=== PATIENT | male | born 1960 ===

== ENCOUNTER 2018-12-22 10:18 | Inpatient (IN) | payer MEDICARE ==
[2018-12-22] VITALS (14 sets, daily range): BP systolic 92–123; BP diastolic 42–58
[~2018-12-22] VITALS: Ht 182.9 cm; Wt 97.5 kg
[~2018-12-22 10:18] MED LIST: ACET500T33 PO; ATOR40TA59 PO; BISA10SU55 RC; BISACODYL 10 MG SUPP.RECT. ONE; BISACODYL 10 MG SUPP.RECT. PR PRN; BUPIVAC MPF-EPI 0.5%-1:200000 30 ML VIAL. ONE; CARV12.511 PO; CHOL10003 PO; DEXAMETHASONE SOD PHOS 20 MG/5 ML VIAL. ONE; FAMOTIDINE 20 MG/2 ML VIAL ONE; HEPARIN 1,000 UNIT in IV NORMAL SALINE 1,000 ML for SURG PERIOP IRR ONE; HYDROmorphone 2 MG/ML VIAL IV PRN; IBUPROFEN 200 MG TABLET. PO SCH; INSU100V SQ; IOHEXOL 300 MG/ML 100ML VIAL. ONE; IPRA3AMP29 NEB; IV RINGERS,LACTATED 1000ML 1,000 ML IV SCH; LIDOCAINE 2% PF 5 ML VIAL. ONE; MIDAZOLAM HCL/PF 2 MG/2 ML VIAL. ONE; MORPHINE SULFATE 2 MG/ML VIAL. IV PRN; ONDA4VIA7 IJ; ONDANSETRON PF 4 MG/2 ML VIAL. IV PRN; ONDANSETRON PF 4 MG/2 ML VIAL. ONE; PIOG15TA42 PO; PROCHLORPERAZINE 10 MG/2 ML VIAL. IV PRN; PROPOFOL 20 ML IV ONE; ROCURONIUM 50 MG/5 ML VIAL. ONE; SENN-37 PO; SIME80TA14 PO; SURGICEL HEMOSTAT 4X8 EACH. ONE; [UNRECOGNIZED DRUG - CODE] IV; fentaNYL PF VIAL 100 MCG/2 ML VIAL IV PRN; fentaNYL PF VIAL 100 MCG/2 ML VIAL ONE
--- NOTE | 2018-12-22 11:35 | PDOC1 ---
History and Physical Date of Admission Date of Admission DATE: 12/22/18 TIME: 11:21 Identification/Chief Complaint Chief Complaint Inability to eat Source Source: Chart review, Patient History of Present Illness History of Present Illness 58 yo M admitted to [facility] on 11/09 with abd pain and weakness going on for 3 weeks prior to this. He was diagnosed with severe necrotizing pancreatitis. This is noted to be EtOH induced. He was treated there with conservative management with gradual improvement. He was treated with TPN. He was transferred to [facility] on 11/17 with continued management. He has been unable to eat during this time. Multiple images have demonstrated a large pancreatic pseudocyst which has been persistent and stable with obstruction of the stomach. Patient has been unable to eat secondary to this. GI has evaluated and he has been followed. Given this finding, pt is best served by pancreatic pseudocystgastrostomy with concurrent cholecystectomy (occult microlithiasis). He is seen in preop and currently without new c/o. His abdominal pain has essentially resolved. Past Medical History Cardiovascular: AFIB, CAD, Hyperlipidemia Endocrine: Diabetes Past Surgical History Past Surgical History: CABG Family History Family History: No Significant Social History Smoke: No ALCOHOL: heavy Current Medications Current Medications Current Medications Heparin Sodium (Porcine) 1000 unit/Sodium Chloride 1,001 ml @ 1,001 mls/hr 1X ONCE IRR ; Start 12/22/18 at 06:00; Stop 12/22/18 at 06:59; Status DC Ondansetron HCl (Zofran) 4 mg PRN Q6HRS PRN IV NAUSEA/VOMITING; Start 12/22/18 at 07:00; Stop 12/23/18 at 06:59 Fentanyl Citrate (Fentanyl 2ml Vial) 25 mcg PRN Q5MIN PRN IV MILD PAIN; Start 12/22/18 at 07:00; Stop 12/23/18 at 06:59 Fentanyl Citrate (Fentanyl 2ml Vial) 50 mcg PRN Q5MIN PRN IV MODERATE TO SEVERE PAIN; Start 12/22/18 at 07:00; Stop 12/23/18 at 06:59 Morphine Sulfate (Morphine Sulfate) 1 mg PRN Q10MIN PRN IV SEVERE PAIN; Start 12/22/18 at 07:00; Stop 12/23/18 at 06:59 Ringer's Solution 1,000 ml @ 30 mls/hr Q24H IV Last administered on 12/22/18at 10:55; Start 12/22/18 at 07:00; Stop 12/22/18 at 18:59 Hydromorphone HCl (Dilaudid) 0.5 mg PRN Q10MIN PRN IV SEV PAIN, Second choice; Start 12/22/18 at 07:00; Stop 12/23/18 at 06:59 Prochlorperazine Edisylate (Compazine) 5 mg PACU PRN PRN IV NAUSEA, MRX1; Start 12/22/18 at 07:00; Stop 12/23/18 at 06:59 Ibuprofen (Motrin) 200 mg 1X PREOP PO ; Start 12/22/18 at 08:00 Cefazolin Sodium/ Dextrose 50 ml @ 100 mls/hr 1X PREOP PRN IV PRIOR TO PROCEDURE; Start 12/22/18 at 06:00; Stop 12/22/18 at 18:00 Bisacodyl (Dulcolax Supp) 10 mg 1X PRN PRN [place] CONSTIPATION; Start 12/22/18 at 08:00; Stop 12/22/18 at 18:00 Bupivacaine HCl/ Epinephrine Bitart (Sensorcain-Mpf Epi 0.5%-1:635395) 30 ml STK -MED ONCE .ROUTE ; Start 12/22/18 at 07:03; Stop 12/22/18 at 08:05; Status DC Iohexol (Omnipaque 300 Mg/ml) 100 ml STK-MED ONCE .ROUTE ; Start 12/22/18 at 07: 03; Stop 12/22/18 at 08:05; Status DC Cellulose (Surgicel Hemostat 4x8) 1 each STK-MED ONCE .ROUTE ; Start 12/22/18 at 07:03; Stop 12/22/18 at 08:05; Status DC Bisacodyl (Dulcolax Supp) 10 mg STK-MED ONCE .ROUTE ; Start 12/22/18 at 07:03; Stop 12/22/18 at 08:05; Status DC Propofol 20 ml @ As Directed STK-MED ONCE IV ; Start 12/22/18 at 09:59; Stop at 10:00; Status DC Lidocaine HCl (Lidocaine Pf 2% Vial) 5 ml STK-MED ONCE .ROUTE ; Start 12/22/18 at 09:59; Stop 12/22/18 at 10:00; Status DC Dexamethasone Sodium Phosphate (Decadron) 20 mg STK-MED ONCE .ROUTE ; Start at 09:59; Stop 12/22/18 at 10:00; Status DC Ondansetron HCl (Zofran) 4 mg STK-MED ONCE .ROUTE ; Start 12/22/18 at 09:59; Stop 12/22/18 at 10:00; Status DC Famotidine (Pepcid Vial) 20 mg STK-MED ONCE .ROUTE ; Start 12/22/18 at 09:59; Stop 12/22/18 at 10:00; Status DC Rocuronium [place] (Zemuron) 50 mg STK-MED ONCE .ROUTE ; Start 12/22/18 at 10:00 ; Stop 12/22/18 at 10:01; Status DC Midazolam HCl (Versed) 2 mg STK-MED ONCE .ROUTE ; Start 12/22/18 at 10:00; Stop 12/22/18 at 10:01; Status DC Fentanyl Citrate (Fentanyl 2ml Vial) 100 mcg STK-MED ONCE .ROUTE ; Start at 10:01; Stop 12/22/18 at 10:02; Status DC Active Scripts Active Reported Trophamine (Amino Acids 10 %) 500 Ml Iv.soln 500 Ml IV DAILY 2000 Duoneb 0.5-3(2.5) Mg/3 Ml (Albuterol/Ipratropium) 3 Ml Ampul.neb 3 Ml NEB BID Dulcolax (Bisacodyl) 10 Mg Supp.rect 10 Mg RC PRN DAILY PRN Duoneb 0.5-3(2.5) Mg/3 Ml (Albuterol/Ipratropium) 3 Ml Ampul.neb 3 Ml NEB PRN Q4HRS PRN Atorvastatin Calcium 40 Mg Tablet 1 Tab PO QHS Simethicone 80 Mg Tab.chew 80 Mg PO PRN TID PRN Humalog (Insulin Lispro) 100 Unit/1 Ml Vial 0 SQ Q6HRS Ondansetron Hcl 4 Mg/2 Ml Vial (Ondansetron Hcl/Pf) 4 Mg/2 Ml Vial 4 Mg IJ PRN Q6HRS PRN Actos (Pioglitazone Hcl) 15 Mg Tablet 1 Tab PO DAILY Tylenol Extra Strength (Acetaminophen) 500 Mg Tablet 1,000 Mg PO PRN Q6HRS PRN Senokot-S Tablet (Sennosides/Docusate Sodium) 1 Each Tablet 1 Tab PO BID Vitamin D3 (Cholecalciferol (Vitamin D3)) 1,000 Unit Tablet 1 Tab PO DAILY Carvedilol (Carvedilol) 12.5 Mg Tablet 12.5 Mg PO BIDWMEALS Allergies Allergies: Coded Allergies: No Known Drug Allergies (Unverified , 12/22/18) ROS PSYCHOLOGICAL ROS: YES: Concentration difficultie Gastrointestinal: Yes Nausea, Yes Other (poor po intake) Physical Exam General: Alert, Oriented X3, Cooperative, No acute distress HEENT: Atraumatic Lungs: Normal air movement Abdomen: Soft, No tenderness, No masses Rectal Exam: not examined Extremities: No clubbing, No cyanosis Skin: No rashes, No breakdown Neuro: Normal speech, Sensation intact Psych/Mental Status: Mental status NL, Mood NL Vitals Vitals Vital Signs Date Time Temp Pulse Resp B/P (MAP) Pulse Ox O2 Delivery O2 Flow Rate FiO2 12/22/18 10:52 98.1 67 18 104/57 92 Nasal Cannula 3 98.1 Labs Labs Laboratory Tests Test 12/22/18 10:42 Glucose (Fingerstick) 120 mg/dL (70-99) Laboratory Tests Test 12/22/18 10:42 Glucose (Fingerstick) 120 mg/dL (70-99) Images Images CT 12/14/2018-large pancreatic pseudocyst, stable, small free fluid, proximal small bowel distention, stable atelectasis and effusions VTE Prophylaxis Ordered VTE Prophylaxis Devices: Yes VTE Pharmacological Prophylaxi: Contraindicated Assessment/Plan Assessment/Plan Large pancreatic pseudocyst, not resolved with conservative measures and impinging on stomach, preventing PO intake. TO OR for laparoscopic versus open cystgastrostomy and cholecystectomy with cholangiogram. R/R/B/A d/w pt, as previous discussed on multiple occasions. Multiple discussions with other attending physicians. Risks, including, but not limited to: bleeding, infection, damage to surrounding structures, risk of anesthesia, risk of open. He appears to understand, his questions are answered and he elects to proceed. GOMEZ BRADLEY MD Dec 22, 2018 11:35
[2018-12-22] MEDS ORDERED: ePHEDrine PF IN SALINE 50 MG/10 ML SYRINGE. IV ONE ×2 (11:42→14:29)
[2018-12-22] MEDS ORDERED: ceFAZolin 2GM PREMIX 2 GM/50 ML BAG IV ONE (12:00)
[2018-12-22] MEDS ORDERED: GLYCOPYRROLATE 1 MG/5 ML VIAL. ONE (12:28)
[2018-12-22] MEDS ORDERED: NEOSTIGMINE METHYLSULFATE 5 MG/5 ML SYRINGE. ONE (12:29)
[2018-12-22] MEDS ORDERED: SEVOFLURANE > 120 MINUTES. IH ONE (12:35)
[2018-12-22] MEDS ORDERED: PHENYLEPHRINE in 0.9% NACL PF 1 MG/10 ML SYRINGE. IV ONE (12:39)
[2018-12-22] MEDS ORDERED: ALBUMIN HUMAN 5% 500 ML IV ONE ×2 (12:48→13:57)
[2018-12-22] MEDS ORDERED: PHENYLEPHRINE 10 MG/ML VIAL. ONE (12:49)
[2018-12-22] MEDS ORDERED: ROCURONIUM 50 MG/5 ML VIAL. ONE ×2 (13:04→13:52)
[2018-12-22] MEDS ORDERED: 0.9 % SODIUM CHLORIDE 10 ML DISP.SYRIN. IV PRN (14:45)
[2018-12-22] MEDS ORDERED: MORPHINE SULFATE/PF 30 ML IV PRN (14:45)
[2018-12-22] MEDS ORDERED: NALOXONE 0.4 MG/ML VIAL. IV PRN (14:45)
[2018-12-22] MEDS ORDERED: ONDANSETRON PF 4 MG/2 ML VIAL. IV PRN (14:45)
--- NOTE | 2018-12-22 14:54 | RAD ---
Portable abdomen, 12/22/2018: HISTORY: Postop evaluation A single AP view centered at the level of the left midabdomen was obtained. The right flank region and lower pelvis was not included on this exam. This image reveals a gastrostomy tube in place. An additional tube overlying the right upper quadrant is probably a surgical drain. The abdominal gas pattern is unremarkable. There is no evidence of a retained surgical instrument, needle or radiopaque sponge on this limited exam. Electronically signed by: Michoacano Bruce MD (12/22/2018 2:51 PM) [facility]
--- NOTE | 2018-12-22 15:00 | PDOC4 ---
OPERATIVE NOTE Date: Date: Dec 22, 2018 Pre-Op Diagnosis: Severe pancreatitis with resultant pancreatic pseudocyst Post-Op Diagnosis: same, severe cholecystitis Procedure Performed: Laparoscopic converted to open pancreatic pseudocystgastrostomy, open cholecystectomy, G-tube placement Surgeon: Delfino Bradley Asst: Dr. Rainer Patricia Anesthesia Type: GETA Blood Loss: 1000 Specimans Obtained: gallbladder, pseudocyst wall, debridement material, and fluid, cultures and cytology Findings: Severe cholecystitis with obliteration of surgical plans, large pancreatic pseudocyst with stomach impingement Complications: none Operative Note: After obtaining informed consent (also d/w pt's supportive brother), patient was taken to OR, induced under GETA and prepped in the usual fashion. 5 mm port placed umbilical and LLQ, all under laparoscopic guidance. This demonstrated large cyst with minimal availability to do pneumoperitoneum. Given this, an open procedure is elected. An upper abdominal incision made with cautery. Minimal subcutaneous fat but large amount of intraabdominal visceral fat. Stomach identified and anterior gastrotomy opened. Posterior defect excised with cautery and ligasure. This excised stomach/cyst wall was excised and sent to pathology. 2 liters of fluid was evacuated with collapse of cyst. Necrotic tissue was excised using digital dissection. Cyst was mature without opening into any other cavity. Cyst cavity was well adherent to stomach. 20 Gastrostomy was placed through anterior defect with 3 0 vicryl pursestring and attachment to anterior abdominal wall with multiple 3 0 vicryl. Attention was then turned to gallbladder. This was extremely inflamed with obliteration of surgical planes. Gallbladder was necrotic with purulent contents, which were spilled, secondary to fragility. Gallbladder taken off fossa in a dome down fashion using cautery. An obvious cystic duct was not identified. Further dissection was not indicated, given potential for injury of common bile duct or other structures, given obliteration of planes. An obvious cystic duct could not be evaluated intraluminal. As such, a contour stapler was taken at the base. Even here, there was some necrotic tissue. This was oversewn using 3 0 vicryl. Gallbladder sent to pathology for evaluation. Most of blood loss occurred with this gallbladder dissection. Hemostasis was obtained with removal of gallbladder, cautery and surgicel. Copious irrigation. No evidence of bleeding or other pathology. 19 MISTY drain was placed in fossa and secured with 3 0 nylon. G-tube secured with 3 0 nylon. Fascia closed with 0 looped PDS. Skin repaired with 3 0 vicryl and 4 0 monocryl. Dressing placed. Patient tolerated the procedure but was noted to be low on volume throughout. Given extensive infected nature of the procedure, he will be transferred to ICU in a vented condition. All counts correct. Wound class is 4, dirty. GOMEZ BRADLEY MD Dec 22, 2018 15:00
[2018-12-22 15:33] LABS: BASE EXCESS ABG 2 mmol/L (-3-3); HCO3 ABG 26 mmol/L (21-28); PCO2 ABG 38 mmHg (35-46); PO2 ABG 84 mmHg (75-108)
--- NOTE | 2018-12-22 15:33 | PDOC ---
Date and Time In operating room patient developed low blood pressures unresponsive to usual doses of pressors. We were unable to give fluid rapidly through existing PIC line. He was started on dopamine and I placed a R IJ 3 lumen, CVP was 7. Given 1000 ml Albumin as well as 1L LR rapidly with stabilization of BP but continued to require dopamine. CVP continued to decline to 4. Arterial line was also placed. Thought is that he may be getting septic from gallbladder. With that in mind he was left intubated. EBL was less than 1000. Will continue dopamine. Dr Cook aware. Current Medications Current Medications Heparin Sodium (Porcine) 1000 unit/Sodium Chloride 1,001 ml @ 1,001 mls/hr 1X ONCE IRR Last administered on 12/22/18at 12:56; Start 12/22/18 at 06:00; Stop at 06:59; Status DC Ondansetron HCl (Zofran) 4 mg PRN Q6HRS PRN IV NAUSEA/VOMITING; Start 12/22/18 at 07:00; Stop 12/23/18 at 06:59 Fentanyl Citrate (Fentanyl 2ml Vial) 25 mcg PRN Q5MIN PRN IV MILD PAIN; Start 12/22/18 at 07:00; Stop 12/23/18 at 06:59 Fentanyl Citrate (Fentanyl 2ml Vial) 50 mcg PRN Q5MIN PRN IV MODERATE TO SEVERE PAIN; Start 12/22/18 at 07:00; Stop 12/23/18 at 06:59 Morphine Sulfate (Morphine Sulfate) 1 mg PRN Q10MIN PRN IV SEVERE PAIN; Start 12/22/18 at 07:00; Stop 12/23/18 at 06:59 Ringer's Solution 1,000 ml @ 30 mls/hr Q24H IV Last administered on 12/22/18at 10:55; Start 12/22/18 at 07:00; Stop 12/22/18 at 18:59 Hydromorphone HCl (Dilaudid) 0.5 mg PRN Q10MIN PRN IV SEV PAIN, Second choice; Start 12/22/18 at 07:00; Stop 12/23/18 at 06:59 Prochlorperazine Edisylate (Compazine) 5 mg PACU PRN PRN IV NAUSEA, MRX1; Start 12/22/18 at 07:00; Stop 12/23/18 at 06:59 Ibuprofen (Motrin) 200 mg 1X PREOP PO ; Start 12/22/18 at 08:00 Cefazolin Sodium/ Dextrose 50 ml @ 100 mls/hr 1X PREOP PRN IV PRIOR TO PROCEDURE Last administered on 12/22/18at 11:28; Start 12/22/18 at 06:00; Stop at 18:00 Bisacodyl (Dulcolax Supp) 10 mg 1X PRN PRN [place] CONSTIPATION; Start 12/22/18 at 08:00; Stop 12/22/18 at 18:00 Bupivacaine HCl/ Epinephrine Bitart (Sensorcain-Mpf Epi 0.5%-1:889862) 30 ml STK -MED ONCE .ROUTE Last administered on 12/22/18at 12:23; Start 12/22/18 at 07:03 ; Stop 12/22/18 at 08:05; Status DC Iohexol (Omnipaque 300 Mg/ml) 100 ml STK-MED ONCE .ROUTE Last administered on at 12:24; Start 12/22/18 at 07:03; Stop 12/22/18 at 08:05; Status DC Cellulose (Surgicel Hemostat 4x8) 1 each STK-MED ONCE .ROUTE Last administered on 12/22/18at 13:58; Start 12/22/18 at 07:03; Stop 12/22/18 at 08:05; Status DC Bisacodyl (Dulcolax Supp) 10 mg STK-MED ONCE .ROUTE ; Start 12/22/18 at 07:03; Stop 12/22/18 at 08:05; Status DC Propofol 20 ml @ As Directed STK-MED ONCE IV ; Start 12/22/18 at 09:59; Stop at 10:00; Status DC Lidocaine HCl (Lidocaine Pf 2% Vial) 5 ml STK-MED ONCE .ROUTE ; Start 12/22/18 at 09:59; Stop 12/22/18 at 10:00; Status DC Dexamethasone Sodium Phosphate (Decadron) 20 mg STK-MED ONCE .ROUTE ; Start at 09:59; Stop 12/22/18 at 10:00; Status DC Ondansetron HCl (Zofran) 4 mg STK-MED ONCE .ROUTE ; Start 12/22/18 at 09:59; Stop 12/22/18 at 10:00; Status DC Famotidine (Pepcid Vial) 20 mg STK-MED ONCE .ROUTE ; Start 12/22/18 at 09:59; Stop 12/22/18 at 10:00; Status DC Rocuronium [place] (Zemuron) 50 mg STK-MED ONCE .ROUTE ; Start 12/22/18 at 10:00 ; Stop 12/22/18 at 10:01; Status DC Midazolam HCl (Versed) 2 mg STK-MED ONCE .ROUTE ; Start 12/22/18 at 10:00; Stop 12/22/18 at 10:01; Status DC Fentanyl Citrate (Fentanyl 2ml Vial) 100 mcg STK-MED ONCE .ROUTE ; Start at 10:01; Stop 12/22/18 at 10:02; Status DC Ephedrine Sulfate (ePHEDrine PF IN SALINE SYRINGE) 50 mg STK-MED ONCE IV ; Start 12/22/18 at 11:42; Stop 12/22/18 at 11:43; Status DC Glycopyrrolate (Robinul) 1 mg STK-MED ONCE .ROUTE ; Start 12/22/18 at 12:28; Stop 12/22/18 at 12:29; Status DC Neostigmine Methylsulfate (Neostigmine Methylsulfate) 5 mg STK-MED ONCE .ROUTE ; Start 12/22/18 at 12:29; Stop 12/22/18 at 12:30; Status DC Sevoflurane (Ultane) 90 ml STK-MED ONCE IH ; Start 12/22/18 at 12:35; Stop 12/22 at 12:36; Status DC Phenylephrine HCl (PHENYLEPHRINE in 0.9% NACL PF) 1 mg STK-MED ONCE IV ; Start 12/22/18 at 12:39; Stop 12/22/18 at 12:40; Status DC Albumin Human 500 ml @ As Directed STK-MED ONCE IV ; Start 12/22/18 at 12:48; Stop 12/22/18 at 12:49; Status DC Phenylephrine HCl ([place]-Synephrine Inj) 10 mg STK-MED ONCE .ROUTE ; Start at 12:49; Stop 12/22/18 at 12:50; Status DC Rocuronium [place] (Zemuron) 50 mg STK-MED ONCE .ROUTE ; Start 12/22/18 at 13:04 ; Stop 12/22/18 at 13:05; Status DC Dopamine HCl/ Dextrose 250 ml @ As Directed STK-MED ONCE IV ; Start 12/22/18 at 13:15; Stop 12/22/18 at 13:16; Status DC Ephedrine Sulfate ([place]kovaz) 50 mg STK-MED ONCE .ROUTE ; Start 12/22/18 at 13:52; Stop 12/22/18 at 13:53; Status DC Rocuronium [place] (Zemuron) 50 mg STK-MED ONCE .ROUTE ; Start 12/22/18 at 13:52 ; Stop 12/22/18 at 13:53; Status DC Albumin Human 500 ml @ As Directed STK-MED ONCE IV ; Start 12/22/18 at 13:57; Stop 12/22/18 at 13:58; Status DC Ephedrine Sulfate (ePHEDrine PF IN SALINE SYRINGE) 50 mg STK-MED ONCE IV ; Start 12/22/18 at 14:29; Stop 12/22/18 at 14:30; Status DC Metronidazole 100 ml @ 100 mls/hr Q12HR IV ; Start 12/22/18 at 21:00; Status UNV Cefazolin Sodium/ Dextrose 50 ml @ 100 mls/hr Q8H IV ; Start 12/22/18 at 15:00 ; Status UNV Enoxaparin Sodium (Lovenox 40mg Syringe) 40 mg Q24H SQ ; Start 12/23/18 at 09:00 Sodium Chloride (Normal Saline Flush) 3 ml QSHIFT PRN IV AFTER MEDS AND BLOOD DRAWS; Start 12/22/18 at 14:45 Ringer's Solution 1,000 ml @ 100 mls/hr Q10H IV ; Start 12/22/18 at 16:00 Naloxone HCl (Narcan) 0.4 mg PRN Q2MIN PRN IV SEE INSTRUCTIONS; Start 12/22/18 at 14:45 Sodium Chloride 1,000 ml @ 25 mls/hr Q24H IV ; Start 12/22/18 at 16:00 Morphine Sulfate 30 ml @ 0 mls/hr CONT PRN PRN IV PER PROTOCOL; Start 12/22/18 at 14:45 Ondansetron HCl (Zofran) 4 mg PRN Q6HRS PRN IV NAUESA, 1ST CHOICE; Start at 14:45 Chlorhexidine Gluconate (Peridex) 15 ml BID MM ; Start 12/22/18 at 21:00; Status UNV Active Scripts Active Reported Trophamine (Amino Acids 10 %) 500 Ml Iv.soln 500 Ml IV DAILY 2000 Duoneb 0.5-3(2.5) Mg/3 Ml (Albuterol/Ipratropium) 3 Ml Ampul.neb 3 Ml NEB BID Dulcolax (Bisacodyl) 10 Mg Supp.rect 10 Mg RC PRN DAILY PRN Duoneb 0.5-3(2.5) Mg/3 Ml (Albuterol/Ipratropium) 3 Ml Ampul.neb 3 Ml NEB PRN Q4HRS PRN Atorvastatin Calcium 40 Mg Tablet 1 Tab PO QHS Simethicone 80 Mg Tab.chew 80 Mg PO PRN TID PRN Humalog (Insulin Lispro) 100 Unit/1 Ml Vial 0 SQ Q6HRS Ondansetron Hcl 4 Mg/2 Ml Vial (Ondansetron Hcl/Pf) 4 Mg/2 Ml Vial 4 Mg IJ PRN Q6HRS PRN Actos (Pioglitazone Hcl) 15 Mg Tablet 1 Tab PO DAILY Tylenol Extra Strength (Acetaminophen) 500 Mg Tablet 1,000 Mg PO PRN Q6HRS PRN Senokot-S Tablet (Sennosides/Docusate Sodium) 1 Each Tablet 1 Tab PO BID Vitamin D3 (Cholecalciferol (Vitamin D3)) 1,000 Unit Tablet 1 Tab PO DAILY Carvedilol (Carvedilol) 12.5 Mg Tablet 12.5 Mg PO BIDWMEALS Pertinent Labs/Test Laboratory Tests Test 12/22/18 10:42 Glucose (Fingerstick) 120 mg/dL (70-99) Laboratory Tests Test 12/22/18 10:42 Glucose (Fingerstick) 120 mg/dL (70-99) LAST VITALS Vital Signs Date Time Temp Pulse Resp B/P (MAP) Pulse Ox O2 Delivery O2 Flow Rate FiO2 12/22/18 10:52 98.1 67 18 104/57 92 Nasal Cannula 3 98.1 SHAN RANGEL MD Dec 22, 2018 15:33
[2018-12-22 15:37] LABS: FIO2 ABG 60
[2018-12-22] MEDS: IV RINGERS,LACTATED 1000ML 1,000 ML IV SCH (16:00)
[2018-12-22] MEDS: IV NORMAL SALINE 1000ML BAG 1,000 ML IV SCH (16:00)
[2018-12-22] MEDS: MIDAZOLAM 100mg/100ml NS BAG 100 ML IV PRN (16:09)
--- NOTE | 2018-12-22 16:18 | RAD ---
Portable chest, 12/22/2018: HISTORY: Check ET tube placement No previous chest radiographs are available at this time for comparison purposes. There has been a previous median sternotomy. The ET tube tip lies 5-6 cm above the juan. A right jugular central venous catheter extends into the superior vena cava. A right PICC extends into the inferior aspect of the superior vena cava. The heart is at the upper limits of normal in size. The left hemidiaphragm is obscured suggesting pleural fluid and/or infiltrate in the left base. There is minimal streaky right infrahilar atelectasis/infiltrate. There is no evidence of pneumothorax. IMPRESSION: 1. Satisfactory tube positions as described above. 2. Moderate left basilar opacity suggesting pleural fluid and underlying atelectasis/infiltrate. 3. Mild right infrahilar atelectasis/infiltrate. Electronically signed by: Michoacano Bruce MD (12/22/2018 4:15 PM) [facility]
--- NOTE | 2018-12-22 19:29 | NUR ---
Nursing Note 1500- Pt arrived to ICU room 114 at this time accompanied by PACU team. Pt intubated. Ventilator set up by RT. Dopamine infusing through right IJ at 15mcg/kg/min. VSS. Orders in place to admit pt to ICU post op instead of 4N. Pts family at bedside. Will continue monitor.
[2018-12-22 20:47] LABS: BASO % 1 % (0-3); EOS # 0.1 x10^3/uL (0.0-0.7); EOS % 1 % (0-3); HEMATOCRIT 22.1 % (39.0-53.0); LYMPH # 0.6 x10^3/uL (1.0-4.8); LYMPH % 10 % (24-48); MEAN CORPUSCULAR HEMOGLOBIN 25 pg (25-35); MEAN CORPUSCULAR HGB CONC 31 g/dL (31-37); MEAN CORPUSCULAR VOLUME 80 fL (79-100); MONO # 0.5 x10^3/uL (0.0-1.1); MONO % 9 % (0-9); NEUT # 4.7 x10^3uL (1.8-7.7); NEUT % 80 % (31-73); PLATELET COUNT 203 x10^3/uL (140-400); RED BLOOD COUNT 2.79 x10^6/uL (4.30-5.70); RED CELL DISTRIBUTION WIDTH 19.4 % (11.5-14.5); WHITE BLOOD COUNT 5.9 x10^3/uL (4.0-11.0)
[2018-12-22] MEDS: CHLORHEXIDINE 0.12% 15 ML MOUTHWASH. MM SCH (21:00)
[2018-12-23] VITALS (26 sets, daily range): BP systolic 98–135; BP diastolic 44–87
[2018-12-23] MEDS: MIDAZOLAM 100mg/100ml NS BAG 100 ML IV PRN ×2 (03:37→23:11)
[2018-12-23] MEDS: IV RINGERS,LACTATED 1000ML 1,000 ML IV SCH ×2 (03:38→15:07)
[2018-12-23 06:33] LABS: ALBUMIN 1.5 g/dL (3.4-5.0); ALBUMIN/GLOBULIN RATIO 0.5 (1.0-1.7); CALCIUM 7.6 mg/dL (8.5-10.1); CREATININE 0.6 mg/dL (0.7-1.3); GFR 138.4; MAGNESIUM 1.3 mg/dL (1.8-2.4); POTASSIUM 3.8 mmol/L (3.5-5.1); TOTAL BILIRUBIN 2.3 mg/dL (0.2-1.0); TOTAL PROTEIN 4.3 g/dL (6.4-8.2)
[2018-12-23 06:43] LABS: BASO # 0.1 x10^3/uL (0.0-0.2); BASO % 1 % (0-3); EOS # 0.1 x10^3/uL (0.0-0.7); EOS % 1 % (0-3); HEMATOCRIT 24.1 % (39.0-53.0); HEMOGLOBIN 7.5 g/dL (13.0-17.5); LYMPH # 0.8 x10^3/uL (1.0-4.8); LYMPH % 12 % (24-48); MEAN CORPUSCULAR HEMOGLOBIN 25 pg (25-35); MEAN CORPUSCULAR HGB CONC 31 g/dL (31-37); MEAN CORPUSCULAR VOLUME 79 fL (79-100); MONO # 0.7 x10^3/uL (0.0-1.1); MONO % 11 % (0-9); NEUT % 75 % (31-73); PLATELET COUNT 217 x10^3/uL (140-400); RED BLOOD COUNT 3.04 x10^6/uL (4.30-5.70); RED CELL DISTRIBUTION WIDTH 18.8 % (11.5-14.5); WHITE BLOOD COUNT 6.6 x10^3/uL (4.0-11.0)
--- NOTE | 2018-12-23 07:43 | EKG ---
[facility] [address] [place] [address] Test Date: 2018-12-23 Test Time: 02:07:36 Pat Name: JUSTIN OLSEN Department: Room: 114 1 Gender: M [employer]ter: : 1960 Requested By: REHANA CASE Order Number: [id number] Reading MD: Ra Chapman MD Measurements Intervals [place] Rate: 80 P: ME: QRS: 28 QRSD: 82 T: 22 QT: 456 QTc: 530 Interpretive Statements PROBABLE SR NON-SPECIFIC ST/T CHANGES PROLONGED QT Electronically Signed On 12-27-2018 21:51:26 CDT by Ra Chapman MD
--- NOTE | 2018-12-23 08:39 | RAD ---
Portable chest, 12/23/2018: HISTORY: Respiratory failure Comparison is made to yesterday's study. The ET tube tip lies well above the juan. The right jugular central venous catheter and right PICC are unchanged in positions. The heart is at the upper limits of normal in size. The moderate left basilar opacity appears to have worsened slightly. The appearance suggests pleural fluid with underlying atelectasis/infiltrate. There is mild unchanged atelectasis/infiltrate in the right base. There is no evidence of pneumothorax. IMPRESSION: 1. Stable tube positions. 2. Slight worsening of the left basilar opacity compatible with a moderate sized pleural effusion and underlying atelectasis/infiltrate. Electronically signed by: Michoacano Bruce MD (12/23/2018 8:36 AM) [facility]
--- NOTE | 2018-12-23 08:44 | PDOC ---
SURGICAL PROGRESS NOTE Subjective Pt intubated and sedated, on dopamine, but less then yesterday, noted to have increasing UOP and clear Vital Signs Vital Signs Date Time Temp Pulse Resp B/P (MAP) Pulse Ox O2 Delivery O2 Flow Rate FiO2 12/23/18 08:32 96 Ventilator 12/23/18 08:00 86 101/47 (65) 12/23/18 08:00 99.3 20 99.3 12/22/18 10:52 3 I&O Intake and Output 12/23/18 06:59 Intake Total 3071.93 ml Output Total 2225 ml Balance 846.93 ml Intake Oral 0 ml IV Total 3071.93 ml Output Urine Total 885 ml Drainage Total 1340 ml PATIENT HAS A MAGAÑA: Yes (accurate I and Os) General: No acute distress Abdomen: Soft, No tenderness, Other (G-tube with bilious output, MISTY with serosang drainage) Labs Laboratory Tests Test 12/22/18 10:42 12/22/18 15:30 12/22/18 20:05 12/23/18 06:00 Glucose (Fingerstick) 120 mg/dL (70-99) Arterial Blood pH 7.45 (7.35-7.45) Arterial Blood pCO2 at Patient Temp 38 mmHg (35-46) Arterial Blood pO2 at Patient Temp 84 mmHg (75-108) Arterial Blood HCO3 26 mmol/L (21-28) Arterial Blood Base Excess 2 mmol/L (-3-3) FiO2 60 White Blood Count 5.9 x10^3/uL (4.0-11.0) 6.6 x10^3/uL (4.0-11.0) Red Blood Count 2.79 x10^6/uL (4.30-5.70) 3.04 x10^6/uL (4.30-5.70) Hemoglobin 7.0 g/dL (13.0-17.5) 7.5 g/dL (13.0-17.5) Hematocrit 22.1 % (39.0-53.0) 24.1 % (39.0-53.0) Mean Corpuscular Volume 80 fL (79-100) 79 fL (79-100) Mean Corpuscular Hemoglobin 25 pg (25-35) 25 pg (25-35) Mean Corpuscular Hemoglobin Concent 31 g/dL (31-37) 31 g/dL (31-37) Red Cell Distribution Width 19.4 % (11.5-14.5) 18.8 % (11.5-14.5) Platelet Count 203 x10^3/uL (140-400) 217 x10^3/uL (140-400) Neutrophils (%) (Auto) 80 % (31-73) 75 % (31-73) Lymphocytes (%) (Auto) 10 % (24-48) 12 % (24-48) Monocytes (%) (Auto) 9 % (0-9) 11 % (0-9) Eosinophils (%) (Auto) 1 % (0-3) 1 % (0-3) Basophils (%) (Auto) 1 % (0-3) 1 % (0-3) Neutrophils # (Auto) 4.7 x10^3uL (1.8-7.7) 5.0 x10^3uL (1.8-7.7) Lymphocytes # (Auto) 0.6 x10^3/uL (1.0-4.8) 0.8 x10^3/uL (1.0-4.8) Monocytes # (Auto) 0.5 x10^3/uL (0.0-1.1) 0.7 x10^3/uL (0.0-1.1) Eosinophils # (Auto) 0.1 x10^3/uL (0.0-0.7) 0.1 x10^3/uL (0.0-0.7) Basophils # (Auto) 0.0 x10^3/uL (0.0-0.2) 0.1 x10^3/uL (0.0-0.2) Sodium Level 142 mmol/L (136-145) Potassium Level 3.8 mmol/L (3.5-5.1) Chloride Level 106 mmol/L (98-107) Carbon Dioxide Level 28 mmol/L (21-32) Anion Gap 8 (6-14) Blood Urea Nitrogen 16 mg/dL (8-26) Creatinine 0.6 mg/dL (0.7-1.3) Estimated GFR (Cockcroft-Gault) 138.4 BUN/Creatinine Ratio 27 (6-20) Glucose Level 195 mg/dL (70-99) Calcium Level 7.6 mg/dL (8.5-10.1) Magnesium Level 1.3 mg/dL (1.8-2.4) Total Bilirubin 2.3 mg/dL (0.2-1.0) Aspartate Amino Transf (AST/SGOT) 41 U/L (15-37) Alanine Aminotransferase (ALT/SGPT) 44 U/L (16-63) Alkaline Phosphatase 256 U/L (46-116) Total Protein 4.3 g/dL (6.4-8.2) Albumin 1.5 g/dL (3.4-5.0) Albumin/Globulin Ratio 0.5 (1.0-1.7) Laboratory Tests Test 12/22/18 10:42 12/22/18 15:30 12/22/18 20:05 12/23/18 06:00 Glucose (Fingerstick) 120 mg/dL (70-99) Arterial Blood pH 7.45 (7.35-7.45) Arterial Blood pCO2 at Patient Temp 38 mmHg (35-46) Arterial Blood pO2 at Patient Temp 84 mmHg (75-108) Arterial Blood HCO3 26 mmol/L (21-28) Arterial Blood Base Excess 2 mmol/L (-3-3) FiO2 60 White Blood Count 5.9 x10^3/uL (4.0-11.0) 6.6 x10^3/uL (4.0-11.0) Red Blood Count 2.79 x10^6/uL (4.30-5.70) 3.04 x10^6/uL (4.30-5.70) Hemoglobin 7.0 g/dL (13.0-17.5) 7.5 g/dL (13.0-17.5) Hematocrit 22.1 % (39.0-53.0) 24.1 % (39.0-53.0) Mean Corpuscular Volume 80 fL (79-100) 79 fL (79-100) Mean Corpuscular Hemoglobin 25 pg (25-35) 25 pg (25-35) Mean Corpuscular Hemoglobin Concent 31 g/dL (31-37) 31 g/dL (31-37) Red Cell Distribution Width 19.4 % (11.5-14.5) 18.8 % (11.5-14.5) Platelet Count 203 x10^3/uL (140-400) 217 x10^3/uL (140-400) Neutrophils (%) (Auto) 80 % (31-73) 75 % (31-73) Lymphocytes (%) (Auto) 10 % (24-48) 12 % (24-48) Monocytes (%) (Auto) 9 % (0-9) 11 % (0-9) Eosinophils (%) (Auto) 1 % (0-3) 1 % (0-3) Basophils (%) (Auto) 1 % (0-3) 1 % (0-3) Neutrophils # (Auto) 4.7 x10^3uL (1.8-7.7) 5.0 x10^3uL (1.8-7.7) Lymphocytes # (Auto) 0.6 x10^3/uL (1.0-4.8) 0.8 x10^3/uL (1.0-4.8) Monocytes # (Auto) 0.5 x10^3/uL (0.0-1.1) 0.7 x10^3/uL (0.0-1.1) Eosinophils # (Auto) 0.1 x10^3/uL (0.0-0.7) 0.1 x10^3/uL (0.0-0.7) Basophils # (Auto) 0.0 x10^3/uL (0.0-0.2) 0.1 x10^3/uL (0.0-0.2) Sodium Level 142 mmol/L (136-145) Potassium Level 3.8 mmol/L (3.5-5.1) Chloride Level 106 mmol/L (98-107) Carbon Dioxide Level 28 mmol/L (21-32) Anion Gap 8 (6-14) Blood Urea Nitrogen 16 mg/dL (8-26) Creatinine 0.6 mg/dL (0.7-1.3) Estimated GFR (Cockcroft-Gault) 138.4 BUN/Creatinine Ratio 27 (6-20) Glucose Level 195 mg/dL (70-99) Calcium Level 7.6 mg/dL (8.5-10.1) Magnesium Level 1.3 mg/dL (1.8-2.4) Total Bilirubin 2.3 mg/dL (0.2-1.0) Aspartate Amino Transf (AST/SGOT) 41 U/L (15-37) Alanine Aminotransferase (ALT/SGPT) 44 U/L (16-63) Alkaline Phosphatase 256 U/L (46-116) Total Protein 4.3 g/dL (6.4-8.2) Albumin 1.5 g/dL (3.4-5.0) Albumin/Globulin Ratio 0.5 (1.0-1.7) Problem List s/p xlap cont critical care and vent per pulm appears to be more stable today. GOMEZ BRADLEY MD Dec 23, 2018 08:44
[2018-12-23] MEDS ORDERED: MAGNESIUM SULFATE 4GM 100 ML IV ONE (09:00)
[2018-12-23] MEDS ORDERED: FUROSEMIDE 20 MG/2 ML VIAL. IVP ONE (09:15)
[2018-12-23] MEDS ORDERED: ALBUMIN HUMAN 25% 100 ML IV ONE (09:15)
[2018-12-23] MEDS: ENOXAPARIN 40 MG/0.4 ML SYRINGE. SQ SCH (09:28)
[2018-12-23] MEDS: CHLORHEXIDINE 0.12% 15 ML MOUTHWASH. MM SCH ×2 (09:28→22:14)
[2018-12-23 09:29] LABS: BASE EXCESS ABG 2 mmol/L (-3-3); HCO3 ABG 25 mmol/L (21-28); PCO2 ABG 31 mmHg (35-46); PO2 ABG 79 mmHg (75-108); SAT O2 ABG 95 % (92-99)
[2018-12-23 09:41] LABS: FIO2 ABG 50
[2018-12-23] MEDS: MAGNESIUM SULFATE 2GM 50 ML IV SCH ×2 (09:47→12:09)
--- NOTE | 2018-12-23 10:01 | PDOC ---
Provider Note Provider Note Consult dictated number [phone]. Condition treatment options prognosis extensively discussed with the patient's brother Weston at bedside. REHANA CASE MD Dec 23, 2018 10:01
--- NOTE | 2018-12-23 10:08 | PDOC ---
PULMONARY PROGRESS NOTES Subjective PT SEDATED ON PRESSORS AC MODE Vitals Vital Signs Date Time Temp Pulse Resp B/P (MAP) Pulse Ox O2 Delivery O2 Flow Rate FiO2 12/23/18 09:00 85 20 108/50 (69) 96 Ventilator 12/23/18 08:00 99.3 99.3 12/22/18 10:52 3 ROS: No Nausea Lungs: Crackles Cardiovascular: S1, S2 Abdomen: Soft, Other (G TUBE) Extremities: Other (EDEMA) Skin: Warm Labs Laboratory Tests Test 12/22/18 10:42 12/22/18 15:30 12/22/18 20:05 12/23/18 06:00 Glucose (Fingerstick) 120 mg/dL (70-99) Arterial Blood pH 7.45 (7.35-7.45) Arterial Blood pCO2 at Patient Temp 38 mmHg (35-46) Arterial Blood pO2 at Patient Temp 84 mmHg (75-108) Arterial Blood HCO3 26 mmol/L (21-28) Arterial Blood Base Excess 2 mmol/L (-3-3) FiO2 60 White Blood Count 5.9 x10^3/uL (4.0-11.0) 6.6 x10^3/uL (4.0-11.0) Red Blood Count 2.79 x10^6/uL (4.30-5.70) 3.04 x10^6/uL (4.30-5.70) Hemoglobin 7.0 g/dL (13.0-17.5) 7.5 g/dL (13.0-17.5) Hematocrit 22.1 % (39.0-53.0) 24.1 % (39.0-53.0) Mean Corpuscular Volume 80 fL (79-100) 79 fL (79-100) Mean Corpuscular Hemoglobin 25 pg (25-35) 25 pg (25-35) Mean Corpuscular Hemoglobin Concent 31 g/dL (31-37) 31 g/dL (31-37) Red Cell Distribution Width 19.4 % (11.5-14.5) 18.8 % (11.5-14.5) Platelet Count 203 x10^3/uL (140-400) 217 x10^3/uL (140-400) Neutrophils (%) (Auto) 80 % (31-73) 75 % (31-73) Lymphocytes (%) (Auto) 10 % (24-48) 12 % (24-48) Monocytes (%) (Auto) 9 % (0-9) 11 % (0-9) Eosinophils (%) (Auto) 1 % (0-3) 1 % (0-3) Basophils (%) (Auto) 1 % (0-3) 1 % (0-3) Neutrophils # (Auto) 4.7 x10^3uL (1.8-7.7) 5.0 x10^3uL (1.8-7.7) Lymphocytes # (Auto) 0.6 x10^3/uL (1.0-4.8) 0.8 x10^3/uL (1.0-4.8) Monocytes # (Auto) 0.5 x10^3/uL (0.0-1.1) 0.7 x10^3/uL (0.0-1.1) Eosinophils # (Auto) 0.1 x10^3/uL (0.0-0.7) 0.1 x10^3/uL (0.0-0.7) Basophils # (Auto) 0.0 x10^3/uL (0.0-0.2) 0.1 x10^3/uL (0.0-0.2) Sodium Level 142 mmol/L (136-145) Potassium Level 3.8 mmol/L (3.5-5.1) Chloride Level 106 mmol/L (98-107) Carbon Dioxide Level 28 mmol/L (21-32) Anion Gap 8 (6-14) Blood Urea Nitrogen 16 mg/dL (8-26) Creatinine 0.6 mg/dL (0.7-1.3) Estimated GFR (Cockcroft-Gault) 138.4 BUN/Creatinine Ratio 27 (6-20) Glucose Level 195 mg/dL (70-99) Calcium Level 7.6 mg/dL (8.5-10.1) Phosphorus Level 3.8 mg/dL (2.6-4.7) Magnesium Level 1.3 mg/dL (1.8-2.4) Total Bilirubin 2.3 mg/dL (0.2-1.0) Aspartate Amino Transf (AST/SGOT) 41 U/L (15-37) Alanine Aminotransferase (ALT/SGPT) 44 U/L (16-63) Alkaline Phosphatase 256 U/L (46-116) Total Protein 4.3 g/dL (6.4-8.2) Albumin 1.5 g/dL (3.4-5.0) Albumin/Globulin Ratio 0.5 (1.0-1.7) Test 12/23/18 08:35 O2 Saturation 95 % (92-99) Arterial Blood pH 7.52 (7.35-7.45) Arterial Blood pCO2 at Patient Temp 31 mmHg (35-46) Arterial Blood pO2 at Patient Temp 79 mmHg (75-108) Arterial Blood HCO3 25 mmol/L (21-28) Arterial Blood Base Excess 2 mmol/L (-3-3) FiO2 50 Laboratory Tests Test 12/22/18 10:42 12/22/18 15:30 12/22/18 20:05 12/23/18 06:00 Glucose (Fingerstick) 120 mg/dL (70-99) Arterial Blood pH 7.45 (7.35-7.45) Arterial Blood pCO2 at Patient Temp 38 mmHg (35-46) Arterial Blood pO2 at Patient Temp 84 mmHg (75-108) Arterial Blood HCO3 26 mmol/L (21-28) Arterial Blood Base Excess 2 mmol/L (-3-3) FiO2 60 White Blood Count 5.9 x10^3/uL (4.0-11.0) 6.6 x10^3/uL (4.0-11.0) Red Blood Count 2.79 x10^6/uL (4.30-5.70) 3.04 x10^6/uL (4.30-5.70) Hemoglobin 7.0 g/dL (13.0-17.5) 7.5 g/dL (13.0-17.5) Hematocrit 22.1 % (39.0-53.0) 24.1 % (39.0-53.0) Mean Corpuscular Volume 80 fL (79-100) 79 fL (79-100) Mean Corpuscular Hemoglobin 25 pg (25-35) 25 pg (25-35) Mean Corpuscular Hemoglobin Concent 31 g/dL (31-37) 31 g/dL (31-37) Red Cell Distribution Width 19.4 % (11.5-14.5) 18.8 % (11.5-14.5) Platelet Count 203 x10^3/uL (140-400) 217 x10^3/uL (140-400) Neutrophils (%) (Auto) 80 % (31-73) 75 % (31-73) Lymphocytes (%) (Auto) 10 % (24-48) 12 % (24-48) Monocytes (%) (Auto) 9 % (0-9) 11 % (0-9) Eosinophils (%) (Auto) 1 % (0-3) 1 % (0-3) Basophils (%) (Auto) 1 % (0-3) 1 % (0-3) Neutrophils # (Auto) 4.7 x10^3uL (1.8-7.7) 5.0 x10^3uL (1.8-7.7) Lymphocytes # (Auto) 0.6 x10^3/uL (1.0-4.8) 0.8 x10^3/uL (1.0-4.8) Monocytes # (Auto) 0.5 x10^3/uL (0.0-1.1) 0.7 x10^3/uL (0.0-1.1) Eosinophils # (Auto) 0.1 x10^3/uL (0.0-0.7) 0.1 x10^3/uL (0.0-0.7) Basophils # (Auto) 0.0 x10^3/uL (0.0-0.2) 0.1 x10^3/uL (0.0-0.2) Sodium Level 142 mmol/L (136-145) Potassium Level 3.8 mmol/L (3.5-5.1) Chloride Level 106 mmol/L (98-107) Carbon Dioxide Level 28 mmol/L (21-32) Anion Gap 8 (6-14) Blood Urea Nitrogen 16 mg/dL (8-26) Creatinine 0.6 mg/dL (0.7-1.3) Estimated GFR (Cockcroft-Gault) 138.4 BUN/Creatinine Ratio 27 (6-20) Glucose Level 195 mg/dL (70-99) Calcium Level 7.6 mg/dL (8.5-10.1) Phosphorus Level 3.8 mg/dL (2.6-4.7) Magnesium Level 1.3 mg/dL (1.8-2.4) Total Bilirubin 2.3 mg/dL (0.2-1.0) Aspartate Amino Transf (AST/SGOT) 41 U/L (15-37) Alanine Aminotransferase (ALT/SGPT) 44 U/L (16-63) Alkaline Phosphatase 256 U/L (46-116) Total Protein 4.3 g/dL (6.4-8.2) Albumin 1.5 g/dL (3.4-5.0) Albumin/Globulin Ratio 0.5 (1.0-1.7) Test 12/23/18 08:35 O2 Saturation 95 % (92-99) Arterial Blood pH 7.52 (7.35-7.45) Arterial Blood pCO2 at Patient Temp 31 mmHg (35-46) Arterial Blood pO2 at Patient Temp 79 mmHg (75-108) Arterial Blood HCO3 25 mmol/L (21-28) Arterial Blood Base Excess 2 mmol/L (-3-3) FiO2 50 Medications Active Scripts Medications Dose Route/Sig Max Daily Dose Days Date Category Trophamine (Amino Acids 10 %) 500 Ml Iv.soln 500 Ml IV DAILY 199912/21/18 Reported Duoneb 0.5-3(2.5) Mg/3 Ml (Albuterol/Ipratropium) 3 Ml Ampul.neb 3 Ml NEB BID 12/21/18 Reported Dulcolax (Bisacodyl) 10 Mg Supp.rect 10 Mg RC PRN DAILY PRN 12/21/18 Reported Duoneb 0.5-3(2.5) Mg/3 Ml (Albuterol/Ipratropium) 3 Ml Ampul.neb 3 Ml NEB PRN Q4HRS PRN 12/21/18 Reported Atorvastatin Calcium 40 Mg Tablet 1 Tab PO QHS 12/21/18 Reported Simethicone 80 Mg Tab.chew 80 Mg PO PRN TID PRN 12/21/18 Reported Humalog (Insulin Lispro) 100 Unit/1 Ml Vial 0 SQ Q6HRS 12/21/18 Reported Ondansetron Hcl 4 Mg/2 Ml Vial (Ondansetron Hcl/Pf) 4 Mg/2 Ml Vial 4 Mg IJ PRN Q6HRS PRN 12/21/18 Reported Actos (Pioglitazone Hcl) 15 Mg Tablet 1 Tab PO DAILY 12/21/18 Reported Tylenol Extra Strength (Acetaminophen) 500 Mg Tablet 1,000 Mg PO PRN Q6HRS PRN 12/21/18 Reported Senokot-S Tablet (Sennosides/Docusate Sodium) 1 Each Tablet 1 Tab PO BID 12/21/18 Reported Vitamin D3 (Cholecalciferol (Vitamin D3)) 1,000 Unit Tablet 1 Tab PO DAILY 12/21/18 Reported Carvedilol (Carvedilol) 12.5 Mg Tablet 12.5 Mg PO BIDWMEALS 12/21/18 Reported Impression . EXPECTED RESP FAILURE S/P SURGERY SEPSIS ACUTE BLOOD LOSS ANEMIA ETOH MALNUTRITION Plan . AC MODE TRANFUSE IV ANTIBX START TPN WILL NEED SEVERAL MORE DAYS ON VENT D/W NALINI BATES MD Dec 23, 2018 10:08
--- NOTE | 2018-12-23 10:18 | NUR ---
Dr. Niels Inman notified of consult.
--- NOTE | 2018-12-23 10:28 | PDOC2 ---
CARDIAC CONSULT DATE OF CONSULT Date of Consult DATE: 12/23/18 TIME: 10:14 REASON FOR CONSULT Reason for Consult: Cardiac history REFERRING PHYSICIAN Referring Physician: Dr. Cha SOURCE Source: Chart review HISTORY OF PRESENT ILLNESS HISTORY OF PRESENT ILLNESS This is a 58 yo male, with a history of CAD s/p CABG, hypertension, hyperlipidemia, AFIB, and DM, who presented from [facility] secondary to severe necrotizing pancreatitis. Was diagnosed at [facility] last month. Treated with conservative management and transferred to [facility] for ongoing care. Has been unable to eat. Imagining notable for ongoing large pancreatic pseudocyst with obstruction of the stomach. Patient brought to [facility] for pancreatic pseudocystgastrostomy with cholecystectomy. Patient hypotensive during surgery. Treated with pressors and IVFs. Remains intubated. HPI obtained from chart review as family are not present. PAST MEDICAL HISTORY Cardiovascular: AFIB, CAD, HTN, Hyperlipidemia Pulmonary: No pertinent hx GI: Other (pancreatitis ) Hepatobiliary: Cholelithiasis, Other (pancreatitis ) Psych: No pertinent hx Rheumatologic: No pertinent hx Infectious disease: No pertinent hx ENT: No pertinent hx Renal/: No pertinent hx Endocrine: Diabetes Dermatology: No pertinent hx PAST SURGICAL HISTORY Past Surgical History: CABG FAMILY HISTORY Family History: Family History Unknown SOCIAL HISTORY ALCOHOL: none (recent, h/o heavy ETOH years ago) Drugs: None Lives: [facility] CURRENT MEDICATIONS CURRENT MEDICATIONS Current Medications Medications (Trade) Dose Ordered Sig/Nicola Route PRN Reason Start Time Stop Time Status Last Admin Dose Admin Metronidazole 100 ml @ 100 mls/hr Q12HR IV 12/22/18 21:00 12/23/18 09:32 Cefazolin Sodium/ Dextrose 50 ml @ 100 mls/hr Q8H IV 12/22/18 20:00 12/23/18 03:36 Enoxaparin Sodium (Lovenox 40mg Syringe) 40 mg Q24H SQ 12/23/18 09:00 12/23/18 09:28 Ringer's Solution 1,000 ml @ 100 mls/hr Q10H IV 12/22/18 16:00 12/23/18 03:38 Sodium Chloride 1,000 ml @ 25 mls/hr Q24H IV 12/22/18 16:00 12/22/18 16:00 Morphine Sulfate 30 ml @ 0 mls/hr CONT PRN PRN IV PER PROTOCOL 12/22/18 14:45 12/22/18 18:22 DC 12/22/18 17:50 Chlorhexidine Gluconate (Peridex) 15 ml BID MM 12/22/18 21:00 12/23/18 09:28 Midazolam HCl 100 ml @ 0 mls/hr CONT PRN IV SEE PROTOCOL 12/22/18 15:30 12/23/18 03:37 Dopamine HCl/ Dextrose 250 ml @ 8.686 mls/ hr CONT PRN IV SEE I/O RECORD 12/22/18 17:45 12/23/18 03:37 Magnesium Sulfate 50 ml @ 25 mls/hr Q2H IV 12/23/18 09:15 12/23/18 13:14 12/23/18 09:47 Albumin Human 100 ml @ 100 mls/hr 1X ONCE IV 12/23/18 09:15 12/23/18 10:14 DC 12/23/18 09:48 ALLERGIES ALLERGIES: Coded Allergies: No Known Drug Allergies (Unverified , 12/22/18) ROS Review of System 14 point ROS conducted with pertinent positives noted above in HPI. PHYSICAL EXAM General: Other (sedated) HEENT: Atraumatic, Mucous membr. moist/pink Lungs: Clear to auscultation, Other (intubated) Heart: Regular rate, Normal S1, Normal S2, Other (distant heart tones) Extremities: Other (anasarca) Skin: No significant lesion Neuro: Other (unable to assess) Psych/Mental Status: Other (sedated) MUSCULOSKELETAL: No deformity VITALS VITALS Vital Signs Date Time Temp Pulse Resp B/P (MAP) Pulse Ox O2 Delivery O2 Flow Rate FiO2 12/23/18 10:06 95 Ventilator 12/23/18 09:00 85 20 108/50 (69) 12/23/18 08:00 99.3 99.3 12/22/18 10:52 3 LABS Lab: Laboratory Tests Test 12/22/18 10:42 12/22/18 15:30 12/22/18 20:05 12/23/18 06:00 Glucose (Fingerstick) 120 mg/dL (70-99) Arterial Blood pH 7.45 (7.35-7.45) Arterial Blood pCO2 at Patient Temp 38 mmHg (35-46) Arterial Blood pO2 at Patient Temp 84 mmHg (75-108) Arterial Blood HCO3 26 mmol/L (21-28) Arterial Blood Base Excess 2 mmol/L (-3-3) FiO2 60 White Blood Count 5.9 x10^3/uL (4.0-11.0) 6.6 x10^3/uL (4.0-11.0) Red Blood Count 2.79 x10^6/uL (4.30-5.70) 3.04 x10^6/uL (4.30-5.70) Hemoglobin 7.0 g/dL (13.0-17.5) 7.5 g/dL (13.0-17.5) Hematocrit 22.1 % (39.0-53.0) 24.1 % (39.0-53.0) Mean Corpuscular Volume 80 fL (79-100) 79 fL (79-100) Mean Corpuscular Hemoglobin 25 pg (25-35) 25 pg (25-35) Mean Corpuscular Hemoglobin Concent 31 g/dL (31-37) 31 g/dL (31-37) Red Cell Distribution Width 19.4 % (11.5-14.5) 18.8 % (11.5-14.5) Platelet Count 203 x10^3/uL (140-400) 217 x10^3/uL (140-400) Neutrophils (%) (Auto) 80 % (31-73) 75 % (31-73) Lymphocytes (%) (Auto) 10 % (24-48) 12 % (24-48) Monocytes (%) (Auto) 9 % (0-9) 11 % (0-9) Eosinophils (%) (Auto) 1 % (0-3) 1 % (0-3) Basophils (%) (Auto) 1 % (0-3) 1 % (0-3) Neutrophils # (Auto) 4.7 x10^3uL (1.8-7.7) 5.0 x10^3uL (1.8-7.7) Lymphocytes # (Auto) 0.6 x10^3/uL (1.0-4.8) 0.8 x10^3/uL (1.0-4.8) Monocytes # (Auto) 0.5 x10^3/uL (0.0-1.1) 0.7 x10^3/uL (0.0-1.1) Eosinophils # (Auto) 0.1 x10^3/uL (0.0-0.7) 0.1 x10^3/uL (0.0-0.7) Basophils # (Auto) 0.0 x10^3/uL (0.0-0.2) 0.1 x10^3/uL (0.0-0.2) Sodium Level 142 mmol/L (136-145) Potassium Level 3.8 mmol/L (3.5-5.1) Chloride Level 106 mmol/L (98-107) Carbon Dioxide Level 28 mmol/L (21-32) Anion Gap 8 (6-14) Blood Urea Nitrogen 16 mg/dL (8-26) Creatinine 0.6 mg/dL (0.7-1.3) Estimated GFR (Cockcroft-Gault) 138.4 BUN/Creatinine Ratio 27 (6-20) Glucose Level 195 mg/dL (70-99) Calcium Level 7.6 mg/dL (8.5-10.1) Phosphorus Level 3.8 mg/dL (2.6-4.7) Magnesium Level 1.3 mg/dL (1.8-2.4) Total Bilirubin 2.3 mg/dL (0.2-1.0) Aspartate Amino Transf (AST/SGOT) 41 U/L (15-37) Alanine Aminotransferase (ALT/SGPT) 44 U/L (16-63) Alkaline Phosphatase 256 U/L (46-116) Total Protein 4.3 g/dL (6.4-8.2) Albumin 1.5 g/dL (3.4-5.0) Albumin/Globulin Ratio 0.5 (1.0-1.7) Test 12/23/18 08:35 O2 Saturation 95 % (92-99) Arterial Blood pH 7.52 (7.35-7.45) Arterial Blood pCO2 at Patient Temp 31 mmHg (35-46) Arterial Blood pO2 at Patient Temp 79 mmHg (75-108) Arterial Blood HCO3 25 mmol/L (21-28) Arterial Blood Base Excess 2 mmol/L (-3-3) FiO2 50 ASSESSMENT/PLAN ASSESSMENT/PLAN 1. Pancreatic pseudocyst with obstruction of the stomach; s/p pancreatic pseudocystgastrostomy with cholecystectomy and G-tube placement 2. Acute respiratory failure s/p intubation 3. CAD s/p previous CABG and PCI/stent 4. Hypertension with present hypotension. Requiring pressor support 5. Anemia, post-op. s/p 1 unit PRBCs 6. Hypomagnesemia; replacement ongoing 7. Hyperlipidemia 8. AFIB; maintaining SR 9. Diabetes, II 10. Anasarca; albumin, Lasix Recommendations Echo to assess LV systolic function ASA when okay with surgical team Obtain prior cardiac records. Monitor lytes, replace as warranted Pressor support as warranted Supportive care ANN BRIGGS APRN Dec 23, 2018 10:28
--- NOTE | 2018-12-23 10:33 | NUR ---
SS following for discharge planning. SS received notification that pt was from [facility]. SS received phone contact from [facility], ; fax [phone], verifying that pt was from there facility and was able to return when medically stable for transfer. Pt's RN notified.
[2018-12-23 10:43] LABS: HDLC 11 mg/dL (40-60); TRIGLYCERIDES 46 mg/dL (0-150); VLDLC 9 mg/dL (0-40)
[2018-12-23 11:05] LABS: CHOLESTEROL < 50 mg/dL (0-200); LDLC 30 mg/dL (0-100)
--- NOTE | 2018-12-23 11:05 | CONS ---
DATE OF CONSULTATION: ADMITTING PHYSICIAN: Dr. Cook. HISTORY OF PRESENT ILLNESS: This 58-year-old male who was initially admitted to [facility] on 11/09/2018 because of severe acute pancreatitis that was necrotic. It continued to get worse and because of that, the patient was transferred to [facility] where I continue to see him and manage his care. Consultation was obtained with Dr. Cook and Dr. Giraldo for GI evaluation and management. During the stay in the hospital, the patient had CT scans almost on a weekly basis and initially they showed that the pancreatitis continued to get worse and had 1 pseudocyst that was getting larger and then several small pseudocysts. Pseudocyst was very large, and the patient could not eat and had nausea and required TPN throughout the stay at [facility]. It was felt that the patient will need surgery for the pseudocyst in the gallbladder, but he needed his pancreas to stabilize, and the last CT scan did not show any increase in the size of the pseudocyst and inflammation in the pancreas was stable, and pancreatic enzymes were also trending down, and the warren of the pseudocysts matures after 6 weeks from the initial episode. Dr. Cook felt it appropriate to go ahead and proceed with surgery. The patient was admitted for surgery yesterday, but during the surgery, it was noted that the gallbladder was quite necrotic, and the patient had about 1 liter of blood loss and 2 liters of fluid that was removed from the large pseudocyst. The patient underwent open pancreatic pseudocyst gastrostomy and open cholecystectomy and a G-tube placement. Subsequently, the patient was admitted to ICU. He remains on the ventilator, and he became hypotensive and is on about 6 mcg of dopamine to maintain his systolic blood pressure. He is also retaining a lot of fluid. At present time, the patient is sedated, and I am unable to do systems review. Consultation has been obtained for medical management. During the stay at [facility], the patient remained on TPN and required fingersticks every 6 hours and had about 65-70 units of regular insulin in the TPN. SYSTEMS REVIEW: Unable to do as the patient is sedated on mechanical ventilation. PAST MEDICAL HISTORY: As noted earlier, the patient has had acute pancreatitis that is necrotic with a large pseudocyst and multiple small pseudocysts. He has a history of coronary artery disease, atrial fibrillation, hyperlipidemia, diabetes mellitus and hypertension. He has had diabetes mellitus since 2005. During the stay at [facility], the patient also had electrolyte imbalance, fluid retention, acute metabolic encephalopathy, fall with trauma to the face and head and a nasal fracture. 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 Acute metabolic encephalopathy, severe protein-calorie malnutrition, physical deconditioning and fluid retention. PAST SURGICAL HISTORY: The patient had CABG x 5. SOCIAL HISTORY: The patient drinks alcohol on the weekends mostly, but none for 3 weeks prior to his admission at [facility]. The patient is a former smoker. No history available for drug abuse. FAMILY HISTORY: No history of diabetes or hypertension in the family. MEDICATIONS: Reviewed. ALLERGIES: None known any. PHYSICAL EXAMINATION: VITAL SIGNS: Temperature maximum was 99.7, pulse 86 per minute, respirations 20 per minute on mechanical ventilation. Blood pressure 116/47 mmHg, on dopamine drip. He is also on Versed drip: GENERAL: The patient is sedated on mechanical ventilation. Tracheostomy tube in place, eyes closed. HEENT: Partial exam. No other changes. LUNGS: Decreased breath sounds at bases. CARDIOVASCULAR: S1, S2 regular. ABDOMEN: The patient is status post surgery with dressing in place. Bowel sounds hyperactive. EXTREMITIES: 3-4+ edema. The patient also has anasarca. CENTRAL NERVOUS SYSTEM: Sedated. LABORATORY DATA: WBC count today is 6.6, hemoglobin is 7.5, polys 75, lymphocytes 12. Sodium 142, potassium 3.8, BUN 16, creatinine 0.6, glucose 195. Magnesium is 1.3, calcium 7.6, total bilirubin 2.3, AST 41, ALT 44, alkaline phosphatase 256, total protein 4.3, albumin 1.5. Chest x-ray shows slight worsening of the left basilar opacity with some moderate size pleural effusion and underlying atelectasis, infiltrate. IMPRESSION: 1. Acute respiratory failure. 2. Acute hypotension, on dopamine. The patient's urine output is stable, but the patient has a significant fluid retention due to third spacing. 3. Acute pancreatitis with pseudocyst. 4. Systolic congestive heart failure. 5. Coronary artery disease, history of coronary artery bypass graft x 5. 6. Acute metabolic encephalopathy. 7. History of fall with nasal fracture. 8. History of atrial fibrillation. 9. Hyperlipidemia. 10. Severe protein-calorie malnutrition. 11. Anemia. 12. Obesity hypoventilation syndrome, with likely obstructive sleep apnea, has been on BiPAP at night. PLAN: The patient is retaining significant amount of fluids, so I will give him 1 amp of 25% albumin along with 1 unit of packed red cells as well as Lasix. Continue IV dopamine to maintain systolic blood pressure. Monitor urine output. I ordered 1 unit of packed red cells because of significant blood loss yesterday along with significant hypotension with his coronary artery disease, congestive heart failure and third spacing due to hypotension even though his hemoglobin is 7.5. We will consult Dr. Moralez for cardiology evaluation and management, Dr. Cornejo for infectious disease evaluation and management and Dr. Romero has been consulted for pulmonary evaluation and management. Continue management of the mechanical ventilation. Continue to hold some of the previous medications. We will start TPN this evening and continue to monitor blood sugars every 6 hours and regular insulin to TPN and also start him on IV Protonix. Prognosis of this patient is very poor. For details, please refer to the orders. I will also consult Dr. Giraldo for GI evaluation and management. Dr. Cook thank you very much for letting me participate in the care of this patient. REHANA CASE MD DR: ANNA/rosales JOB#: [id number] / [id number]
--- NOTE | 2018-12-23 11:16 | PDOC2 ---
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 Recent hospitalization @ [facility], then transfer to [facility] (where was NPO on TPN), and now s/p pancreatic pseudocystgastrostomy, cholecystectomy, and G-tube placement by Dr. Cook on 12/22/18. Currently intubated and sedated in ICU w/ some hypotension. Long h/o heartburn/acid reflux. No h/o dysphagia, GI bleeding, or irregular bowel habits. Previously reported several previous EGDs w/o significant findings and colonoscopy ~5 years ago (?at the [place]) which was unremarkable. Diverticulosis noted on CT scans at [facility]. No liver or PUD history. H/o HLD ( normal triglycerides at [facility]). PMH: PMH: A Fib, CAD s/ stent, HLD, DM, pancreatitis, GERD, diverticulosis, CABG FH: Family History: No pertinent hx (no pancreatitis) Social History: Smoke: No ALCOHOL: heavy (long ago in the , but no heavy use for many years) ROS: Unable to obtain. Vitals: Vitals: Vital Signs Date Time Temp Pulse Resp B/P (MAP) Pulse Ox O2 Delivery O2 Flow Rate FiO2 12/23/18 10:06 95 Ventilator 12/23/18 09:00 85 20 108/50 (69) 12/23/18 08:00 99.3 99.3 12/22/18 10:52 3 Labs: Labs: Laboratory Tests Test 12/22/18 15:30 12/22/18 20:05 12/23/18 06:00 12/23/18 08:35 O2 Saturation % (92-99) 95 % (92-99) Arterial Blood pH 7.45 (7.35-7.45) 7.52 (7.35-7.45) Arterial Blood pCO2 at Patient Temp 38 mmHg (35-46) 31 mmHg (35-46) Arterial Blood pO2 at Patient Temp 84 mmHg (75-108) 79 mmHg (75-108) Arterial Blood HCO3 26 mmol/L (21-28) 25 mmol/L (21-28) Arterial Blood Base Excess 2 mmol/L (-3-3) 2 mmol/L (-3-3) FiO2 60 50 White Blood Count 5.9 x10^3/uL (4.0-11.0) 6.6 x10^3/uL (4.0-11.0) Red Blood Count 2.79 x10^6/uL (4.30-5.70) 3.04 x10^6/uL (4.30-5.70) Hemoglobin 7.0 g/dL (13.0-17.5) 7.5 g/dL (13.0-17.5) Hematocrit 22.1 % (39.0-53.0) 24.1 % (39.0-53.0) Mean Corpuscular Volume 80 fL (79-100) 79 fL (79-100) Mean Corpuscular Hemoglobin 25 pg (25-35) 25 pg (25-35) Mean Corpuscular Hemoglobin Concent 31 g/dL (31-37) 31 g/dL (31-37) Red Cell Distribution Width 19.4 % (11.5-14.5) 18.8 % (11.5-14.5) Platelet Count 203 x10^3/uL (140-400) 217 x10^3/uL (140-400) Neutrophils (%) (Auto) 80 % (31-73) 75 % (31-73) Lymphocytes (%) (Auto) 10 % (24-48) 12 % (24-48) Monocytes (%) (Auto) 9 % (0-9) 11 % (0-9) Eosinophils (%) (Auto) 1 % (0-3) 1 % (0-3) Basophils (%) (Auto) 1 % (0-3) 1 % (0-3) Neutrophils # (Auto) 4.7 x10^3uL (1.8-7.7) 5.0 x10^3uL (1.8-7.7) Lymphocytes # (Auto) 0.6 x10^3/uL (1.0-4.8) 0.8 x10^3/uL (1.0-4.8) Monocytes # (Auto) 0.5 x10^3/uL (0.0-1.1) 0.7 x10^3/uL (0.0-1.1) Eosinophils # (Auto) 0.1 x10^3/uL (0.0-0.7) 0.1 x10^3/uL (0.0-0.7) Basophils # (Auto) 0.0 x10^3/uL (0.0-0.2) 0.1 x10^3/uL (0.0-0.2) Sodium Level 142 mmol/L (136-145) Potassium Level 3.8 mmol/L (3.5-5.1) Chloride Level 106 mmol/L (98-107) Carbon Dioxide Level 28 mmol/L (21-32) Anion Gap 8 (6-14) Blood Urea Nitrogen 16 mg/dL (8-26) Creatinine 0.6 mg/dL (0.7-1.3) Estimated GFR (Cockcroft-Gault) 138.4 BUN/Creatinine Ratio 27 (6-20) Glucose Level 195 mg/dL (70-99) Calcium Level 7.6 mg/dL (8.5-10.1) Phosphorus Level 3.8 mg/dL (2.6-4.7) Magnesium Level 1.3 mg/dL (1.8-2.4) Total Bilirubin 2.3 mg/dL (0.2-1.0) Aspartate Amino Transf (AST/SGOT) 41 U/L (15-37) Alanine Aminotransferase (ALT/SGPT) 44 U/L (16-63) Alkaline Phosphatase 256 U/L (46-116) Total Protein 4.3 g/dL (6.4-8.2) Albumin 1.5 g/dL (3.4-5.0) Albumin/Globulin Ratio 0.5 (1.0-1.7) Allergies: Coded Allergies: No Known Drug Allergies (Unverified , 12/22/18) Medications: Current Medications Medications (Trade) Dose Ordered Sig/Nicola Route PRN Reason Start Time Stop Time Status Last Admin Dose Admin Metronidazole 100 ml @ 100 mls/hr Q12HR IV 12/22/18 21:00 12/23/18 09:32 Cefazolin Sodium/ Dextrose 50 ml @ 100 mls/hr Q8H IV 12/22/18 20:00 12/23/18 03:36 Enoxaparin Sodium (Lovenox 40mg Syringe) 40 mg Q24H SQ 12/23/18 09:00 12/23/18 09:28 Ringer's Solution 1,000 ml @ 100 mls/hr Q10H IV 12/22/18 16:00 12/23/18 03:38 Sodium Chloride 1,000 ml @ 25 mls/hr Q24H IV 12/22/18 16:00 12/22/18 16:00 Morphine Sulfate 30 ml @ 0 mls/hr CONT PRN PRN IV PER PROTOCOL 12/22/18 14:45 12/22/18 18:22 DC 12/22/18 17:50 Chlorhexidine Gluconate (Peridex) 15 ml BID MM 12/22/18 21:00 12/23/18 09:28 Midazolam HCl 100 ml @ 0 mls/hr CONT PRN IV SEE PROTOCOL 12/22/18 15:30 12/23/18 03:37 Dopamine HCl/ Dextrose 250 ml @ 8.686 mls/ hr CONT PRN IV SEE I/O RECORD 12/22/18 17:45 12/23/18 03:37 Magnesium Sulfate 50 ml @ 25 mls/hr Q2H IV 12/23/18 09:15 12/23/18 13:14 12/23/18 09:47 Albumin Human 100 ml @ 100 mls/hr 1X ONCE IV 12/23/18 09:15 12/23/18 10:14 DC 12/23/18 09:48 Imaging: Imaging: CXR 12/23 IMPRESSION: 1. Stable tube positions. 2. Slight worsening of the left basilar opacity compatible with a moderate sized pleural effusion and underlying atelectasis/infiltrate. PE: GEN: intubated HEENT: Atraumatic LUNGS: vent HEART: RRR ABD: quiet, MISTY drain and G-tube EXTREMITY: No edema SKIN: tattoos NEURO/PSYCH: sedated A/P: A/P: S/p pancreatic pseudocystgastrostomy, cholecystectomy, and G-tube placement H/o necrotizing pancreatitis - ?related to saxagliptin w/ h/o heavy alcohol use years ago Resp failure, hypotension, anemia, abnormal LFTs GERD - on PPI, reportedly unrevealing EGDs in the past CRC screen - UTD Diverticulosis - on past imaging -- Continue support, will review w/ Dr. Giraldo. KALEE ULLOA Dec 23, 2018 11:16
[2018-12-23] MEDS: INSULIN LISPRO 300 UNITS/3 ML INSULN.PEN. SQ SCH ×3 (12:00→23:56)
[2018-12-23] MEDS: PANTOPRAZOLE IV PUSH 40 MG VIAL. IVP SCH (12:09)
[2018-12-23] MEDS: TPN PER PHARMACY MC PRN (12:55)
--- NOTE | 2018-12-23 16:00 | CARD ---
MR#: [id number] Date of Study: 12/23/2018 Ordering Physician: ANN BRIGGS, Referring Physician: GOMEZ BRADLEY, Tech: Roslyn Mcconnell APPROVED REPORT EXAM: Two-dimensional and M-mode echocardiogram with Doppler and color Doppler. Other Information Quality : AverageHR: 84bpm INDICATION Pre-Op 2D DIMENSIONS RVDd3.6 (2.9-3.5cm)Left Atrium(2D)4.1 (1.6-4.0cm) IVSd1.3 (0.7-1.1cm)Aortic Root(2D)3.8 (2.0-3.7cm) LVDd5.8 (3.9-5.9cm)LVOT Diameter2.6 (1.8-2.4cm) PWd1.2 (0.7-1.1cm)LVDs3.9 (2.5-4.0cm) FS (%) 32.5 %SV101.9 ml LVEF(%)60.1 (>50%) Aortic Valve AoV Peak Robinson.184.5cm/sAoV VTI29.8cm AO Peak GR.13.6mmHgLVOT VTI 24.38cm AO Mean GR.7mmHg Mitral Valve MV E Oeitygct698.1cm/sMV DECEL FIAN469cd MV A Jcdwcpqm82.3cm/sE/A Ratio1.8 TDI Lateral E' P. V8.56cm/sMedial E' P. V6.95cm/s E/Lateral E'13.2E/Medial E'16.3 Tricuspid Valve TR P. Jemyeffv287pf/sRAP MSOVDZVJ59jeOc TR Peak Gr.64byTsPJCG78lzPi Pulmonary Vein S1 Jbyesuni67.1cm/sS2 Czluqikq44.83cm/s D2 Rsbpuzmy87.8cm/sPVa jkqvdcla50irkg LEFT VENTRICLE The left ventricle is normal size. There is mild to moderate concentric left ventricular hypertrophy. The left ventricular systolic function is normal. The Ejection Fraction is 60%. There is normal LV s egmental wall motion. Transmitral Doppler flow pattern is Grade II-pseudonormal filling dynamics. RIGHT VENTRICLE The right ventricle is normal size. There is normal right ventricular wall thickness. The right ventr icular systolic function is normal. ATRIA The left atrium size is normal. The right atrium is borderline dilated. The interatrial septum is int act with no evidence for an atrial septal defect or patent foramen ovale as noted on 2-D or Doppler i maging. AORTIC VALVE The aortic valve is normal in structure and function. Doppler and Color Flow revealed no significant aortic regurgitation. There is no significant aortic valvular stenosis. MITRAL VALVE The mitral valve is thickened but opens well. There is no evidence of mitral valve prolapse. There is no mitral valve stenosis. Doppler and Color Flow revealed no mitral valve regurgitation noted. TRICUSPID VALVE The tricuspid valve is normal in structure and function. Doppler and Color Flow revealed trace tricus pid regurgitation with an estimated PAP of 42 Doppler and Color Flow revealed mild pulmonary hyperten nga. mmHg. There is no tricuspid valve prolapse or vegetation. There is no tricuspid valve stenosis. PULMONIC VALVE The pulmonic valve is not well visualized. Doppler and Color Flow revealed no pulmonic valvular regur gitation. GREAT VESSELS The aortic root is normal in size. The IVC is dilated and collapses <50% with inspiration. PERICARDIAL EFFUSION There is no evidence of significant pericardial effusion. Critical Notification Critical Value: No <Conclusion> The left ventricular systolic function is normal. The Ejection Fraction is 60%. There is normal LV segmental wall motion. Trace tricuspid regurgitation with an estimated PAP of 42 There is no evidence of significant pericardial effusion. Signed by : Keven Roberts, Electronically Approved : 12/23/2018 16:00:12
[2018-12-23] MEDS: MORPHINE SULFATE/PF 30 ML IV PRN (16:50)
[2018-12-23] MEDS: IV NORMAL SALINE 1000ML BAG 1,000 ML IV SCH (16:51)
--- NOTE | 2018-12-23 17:09 | PATHOLOGY ---
[facility] Accession Number: [id number] . 01 Material submitted: . PART A: CYST WALL PART B: PSEUDO CYST DEBRIS PART C: GALLBLADDER . 02 Diagnosis: A. Segment of stomach and attached fibroadipose tissue, designated "cyst wall": - Pseudocyst wall densely adherent to gastric serosa, and showing focal fat necrosis. - Congestion and slight chronic inflammation of gastric mucosa. . B. Pseudocyst contents: - Fat necrosis with focal hemorrhage and calcification. . C. Gallbladder and focal attached liver tissue, open cholecystectomy: - Acute hemorrhagic/necrotizing and chronic cholecystitis. LBQ/12/23/2018 . 02 Comment: There is no evidence of malignancy. (JPM/db; 12/23/2018) . 02 Electronically signed: . Blaise Garcia MD, Pathologist NPI- [id number] . 01 Gross description: . A. The specimen is received in formalin, labeled "Prater, Eddi, cyst wall, pancreatic", is a roughly dome-shaped, rubbery tissue measuring 3.0 x 1.8 x 1.0 cm. The mucosal surface is stauffer-pink and smooth. The resection margin is irregular and inked black. The specimen is serially sectioned to reveal a 1.5 x 1.0 x 0.7 cm carlos-white, firm, well demarcated nodule. The specimen is entirely submitted as follows: . A1-A2. Nodule A3. Remaining tissue . B. The specimen is received in formalin, labeled "Prater, Eddi, pseudocyst debris", are multiple chalky white to dark brown-black necrotic fragments measuring 6.0 x 5.2 x 1.2 cm in aggregate. Wrapping Machine Tender tissue is submitted in B1-B2. . C. The specimen is received in formalin, labeled "Prater, Eddi, gallbladder", is an enlarged, disrupted gallbladder measuring 8.5 x 6.0 cm with an average 0.54 cm wall. The serosa is diffusely hemorrhagic. There is a linear staple line measuring 8.0 cm in length. The gallbladder is open adjacent to this yellow-green membrane within the lumen. The mucosal lining is trabeculated and hemorrhagic/necrotic. The cystic duct is not identified. No calculi are present within the lumen container. Wrapping Machine Tender tissue is submitted in C1-C3 (C1 = possible mucosa) ([facility]; 12/22/2018) SHS/SHS . 02 Pathologist provided ICD-10: K29.50, K81.1, K31.89, M79.89 . 02 CPT . 858591, [id number], 612353 Specimen Comment: A courtesy copy of this report has been sent to Specimen Comment: [phone]. Specimen Comment: Report sent to Performed at: 01 [facility] [address], [place] [id number] MD Deandre Austin MD Phone: [phone] Performed at: 02 [facility] [address] [place], [place] [id number] MD Blaise Garcia MD Phone: [phone]
[2018-12-23] MEDS: PIPERACILLIN/TAZOBACTAM 3.375 GM in IV NORMAL SALINE 50ML 50 ML IV SCH ×2 (17:38→23:55)
[2018-12-23] MEDS ORDERED: DEXTROSE 70% IV SCH ×11 (22:00)
[2018-12-23] MEDS ORDERED: AMINO ACID IV SCH ×11 (22:00)
[2018-12-23] MEDS ORDERED: TOTAL PARENTERAL NUTRITION IV SCH ×11 (22:00)
[2018-12-23] MEDS ORDERED: [UNRECOGNIZED DRUG - OTHER] IV SCH ×11 (22:00)
[2018-12-24] VITALS (27 sets, daily range): BP systolic 105–181; BP diastolic 41–64
--- NOTE | 2018-12-24 01:44 | CONS ---
DATE OF CONSULTATION: 12/23/2018 REFERRING PHYSICIAN: María Cha M.D. REASON FOR CONSULTATION: Antibiotic management for cholecystitis. HISTORY OF PRESENT ILLNESS: A 58-year-old male who is currently in ICU at [facility] after being discharged from [facility] on 11/09/2018 with abdominal pain and weakness, going on for 3 weeks prior to admission. The patient is intubated, unable to give history. History obtained from the chart and from staff. He was diagnosed with severe necrotizing pancreatitis, ETOH induced at [facility]. He was managed conservatively with gradual improvement. He was transferred to [facility] as he remained on TPN and for continued management. The patient was unable to eat. Repeat imaging shows large pancreatic pseudocyst, which was persistent and stable with obstruction of the stomach. GI was also following. General Surgery was following. Given the above finding, the patient underwent laparoscopic converted to open pancreatic pseudocyst gastrostomy, open cholecystectomy and G-tube placement on 12/22/2018 with findings of severe cholecystitis with obliteration of surgical plans, large pancreatic pseudocyst with stomach impingement, gallbladder pseudocyst wall debridement material and fluid and cultures and cytology was done. The patient was started on cefazolin postoperatively. I am not sure what he was preoperatively for antibiotics and records from [facility] are pending at this time. The patient was intubated postoperatively and is transferred to ICU on 12/22/2018. Infectious Disease has been consulted for antibiotic management. Today, the patient is on pressor support, dopamine 4 mcg. He remains afebrile. WBC 6.6 and hemoglobin is 7.5. He is receiving packed RBC transfusion at this time. The patient has a right central line placed and also has a right upper extremity PICC line in place. PAST MEDICAL HISTORY: Atrial fibrillation, coronary artery disease, hyperlipidemia, diabetes and status post CABG. SOCIAL HISTORY: History of heavy alcohol dependence. No smoking. FAMILY HISTORY: As per HPI. CURRENT MEDICATIONS: Cefazolin. OTHER MEDICATIONS: Reviewed in medication list. ALLERGIES: No known drug allergies. PHYSICAL EXAMINATION: VITAL SIGNS: T-max 99.7, current temperature 99.2, pulse 84, respiration rate 18, blood pressure 108/46 and oxygen saturation 95% on 50% FiO2. GENERAL: Intubated, sedated and does arouse to painful stimuli, lying comfortably. HEENT: ETT and OGT in place. Anicteric. NECK: Supple. LUNGS: Decreased breath sounds at the bases. Few crackles. HEART: S1 and S2. No gallops or murmurs. ABDOMEN: Obese. Bowel sounds present. G-drain in place. MISTY drain in place. Dressing present intact and dry. somewhat on deep palpation. EXTREMITIES: A 2+ pedal edema. DERMATOLOGICAL: Multiple tattoos. Warm and dry. No generalized rash. CENTRAL NERVOUS SYSTEM: Sedated and intubated. PSYCHIATRIC: Sedated and intubated. LINES: Right upper extremity PICC line looks okay. LABORATORY DATA: WBC 6.6, hemoglobin 7.5, hematocrit 24.1, platelets 217 and neutrophils 75%. Sodium 142, potassium 3.8, chloride 106, bicarbonate 28, BUN 16, creatinine 0.6 and glucose 195. Mag 1.3, total bilirubin 2.3, AST 41, ALT 44, alkaline phosphatase 256, total protein 4.3 and albumin 1.5. MICROBIOLOGY DATA: None available. DIAGNOSTICS. Chest x-ray shows slight worsening of left basilar opacity compatible with pleural effusion and underlying atelectasis/infiltrates, stable tube position. KUB on 12/22/2018 shows gastrostomy tube in place and an additional tube overlying the right upper quadrant is probably a surgical drain. The abdominal gas pattern is unremarkable. There is no evidence of retained surgical instruments, needle or radiopaque sponge on limited exam. IMPRESSION: 1. Severe cholecystitis, status post cholecystectomy, 12/22/2018. 2. Large pancreatic pseudocyst, status post open pancreatic pseudocyst gastrostomy, open cholecystectomy and gastrostomy tube placement on 12/22/2018. 3. Anemia, likely postop blood loss. 4. Acute respiratory failure postop intubated. 5. History of heavy alcohol dependence. 6. Systolic congestive heart failure. 7. Coronary artery disease, status post coronary artery bypass graft. 8. Acute metabolic encephalopathy. 9. History of fall with nasal fracture. 10. History of atrial fibrillation. 11. Severe protein-calorie malnutrition. 12. Obesity hypoventilation syndrome, likely obstructive sleep apnea, has bilevel positive airway pressure at night. RECOMMENDATIONS: 1. Discontinue cefazolin. 2. Start the patient on empiric Zosyn. 3. Follow up labs and cultures. 4. Continue supportive care. 5. Discussed with RN. Thank you for allowing me to participate in this patient's care. If you have any questions, do not hesitate to contact me. ABIGAIL COY MD DR: CHARLETTE/rosales JOB#: [id number] / [id number]
[2018-12-24] MEDS: IV RINGERS,LACTATED 1000ML 1,000 ML IV SCH ×3 (01:52→21:21)
--- NOTE | 2018-12-24 04:18 | CONS ---
DATE OF CONSULTATION: 12/23/2018 ATTENDING PHYSICIAN: Dr. Cook. REASON FOR CONSULTATION: The patient seen in pulmonary consultation at the request of Dr. Cook for vent management. HISTORY OF PRESENT ILLNESS: The patient was seen yesterday. I was unable to view his history and physical on the EMR. He was seen in the intensive care unit. He had undergone surgical intervention. He is a 58-year-old that presented to [facility] on 11/[facility]2018 with abdominal pain, weakness ongoing for 3 weeks. He was diagnosed with severe necrotizing pancreatitis. It was noted to be alcohol induced. He was initially treated with conservative management. He had slight improvement. He was treated with TPN. He was then transferred to [facility] on 11/17/2018 with continued management. He continued to have multiple bouts of pancreatitis. He had an imaging study revealing a large pancreatic pseudocyst which was persistent and stable. It was also obstructing the outflow tract of the stomach. The patient underwent surgical intervention yesterday on the . He underwent a laparoscopic which was converted to an open pancreatic pseudocyst gastrostomy, open cholecystectomy and G-tube placement. He had expected respiratory failure. I was asked to see him in consultation. At the time of my evaluation, the patient was hemodynamically stable. He was receiving IV fluids. He had received some albumin. He also received some ephedrine. He was sedated. PAST MEDICAL HISTORY: Otherwise remarkable for alcoholism and history of necrotizing pancreatitis as described above, chronic AFib, coronary artery disease, hyperlipidemia, type 2 diabetes. PAST SURGICAL HISTORY: Status post coronary artery bypass grafting. FAMILY HISTORY: Unknown. SOCIAL HISTORY: Heavy use of alcohol. It is unknown if he continues to smoke or has smoked in the past. REVIEW OF SYSTEMS: Unobtainable secondary to the patient's condition. PHYSICAL EXAMINATION: GENERAL: Once again, he was in the Intensive Care Unit on assist control ventilation. VITAL SIGNS: Noted. HEENT: Eyes, the sclerae were nonicteric. NECK: Jugular venous distention could not be assessed secondary to body habitus. CHEST: Full expansion. LUNGS: Anteriorly were clear. CARDIOVASCULAR: Regular rate and rhythm with S1, S2, no S3. ABDOMEN: Soft. Drain in place. PEG in place. Dressing in place. EXTREMITIES: No clubbing, cyanosis. Minimal edema. NEUROLOGIC: The patient was sedated. LABORATORY DATA: Arterial blood gas revealed a pH of 7.45, PaCO2 of 38, paO2 of 84. White count was noted to be normal. Hemoglobin was 7.0. Electrolytes were pending. Chest x-ray was reviewed. ET tube was in proper position. There was left basilar opacity with a small effusion. There was right infrahilar atelectasis, infiltrate. IMPRESSION: 1. Expected hypoxemic respiratory failure, status post open pancreatic pseudocyst gastrostomy, open cholecystectomy, G-tube placement. 2. History of necrotizing pancreatitis. 3. Abnormal x-ray. 4. Possible sepsis. 5. Coronary artery disease, status post coronary artery bypass grafting. 6. History of alcoholism. 7. Protein malnutrition, present upon admission. 8. Acute blood loss anemia, expected. PLAN: 1. We will continue support with assist control ventilation. 2. Transfuse per Dr. Cook. 3. Continue IV fluids, pressors for mean arterial pressure above 60. 4. DVT and GI prophylaxis. 5. Nutritional support per Dr. Cook. 6. Continue Flagyl. 7. Pain management. I do appreciate the privilege in sharing this patient's care. Total cumulative critical care time of 50 minutes. NALINI GASCA MD DR: VANE/rosales JOB#: [id number] / [id number]
[2018-12-24] MEDS: PIPERACILLIN/TAZOBACTAM 3.375 GM in IV NORMAL SALINE 50ML 50 ML IV SCH ×3 (06:28→17:58)
[2018-12-24] MEDS: INSULIN LISPRO 300 UNITS/3 ML INSULN.PEN. SQ SCH ×3 (06:31→17:36)
[2018-12-24 06:47] LABS: BASO % 1 % (0-3); EOS # 0.1 x10^3/uL (0.0-0.7); EOS % 3 % (0-3); HEMATOCRIT 21.9 % (39.0-53.0); LYMPH # 0.6 x10^3/uL (1.0-4.8); LYMPH % 13 % (24-48); MEAN CORPUSCULAR HEMOGLOBIN 26 pg (25-35); MEAN CORPUSCULAR HGB CONC 32 g/dL (31-37); MEAN CORPUSCULAR VOLUME 80 fL (79-100); MONO # 0.6 x10^3/uL (0.0-1.1); MONO % 14 % (0-9); NEUT # 3.1 x10^3uL (1.8-7.7); NEUT % 70 % (31-73); PLATELET COUNT 178 x10^3/uL (140-400); RED BLOOD COUNT 2.74 x10^6/uL (4.30-5.70); RED CELL DISTRIBUTION WIDTH 18.9 % (11.5-14.5); WHITE BLOOD COUNT 4.5 x10^3/uL (4.0-11.0)
[2018-12-24 07:16] LABS: ALBUMIN 1.4 g/dL (3.4-5.0); ALBUMIN/GLOBULIN RATIO 0.5 (1.0-1.7); CALCIUM 7.2 mg/dL (8.5-10.1); CREATININE 0.5 mg/dL (0.7-1.3); GFR 170.8; MAGNESIUM 1.6 mg/dL (1.8-2.4); PHOSPHORUS 2.4 mg/dL (2.6-4.7); TOTAL BILIRUBIN 1.5 mg/dL (0.2-1.0); TOTAL PROTEIN 4.1 g/dL (6.4-8.2)
[2018-12-24] MEDS: PANTOPRAZOLE IV PUSH 40 MG VIAL. IVP SCH (07:47)
--- NOTE | 2018-12-24 07:58 | PDOC ---
Infectious Disease Note Subjective: Subjective pt is intubated Febrile last pm Currently afebrile on dopamine awaiting PRBC ROS: ROS D/W RN Vital Signs: Vital Signs Vital Signs Date Time Temp Pulse Resp B/P (MAP) Pulse Ox O2 Delivery O2 Flow Rate FiO2 12/24/18 06:00 81 18 150/52 (84) 96 Ventilator 12/24/18 04:00 100.1 100.1 Physical Exam: PHYSICAL EXAM GENERAL: Intubated, sedated lying comfortably. HEENT: ETT and OGT in place. Anicteric. NECK: Supple. LUNGS: Decreased breath sounds at the bases. Few crackles. HEART: S1 and S2. No gallops or murmurs. ABDOMEN: Obese. Bowel sounds present. G-drain in place. MISTY drain in place. Dressing present intact and dry. rollins in place ,scrotal swelling EXTREMITIES: Gen edema. DERMATOLOGICAL: Multiple tattoos. Warm and dry. No generalized rash. CENTRAL NERVOUS SYSTEM: Sedated and intubated. PSYCHIATRIC: Sedated and intubated. LINES: Right upper extremity PICC line ( POA) looks okay.Rt IJ ( 12/22) looks clean Medications: Inpatient Meds: Current Medications Medications (Trade) Dose Ordered Sig/Nicola Start Time Stop Time Status Last Admin Dose Admin Albumin Human 100 ml @ 100 mls/hr 1X ONCE 12/23/18 09:15 12/23/18 10:14 DC 12/23/18 09:48 100 MLS/HR Bisacodyl (Dulcolax Supp) 10 mg STK-MED ONCE 12/22/18 07:03 12/22/18 08:05 DC Bupivacaine HCl/ Epinephrine Bitart (Sensorcain-Mpf Epi 0.5%-[id number]) 30 ml STK-MED ONCE 12/22/18 07:03 12/22/18 08:05 DC 12/22/18 12:23 5 ML Cefazolin Sodium/ Dextrose (Ancef 2gm Premix) 2 gm STK-MED ONCE 12/22/18 12:00 12/23/18 12:38 DC Cellulose (Surgicel Hemostat 4x8) 1 each STK-MED ONCE 12/22/18 07:03 12/22/18 08:05 DC 12/22/18 13:58 1 EACH Chlorhexidine Gluconate (Peridex) 15 ml BID 12/22/18 21:00 12/23/18 22:14 15 ML Dexamethasone Sodium Phosphate (Decadron) 20 mg STK-MED ONCE 12/22/18 09:59 12/22/18 10:00 DC Dopamine HCl/ Dextrose 250 ml @ 8.686 mls/ hr CONT PRN 12/22/18 17:45 12/24/18 01:52 26.057 MLS/HR Enoxaparin Sodium (Lovenox 40mg Syringe) 40 mg Q24H 12/23/18 09:00 12/23/18 09:28 40 MG Ephedrine Sulfate (Akovaz) 50 mg STK-MED ONCE 12/22/18 13:52 12/22/18 13:53 DC Ephedrine Sulfate (ePHEDrine PF IN SALINE SYRINGE) 50 mg STK-MED ONCE 12/22/18 14:29 12/22/18 14:30 DC Famotidine (Pepcid Vial) 20 mg STK-MED ONCE 12/22/18 09:59 12/22/18 10:00 DC Fentanyl Citrate (Fentanyl 2ml Vial) 100 mcg STK-MED ONCE 12/22/18 10:01 12/22/18 10:02 DC Furosemide (Lasix) 20 mg 1X ONCE 12/23/18 09:15 12/23/18 09:19 DC 12/23/18 12:03 20 MG Glycopyrrolate (Robinul) 1 mg STK-MED ONCE 12/22/18 12:28 12/22/18 12:29 DC Heparin Sodium (Porcine) 1000 unit/Sodium Chloride 1,001 ml @ 1,001 mls/hr 1X ONCE 12/22/18 06:00 12/22/18 06:59 DC 12/22/18 12:56 Hydromorphone HCl (Dilaudid) 0.5 mg PRN Q10MIN PRN 12/22/18 07:00 12/22/18 19:00 DC Ibuprofen (Motrin) 200 mg 1X PREOP 12/22/18 08:00 12/23/18 12:33 DC Info (Tpn Per Pharmacy) 1 each PRN DAILY PRN 12/23/18 09:15 12/23/18 12:55 1 EACH Insulin Human Lispro (HumaLOG) 0-8 UNITS Q6HRS 12/23/18 12:00 12/24/18 06:31 4 UNITS Iohexol (Omnipaque 300 Mg/ml) 100 ml STK-MED ONCE 12/22/18 07:03 12/22/18 08:05 DC 12/22/18 12:24 100 ML Lidocaine HCl (Lidocaine Pf 2% Vial) 5 ml STK-MED ONCE 12/22/18 09:59 12/22/18 10:00 DC Magnesium Sulfate 50 ml @ 25 mls/hr Q2H 12/23/18 09:15 12/23/18 13:14 DC 12/23/18 12:09 25 MLS/HR Magnesium Sulfate/ Dextrose 100 ml @ 25 mls/hr 1X ONCE 12/23/18 09:00 12/23/18 12:59 UNV Metronidazole 100 ml @ 100 mls/hr Q12HR 12/22/18 21:00 12/23/18 22:15 100 MLS/HR Midazolam HCl 100 ml @ 0 mls/hr CONT PRN 12/22/18 15:30 12/23/18 23:11 5 MLS/HR Midazolam HCl (Versed) 2 mg STK-MED ONCE 12/22/18 10:00 12/22/18 10:01 DC Morphine Sulfate 30 ml @ 0 mls/hr CONT PRN PRN 12/22/18 18:30 12/23/18 16:50 1 MLS/HR Morphine Sulfate (Morphine Sulfate) 1 mg PRN Q10MIN PRN 12/22/18 07:00 12/22/18 19:00 DC Naloxone HCl (Narcan) 0.4 mg PRN Q2MIN PRN 12/22/18 14:45 Neostigmine Methylsulfate (Neostigmine Methylsulfate) 5 mg STK-MED ONCE 12/22/18 12:29 12/22/18 12:30 DC Ondansetron HCl (Zofran) 4 mg PRN Q6HRS PRN 12/22/18 14:45 Pantoprazole Sodium (PROTONIX VIAL for IV PUSH) 40 mg DAILYAC 12/23/18 10:30 12/24/18 07:47 40 MG Phenylephrine HCl (Jeromy-Synephrine Inj) 10 mg STK-MED ONCE 12/22/18 12:49 12/22/18 12:50 DC Phenylephrine HCl (PHENYLEPHRINE in 0.9% NACL PF) 1 mg STK-MED ONCE 12/22/18 12:39 12/22/18 12:40 DC Piperacillin Sod/ Tazobactam Sod 3.375 gm/Sodium Chloride 50 ml @ 100 mls/hr Q6HRS 12/23/18 18:00 12/24/18 06:28 100 MLS/HR Prochlorperazine Edisylate (Compazine) 5 mg PACU PRN PRN 12/22/18 07:00 12/22/18 19:00 DC Propofol 20 ml @ As Directed STK-MED ONCE 12/22/18 09:59 12/22/18 10:00 DC Ringer's Solution 1,000 ml @ 100 mls/hr Q10H 12/22/18 16:00 12/24/18 01:52 100 MLS/HR Rocuronium [place] (Zemuron) 50 mg STK-MED ONCE 12/22/18 13:52 12/22/18 13:53 DC Sevoflurane (Ultane) 90 ml STK-MED ONCE 12/22/18 12:35 12/22/18 12:36 DC Sodium Chloride (Normal Saline Flush) 3 ml QSHIFT PRN 12/22/18 14:45 Sodium Chloride 110 meq/Sodium Acetate 12 meq/ Potassium Chloride 36 meq/ Magnesium Sulfate 12 meq/Calcium Gluconate 9.3 meq/ Multivitamins 10 ml/Chromium/ Copper/Manganese/ Seleni/Zn 1 ml/ Insulin Human Regular 70 unit/ Total Parenteral Nutrition/Amino Acids/Dextrose/ Fat Emulsion Intravenous 2,400 ml @ 100 mls/hr TPN CONT 12/23/18 22:00 12/24/18 21:59 12/23/18 22:15 100 MLS/HR Labs: Lab Laboratory Tests Test 12/23/18 08:35 12/23/18 12:05 12/23/18 16:25 12/23/18 17:45 O2 Saturation 95 % (92-99) Arterial Blood pH 7.52 (7.35-7.45) Arterial Blood pCO2 at Patient Temp 31 mmHg (35-46) Arterial Blood pO2 at Patient Temp 79 mmHg (75-108) Arterial Blood HCO3 25 mmol/L (21-28) Arterial Blood Base Excess 2 mmol/L (-3-3) FiO2 50 Glucose (Fingerstick) 180 mg/dL (70-99) 193 mg/dL (70-99) PF-Ltf-H-Type Natriuretic Peptide 90 pg/mL (0-124) Test 12/23/18 23:53 12/24/18 06:26 12/24/18 06:30 Glucose (Fingerstick) 233 mg/dL (70-99) 277 mg/dL (70-99) White Blood Count 4.5 x10^3/uL (4.0-11.0) Red Blood Count 2.74 x10^6/uL (4.30-5.70) Hemoglobin 7.0 g/dL (13.0-17.5) Hematocrit 21.9 % (39.0-53.0) Mean Corpuscular Volume 80 fL (79-100) Mean Corpuscular Hemoglobin 26 pg (25-35) Mean Corpuscular Hemoglobin Concent 32 g/dL (31-37) Red Cell Distribution Width 18.9 % (11.5-14.5) Platelet Count 178 x10^3/uL (140-400) Neutrophils (%) (Auto) 70 % (31-73) Lymphocytes (%) (Auto) 13 % (24-48) Monocytes (%) (Auto) 14 % (0-9) Eosinophils (%) (Auto) 3 % (0-3) Basophils (%) (Auto) 1 % (0-3) Neutrophils # (Auto) 3.1 x10^3uL (1.8-7.7) Lymphocytes # (Auto) 0.6 x10^3/uL (1.0-4.8) Monocytes # (Auto) 0.6 x10^3/uL (0.0-1.1) Eosinophils # (Auto) 0.1 x10^3/uL (0.0-0.7) Basophils # (Auto) 0.0 x10^3/uL (0.0-0.2) Sodium Level 140 mmol/L (136-145) Potassium Level 3.0 mmol/L (3.5-5.1) Chloride Level 106 mmol/L (98-107) Carbon Dioxide Level 29 mmol/L (21-32) Anion Gap 5 (6-14) Blood Urea Nitrogen 15 mg/dL (8-26) Creatinine 0.5 mg/dL (0.7-1.3) Estimated GFR (Cockcroft-Gault) 170.8 BUN/Creatinine Ratio 30 (6-20) Glucose Level 289 mg/dL (70-99) Calcium Level 7.2 mg/dL (8.5-10.1) Phosphorus Level 2.4 mg/dL (2.6-4.7) Magnesium Level 1.6 mg/dL (1.8-2.4) Total Bilirubin 1.5 mg/dL (0.2-1.0) Aspartate Amino Transf (AST/SGOT) 18 U/L (15-37) Alanine Aminotransferase (ALT/SGPT) 21 U/L (16-63) Alkaline Phosphatase 171 U/L (46-116) Total Protein 4.1 g/dL (6.4-8.2) Albumin 1.4 g/dL (3.4-5.0) Albumin/Globulin Ratio 0.5 (1.0-1.7) Objective: Assessment: 1. Severe cholecystitis, status post cholecystectomy, 12/22/2018. 2. Large pancreatic pseudocyst, status post open pancreatic pseudocyst gastrostomy, open cholecystectomy and gastrostomy tube placement on 12/22/2018. 3. Anemia, likely postop blood loss. 4. Acute respiratory failure postop intubated. 5. History of heavy alcohol dependence. 6. Systolic congestive heart failure. 7. Coronary artery disease, status post coronary artery bypass graft. 8. Acute metabolic encephalopathy. 9. History of fall with nasal fracture. 10. History of atrial fibrillation. 11. Severe protein-calorie malnutrition. 12. Obesity hypoventilation syndrome, likely obstructive sleep apnea, has bilevel positive airway pressure at night. Plan: Plan of Care cont Zosyn. cont Zyvox Follow up labs and cultures. Continue supportive care. Discussed with RN. ABIGAIL COY MD Dec 24, 2018 07:58
[2018-12-24] MEDS: ENOXAPARIN 40 MG/0.4 ML SYRINGE. SQ SCH (08:25)
[2018-12-24] MEDS: CHLORHEXIDINE 0.12% 15 ML MOUTHWASH. MM SCH ×2 (08:26→21:21)
--- NOTE | 2018-12-24 09:06 | PDOC ---
SURGICAL PROGRESS NOTE Subjective vent, sedated dopamine infusion significant drainage from MISTY Vital Signs Vital Signs Date Time Temp Pulse Resp B/P (MAP) Pulse Ox O2 Delivery O2 Flow Rate FiO2 12/24/18 08:40 97 Ventilator 12/24/18 08:00 79 124/49 (74) 12/24/18 08:00 18 12/24/18 07:00 98.7 98.7 I&O Intake and Output 12/24/18 07:00 Intake Total 4343.7 ml Output Total 5500 ml Balance -1156.3 ml IV Total 3908.7 ml Blood Product 335 ml Blood Product IV Normal Saline Flush 100 ml Output Urine Total 2400 ml Gastric Drainage Total 300 ml Drainage Total 2800 ml General: Other (sedated ) Abdomen: Soft, Other (drain serosang, gtube in place bilious) Labs Laboratory Tests Test 12/22/18 10:42 12/22/18 15:30 12/22/18 20:05 12/23/18 06:00 Glucose (Fingerstick) 120 mg/dL (70-99) O2 Saturation % (92-99) Arterial Blood pH 7.45 (7.35-7.45) Arterial Blood pCO2 at Patient Temp 38 mmHg (35-46) Arterial Blood pO2 at Patient Temp 84 mmHg (75-108) Arterial Blood HCO3 26 mmol/L (21-28) Arterial Blood Base Excess 2 mmol/L (-3-3) FiO2 60 White Blood Count 5.9 x10^3/uL (4.0-11.0) 6.6 x10^3/uL (4.0-11.0) Red Blood Count 2.79 x10^6/uL (4.30-5.70) 3.04 x10^6/uL (4.30-5.70) Hemoglobin 7.0 g/dL (13.0-17.5) 7.5 g/dL (13.0-17.5) Hematocrit 22.1 % (39.0-53.0) 24.1 % (39.0-53.0) Mean Corpuscular Volume 80 fL (79-100) 79 fL (79-100) Mean Corpuscular Hemoglobin 25 pg (25-35) 25 pg (25-35) Mean Corpuscular Hemoglobin Concent 31 g/dL (31-37) 31 g/dL (31-37) Red Cell Distribution Width 19.4 % (11.5-14.5) 18.8 % (11.5-14.5) Platelet Count 203 x10^3/uL (140-400) 217 x10^3/uL (140-400) Neutrophils (%) (Auto) 80 % (31-73) 75 % (31-73) Lymphocytes (%) (Auto) 10 % (24-48) 12 % (24-48) Monocytes (%) (Auto) 9 % (0-9) 11 % (0-9) Eosinophils (%) (Auto) 1 % (0-3) 1 % (0-3) Basophils (%) (Auto) 1 % (0-3) 1 % (0-3) Neutrophils # (Auto) 4.7 x10^3uL (1.8-7.7) 5.0 x10^3uL (1.8-7.7) Lymphocytes # (Auto) 0.6 x10^3/uL (1.0-4.8) 0.8 x10^3/uL (1.0-4.8) Monocytes # (Auto) 0.5 x10^3/uL (0.0-1.1) 0.7 x10^3/uL (0.0-1.1) Eosinophils # (Auto) 0.1 x10^3/uL (0.0-0.7) 0.1 x10^3/uL (0.0-0.7) Basophils # (Auto) 0.0 x10^3/uL (0.0-0.2) 0.1 x10^3/uL (0.0-0.2) Nasal Screen MRSA (PCR) Negative (Negative) Sodium Level 142 mmol/L (136-145) Potassium Level 3.8 mmol/L (3.5-5.1) Chloride Level 106 mmol/L (98-107) Carbon Dioxide Level 28 mmol/L (21-32) Anion Gap 8 (6-14) Blood Urea Nitrogen 16 mg/dL (8-26) Creatinine 0.6 mg/dL (0.7-1.3) Estimated GFR (Cockcroft-Gault) 138.4 BUN/Creatinine Ratio 27 (6-20) Glucose Level 195 mg/dL (70-99) Calcium Level 7.6 mg/dL (8.5-10.1) Phosphorus Level 3.8 mg/dL (2.6-4.7) Magnesium Level 1.3 mg/dL (1.8-2.4) Total Bilirubin 2.3 mg/dL (0.2-1.0) Aspartate Amino Transf (AST/SGOT) 41 U/L (15-37) Alanine Aminotransferase (ALT/SGPT) 44 U/L (16-63) Alkaline Phosphatase 256 U/L (46-116) Total Protein 4.3 g/dL (6.4-8.2) Albumin 1.5 g/dL (3.4-5.0) Albumin/Globulin Ratio 0.5 (1.0-1.7) Triglycerides Level 46 mg/dL (0-150) Cholesterol Level < 50 mg/dL (0-200) LDL Cholesterol, Calculated 30 mg/dL (0-100) VLDL Cholesterol, Calculated 9 mg/dL (0-40) Non-HDL Cholesterol Calculated 39 mg/dL (0-129) HDL Cholesterol 11 mg/dL (40-60) Cholesterol/HDL Ratio Test 12/23/18 08:35 12/23/18 12:05 12/23/18 16:25 12/23/18 17:45 O2 Saturation 95 % (92-99) Arterial Blood pH 7.52 (7.35-7.45) Arterial Blood pCO2 at Patient Temp 31 mmHg (35-46) Arterial Blood pO2 at Patient Temp 79 mmHg (75-108) Arterial Blood HCO3 25 mmol/L (21-28) Arterial Blood Base Excess 2 mmol/L (-3-3) FiO2 50 Glucose (Fingerstick) 180 mg/dL (70-99) 193 mg/dL (70-99) RU-Tii-T-Type Natriuretic Peptide 90 pg/mL (0-124) Test 12/23/18 23:53 12/24/18 06:26 12/24/18 06:30 Glucose (Fingerstick) 233 mg/dL (70-99) 277 mg/dL (70-99) White Blood Count 4.5 x10^3/uL (4.0-11.0) Red Blood Count 2.74 x10^6/uL (4.30-5.70) Hemoglobin 7.0 g/dL (13.0-17.5) Hematocrit 21.9 % (39.0-53.0) Mean Corpuscular Volume 80 fL (79-100) Mean Corpuscular Hemoglobin 26 pg (25-35) Mean Corpuscular Hemoglobin Concent 32 g/dL (31-37) Red Cell Distribution Width 18.9 % (11.5-14.5) Platelet Count 178 x10^3/uL (140-400) Neutrophils (%) (Auto) 70 % (31-73) Lymphocytes (%) (Auto) 13 % (24-48) Monocytes (%) (Auto) 14 % (0-9) Eosinophils (%) (Auto) 3 % (0-3) Basophils (%) (Auto) 1 % (0-3) Neutrophils # (Auto) 3.1 x10^3uL (1.8-7.7) Lymphocytes # (Auto) 0.6 x10^3/uL (1.0-4.8) Monocytes # (Auto) 0.6 x10^3/uL (0.0-1.1) Eosinophils # (Auto) 0.1 x10^3/uL (0.0-0.7) Basophils # (Auto) 0.0 x10^3/uL (0.0-0.2) Sodium Level 140 mmol/L (136-145) Potassium Level 3.0 mmol/L (3.5-5.1) Chloride Level 106 mmol/L (98-107) Carbon Dioxide Level 29 mmol/L (21-32) Anion Gap 5 (6-14) Blood Urea Nitrogen 15 mg/dL (8-26) Creatinine 0.5 mg/dL (0.7-1.3) Estimated GFR (Cockcroft-Gault) 170.8 BUN/Creatinine Ratio 30 (6-20) Glucose Level 289 mg/dL (70-99) Calcium Level 7.2 mg/dL (8.5-10.1) Phosphorus Level 2.4 mg/dL (2.6-4.7) Magnesium Level 1.6 mg/dL (1.8-2.4) Total Bilirubin 1.5 mg/dL (0.2-1.0) Aspartate Amino Transf (AST/SGOT) 18 U/L (15-37) Alanine Aminotransferase (ALT/SGPT) 21 U/L (16-63) Alkaline Phosphatase 171 U/L (46-116) Total Protein 4.1 g/dL (6.4-8.2) Albumin 1.4 g/dL (3.4-5.0) Albumin/Globulin Ratio 0.5 (1.0-1.7) Laboratory Tests Test 12/23/18 12:05 12/23/18 16:25 12/23/18 17:45 12/23/18 23:53 Glucose (Fingerstick) 180 mg/dL (70-99) 193 mg/dL (70-99) 233 mg/dL (70-99) EH-Hcy-Z-Type Natriuretic Peptide 90 pg/mL (0-124) Test 12/24/18 06:26 12/24/18 06:30 Glucose (Fingerstick) 277 mg/dL (70-99) White Blood Count 4.5 x10^3/uL (4.0-11.0) Red Blood Count 2.74 x10^6/uL (4.30-5.70) Hemoglobin 7.0 g/dL (13.0-17.5) Hematocrit 21.9 % (39.0-53.0) Mean Corpuscular Volume 80 fL (79-100) Mean Corpuscular Hemoglobin 26 pg (25-35) Mean Corpuscular Hemoglobin Concent 32 g/dL (31-37) Red Cell Distribution Width 18.9 % (11.5-14.5) Platelet Count 178 x10^3/uL (140-400) Neutrophils (%) (Auto) 70 % (31-73) Lymphocytes (%) (Auto) 13 % (24-48) Monocytes (%) (Auto) 14 % (0-9) Eosinophils (%) (Auto) 3 % (0-3) Basophils (%) (Auto) 1 % (0-3) Neutrophils # (Auto) 3.1 x10^3uL (1.8-7.7) Lymphocytes # (Auto) 0.6 x10^3/uL (1.0-4.8) Monocytes # (Auto) 0.6 x10^3/uL (0.0-1.1) Eosinophils # (Auto) 0.1 x10^3/uL (0.0-0.7) Basophils # (Auto) 0.0 x10^3/uL (0.0-0.2) Sodium Level 140 mmol/L (136-145) Potassium Level 3.0 mmol/L (3.5-5.1) Chloride Level 106 mmol/L (98-107) Carbon Dioxide Level 29 mmol/L (21-32) Anion Gap 5 (6-14) Blood Urea Nitrogen 15 mg/dL (8-26) Creatinine 0.5 mg/dL (0.7-1.3) Estimated GFR (Cockcroft-Gault) 170.8 BUN/Creatinine Ratio 30 (6-20) Glucose Level 289 mg/dL (70-99) Calcium Level 7.2 mg/dL (8.5-10.1) Phosphorus Level 2.4 mg/dL (2.6-4.7) Magnesium Level 1.6 mg/dL (1.8-2.4) Total Bilirubin 1.5 mg/dL (0.2-1.0) Aspartate Amino Transf (AST/SGOT) 18 U/L (15-37) Alanine Aminotransferase (ALT/SGPT) 21 U/L (16-63) Alkaline Phosphatase 171 U/L (46-116) Total Protein 4.1 g/dL (6.4-8.2) Albumin 1.4 g/dL (3.4-5.0) Albumin/Globulin Ratio 0.5 (1.0-1.7) Assessment/Plan s/p xlap supportive measures MAIKOL MORRELL APRN Dec 24, 2018 09:06
[2018-12-24 09:10] LABS: BASE EXCESS ABG 1 mmol/L (-3-3); HCO3 ABG 25 mmol/L (21-28); PCO2 ABG 39 mmHg (35-46); PO2 ABG 88 mmHg (75-108); SAT O2 ABG 94 % (92-99)
[2018-12-24] MEDS: POTASSIUM PHOSPHATE DIBASIC 10 MMOL in IV DEXTROSE 5% 100ML 100 ML IV SCH ×2 (10:09→13:02)
[2018-12-24] MEDS ORDERED: MAGNESIUM SULFATE 2GM 50 ML IV ONE (10:30)
--- NOTE | 2018-12-24 11:03 | PDOC ---
PULMONARY PROGRESS NOTES Subjective PT SEDATED ON PRESSORS AC MODE Vitals Vital Signs Date Time Temp Pulse Resp B/P (MAP) Pulse Ox O2 Delivery O2 Flow Rate FiO2 12/24/18 10:40 94 Ventilator 12/24/18 10:00 78 18 105/41 (62) 12/24/18 07:00 98.7 98.7 ROS: No Nausea Lungs: Crackles Cardiovascular: S1, S2 Abdomen: Soft, Other (G TUBE) Extremities: Other (EDEMA) Skin: Warm Labs Laboratory Tests Test 12/22/18 15:30 12/22/18 20:05 12/23/18 06:00 12/23/18 08:35 O2 Saturation % (92-99) 95 % (92-99) Arterial Blood pH 7.45 (7.35-7.45) 7.52 (7.35-7.45) Arterial Blood pCO2 at Patient Temp 38 mmHg (35-46) 31 mmHg (35-46) Arterial Blood pO2 at Patient Temp 84 mmHg (75-108) 79 mmHg (75-108) Arterial Blood HCO3 26 mmol/L (21-28) 25 mmol/L (21-28) Arterial Blood Base Excess 2 mmol/L (-3-3) 2 mmol/L (-3-3) FiO2 60 50 White Blood Count 5.9 x10^3/uL (4.0-11.0) 6.6 x10^3/uL (4.0-11.0) Red Blood Count 2.79 x10^6/uL (4.30-5.70) 3.04 x10^6/uL (4.30-5.70) Hemoglobin 7.0 g/dL (13.0-17.5) 7.5 g/dL (13.0-17.5) Hematocrit 22.1 % (39.0-53.0) 24.1 % (39.0-53.0) Mean Corpuscular Volume 80 fL (79-100) 79 fL (79-100) Mean Corpuscular Hemoglobin 25 pg (25-35) 25 pg (25-35) Mean Corpuscular Hemoglobin Concent 31 g/dL (31-37) 31 g/dL (31-37) Red Cell Distribution Width 19.4 % (11.5-14.5) 18.8 % (11.5-14.5) Platelet Count 203 x10^3/uL (140-400) 217 x10^3/uL (140-400) Neutrophils (%) (Auto) 80 % (31-73) 75 % (31-73) Lymphocytes (%) (Auto) 10 % (24-48) 12 % (24-48) Monocytes (%) (Auto) 9 % (0-9) 11 % (0-9) Eosinophils (%) (Auto) 1 % (0-3) 1 % (0-3) Basophils (%) (Auto) 1 % (0-3) 1 % (0-3) Neutrophils # (Auto) 4.7 x10^3uL (1.8-7.7) 5.0 x10^3uL (1.8-7.7) Lymphocytes # (Auto) 0.6 x10^3/uL (1.0-4.8) 0.8 x10^3/uL (1.0-4.8) Monocytes # (Auto) 0.5 x10^3/uL (0.0-1.1) 0.7 x10^3/uL (0.0-1.1) Eosinophils # (Auto) 0.1 x10^3/uL (0.0-0.7) 0.1 x10^3/uL (0.0-0.7) Basophils # (Auto) 0.0 x10^3/uL (0.0-0.2) 0.1 x10^3/uL (0.0-0.2) Nasal Screen MRSA (PCR) Negative (Negative) Sodium Level 142 mmol/L (136-145) Potassium Level 3.8 mmol/L (3.5-5.1) Chloride Level 106 mmol/L (98-107) Carbon Dioxide Level 28 mmol/L (21-32) Anion Gap 8 (6-14) Blood Urea Nitrogen 16 mg/dL (8-26) Creatinine 0.6 mg/dL (0.7-1.3) Estimated GFR (Cockcroft-Gault) 138.4 BUN/Creatinine Ratio 27 (6-20) Glucose Level 195 mg/dL (70-99) Calcium Level 7.6 mg/dL (8.5-10.1) Phosphorus Level 3.8 mg/dL (2.6-4.7) Magnesium Level 1.3 mg/dL (1.8-2.4) Total Bilirubin 2.3 mg/dL (0.2-1.0) Aspartate Amino Transf (AST/SGOT) 41 U/L (15-37) Alanine Aminotransferase (ALT/SGPT) 44 U/L (16-63) Alkaline Phosphatase 256 U/L (46-116) Total Protein 4.3 g/dL (6.4-8.2) Albumin 1.5 g/dL (3.4-5.0) Albumin/Globulin Ratio 0.5 (1.0-1.7) Triglycerides Level 46 mg/dL (0-150) Cholesterol Level < 50 mg/dL (0-200) LDL Cholesterol, Calculated 30 mg/dL (0-100) VLDL Cholesterol, Calculated 9 mg/dL (0-40) Non-HDL Cholesterol Calculated 39 mg/dL (0-129) HDL Cholesterol 11 mg/dL (40-60) Cholesterol/HDL Ratio Test 12/23/18 12:05 12/23/18 16:25 12/23/18 17:45 12/23/18 23:53 Glucose (Fingerstick) 180 mg/dL (70-99) 193 mg/dL (70-99) 233 mg/dL (70-99) PJ-Ecf-P-Type Natriuretic Peptide 90 pg/mL (0-124) Test 12/24/18 06:26 12/24/18 06:30 Glucose (Fingerstick) 277 mg/dL (70-99) White Blood Count 4.5 x10^3/uL (4.0-11.0) Red Blood Count 2.74 x10^6/uL (4.30-5.70) Hemoglobin 7.0 g/dL (13.0-17.5) Hematocrit 21.9 % (39.0-53.0) Mean Corpuscular Volume 80 fL (79-100) Mean Corpuscular Hemoglobin 26 pg (25-35) Mean Corpuscular Hemoglobin Concent 32 g/dL (31-37) Red Cell Distribution Width 18.9 % (11.5-14.5) Platelet Count 178 x10^3/uL (140-400) Neutrophils (%) (Auto) 70 % (31-73) Lymphocytes (%) (Auto) 13 % (24-48) Monocytes (%) (Auto) 14 % (0-9) Eosinophils (%) (Auto) 3 % (0-3) Basophils (%) (Auto) 1 % (0-3) Neutrophils # (Auto) 3.1 x10^3uL (1.8-7.7) Lymphocytes # (Auto) 0.6 x10^3/uL (1.0-4.8) Monocytes # (Auto) 0.6 x10^3/uL (0.0-1.1) Eosinophils # (Auto) 0.1 x10^3/uL (0.0-0.7) Basophils # (Auto) 0.0 x10^3/uL (0.0-0.2) Sodium Level 140 mmol/L (136-145) Potassium Level 3.0 mmol/L (3.5-5.1) Chloride Level 106 mmol/L (98-107) Carbon Dioxide Level 29 mmol/L (21-32) Anion Gap 5 (6-14) Blood Urea Nitrogen 15 mg/dL (8-26) Creatinine 0.5 mg/dL (0.7-1.3) Estimated GFR (Cockcroft-Gault) 170.8 BUN/Creatinine Ratio 30 (6-20) Glucose Level 289 mg/dL (70-99) Calcium Level 7.2 mg/dL (8.5-10.1) Phosphorus Level 2.4 mg/dL (2.6-4.7) Magnesium Level 1.6 mg/dL (1.8-2.4) Total Bilirubin 1.5 mg/dL (0.2-1.0) Aspartate Amino Transf (AST/SGOT) 18 U/L (15-37) Alanine Aminotransferase (ALT/SGPT) 21 U/L (16-63) Alkaline Phosphatase 171 U/L (46-116) Total Protein 4.1 g/dL (6.4-8.2) Albumin 1.4 g/dL (3.4-5.0) Albumin/Globulin Ratio 0.5 (1.0-1.7) Laboratory Tests Test 12/23/18 12:05 12/23/18 16:25 12/23/18 17:45 12/23/18 23:53 Glucose (Fingerstick) 180 mg/dL (70-99) 193 mg/dL (70-99) 233 mg/dL (70-99) AH-Oel-P-Type Natriuretic Peptide 90 pg/mL (0-124) Test 12/24/18 06:26 12/24/18 06:30 Glucose (Fingerstick) 277 mg/dL (70-99) White Blood Count 4.5 x10^3/uL (4.0-11.0) Red Blood Count 2.74 x10^6/uL (4.30-5.70) Hemoglobin 7.0 g/dL (13.0-17.5) Hematocrit 21.9 % (39.0-53.0) Mean Corpuscular Volume 80 fL (79-100) Mean Corpuscular Hemoglobin 26 pg (25-35) Mean Corpuscular Hemoglobin Concent 32 g/dL (31-37) Red Cell Distribution Width 18.9 % (11.5-14.5) Platelet Count 178 x10^3/uL (140-400) Neutrophils (%) (Auto) 70 % (31-73) Lymphocytes (%) (Auto) 13 % (24-48) Monocytes (%) (Auto) 14 % (0-9) Eosinophils (%) (Auto) 3 % (0-3) Basophils (%) (Auto) 1 % (0-3) Neutrophils # (Auto) 3.1 x10^3uL (1.8-7.7) Lymphocytes # (Auto) 0.6 x10^3/uL (1.0-4.8) Monocytes # (Auto) 0.6 x10^3/uL (0.0-1.1) Eosinophils # (Auto) 0.1 x10^3/uL (0.0-0.7) Basophils # (Auto) 0.0 x10^3/uL (0.0-0.2) Sodium Level 140 mmol/L (136-145) Potassium Level 3.0 mmol/L (3.5-5.1) Chloride Level 106 mmol/L (98-107) Carbon Dioxide Level 29 mmol/L (21-32) Anion Gap 5 (6-14) Blood Urea Nitrogen 15 mg/dL (8-26) Creatinine 0.5 mg/dL (0.7-1.3) Estimated GFR (Cockcroft-Gault) 170.8 BUN/Creatinine Ratio 30 (6-20) Glucose Level 289 mg/dL (70-99) Calcium Level 7.2 mg/dL (8.5-10.1) Phosphorus Level 2.4 mg/dL (2.6-4.7) Magnesium Level 1.6 mg/dL (1.8-2.4) Total Bilirubin 1.5 mg/dL (0.2-1.0) Aspartate Amino Transf (AST/SGOT) 18 U/L (15-37) Alanine Aminotransferase (ALT/SGPT) 21 U/L (16-63) Alkaline Phosphatase 171 U/L (46-116) Total Protein 4.1 g/dL (6.4-8.2) Albumin 1.4 g/dL (3.4-5.0) Albumin/Globulin Ratio 0.5 (1.0-1.7) Medications Active Scripts Medications Dose Route/Sig Max Daily Dose Days Date Category Trophamine (Amino Acids 10 %) 500 Ml Iv.soln 500 Ml IV DAILY 199912/21/18 Reported Duoneb 0.5-3(2.5) Mg/3 Ml (Albuterol/Ipratropium) 3 Ml Ampul.neb 3 Ml NEB BID 12/21/18 Reported Dulcolax (Bisacodyl) 10 Mg Supp.rect 10 Mg RC PRN DAILY PRN 12/21/18 Reported Duoneb 0.5-3(2.5) Mg/3 Ml (Albuterol/Ipratropium) 3 Ml Ampul.neb 3 Ml NEB PRN Q4HRS PRN 12/21/18 Reported Atorvastatin Calcium 40 Mg Tablet 1 Tab PO QHS 12/21/18 Reported Simethicone 80 Mg Tab.chew 80 Mg PO PRN TID PRN 12/21/18 Reported Humalog (Insulin Lispro) 100 Unit/1 Ml Vial 0 SQ Q6HRS 12/21/18 Reported Ondansetron Hcl 4 Mg/2 Ml Vial (Ondansetron Hcl/Pf) 4 Mg/2 Ml Vial 4 Mg IJ PRN Q6HRS PRN 12/21/18 Reported Actos (Pioglitazone Hcl) 15 Mg Tablet 1 Tab PO DAILY 12/21/18 Reported Tylenol Extra Strength (Acetaminophen) 500 Mg Tablet 1,000 Mg PO PRN Q6HRS PRN 12/21/18 Reported Senokot-S Tablet (Sennosides/Docusate Sodium) 1 Each Tablet 1 Tab PO BID 12/21/18 Reported Vitamin D3 (Cholecalciferol (Vitamin D3)) 1,000 Unit Tablet 1 Tab PO DAILY 12/21/18 Reported Carvedilol (Carvedilol) 12.5 Mg Tablet 12.5 Mg PO BIDWMEALS 12/21/18 Reported Impression . IMPRESSION: 1. Expected hypoxemic respiratory failure, status post open pancreatic pseudocyst gastrostomy, open cholecystectomy, G-tube placement. 2. History of necrotizing pancreatitis. 3. Abnormal x-ray. 4. Possible sepsis. 5. Coronary artery disease, status post coronary artery bypass grafting. 6. History of alcoholism. 7. Protein malnutrition, present upon admission. 8. Acute blood loss anemia, expected. Plan . STILL CRITICALLY ILL WILL CONTINUE SUPPORT D/W RT DECREASE MINUTE VENTILATION LABS AND CXR REVIEWED 1. We will continue support with assist control ventilation. 2. Transfuse per Dr. Cook. 3. Continue IV fluids, pressors for mean arterial pressure above 60. 4. DVT and GI prophylaxis. 5. Nutritional support per Dr. Cook. 6. Continue Flagyl. 7. Pain management. NALINI GASCA MD Dec 24, 2018 11:03
[2018-12-24] MEDS ORDERED: ALBUMIN HUMAN 25% 100 ML IV ONE (11:15)
[2018-12-24] MEDS ORDERED: FUROSEMIDE 20 MG/2 ML VIAL. IVP ONE (11:15)
--- NOTE | 2018-12-24 11:24 | PDOC ---
IM PROGRESS NOTES- Subjective Subjective Patient is sedated and unable to do systems review. Objective Vitals Vital Signs Date Time Temp Pulse Resp B/P (MAP) Pulse Ox O2 Delivery O2 Flow Rate FiO2 12/24/18 10:40 94 Ventilator 12/24/18 10:00 78 18 105/41 (62) 12/24/18 07:00 98.7 98.7 Input & Output Intake and Output 12/24/18 07:00 Intake Total 4343.7 ml Output Total 5500 ml Balance -1156.3 ml IV Total 3908.7 ml Blood Product 335 ml Blood Product IV Normal Saline Flush 100 ml Output Urine Total 2400 ml Gastric Drainage Total 300 ml Drainage Total 2800 ml Physical Exam Physical Exam GENERAL: The patient is sedated on mechanical ventilation. Tracheostomy tube in place, eyes closed. HEENT: Partial exam. No other changes. LUNGS: Decreased breath sounds at bases. CARDIOVASCULAR: S1, S2 regular. ABDOMEN: The patient is status post surgery with dressing in place. Bowel sounds hyperactive. EXTREMITIES: 3-4+ edema. The patient also has anasarca. CENTRAL NERVOUS SYSTEM: Sedated. Labs Laboratory Tests Test 12/22/18 15:30 12/22/18 20:05 12/23/18 06:00 12/23/18 08:35 O2 Saturation % (92-99) 95 % (92-99) Arterial Blood pH 7.45 (7.35-7.45) 7.52 (7.35-7.45) Arterial Blood pCO2 at Patient Temp 38 mmHg (35-46) 31 mmHg (35-46) Arterial Blood pO2 at Patient Temp 84 mmHg (75-108) 79 mmHg (75-108) Arterial Blood HCO3 26 mmol/L (21-28) 25 mmol/L (21-28) Arterial Blood Base Excess 2 mmol/L (-3-3) 2 mmol/L (-3-3) FiO2 60 50 White Blood Count 5.9 x10^3/uL (4.0-11.0) 6.6 x10^3/uL (4.0-11.0) Red Blood Count 2.79 x10^6/uL (4.30-5.70) 3.04 x10^6/uL (4.30-5.70) Hemoglobin 7.0 g/dL (13.0-17.5) 7.5 g/dL (13.0-17.5) Hematocrit 22.1 % (39.0-53.0) 24.1 % (39.0-53.0) Mean Corpuscular Volume 80 fL (79-100) 79 fL (79-100) Mean Corpuscular Hemoglobin 25 pg (25-35) 25 pg (25-35) Mean Corpuscular Hemoglobin Concent 31 g/dL (31-37) 31 g/dL (31-37) Red Cell Distribution Width 19.4 % (11.5-14.5) 18.8 % (11.5-14.5) Platelet Count 203 x10^3/uL (140-400) 217 x10^3/uL (140-400) Neutrophils (%) (Auto) 80 % (31-73) 75 % (31-73) Lymphocytes (%) (Auto) 10 % (24-48) 12 % (24-48) Monocytes (%) (Auto) 9 % (0-9) 11 % (0-9) Eosinophils (%) (Auto) 1 % (0-3) 1 % (0-3) Basophils (%) (Auto) 1 % (0-3) 1 % (0-3) Neutrophils # (Auto) 4.7 x10^3uL (1.8-7.7) 5.0 x10^3uL (1.8-7.7) Lymphocytes # (Auto) 0.6 x10^3/uL (1.0-4.8) 0.8 x10^3/uL (1.0-4.8) Monocytes # (Auto) 0.5 x10^3/uL (0.0-1.1) 0.7 x10^3/uL (0.0-1.1) Eosinophils # (Auto) 0.1 x10^3/uL (0.0-0.7) 0.1 x10^3/uL (0.0-0.7) Basophils # (Auto) 0.0 x10^3/uL (0.0-0.2) 0.1 x10^3/uL (0.0-0.2) Nasal Screen MRSA (PCR) Negative (Negative) Sodium Level 142 mmol/L (136-145) Potassium Level 3.8 mmol/L (3.5-5.1) Chloride Level 106 mmol/L (98-107) Carbon Dioxide Level 28 mmol/L (21-32) Anion Gap 8 (6-14) Blood Urea Nitrogen 16 mg/dL (8-26) Creatinine 0.6 mg/dL (0.7-1.3) Estimated GFR (Cockcroft-Gault) 138.4 BUN/Creatinine Ratio 27 (6-20) Glucose Level 195 mg/dL (70-99) Calcium Level 7.6 mg/dL (8.5-10.1) Phosphorus Level 3.8 mg/dL (2.6-4.7) Magnesium Level 1.3 mg/dL (1.8-2.4) Total Bilirubin 2.3 mg/dL (0.2-1.0) Aspartate Amino Transf (AST/SGOT) 41 U/L (15-37) Alanine Aminotransferase (ALT/SGPT) 44 U/L (16-63) Alkaline Phosphatase 256 U/L (46-116) Total Protein 4.3 g/dL (6.4-8.2) Albumin 1.5 g/dL (3.4-5.0) Albumin/Globulin Ratio 0.5 (1.0-1.7) Triglycerides Level 46 mg/dL (0-150) Cholesterol Level < 50 mg/dL (0-200) LDL Cholesterol, Calculated 30 mg/dL (0-100) VLDL Cholesterol, Calculated 9 mg/dL (0-40) Non-HDL Cholesterol Calculated 39 mg/dL (0-129) HDL Cholesterol 11 mg/dL (40-60) Cholesterol/HDL Ratio Test 12/23/18 12:05 12/23/18 16:25 12/23/18 17:45 12/23/18 23:53 Glucose (Fingerstick) 180 mg/dL (70-99) 193 mg/dL (70-99) 233 mg/dL (70-99) DI-Dxt-O-Type Natriuretic Peptide 90 pg/mL (0-124) Test 12/24/18 06:26 12/24/18 06:30 Glucose (Fingerstick) 277 mg/dL (70-99) White Blood Count 4.5 x10^3/uL (4.0-11.0) Red Blood Count 2.74 x10^6/uL (4.30-5.70) Hemoglobin 7.0 g/dL (13.0-17.5) Hematocrit 21.9 % (39.0-53.0) Mean Corpuscular Volume 80 fL (79-100) Mean Corpuscular Hemoglobin 26 pg (25-35) Mean Corpuscular Hemoglobin Concent 32 g/dL (31-37) Red Cell Distribution Width 18.9 % (11.5-14.5) Platelet Count 178 x10^3/uL (140-400) Neutrophils (%) (Auto) 70 % (31-73) Lymphocytes (%) (Auto) 13 % (24-48) Monocytes (%) (Auto) 14 % (0-9) Eosinophils (%) (Auto) 3 % (0-3) Basophils (%) (Auto) 1 % (0-3) Neutrophils # (Auto) 3.1 x10^3uL (1.8-7.7) Lymphocytes # (Auto) 0.6 x10^3/uL (1.0-4.8) Monocytes # (Auto) 0.6 x10^3/uL (0.0-1.1) Eosinophils # (Auto) 0.1 x10^3/uL (0.0-0.7) Basophils # (Auto) 0.0 x10^3/uL (0.0-0.2) Sodium Level 140 mmol/L (136-145) Potassium Level 3.0 mmol/L (3.5-5.1) Chloride Level 106 mmol/L (98-107) Carbon Dioxide Level 29 mmol/L (21-32) Anion Gap 5 (6-14) Blood Urea Nitrogen 15 mg/dL (8-26) Creatinine 0.5 mg/dL (0.7-1.3) Estimated GFR (Cockcroft-Gault) 170.8 BUN/Creatinine Ratio 30 (6-20) Glucose Level 289 mg/dL (70-99) Calcium Level 7.2 mg/dL (8.5-10.1) Phosphorus Level 2.4 mg/dL (2.6-4.7) Magnesium Level 1.6 mg/dL (1.8-2.4) Total Bilirubin 1.5 mg/dL (0.2-1.0) Aspartate Amino Transf (AST/SGOT) 18 U/L (15-37) Alanine Aminotransferase (ALT/SGPT) 21 U/L (16-63) Alkaline Phosphatase 171 U/L (46-116) Total Protein 4.1 g/dL (6.4-8.2) Albumin 1.4 g/dL (3.4-5.0) Albumin/Globulin Ratio 0.5 (1.0-1.7) Laboratory Tests Test 12/23/18 12:05 12/23/18 16:25 12/23/18 17:45 12/23/18 23:53 Glucose (Fingerstick) 180 mg/dL (70-99) 193 mg/dL (70-99) 233 mg/dL (70-99) TN-Mxb-F-Type Natriuretic Peptide 90 pg/mL (0-124) Test 12/24/18 06:26 12/24/18 06:30 Glucose (Fingerstick) 277 mg/dL (70-99) White Blood Count 4.5 x10^3/uL (4.0-11.0) Red Blood Count 2.74 x10^6/uL (4.30-5.70) Hemoglobin 7.0 g/dL (13.0-17.5) Hematocrit 21.9 % (39.0-53.0) Mean Corpuscular Volume 80 fL (79-100) Mean Corpuscular Hemoglobin 26 pg (25-35) Mean Corpuscular Hemoglobin Concent 32 g/dL (31-37) Red Cell Distribution Width 18.9 % (11.5-14.5) Platelet Count 178 x10^3/uL (140-400) Neutrophils (%) (Auto) 70 % (31-73) Lymphocytes (%) (Auto) 13 % (24-48) Monocytes (%) (Auto) 14 % (0-9) Eosinophils (%) (Auto) 3 % (0-3) Basophils (%) (Auto) 1 % (0-3) Neutrophils # (Auto) 3.1 x10^3uL (1.8-7.7) Lymphocytes # (Auto) 0.6 x10^3/uL (1.0-4.8) Monocytes # (Auto) 0.6 x10^3/uL (0.0-1.1) Eosinophils # (Auto) 0.1 x10^3/uL (0.0-0.7) Basophils # (Auto) 0.0 x10^3/uL (0.0-0.2) Sodium Level 140 mmol/L (136-145) Potassium Level 3.0 mmol/L (3.5-5.1) Chloride Level 106 mmol/L (98-107) Carbon Dioxide Level 29 mmol/L (21-32) Anion Gap 5 (6-14) Blood Urea Nitrogen 15 mg/dL (8-26) Creatinine 0.5 mg/dL (0.7-1.3) Estimated GFR (Cockcroft-Gault) 170.8 BUN/Creatinine Ratio 30 (6-20) Glucose Level 289 mg/dL (70-99) Calcium Level 7.2 mg/dL (8.5-10.1) Phosphorus Level 2.4 mg/dL (2.6-4.7) Magnesium Level 1.6 mg/dL (1.8-2.4) Total Bilirubin 1.5 mg/dL (0.2-1.0) Aspartate Amino Transf (AST/SGOT) 18 U/L (15-37) Alanine Aminotransferase (ALT/SGPT) 21 U/L (16-63) Alkaline Phosphatase 171 U/L (46-116) Total Protein 4.1 g/dL (6.4-8.2) Albumin 1.4 g/dL (3.4-5.0) Albumin/Globulin Ratio 0.5 (1.0-1.7) Meds Current Medications Albumin Human 100 ml @ 100 mls/hr 1X ONCE IV ; Start 12/24/18 at 11:15; Stop 12/24/18 at 12:14; Status UNV Furosemide (Lasix) 20 mg 1X ONCE IVP ; Start 12/24/18 at 11:15; Stop 12/24/18 at 11:16 Insulin Human Lispro (HumaLOG) 0-8 UNITS Q6HRS SQ Last administered on at 06:31; Start 12/23/18 at 12:00 Linezolid/Dextrose 300 ml @ 300 mls/hr Q12HR IV Last administered on at 08:17; Start 12/24/18 at 09:00 Magnesium Sulfate 50 ml @ 25 mls/hr 1X ONCE IV Last administered on 12/24/18at 10:34; Start 12/24/18 at 10:30; Stop 12/24/18 at 12:29 Piperacillin Sod/ Tazobactam Sod 3.375 gm/Sodium Chloride 50 ml @ 100 mls/hr Q6HRS IV Last administered on 12/24/18at 06:28; Start 12/23/18 at 18:00 Potassium Phosphate 10 mmol/ Dextrose 103.3333 ml @ 51.667 m... Q2H IV Last administered on 12/24/18at 10:09; Start 12/24/18 at 10:30; Stop 12/24/18 at 14:29 Sodium Chloride 110 meq/Sodium Acetate 12 meq/ Potassium Chloride 36 meq/ Magnesium Sulfate 12 meq/Calcium Gluconate 9.3 meq/ Multivitamins 10 ml/Chromium / Copper/Manganese/ Seleni/Zn 1 ml/ Insulin Human Regular 70 unit/ Total Parenteral Nutrition/Amino Acids/Dextrose/ Fat Emulsion Intravenous 2,400 ml @ 100 mls/hr TPN CONT IV Last administered on 12/23/18at 22:15; Start 12/23/18 at 22:00; Stop 12/24/18 at 21:59 Assessment Assessment 1. Acute respiratory failure. 2. Acute hypotension, on dopamine. The patient's urine output is stable, but the patient has a significant fluid retention due to third spacing. 3. Acute pancreatitis with pseudocyst. 4. Systolic congestive heart failure. 5. Coronary artery disease, history of coronary artery bypass graft x 5. 6. Acute metabolic encephalopathy. 7. History of fall with nasal fracture. 8. History of atrial fibrillation. 9. Hyperlipidemia. 10. Severe protein-calorie malnutrition. 11. Anemia. 12. Obesity hypoventilation syndrome, with likely obstructive sleep apnea, has been on BiPAP at night. PLAN: The patient is retaining significant amount of fluids, so I will give him 1 amp of 25% albumin along with 1 unit of packed red cells as well as Lasix. Continue IV dopamine to maintain systolic blood pressure. Monitor urine output. I ordered 1 unit of packed red cells because of significant blood loss yesterday along with significant hypotension with his coronary artery disease, congestive heart failure and third spacing due to hypotension even though his hemoglobin is 7.5. We will consult Dr. Moralez for cardiology evaluation and management, Dr. Cornejo for infectious disease evaluation and management and Dr. Romero has been consulted for pulmonary evaluation and management. Continue management of the mechanical ventilation. Continue to hold some of the previous medications. We will start TPN this evening and continue to monitor blood sugars every 6 hours and regular insulin to TPN and also start him on IV Protonix. Prognosis of this patient is very poor. For details, please refer to the orders. I will also consult Dr. Giraldo for GI evaluation and management. Fluid retention- hemoglobin is 7 so we'll transfuse 1 unit, give 1 amp of the IV albumin as well as 20 mg of IV Lasix. Consult Dr. Ken for management of fluid retention. He has severe anasarca. Albumin is only 1.4. Severe protein calorie malnutrition- continue TPN Diabetes mellitus type 2- not controlled. Continue regular insulin in TPN as well as sliding scale insulin. Hypokalemia- replace Hypomagnesemia- replace Discussed with Dr. Cook and patient's brother Weston. Hypotension- patient is on dopamine 2 mics per minute. Coronary artery disease- echocardiogram shows ejection fraction of 60%. Acute cholecystitis continue IV Zosyn and Zyvox Plan Plan For more details regarding further plans, please refer to the orders. REHANA CASE MD Dec 24, 2018 11:24
[2018-12-24 11:44] LABS: FIO2 ABG 40
--- NOTE | 2018-12-24 11:51 | PDOC ---
CARDIO Progress Notes Date and Time Date of Service 12/24/18 Time of Evaluation 1110 Subjective Subjective: Other (sedated) Vitals Vitals Vital Signs Date Time Temp Pulse Resp B/P (MAP) Pulse Ox O2 Delivery O2 Flow Rate FiO2 12/24/18 11:42 Mechanical Ventilator 12/24/18 11:00 78 18 118/44 (68) 96 12/24/18 07:00 98.7 98.7 Weight Weight [ ] Input and Output Intake and Output Intake and Output 12/24/18 07:00 Intake Total 4343.7 ml Output Total 5500 ml Balance -1156.3 ml IV Total 3908.7 ml Blood Product 335 ml Blood Product IV Normal Saline Flush 100 ml Output Urine Total 2400 ml Gastric Drainage Total 300 ml Drainage Total 2800 ml Laboratory Labs Laboratory Tests Test 12/23/18 12:05 12/23/18 16:25 12/23/18 17:45 12/23/18 23:53 Glucose (Fingerstick) 180 mg/dL (70-99) 193 mg/dL (70-99) 233 mg/dL (70-99) GS-Tta-W-Type Natriuretic Peptide 90 pg/mL (0-124) Test 12/24/18 06:26 12/24/18 06:30 12/24/18 08:00 Glucose (Fingerstick) 277 mg/dL (70-99) White Blood Count 4.5 x10^3/uL (4.0-11.0) Red Blood Count 2.74 x10^6/uL (4.30-5.70) Hemoglobin 7.0 g/dL (13.0-17.5) Hematocrit 21.9 % (39.0-53.0) Mean Corpuscular Volume 80 fL (79-100) Mean Corpuscular Hemoglobin 26 pg (25-35) Mean Corpuscular Hemoglobin Concent 32 g/dL (31-37) Red Cell Distribution Width 18.9 % (11.5-14.5) Platelet Count 178 x10^3/uL (140-400) Neutrophils (%) (Auto) 70 % (31-73) Lymphocytes (%) (Auto) 13 % (24-48) Monocytes (%) (Auto) 14 % (0-9) Eosinophils (%) (Auto) 3 % (0-3) Basophils (%) (Auto) 1 % (0-3) Neutrophils # (Auto) 3.1 x10^3uL (1.8-7.7) Lymphocytes # (Auto) 0.6 x10^3/uL (1.0-4.8) Monocytes # (Auto) 0.6 x10^3/uL (0.0-1.1) Eosinophils # (Auto) 0.1 x10^3/uL (0.0-0.7) Basophils # (Auto) 0.0 x10^3/uL (0.0-0.2) Sodium Level 140 mmol/L (136-145) Potassium Level 3.0 mmol/L (3.5-5.1) Chloride Level 106 mmol/L (98-107) Carbon Dioxide Level 29 mmol/L (21-32) Anion Gap 5 (6-14) Blood Urea Nitrogen 15 mg/dL (8-26) Creatinine 0.5 mg/dL (0.7-1.3) Estimated GFR (Cockcroft-Gault) 170.8 BUN/Creatinine Ratio 30 (6-20) Glucose Level 289 mg/dL (70-99) Calcium Level 7.2 mg/dL (8.5-10.1) Phosphorus Level 2.4 mg/dL (2.6-4.7) Magnesium Level 1.6 mg/dL (1.8-2.4) Total Bilirubin 1.5 mg/dL (0.2-1.0) Aspartate Amino Transf (AST/SGOT) 18 U/L (15-37) Alanine Aminotransferase (ALT/SGPT) 21 U/L (16-63) Alkaline Phosphatase 171 U/L (46-116) Total Protein 4.1 g/dL (6.4-8.2) Albumin 1.4 g/dL (3.4-5.0) Albumin/Globulin Ratio 0.5 (1.0-1.7) O2 Saturation 94 % (92-99) Arterial Blood pH 7.43 (7.35-7.45) Arterial Blood pCO2 at Patient Temp 39 mmHg (35-46) Arterial Blood pO2 at Patient Temp 88 mmHg (75-108) Arterial Blood HCO3 25 mmol/L (21-28) Arterial Blood Base Excess 1 mmol/L (-3-3) FiO2 40 Microbiology Micro Microbiology 12/22/18 Anaerobic/Aerobic Culture, Resulted Pending 3/26/19 Anaerobic Culture Result 1 (MELONY), Resulted Pending 12/22/18 Aerobic Culture, Resulted Pending 12/22/18 Aerobic Culture Result 1 (MELONY), Resulted Pending 12/22/18 Gram Stain - Final, Resulted 12/22/18 Gram Stain Result 1 (MELONY) - Final, Resulted 12/22/18 Gram Stain Result 2 (MELONY) - Final, Resulted Physical Exam HEENT: Neck Supple W Full Motion Chest: Symmetric LUNGS: Other (intubated) Heart: S1S2, RRR, other (distant heart tones) Abdomen: Other (soft) Neurology: other (sedated) Assessment Assessment 1. Pancreatic pseudocyst with obstruction of the stomach; s/p pancreatic pseudocystgastrostomy with cholecystectomy and G-tube placement 2. Acute respiratory failure s/p intubation 3. CAD s/p previous CABG and PCI/stent. Echo revealed preserved LV systolic functio 4. Hypertension with present hypotension. Remain on low-dose Dopamine 5. Anemia, hgb remains. low. s/p total 3 unit PRBCs 6. Hypokalemia, hypomagnesemia; replacement ongoing 7. Hyperlipidemia 8. AFIB; maintaining SR 9. Diabetes, II 10. Anasarca; albumin, Lasix Recommendations Titrate off pressor support as able. Monitor lytes, replace as warranted Supportive care On ASA with ongoing hgb drop ANN BRIGGS APRN Dec 24, 2018 11:51
[2018-12-24] MEDS: POTASSIUM CHL 20MEQ PREMIX 50 ML IV SCH ×2 (13:09→14:10)
--- NOTE | 2018-12-24 13:25 | PDOC ---
G I PROGRESS NOTE Subjective Sedated, on ventilator. Objective No reports of any catastrophic occurrences. Reviewed labs, imaging at [facility] via online. No gallstones on CT. No ultrasound done. Normal PIPIDA/GBEF (?). LFT's normal there, not suggestive of biliary pancreatitis. 2 CT's with pancreatic phlegmon. Physical Exam Lungs clear. RRR w/o murmur. Abdomen distended, silent. G-tube. MISTY with serosanguinous drainage. Review of Relevant I have reviewed the following items johanny (where applicable) has been applied. Labs Laboratory Tests Test 12/22/18 15:30 12/22/18 20:05 12/23/18 06:00 12/23/18 08:35 O2 Saturation % (92-99) 95 % (92-99) Arterial Blood pH 7.45 (7.35-7.45) 7.52 (7.35-7.45) Arterial Blood pCO2 at Patient Temp 38 mmHg (35-46) 31 mmHg (35-46) Arterial Blood pO2 at Patient Temp 84 mmHg (75-108) 79 mmHg (75-108) Arterial Blood HCO3 26 mmol/L (21-28) 25 mmol/L (21-28) Arterial Blood Base Excess 2 mmol/L (-3-3) 2 mmol/L (-3-3) FiO2 60 50 White Blood Count 5.9 x10^3/uL (4.0-11.0) 6.6 x10^3/uL (4.0-11.0) Red Blood Count 2.79 x10^6/uL (4.30-5.70) 3.04 x10^6/uL (4.30-5.70) Hemoglobin 7.0 g/dL (13.0-17.5) 7.5 g/dL (13.0-17.5) Hematocrit 22.1 % (39.0-53.0) 24.1 % (39.0-53.0) Mean Corpuscular Volume 80 fL (79-100) 79 fL (79-100) Mean Corpuscular Hemoglobin 25 pg (25-35) 25 pg (25-35) Mean Corpuscular Hemoglobin Concent 31 g/dL (31-37) 31 g/dL (31-37) Red Cell Distribution Width 19.4 % (11.5-14.5) 18.8 % (11.5-14.5) Platelet Count 203 x10^3/uL (140-400) 217 x10^3/uL (140-400) Neutrophils (%) (Auto) 80 % (31-73) 75 % (31-73) Lymphocytes (%) (Auto) 10 % (24-48) 12 % (24-48) Monocytes (%) (Auto) 9 % (0-9) 11 % (0-9) Eosinophils (%) (Auto) 1 % (0-3) 1 % (0-3) Basophils (%) (Auto) 1 % (0-3) 1 % (0-3) Neutrophils # (Auto) 4.7 x10^3uL (1.8-7.7) 5.0 x10^3uL (1.8-7.7) Lymphocytes # (Auto) 0.6 x10^3/uL (1.0-4.8) 0.8 x10^3/uL (1.0-4.8) Monocytes # (Auto) 0.5 x10^3/uL (0.0-1.1) 0.7 x10^3/uL (0.0-1.1) Eosinophils # (Auto) 0.1 x10^3/uL (0.0-0.7) 0.1 x10^3/uL (0.0-0.7) Basophils # (Auto) 0.0 x10^3/uL (0.0-0.2) 0.1 x10^3/uL (0.0-0.2) Nasal Screen MRSA (PCR) Negative (Negative) Sodium Level 142 mmol/L (136-145) Potassium Level 3.8 mmol/L (3.5-5.1) Chloride Level 106 mmol/L (98-107) Carbon Dioxide Level 28 mmol/L (21-32) Anion Gap 8 (6-14) Blood Urea Nitrogen 16 mg/dL (8-26) Creatinine 0.6 mg/dL (0.7-1.3) Estimated GFR (Cockcroft-Gault) 138.4 BUN/Creatinine Ratio 27 (6-20) Glucose Level 195 mg/dL (70-99) Calcium Level 7.6 mg/dL (8.5-10.1) Phosphorus Level 3.8 mg/dL (2.6-4.7) Magnesium Level 1.3 mg/dL (1.8-2.4) Total Bilirubin 2.3 mg/dL (0.2-1.0) Aspartate Amino Transf (AST/SGOT) 41 U/L (15-37) Alanine Aminotransferase (ALT/SGPT) 44 U/L (16-63) Alkaline Phosphatase 256 U/L (46-116) Total Protein 4.3 g/dL (6.4-8.2) Albumin 1.5 g/dL (3.4-5.0) Albumin/Globulin Ratio 0.5 (1.0-1.7) Triglycerides Level 46 mg/dL (0-150) Cholesterol Level < 50 mg/dL (0-200) LDL Cholesterol, Calculated 30 mg/dL (0-100) VLDL Cholesterol, Calculated 9 mg/dL (0-40) Non-HDL Cholesterol Calculated 39 mg/dL (0-129) HDL Cholesterol 11 mg/dL (40-60) Cholesterol/HDL Ratio Test 12/23/18 12:05 12/23/18 16:25 12/23/18 17:45 12/23/18 23:53 Glucose (Fingerstick) 180 mg/dL (70-99) 193 mg/dL (70-99) 233 mg/dL (70-99) QR-Kgt-I-Type Natriuretic Peptide 90 pg/mL (0-124) Test 12/24/18 06:26 12/24/18 06:30 12/24/18 08:00 12/24/18 12:01 Glucose (Fingerstick) 277 mg/dL (70-99) 296 mg/dL (70-99) White Blood Count 4.5 x10^3/uL (4.0-11.0) Red Blood Count 2.74 x10^6/uL (4.30-5.70) Hemoglobin 7.0 g/dL (13.0-17.5) Hematocrit 21.9 % (39.0-53.0) Mean Corpuscular Volume 80 fL (79-100) Mean Corpuscular Hemoglobin 26 pg (25-35) Mean Corpuscular Hemoglobin Concent 32 g/dL (31-37) Red Cell Distribution Width 18.9 % (11.5-14.5) Platelet Count 178 x10^3/uL (140-400) Neutrophils (%) (Auto) 70 % (31-73) Lymphocytes (%) (Auto) 13 % (24-48) Monocytes (%) (Auto) 14 % (0-9) Eosinophils (%) (Auto) 3 % (0-3) Basophils (%) (Auto) 1 % (0-3) Neutrophils # (Auto) 3.1 x10^3uL (1.8-7.7) Lymphocytes # (Auto) 0.6 x10^3/uL (1.0-4.8) Monocytes # (Auto) 0.6 x10^3/uL (0.0-1.1) Eosinophils # (Auto) 0.1 x10^3/uL (0.0-0.7) Basophils # (Auto) 0.0 x10^3/uL (0.0-0.2) Sodium Level 140 mmol/L (136-145) Potassium Level 3.0 mmol/L (3.5-5.1) Chloride Level 106 mmol/L (98-107) Carbon Dioxide Level 29 mmol/L (21-32) Anion Gap 5 (6-14) Blood Urea Nitrogen 15 mg/dL (8-26) Creatinine 0.5 mg/dL (0.7-1.3) Estimated GFR (Cockcroft-Gault) 170.8 BUN/Creatinine Ratio 30 (6-20) Glucose Level 289 mg/dL (70-99) Calcium Level 7.2 mg/dL (8.5-10.1) Phosphorus Level 2.4 mg/dL (2.6-4.7) Magnesium Level 1.6 mg/dL (1.8-2.4) Total Bilirubin 1.5 mg/dL (0.2-1.0) Aspartate Amino Transf (AST/SGOT) 18 U/L (15-37) Alanine Aminotransferase (ALT/SGPT) 21 U/L (16-63) Alkaline Phosphatase 171 U/L (46-116) Total Protein 4.1 g/dL (6.4-8.2) Albumin 1.4 g/dL (3.4-5.0) Albumin/Globulin Ratio 0.5 (1.0-1.7) O2 Saturation 94 % (92-99) Arterial Blood pH 7.43 (7.35-7.45) Arterial Blood pCO2 at Patient Temp 39 mmHg (35-46) Arterial Blood pO2 at Patient Temp 88 mmHg (75-108) Arterial Blood HCO3 25 mmol/L (21-28) Arterial Blood Base Excess 1 mmol/L (-3-3) FiO2 40 Laboratory Tests Test 12/23/18 16:25 12/23/18 17:45 12/23/18 23:53 12/24/18 06:26 FH-Gxe-O-Type Natriuretic Peptide 90 pg/mL (0-124) Glucose (Fingerstick) 193 mg/dL (70-99) 233 mg/dL (70-99) 277 mg/dL (70-99) Test 12/24/18 06:30 12/24/18 08:00 12/24/18 12:01 White Blood Count 4.5 x10^3/uL (4.0-11.0) Red Blood Count 2.74 x10^6/uL (4.30-5.70) Hemoglobin 7.0 g/dL (13.0-17.5) Hematocrit 21.9 % (39.0-53.0) Mean Corpuscular Volume 80 fL (79-100) Mean Corpuscular Hemoglobin 26 pg (25-35) Mean Corpuscular Hemoglobin Concent 32 g/dL (31-37) Red Cell Distribution Width 18.9 % (11.5-14.5) Platelet Count 178 x10^3/uL (140-400) Neutrophils (%) (Auto) 70 % (31-73) Lymphocytes (%) (Auto) 13 % (24-48) Monocytes (%) (Auto) 14 % (0-9) Eosinophils (%) (Auto) 3 % (0-3) Basophils (%) (Auto) 1 % (0-3) Neutrophils # (Auto) 3.1 x10^3uL (1.8-7.7) Lymphocytes # (Auto) 0.6 x10^3/uL (1.0-4.8) Monocytes # (Auto) 0.6 x10^3/uL (0.0-1.1) Eosinophils # (Auto) 0.1 x10^3/uL (0.0-0.7) Basophils # (Auto) 0.0 x10^3/uL (0.0-0.2) Sodium Level 140 mmol/L (136-145) Potassium Level 3.0 mmol/L (3.5-5.1) Chloride Level 106 mmol/L (98-107) Carbon Dioxide Level 29 mmol/L (21-32) Anion Gap 5 (6-14) Blood Urea Nitrogen 15 mg/dL (8-26) Creatinine 0.5 mg/dL (0.7-1.3) Estimated GFR (Cockcroft-Gault) 170.8 BUN/Creatinine Ratio 30 (6-20) Glucose Level 289 mg/dL (70-99) Calcium Level 7.2 mg/dL (8.5-10.1) Phosphorus Level 2.4 mg/dL (2.6-4.7) Magnesium Level 1.6 mg/dL (1.8-2.4) Total Bilirubin 1.5 mg/dL (0.2-1.0) Aspartate Amino Transf (AST/SGOT) 18 U/L (15-37) Alanine Aminotransferase (ALT/SGPT) 21 U/L (16-63) Alkaline Phosphatase 171 U/L (46-116) Total Protein 4.1 g/dL (6.4-8.2) Albumin 1.4 g/dL (3.4-5.0) Albumin/Globulin Ratio 0.5 (1.0-1.7) O2 Saturation 94 % (92-99) Arterial Blood pH 7.43 (7.35-7.45) Arterial Blood pCO2 at Patient Temp 39 mmHg (35-46) Arterial Blood pO2 at Patient Temp 88 mmHg (75-108) Arterial Blood HCO3 25 mmol/L (21-28) Arterial Blood Base Excess 1 mmol/L (-3-3) FiO2 40 Glucose (Fingerstick) 296 mg/dL (70-99) Microbiology 12/22/18 Anaerobic/Aerobic Culture, Resulted Pending 12/22/18 Anaerobic Culture Result 1 (MELONY), Resulted Pending 12/22/18 Aerobic Culture, Resulted Pending 12/22/18 Aerobic Culture Result 1 (MELONY), Resulted Pending 12/22/18 Gram Stain - Final, Resulted 12/22/18 Gram Stain Result 1 (MELONY) - Final, Resulted 12/22/18 Gram Stain Result 2 (MELONY) - Final, Resulted LFT's down some. Vitals/I & O Vital Sign - Last 24 Hours 12/23/18 12/23/18 12/23/18 12/23/18 13:43 14:00 14:00 15:00 Temp 99.4 99.4 99.4 99.4 Pulse 84 84 85 Resp 18 18 18 B/P (MAP) 115/47 (69) 115/87 103/46 (65) Pulse Ox 91 92 93 O2 Delivery Ventilator Ventilator Ventilator 12/23/18 12/23/18 12/23/18 12/23/18 16:00 16:00 16:00 16:23 Temp 100.8 100.8 Pulse 84 83 Resp 18 B/P (MAP) 116/48 (70) 116/48 (70) Pulse Ox 94 91 O2 Delivery Ventilator Mechanical Ventilator Ventilator 12/23/18 12/23/18 12/23/18 12/23/18 16:50 17:00 17:20 18:00 Pulse 89 91 Resp 18 18 18 18 B/P (MAP) 130/50 (76) 123/45 (71) Pulse Ox 92 93 94 92 O2 Delivery Ventilator Ventilator Ventilator Ventilator 12/23/18 12/23/18 12/23/18 12/23/18 18:22 19:00 20:00 20:00 Temp 99.1 99.1 Pulse 90 86 86 Resp 18 18 B/P (MAP) 112/44 (66) 100/44 (62) 100/44 (62) Pulse Ox 91 92 92 O2 Delivery Ventilator Ventilator Ventilator 12/23/18 12/23/18 12/23/18 12/23/18 20:00 20:01 21:00 22:00 Pulse 90 86 Resp 18 18 B/P (MAP) 116/46 (69) 118/47 (70) Pulse Ox 93 93 93 O2 Delivery Mechanical Ventilator Ventilator Ventilator Ventilator 12/23/18 12/23/18 12/23/18 12/24/18 23:00 23:08 23:59 00:00 Temp 101.4 101.4 Pulse 88 85 Resp 18 18 B/P (MAP) 114/44 (67) 119/45 (69) Pulse Ox 92 92 93 O2 Delivery Ventilator Ventilator Mechanical Ventilator Ventilator 12/24/18 12/24/18 12/24/18 12/24/18 00:00 01:00 01:29 02:00 Pulse 88 88 88 Resp 18 18 B/P (MAP) 114/44 (67) 116/42 (66) 120/44 (69) Pulse Ox 93 93 94 O2 Delivery Ventilator Ventilator Ventilator 12/24/18 12/24/18 12/24/18 12/24/18 03:00 03:21 04:00 04:00 Temp 100.1 100.1 Pulse 85 85 Resp 18 18 B/P (MAP) 127/46 (73) 135/44 (74) Pulse Ox 94 94 94 O2 Delivery Ventilator Ventilator Mechanical Ventilator Ventilator 12/24/18 12/24/18 12/24/18 12/24/18 04:00 05:00 06:00 06:00 Pulse 88 85 81 Resp 18 18 B/P (MAP) 135/49 (77) 124/44 (70) 150/52 (84) Pulse Ox 94 95 96 O2 Delivery Ventilator Ventilator Ventilator 12/24/18 12/24/18 12/24/18 12/24/18 07:00 08:00 08:00 08:00 Temp 98.7 98.7 Pulse 80 79 79 Resp 18 18 B/P (MAP) 138/48 (78) 124/49 (74) 124/49 (74) Pulse Ox 95 96 O2 Delivery Ventilator Ventilator Mechanical Ventilator 12/24/18 12/24/18 12/24/18 12/24/18 08:40 09:00 10:00 10:40 Pulse 91 78 Resp 18 18 B/P (MAP) 181/64 (103) 105/41 (62) Pulse Ox 97 96 92 94 O2 Delivery Ventilator Ventilator Ventilator Ventilator 12/24/18 12/24/18 12/24/18 12/24/18 11:00 11:42 11:51 12:28 Temp 98.7 98.7 Pulse 78 77 Resp 18 17 B/P (MAP) 118/44 (68) 126/46 Pulse Ox 96 97 O2 Delivery Ventilator Mechanical Ventilator Ventilator 12/24/18 12/24/18 12:45 13:17 Temp 99.0 99.0 Pulse 76 76 Resp 18 18 B/P (MAP) 122/43 152/54 Intake and Output 12/23/18 12/23/18 12/24/18 15:00 23:00 07:00 Intake Total 735 ml 1546 ml 2112.7 ml Output Total 1815 ml 1815 ml 1870 ml Balance -1080 ml -269 ml 242.7 ml Problem List H/o necrotizing pancreatitis with pseudocyst(s), s/p cystogastrostomy, cholecystectomy. Remains critical, but stable. Drop in hemoglobin noted; to get transfused. Assessment Continue support, post-op care. JUSTIN RIVERA MD Dec 24, 2018 13:25
[2018-12-24] MEDS: TPN PER PHARMACY MC PRN (13:55)
--- NOTE | 2018-12-24 13:56 | NUR ---
Pharmacy TPN Dosing Note S: JUSTIN OLSEN is a 58 year old M Currently receiving Central Continuous TPN started B:Pertinent PMH: PANCREATITIS Height: 6 feet, 0 inches Weight: 115.218954 kg Current diet: NPO LABS: Sodium: 142 Potassium: 3.0 Chloride: 106 Calcium: 7.2 Corrected Calcium: 9.28 Magnesium: 1.6 CO2: 29 SCr: 0.5 Glucose: 296 Albumin: 1.4 AST: 18 ALT: 21 TPN FORMULA: TPN TYPE: Central Continuous AMINO ACIDS: 100 gm DEXTROSE: 375 gm LIPIDS: 30 gm SODIUM CHLORIDE: 110 mEq SODIUM ACETATE: 12 mEq SODIUM PHOSPHATE: mmol POTASSIUM CHLORIDE: 50 mEq POTASSIUM ACETATE: mEq POTASSIUM PHOSPHATE: 20 mmol MAGNESIUM: 20 mEq CALCIUM: 9.3 mEq INSULIN: 80 units MULTIPLE VITAMIN: 10 ml TRACE ELEMENTS: 1 ml(s) TPN PLAN: -Pt was on care home TPN over at [facility] -Pt noted to have 3rd spacing, but lungs are clear and has good urine outpt, will not alter volume -Potassium and phos both low this am; given boluses of both Kphos and KCl, will increase KCL and add KPhos to TPN tonight -Mag still low 1.6, another 2gm bolus this morning, and increase for tonight -labs in the am R: Continue TPN as written above. Will monitor electrolytes, glucose, and tolerance to TPN. ANN STEINBERG [facility], 12/24/18 [id number]
--- NOTE | 2018-12-24 14:08 | PATHOLOGY ---
Note [facility] Accession Number: [id number] TESTS RESULT FLAG UNITS REF RANGE LAB Clinician Provided Cytology Information No. of containers..01 Other (Miscellaneous) Source: PSUEDO CYST FLUID DIAGNOSIS: 02 PSUEDOCYST FLUID NEGATIVE FOR MALIGNANT CELLS. SCANT CELLULARITY. AMORPHOUS CYST DEBRIS, FEW INFLAMMATORY CELLS AND HISTIOCYTES, HEMOSIDERIN AND BILE CONSISTENT WITH PSEUDOCYST CONTENTS. Signed out by: 02 Blaise Garcia MD, Pathologist NPI- [id number] Performed by: Morales Peck, Heater Planer Operator ([facility]) Gross description: 01 5ML, BROWN, CLOUDY /LCS FLAG LEGEND: L-Low Normal,H-High Normal,LL-Alert Low,HH-Alert High <-Panic Low,>-Panic High,A-Abnormal,AA-Critical Abnormal Performed at: [address] [place] [address] Deandre Austin MD, 02 [facility] [address] [place] [address] Blaise Garcia MD, Specimen Comment: A courtesy copy of this report has been sent to Specimen Comment: [phone]. Specimen Comment: Report sent to Specimen Comment: A duplicate report has been generated due to demographic updates. Performed at: [address] [place] [address] [address], [place], [place] [id number] MD Deandre Austin MD Phone: [phone]
[2018-12-24] MEDS: MIDAZOLAM 100mg/100ml NS BAG 100 ML IV PRN (17:19)
[2018-12-24] MEDS: MORPHINE SULFATE/PF 30 ML IV PRN (17:59)
[2018-12-24] MEDS: IV NORMAL SALINE 1000ML BAG 1,000 ML IV SCH (21:00)
[2018-12-24] MEDS ORDERED: TOTAL PARENTERAL NUTRITION IV SCH ×12 (22:00)
[2018-12-24] MEDS ORDERED: AMINO ACID IV SCH ×12 (22:00)
[2018-12-24] MEDS ORDERED: [UNRECOGNIZED DRUG - OTHER] IV SCH ×12 (22:00)
[2018-12-24] MEDS ORDERED: DEXTROSE 70% IV SCH ×12 (22:00)
[2018-12-25] VITALS (27 sets, daily range): BP systolic 108–152; BP diastolic 45–64
[2018-12-25] MEDS: IV RINGERS,LACTATED 1000ML 1,000 ML IV SCH ×3 (00:38→07:08)
[2018-12-25] MEDS: PIPERACILLIN/TAZOBACTAM 3.375 GM in IV NORMAL SALINE 50ML 50 ML IV SCH ×2 (00:39→06:13)
[2018-12-25] MEDS: INSULIN LISPRO 300 UNITS/3 ML INSULN.PEN. SQ SCH ×4 (01:12→17:44)
[2018-12-25 06:31] LABS: BASO % 0 % (0-3); EOS # 0.1 x10^3/uL (0.0-0.7); EOS % 4 % (0-3); HEMATOCRIT 21.2 % (39.0-53.0); LYMPH # 0.4 x10^3/uL (1.0-4.8); LYMPH % 15 % (24-48); MEAN CORPUSCULAR HEMOGLOBIN 27 pg (25-35); MEAN CORPUSCULAR HGB CONC 33 g/dL (31-37); MEAN CORPUSCULAR VOLUME 81 fL (79-100); MONO # 0.4 x10^3/uL (0.0-1.1); MONO % 15 % (0-9); NEUT # 1.9 x10^3uL (1.8-7.7); NEUT % 66 % (31-73); PLATELET COUNT 135 x10^3/uL (140-400); RED CELL DISTRIBUTION WIDTH 18.8 % (11.5-14.5); WHITE BLOOD COUNT 2.9 x10^3/uL (4.0-11.0)
[2018-12-25 06:46] LABS: ALBUMIN 1.3 g/dL (3.4-5.0); ALBUMIN/GLOBULIN RATIO 0.5 (1.0-1.7); CALCIUM 7.2 mg/dL (8.5-10.1); CREATININE 0.4 mg/dL (0.7-1.3); GFR 220.9; MAGNESIUM 1.7 mg/dL (1.8-2.4); PHOSPHORUS 3.1 mg/dL (2.6-4.7); POTASSIUM 3.4 mmol/L (3.5-5.1); TOTAL BILIRUBIN 0.7 mg/dL (0.2-1.0); TOTAL PROTEIN 3.8 g/dL (6.4-8.2)
[2018-12-25 06:47] LABS: HEMOGLOBIN 6.9 g/dL (13.0-17.5)
[2018-12-25 08:05] LABS: BASE EXCESS ABG 2 mmol/L (-3-3); HCO3 ABG 27 mmol/L (21-28); PCO2 ABG 42 mmHg (35-46); PO2 ABG 85 mmHg (75-108); SAT O2 ABG 95 % (92-99)
[2018-12-25] MEDS: PANTOPRAZOLE IV PUSH 40 MG VIAL. IVP SCH (08:25)
--- NOTE | 2018-12-25 08:39 | NUR ---
SS following up with discharge planning. SS phoned and faxed clinical updates to [facility], ; fax [phone].
[2018-12-25 08:41] LABS: FIO2 ABG 40
[2018-12-25] MEDS: CHLORHEXIDINE 0.12% 15 ML MOUTHWASH. MM SCH ×2 (08:41→21:12)
[2018-12-25] MEDS: ENOXAPARIN 40 MG/0.4 ML SYRINGE. SQ SCH (09:00)
--- NOTE | 2018-12-25 09:02 | PDOC ---
Infectious Disease Note Subjective: Subjective remains intubated Currently afebrile off dopamine awaiting PRBC J drain output improving ROS: ROS unable to obtain Vital Signs: Vital Signs Vital Signs Date Time Temp Pulse Resp B/P (MAP) Pulse Ox O2 Delivery O2 Flow Rate FiO2 12/25/18 07:53 98 Ventilator 12/25/18 07:00 97.7 68 19 125/47 (73) 97.7 Physical Exam: PHYSICAL EXAM GENERAL: Intubated, sedated lying comfortably. HEENT: ETT and OGT in place. Anicteric. NECK: Supple. LUNGS: Decreased breath sounds at the bases. Few crackles. HEART: S1 and S2. No gallops or murmurs. ABDOMEN: Obese. Bowel sounds present. G-drain in place. MISTY drain in place. Dressing present intact and dry. rollins in place ,scrotal swelling EXTREMITIES: Gen edema. DERMATOLOGICAL: Multiple tattoos. Warm and dry. No generalized rash. CENTRAL NERVOUS SYSTEM: Sedated and intubated. PSYCHIATRIC: Sedated and intubated. LINES: Right upper extremity PICC line ( POA) looks okay.Rt IJ ( 12/22) looks clean Medications: Inpatient Meds: Current Medications Medications (Trade) Dose Ordered Sig/Nicola Start Time Stop Time Status Last Admin Dose Admin Albumin Human 100 ml @ 100 mls/hr 1X ONCE 12/24/18 11:15 12/24/18 12:14 DC 12/24/18 12:41 100 MLS/HR Bisacodyl (Dulcolax Supp) 10 mg STK-MED ONCE 12/22/18 07:03 12/22/18 08:05 DC Bupivacaine HCl/ Epinephrine Bitart (Sensorcain-Mpf Epi 0.5%-1:404250) 30 ml STK-MED ONCE 12/22/18 07:03 12/22/18 08:05 DC 12/22/18 12:23 5 ML Cefazolin Sodium/ Dextrose (Ancef 2gm Premix) 2 gm STK-MED ONCE 12/22/18 12:00 12/23/18 12:38 DC Cellulose (Surgicel Hemostat 4x8) 1 each STK-MED ONCE 12/22/18 07:03 12/22/18 08:05 DC 12/22/18 13:58 1 EACH Chlorhexidine Gluconate (Peridex) 15 ml BID 12/22/18 21:00 12/25/18 08:41 15 ML Dexamethasone Sodium Phosphate (Decadron) 20 mg STK-MED ONCE 12/22/18 09:59 12/22/18 10:00 DC Dopamine HCl/ Dextrose 250 ml @ 8.686 mls/ hr CONT PRN 12/22/18 17:45 12/24/18 21:56 21.714 MLS/HR Enoxaparin Sodium (Lovenox 40mg Syringe) 40 mg Q24H 12/23/18 09:00 12/24/18 08:25 40 MG Ephedrine Sulfate (Akovaz) 50 mg STK-MED ONCE 12/22/18 13:52 12/22/18 13:53 DC Ephedrine Sulfate (ePHEDrine PF IN SALINE SYRINGE) 50 mg STK-MED ONCE 12/22/18 14:29 12/22/18 14:30 DC Famotidine (Pepcid Vial) 20 mg STK-MED ONCE 12/22/18 09:59 12/22/18 10:00 DC Fentanyl Citrate (Fentanyl 2ml Vial) 100 mcg STK-MED ONCE 12/22/18 10:01 12/22/18 10:02 DC Furosemide (Lasix) 20 mg 1X ONCE 12/24/18 11:15 12/24/18 11:19 DC 12/24/18 13:03 20 MG Glycopyrrolate (Robinul) 1 mg STK-MED ONCE 12/22/18 12:28 12/22/18 12:29 DC Heparin Sodium (Porcine) 1000 unit/Sodium Chloride 1,001 ml @ 1,001 mls/hr 1X ONCE 12/22/18 06:00 12/22/18 06:59 DC 12/22/18 12:56 Hydromorphone HCl (Dilaudid) 0.5 mg PRN Q10MIN PRN 12/22/18 07:00 12/22/18 19:00 DC Ibuprofen (Motrin) 200 mg 1X PREOP 12/22/18 08:00 12/23/18 12:33 DC Info (Tpn Per Pharmacy) 1 each PRN DAILY PRN 12/23/18 09:15 12/24/18 13:55 1 EACH Insulin Human Lispro (HumaLOG) 0-8 UNITS Q6HRS 12/23/18 12:00 12/25/18 06:19 3 UNITS Iohexol (Omnipaque 300 Mg/ml) 100 ml STK-MED ONCE 12/22/18 07:03 12/22/18 08:05 DC 12/22/18 12:24 100 ML Lidocaine HCl (Lidocaine Pf 2% Vial) 5 ml STK-MED ONCE 12/22/18 09:59 12/22/18 10:00 DC Linezolid/Dextrose 300 ml @ 300 mls/hr Q12HR 12/24/18 09:00 12/25/18 08:41 300 MLS/HR Magnesium Sulfate 50 ml @ 25 mls/hr 1X ONCE 12/24/18 10:30 12/24/18 12:29 DC 12/24/18 10:34 25 MLS/HR Magnesium Sulfate/ Dextrose 100 ml @ 25 mls/hr 1X ONCE 12/23/18 09:00 12/23/18 12:59 UNV Metronidazole 100 ml @ 100 mls/hr Q12HR 12/22/18 21:00 12/25/18 08:41 100 MLS/HR Midazolam HCl 100 ml @ 0 mls/hr CONT PRN 12/22/18 15:30 12/24/18 17:19 5 MLS/HR Midazolam HCl (Versed) 2 mg STK-MED ONCE 12/22/18 10:00 12/22/18 10:01 DC Morphine Sulfate 30 ml @ 0 mls/hr CONT PRN PRN 12/22/18 18:30 12/24/18 17:59 1 MLS/HR Morphine Sulfate (Morphine Sulfate) 1 mg PRN Q10MIN PRN 12/22/18 07:00 12/22/18 19:00 DC Naloxone HCl (Narcan) 0.4 mg PRN Q2MIN PRN 12/22/18 14:45 Neostigmine Methylsulfate (Neostigmine Methylsulfate) 5 mg STK-MED ONCE 12/22/18 12:29 12/22/18 12:30 DC Ondansetron HCl (Zofran) 4 mg PRN Q6HRS PRN 12/22/18 14:45 Pantoprazole Sodium (PROTONIX VIAL for IV PUSH) 40 mg DAILYAC 12/23/18 10:30 12/25/18 08:25 40 MG Phenylephrine HCl (Jeromy-Synephrine Inj) 10 mg STK-MED ONCE 12/22/18 12:49 12/22/18 12:50 DC Phenylephrine HCl (PHENYLEPHRINE in 0.9% NACL PF) 1 mg STK-MED ONCE 12/22/18 12:39 12/22/18 12:40 DC Piperacillin Sod/ Tazobactam Sod 3.375 gm/Sodium Chloride 50 ml @ 100 mls/hr Q6HRS 12/23/18 18:00 12/25/18 06:13 100 MLS/HR Potassium Chloride/Water 50 ml @ 50 mls/hr Q1H 12/24/18 13:30 12/24/18 15:29 DC 12/24/18 14:10 50 MLS/HR Potassium Phosphate 10 mmol/ Dextrose 103.3333 ml @ 51.667 m... Q2H 12/24/18 10:30 12/24/18 14:29 DC 12/24/18 13:02 51.667 MLS/HR Prochlorperazine Edisylate (Compazine) 5 mg PACU PRN PRN 12/22/18 07:00 12/22/18 19:00 DC Propofol 20 ml @ As Directed STK-MED ONCE 12/22/18 09:59 12/22/18 10:00 DC Ringer's Solution 1,000 ml @ 100 mls/hr Q10H 12/22/18 16:00 12/25/18 07:08 100 MLS/HR Rocuronium [place] (Zemuron) 50 mg STK-MED ONCE 12/22/18 13:52 12/22/18 13:53 DC Sevoflurane (Ultane) 90 ml STK-MED ONCE 12/22/18 12:35 12/22/18 12:36 DC Sodium Chloride (Normal Saline Flush) 3 ml QSHIFT PRN 12/22/18 14:45 Sodium Chloride 110 meq/Sodium Acetate 12 meq/ Potassium Chloride 36 meq/ Magnesium Sulfate 12 meq/Calcium Gluconate 9.3 meq/ Multivitamins 10 ml/Chromium/ Copper/Manganese/ Seleni/Zn 1 ml/ Insulin Human Regular 70 unit/ Total Parenteral Nutrition/Amino Acids/Dextrose/ Fat Emulsion Intravenous 2,400 ml @ 100 mls/hr TPN CONT 12/23/18 22:00 12/24/18 21:59 DC 12/23/18 22:15 100 MLS/HR Sodium Chloride 110 meq/Sodium Acetate 12 meq/ Potassium Chloride 50 meq/ Potassium Phosphate 20 mmol/ Magnesium Sulfate 20 meq/Calcium Gluconate 9.3 meq/ Multivitamins 10 ml/Chromium/ Copper/Manganese/ Seleni/Zn 1 ml/ Insulin Human Regular 80 unit/ Total Parenteral Nutrition/Amino Acids/Dextro... 2,400 ml @ 100 mls/hr TPN CONT 12/24/18 22:00 12/25/18 21:59 12/24/18 23:24 100 MLS/HR Labs: Lab Laboratory Tests Test 12/24/18 12:01 12/24/18 17:34 12/25/18 01:01 12/25/18 06:00 Glucose (Fingerstick) 296 mg/dL (70-99) 245 mg/dL (70-99) 260 mg/dL (70-99) White Blood Count 2.9 x10^3/uL (4.0-11.0) Red Blood Count 2.60 x10^6/uL (4.30-5.70) Hemoglobin 6.9 g/dL (13.0-17.5) Hematocrit 21.2 % (39.0-53.0) Mean Corpuscular Volume 81 fL (79-100) Mean Corpuscular Hemoglobin 27 pg (25-35) Mean Corpuscular Hemoglobin Concent 33 g/dL (31-37) Red Cell Distribution Width 18.8 % (11.5-14.5) Platelet Count 135 x10^3/uL (140-400) Neutrophils (%) (Auto) 66 % (31-73) Lymphocytes (%) (Auto) 15 % (24-48) Monocytes (%) (Auto) 15 % (0-9) Eosinophils (%) (Auto) 4 % (0-3) Basophils (%) (Auto) 0 % (0-3) Neutrophils # (Auto) 1.9 x10^3uL (1.8-7.7) Lymphocytes # (Auto) 0.4 x10^3/uL (1.0-4.8) Monocytes # (Auto) 0.4 x10^3/uL (0.0-1.1) Eosinophils # (Auto) 0.1 x10^3/uL (0.0-0.7) Basophils # (Auto) 0.0 x10^3/uL (0.0-0.2) Sodium Level 138 mmol/L (136-145) Potassium Level 3.4 mmol/L (3.5-5.1) Chloride Level 105 mmol/L (98-107) Carbon Dioxide Level 29 mmol/L (21-32) Anion Gap 4 (6-14) Blood Urea Nitrogen 13 mg/dL (8-26) Creatinine 0.4 mg/dL (0.7-1.3) Estimated GFR (Cockcroft-Gault) 220.9 BUN/Creatinine Ratio 33 (6-20) Glucose Level 249 mg/dL (70-99) Calcium Level 7.2 mg/dL (8.5-10.1) Phosphorus Level 3.1 mg/dL (2.6-4.7) Magnesium Level 1.7 mg/dL (1.8-2.4) Total Bilirubin 0.7 mg/dL (0.2-1.0) Aspartate Amino Transf (AST/SGOT) 11 U/L (15-37) Alanine Aminotransferase (ALT/SGPT) 16 U/L (16-63) Alkaline Phosphatase 130 U/L (46-116) Total Protein 3.8 g/dL (6.4-8.2) Albumin 1.3 g/dL (3.4-5.0) Albumin/Globulin Ratio 0.5 (1.0-1.7) Test 12/25/18 06:10 12/25/18 08:00 Glucose (Fingerstick) 221 mg/dL (70-99) O2 Saturation 95 % (92-99) Arterial Blood pH 7.42 (7.35-7.45) Arterial Blood pCO2 at Patient Temp 42 mmHg (35-46) Arterial Blood pO2 at Patient Temp 85 mmHg (75-108) Arterial Blood HCO3 27 mmol/L (21-28) Arterial Blood Base Excess 2 mmol/L (-3-3) FiO2 40 Objective: Assessment: 1. Severe cholecystitis, status post cholecystectomy, 12/22/2018. 2. Large pancreatic pseudocyst, status post open pancreatic pseudocyst gastrostomy, open cholecystectomy and gastrostomy tube placement on 12/22/2018. 3. Anemia, likely postop blood loss.S/P PRBC transfusion 4. Acute respiratory failure postop intubated. 5. History of heavy alcohol dependence. 6. Systolic congestive heart failure. 7. Coronary artery disease, status post coronary artery bypass graft. 8. Acute metabolic encephalopathy. 9. History of fall with nasal fracture. 10. History of atrial fibrillation. 11. Severe protein-calorie malnutrition. 12. Obesity hypoventilation syndrome, likely obstructive sleep apnea, has bilevel positive airway pressure at night. 13. Leucopenia , Mild thrombocytopenia ? cult neg, ? drug induced, though zyvox was started on 12/24 Plan: Plan of Care DC Jessica,Zyvox start merrem Follow up labs and cultures. Continue supportive care. Discussed with RN. ABIGAIL COY MD Dec 25, 2018 09:02
[2018-12-25] MEDS: MIDAZOLAM 100mg/100ml NS BAG 100 ML IV PRN (09:27)
[2018-12-25] MEDS ORDERED: MAGNESIUM SULFATE 2GM 50 ML IV ONE (09:30)
--- NOTE | 2018-12-25 09:30 | PDOC ---
PULMONARY PROGRESS NOTES Subjective PT SEDATED ON PRESSORS AC MODE Vitals Vital Signs Date Time Temp Pulse Resp B/P (MAP) Pulse Ox O2 Delivery O2 Flow Rate FiO2 12/25/18 09:00 67 17 146/57 (86) 98 Ventilator 12/25/18 07:00 97.7 97.7 ROS: No Nausea Lungs: Crackles Cardiovascular: S1, S2 Abdomen: Soft, Other (G TUBE) Extremities: Other (EDEMA) Skin: Warm Labs Laboratory Tests Test 12/23/18 12:05 12/23/18 16:25 12/23/18 17:45 12/23/18 23:53 Glucose (Fingerstick) 180 mg/dL (70-99) 193 mg/dL (70-99) 233 mg/dL (70-99) [id number] Natriuretic Peptide 90 pg/mL (0-124) Test 12/24/18 06:26 12/24/18 06:30 12/24/18 08:00 12/24/18 12:01 Glucose (Fingerstick) 277 mg/dL (70-99) 296 mg/dL (70-99) White Blood Count 4.5 x10^3/uL (4.0-11.0) Red Blood Count 2.74 x10^6/uL (4.30-5.70) Hemoglobin 7.0 g/dL (13.0-17.5) Hematocrit 21.9 % (39.0-53.0) Mean Corpuscular Volume 80 fL (79-100) Mean Corpuscular Hemoglobin 26 pg (25-35) Mean Corpuscular Hemoglobin Concent 32 g/dL (31-37) Red Cell Distribution Width 18.9 % (11.5-14.5) Platelet Count 178 x10^3/uL (140-400) Neutrophils (%) (Auto) 70 % (31-73) Lymphocytes (%) (Auto) 13 % (24-48) Monocytes (%) (Auto) 14 % (0-9) Eosinophils (%) (Auto) 3 % (0-3) Basophils (%) (Auto) 1 % (0-3) Neutrophils # (Auto) 3.1 x10^3uL (1.8-7.7) Lymphocytes # (Auto) 0.6 x10^3/uL (1.0-4.8) Monocytes # (Auto) 0.6 x10^3/uL (0.0-1.1) Eosinophils # (Auto) 0.1 x10^3/uL (0.0-0.7) Basophils # (Auto) 0.0 x10^3/uL (0.0-0.2) Sodium Level 140 mmol/L (136-145) Potassium Level 3.0 mmol/L (3.5-5.1) Chloride Level 106 mmol/L (98-107) Carbon Dioxide Level 29 mmol/L (21-32) Anion Gap 5 (6-14) Blood Urea Nitrogen 15 mg/dL (8-26) Creatinine 0.5 mg/dL (0.7-1.3) Estimated GFR (Cockcroft-Gault) 170.8 BUN/Creatinine Ratio 30 (6-20) Glucose Level 289 mg/dL (70-99) Calcium Level 7.2 mg/dL (8.5-10.1) Phosphorus Level 2.4 mg/dL (2.6-4.7) Magnesium Level 1.6 mg/dL (1.8-2.4) Total Bilirubin 1.5 mg/dL (0.2-1.0) Aspartate Amino Transf (AST/SGOT) 18 U/L (15-37) Alanine Aminotransferase (ALT/SGPT) 21 U/L (16-63) Alkaline Phosphatase 171 U/L (46-116) Total Protein 4.1 g/dL (6.4-8.2) Albumin 1.4 g/dL (3.4-5.0) Albumin/Globulin Ratio 0.5 (1.0-1.7) O2 Saturation 94 % (92-99) Arterial Blood pH 7.43 (7.35-7.45) Arterial Blood pCO2 at Patient Temp 39 mmHg (35-46) Arterial Blood pO2 at Patient Temp 88 mmHg (75-108) Arterial Blood HCO3 25 mmol/L (21-28) Arterial Blood Base Excess 1 mmol/L (-3-3) FiO2 40 Test 12/24/18 17:34 12/25/18 01:01 12/25/18 06:00 12/25/18 06:10 Glucose (Fingerstick) 245 mg/dL (70-99) 260 mg/dL (70-99) 221 mg/dL (70-99) White Blood Count 2.9 x10^3/uL (4.0-11.0) Red Blood Count 2.60 x10^6/uL (4.30-5.70) Hemoglobin 6.9 g/dL (13.0-17.5) Hematocrit 21.2 % (39.0-53.0) Mean Corpuscular Volume 81 fL (79-100) Mean Corpuscular Hemoglobin 27 pg (25-35) Mean Corpuscular Hemoglobin Concent 33 g/dL (31-37) Red Cell Distribution Width 18.8 % (11.5-14.5) Platelet Count 135 x10^3/uL (140-400) Neutrophils (%) (Auto) 66 % (31-73) Lymphocytes (%) (Auto) 15 % (24-48) Monocytes (%) (Auto) 15 % (0-9) Eosinophils (%) (Auto) 4 % (0-3) Basophils (%) (Auto) 0 % (0-3) Neutrophils # (Auto) 1.9 x10^3uL (1.8-7.7) Lymphocytes # (Auto) 0.4 x10^3/uL (1.0-4.8) Monocytes # (Auto) 0.4 x10^3/uL (0.0-1.1) Eosinophils # (Auto) 0.1 x10^3/uL (0.0-0.7) Basophils # (Auto) 0.0 x10^3/uL (0.0-0.2) Sodium Level 138 mmol/L (136-145) Potassium Level 3.4 mmol/L (3.5-5.1) Chloride Level 105 mmol/L (98-107) Carbon Dioxide Level 29 mmol/L (21-32) Anion Gap 4 (6-14) Blood Urea Nitrogen 13 mg/dL (8-26) Creatinine 0.4 mg/dL (0.7-1.3) Estimated GFR (Cockcroft-Gault) 220.9 BUN/Creatinine Ratio 33 (6-20) Glucose Level 249 mg/dL (70-99) Calcium Level 7.2 mg/dL (8.5-10.1) Phosphorus Level 3.1 mg/dL (2.6-4.7) Magnesium Level 1.7 mg/dL (1.8-2.4) Total Bilirubin 0.7 mg/dL (0.2-1.0) Aspartate Amino Transf (AST/SGOT) 11 U/L (15-37) Alanine Aminotransferase (ALT/SGPT) 16 U/L (16-63) Alkaline Phosphatase 130 U/L (46-116) Total Protein 3.8 g/dL (6.4-8.2) Albumin 1.3 g/dL (3.4-5.0) Albumin/Globulin Ratio 0.5 (1.0-1.7) Test 12/25/18 08:00 O2 Saturation 95 % (92-99) Arterial Blood pH 7.42 (7.35-7.45) Arterial Blood pCO2 at Patient Temp 42 mmHg (35-46) Arterial Blood pO2 at Patient Temp 85 mmHg (75-108) Arterial Blood HCO3 27 mmol/L (21-28) Arterial Blood Base Excess 2 mmol/L (-3-3) FiO2 40 Laboratory Tests Test 12/24/18 12:01 12/24/18 17:34 12/25/18 01:01 12/25/18 06:00 Glucose (Fingerstick) 296 mg/dL (70-99) 245 mg/dL (70-99) 260 mg/dL (70-99) White Blood Count 2.9 x10^3/uL (4.0-11.0) Red Blood Count 2.60 x10^6/uL (4.30-5.70) Hemoglobin 6.9 g/dL (13.0-17.5) Hematocrit 21.2 % (39.0-53.0) Mean Corpuscular Volume 81 fL (79-100) Mean Corpuscular Hemoglobin 27 pg (25-35) Mean Corpuscular Hemoglobin Concent 33 g/dL (31-37) Red Cell Distribution Width 18.8 % (11.5-14.5) Platelet Count 135 x10^3/uL (140-400) Neutrophils (%) (Auto) 66 % (31-73) Lymphocytes (%) (Auto) 15 % (24-48) Monocytes (%) (Auto) 15 % (0-9) Eosinophils (%) (Auto) 4 % (0-3) Basophils (%) (Auto) 0 % (0-3) Neutrophils # (Auto) 1.9 x10^3uL (1.8-7.7) Lymphocytes # (Auto) 0.4 x10^3/uL (1.0-4.8) Monocytes # (Auto) 0.4 x10^3/uL (0.0-1.1) Eosinophils # (Auto) 0.1 x10^3/uL (0.0-0.7) Basophils # (Auto) 0.0 x10^3/uL (0.0-0.2) Sodium Level 138 mmol/L (136-145) Potassium Level 3.4 mmol/L (3.5-5.1) Chloride Level 105 mmol/L (98-107) Carbon Dioxide Level 29 mmol/L (21-32) Anion Gap 4 (6-14) Blood Urea Nitrogen 13 mg/dL (8-26) Creatinine 0.4 mg/dL (0.7-1.3) Estimated GFR (Cockcroft-Gault) 220.9 BUN/Creatinine Ratio 33 (6-20) Glucose Level 249 mg/dL (70-99) Calcium Level 7.2 mg/dL (8.5-10.1) Phosphorus Level 3.1 mg/dL (2.6-4.7) Magnesium Level 1.7 mg/dL (1.8-2.4) Total Bilirubin 0.7 mg/dL (0.2-1.0) Aspartate Amino Transf (AST/SGOT) 11 U/L (15-37) Alanine Aminotransferase (ALT/SGPT) 16 U/L (16-63) Alkaline Phosphatase 130 U/L (46-116) Total Protein 3.8 g/dL (6.4-8.2) Albumin 1.3 g/dL (3.4-5.0) Albumin/Globulin Ratio 0.5 (1.0-1.7) Test 12/25/18 06:10 12/25/18 08:00 Glucose (Fingerstick) 221 mg/dL (70-99) O2 Saturation 95 % (92-99) Arterial Blood pH 7.42 (7.35-7.45) Arterial Blood pCO2 at Patient Temp 42 mmHg (35-46) Arterial Blood pO2 at Patient Temp 85 mmHg (75-108) Arterial Blood HCO3 27 mmol/L (21-28) Arterial Blood Base Excess 2 mmol/L (-3-3) FiO2 40 Medications Active Scripts Medications Dose Route/Sig Max Daily Dose Days Date Category Trophamine (Amino Acids 10 %) 500 Ml Iv.soln 500 Ml IV DAILY 199912/21/18 Reported Duoneb 0.5-3(2.5) Mg/3 Ml (Albuterol/Ipratropium) 3 Ml Ampul.neb 3 Ml NEB BID 12/21/18 Reported Dulcolax (Bisacodyl) 10 Mg Supp.rect 10 Mg RC PRN DAILY PRN 12/21/18 Reported Duoneb 0.5-3(2.5) Mg/3 Ml (Albuterol/Ipratropium) 3 Ml Ampul.neb 3 Ml NEB PRN Q4HRS PRN 12/21/18 Reported Atorvastatin Calcium 40 Mg Tablet 1 Tab PO QHS 12/21/18 Reported Simethicone 80 Mg Tab.chew 80 Mg PO PRN TID PRN 12/21/18 Reported Humalog (Insulin Lispro) 100 Unit/1 Ml Vial 0 SQ Q6HRS 12/21/18 Reported Ondansetron Hcl 4 Mg/2 Ml Vial (Ondansetron Hcl/Pf) 4 Mg/2 Ml Vial 4 Mg IJ PRN Q6HRS PRN 12/21/18 Reported Actos (Pioglitazone Hcl) 15 Mg Tablet 1 Tab PO DAILY 12/21/18 Reported Tylenol Extra Strength (Acetaminophen) 500 Mg Tablet 1,000 Mg PO PRN Q6HRS PRN 12/21/18 Reported Senokot-S Tablet (Sennosides/Docusate Sodium) 1 Each Tablet 1 Tab PO BID 12/21/18 Reported Vitamin D3 (Cholecalciferol (Vitamin D3)) 1,000 Unit Tablet 1 Tab PO DAILY 12/21/18 Reported Carvedilol (Carvedilol) 12.5 Mg Tablet 12.5 Mg PO BIDWMEALS 12/21/18 Reported Impression . IMPRESSION: 1. Expected hypoxemic respiratory failure, status post open pancreatic pseudocyst gastrostomy, open cholecystectomy, G-tube placement. 2. History of necrotizing pancreatitis. 3. Abnormal x-ray. 4. Possible sepsis. 5. Coronary artery disease, status post coronary artery bypass grafting. 6. History of alcoholism. 7. Protein malnutrition, present upon admission. 8. Acute blood loss anemia, expected. Plan . TRANSFUSE OFF PRESSORS D/W RN STILL CRITICALLY ILL WILL CONTINUE SUPPORT D/W RT DECREASE MINUTE VENTILATION LABS AND CXR REVIEWED TPN FOR NUTRITION DVT PROPH FOLLOW CONSULTANTS INPUT NALINI GASCA MD Dec 25, 2018 09:30
--- NOTE | 2018-12-25 09:36 | PDOC ---
Objective: Objective: No GI concerns per RN. Vital Signs: Vital Signs Date Time Temp Pulse Resp B/P (MAP) Pulse Ox O2 Delivery O2 Flow Rate FiO2 12/25/18 09:00 67 17 146/57 (86) 98 Ventilator 12/25/18 07:00 97.7 97.7 Labs: Laboratory Tests Test 12/24/18 12:01 12/24/18 17:34 12/25/18 01:01 12/25/18 06:00 Glucose (Fingerstick) 296 mg/dL 245 mg/dL 260 mg/dL White Blood Count 2.9 x10^3/uL Red Blood Count 2.60 x10^6/uL Hemoglobin 6.9 g/dL Hematocrit 21.2 % Mean Corpuscular Volume 81 fL Mean Corpuscular Hemoglobin 27 pg Mean Corpuscular Hemoglobin Concent 33 g/dL Red Cell Distribution Width 18.8 % Platelet Count 135 x10^3/uL Neutrophils (%) (Auto) 66 % Lymphocytes (%) (Auto) 15 % Monocytes (%) (Auto) 15 % Eosinophils (%) (Auto) 4 % Basophils (%) (Auto) 0 % Neutrophils # (Auto) 1.9 x10^3uL Lymphocytes # (Auto) 0.4 x10^3/uL Monocytes # (Auto) 0.4 x10^3/uL Eosinophils # (Auto) 0.1 x10^3/uL Basophils # (Auto) 0.0 x10^3/uL Sodium Level 138 mmol/L Potassium Level 3.4 mmol/L Chloride Level 105 mmol/L Carbon Dioxide Level 29 mmol/L Anion Gap 4 Blood Urea Nitrogen 13 mg/dL Creatinine 0.4 mg/dL Estimated GFR (Cockcroft-Gault) 220.9 BUN/Creatinine Ratio 33 Glucose Level 249 mg/dL Calcium Level 7.2 mg/dL Phosphorus Level 3.1 mg/dL Magnesium Level 1.7 mg/dL Total Bilirubin 0.7 mg/dL Aspartate Amino Transf (AST/SGOT) 11 U/L Alanine Aminotransferase (ALT/SGPT) 16 U/L Alkaline Phosphatase 130 U/L Total Protein 3.8 g/dL Albumin 1.3 g/dL Albumin/Globulin Ratio 0.5 Test 12/25/18 06:10 12/25/18 08:00 Glucose (Fingerstick) 221 mg/dL O2 Saturation 95 % Arterial Blood pH 7.42 Arterial Blood pCO2 at Patient Temp 42 mmHg Arterial Blood pO2 at Patient Temp 85 mmHg Arterial Blood HCO3 27 mmol/L Arterial Blood Base Excess 2 mmol/L FiO2 40 ANAEROBIC-AEROBIC CULTURE PENDING ANAEROBIC RES 1 PENDING AEROBIC CULT PENDING AEROBIC RES 1 PENDING GRAM STAIN Final Final report GRAM STAIN RES 1 Final Comment No white blood cells seen. GRAM STAIN RES 2 Final No organisms seen PE: GEN: intubated LUNGS: vent HEART: RRR ABD: quiet, MISTY, G tube NEURO/PSYCH: sedated A/P: S/p pancreatic pseudocystgastrostomy and cholecystectomy w/ G-tube placement Resp failure - on TPN Anemia - Hgb 6.9, has transfused 3 units total, on PPI Abnormal LFTs - improved -- ?transfuse again Continue support. KALEE ULLOA Dec 25, 2018 09:36
--- NOTE | 2018-12-25 09:45 | PDOC ---
SURGICAL PROGRESS NOTE Subjective vent, intubated Vital Signs Vital Signs Date Time Temp Pulse Resp B/P (MAP) Pulse Ox O2 Delivery O2 Flow Rate FiO2 12/25/18 09:00 67 17 146/57 (86) 98 Ventilator 12/25/18 07:00 97.7 97.7 I&O Intake and Output 12/25/18 06:59 Intake Total 4965 ml Output Total 5905 ml Balance -940 ml IV Total 4105 ml Blood Product 360 ml Blood Product IV Normal Saline Flush 500 ml Output Urine Total 2995 ml Gastric Drainage Total 800 ml Drainage Total 2110 ml PATIENT HAS A MAGAÑA: Yes General: Other (sedated ) Abdomen: Soft, Other (drain serosang, g tube to DD ) Labs Laboratory Tests Test 12/23/18 12:05 12/23/18 16:25 12/23/18 17:45 12/23/18 23:53 Glucose (Fingerstick) 180 mg/dL (70-99) 193 mg/dL (70-99) 233 mg/dL (70-99) [id number]-Type Natriuretic Peptide 90 pg/mL (0-124) Test 12/24/18 06:26 12/24/18 06:30 12/24/18 08:00 12/24/18 12:01 Glucose (Fingerstick) 277 mg/dL (70-99) 296 mg/dL (70-99) White Blood Count 4.5 x10^3/uL (4.0-11.0) Red Blood Count 2.74 x10^6/uL (4.30-5.70) Hemoglobin 7.0 g/dL (13.0-17.5) Hematocrit 21.9 % (39.0-53.0) Mean Corpuscular Volume 80 fL (79-100) Mean Corpuscular Hemoglobin 26 pg (25-35) Mean Corpuscular Hemoglobin Concent 32 g/dL (31-37) Red Cell Distribution Width 18.9 % (11.5-14.5) Platelet Count 178 x10^3/uL (140-400) Neutrophils (%) (Auto) 70 % (31-73) Lymphocytes (%) (Auto) 13 % (24-48) Monocytes (%) (Auto) 14 % (0-9) Eosinophils (%) (Auto) 3 % (0-3) Basophils (%) (Auto) 1 % (0-3) Neutrophils # (Auto) 3.1 x10^3uL (1.8-7.7) Lymphocytes # (Auto) 0.6 x10^3/uL (1.0-4.8) Monocytes # (Auto) 0.6 x10^3/uL (0.0-1.1) Eosinophils # (Auto) 0.1 x10^3/uL (0.0-0.7) Basophils # (Auto) 0.0 x10^3/uL (0.0-0.2) Sodium Level 140 mmol/L (136-145) Potassium Level 3.0 mmol/L (3.5-5.1) Chloride Level 106 mmol/L (98-107) Carbon Dioxide Level 29 mmol/L (21-32) Anion Gap 5 (6-14) Blood Urea Nitrogen 15 mg/dL (8-26) Creatinine 0.5 mg/dL (0.7-1.3) Estimated GFR (Cockcroft-Gault) 170.8 BUN/Creatinine Ratio 30 (6-20) Glucose Level 289 mg/dL (70-99) Calcium Level 7.2 mg/dL (8.5-10.1) Phosphorus Level 2.4 mg/dL (2.6-4.7) Magnesium Level 1.6 mg/dL (1.8-2.4) Total Bilirubin 1.5 mg/dL (0.2-1.0) Aspartate Amino Transf (AST/SGOT) 18 U/L (15-37) Alanine Aminotransferase (ALT/SGPT) 21 U/L (16-63) Alkaline Phosphatase 171 U/L (46-116) Total Protein 4.1 g/dL (6.4-8.2) Albumin 1.4 g/dL (3.4-5.0) Albumin/Globulin Ratio 0.5 (1.0-1.7) O2 Saturation 94 % (92-99) Arterial Blood pH 7.43 (7.35-7.45) Arterial Blood pCO2 at Patient Temp 39 mmHg (35-46) Arterial Blood pO2 at Patient Temp 88 mmHg (75-108) Arterial Blood HCO3 25 mmol/L (21-28) Arterial Blood Base Excess 1 mmol/L (-3-3) FiO2 40 Test 12/24/18 17:34 12/25/18 01:01 12/25/18 06:00 12/25/18 06:10 Glucose (Fingerstick) 245 mg/dL (70-99) 260 mg/dL (70-99) 221 mg/dL (70-99) White Blood Count 2.9 x10^3/uL (4.0-11.0) Red Blood Count 2.60 x10^6/uL (4.30-5.70) Hemoglobin 6.9 g/dL (13.0-17.5) Hematocrit 21.2 % (39.0-53.0) Mean Corpuscular Volume 81 fL (79-100) Mean Corpuscular Hemoglobin 27 pg (25-35) Mean Corpuscular Hemoglobin Concent 33 g/dL (31-37) Red Cell Distribution Width 18.8 % (11.5-14.5) Platelet Count 135 x10^3/uL (140-400) Neutrophils (%) (Auto) 66 % (31-73) Lymphocytes (%) (Auto) 15 % (24-48) Monocytes (%) (Auto) 15 % (0-9) Eosinophils (%) (Auto) 4 % (0-3) Basophils (%) (Auto) 0 % (0-3) Neutrophils # (Auto) 1.9 x10^3uL (1.8-7.7) Lymphocytes # (Auto) 0.4 x10^3/uL (1.0-4.8) Monocytes # (Auto) 0.4 x10^3/uL (0.0-1.1) Eosinophils # (Auto) 0.1 x10^3/uL (0.0-0.7) Basophils # (Auto) 0.0 x10^3/uL (0.0-0.2) Sodium Level 138 mmol/L (136-145) Potassium Level 3.4 mmol/L (3.5-5.1) Chloride Level 105 mmol/L (98-107) Carbon Dioxide Level 29 mmol/L (21-32) Anion Gap 4 (6-14) Blood Urea Nitrogen 13 mg/dL (8-26) Creatinine 0.4 mg/dL (0.7-1.3) Estimated GFR (Cockcroft-Gault) 220.9 BUN/Creatinine Ratio 33 (6-20) Glucose Level 249 mg/dL (70-99) Calcium Level 7.2 mg/dL (8.5-10.1) Phosphorus Level 3.1 mg/dL (2.6-4.7) Magnesium Level 1.7 mg/dL (1.8-2.4) Total Bilirubin 0.7 mg/dL (0.2-1.0) Aspartate Amino Transf (AST/SGOT) 11 U/L (15-37) Alanine Aminotransferase (ALT/SGPT) 16 U/L (16-63) Alkaline Phosphatase 130 U/L (46-116) Total Protein 3.8 g/dL (6.4-8.2) Albumin 1.3 g/dL (3.4-5.0) Albumin/Globulin Ratio 0.5 (1.0-1.7) Test 12/25/18 08:00 O2 Saturation 95 % (92-99) Arterial Blood pH 7.42 (7.35-7.45) Arterial Blood pCO2 at Patient Temp 42 mmHg (35-46) Arterial Blood pO2 at Patient Temp 85 mmHg (75-108) Arterial Blood HCO3 27 mmol/L (21-28) Arterial Blood Base Excess 2 mmol/L (-3-3) FiO2 40 Laboratory Tests Test 12/24/18 12:01 12/24/18 17:34 12/25/18 01:01 12/25/18 06:00 Glucose (Fingerstick) 296 mg/dL (70-99) 245 mg/dL (70-99) 260 mg/dL (70-99) White Blood Count 2.9 x10^3/uL (4.0-11.0) Red Blood Count 2.60 x10^6/uL (4.30-5.70) Hemoglobin 6.9 g/dL (13.0-17.5) Hematocrit 21.2 % (39.0-53.0) Mean Corpuscular Volume 81 fL (79-100) Mean Corpuscular Hemoglobin 27 pg (25-35) Mean Corpuscular Hemoglobin Concent 33 g/dL (31-37) Red Cell Distribution Width 18.8 % (11.5-14.5) Platelet Count 135 x10^3/uL (140-400) Neutrophils (%) (Auto) 66 % (31-73) Lymphocytes (%) (Auto) 15 % (24-48) Monocytes (%) (Auto) 15 % (0-9) Eosinophils (%) (Auto) 4 % (0-3) Basophils (%) (Auto) 0 % (0-3) Neutrophils # (Auto) 1.9 x10^3uL (1.8-7.7) Lymphocytes # (Auto) 0.4 x10^3/uL (1.0-4.8) Monocytes # (Auto) 0.4 x10^3/uL (0.0-1.1) Eosinophils # (Auto) 0.1 x10^3/uL (0.0-0.7) Basophils # (Auto) 0.0 x10^3/uL (0.0-0.2) Sodium Level 138 mmol/L (136-145) Potassium Level 3.4 mmol/L (3.5-5.1) Chloride Level 105 mmol/L (98-107) Carbon Dioxide Level 29 mmol/L (21-32) Anion Gap 4 (6-14) Blood Urea Nitrogen 13 mg/dL (8-26) Creatinine 0.4 mg/dL (0.7-1.3) Estimated GFR (Cockcroft-Gault) 220.9 BUN/Creatinine Ratio 33 (6-20) Glucose Level 249 mg/dL (70-99) Calcium Level 7.2 mg/dL (8.5-10.1) Phosphorus Level 3.1 mg/dL (2.6-4.7) Magnesium Level 1.7 mg/dL (1.8-2.4) Total Bilirubin 0.7 mg/dL (0.2-1.0) Aspartate Amino Transf (AST/SGOT) 11 U/L (15-37) Alanine Aminotransferase (ALT/SGPT) 16 U/L (16-63) Alkaline Phosphatase 130 U/L (46-116) Total Protein 3.8 g/dL (6.4-8.2) Albumin 1.3 g/dL (3.4-5.0) Albumin/Globulin Ratio 0.5 (1.0-1.7) Test 12/25/18 06:10 12/25/18 08:00 Glucose (Fingerstick) 221 mg/dL (70-99) O2 Saturation 95 % (92-99) Arterial Blood pH 7.42 (7.35-7.45) Arterial Blood pCO2 at Patient Temp 42 mmHg (35-46) Arterial Blood pO2 at Patient Temp 85 mmHg (75-108) Arterial Blood HCO3 27 mmol/L (21-28) Arterial Blood Base Excess 2 mmol/L (-3-3) FiO2 40 Problem List supportive measures MAIKOL MORRELL APRN Dec 25, 2018 09:45
--- NOTE | 2018-12-25 10:12 | PDOC ---
IM PROGRESS NOTES- Subjective Subjective Patient is sedated and unable to do systems review. Objective Vitals Vital Signs Date Time Temp Pulse Resp B/P (MAP) Pulse Ox O2 Delivery O2 Flow Rate FiO2 12/25/18 09:00 67 17 146/57 (86) 98 Ventilator 12/25/18 07:00 97.7 97.7 Input & Output Intake and Output 12/25/18 07:00 Intake Total 4965 ml Output Total 5580 ml Balance -615 ml IV Total 4105 ml Blood Product 360 ml Blood Product IV Normal Saline Flush 500 ml Output Urine Total 2970 ml Gastric Drainage Total 800 ml Drainage Total 1810 ml Physical Exam Physical Exam GENERAL: The patient is sedated on mechanical ventilation. Tracheostomy tube in place, eyes closed. HEENT: Partial exam. No other changes. LUNGS: Decreased breath sounds at bases. CARDIOVASCULAR: S1, S2 regular. ABDOMEN: The patient is status post surgery with dressing in place. Bowel sounds hyperactive. EXTREMITIES: 3-4+ edema. The patient also has anasarca. CENTRAL NERVOUS SYSTEM: Sedated. Labs Laboratory Tests Test 12/23/18 12:05 12/23/18 16:25 12/23/18 17:45 12/23/18 23:53 Glucose (Fingerstick) 180 mg/dL (70-99) 193 mg/dL (70-99) 233 mg/dL (70-99) ER-Uxw-O-Type Natriuretic Peptide 90 pg/mL (0-124) Test 12/24/18 06:26 12/24/18 06:30 12/24/18 08:00 12/24/18 12:01 Glucose (Fingerstick) 277 mg/dL (70-99) 296 mg/dL (70-99) White Blood Count 4.5 x10^3/uL (4.0-11.0) Red Blood Count 2.74 x10^6/uL (4.30-5.70) Hemoglobin 7.0 g/dL (13.0-17.5) Hematocrit 21.9 % (39.0-53.0) Mean Corpuscular Volume 80 fL (79-100) Mean Corpuscular Hemoglobin 26 pg (25-35) Mean Corpuscular Hemoglobin Concent 32 g/dL (31-37) Red Cell Distribution Width 18.9 % (11.5-14.5) Platelet Count 178 x10^3/uL (140-400) Neutrophils (%) (Auto) 70 % (31-73) Lymphocytes (%) (Auto) 13 % (24-48) Monocytes (%) (Auto) 14 % (0-9) Eosinophils (%) (Auto) 3 % (0-3) Basophils (%) (Auto) 1 % (0-3) Neutrophils # (Auto) 3.1 x10^3uL (1.8-7.7) Lymphocytes # (Auto) 0.6 x10^3/uL (1.0-4.8) Monocytes # (Auto) 0.6 x10^3/uL (0.0-1.1) Eosinophils # (Auto) 0.1 x10^3/uL (0.0-0.7) Basophils # (Auto) 0.0 x10^3/uL (0.0-0.2) Sodium Level 140 mmol/L (136-145) Potassium Level 3.0 mmol/L (3.5-5.1) Chloride Level 106 mmol/L (98-107) Carbon Dioxide Level 29 mmol/L (21-32) Anion Gap 5 (6-14) Blood Urea Nitrogen 15 mg/dL (8-26) Creatinine 0.5 mg/dL (0.7-1.3) Estimated GFR (Cockcroft-Gault) 170.8 BUN/Creatinine Ratio 30 (6-20) Glucose Level 289 mg/dL (70-99) Calcium Level 7.2 mg/dL (8.5-10.1) Phosphorus Level 2.4 mg/dL (2.6-4.7) Magnesium Level 1.6 mg/dL (1.8-2.4) Total Bilirubin 1.5 mg/dL (0.2-1.0) Aspartate Amino Transf (AST/SGOT) 18 U/L (15-37) Alanine Aminotransferase (ALT/SGPT) 21 U/L (16-63) Alkaline Phosphatase 171 U/L (46-116) Total Protein 4.1 g/dL (6.4-8.2) Albumin 1.4 g/dL (3.4-5.0) Albumin/Globulin Ratio 0.5 (1.0-1.7) O2 Saturation 94 % (92-99) Arterial Blood pH 7.43 (7.35-7.45) Arterial Blood pCO2 at Patient Temp 39 mmHg (35-46) Arterial Blood pO2 at Patient Temp 88 mmHg (75-108) Arterial Blood HCO3 25 mmol/L (21-28) Arterial Blood Base Excess 1 mmol/L (-3-3) FiO2 40 Test 12/24/18 17:34 12/25/18 01:01 12/25/18 06:00 12/25/18 06:10 Glucose (Fingerstick) 245 mg/dL (70-99) 260 mg/dL (70-99) 221 mg/dL (70-99) White Blood Count 2.9 x10^3/uL (4.0-11.0) Red Blood Count 2.60 x10^6/uL (4.30-5.70) Hemoglobin 6.9 g/dL (13.0-17.5) Hematocrit 21.2 % (39.0-53.0) Mean Corpuscular Volume 81 fL (79-100) Mean Corpuscular Hemoglobin 27 pg (25-35) Mean Corpuscular Hemoglobin Concent 33 g/dL (31-37) Red Cell Distribution Width 18.8 % (11.5-14.5) Platelet Count 135 x10^3/uL (140-400) Neutrophils (%) (Auto) 66 % (31-73) Lymphocytes (%) (Auto) 15 % (24-48) Monocytes (%) (Auto) 15 % (0-9) Eosinophils (%) (Auto) 4 % (0-3) Basophils (%) (Auto) 0 % (0-3) Neutrophils # (Auto) 1.9 x10^3uL (1.8-7.7) Lymphocytes # (Auto) 0.4 x10^3/uL (1.0-4.8) Monocytes # (Auto) 0.4 x10^3/uL (0.0-1.1) Eosinophils # (Auto) 0.1 x10^3/uL (0.0-0.7) Basophils # (Auto) 0.0 x10^3/uL (0.0-0.2) Sodium Level 138 mmol/L (136-145) Potassium Level 3.4 mmol/L (3.5-5.1) Chloride Level 105 mmol/L (98-107) Carbon Dioxide Level 29 mmol/L (21-32) Anion Gap 4 (6-14) Blood Urea Nitrogen 13 mg/dL (8-26) Creatinine 0.4 mg/dL (0.7-1.3) Estimated GFR (Cockcroft-Gault) 220.9 BUN/Creatinine Ratio 33 (6-20) Glucose Level 249 mg/dL (70-99) Calcium Level 7.2 mg/dL (8.5-10.1) Phosphorus Level 3.1 mg/dL (2.6-4.7) Magnesium Level 1.7 mg/dL (1.8-2.4) Total Bilirubin 0.7 mg/dL (0.2-1.0) Aspartate Amino Transf (AST/SGOT) 11 U/L (15-37) Alanine Aminotransferase (ALT/SGPT) 16 U/L (16-63) Alkaline Phosphatase 130 U/L (46-116) Total Protein 3.8 g/dL (6.4-8.2) Albumin 1.3 g/dL (3.4-5.0) Albumin/Globulin Ratio 0.5 (1.0-1.7) Test 12/25/18 08:00 O2 Saturation 95 % (92-99) Arterial Blood pH 7.42 (7.35-7.45) Arterial Blood pCO2 at Patient Temp 42 mmHg (35-46) Arterial Blood pO2 at Patient Temp 85 mmHg (75-108) Arterial Blood HCO3 27 mmol/L (21-28) Arterial Blood Base Excess 2 mmol/L (-3-3) FiO2 40 Laboratory Tests Test 12/24/18 12:01 12/24/18 17:34 12/25/18 01:01 12/25/18 06:00 Glucose (Fingerstick) 296 mg/dL (70-99) 245 mg/dL (70-99) 260 mg/dL (70-99) White Blood Count 2.9 x10^3/uL (4.0-11.0) Red Blood Count 2.60 x10^6/uL (4.30-5.70) Hemoglobin 6.9 g/dL (13.0-17.5) Hematocrit 21.2 % (39.0-53.0) Mean Corpuscular Volume 81 fL (79-100) Mean Corpuscular Hemoglobin 27 pg (25-35) Mean Corpuscular Hemoglobin Concent 33 g/dL (31-37) Red Cell Distribution Width 18.8 % (11.5-14.5) Platelet Count 135 x10^3/uL (140-400) Neutrophils (%) (Auto) 66 % (31-73) Lymphocytes (%) (Auto) 15 % (24-48) Monocytes (%) (Auto) 15 % (0-9) Eosinophils (%) (Auto) 4 % (0-3) Basophils (%) (Auto) 0 % (0-3) Neutrophils # (Auto) 1.9 x10^3uL (1.8-7.7) Lymphocytes # (Auto) 0.4 x10^3/uL (1.0-4.8) Monocytes # (Auto) 0.4 x10^3/uL (0.0-1.1) Eosinophils # (Auto) 0.1 x10^3/uL (0.0-0.7) Basophils # (Auto) 0.0 x10^3/uL (0.0-0.2) Sodium Level 138 mmol/L (136-145) Potassium Level 3.4 mmol/L (3.5-5.1) Chloride Level 105 mmol/L (98-107) Carbon Dioxide Level 29 mmol/L (21-32) Anion Gap 4 (6-14) Blood Urea Nitrogen 13 mg/dL (8-26) Creatinine 0.4 mg/dL (0.7-1.3) Estimated GFR (Cockcroft-Gault) 220.9 BUN/Creatinine Ratio 33 (6-20) Glucose Level 249 mg/dL (70-99) Calcium Level 7.2 mg/dL (8.5-10.1) Phosphorus Level 3.1 mg/dL (2.6-4.7) Magnesium Level 1.7 mg/dL (1.8-2.4) Total Bilirubin 0.7 mg/dL (0.2-1.0) Aspartate Amino Transf (AST/SGOT) 11 U/L (15-37) Alanine Aminotransferase (ALT/SGPT) 16 U/L (16-63) Alkaline Phosphatase 130 U/L (46-116) Total Protein 3.8 g/dL (6.4-8.2) Albumin 1.3 g/dL (3.4-5.0) Albumin/Globulin Ratio 0.5 (1.0-1.7) Test 12/25/18 06:10 12/25/18 08:00 Glucose (Fingerstick) 221 mg/dL (70-99) O2 Saturation 95 % (92-99) Arterial Blood pH 7.42 (7.35-7.45) Arterial Blood pCO2 at Patient Temp 42 mmHg (35-46) Arterial Blood pO2 at Patient Temp 85 mmHg (75-108) Arterial Blood HCO3 27 mmol/L (21-28) Arterial Blood Base Excess 2 mmol/L (-3-3) FiO2 40 Meds Current Medications Albumin Human 100 ml @ 100 mls/hr 1X ONCE IV Last administered on 12/24/18at 12:41; Start 12/24/18 at 11:15; Stop 12/24/18 at 12:14; Status DC Furosemide (Lasix) 20 mg 1X ONCE IVP Last administered on 12/24/18at 13:03; Start 12/24/18 at 11:15; Stop 12/24/18 at 11:19; Status DC Magnesium Sulfate 50 ml @ 25 mls/hr 1X ONCE IV Last administered on 12/24/18at 10:34; Start 12/24/18 at 10:30; Stop 12/24/18 at 12:29; Status DC Magnesium Sulfate 50 ml @ 25 mls/hr 1X ONCE IV Last administered on 12/25/18at 10:06; Start 12/25/18 at 09:30; Stop 12/25/18 at 11:29 Meropenem 500 mg/ Sodium Chloride 50 ml @ 100 mls/hr Q6HRS IV ; Start 12/25/18 at 12:00 Potassium Chloride/Water 50 ml @ 50 mls/hr Q1H IV Last administered on at 14:10; Start 12/24/18 at 13:30; Stop 12/24/18 at 15:29; Status DC Potassium Chloride/Water 50 ml @ 50 mls/hr Q1H IV ; Start 12/25/18 at 10:00; Stop 12/25/18 at 11:59 Potassium Phosphate 10 mmol/ Dextrose 103.3333 ml @ 51.667 m... Q2H IV Last administered on 12/24/18at 13:02; Start 12/24/18 at 10:30; Stop 12/24/18 at 14:29 ; Status DC Sodium Chloride 110 meq/Sodium Acetate 12 meq/ Potassium Chloride 50 meq/ Potassium Phosphate 20 mmol/ Magnesium Sulfate 20 meq/Calcium Gluconate 9.3 meq / Multivitamins 10 ml/Chromium/ Copper/Manganese/ Seleni/Zn 1 ml/ Insulin Human Regular 80 unit/ Total Parenteral Nutrition/Amino Acids/Dextro... 2,400 ml @ 100 mls/hr TPN CONT IV Last administered on 12/24/18at 23:24; Start 12/24/18 at 22:00; Stop 12/25/18 at 21:59 Assessment Assessment 1. Acute respiratory failure. 2. Acute hypotension, on dopamine. The patient's urine output is stable, but the patient has a significant fluid retention due to third spacing. 3. Acute pancreatitis with pseudocyst. 4. Systolic congestive heart failure. 5. Coronary artery disease, history of coronary artery bypass graft x 5. 6. Acute metabolic encephalopathy. 7. History of fall with nasal fracture. 8. History of atrial fibrillation. 9. Hyperlipidemia. 10. Severe protein-calorie malnutrition. 11. Anemia. 12. Obesity hypoventilation syndrome, with likely obstructive sleep apnea, has been on BiPAP at night. PLAN: The patient is retaining significant amount of fluids, so I will give him 1 amp of 25% albumin along with 1 unit of packed red cells as well as Lasix. Continue IV dopamine to maintain systolic blood pressure. Monitor urine output. I ordered 1 unit of packed red cells because of significant blood loss yesterday along with significant hypotension with his coronary artery disease, congestive heart failure and third spacing due to hypotension even though his hemoglobin is 7.5. We will consult Dr. Moralez for cardiology evaluation and management, Dr. Cornejo for infectious disease evaluation and management and Dr. Romero has been consulted for pulmonary evaluation and management. Continue management of the mechanical ventilation. Continue to hold some of the previous medications. We will start TPN this evening and continue to monitor blood sugars every 6 hours and regular insulin to TPN and also start him on IV Protonix. Prognosis of this patient is very poor. For details, please refer to the orders. I will also consult Dr. Giraldo for GI evaluation and management. Fluid retention- hemoglobin is 6.9 so we'll transfuse 1 unit, give 1 amp of the IV albumin as well as 20 mg of IV Lasix. Consult Dr. Ken for management of fluid retention. He has severe anasarca. Albumin is only 1.4. Severe protein calorie malnutrition- continue TPN Diabetes mellitus type 2- not controlled. Continue regular insulin in TPN as well as sliding scale insulin. Hypokalemia- replace Hypomagnesemia- replaced. Discussed with patient's brother Weston. Hypotension- resolved off dopamine . Coronary artery disease- echocardiogram shows ejection fraction of 60%. Acute cholecystitis off. IV Zosyn. On Merrem and Zyvox Plan Plan For more details regarding further plans, please refer to the orders. REHANA CASE MD Dec 25, 2018 10:12
[2018-12-25] MEDS ORDERED: ALBUMIN HUMAN 25% 100 ML IV ONE (10:15)
[2018-12-25] MEDS ORDERED: FUROSEMIDE 40 MG/4 ML VIAL. IVP ONE ×2 (10:15→16:15)
[2018-12-25] MEDS: POTASSIUM CHL 20MEQ PREMIX 50 ML IV SCH ×2 (10:44→11:58)
[2018-12-25] MEDS: TPN PER PHARMACY MC PRN ×3 (10:56→14:48)
--- NOTE | 2018-12-25 11:33 | PDOC2 ---
CONSULT Date of Consult Date of Consult DATE: 12/25/18 TIME: 11:26 Identification/Chief Complaint Chief Complaint INTUBATED History of Present Illness Reason for Visit: THIS IS A 58 YR OLD WITH HX OF PANCREATIC CYST AND ETOH ABUSE. CAME IN WITH ABD PAIN AT [facility] AND TREATED CONSERVATIVELY AND THEN WENT TO [facility] AND DID NOT DO WELL AND HAD SURGICAL INTERVENTION DONE WITH CYST DRAIN, CHOLY AND G TUBE PLACEMENT. NOW ON THE VENT WITH RESP FAILURE. NO BELLE WITH GOOD UO BUT HAS MULTIPLE ELECTROLYTE IMBALANCE. ON TPN Past Medical History Cardiovascular: AFIB, CAD, HTN, Hyperlipidemia Pulmonary: No pertinent hx GI: Other (pancreatitis ) Hepatobiliary: Cholelithiasis, Other (pancreatitis ) Psych: No pertinent hx Rheumatologic: No pertinent hx Infectious disease: No pertinent hx ENT: No pertinent hx Renal/: No pertinent hx Endocrine: Diabetes Dermatology: No pertinent hx Past Surgical History Past Surgical History: CABG Family History Family History: Family History Unknown Social History No ALCOHOL: none (recent, h/o heavy ETOH years ago) Drugs: None Lives: Jail ([facility] ) Current Medications Current Medications Current Medications Heparin Sodium (Porcine) 1000 unit/Sodium Chloride 1,001 ml @ 1,001 mls/hr 1X ONCE IRR Last administered on 12/22/18at 12:56; Start 12/22/18 at 06:00; Stop at 06:59; Status DC Ondansetron HCl (Zofran) 4 mg PRN Q6HRS PRN IV NAUSEA/VOMITING; Start 12/22/18 at 07:00; Stop 12/22/18 at 19:00; Status DC Fentanyl Citrate (Fentanyl 2ml Vial) 25 mcg PRN Q5MIN PRN IV MILD PAIN; Start 12/22/18 at 07:00; Stop 12/22/18 at 19:00; Status DC Fentanyl Citrate (Fentanyl 2ml Vial) 50 mcg PRN Q5MIN PRN IV MODERATE TO SEVERE PAIN; Start 12/22/18 at 07:00; Stop 12/22/18 at 19:00; Status DC Morphine Sulfate (Morphine Sulfate) 1 mg PRN Q10MIN PRN IV SEVERE PAIN; Start 12/22/18 at 07:00; Stop 12/22/18 at 19:00; Status DC Ringer's Solution 1,000 ml @ 30 mls/hr Q24H IV Last administered on 12/22/18at 10:55; Start 12/22/18 at 07:00; Stop 12/22/18 at 18:59; Status DC Hydromorphone HCl (Dilaudid) 0.5 mg PRN Q10MIN PRN IV SEV PAIN, Second choice; Start 12/22/18 at 07:00; Stop 12/22/18 at 19:00; Status DC Prochlorperazine Edisylate (Compazine) 5 mg PACU PRN PRN IV NAUSEA, MRX1; Start 12/22/18 at 07:00; Stop 12/22/18 at 19:00; Status DC Ibuprofen (Motrin) 200 mg 1X PREOP PO ; Start 12/22/18 at 08:00; Stop 12/23/18 at 12:33; Status DC Cefazolin Sodium/ Dextrose 50 ml @ 100 mls/hr 1X PREOP PRN IV PRIOR TO PROCEDURE Last administered on 12/22/18at 11:28; Start 12/22/18 at 06:00; Stop at 18:00; Status DC Bisacodyl (Dulcolax Supp) 10 mg 1X PRN PRN [facility] CONSTIPATION; Start 12/22/18 at 08:00; Stop 12/22/18 at 18:00; Status DC Bupivacaine HCl/ Epinephrine Bitart (Sensorcain-Mpf Epi 0.5%-[id number]) 30 ml STK -MED ONCE .ROUTE Last administered on 12/22/18at 12:23; Start 12/22/18 at 07:03 ; Stop 12/22/18 at 08:05; Status DC Iohexol (Omnipaque 300 Mg/ml) 100 ml STK-MED ONCE .ROUTE Last administered on at 12:24; Start 12/22/18 at 07:03; Stop 12/22/18 at 08:05; Status DC Cellulose (Surgicel Hemostat 4x8) 1 each STK-MED ONCE .ROUTE Last administered on 12/22/18at 13:58; Start 12/22/18 at 07:03; Stop 12/22/18 at 08:05; Status DC Bisacodyl (Dulcolax Supp) 10 mg STK-MED ONCE .ROUTE ; Start 12/22/18 at 07:03; Stop 12/22/18 at 08:05; Status DC Propofol 20 ml @ As Directed STK-MED ONCE IV ; Start 12/22/18 at 09:59; Stop at 10:00; Status DC Lidocaine HCl (Lidocaine Pf 2% Vial) 5 ml STK-MED ONCE .ROUTE ; Start 12/22/18 at 09:59; Stop 12/22/18 at 10:00; Status DC Dexamethasone Sodium Phosphate (Decadron) 20 mg STK-MED ONCE .ROUTE ; Start at 09:59; Stop 12/22/18 at 10:00; Status DC Ondansetron HCl (Zofran) 4 mg STK-MED ONCE .ROUTE ; Start 12/22/18 at 09:59; Stop 12/22/18 at 10:00; Status DC Famotidine (Pepcid Vial) 20 mg STK-MED ONCE .ROUTE ; Start 12/22/18 at 09:59; Stop 12/22/18 at 10:00; Status DC Rocuronium Captiva (Zemuron) 50 mg STK-MED ONCE .ROUTE ; Start 12/22/18 at 10:00 ; Stop 12/22/18 at 10:01; Status DC Midazolam HCl (Versed) 2 mg STK-MED ONCE .ROUTE ; Start 12/22/18 at 10:00; Stop 12/22/18 at 10:01; Status DC Fentanyl Citrate (Fentanyl 2ml Vial) 100 mcg STK-MED ONCE .ROUTE ; Start at 10:01; Stop 12/22/18 at 10:02; Status DC Ephedrine Sulfate (ePHEDrine PF IN SALINE SYRINGE) 50 mg STK-MED ONCE IV ; Start 12/22/18 at 11:42; Stop 12/22/18 at 11:43; Status DC Glycopyrrolate (Robinul) 1 mg STK-MED ONCE .ROUTE ; Start 12/22/18 at 12:28; Stop 12/22/18 at 12:29; Status DC Neostigmine Methylsulfate (Neostigmine Methylsulfate) 5 mg STK-MED ONCE .ROUTE ; Start 12/22/18 at 12:29; Stop 12/22/18 at 12:30; Status DC Sevoflurane (Ultane) 90 ml STK-MED ONCE IH ; Start 12/22/18 at 12:35; Stop 12/22 at 12:36; Status DC Phenylephrine HCl (PHENYLEPHRINE in 0.9% NACL PF) 1 mg STK-MED ONCE IV ; Start 12/22/18 at 12:39; Stop 12/22/18 at 12:40; Status DC Albumin Human 500 ml @ As Directed STK-MED ONCE IV ; Start 12/22/18 at 12:48; Stop 12/22/18 at 12:49; Status DC Phenylephrine HCl (Jeromy-Synephrine Inj) 10 mg STK-MED ONCE .ROUTE ; Start at 12:49; Stop 12/22/18 at 12:50; Status DC Rocuronium Captiva (Zemuron) 50 mg STK-MED ONCE .ROUTE ; Start 12/22/18 at 13:04 ; Stop 12/22/18 at 13:05; Status DC Dopamine HCl/ Dextrose 250 ml @ As Directed STK-MED ONCE IV ; Start 12/22/18 at 13:15; Stop 12/22/18 at 13:16; Status DC Ephedrine Sulfate (Akovaz) 50 mg STK-MED ONCE .ROUTE ; Start 12/22/18 at 13:52; Stop 12/22/18 at 13:53; Status DC Rocuronium Captiva (Zemuron) 50 mg STK-MED ONCE .ROUTE ; Start 12/22/18 at 13:52 ; Stop 12/22/18 at 13:53; Status DC Albumin Human 500 ml @ As Directed STK-MED ONCE IV ; Start 12/22/18 at 13:57; Stop 12/22/18 at 13:58; Status DC Ephedrine Sulfate (ePHEDrine PF IN SALINE SYRINGE) 50 mg STK-MED ONCE IV ; Start 12/22/18 at 14:29; Stop 12/22/18 at 14:30; Status DC Metronidazole 100 ml @ 100 mls/hr Q12HR IV Last administered on 12/25/18at 08: 41; Start 12/22/18 at 21:00 Cefazolin Sodium/ Dextrose 50 ml @ 100 mls/hr Q8H IV Last administered on 12/23at 12:10; Start 12/22/18 at 20:00; Stop 12/23/18 at 13:48; Status DC Enoxaparin Sodium (Lovenox 40mg Syringe) 40 mg Q24H SQ Last administered on 08:25; Start 12/23/18 at 09:00 Sodium Chloride (Normal Saline Flush) 3 ml QSHIFT PRN IV AFTER MEDS AND BLOOD DRAWS; Start 12/22/18 at 14:45 Ringer's Solution 1,000 ml @ 100 mls/hr Q10H IV Last administered on 07:08; Start 12/22/18 at 16:00 Naloxone HCl (Narcan) 0.4 mg PRN Q2MIN PRN IV SEE INSTRUCTIONS; Start 12/22/18 at 14:45 Sodium Chloride 1,000 ml @ 25 mls/hr Q24H IV Last administered on 12/23/18at 16 :51; Start 12/22/18 at 16:00 Morphine Sulfate 30 ml @ 0 mls/hr CONT PRN PRN IV PER PROTOCOL Last administered on 12/22/18at 17:50; Start 12/22/18 at 14:45; Stop 12/22/18 at 18:22 ; Status DC Ondansetron HCl (Zofran) 4 mg PRN Q6HRS PRN IV NAUESA, 1ST CHOICE; Start at 14:45 Chlorhexidine Gluconate (Peridex) 15 ml BID MM Last administered on 12/25/18 08:41; Start 12/22/18 at 21:00 Midazolam HCl 100 ml @ 0 mls/hr CONT PRN IV SEE PROTOCOL Last administered on 09:27; Start 12/22/18 at 15:30 Dopamine HCl/ Dextrose 250 ml @ 8.686 mls/ hr CONT PRN IV SEE I/O RECORD Last administered on 12/24/18at 21:56; Start 12/22/18 at 17:45 Morphine Sulfate 30 ml @ 0 mls/hr CONT PRN PRN IV PER PROTOCOL Last administered on 12/24/18 17:59; Start 12/22/18 at 18:30 Magnesium Sulfate/ Dextrose 100 ml @ 25 mls/hr 1X ONCE IV ; Start 12/23/18 at 09:00; Stop 12/23/18 at 12:59; Status UNV Insulin Human Lispro (HumaLOG) 0-8 UNITS Q6HRS SQ Last administered on 06:19; Start 12/23/18 at 12:00 Magnesium Sulfate 50 ml @ 25 mls/hr Q2H IV Last administered on 12/23/18 12:09 ; Start 12/23/18 at 09:15; Stop 12/23/18 at 13:14; Status DC Info (Tpn Per Pharmacy) 1 each PRN DAILY PRN MC SEE COMMENTS Last administered on 12/25/18at 10:56; Start 12/23/18 at 09:15 Furosemide (Lasix) 20 mg 1X ONCE IVP Last administered on 12/23/18at 12:03; Start 12/23/18 at 09:15; Stop 12/23/18 at 09:19; Status DC Albumin Human 100 ml @ 100 mls/hr 1X ONCE IV Last administered on 12/23/18at 09:48; Start 12/23/18 at 09:15; Stop 12/23/18 at 10:14; Status DC Pantoprazole Sodium (PROTONIX VIAL for IV PUSH) 40 mg DAILYAC IVP Last administered on 12/25/18at 08:25; Start 12/23/18 at 10:30 Cefazolin Sodium/ Dextrose (Ancef 2gm Premix) 2 gm STK-MED ONCE IV ; Start 12/22 at 12:00; Stop 12/23/18 at 12:38; Status DC Sodium Chloride 110 meq/Sodium Acetate 12 meq/ Potassium Chloride 36 meq/ Magnesium Sulfate 12 meq/Calcium Gluconate 9.3 meq/ Multivitamins 10 ml/Chromium / Copper/Manganese/ Seleni/Zn 1 ml/ Insulin Human Regular 70 unit/ Total Parenteral Nutrition/Amino Acids/Dextrose/ Fat Emulsion Intravenous 2,400 ml @ 100 mls/hr TPN CONT IV Last administered on 12/23/18at 22:15; Start 12/23/18 at 22:00; Stop 12/24/18 at 21:59; Status DC Piperacillin Sod/ Tazobactam Sod 3.375 gm/Sodium Chloride 50 ml @ 100 mls/hr Q6HRS IV Last administered on 12/25/18at 06:13; Start 12/23/18 at 18:00; Stop at 09:18; Status DC Linezolid/Dextrose 300 ml @ 300 mls/hr Q12HR IV Last administered on at 08:41; Start 12/24/18 at 09:00; Stop 12/25/18 at 09:18; Status DC Magnesium Sulfate 50 ml @ 25 mls/hr 1X ONCE IV Last administered on 12/24/18at 10:34; Start 12/24/18 at 10:30; Stop 12/24/18 at 12:29; Status DC Potassium Phosphate 10 mmol/ Dextrose 103.3333 ml @ 51.667 m... Q2H IV Last administered on 12/24/18at 13:02; Start 12/24/18 at 10:30; Stop 12/24/18 at 14:29 ; Status DC Furosemide (Lasix) 20 mg 1X ONCE IVP Last administered on 12/24/18at 13:03; Start 12/24/18 at 11:15; Stop 12/24/18 at 11:19; Status DC Albumin Human 100 ml @ 100 mls/hr 1X ONCE IV Last administered on 12/24/18at 12:41; Start 12/24/18 at 11:15; Stop 12/24/18 at 12:14; Status DC Potassium Chloride/Water 50 ml @ 50 mls/hr Q1H IV Last administered on at 14:10; Start 12/24/18 at 13:30; Stop 12/24/18 at 15:29; Status DC Sodium Chloride 110 meq/Sodium Acetate 12 meq/ Potassium Chloride 50 meq/ Potassium Phosphate 20 mmol/ Magnesium Sulfate 20 meq/Calcium Gluconate 9.3 meq / Multivitamins 10 ml/Chromium/ Copper/Manganese/ Seleni/Zn 1 ml/ Insulin Human Regular 80 unit/ Total Parenteral Nutrition/Amino Acids/Dextro... 2,400 ml @ 100 mls/hr TPN CONT IV Last administered on 12/24/18at 23:24; Start 12/24/18 at 22:00; Stop 12/25/18 at 21:59 Meropenem 500 mg/ Sodium Chloride 50 ml @ 100 mls/hr Q6HRS IV ; Start 12/25/18 at 12:00 Potassium Chloride/Water 50 ml @ 50 mls/hr Q1H IV Last administered on at 10:44; Start 12/25/18 at 10:00; Stop 12/25/18 at 11:59 Magnesium Sulfate 50 ml @ 25 mls/hr 1X ONCE IV Last administered on 12/25/18at 10:06; Start 12/25/18 at 09:30; Stop 12/25/18 at 11:29 Albumin Human 100 ml @ 100 mls/hr 1X ONCE IV Last administered on 12/25/18at 11:12; Start 12/25/18 at 10:15; Stop 12/25/18 at 11:14; Status DC Furosemide (Lasix) 40 mg 1X ONCE IVP ; Start 12/25/18 at 10:15; Stop 12/25/18 at 10:17; Status DC Active Scripts Active Reported Trophamine (Amino Acids 10 %) 500 Ml Iv.soln 500 Ml IV DAILY 2000 Duoneb 0.5-3(2.5) Mg/3 Ml (Albuterol/Ipratropium) 3 Ml Ampul.neb 3 Ml NEB BID Dulcolax (Bisacodyl) 10 Mg Supp.rect 10 Mg RC PRN DAILY PRN Duoneb 0.5-3(2.5) Mg/3 Ml (Albuterol/Ipratropium) 3 Ml Ampul.neb 3 Ml NEB PRN Q4HRS PRN Atorvastatin Calcium 40 Mg Tablet 1 Tab PO QHS Simethicone 80 Mg Tab.chew 80 Mg PO PRN TID PRN Humalog (Insulin Lispro) 100 Unit/1 Ml Vial 0 SQ Q6HRS Ondansetron Hcl 4 Mg/2 Ml Vial (Ondansetron Hcl/Pf) 4 Mg/2 Ml Vial 4 Mg IJ PRN Q6HRS PRN Actos (Pioglitazone Hcl) 15 Mg Tablet 1 Tab PO DAILY Tylenol Extra Strength (Acetaminophen) 500 Mg Tablet 1,000 Mg PO PRN Q6HRS PRN Senokot-S Tablet (Sennosides/Docusate Sodium) 1 Each Tablet 1 Tab PO BID Vitamin D3 (Cholecalciferol (Vitamin D3)) 1,000 Unit Tablet 1 Tab PO DAILY Carvedilol (Carvedilol) 12.5 Mg Tablet 12.5 Mg PO BIDWMEALS Allergies Allergies: Coded Allergies: No Known Drug Allergies (Unverified , 12/22/18) ROS Review of System UNABLE TO OBTAIN Physical Exam General: Other (INTUBATED) HEENT: Atraumatic, EOMI, Other (ET TUBE) Lungs: Other (DECREASED AT BASES) Heart: Regular rate, Normal S1, Normal S2 Abdomen: Other (HYPOACTIVE) Extremities: No clubbing, No cyanosis Skin: No breakdown Neuro: Other (SEDATED) Psych/Mental Status: Other (SEDATED) MUSCULOSKELETAL: No deformity, Other (+ EDEMA) Vitals VITALS Vital Signs Date Time Temp Pulse Resp B/P (MAP) Pulse Ox O2 Delivery O2 Flow Rate FiO2 12/25/18 09:00 67 17 146/57 (86) 98 Ventilator 12/25/18 07:00 97.7 97.7 Labs Labs Laboratory Tests Test 12/23/18 12:05 12/23/18 16:25 12/23/18 17:45 12/23/18 23:53 Glucose (Fingerstick) 180 mg/dL (70-99) 193 mg/dL (70-99) 233 mg/dL (70-99) HN-Qbt-[id number]-Type Natriuretic Peptide 90 pg/mL (0-124) Test 12/24/18 06:26 12/24/18 06:30 12/24/18 08:00 12/24/18 12:01 Glucose (Fingerstick) 277 mg/dL (70-99) 296 mg/dL (70-99) White Blood Count 4.5 x10^3/uL (4.0-11.0) Red Blood Count 2.74 x10^6/uL (4.30-5.70) Hemoglobin 7.0 g/dL (13.0-17.5) Hematocrit 21.9 % (39.0-53.0) Mean Corpuscular Volume 80 fL (79-100) Mean Corpuscular Hemoglobin 26 pg (25-35) Mean Corpuscular Hemoglobin Concent 32 g/dL (31-37) Red Cell Distribution Width 18.9 % (11.5-14.5) Platelet Count 178 x10^3/uL (140-400) Neutrophils (%) (Auto) 70 % (31-73) Lymphocytes (%) (Auto) 13 % (24-48) Monocytes (%) (Auto) 14 % (0-9) Eosinophils (%) (Auto) 3 % (0-3) Basophils (%) (Auto) 1 % (0-3) Neutrophils # (Auto) 3.1 x10^3uL (1.8-7.7) Lymphocytes # (Auto) 0.6 x10^3/uL (1.0-4.8) Monocytes # (Auto) 0.6 x10^3/uL (0.0-1.1) Eosinophils # (Auto) 0.1 x10^3/uL (0.0-0.7) Basophils # (Auto) 0.0 x10^3/uL (0.0-0.2) Sodium Level 140 mmol/L (136-145) Potassium Level 3.0 mmol/L (3.5-5.1) Chloride Level 106 mmol/L (98-107) Carbon Dioxide Level 29 mmol/L (21-32) Anion Gap 5 (6-14) Blood Urea Nitrogen 15 mg/dL (8-26) Creatinine 0.5 mg/dL (0.7-1.3) Estimated GFR (Cockcroft-Gault) 170.8 BUN/Creatinine Ratio 30 (6-20) Glucose Level 289 mg/dL (70-99) Calcium Level 7.2 mg/dL (8.5-10.1) Phosphorus Level 2.4 mg/dL (2.6-4.7) Magnesium Level 1.6 mg/dL (1.8-2.4) Total Bilirubin 1.5 mg/dL (0.2-1.0) Aspartate Amino Transf (AST/SGOT) 18 U/L (15-37) Alanine Aminotransferase (ALT/SGPT) 21 U/L (16-63) Alkaline Phosphatase 171 U/L (46-116) Total Protein 4.1 g/dL (6.4-8.2) Albumin 1.4 g/dL (3.4-5.0) Albumin/Globulin Ratio 0.5 (1.0-1.7) O2 Saturation 94 % (92-99) Arterial Blood pH 7.43 (7.35-7.45) Arterial Blood pCO2 at Patient Temp 39 mmHg (35-46) Arterial Blood pO2 at Patient Temp 88 mmHg (75-108) Arterial Blood HCO3 25 mmol/L (21-28) Arterial Blood Base Excess 1 mmol/L (-3-3) FiO2 40 Test 12/24/18 17:34 12/25/18 01:01 12/25/18 06:00 12/25/18 06:10 Glucose (Fingerstick) 245 mg/dL (70-99) 260 mg/dL (70-99) 221 mg/dL (70-99) White Blood Count 2.9 x10^3/uL (4.0-11.0) Red Blood Count 2.60 x10^6/uL (4.30-5.70) Hemoglobin 6.9 g/dL (13.0-17.5) Hematocrit 21.2 % (39.0-53.0) Mean Corpuscular Volume 81 fL (79-100) Mean Corpuscular Hemoglobin 27 pg (25-35) Mean Corpuscular Hemoglobin Concent 33 g/dL (31-37) Red Cell Distribution Width 18.8 % (11.5-14.5) Platelet Count 135 x10^3/uL (140-400) Neutrophils (%) (Auto) 66 % (31-73) Lymphocytes (%) (Auto) 15 % (24-48) Monocytes (%) (Auto) 15 % (0-9) Eosinophils (%) (Auto) 4 % (0-3) Basophils (%) (Auto) 0 % (0-3) Neutrophils # (Auto) 1.9 x10^3uL (1.8-7.7) Lymphocytes # (Auto) 0.4 x10^3/uL (1.0-4.8) Monocytes # (Auto) 0.4 x10^3/uL (0.0-1.1) Eosinophils # (Auto) 0.1 x10^3/uL (0.0-0.7) Basophils # (Auto) 0.0 x10^3/uL (0.0-0.2) Sodium Level 138 mmol/L (136-145) Potassium Level 3.4 mmol/L (3.5-5.1) Chloride Level 105 mmol/L (98-107) Carbon Dioxide Level 29 mmol/L (21-32) Anion Gap 4 (6-14) Blood Urea Nitrogen 13 mg/dL (8-26) Creatinine 0.4 mg/dL (0.7-1.3) Estimated GFR (Cockcroft-Gault) 220.9 BUN/Creatinine Ratio 33 (6-20) Glucose Level 249 mg/dL (70-99) Calcium Level 7.2 mg/dL (8.5-10.1) Phosphorus Level 3.1 mg/dL (2.6-4.7) Magnesium Level 1.7 mg/dL (1.8-2.4) Total Bilirubin 0.7 mg/dL (0.2-1.0) Aspartate Amino Transf (AST/SGOT) 11 U/L (15-37) Alanine Aminotransferase (ALT/SGPT) 16 U/L (16-63) Alkaline Phosphatase 130 U/L (46-116) Total Protein 3.8 g/dL (6.4-8.2) Albumin 1.3 g/dL (3.4-5.0) Albumin/Globulin Ratio 0.5 (1.0-1.7) Test 12/25/18 08:00 O2 Saturation 95 % (92-99) Arterial Blood pH 7.42 (7.35-7.45) Arterial Blood pCO2 at Patient Temp 42 mmHg (35-46) Arterial Blood pO2 at Patient Temp 85 mmHg (75-108) Arterial Blood HCO3 27 mmol/L (21-28) Arterial Blood Base Excess 2 mmol/L (-3-3) FiO2 40 Laboratory Tests Test 12/24/18 12:01 12/24/18 17:34 12/25/18 01:01 12/25/18 06:00 Glucose (Fingerstick) 296 mg/dL (70-99) 245 mg/dL (70-99) 260 mg/dL (70-99) White Blood Count 2.9 x10^3/uL (4.0-11.0) Red Blood Count 2.60 x10^6/uL (4.30-5.70) Hemoglobin 6.9 g/dL (13.0-17.5) Hematocrit 21.2 % (39.0-53.0) Mean Corpuscular Volume 81 fL (79-100) Mean Corpuscular Hemoglobin 27 pg (25-35) Mean Corpuscular Hemoglobin Concent 33 g/dL (31-37) Red Cell Distribution Width 18.8 % (11.5-14.5) Platelet Count 135 x10^3/uL (140-400) Neutrophils (%) (Auto) 66 % (31-73) Lymphocytes (%) (Auto) 15 % (24-48) Monocytes (%) (Auto) 15 % (0-9) Eosinophils (%) (Auto) 4 % (0-3) Basophils (%) (Auto) 0 % (0-3) Neutrophils # (Auto) 1.9 x10^3uL (1.8-7.7) Lymphocytes # (Auto) 0.4 x10^3/uL (1.0-4.8) Monocytes # (Auto) 0.4 x10^3/uL (0.0-1.1) Eosinophils # (Auto) 0.1 x10^3/uL (0.0-0.7) Basophils # (Auto) 0.0 x10^3/uL (0.0-0.2) Sodium Level 138 mmol/L (136-145) Potassium Level 3.4 mmol/L (3.5-5.1) Chloride Level 105 mmol/L (98-107) Carbon Dioxide Level 29 mmol/L (21-32) Anion Gap 4 (6-14) Blood Urea Nitrogen 13 mg/dL (8-26) Creatinine 0.4 mg/dL (0.7-1.3) Estimated GFR (Cockcroft-Gault) 220.9 BUN/Creatinine Ratio 33 (6-20) Glucose Level 249 mg/dL (70-99) Calcium Level 7.2 mg/dL (8.5-10.1) Phosphorus Level 3.1 mg/dL (2.6-4.7) Magnesium Level 1.7 mg/dL (1.8-2.4) Total Bilirubin 0.7 mg/dL (0.2-1.0) Aspartate Amino Transf (AST/SGOT) 11 U/L (15-37) Alanine Aminotransferase (ALT/SGPT) 16 U/L (16-63) Alkaline Phosphatase 130 U/L (46-116) Total Protein 3.8 g/dL (6.4-8.2) Albumin 1.3 g/dL (3.4-5.0) Albumin/Globulin Ratio 0.5 (1.0-1.7) Test 12/25/18 06:10 12/25/18 08:00 Glucose (Fingerstick) 221 mg/dL (70-99) O2 Saturation 95 % (92-99) Arterial Blood pH 7.42 (7.35-7.45) Arterial Blood pCO2 at Patient Temp 42 mmHg (35-46) Arterial Blood pO2 at Patient Temp 85 mmHg (75-108) Arterial Blood HCO3 27 mmol/L (21-28) Arterial Blood Base Excess 2 mmol/L (-3-3) FiO2 40 Assessment/Plan Assessment/Plan IMP PANCREATIC PSEUDOCYST RESECTION MALNUTRITION EDEMA DUE TO 3RD SPACING LOW K AND MAG DM II ETOH ABUSE HX PLAN CONT TPN FOR NOW CONT WITH K AND MAG REPLACEMENT PROTOCOL ANTIBIOTICS VENT SUPPORT SUPPORTIVE CARE PRESSORS NEEDED DIURESE WHEN ABLE WILL FOLLOW SARAHY BALDERAS MD Dec 25, 2018 11:33
[2018-12-25] MEDS: MEROPENEM 500 MG in IV NORMAL SALINE 50ML 50 ML IV SCH ×2 (13:13→17:43)
--- NOTE | 2018-12-25 14:27 | NUR ---
Pharmacy TPN Dosing Note S: JUSTIN OLSEN is a 58 year old M Currently receiving Central Continuous TPN started prior to admission B:Pertinent PMH: PANCREATITIS Height: 6 feet, 0 inches Weight: 114.944875 kg Current diet: NPO (noted: starting tube feeds at low rate today) LABS: Sodium: 138 Potassium: 3.4 Chloride: 105 Calcium: 7.2 Corrected Calcium: 9.36 Magnesium: 1.7 CO2: 29 SCr: 0.4 Glucose: 221-296 Albumin: 1.3 AST: 11 ALT: 16 TPN FORMULA: TPN TYPE: Central Continuous AMINO ACIDS: 100 gm DEXTROSE: 375 gm LIPIDS: 30 gm SODIUM CHLORIDE: 110 mEq SODIUM ACETATE: 12 mEq SODIUM PHOSPHATE: - mmol POTASSIUM CHLORIDE: 60 mEq POTASSIUM ACETATE: - mEq POTASSIUM PHOSPHATE: 20 mmol MAGNESIUM: 25 mEq CALCIUM: 9.3 mEq INSULIN: 85 units MULTIPLE VITAMIN: 10 ml TRACE ELEMENTS: 1 ml(s) TPN PLAN: -Pt was on fpc TPN over at [facility] -Pt noted to have 3rd spacing, but lungs remain clear today and continues to have good urine output, patient now off dopamine. Plan on receiving blood, albumin and 40 mg IV x 1 of furosemide today. For these reasons will not alter volume of TPN today -Phos improved this AM -Potassium slightly low this am. Given 40 mEq IV of KCl per Dr. Cha outside of TPN. Will increase KCl by only 10 mEq in TPN as KCl and KPhos increased yesterday and tube feeds to start today -Mag barely low at 1.7, another 2gm bolus given this morning per Dr. Cha. Plan to increase Mag slightly in TPN as higher dose of furosemide to be given today compared previous 2 days -BG still remains > 200 in addition to SSI outside of TPN. Insulin increased 12/24 to 80 units will plan to increase insulin to only 85 units today b/c of potential to titrate off TPN if tube feeds able to be advanced -CMP, Mg and Phos ordered for 12/26/18 R: Continue TPN with slight increase to magnesium, potassium Chloride, and insulin in TPN Will monitor electrolytes, glucose, and tolerance to TPN. JENNIFER COSTA, [facility], 12/25/18 [id number]
--- NOTE | 2018-12-25 14:34 | PDOC ---
CARDIO Progress Notes Date and Time Date of Service 12/25/2018 Time of Evaluation 1340 Subjective Subjective: Other (sedated) Vitals Vitals Vital Signs Date Time Temp Pulse Resp B/P (MAP) Pulse Ox O2 Delivery O2 Flow Rate FiO2 12/25/18 14:00 68 15 130/50 12/25/18 13:00 98 Ventilator 12/25/18 12:35 97.7 97.7 Weight Weight [ ] Input and Output Intake and Output Intake and Output 12/25/18 06:59 Intake Total 4965 ml Output Total 5905 ml Balance -940 ml IV Total 4105 ml Blood Product 360 ml Blood Product IV Normal Saline Flush 500 ml Output Urine Total 2995 ml Gastric Drainage Total 800 ml Drainage Total 2110 ml Laboratory Labs Laboratory Tests Test 12/24/18 17:34 12/25/18 01:01 12/25/18 06:00 12/25/18 06:10 Glucose (Fingerstick) 245 mg/dL (70-99) 260 mg/dL (70-99) 221 mg/dL (70-99) White Blood Count 2.9 x10^3/uL (4.0-11.0) Red Blood Count 2.60 x10^6/uL (4.30-5.70) Hemoglobin 6.9 g/dL (13.0-17.5) Hematocrit 21.2 % (39.0-53.0) Mean Corpuscular Volume 81 fL (79-100) Mean Corpuscular Hemoglobin 27 pg (25-35) Mean Corpuscular Hemoglobin Concent 33 g/dL (31-37) Red Cell Distribution Width 18.8 % (11.5-14.5) Platelet Count 135 x10^3/uL (140-400) Neutrophils (%) (Auto) 66 % (31-73) Lymphocytes (%) (Auto) 15 % (24-48) Monocytes (%) (Auto) 15 % (0-9) Eosinophils (%) (Auto) 4 % (0-3) Basophils (%) (Auto) 0 % (0-3) Neutrophils # (Auto) 1.9 x10^3uL (1.8-7.7) Lymphocytes # (Auto) 0.4 x10^3/uL (1.0-4.8) Monocytes # (Auto) 0.4 x10^3/uL (0.0-1.1) Eosinophils # (Auto) 0.1 x10^3/uL (0.0-0.7) Basophils # (Auto) 0.0 x10^3/uL (0.0-0.2) Sodium Level 138 mmol/L (136-145) Potassium Level 3.4 mmol/L (3.5-5.1) Chloride Level 105 mmol/L (98-107) Carbon Dioxide Level 29 mmol/L (21-32) Anion Gap 4 (6-14) Blood Urea Nitrogen 13 mg/dL (8-26) Creatinine 0.4 mg/dL (0.7-1.3) Estimated GFR (Cockcroft-Gault) 220.9 BUN/Creatinine Ratio 33 (6-20) Glucose Level 249 mg/dL (70-99) Calcium Level 7.2 mg/dL (8.5-10.1) Phosphorus Level 3.1 mg/dL (2.6-4.7) Magnesium Level 1.7 mg/dL (1.8-2.4) Total Bilirubin 0.7 mg/dL (0.2-1.0) Aspartate Amino Transf (AST/SGOT) 11 U/L (15-37) Alanine Aminotransferase (ALT/SGPT) 16 U/L (16-63) Alkaline Phosphatase 130 U/L (46-116) Total Protein 3.8 g/dL (6.4-8.2) Albumin 1.3 g/dL (3.4-5.0) Albumin/Globulin Ratio 0.5 (1.0-1.7) Test 12/25/18 08:00 12/25/18 13:18 O2 Saturation 95 % (92-99) Arterial Blood pH 7.42 (7.35-7.45) Arterial Blood pCO2 at Patient Temp 42 mmHg (35-46) Arterial Blood pO2 at Patient Temp 85 mmHg (75-108) Arterial Blood HCO3 27 mmol/L (21-28) Arterial Blood Base Excess 2 mmol/L (-3-3) FiO2 40 Glucose (Fingerstick) 231 mg/dL (70-99) Microbiology Micro Microbiology 12/22/18 Anaerobic/Aerobic Culture, Resulted Pending 12/22/18 Anaerobic Culture Result 1 (MELONY), Resulted Pending 12/22/18 Aerobic Culture, Resulted Pending 12/22/18 Aerobic Culture Result 1 (MELONY), Resulted Pending 12/22/18 Gram Stain - Final, Resulted 12/22/18 Gram Stain Result 1 (MELONY) - Final, Resulted 12/22/18 Gram Stain Result 2 (MELONY) - Final, Resulted Physical Exam HEENT: Neck Supple W Full Motion Chest: Symmetric LUNGS: Other (intubated) Heart: S1S2, RRR (SR no significant ectopies), other (distant heart tones) Abdomen: Other (soft obese) Extremities: Other (3-4+ bilateral LE edema , anasarca) Neurology: other (sedated) Assessment Assessment 1. Pancreatic pseudocyst with obstruction of the stomach; s/p pancreatic pseudocystgastrostomy with cholecystectomy and G-tube placement 2. Acute respiratory failure s/p intubation, remains on vent 3. CAD s/p previous CABG and PCI/stent. Echo revealed preserved LV systolic function 4. Hypertension with present hypotension: BP better 5. Anemia, hgb remains. low. s/p total 3 unit PRBCs 6. Hyperlipidemia 7. AFIB; maintaining SR 8. Diabetes, II 9. Anasarca; albumin, Lasix. Nephrology following Recommendations DC dopamine. Transfusion ongoing Monitor lytes, replace as warranted Supportive care ASA on hold with ongoing anemia requiring transfusion ENRICO SARAVIA APRN Dec 25, 2018 14:34
[2018-12-25] MEDS: MORPHINE SULFATE/PF 30 ML IV PRN (18:47)
[2018-12-25] MEDS: IV NORMAL SALINE 1000ML BAG 1,000 ML IV SCH (21:00)
[2018-12-25] MEDS ORDERED: DEXTROSE 70% IV SCH ×12 (22:00)
[2018-12-25] MEDS ORDERED: [UNRECOGNIZED DRUG - OTHER] IV SCH ×12 (22:00)
[2018-12-25] MEDS ORDERED: AMINO ACID IV SCH ×12 (22:00)
[2018-12-25] MEDS ORDERED: TOTAL PARENTERAL NUTRITION IV SCH ×12 (22:00)
[2018-12-26] VITALS (24 sets, daily range): BP systolic 95–144; BP diastolic 48–79
[2018-12-26] MEDS: MEROPENEM 500 MG in IV NORMAL SALINE 50ML 50 ML IV SCH ×5 (00:32→23:48)
[2018-12-26] MEDS: INSULIN LISPRO 300 UNITS/3 ML INSULN.PEN. SQ SCH ×5 (00:35→23:52)
[2018-12-26] MEDS: MIDAZOLAM 100mg/100ml NS BAG 100 ML IV PRN (06:05)
[2018-12-26 06:30] LABS: BASO % 1 % (0-3); EOS # 0.2 x10^3/uL (0.0-0.7); EOS % 5 % (0-3); HEMATOCRIT 23.6 % (39.0-53.0); HEMOGLOBIN 7.5 g/dL (13.0-17.5); LYMPH # 0.5 x10^3/uL (1.0-4.8); LYMPH % 16 % (24-48); MEAN CORPUSCULAR HEMOGLOBIN 27 pg (25-35); MEAN CORPUSCULAR HGB CONC 32 g/dL (31-37); MEAN CORPUSCULAR VOLUME 83 fL (79-100); MONO # 0.5 x10^3/uL (0.0-1.1); MONO % 14 % (0-9); NEUT # 2.2 x10^3uL (1.8-7.7); NEUT % 65 % (31-73); PLATELET COUNT 151 x10^3/uL (140-400); RED BLOOD COUNT 2.84 x10^6/uL (4.30-5.70); RED CELL DISTRIBUTION WIDTH 18.8 % (11.5-14.5); WHITE BLOOD COUNT 3.4 x10^3/uL (4.0-11.0)
[2018-12-26 06:39] LABS: MAGNESIUM 1.5 mg/dL (1.8-2.4); PHOSPHORUS 3.8 mg/dL (2.6-4.7)
[2018-12-26 06:42] LABS: ALBUMIN 1.5 g/dL (3.4-5.0); ALBUMIN/GLOBULIN RATIO 0.6 (1.0-1.7); CALCIUM 7.4 mg/dL (8.5-10.1); CREATININE 0.5 mg/dL (0.7-1.3); GFR 170.8; POTASSIUM 3.6 mmol/L (3.5-5.1); TOTAL BILIRUBIN 0.6 mg/dL (0.2-1.0); TOTAL PROTEIN 4.1 g/dL (6.4-8.2)
[2018-12-26] MEDS: CHLORHEXIDINE 0.12% 15 ML MOUTHWASH. MM SCH (07:43)
[2018-12-26] MEDS: ENOXAPARIN 40 MG/0.4 ML SYRINGE. SQ SCH (07:44)
[2018-12-26] MEDS: PANTOPRAZOLE IV PUSH 40 MG VIAL. IVP SCH (08:28)
--- NOTE | 2018-12-26 08:56 | PDOC ---
Infectious Disease Note Subjective Subjective Remains intubated, FiO2 40% No fevers last 24 hours No BM since admission s/p 2 units PRBC yesterday High MISTY output per RN TPN Tube feeding via g-tube 10ml/hr ROS ROS Unobtainable as patient is intubated and sedated Vital Sign Vital Signs Vital Signs Date Time Temp Pulse Resp B/P (MAP) Pulse Ox O2 Delivery O2 Flow Rate FiO2 12/26/18 07:00 74 16 124/49 (74) 96 Ventilator 12/26/18 04:00 97.9 97.9 Physical Exam PHYSICAL EXAM GENERAL: Intubated, sedated HEENT: PERRL, ETT LUNGS: Mechanical breath sounds . HEART: S1 and S2. No gallops or murmurs. ABDOMEN: Obese, soft, BS present, MISTY - sanguinous drainage, G-tube in place, midline incision well-approx, clean. : Pepe in place, scrotal swelling EXTREMITIES: Generalized edema. DERMATOLOGICAL: Multiple tattoos. Warm and dry. No generalized rash. CENTRAL NERVOUS SYSTEM: Sedated and intubated. RUE-PICC ( POA), RIJ ( 12/22) and LUE art-lines Labs Lab Laboratory Tests Test 12/25/18 13:18 12/25/18 17:43 12/26/18 00:35 12/26/18 06:07 Glucose (Fingerstick) 231 mg/dL (70-99) 231 mg/dL (70-99) 175 mg/dL (70-99) 165 mg/dL (70-99) Test 12/26/18 06:10 White Blood Count 3.4 x10^3/uL (4.0-11.0) Red Blood Count 2.84 x10^6/uL (4.30-5.70) Hemoglobin 7.5 g/dL (13.0-17.5) Hematocrit 23.6 % (39.0-53.0) Mean Corpuscular Volume 83 fL (79-100) Mean Corpuscular Hemoglobin 27 pg (25-35) Mean Corpuscular Hemoglobin Concent 32 g/dL (31-37) Red Cell Distribution Width 18.8 % (11.5-14.5) Platelet Count 151 x10^3/uL (140-400) Neutrophils (%) (Auto) 65 % (31-73) Lymphocytes (%) (Auto) 16 % (24-48) Monocytes (%) (Auto) 14 % (0-9) Eosinophils (%) (Auto) 5 % (0-3) Basophils (%) (Auto) 1 % (0-3) Neutrophils # (Auto) 2.2 x10^3uL (1.8-7.7) Lymphocytes # (Auto) 0.5 x10^3/uL (1.0-4.8) Monocytes # (Auto) 0.5 x10^3/uL (0.0-1.1) Eosinophils # (Auto) 0.2 x10^3/uL (0.0-0.7) Basophils # (Auto) 0.0 x10^3/uL (0.0-0.2) Sodium Level 139 mmol/L (136-145) Potassium Level 3.6 mmol/L (3.5-5.1) Chloride Level 103 mmol/L (98-107) Carbon Dioxide Level 31 mmol/L (21-32) Anion Gap 5 (6-14) Blood Urea Nitrogen 11 mg/dL (8-26) Creatinine 0.5 mg/dL (0.7-1.3) Estimated GFR (Cockcroft-Gault) 170.8 BUN/Creatinine Ratio 22 (6-20) Glucose Level 188 mg/dL (70-99) Calcium Level 7.4 mg/dL (8.5-10.1) Phosphorus Level 3.8 mg/dL (2.6-4.7) Magnesium Level 1.5 mg/dL (1.8-2.4) Total Bilirubin 0.6 mg/dL (0.2-1.0) Aspartate Amino Transf (AST/SGOT) 9 U/L (15-37) Alanine Aminotransferase (ALT/SGPT) 12 U/L (16-63) Alkaline Phosphatase 123 U/L (46-116) Total Protein 4.1 g/dL (6.4-8.2) Albumin 1.5 g/dL (3.4-5.0) Albumin/Globulin Ratio 0.6 (1.0-1.7) Micro ANAEROBIC RES 1 Preliminary Comment No anaerobes recovered in 48 hours. AEROBIC CULT Final Final report AEROBIC RES 1 Final Comment No growth in 56 - 72 hours. Objective Assessment Severe cholecystitis, status post cholecystectomy, 12/22/2018. Large pancreatic pseudocyst, status post open pancreatic pseudocyst gastrostomy , open cholecystectomy and gastrostomy tube placement on 12/22/2018. Leucopenia , Mild thrombocytopenia ? cult neg, ? drug induced, though Zyvox was started on 12/24 so unlikely Anemia, likely postop blood loss.S/P PRBC transfusion, 12/25 Acute respiratory failure postop intubated. History of heavy alcohol dependence. Systolic congestive heart failure. Coronary artery disease, status post coronary artery bypass graft. Acute metabolic encephalopathy. History of fall with nasal fracture. History of atrial fibrillation. Severe protein-calorie malnutrition. Obesity hypoventilation syndrome, likely obstructive sleep apnea, has bilevel positive airway pressure at night. Plan Plan of Care Merrem since 12/25 Previously on Zyvox and Zosyn Monitor labs/temp f/u cultures Supportive care. D/w brother D/w nursing Attending Co-Sign Attending Co-Sign The patient was seen and interviewed as well as examined at the bedside. The chart was reviewed. The case was discussed. Agree with the plan of care. RACHEL CHEN APRN Dec 26, 2018 08:56 CHET WOODSON MD Dec 26, 2018 12:15
[2018-12-26 09:32] LABS: BASE EXCESS ABG 5 mmol/L (-3-3); HCO3 ABG 31 mmol/L (21-28); PCO2 ABG 50 mmHg (35-46); PO2 ABG 70 mmHg (75-108); SAT O2 ABG 93 % (92-99)
[2018-12-26 09:33] LABS: FIO2 ABG 40%
--- NOTE | 2018-12-26 10:02 | PDOC ---
IM PROGRESS NOTES- Subjective Subjective Patient is sedated and unable to do systems review. Objective Vitals Vital Signs Date Time Temp Pulse Resp B/P (MAP) Pulse Ox O2 Delivery O2 Flow Rate FiO2 12/26/18 09:03 93 Ventilator 12/26/18 09:00 76 16 114/50 (71) 12/26/18 08:00 98.5 98.5 Input & Output Intake and Output 12/26/18 07:00 Intake Total 5490.2 ml Output Total 6195 ml Balance -704.8 ml Intake Oral 0 ml IV Total 5351.2 ml Tube Feeding 139 ml Output Urine Total 3505 ml Gastric Drainage Total 250 ml Drainage Total 2440 ml Physical Exam Physical Exam GENERAL: The patient is sedated on mechanical ventilation. Tracheostomy tube in place, eyes closed. HEENT: Partial exam. No other changes. LUNGS: Decreased breath sounds at bases. CARDIOVASCULAR: S1, S2 regular. ABDOMEN: The patient is status post surgery with dressing in place. Bowel sounds hyperactive. EXTREMITIES: 3-4+ edema. The patient also has anasarca. CENTRAL NERVOUS SYSTEM: Sedated. Labs Laboratory Tests Test 12/24/18 12:01 12/24/18 17:34 12/25/18 01:01 12/25/18 06:00 Glucose (Fingerstick) 296 mg/dL (70-99) 245 mg/dL (70-99) 260 mg/dL (70-99) White Blood Count 2.9 x10^3/uL (4.0-11.0) Red Blood Count 2.60 x10^6/uL (4.30-5.70) Hemoglobin 6.9 g/dL (13.0-17.5) Hematocrit 21.2 % (39.0-53.0) Mean Corpuscular Volume 81 fL (79-100) Mean Corpuscular Hemoglobin 27 pg (25-35) Mean Corpuscular Hemoglobin Concent 33 g/dL (31-37) Red Cell Distribution Width 18.8 % (11.5-14.5) Platelet Count 135 x10^3/uL (140-400) Neutrophils (%) (Auto) 66 % (31-73) Lymphocytes (%) (Auto) 15 % (24-48) Monocytes (%) (Auto) 15 % (0-9) Eosinophils (%) (Auto) 4 % (0-3) Basophils (%) (Auto) 0 % (0-3) Neutrophils # (Auto) 1.9 x10^3uL (1.8-7.7) Lymphocytes # (Auto) 0.4 x10^3/uL (1.0-4.8) Monocytes # (Auto) 0.4 x10^3/uL (0.0-1.1) Eosinophils # (Auto) 0.1 x10^3/uL (0.0-0.7) Basophils # (Auto) 0.0 x10^3/uL (0.0-0.2) Sodium Level 138 mmol/L (136-145) Potassium Level 3.4 mmol/L (3.5-5.1) Chloride Level 105 mmol/L (98-107) Carbon Dioxide Level 29 mmol/L (21-32) Anion Gap 4 (6-14) Blood Urea Nitrogen 13 mg/dL (8-26) Creatinine 0.4 mg/dL (0.7-1.3) Estimated GFR (Cockcroft-Gault) 220.9 BUN/Creatinine Ratio 33 (6-20) Glucose Level 249 mg/dL (70-99) Calcium Level 7.2 mg/dL (8.5-10.1) Phosphorus Level 3.1 mg/dL (2.6-4.7) Magnesium Level 1.7 mg/dL (1.8-2.4) Total Bilirubin 0.7 mg/dL (0.2-1.0) Aspartate Amino Transf (AST/SGOT) 11 U/L (15-37) Alanine Aminotransferase (ALT/SGPT) 16 U/L (16-63) Alkaline Phosphatase 130 U/L (46-116) Total Protein 3.8 g/dL (6.4-8.2) Albumin 1.3 g/dL (3.4-5.0) Albumin/Globulin Ratio 0.5 (1.0-1.7) Test 12/25/18 06:10 12/25/18 08:00 12/25/18 13:18 12/25/18 17:43 Glucose (Fingerstick) 221 mg/dL (70-99) 231 mg/dL (70-99) 231 mg/dL (70-99) O2 Saturation 95 % (92-99) Arterial Blood pH 7.42 (7.35-7.45) Arterial Blood pCO2 at Patient Temp 42 mmHg (35-46) Arterial Blood pO2 at Patient Temp 85 mmHg (75-108) Arterial Blood HCO3 27 mmol/L (21-28) Arterial Blood Base Excess 2 mmol/L (-3-3) FiO2 40 Test 12/26/18 00:35 12/26/18 06:07 12/26/18 06:10 12/26/18 09:00 Glucose (Fingerstick) 175 mg/dL (70-99) 165 mg/dL (70-99) White Blood Count 3.4 x10^3/uL (4.0-11.0) Red Blood Count 2.84 x10^6/uL (4.30-5.70) Hemoglobin 7.5 g/dL (13.0-17.5) Hematocrit 23.6 % (39.0-53.0) Mean Corpuscular Volume 83 fL (79-100) Mean Corpuscular Hemoglobin 27 pg (25-35) Mean Corpuscular Hemoglobin Concent 32 g/dL (31-37) Red Cell Distribution Width 18.8 % (11.5-14.5) Platelet Count 151 x10^3/uL (140-400) Neutrophils (%) (Auto) 65 % (31-73) Lymphocytes (%) (Auto) 16 % (24-48) Monocytes (%) (Auto) 14 % (0-9) Eosinophils (%) (Auto) 5 % (0-3) Basophils (%) (Auto) 1 % (0-3) Neutrophils # (Auto) 2.2 x10^3uL (1.8-7.7) Lymphocytes # (Auto) 0.5 x10^3/uL (1.0-4.8) Monocytes # (Auto) 0.5 x10^3/uL (0.0-1.1) Eosinophils # (Auto) 0.2 x10^3/uL (0.0-0.7) Basophils # (Auto) 0.0 x10^3/uL (0.0-0.2) Sodium Level 139 mmol/L (136-145) Potassium Level 3.6 mmol/L (3.5-5.1) Chloride Level 103 mmol/L (98-107) Carbon Dioxide Level 31 mmol/L (21-32) Anion Gap 5 (6-14) Blood Urea Nitrogen 11 mg/dL (8-26) Creatinine 0.5 mg/dL (0.7-1.3) Estimated GFR (Cockcroft-Gault) 170.8 BUN/Creatinine Ratio 22 (6-20) Glucose Level 188 mg/dL (70-99) Calcium Level 7.4 mg/dL (8.5-10.1) Phosphorus Level 3.8 mg/dL (2.6-4.7) Magnesium Level 1.5 mg/dL (1.8-2.4) Total Bilirubin 0.6 mg/dL (0.2-1.0) Aspartate Amino Transf (AST/SGOT) 9 U/L (15-37) Alanine Aminotransferase (ALT/SGPT) 12 U/L (16-63) Alkaline Phosphatase 123 U/L (46-116) Total Protein 4.1 g/dL (6.4-8.2) Albumin 1.5 g/dL (3.4-5.0) Albumin/Globulin Ratio 0.6 (1.0-1.7) O2 Saturation 93 % (92-99) Arterial Blood pH 7.41 (7.35-7.45) Arterial Blood pCO2 at Patient Temp 50 mmHg (35-46) Arterial Blood pO2 at Patient Temp 70 mmHg (75-108) Arterial Blood HCO3 31 mmol/L (21-28) Arterial Blood Base Excess 5 mmol/L (-3-3) FiO2 40% Laboratory Tests Test 12/25/18 13:18 12/25/18 17:43 12/26/18 00:35 12/26/18 06:07 Glucose (Fingerstick) 231 mg/dL (70-99) 231 mg/dL (70-99) 175 mg/dL (70-99) 165 mg/dL (70-99) Test 12/26/18 06:10 12/26/18 09:00 White Blood Count 3.4 x10^3/uL (4.0-11.0) Red Blood Count 2.84 x10^6/uL (4.30-5.70) Hemoglobin 7.5 g/dL (13.0-17.5) Hematocrit 23.6 % (39.0-53.0) Mean Corpuscular Volume 83 fL (79-100) Mean Corpuscular Hemoglobin 27 pg (25-35) Mean Corpuscular Hemoglobin Concent 32 g/dL (31-37) Red Cell Distribution Width 18.8 % (11.5-14.5) Platelet Count 151 x10^3/uL (140-400) Neutrophils (%) (Auto) 65 % (31-73) Lymphocytes (%) (Auto) 16 % (24-48) Monocytes (%) (Auto) 14 % (0-9) Eosinophils (%) (Auto) 5 % (0-3) Basophils (%) (Auto) 1 % (0-3) Neutrophils # (Auto) 2.2 x10^3uL (1.8-7.7) Lymphocytes # (Auto) 0.5 x10^3/uL (1.0-4.8) Monocytes # (Auto) 0.5 x10^3/uL (0.0-1.1) Eosinophils # (Auto) 0.2 x10^3/uL (0.0-0.7) Basophils # (Auto) 0.0 x10^3/uL (0.0-0.2) Sodium Level 139 mmol/L (136-145) Potassium Level 3.6 mmol/L (3.5-5.1) Chloride Level 103 mmol/L (98-107) Carbon Dioxide Level 31 mmol/L (21-32) Anion Gap 5 (6-14) Blood Urea Nitrogen 11 mg/dL (8-26) Creatinine 0.5 mg/dL (0.7-1.3) Estimated GFR (Cockcroft-Gault) 170.8 BUN/Creatinine Ratio 22 (6-20) Glucose Level 188 mg/dL (70-99) Calcium Level 7.4 mg/dL (8.5-10.1) Phosphorus Level 3.8 mg/dL (2.6-4.7) Magnesium Level 1.5 mg/dL (1.8-2.4) Total Bilirubin 0.6 mg/dL (0.2-1.0) Aspartate Amino Transf (AST/SGOT) 9 U/L (15-37) Alanine Aminotransferase (ALT/SGPT) 12 U/L (16-63) Alkaline Phosphatase 123 U/L (46-116) Total Protein 4.1 g/dL (6.4-8.2) Albumin 1.5 g/dL (3.4-5.0) Albumin/Globulin Ratio 0.6 (1.0-1.7) O2 Saturation 93 % (92-99) Arterial Blood pH 7.41 (7.35-7.45) Arterial Blood pCO2 at Patient Temp 50 mmHg (35-46) Arterial Blood pO2 at Patient Temp 70 mmHg (75-108) Arterial Blood HCO3 31 mmol/L (21-28) Arterial Blood Base Excess 5 mmol/L (-3-3) FiO2 40% Meds Current Medications Albumin Human 100 ml @ 100 mls/hr 1X ONCE IV Last administered on 12/25/18at 11:12; Start 12/25/18 at 10:15; Stop 12/25/18 at 11:14; Status DC Furosemide (Lasix) 40 mg 1X ONCE IVP ; Start 12/25/18 at 10:15; Stop 12/25/18 at 10:16; Status Cancel Furosemide (Lasix) 40 mg 1X ONCE IVP Last administered on 12/25/18at 16:11; Start 12/25/18 at 16:15; Stop 12/25/18 at 16:16; Status DC Meropenem 500 mg/ Sodium Chloride 50 ml @ 100 mls/hr Q6HRS IV Last administered on 12/26/18at 06:05; Start 12/25/18 at 12:00 Sodium Chloride 110 meq/Sodium Acetate 12 meq/ Potassium Chloride 60 meq/ Potassium Phosphate 20 mmol/ Magnesium Sulfate 25 meq/Calcium Gluconate 9.3 meq / Multivitamins 10 ml/Chromium/ Copper/Manganese/ Seleni/Zn 1 ml/ Insulin Human Regular 85 unit/ Total Parenteral Nutrition/Amino Acids/Dextro... 2,400 ml @ 100 mls/hr TPN CONT IV Last administered on 12/25/18at 21:16; Start 12/25/18 at 22:00; Stop 12/26/18 at 21:59 Assessment Assessment 1. Acute respiratory failure. 2. Acute hypotension, on dopamine. The patient's urine output is stable, but the patient has a significant fluid retention due to third spacing. 3. Acute pancreatitis with pseudocyst. 4. Systolic congestive heart failure. 5. Coronary artery disease, history of coronary artery bypass graft x 5. 6. Acute metabolic encephalopathy. 7. History of fall with nasal fracture. 8. History of atrial fibrillation. 9. Hyperlipidemia. 10. Severe protein-calorie malnutrition. 11. Anemia. 12. Obesity hypoventilation syndrome, with likely obstructive sleep apnea, has been on BiPAP at night. PLAN: The patient is retaining significant amount of fluids, so I will give him 1 amp of 25% albumin along with 1 unit of packed red cells as well as Lasix. Continue IV dopamine to maintain systolic blood pressure. Monitor urine output. I ordered 1 unit of packed red cells because of significant blood loss yesterday along with significant hypotension with his coronary artery disease, congestive heart failure and third spacing due to hypotension even though his hemoglobin is 7.5. We will consult Dr. Moralez for cardiology evaluation and management, Dr. Cornejo for infectious disease evaluation and management and Dr. Romero has been consulted for pulmonary evaluation and management. Continue management of the mechanical ventilation. Continue to hold some of the previous medications. We will start TPN this evening and continue to monitor blood sugars every 6 hours and regular insulin to TPN and also start him on IV Protonix. Prognosis of this patient is very poor. For details, please refer to the orders. I will also consult Dr. Giraldo for GI evaluation and management. Fluid retention- ,give 1 amp of the IV albumin as well as 20 mg of IV Lasix. Consult Dr. Ken for management of fluid retention. He has severe anasarca. Albumin is only 1.5. He has lot of drainage in the MISTY drain Severe protein calorie malnutrition- continue TPN Diabetes mellitus type 2- not controlled. Continue regular insulin in TPN as well as sliding scale insulin. Hypokalemia-improving Hypomagnesemia- replaced. Discussed with patient's brother Weston. Hypotension- resolved off dopamine . Coronary artery disease- echocardiogram shows ejection fraction of 60%. Acute cholecystitis off. IV Zosyn. On Merrem and Zyvox Anemia- hemoglobin is 7.5. Plan Plan For more details regarding further plans, please refer to the orders. REHANA CASE MD Dec 26, 2018 10:02
[2018-12-26] MEDS ORDERED: ALBUMIN HUMAN 25% 100 ML IV ONE (10:30)
--- NOTE | 2018-12-26 10:34 | PDOC ---
G I PROGRESS NOTE Subjective Sedated on ventilator. Grimaces with abdominal exam. Objective On "trickle" feeding per g-tube. Physical Exam Lungs clear. RRR Abdomen soft, silent. Serosanguinous drainage from MISTY--300cc per staff. LE edema Review of Relevant I have reviewed the following items johanny (where applicable) has been applied. Labs Laboratory Tests Test 12/24/18 12:01 12/24/18 17:34 12/25/18 01:01 12/25/18 06:00 Glucose (Fingerstick) 296 mg/dL (70-99) 245 mg/dL (70-99) 260 mg/dL (70-99) White Blood Count 2.9 x10^3/uL (4.0-11.0) Red Blood Count 2.60 x10^6/uL (4.30-5.70) Hemoglobin 6.9 g/dL (13.0-17.5) Hematocrit 21.2 % (39.0-53.0) Mean Corpuscular Volume 81 fL (79-100) Mean Corpuscular Hemoglobin 27 pg (25-35) Mean Corpuscular Hemoglobin Concent 33 g/dL (31-37) Red Cell Distribution Width 18.8 % (11.5-14.5) Platelet Count 135 x10^3/uL (140-400) Neutrophils (%) (Auto) 66 % (31-73) Lymphocytes (%) (Auto) 15 % (24-48) Monocytes (%) (Auto) 15 % (0-9) Eosinophils (%) (Auto) 4 % (0-3) Basophils (%) (Auto) 0 % (0-3) Neutrophils # (Auto) 1.9 x10^3uL (1.8-7.7) Lymphocytes # (Auto) 0.4 x10^3/uL (1.0-4.8) Monocytes # (Auto) 0.4 x10^3/uL (0.0-1.1) Eosinophils # (Auto) 0.1 x10^3/uL (0.0-0.7) Basophils # (Auto) 0.0 x10^3/uL (0.0-0.2) Sodium Level 138 mmol/L (136-145) Potassium Level 3.4 mmol/L (3.5-5.1) Chloride Level 105 mmol/L (98-107) Carbon Dioxide Level 29 mmol/L (21-32) Anion Gap 4 (6-14) Blood Urea Nitrogen 13 mg/dL (8-26) Creatinine 0.4 mg/dL (0.7-1.3) Estimated GFR (Cockcroft-Gault) 220.9 BUN/Creatinine Ratio 33 (6-20) Glucose Level 249 mg/dL (70-99) Calcium Level 7.2 mg/dL (8.5-10.1) Phosphorus Level 3.1 mg/dL (2.6-4.7) Magnesium Level 1.7 mg/dL (1.8-2.4) Total Bilirubin 0.7 mg/dL (0.2-1.0) Aspartate Amino Transf (AST/SGOT) 11 U/L (15-37) Alanine Aminotransferase (ALT/SGPT) 16 U/L (16-63) Alkaline Phosphatase 130 U/L (46-116) Total Protein 3.8 g/dL (6.4-8.2) Albumin 1.3 g/dL (3.4-5.0) Albumin/Globulin Ratio 0.5 (1.0-1.7) Test 12/25/18 06:10 12/25/18 08:00 12/25/18 13:18 12/25/18 17:43 Glucose (Fingerstick) 221 mg/dL (70-99) 231 mg/dL (70-99) 231 mg/dL (70-99) O2 Saturation 95 % (92-99) Arterial Blood pH 7.42 (7.35-7.45) Arterial Blood pCO2 at Patient Temp 42 mmHg (35-46) Arterial Blood pO2 at Patient Temp 85 mmHg (75-108) Arterial Blood HCO3 27 mmol/L (21-28) Arterial Blood Base Excess 2 mmol/L (-3-3) FiO2 40 Test 12/26/18 00:35 12/26/18 06:07 12/26/18 06:10 12/26/18 09:00 Glucose (Fingerstick) 175 mg/dL (70-99) 165 mg/dL (70-99) White Blood Count 3.4 x10^3/uL (4.0-11.0) Red Blood Count 2.84 x10^6/uL (4.30-5.70) Hemoglobin 7.5 g/dL (13.0-17.5) Hematocrit 23.6 % (39.0-53.0) Mean Corpuscular Volume 83 fL (79-100) Mean Corpuscular Hemoglobin 27 pg (25-35) Mean Corpuscular Hemoglobin Concent 32 g/dL (31-37) Red Cell Distribution Width 18.8 % (11.5-14.5) Platelet Count 151 x10^3/uL (140-400) Neutrophils (%) (Auto) 65 % (31-73) Lymphocytes (%) (Auto) 16 % (24-48) Monocytes (%) (Auto) 14 % (0-9) Eosinophils (%) (Auto) 5 % (0-3) Basophils (%) (Auto) 1 % (0-3) Neutrophils # (Auto) 2.2 x10^3uL (1.8-7.7) Lymphocytes # (Auto) 0.5 x10^3/uL (1.0-4.8) Monocytes # (Auto) 0.5 x10^3/uL (0.0-1.1) Eosinophils # (Auto) 0.2 x10^3/uL (0.0-0.7) Basophils # (Auto) 0.0 x10^3/uL (0.0-0.2) Sodium Level 139 mmol/L (136-145) Potassium Level 3.6 mmol/L (3.5-5.1) Chloride Level 103 mmol/L (98-107) Carbon Dioxide Level 31 mmol/L (21-32) Anion Gap 5 (6-14) Blood Urea Nitrogen 11 mg/dL (8-26) Creatinine 0.5 mg/dL (0.7-1.3) Estimated GFR (Cockcroft-Gault) 170.8 BUN/Creatinine Ratio 22 (6-20) Glucose Level 188 mg/dL (70-99) Calcium Level 7.4 mg/dL (8.5-10.1) Phosphorus Level 3.8 mg/dL (2.6-4.7) Magnesium Level 1.5 mg/dL (1.8-2.4) Total Bilirubin 0.6 mg/dL (0.2-1.0) Aspartate Amino Transf (AST/SGOT) 9 U/L (15-37) Alanine Aminotransferase (ALT/SGPT) 12 U/L (16-63) Alkaline Phosphatase 123 U/L (46-116) Total Protein 4.1 g/dL (6.4-8.2) Albumin 1.5 g/dL (3.4-5.0) Albumin/Globulin Ratio 0.6 (1.0-1.7) O2 Saturation 93 % (92-99) Arterial Blood pH 7.41 (7.35-7.45) Arterial Blood pCO2 at Patient Temp 50 mmHg (35-46) Arterial Blood pO2 at Patient Temp 70 mmHg (75-108) Arterial Blood HCO3 31 mmol/L (21-28) Arterial Blood Base Excess 5 mmol/L (-3-3) FiO2 40% Laboratory Tests Test 12/25/18 13:18 12/25/18 17:43 12/26/18 00:35 12/26/18 06:07 Glucose (Fingerstick) 231 mg/dL (70-99) 231 mg/dL (70-99) 175 mg/dL (70-99) 165 mg/dL (70-99) Test 12/26/18 06:10 12/26/18 09:00 White Blood Count 3.4 x10^3/uL (4.0-11.0) Red Blood Count 2.84 x10^6/uL (4.30-5.70) Hemoglobin 7.5 g/dL (13.0-17.5) Hematocrit 23.6 % (39.0-53.0) Mean Corpuscular Volume 83 fL (79-100) Mean Corpuscular Hemoglobin 27 pg (25-35) Mean Corpuscular Hemoglobin Concent 32 g/dL (31-37) Red Cell Distribution Width 18.8 % (11.5-14.5) Platelet Count 151 x10^3/uL (140-400) Neutrophils (%) (Auto) 65 % (31-73) Lymphocytes (%) (Auto) 16 % (24-48) Monocytes (%) (Auto) 14 % (0-9) Eosinophils (%) (Auto) 5 % (0-3) Basophils (%) (Auto) 1 % (0-3) Neutrophils # (Auto) 2.2 x10^3uL (1.8-7.7) Lymphocytes # (Auto) 0.5 x10^3/uL (1.0-4.8) Monocytes # (Auto) 0.5 x10^3/uL (0.0-1.1) Eosinophils # (Auto) 0.2 x10^3/uL (0.0-0.7) Basophils # (Auto) 0.0 x10^3/uL (0.0-0.2) Sodium Level 139 mmol/L (136-145) Potassium Level 3.6 mmol/L (3.5-5.1) Chloride Level 103 mmol/L (98-107) Carbon Dioxide Level 31 mmol/L (21-32) Anion Gap 5 (6-14) Blood Urea Nitrogen 11 mg/dL (8-26) Creatinine 0.5 mg/dL (0.7-1.3) Estimated GFR (Cockcroft-Gault) 170.8 BUN/Creatinine Ratio 22 (6-20) Glucose Level 188 mg/dL (70-99) Calcium Level 7.4 mg/dL (8.5-10.1) Phosphorus Level 3.8 mg/dL (2.6-4.7) Magnesium Level 1.5 mg/dL (1.8-2.4) Total Bilirubin 0.6 mg/dL (0.2-1.0) Aspartate Amino Transf (AST/SGOT) 9 U/L (15-37) Alanine Aminotransferase (ALT/SGPT) 12 U/L (16-63) Alkaline Phosphatase 123 U/L (46-116) Total Protein 4.1 g/dL (6.4-8.2) Albumin 1.5 g/dL (3.4-5.0) Albumin/Globulin Ratio 0.6 (1.0-1.7) O2 Saturation 93 % (92-99) Arterial Blood pH 7.41 (7.35-7.45) Arterial Blood pCO2 at Patient Temp 50 mmHg (35-46) Arterial Blood pO2 at Patient Temp 70 mmHg (75-108) Arterial Blood HCO3 31 mmol/L (21-28) Arterial Blood Base Excess 5 mmol/L (-3-3) FiO2 40% Microbiology 12/22/18 Anaerobic/Aerobic Culture - Preliminary, Resulted 12/22/18 Anaerobic Culture Result 1 (MELONY) - Preliminary, Resulted 12/22/18 Aerobic Culture - Final, Resulted 12/22/18 Aerobic Culture Result 1 (MELONY) - Final, Resulted 12/22/18 Gram Stain - Final, Resulted 12/22/18 Gram Stain Result 1 (MELONY) - Final, Resulted 12/22/18 Gram Stain Result 2 (MELONY) - Final, Resulted Normal LFT's. Hemoglobin 7.5 after transfusion. Vitals/I & O Vital Sign - Last 24 Hours 12/25/18 12/25/18 12/25/18 12/25/18 11:00 11:41 12:00 12:00 Temp 97.6 97.6 Pulse 72 68 Resp 14 20 B/P (MAP) 129/50 (76) 132/51 (78) Pulse Ox 98 98 98 O2 Delivery Ventilator Ventilator Mechanical Ventilator Ventilator 12/25/18 12/25/18 12/25/18 12/25/18 12:00 12:21 12:35 13:00 Temp 97.6 97.7 97.6 97.7 Pulse 68 68 68 66 Resp 16 26 16 B/P (MAP) 132/51 (78) 124/49 135/52 134/50 (78) Pulse Ox 98 O2 Delivery Ventilator 12/25/18 12/25/18 12/25/18 12/25/18 13:45 14:00 14:00 15:00 Temp 98.2 98.2 Pulse 68 68 68 Resp 15 15 16 B/P (MAP) 130/50 (76) 130/50 130/50 Pulse Ox 98 98 O2 Delivery Ventilator Ventilator 12/25/18 12/25/18 12/25/18 12/25/18 15:00 15:59 16:00 16:00 Temp 98.2 98.2 Pulse 68 68 Resp 15 16 B/P (MAP) 130/50 (76) 130/50 (76) Pulse Ox 98 97 98 O2 Delivery Ventilator Ventilator Mechanical Ventilator Ventilator 12/25/18 12/25/18 12/25/18 12/25/18 16:00 17:00 18:00 18:22 Pulse 68 70 71 Resp 17 17 B/P (MAP) 130/50 (76) 152/64 (93) 136/57 (83) Pulse Ox 97 98 97 O2 Delivery Ventilator Ventilator Ventilator 12/25/18 12/25/18 12/25/18 12/25/18 18:47 19:00 19:19 20:00 Pulse 71 Resp 16 17 16 B/P (MAP) 130/51 (77) Pulse Ox 97 97 97 O2 Delivery Ventilator Ventilator Ventilator 12/25/18 12/25/18 12/25/18 12/25/18 20:00 20:00 20:09 21:00 Temp 97.6 97.6 Pulse 71 68 Resp 17 27 B/P (MAP) 130/51 (77) 117/45 (69) Pulse Ox 97 97 95 O2 Delivery Ventilator Mechanical Ventilator Ventilator Ventilator 12/25/18 12/25/18 12/25/18 12/25/18 21:52 22:00 23:00 23:04 Pulse 72 72 Resp 19 18 B/P (MAP) 130/51 (77) 127/50 (75) Pulse Ox 97 96 96 97 O2 Delivery Ventilator Ventilator Ventilator Ventilator 12/26/18 12/26/18 12/26/18 12/26/18 00:00 00:00 00:00 01:00 Temp 97.4 97.4 Pulse 74 73 Resp 17 16 B/P (MAP) 126/50 (75) 130/50 (76) Pulse Ox 97 97 O2 Delivery Mechanical Ventilator Ventilator Ventilator 12/26/18 12/26/18 12/26/18 12/26/18 01:29 02:00 03:00 03:20 Pulse 73 75 Resp 17 17 B/P (MAP) 126/49 (74) 128/79 (95) Pulse Ox 96 97 98 96 O2 Delivery Ventilator Ventilator Ventilator Ventilator 12/26/18 12/26/18 12/26/18 12/26/18 04:00 04:00 04:00 05:00 Temp 97.9 97.9 Pulse 75 74 Resp 16 16 B/P (MAP) 115/64 (81) 121/70 (87) Pulse Ox 96 97 O2 Delivery Ventilator Mechanical Ventilator Ventilator 12/26/18 12/26/18 12/26/18 12/26/18 05:41 06:00 07:00 08:00 Temp 98.5 98.5 Pulse 75 74 77 Resp 16 16 16 B/P (MAP) 119/68 (85) 124/49 (74) 118/49 (72) Pulse Ox 96 97 96 93 O2 Delivery Ventilator Ventilator Ventilator Ventilator 12/26/18 12/26/18 12/26/18 12/26/18 08:00 08:00 09:00 09:03 Pulse 77 76 Resp 16 B/P (MAP) 118/49 (72) 114/50 (71) Pulse Ox 94 93 O2 Delivery Mechanical Ventilator Ventilator Ventilator 12/26/18 10:00 Pulse 79 Resp 16 B/P (MAP) 117/52 (73) Pulse Ox 93 O2 Delivery Ventilator Intake and Output 12/25/18 12/25/18 12/26/18 14:59 22:59 06:59 Intake Total 610 ml 2808 ml 2072.2 ml Output Total 890 ml 3525 ml 1105 ml Balance -280 ml -717 ml 967.2 ml Assessment Necrotizing pancreatitis (gliptin?)-->pancreatic pseudocyst(s)-->s/p cystogastrostomy, g-tube, cholecystectomy. Stable, but still critical. Plan of Care Note Continue support. JUSTIN RIVERA MD Dec 26, 2018 10:34
--- NOTE | 2018-12-26 10:43 | PDOC ---
PULMONARY PROGRESS NOTES Subjective PT SEDATED ON PRESSORS AC MODE Vitals Vital Signs Date Time Temp Pulse Resp B/P (MAP) Pulse Ox O2 Delivery O2 Flow Rate FiO2 12/26/18 10:00 79 16 117/52 (73) 93 Ventilator 12/26/18 08:00 98.5 98.5 ROS: No Nausea Lungs: Crackles Cardiovascular: S1, S2 Abdomen: Soft, Other (G TUBE) Extremities: Other (EDEMA) Skin: Warm Labs Laboratory Tests Test 12/24/18 12:01 12/24/18 17:34 12/25/18 01:01 12/25/18 06:00 Glucose (Fingerstick) 296 mg/dL (70-99) 245 mg/dL (70-99) 260 mg/dL (70-99) White Blood Count 2.9 x10^3/uL (4.0-11.0) Red Blood Count 2.60 x10^6/uL (4.30-5.70) Hemoglobin 6.9 g/dL (13.0-17.5) Hematocrit 21.2 % (39.0-53.0) Mean Corpuscular Volume 81 fL (79-100) Mean Corpuscular Hemoglobin 27 pg (25-35) Mean Corpuscular Hemoglobin Concent 33 g/dL (31-37) Red Cell Distribution Width 18.8 % (11.5-14.5) Platelet Count 135 x10^3/uL (140-400) Neutrophils (%) (Auto) 66 % (31-73) Lymphocytes (%) (Auto) 15 % (24-48) Monocytes (%) (Auto) 15 % (0-9) Eosinophils (%) (Auto) 4 % (0-3) Basophils (%) (Auto) 0 % (0-3) Neutrophils # (Auto) 1.9 x10^3uL (1.8-7.7) Lymphocytes # (Auto) 0.4 x10^3/uL (1.0-4.8) Monocytes # (Auto) 0.4 x10^3/uL (0.0-1.1) Eosinophils # (Auto) 0.1 x10^3/uL (0.0-0.7) Basophils # (Auto) 0.0 x10^3/uL (0.0-0.2) Sodium Level 138 mmol/L (136-145) Potassium Level 3.4 mmol/L (3.5-5.1) Chloride Level 105 mmol/L (98-107) Carbon Dioxide Level 29 mmol/L (21-32) Anion Gap 4 (6-14) Blood Urea Nitrogen 13 mg/dL (8-26) Creatinine 0.4 mg/dL (0.7-1.3) Estimated GFR (Cockcroft-Gault) 220.9 BUN/Creatinine Ratio 33 (6-20) Glucose Level 249 mg/dL (70-99) Calcium Level 7.2 mg/dL (8.5-10.1) Phosphorus Level 3.1 mg/dL (2.6-4.7) Magnesium Level 1.7 mg/dL (1.8-2.4) Total Bilirubin 0.7 mg/dL (0.2-1.0) Aspartate Amino Transf (AST/SGOT) 11 U/L (15-37) Alanine Aminotransferase (ALT/SGPT) 16 U/L (16-63) Alkaline Phosphatase 130 U/L (46-116) Total Protein 3.8 g/dL (6.4-8.2) Albumin 1.3 g/dL (3.4-5.0) Albumin/Globulin Ratio 0.5 (1.0-1.7) Test 12/25/18 06:10 12/25/18 08:00 12/25/18 13:18 12/25/18 17:43 Glucose (Fingerstick) 221 mg/dL (70-99) 231 mg/dL (70-99) 231 mg/dL (70-99) O2 Saturation 95 % (92-99) Arterial Blood pH 7.42 (7.35-7.45) Arterial Blood pCO2 at Patient Temp 42 mmHg (35-46) Arterial Blood pO2 at Patient Temp 85 mmHg (75-108) Arterial Blood HCO3 27 mmol/L (21-28) Arterial Blood Base Excess 2 mmol/L (-3-3) FiO2 40 Test 12/26/18 00:35 12/26/18 06:07 12/26/18 06:10 12/26/18 09:00 Glucose (Fingerstick) 175 mg/dL (70-99) 165 mg/dL (70-99) White Blood Count 3.4 x10^3/uL (4.0-11.0) Red Blood Count 2.84 x10^6/uL (4.30-5.70) Hemoglobin 7.5 g/dL (13.0-17.5) Hematocrit 23.6 % (39.0-53.0) Mean Corpuscular Volume 83 fL (79-100) Mean Corpuscular Hemoglobin 27 pg (25-35) Mean Corpuscular Hemoglobin Concent 32 g/dL (31-37) Red Cell Distribution Width 18.8 % (11.5-14.5) Platelet Count 151 x10^3/uL (140-400) Neutrophils (%) (Auto) 65 % (31-73) Lymphocytes (%) (Auto) 16 % (24-48) Monocytes (%) (Auto) 14 % (0-9) Eosinophils (%) (Auto) 5 % (0-3) Basophils (%) (Auto) 1 % (0-3) Neutrophils # (Auto) 2.2 x10^3uL (1.8-7.7) Lymphocytes # (Auto) 0.5 x10^3/uL (1.0-4.8) Monocytes # (Auto) 0.5 x10^3/uL (0.0-1.1) Eosinophils # (Auto) 0.2 x10^3/uL (0.0-0.7) Basophils # (Auto) 0.0 x10^3/uL (0.0-0.2) Sodium Level 139 mmol/L (136-145) Potassium Level 3.6 mmol/L (3.5-5.1) Chloride Level 103 mmol/L (98-107) Carbon Dioxide Level 31 mmol/L (21-32) Anion Gap 5 (6-14) Blood Urea Nitrogen 11 mg/dL (8-26) Creatinine 0.5 mg/dL (0.7-1.3) Estimated GFR (Cockcroft-Gault) 170.8 BUN/Creatinine Ratio 22 (6-20) Glucose Level 188 mg/dL (70-99) Calcium Level 7.4 mg/dL (8.5-10.1) Phosphorus Level 3.8 mg/dL (2.6-4.7) Magnesium Level 1.5 mg/dL (1.8-2.4) Total Bilirubin 0.6 mg/dL (0.2-1.0) Aspartate Amino Transf (AST/SGOT) 9 U/L (15-37) Alanine Aminotransferase (ALT/SGPT) 12 U/L (16-63) Alkaline Phosphatase 123 U/L (46-116) Total Protein 4.1 g/dL (6.4-8.2) Albumin 1.5 g/dL (3.4-5.0) Albumin/Globulin Ratio 0.6 (1.0-1.7) O2 Saturation 93 % (92-99) Arterial Blood pH 7.41 (7.35-7.45) Arterial Blood pCO2 at Patient Temp 50 mmHg (35-46) Arterial Blood pO2 at Patient Temp 70 mmHg (75-108) Arterial Blood HCO3 31 mmol/L (21-28) Arterial Blood Base Excess 5 mmol/L (-3-3) FiO2 40% Laboratory Tests Test 12/25/18 13:18 12/25/18 17:43 12/26/18 00:35 12/26/18 06:07 Glucose (Fingerstick) 231 mg/dL (70-99) 231 mg/dL (70-99) 175 mg/dL (70-99) 165 mg/dL (70-99) Test 12/26/18 06:10 12/26/18 09:00 White Blood Count 3.4 x10^3/uL (4.0-11.0) Red Blood Count 2.84 x10^6/uL (4.30-5.70) Hemoglobin 7.5 g/dL (13.0-17.5) Hematocrit 23.6 % (39.0-53.0) Mean Corpuscular Volume 83 fL (79-100) Mean Corpuscular Hemoglobin 27 pg (25-35) Mean Corpuscular Hemoglobin Concent 32 g/dL (31-37) Red Cell Distribution Width 18.8 % (11.5-14.5) Platelet Count 151 x10^3/uL (140-400) Neutrophils (%) (Auto) 65 % (31-73) Lymphocytes (%) (Auto) 16 % (24-48) Monocytes (%) (Auto) 14 % (0-9) Eosinophils (%) (Auto) 5 % (0-3) Basophils (%) (Auto) 1 % (0-3) Neutrophils # (Auto) 2.2 x10^3uL (1.8-7.7) Lymphocytes # (Auto) 0.5 x10^3/uL (1.0-4.8) Monocytes # (Auto) 0.5 x10^3/uL (0.0-1.1) Eosinophils # (Auto) 0.2 x10^3/uL (0.0-0.7) Basophils # (Auto) 0.0 x10^3/uL (0.0-0.2) Sodium Level 139 mmol/L (136-145) Potassium Level 3.6 mmol/L (3.5-5.1) Chloride Level 103 mmol/L (98-107) Carbon Dioxide Level 31 mmol/L (21-32) Anion Gap 5 (6-14) Blood Urea Nitrogen 11 mg/dL (8-26) Creatinine 0.5 mg/dL (0.7-1.3) Estimated GFR (Cockcroft-Gault) 170.8 BUN/Creatinine Ratio 22 (6-20) Glucose Level 188 mg/dL (70-99) Calcium Level 7.4 mg/dL (8.5-10.1) Phosphorus Level 3.8 mg/dL (2.6-4.7) Magnesium Level 1.5 mg/dL (1.8-2.4) Total Bilirubin 0.6 mg/dL (0.2-1.0) Aspartate Amino Transf (AST/SGOT) 9 U/L (15-37) Alanine Aminotransferase (ALT/SGPT) 12 U/L (16-63) Alkaline Phosphatase 123 U/L (46-116) Total Protein 4.1 g/dL (6.4-8.2) Albumin 1.5 g/dL (3.4-5.0) Albumin/Globulin Ratio 0.6 (1.0-1.7) O2 Saturation 93 % (92-99) Arterial Blood pH 7.41 (7.35-7.45) Arterial Blood pCO2 at Patient Temp 50 mmHg (35-46) Arterial Blood pO2 at Patient Temp 70 mmHg (75-108) Arterial Blood HCO3 31 mmol/L (21-28) Arterial Blood Base Excess 5 mmol/L (-3-3) FiO2 40% Medications Active Scripts Medications Dose Route/Sig Max Daily Dose Days Date Category Trophamine (Amino Acids 10 %) 500 Ml Iv.soln 500 Ml IV DAILY 199912/21/18 Reported Duoneb 0.5-3(2.5) Mg/3 Ml (Albuterol/Ipratropium) 3 Ml Ampul.neb 3 Ml NEB BID 12/21/18 Reported Dulcolax (Bisacodyl) 10 Mg Supp.rect 10 Mg RC PRN DAILY PRN 12/21/18 Reported Duoneb 0.5-3(2.5) Mg/3 Ml (Albuterol/Ipratropium) 3 Ml Ampul.neb 3 Ml NEB PRN Q4HRS PRN 12/21/18 Reported Atorvastatin Calcium 40 Mg Tablet 1 Tab PO QHS 12/21/18 Reported Simethicone 80 Mg Tab.chew 80 Mg PO PRN TID PRN 12/21/18 Reported Humalog (Insulin Lispro) 100 Unit/1 Ml Vial 0 SQ Q6HRS 12/21/18 Reported Ondansetron Hcl 4 Mg/2 Ml Vial (Ondansetron Hcl/Pf) 4 Mg/2 Ml Vial 4 Mg IJ PRN Q6HRS PRN 12/21/18 Reported Actos (Pioglitazone Hcl) 15 Mg Tablet 1 Tab PO DAILY 12/21/18 Reported Tylenol Extra Strength (Acetaminophen) 500 Mg Tablet 1,000 Mg PO PRN Q6HRS PRN 12/21/18 Reported Senokot-S Tablet (Sennosides/Docusate Sodium) 1 Each Tablet 1 Tab PO BID 12/21/18 Reported Vitamin D3 (Cholecalciferol (Vitamin D3)) 1,000 Unit Tablet 1 Tab PO DAILY 12/21/18 Reported Carvedilol (Carvedilol) 12.5 Mg Tablet 12.5 Mg PO BIDWMEALS 12/21/18 Reported Impression . IMPRESSION: 1. Expected hypoxemic respiratory failure, status post open pancreatic pseudocyst gastrostomy, open cholecystectomy, G-tube placement. 2. History of necrotizing pancreatitis. 3. Abnormal x-ray. 4. Possible sepsis. 5. Coronary artery disease, status post coronary artery bypass grafting. 6. History of alcoholism. 7. Protein malnutrition, present upon admission. 8. Acute blood loss anemia, expected. Plan . WILL CONTINUE SUPPORT D/W BROTHER MAKING PROGRESS OFF PRESSORS D/W RN ABG NOTED DECREASE MINUTE VENTILATION LABS AND CXR REVIEWED TPN FOR NUTRITION DVT PROPH FOLLOW CONSULTANTS INPUT NALINI GASCA MD Dec 26, 2018 10:43
[2018-12-26] MEDS ORDERED: FUROSEMIDE 40 MG/4 ML VIAL. IVP ONE (12:00)
[2018-12-26] MEDS: TPN PER PHARMACY MC PRN (12:47)
--- NOTE | 2018-12-26 12:53 | NUR ---
Pharmacy TPN Dosing Note S: JUSTIN OLSEN is a 58 year old M Currently receiving Central Continuous TPN started B:Pertinent PMH: PANCREATITIS; Long Term TPN from [facility] Height: 6 feet, 0 inches Weight: 115.7 kg Current diet: Starting Tube feeds at low rate today 12/25/18 LABS: Sodium: 139 Potassium: 3.6 Chloride: 103 Calcium: 7.4 Corrected Calcium: 9.40 Magnesium: 1.5 CO2: 31 SCr: 0.5 Glucose: 165-231 Albumin: 1.5 AST: 9 ALT: 12 TPN FORMULA: TPN TYPE: Central Continuous AMINO ACIDS: 100 gm DEXTROSE: 375 gm LIPIDS: 30 gm SODIUM CHLORIDE: 110 mEq SODIUM ACETATE: 12 mEq POTASSIUM CHLORIDE: 60 mEq POTASSIUM PHOSPHATE: 20 mmol MAGNESIUM: 25 mEq CALCIUM: 9.3 mEq INSULIN: 85 units MULTIPLE VITAMIN: 10 ml TRACE ELEMENTS: 1 ml TPN PLAN: Went ahead and reduced volume of TPN a little bit today. Magnesium IVPB replacement ordered. R: Continue TPN Will monitor electrolytes, glucose, and tolerance to TPN. Vicky Garces [facility], 12/26/18 [id number]
[2018-12-26] MEDS ORDERED: MAGNESIUM SULFATE 1GM 100 ML IV ONE ×2 (13:00→14:30)
--- NOTE | 2018-12-26 14:59 | PDOC ---
PROGRESS NOTES Subjective Subjective SEEN IN FOLLOW UP OF TPN Objective Objective Vital Signs Date Time Temp Pulse Resp B/P (MAP) Pulse Ox O2 Delivery O2 Flow Rate FiO2 12/26/18 14:00 76 16 135/58 (83) 94 Ventilator 12/26/18 12:00 98.6 98.6 12/22/18 10:52 3 Intake and Output 12/26/18 06:59 Intake Total 5490.2 ml Output Total 5520 ml Balance -29.8 ml Intake Oral 0 ml IV Total 5351.2 ml Tube Feeding 139 ml Output Urine Total 3480 ml Gastric Drainage Total 250 ml Drainage Total 1790 ml Physical Exam Abdomen: Normal bowel sounds, Soft, No tenderness, No hepatosplenomegaly, No masses Heart: Regular rate, Normal S1, Normal S2, No murmurs, Gallops Extremities: Other (DIFFUSE EDEMA) General: Other (SEDATED) Lungs: Clear to auscultation, Other (ON VENT) Neuro: Other (SEDATED) Assessment Assessment TPN MANAGEMENT Plan Plan of Care CONT TPN PER LAB. SUPP MG++ Comment Review of Relevant I have reviewed the following items johanny (where applicable) has been applied. Labs Laboratory Tests Test 12/24/18 17:34 12/25/18 01:01 12/25/18 06:00 12/25/18 06:10 Glucose (Fingerstick) 245 mg/dL (70-99) 260 mg/dL (70-99) 221 mg/dL (70-99) White Blood Count 2.9 x10^3/uL (4.0-11.0) Red Blood Count 2.60 x10^6/uL (4.30-5.70) Hemoglobin 6.9 g/dL (13.0-17.5) Hematocrit 21.2 % (39.0-53.0) Mean Corpuscular Volume 81 fL (79-100) Mean Corpuscular Hemoglobin 27 pg (25-35) Mean Corpuscular Hemoglobin Concent 33 g/dL (31-37) Red Cell Distribution Width 18.8 % (11.5-14.5) Platelet Count 135 x10^3/uL (140-400) Neutrophils (%) (Auto) 66 % (31-73) Lymphocytes (%) (Auto) 15 % (24-48) Monocytes (%) (Auto) 15 % (0-9) Eosinophils (%) (Auto) 4 % (0-3) Basophils (%) (Auto) 0 % (0-3) Neutrophils # (Auto) 1.9 x10^3uL (1.8-7.7) Lymphocytes # (Auto) 0.4 x10^3/uL (1.0-4.8) Monocytes # (Auto) 0.4 x10^3/uL (0.0-1.1) Eosinophils # (Auto) 0.1 x10^3/uL (0.0-0.7) Basophils # (Auto) 0.0 x10^3/uL (0.0-0.2) Sodium Level 138 mmol/L (136-145) Potassium Level 3.4 mmol/L (3.5-5.1) Chloride Level 105 mmol/L (98-107) Carbon Dioxide Level 29 mmol/L (21-32) Anion Gap 4 (6-14) Blood Urea Nitrogen 13 mg/dL (8-26) Creatinine 0.4 mg/dL (0.7-1.3) Estimated GFR (Cockcroft-Gault) 220.9 BUN/Creatinine Ratio 33 (6-20) Glucose Level 249 mg/dL (70-99) Calcium Level 7.2 mg/dL (8.5-10.1) Phosphorus Level 3.1 mg/dL (2.6-4.7) Magnesium Level 1.7 mg/dL (1.8-2.4) Total Bilirubin 0.7 mg/dL (0.2-1.0) Aspartate Amino Transf (AST/SGOT) 11 U/L (15-37) Alanine Aminotransferase (ALT/SGPT) 16 U/L (16-63) Alkaline Phosphatase 130 U/L (46-116) Total Protein 3.8 g/dL (6.4-8.2) Albumin 1.3 g/dL (3.4-5.0) Albumin/Globulin Ratio 0.5 (1.0-1.7) Test 12/25/18 08:00 12/25/18 13:18 12/25/18 17:43 12/26/18 00:35 O2 Saturation 95 % (92-99) Arterial Blood pH 7.42 (7.35-7.45) Arterial Blood pCO2 at Patient Temp 42 mmHg (35-46) Arterial Blood pO2 at Patient Temp 85 mmHg (75-108) Arterial Blood HCO3 27 mmol/L (21-28) Arterial Blood Base Excess 2 mmol/L (-3-3) FiO2 40 Glucose (Fingerstick) 231 mg/dL (70-99) 231 mg/dL (70-99) 175 mg/dL (70-99) Test 12/26/18 06:07 12/26/18 06:10 12/26/18 09:00 12/26/18 12:27 Glucose (Fingerstick) 165 mg/dL (70-99) 187 mg/dL (70-99) White Blood Count 3.4 x10^3/uL (4.0-11.0) Red Blood Count 2.84 x10^6/uL (4.30-5.70) Hemoglobin 7.5 g/dL (13.0-17.5) Hematocrit 23.6 % (39.0-53.0) Mean Corpuscular Volume 83 fL (79-100) Mean Corpuscular Hemoglobin 27 pg (25-35) Mean Corpuscular Hemoglobin Concent 32 g/dL (31-37) Red Cell Distribution Width 18.8 % (11.5-14.5) Platelet Count 151 x10^3/uL (140-400) Neutrophils (%) (Auto) 65 % (31-73) Lymphocytes (%) (Auto) 16 % (24-48) Monocytes (%) (Auto) 14 % (0-9) Eosinophils (%) (Auto) 5 % (0-3) Basophils (%) (Auto) 1 % (0-3) Neutrophils # (Auto) 2.2 x10^3uL (1.8-7.7) Lymphocytes # (Auto) 0.5 x10^3/uL (1.0-4.8) Monocytes # (Auto) 0.5 x10^3/uL (0.0-1.1) Eosinophils # (Auto) 0.2 x10^3/uL (0.0-0.7) Basophils # (Auto) 0.0 x10^3/uL (0.0-0.2) Sodium Level 139 mmol/L (136-145) Potassium Level 3.6 mmol/L (3.5-5.1) Chloride Level 103 mmol/L (98-107) Carbon Dioxide Level 31 mmol/L (21-32) Anion Gap 5 (6-14) Blood Urea Nitrogen 11 mg/dL (8-26) Creatinine 0.5 mg/dL (0.7-1.3) Estimated GFR (Cockcroft-Gault) 170.8 BUN/Creatinine Ratio 22 (6-20) Glucose Level 188 mg/dL (70-99) Calcium Level 7.4 mg/dL (8.5-10.1) Phosphorus Level 3.8 mg/dL (2.6-4.7) Magnesium Level 1.5 mg/dL (1.8-2.4) Total Bilirubin 0.6 mg/dL (0.2-1.0) Aspartate Amino Transf (AST/SGOT) 9 U/L (15-37) Alanine Aminotransferase (ALT/SGPT) 12 U/L (16-63) Alkaline Phosphatase 123 U/L (46-116) Total Protein 4.1 g/dL (6.4-8.2) Albumin 1.5 g/dL (3.4-5.0) Albumin/Globulin Ratio 0.6 (1.0-1.7) O2 Saturation 93 % (92-99) Arterial Blood pH 7.41 (7.35-7.45) Arterial Blood pCO2 at Patient Temp 50 mmHg (35-46) Arterial Blood pO2 at Patient Temp 70 mmHg (75-108) Arterial Blood HCO3 31 mmol/L (21-28) Arterial Blood Base Excess 5 mmol/L (-3-3) FiO2 40% Laboratory Tests Test 12/25/18 17:43 12/26/18 00:35 12/26/18 06:07 12/26/18 06:10 Glucose (Fingerstick) 231 mg/dL (70-99) 175 mg/dL (70-99) 165 mg/dL (70-99) White Blood Count 3.4 x10^3/uL (4.0-11.0) Red Blood Count 2.84 x10^6/uL (4.30-5.70) Hemoglobin 7.5 g/dL (13.0-17.5) Hematocrit 23.6 % (39.0-53.0) Mean Corpuscular Volume 83 fL (79-100) Mean Corpuscular Hemoglobin 27 pg (25-35) Mean Corpuscular Hemoglobin Concent 32 g/dL (31-37) Red Cell Distribution Width 18.8 % (11.5-14.5) Platelet Count 151 x10^3/uL (140-400) Neutrophils (%) (Auto) 65 % (31-73) Lymphocytes (%) (Auto) 16 % (24-48) Monocytes (%) (Auto) 14 % (0-9) Eosinophils (%) (Auto) 5 % (0-3) Basophils (%) (Auto) 1 % (0-3) Neutrophils # (Auto) 2.2 x10^3uL (1.8-7.7) Lymphocytes # (Auto) 0.5 x10^3/uL (1.0-4.8) Monocytes # (Auto) 0.5 x10^3/uL (0.0-1.1) Eosinophils # (Auto) 0.2 x10^3/uL (0.0-0.7) Basophils # (Auto) 0.0 x10^3/uL (0.0-0.2) Sodium Level 139 mmol/L (136-145) Potassium Level 3.6 mmol/L (3.5-5.1) Chloride Level 103 mmol/L (98-107) Carbon Dioxide Level 31 mmol/L (21-32) Anion Gap 5 (6-14) Blood Urea Nitrogen 11 mg/dL (8-26) Creatinine 0.5 mg/dL (0.7-1.3) Estimated GFR (Cockcroft-Gault) 170.8 BUN/Creatinine Ratio 22 (6-20) Glucose Level 188 mg/dL (70-99) Calcium Level 7.4 mg/dL (8.5-10.1) Phosphorus Level 3.8 mg/dL (2.6-4.7) Magnesium Level 1.5 mg/dL (1.8-2.4) Total Bilirubin 0.6 mg/dL (0.2-1.0) Aspartate Amino Transf (AST/SGOT) 9 U/L (15-37) Alanine Aminotransferase (ALT/SGPT) 12 U/L (16-63) Alkaline Phosphatase 123 U/L (46-116) Total Protein 4.1 g/dL (6.4-8.2) Albumin 1.5 g/dL (3.4-5.0) Albumin/Globulin Ratio 0.6 (1.0-1.7) Test 12/26/18 09:00 12/26/18 12:27 O2 Saturation 93 % (92-99) Arterial Blood pH 7.41 (7.35-7.45) Arterial Blood pCO2 at Patient Temp 50 mmHg (35-46) Arterial Blood pO2 at Patient Temp 70 mmHg (75-108) Arterial Blood HCO3 31 mmol/L (21-28) Arterial Blood Base Excess 5 mmol/L (-3-3) FiO2 40% Glucose (Fingerstick) 187 mg/dL (70-99) Microbiology 12/22/18 Anaerobic/Aerobic Culture - Preliminary, Resulted 12/22/18 Anaerobic Culture Result 1 (MELONY) - Preliminary, Resulted 12/22/18 Aerobic Culture - Final, Resulted 12/22/18 Aerobic Culture Result 1 (MELONY) - Final, Resulted 12/22/18 Gram Stain - Final, Resulted 12/22/18 Gram Stain Result 1 (MELONY) - Final, Resulted 12/22/18 Gram Stain Result 2 (MELONY) - Final, Resulted Medications Current Medications Heparin Sodium (Porcine) 1000 unit/Sodium Chloride 1,001 ml @ 1,001 mls/hr 1X ONCE IRR Last administered on 12/22/18at 12:56; Start 12/22/18 at 06:00; Stop at 06:59; Status DC Ondansetron HCl (Zofran) 4 mg PRN Q6HRS PRN IV NAUSEA/VOMITING; Start 12/22/18 at 07:00; Stop 12/22/18 at 19:00; Status DC Fentanyl Citrate (Fentanyl 2ml Vial) 25 mcg PRN Q5MIN PRN IV MILD PAIN; Start 12/22/18 at 07:00; Stop 12/22/18 at 19:00; Status DC Fentanyl Citrate (Fentanyl 2ml Vial) 50 mcg PRN Q5MIN PRN IV MODERATE TO SEVERE PAIN; Start 12/22/18 at 07:00; Stop 12/22/18 at 19:00; Status DC Morphine Sulfate (Morphine Sulfate) 1 mg PRN Q10MIN PRN IV SEVERE PAIN; Start 12/22/18 at 07:00; Stop 12/22/18 at 19:00; Status DC Ringer's Solution 1,000 ml @ 30 mls/hr Q24H IV Last administered on 12/22/18at 10:55; Start 12/22/18 at 07:00; Stop 12/22/18 at 18:59; Status DC Hydromorphone HCl (Dilaudid) 0.5 mg PRN Q10MIN PRN IV SEV PAIN, Second choice; Start 12/22/18 at 07:00; Stop 12/22/18 at 19:00; Status DC Prochlorperazine Edisylate (Compazine) 5 mg PACU PRN PRN IV NAUSEA, MRX1; Start 12/22/18 at 07:00; Stop 12/22/18 at 19:00; Status DC Ibuprofen (Motrin) 200 mg 1X PREOP PO ; Start 12/22/18 at 08:00; Stop 12/23/18 at 12:33; Status DC Cefazolin Sodium/ Dextrose 50 ml @ 100 mls/hr 1X PREOP PRN IV PRIOR TO PROCEDURE Last administered on 12/22/18 11:28; Start 12/22/18 at 06:00; Stop at 18:00; Status DC Bisacodyl (Dulcolax Supp) 10 mg 1X PRN PRN NE CONSTIPATION; Start 12/22/18 at 08:00; Stop 12/22/18 at 18:00; Status DC Bupivacaine HCl/ Epinephrine Bitart (Sensorcain-Mpf Epi 0.5%-[id number]) 30 ml STK -MED ONCE .ROUTE Last administered on 12/22/18 12:23; Start 12/22/18 at 07:03 ; Stop 12/22/18 at 08:05; Status DC Iohexol (Omnipaque 300 Mg/ml) 100 ml STK-MED ONCE .ROUTE Last administered on at 12:24; Start 12/22/18 at 07:03; Stop 12/22/18 at 08:05; Status DC Cellulose (Surgicel Hemostat 4x8) 1 each STK-MED ONCE .ROUTE Last administered on 12/22/18at 13:58; Start 12/22/18 at 07:03; Stop 12/22/18 at 08:05; Status DC Bisacodyl (Dulcolax Supp) 10 mg STK-MED ONCE .ROUTE ; Start 12/22/18 at 07:03; Stop 12/22/18 at 08:05; Status DC Propofol 20 ml @ As Directed STK-MED ONCE IV ; Start 12/22/18 at 09:59; Stop at 10:00; Status DC Lidocaine HCl (Lidocaine Pf 2% Vial) 5 ml STK-MED ONCE .ROUTE ; Start 12/22/18 at 09:59; Stop 12/22/18 at 10:00; Status DC Dexamethasone Sodium Phosphate (Decadron) 20 mg STK-MED ONCE .ROUTE ; Start at 09:59; Stop 12/22/18 at 10:00; Status DC Ondansetron HCl (Zofran) 4 mg STK-MED ONCE .ROUTE ; Start 12/22/18 at 09:59; Stop 12/22/18 at 10:00; Status DC Famotidine (Pepcid Vial) 20 mg STK-MED ONCE .ROUTE ; Start 12/22/18 at 09:59; Stop 12/22/18 at 10:00; Status DC Rocuronium [place] (Zemuron) 50 mg STK-MED ONCE .ROUTE ; Start 12/22/18 at 10:00 ; Stop 12/22/18 at 10:01; Status DC Midazolam HCl (Versed) 2 mg STK-MED ONCE .ROUTE ; Start 12/22/18 at 10:00; Stop 12/22/18 at 10:01; Status DC Fentanyl Citrate (Fentanyl 2ml Vial) 100 mcg STK-MED ONCE .ROUTE ; Start at 10:01; Stop 12/22/18 at 10:02; Status DC Ephedrine Sulfate (ePHEDrine PF IN SALINE SYRINGE) 50 mg STK-MED ONCE IV ; Start 12/22/18 at 11:42; Stop 12/22/18 at 11:43; Status DC Glycopyrrolate (Robinul) 1 mg STK-MED ONCE .ROUTE ; Start 12/22/18 at 12:28; Stop 12/22/18 at 12:29; Status DC Neostigmine Methylsulfate (Neostigmine Methylsulfate) 5 mg STK-MED ONCE .ROUTE ; Start 12/22/18 at 12:29; Stop 12/22/18 at 12:30; Status DC Sevoflurane (Ultane) 90 ml STK-MED ONCE IH ; Start 12/22/18 at 12:35; Stop 12/22 at 12:36; Status DC Phenylephrine HCl (PHENYLEPHRINE in 0.9% NACL PF) 1 mg STK-MED ONCE IV ; Start 12/22/18 at 12:39; Stop 12/22/18 at 12:40; Status DC Albumin Human 500 ml @ As Directed STK-MED ONCE IV ; Start 12/22/18 at 12:48; Stop 12/22/18 at 12:49; Status DC Phenylephrine HCl (Jeromy-Synephrine Inj) 10 mg STK-MED ONCE .ROUTE ; Start at 12:49; Stop 12/22/18 at 12:50; Status DC Rocuronium [place] (Zemuron) 50 mg STK-MED ONCE .ROUTE ; Start 12/22/18 at 13:04 ; Stop 12/22/18 at 13:05; Status DC Dopamine HCl/ Dextrose 250 ml @ As Directed STK-MED ONCE IV ; Start 12/22/18 at 13:15; Stop 12/22/18 at 13:16; Status DC Ephedrine Sulfate (Akovaz) 50 mg STK-MED ONCE .ROUTE ; Start 12/22/18 at 13:52; Stop 12/22/18 at 13:53; Status DC Rocuronium [place] (Zemuron) 50 mg STK-MED ONCE .ROUTE ; Start 12/22/18 at 13:52 ; Stop 12/22/18 at 13:53; Status DC Albumin Human 500 ml @ As Directed STK-MED ONCE IV ; Start 12/22/18 at 13:57; Stop 12/22/18 at 13:58; Status DC Ephedrine Sulfate (ePHEDrine PF IN SALINE SYRINGE) 50 mg STK-MED ONCE IV ; Start 12/22/18 at 14:29; Stop 12/22/18 at 14:30; Status DC Metronidazole 100 ml @ 100 mls/hr Q12HR IV Last administered on 12/26/18at 08: 34; Start 12/22/18 at 21:00 Cefazolin Sodium/ Dextrose 50 ml @ 100 mls/hr Q8H IV Last administered on 12/23at 12:10; Start 12/22/18 at 20:00; Stop 12/23/18 at 13:48; Status DC Enoxaparin Sodium (Lovenox 40mg Syringe) 40 mg Q24H SQ Last administered on at 08:25; Start 12/23/18 at 09:00; Stop 12/26/18 at 09:48; Status DC Sodium Chloride (Normal Saline Flush) 3 ml QSHIFT PRN IV AFTER MEDS AND BLOOD DRAWS; Start 12/22/18 at 14:45 Ringer's Solution 1,000 ml @ 100 mls/hr Q10H IV Last administered on at 07:08; Start 12/22/18 at 16:00; Stop 12/25/18 at 15:08; Status DC Naloxone HCl (Narcan) 0.4 mg PRN Q2MIN PRN IV SEE INSTRUCTIONS; Start 12/22/18 at 14:45 Sodium Chloride 1,000 ml @ 25 mls/hr Q24H IV Last administered on 12/25/18at 21 :00; Start 12/22/18 at 16:00 Morphine Sulfate 30 ml @ 0 mls/hr CONT PRN PRN IV PER PROTOCOL Last administered on 12/22/18at 17:50; Start 12/22/18 at 14:45; Stop 12/22/18 at 18:22 ; Status DC Ondansetron HCl (Zofran) 4 mg PRN Q6HRS PRN IV NAUESA, 1ST CHOICE; Start at 14:45 Chlorhexidine Gluconate (Peridex) 15 ml BID MM Last administered on 12/25/18at 21:12; Start 12/22/18 at 21:00; Stop 12/26/18 at 07:46; Status DC Midazolam HCl 100 ml @ 0 mls/hr CONT PRN IV SEE PROTOCOL Last administered on at 06:05; Start 12/22/18 at 15:30 Dopamine HCl/ Dextrose 250 ml @ 8.686 mls/ hr CONT PRN IV SEE I/O RECORD Last administered on 12/24/18at 21:56; Start 12/22/18 at 17:45 Morphine Sulfate 30 ml @ 0 mls/hr CONT PRN PRN IV PER PROTOCOL Last administered on 12/25/18at 18:47; Start 12/22/18 at 18:30 Magnesium Sulfate/ Dextrose 100 ml @ 25 mls/hr 1X ONCE IV ; Start 12/23/18 at 09:00; Stop 12/23/18 at 12:59; Status UNV Insulin Human Lispro (HumaLOG) 0-8 UNITS Q6HRS SQ Last administered on at 13:02; Start 12/23/18 at 12:00 Magnesium Sulfate 50 ml @ 25 mls/hr Q2H IV Last administered on 12/23/18at 12:09 ; Start 12/23/18 at 09:15; Stop 12/23/18 at 13:14; Status DC Info (Tpn Per Pharmacy) 1 each PRN DAILY PRN MC SEE COMMENTS Last administered on 12/26/18at 12:47; Start 12/23/18 at 09:15 Furosemide (Lasix) 20 mg 1X ONCE IVP Last administered on 12/23/18at 12:03; Start 12/23/18 at 09:15; Stop 12/23/18 at 09:19; Status DC Albumin Human 100 ml @ 100 mls/hr 1X ONCE IV Last administered on 12/23/18at 09:48; Start 12/23/18 at 09:15; Stop 12/23/18 at 10:14; Status DC Pantoprazole Sodium (PROTONIX VIAL for IV PUSH) 40 mg DAILYAC IVP Last administered on 12/26/18at 08:28; Start 12/23/18 at 10:30 Cefazolin Sodium/ Dextrose (Ancef 2gm Premix) 2 gm STK-MED ONCE IV ; Start 12/22 at 12:00; Stop 12/23/18 at 12:38; Status DC Sodium Chloride 110 meq/Sodium Acetate 12 meq/ Potassium Chloride 36 meq/ Magnesium Sulfate 12 meq/Calcium Gluconate 9.3 meq/ Multivitamins 10 ml/Chromium / Copper/Manganese/ Seleni/Zn 1 ml/ Insulin Human Regular 70 unit/ Total Parenteral Nutrition/Amino Acids/Dextrose/ Fat Emulsion Intravenous 2,400 ml @ 100 mls/hr TPN CONT IV Last administered on 12/23/18at 22:15; Start 12/23/18 at 22:00; Stop 12/24/18 at 21:59; Status DC Piperacillin Sod/ Tazobactam Sod 3.375 gm/Sodium Chloride 50 ml @ 100 mls/hr Q6HRS IV Last administered on 12/25/18at 06:13; Start 12/23/18 at 18:00; Stop at 09:18; Status DC Linezolid/Dextrose 300 ml @ 300 mls/hr Q12HR IV Last administered on at 08:41; Start 12/24/18 at 09:00; Stop 12/25/18 at 09:18; Status DC Magnesium Sulfate 50 ml @ 25 mls/hr 1X ONCE IV Last administered on 12/24/18at 10:34; Start 12/24/18 at 10:30; Stop 12/24/18 at 12:29; Status DC Potassium Phosphate 10 mmol/ Dextrose 103.3333 ml @ 51.667 m... Q2H IV Last administered on 12/24/18at 13:02; Start 12/24/18 at 10:30; Stop 12/24/18 at 14:29 ; Status DC Furosemide (Lasix) 20 mg 1X ONCE IVP Last administered on 12/24/18at 13:03; Start 12/24/18 at 11:15; Stop 12/24/18 at 11:19; Status DC Albumin Human 100 ml @ 100 mls/hr 1X ONCE IV Last administered on 12/24/18at 12:41; Start 12/24/18 at 11:15; Stop 12/24/18 at 12:14; Status DC Potassium Chloride/Water 50 ml @ 50 mls/hr Q1H IV Last administered on at 14:10; Start 12/24/18 at 13:30; Stop 12/24/18 at 15:29; Status DC Sodium Chloride 110 meq/Sodium Acetate 12 meq/ Potassium Chloride 50 meq/ Potassium Phosphate 20 mmol/ Magnesium Sulfate 20 meq/Calcium Gluconate 9.3 meq / Multivitamins 10 ml/Chromium/ Copper/Manganese/ Seleni/Zn 1 ml/ Insulin Human Regular 80 unit/ Total Parenteral Nutrition/Amino Acids/Dextro... 2,400 ml @ 100 mls/hr TPN CONT IV Last administered on 12/24/18at 23:24; Start 12/24/18 at 22:00; Stop 12/25/18 at 21:59; Status DC Meropenem 500 mg/ Sodium Chloride 50 ml @ 100 mls/hr Q6HRS IV Last administered on 12/26/18at 12:57; Start 12/25/18 at 12:00 Potassium Chloride/Water 50 ml @ 50 mls/hr Q1H IV Last administered on at 11:58; Start 12/25/18 at 10:00; Stop 12/25/18 at 11:59; Status DC Magnesium Sulfate 50 ml @ 25 mls/hr 1X ONCE IV Last administered on 12/25/18at 10:06; Start 12/25/18 at 09:30; Stop 12/25/18 at 11:29; Status DC Albumin Human 100 ml @ 100 mls/hr 1X ONCE IV Last administered on 12/25/18at 11:12; Start 12/25/18 at 10:15; Stop 12/25/18 at 11:14; Status DC Furosemide (Lasix) 40 mg 1X ONCE IVP ; Start 12/25/18 at 10:15; Stop 12/25/18 at 10:16; Status Cancel Sodium Chloride 110 meq/Sodium Acetate 12 meq/ Potassium Chloride 60 meq/ Potassium Phosphate 20 mmol/ Magnesium Sulfate 25 meq/Calcium Gluconate 9.3 meq / Multivitamins 10 ml/Chromium/ Copper/Manganese/ Seleni/Zn 1 ml/ Insulin Human Regular 85 unit/ Total Parenteral Nutrition/Amino Acids/Dextro... 2,400 ml @ 100 mls/hr TPN CONT IV Last administered on 12/25/18at 21:16; Start 12/25/18 at 22:00; Stop 12/26/18 at 21:59 Furosemide (Lasix) 40 mg 1X ONCE IVP Last administered on 12/25/18at 16:11; Start 12/25/18 at 16:15; Stop 12/25/18 at 16:16; Status DC Albumin Human 100 ml @ 100 mls/hr 1X ONCE IV Last administered on 12/26/18at 10:43; Start 12/26/18 at 10:30; Stop 12/26/18 at 11:29; Status DC Furosemide (Lasix) 40 mg 1X ONCE IVP Last administered on 12/26/18at 12:55; Start 12/26/18 at 12:00; Stop 12/26/18 at 12:01; Status DC Sodium Chloride 110 meq/Sodium Acetate 12 meq/ Potassium Chloride 60 meq/ Potassium Phosphate 20 mmol/ Magnesium Sulfate 25 meq/Calcium Gluconate 9.3 meq / Multivitamins 10 ml/Chromium/ Copper/Manganese/ Seleni/Zn 1 ml/ Insulin Human Regular 85 unit/ Total Parenteral Nutrition/Amino Acids/Dextro... 1,800 ml @ 75 mls/hr TPN CONT IV ; Start 12/26/18 at 22:00; Stop 12/27/18 at 21:59 Magnesium Sulfate/ Dextrose 100 ml @ 100 mls/hr 1X ONCE IV Last administered on 12/26/18at 13:39; Start 12/26/18 at 13:00; Stop 12/26/18 at 13:59; Status DC Magnesium Sulfate/ Dextrose 100 ml @ 100 mls/hr 1X ONCE IV ; Start 12/26/18 at 14:30; Stop 12/26/18 at 15:29; Status UNV Active Scripts Active Reported Trophamine (Amino Acids 10 %) 500 Ml Iv.soln 500 Ml IV DAILY 2000 Duoneb 0.5-3(2.5) Mg/3 Ml (Albuterol/Ipratropium) 3 Ml Ampul.neb 3 Ml NEB BID Dulcolax (Bisacodyl) 10 Mg Supp.rect 10 Mg RC PRN DAILY PRN Duoneb 0.5-3(2.5) Mg/3 Ml (Albuterol/Ipratropium) 3 Ml Ampul.neb 3 Ml NEB PRN Q4HRS PRN Atorvastatin Calcium 40 Mg Tablet 1 Tab PO QHS Simethicone 80 Mg Tab.chew 80 Mg PO PRN TID PRN Humalog (Insulin Lispro) 100 Unit/1 Ml Vial 0 SQ Q6HRS Ondansetron Hcl 4 Mg/2 Ml Vial (Ondansetron Hcl/Pf) 4 Mg/2 Ml Vial 4 Mg IJ PRN Q6HRS PRN Actos (Pioglitazone Hcl) 15 Mg Tablet 1 Tab PO DAILY Tylenol Extra Strength (Acetaminophen) 500 Mg Tablet 1,000 Mg PO PRN Q6HRS PRN Senokot-S Tablet (Sennosides/Docusate Sodium) 1 Each Tablet 1 Tab PO BID Vitamin D3 (Cholecalciferol (Vitamin D3)) 1,000 Unit Tablet 1 Tab PO DAILY Carvedilol (Carvedilol) 12.5 Mg Tablet 12.5 Mg PO BIDWMEALS Vitals/I & O Vital Sign - Last 24 Hours 12/25/18 12/25/18 12/25/18 12/25/18 15:00 15:00 15:59 16:00 Temp 98.2 98.2 Pulse 68 68 Resp 16 15 B/P (MAP) 130/50 130/50 (76) Pulse Ox 98 97 O2 Delivery Ventilator Ventilator Mechanical Ventilator 12/25/18 12/25/18 12/25/18 12/25/18 16:00 16:00 17:00 18:00 Temp 98.2 98.2 Pulse 68 68 70 71 Resp 16 17 17 B/P (MAP) 130/50 (76) 130/50 (76) 152/64 (93) 136/57 (83) Pulse Ox 98 97 98 O2 Delivery Ventilator Ventilator Ventilator 12/25/18 12/25/18 12/25/18 12/25/18 18:22 18:47 19:00 19:19 Pulse 71 Resp 16 17 16 B/P (MAP) 130/51 (77) Pulse Ox 97 97 97 97 O2 Delivery Ventilator Ventilator Ventilator Ventilator 12/25/18 12/25/18 12/25/18 12/25/18 20:00 20:00 20:00 20:09 Temp 97.6 97.6 Pulse 71 Resp 17 B/P (MAP) 130/51 (77) Pulse Ox 97 97 O2 Delivery Ventilator Mechanical Ventilator Ventilator 12/25/18 12/25/18 12/25/18 12/25/18 21:00 21:52 22:00 23:00 Pulse 68 72 72 Resp 27 19 18 B/P (MAP) 117/45 (69) 130/51 (77) 127/50 (75) Pulse Ox 95 97 96 96 O2 Delivery Ventilator Ventilator Ventilator Ventilator 12/25/18 12/26/18 12/26/18 12/26/18 23:04 00:00 00:00 00:00 Temp 97.4 97.4 Pulse 74 Resp 17 B/P (MAP) 126/50 (75) Pulse Ox 97 97 O2 Delivery Ventilator Mechanical Ventilator Ventilator 12/26/18 12/26/18 12/26/18 12/26/18 01:00 01:29 02:00 03:00 Pulse 73 73 75 Resp 16 17 17 B/P (MAP) 130/50 (76) 126/49 (74) 128/79 (95) Pulse Ox 97 96 97 98 O2 Delivery Ventilator Ventilator Ventilator Ventilator 3/30/19 3/30/19 3/30/19 3/30/19 03:20 04:00 04:00 04:00 Temp 97.9 97.9 Pulse 75 Resp 16 B/P (MAP) 115/64 (81) Pulse Ox 96 96 O2 Delivery Ventilator Ventilator Mechanical Ventilator 12/26/18 12/26/18 12/26/18 12/26/18 05:00 05:41 06:00 07:00 Pulse 74 75 74 Resp 16 16 16 B/P (MAP) 121/70 (87) 119/68 (85) 124/49 (74) Pulse Ox 97 96 97 96 O2 Delivery Ventilator Ventilator Ventilator Ventilator 12/26/18 12/26/18 12/26/18 12/26/18 08:00 08:00 08:00 09:00 Temp 98.5 98.5 Pulse 77 77 76 Resp 16 16 B/P (MAP) 118/49 (72) 118/49 (72) 114/50 (71) Pulse Ox 93 94 O2 Delivery Ventilator Mechanical Ventilator Ventilator 12/26/18 12/26/18 12/26/18 12/26/18 09:03 10:00 10:53 11:00 Pulse 79 76 Resp 16 16 B/P (MAP) 117/52 (73) 107/49 (68) Pulse Ox 93 93 94 95 O2 Delivery Ventilator Ventilator Ventilator Ventilator 12/26/18 12/26/18 12/26/18 12/26/18 12:00 12:00 12:00 13:00 Temp 98.6 98.6 Pulse 76 76 74 Resp 16 18 B/P (MAP) 95/66 (76) 95/66 (76) 120/52 (74) Pulse Ox 95 O2 Delivery Ventilator Mechanical Ventilator Ventilator 12/26/18 14:00 Pulse 76 Resp 16 B/P (MAP) 135/58 (83) Pulse Ox 94 O2 Delivery Ventilator Intake and Output 12/25/18 12/25/18 12/26/18 14:59 22:59 06:59 Intake Total 610 ml 2808 ml 2072.2 ml Output Total 890 ml 3525 ml 1105 ml Balance -280 ml -717 ml 967.2 ml JUSTIN LUND MD Dec 26, 2018 14:59
[2018-12-26] MEDS: IV NORMAL SALINE 1000ML BAG 1,000 ML IV SCH (18:10)
[2018-12-26] MEDS ORDERED: [UNRECOGNIZED DRUG - OTHER] IV SCH ×12 (22:00)
[2018-12-26] MEDS ORDERED: TOTAL PARENTERAL NUTRITION IV SCH ×12 (22:00)
[2018-12-26] MEDS ORDERED: DEXTROSE 70% IV SCH ×12 (22:00)
[2018-12-26] MEDS ORDERED: AMINO ACID IV SCH ×12 (22:00)
[2018-12-26] MEDS: MORPHINE SULFATE/PF 30 ML IV PRN (23:49)
[2018-12-27] VITALS (24 sets, daily range): BP systolic 108–143; BP diastolic 42–68
[2018-12-27] MEDS: MIDAZOLAM 100mg/100ml NS BAG 100 ML IV PRN (04:56)
[2018-12-27] MEDS: MEROPENEM 500 MG in IV NORMAL SALINE 50ML 50 ML IV SCH ×3 (05:51→17:39)
[2018-12-27] MEDS: INSULIN LISPRO 300 UNITS/3 ML INSULN.PEN. SQ SCH ×3 (05:52→17:41)
[2018-12-27 06:47] LABS: ALBUMIN 1.5 g/dL (3.4-5.0); ALBUMIN/GLOBULIN RATIO 0.6 (1.0-1.7); CALCIUM 7.4 mg/dL (8.5-10.1); CREATININE 0.4 mg/dL (0.7-1.3); GFR 220.9; MAGNESIUM 1.7 mg/dL (1.8-2.4); POTASSIUM 3.8 mmol/L (3.5-5.1); TOTAL BILIRUBIN 0.5 mg/dL (0.2-1.0); TOTAL PROTEIN 4.2 g/dL (6.4-8.2)
[2018-12-27 06:53] LABS: BASO % 1 % (0-3); EOS # 0.1 x10^3/uL (0.0-0.7); EOS % 3 % (0-3); HEMATOCRIT 24.8 % (39.0-53.0); LYMPH # 0.5 x10^3/uL (1.0-4.8); LYMPH % 16 % (24-48); MEAN CORPUSCULAR HEMOGLOBIN 27 pg (25-35); MEAN CORPUSCULAR HGB CONC 33 g/dL (31-37); MEAN CORPUSCULAR VOLUME 83 fL (79-100); MONO # 0.4 x10^3/uL (0.0-1.1); MONO % 14 % (0-9); NEUT # 2.1 x10^3uL (1.8-7.7); NEUT % 66 % (31-73); PLATELET COUNT 152 x10^3/uL (140-400); RED BLOOD COUNT 2.99 x10^6/uL (4.30-5.70); RED CELL DISTRIBUTION WIDTH 19.6 % (11.5-14.5); WHITE BLOOD COUNT 3.2 x10^3/uL (4.0-11.0)
[2018-12-27] MEDS: PANTOPRAZOLE IV PUSH 40 MG VIAL. IVP SCH (08:28)
[2018-12-27] MEDS ORDERED: ALBUMIN HUMAN 25% 100 ML IV ONE (09:15)
--- NOTE | 2018-12-27 09:17 | PDOC ---
IM PROGRESS NOTES- Subjective Subjective Patient is sedated and unable to do systems review. Objective Vitals Vital Signs Date Time Temp Pulse Resp B/P (MAP) Pulse Ox O2 Delivery O2 Flow Rate FiO2 12/27/18 09:00 75 16 121/49 (73) 93 Ventilator 12/27/18 08:00 98.2 98.2 Input & Output Intake and Output 12/27/18 07:00 Intake Total 3593.69 ml Output Total 6915 ml Balance -3321.31 ml IV Total 3130.69 ml Tube Feeding 463 ml Output Urine Total 4330 ml Gastric Drainage Total 800 ml Drainage Total 1785 ml Physical Exam Physical Exam GENERAL: The patient is sedated on mechanical ventilation. Tracheostomy tube in place, eyes closed. HEENT: Partial exam. No other changes. LUNGS: Decreased breath sounds at bases. CARDIOVASCULAR: S1, S2 regular. ABDOMEN: The patient is status post surgery with dressing in place. Bowel sounds hyperactive. EXTREMITIES: 2-3 + edema. The patient also has anasarca. CENTRAL NERVOUS SYSTEM: Sedated. Labs Laboratory Tests Test 12/25/18 13:18 12/25/18 17:43 12/26/18 00:35 12/26/18 06:07 Glucose (Fingerstick) 231 mg/dL (70-99) 231 mg/dL (70-99) 175 mg/dL (70-99) 165 mg/dL (70-99) Test 12/26/18 06:10 12/26/18 09:00 12/26/18 12:27 12/26/18 18:11 White Blood Count 3.4 x10^3/uL (4.0-11.0) Red Blood Count 2.84 x10^6/uL (4.30-5.70) Hemoglobin 7.5 g/dL (13.0-17.5) Hematocrit 23.6 % (39.0-53.0) Mean Corpuscular Volume 83 fL (79-100) Mean Corpuscular Hemoglobin 27 pg (25-35) Mean Corpuscular Hemoglobin Concent 32 g/dL (31-37) Red Cell Distribution Width 18.8 % (11.5-14.5) Platelet Count 151 x10^3/uL (140-400) Neutrophils (%) (Auto) 65 % (31-73) Lymphocytes (%) (Auto) 16 % (24-48) Monocytes (%) (Auto) 14 % (0-9) Eosinophils (%) (Auto) 5 % (0-3) Basophils (%) (Auto) 1 % (0-3) Neutrophils # (Auto) 2.2 x10^3uL (1.8-7.7) Lymphocytes # (Auto) 0.5 x10^3/uL (1.0-4.8) Monocytes # (Auto) 0.5 x10^3/uL (0.0-1.1) Eosinophils # (Auto) 0.2 x10^3/uL (0.0-0.7) Basophils # (Auto) 0.0 x10^3/uL (0.0-0.2) Sodium Level 139 mmol/L (136-145) Potassium Level 3.6 mmol/L (3.5-5.1) Chloride Level 103 mmol/L (98-107) Carbon Dioxide Level 31 mmol/L (21-32) Anion Gap 5 (6-14) Blood Urea Nitrogen 11 mg/dL (8-26) Creatinine 0.5 mg/dL (0.7-1.3) Estimated GFR (Cockcroft-Gault) 170.8 BUN/Creatinine Ratio 22 (6-20) Glucose Level 188 mg/dL (70-99) Calcium Level 7.4 mg/dL (8.5-10.1) Phosphorus Level 3.8 mg/dL (2.6-4.7) Magnesium Level 1.5 mg/dL (1.8-2.4) Total Bilirubin 0.6 mg/dL (0.2-1.0) Aspartate Amino Transf (AST/SGOT) 9 U/L (15-37) Alanine Aminotransferase (ALT/SGPT) 12 U/L (16-63) Alkaline Phosphatase 123 U/L (46-116) Total Protein 4.1 g/dL (6.4-8.2) Albumin 1.5 g/dL (3.4-5.0) Albumin/Globulin Ratio 0.6 (1.0-1.7) O2 Saturation 93 % (92-99) Arterial Blood pH 7.41 (7.35-7.45) Arterial Blood pCO2 at Patient Temp 50 mmHg (35-46) Arterial Blood pO2 at Patient Temp 70 mmHg (75-108) Arterial Blood HCO3 31 mmol/L (21-28) Arterial Blood Base Excess 5 mmol/L (-3-3) FiO2 40% Glucose (Fingerstick) 187 mg/dL (70-99) 175 mg/dL (70-99) Test 12/26/18 22:04 12/26/18 23:52 12/27/18 05:51 12/27/18 06:05 Potassium Level 3.9 mmol/L (3.5-5.1) 3.8 mmol/L (3.5-5.1) Glucose (Fingerstick) 185 mg/dL (70-99) 187 mg/dL (70-99) White Blood Count 3.2 x10^3/uL (4.0-11.0) Red Blood Count 2.99 x10^6/uL (4.30-5.70) Hemoglobin 8.0 g/dL (13.0-17.5) Hematocrit 24.8 % (39.0-53.0) Mean Corpuscular Volume 83 fL (79-100) Mean Corpuscular Hemoglobin 27 pg (25-35) Mean Corpuscular Hemoglobin Concent 33 g/dL (31-37) Red Cell Distribution Width 19.6 % (11.5-14.5) Platelet Count 152 x10^3/uL (140-400) Neutrophils (%) (Auto) 66 % (31-73) Lymphocytes (%) (Auto) 16 % (24-48) Monocytes (%) (Auto) 14 % (0-9) Eosinophils (%) (Auto) 3 % (0-3) Basophils (%) (Auto) 1 % (0-3) Neutrophils # (Auto) 2.1 x10^3uL (1.8-7.7) Lymphocytes # (Auto) 0.5 x10^3/uL (1.0-4.8) Monocytes # (Auto) 0.4 x10^3/uL (0.0-1.1) Eosinophils # (Auto) 0.1 x10^3/uL (0.0-0.7) Basophils # (Auto) 0.0 x10^3/uL (0.0-0.2) Sodium Level 136 mmol/L (136-145) Chloride Level 102 mmol/L (98-107) Carbon Dioxide Level 33 mmol/L (21-32) Anion Gap 1 (6-14) Blood Urea Nitrogen 13 mg/dL (8-26) Creatinine 0.4 mg/dL (0.7-1.3) Estimated GFR (Cockcroft-Gault) 220.9 BUN/Creatinine Ratio 33 (6-20) Glucose Level 222 mg/dL (70-99) Calcium Level 7.4 mg/dL (8.5-10.1) Magnesium Level 1.7 mg/dL (1.8-2.4) Total Bilirubin 0.5 mg/dL (0.2-1.0) Aspartate Amino Transf (AST/SGOT) 11 U/L (15-37) Alanine Aminotransferase (ALT/SGPT) 8 U/L (16-63) Alkaline Phosphatase 113 U/L (46-116) Total Protein 4.2 g/dL (6.4-8.2) Albumin 1.5 g/dL (3.4-5.0) Albumin/Globulin Ratio 0.6 (1.0-1.7) Laboratory Tests Test 12/26/18 12:27 12/26/18 18:11 12/26/18 22:04 12/26/18 23:52 Glucose (Fingerstick) 187 mg/dL (70-99) 175 mg/dL (70-99) 185 mg/dL (70-99) Potassium Level 3.9 mmol/L (3.5-5.1) Test 12/27/18 05:51 12/27/18 06:05 Glucose (Fingerstick) 187 mg/dL (70-99) White Blood Count 3.2 x10^3/uL (4.0-11.0) Red Blood Count 2.99 x10^6/uL (4.30-5.70) Hemoglobin 8.0 g/dL (13.0-17.5) Hematocrit 24.8 % (39.0-53.0) Mean Corpuscular Volume 83 fL (79-100) Mean Corpuscular Hemoglobin 27 pg (25-35) Mean Corpuscular Hemoglobin Concent 33 g/dL (31-37) Red Cell Distribution Width 19.6 % (11.5-14.5) Platelet Count 152 x10^3/uL (140-400) Neutrophils (%) (Auto) 66 % (31-73) Lymphocytes (%) (Auto) 16 % (24-48) Monocytes (%) (Auto) 14 % (0-9) Eosinophils (%) (Auto) 3 % (0-3) Basophils (%) (Auto) 1 % (0-3) Neutrophils # (Auto) 2.1 x10^3uL (1.8-7.7) Lymphocytes # (Auto) 0.5 x10^3/uL (1.0-4.8) Monocytes # (Auto) 0.4 x10^3/uL (0.0-1.1) Eosinophils # (Auto) 0.1 x10^3/uL (0.0-0.7) Basophils # (Auto) 0.0 x10^3/uL (0.0-0.2) Sodium Level 136 mmol/L (136-145) Potassium Level 3.8 mmol/L (3.5-5.1) Chloride Level 102 mmol/L (98-107) Carbon Dioxide Level 33 mmol/L (21-32) Anion Gap 1 (6-14) Blood Urea Nitrogen 13 mg/dL (8-26) Creatinine 0.4 mg/dL (0.7-1.3) Estimated GFR (Cockcroft-Gault) 220.9 BUN/Creatinine Ratio 33 (6-20) Glucose Level 222 mg/dL (70-99) Calcium Level 7.4 mg/dL (8.5-10.1) Magnesium Level 1.7 mg/dL (1.8-2.4) Total Bilirubin 0.5 mg/dL (0.2-1.0) Aspartate Amino Transf (AST/SGOT) 11 U/L (15-37) Alanine Aminotransferase (ALT/SGPT) 8 U/L (16-63) Alkaline Phosphatase 113 U/L (46-116) Total Protein 4.2 g/dL (6.4-8.2) Albumin 1.5 g/dL (3.4-5.0) Albumin/Globulin Ratio 0.6 (1.0-1.7) Meds Current Medications Albumin Human 100 ml @ 100 mls/hr 1X ONCE IV Last administered on 12/26/18at 10:43; Start 12/26/18 at 10:30; Stop 12/26/18 at 11:29; Status DC Albumin Human 100 ml @ 100 mls/hr 1X ONCE IV ; Start 12/27/18 at 09:15; Stop 12/27/18 at 10:14 Furosemide (Lasix) 40 mg 1X ONCE IVP Last administered on 12/26/18at 12:55; Start 12/26/18 at 12:00; Stop 12/26/18 at 12:01; Status DC Furosemide (Lasix) 40 mg 1X ONCE IVP ; Start 12/27/18 at 10:30; Stop 12/27/18 at 10:31 Magnesium Sulfate/ Dextrose 100 ml @ 100 mls/hr 1X ONCE IV Last administered on 12/26/18at 13:39; Start 12/26/18 at 13:00; Stop 12/26/18 at 13:59; Status DC Magnesium Sulfate/ Dextrose 100 ml @ 100 mls/hr 1X ONCE IV ; Start 12/26/18 at 14:30; Stop 12/26/18 at 15:29; Status UNV Sodium Chloride 110 meq/Sodium Acetate 12 meq/ Potassium Chloride 60 meq/ Potassium Phosphate 20 mmol/ Magnesium Sulfate 25 meq/Calcium Gluconate 9.3 meq / Multivitamins 10 ml/Chromium/ Copper/Manganese/ Seleni/Zn 1 ml/ Insulin Human Regular 85 unit/ Total Parenteral Nutrition/Amino Acids/Dextro... 1,800 ml @ 75 mls/hr TPN CONT IV Last administered on 12/26/18at 22:08; Start 12/26/18 at 22:00; Stop 12/27/18 at 21:59 Assessment Assessment 1. Acute respiratory failure. 2. Acute hypotension, on dopamine. The patient's urine output is stable, but the patient has a significant fluid retention due to third spacing. 3. Acute pancreatitis with pseudocyst. 4. Systolic congestive heart failure. 5. Coronary artery disease, history of coronary artery bypass graft x 5. 6. Acute metabolic encephalopathy. 7. History of fall with nasal fracture. 8. History of atrial fibrillation. 9. Hyperlipidemia. 10. Severe protein-calorie malnutrition. 11. Anemia. 12. Obesity hypoventilation syndrome, with likely obstructive sleep apnea, has been on BiPAP at night. PLAN: The patient is retaining significant amount of fluids, so I will give him 1 amp of 25% albumin along with 1 unit of packed red cells as well as Lasix. Continue IV dopamine to maintain systolic blood pressure. Monitor urine output. I ordered 1 unit of packed red cells because of significant blood loss yesterday along with significant hypotension with his coronary artery disease, congestive heart failure and third spacing due to hypotension even though his hemoglobin is 7.5. We will consult Dr. Moralez for cardiology evaluation and management, Dr. Cornejo for infectious disease evaluation and management and Dr. Romero has been consulted for pulmonary evaluation and management. Continue management of the mechanical ventilation. Continue to hold some of the previous medications. We will start TPN this evening and continue to monitor blood sugars every 6 hours and regular insulin to TPN and also start him on IV Protonix. Prognosis of this patient is very poor. For details, please refer to the orders. I will also consult Dr. Giraldo for GI evaluation and management. Fluid retention- ,give 1 amp of the IV albumin as well as 40 mg of IV Lasix. Consult Dr. Ken for management of fluid retention. He has severe anasarca. Albumin is only 1.5. He has decreased drainage in the MISTY drain. He put out a lot of the urine yesterday and has lost 6 pounds. Severe protein calorie malnutrition- continue TPN Diabetes mellitus type 2- not controlled. Continue regular insulin in TPN as well as sliding scale insulin. Hypokalemia-improving Hypomagnesemia- replace. Magnesium is 1.7. Discussed with patient's brother Weston. Hypotension- resolved off dopamine . Coronary artery disease- echocardiogram shows ejection fraction of 60%. Acute cholecystitis off. IV Zosyn. On Merrem and Zyvox Anemia- hemoglobin is 8. Plan Plan For more details regarding further plans, please refer to the orders. REHANA CASE MD Dec 27, 2018 09:17
[2018-12-27 09:58] LABS: BASE EXCESS ABG 8 mmol/L (-3-3); HCO3 ABG 33 mmol/L (21-28); PCO2 ABG 49 mmHg (35-46); PO2 ABG 77 mmHg (75-108); SAT O2 ABG 95 % (92-99)
--- NOTE | 2018-12-27 10:06 | PDOC ---
Infectious Disease Note Subjective Subjective High TF residuals, now on hold. Remains intubated, FiO2 40% No fevers last 24 hours No BM since admission TPN ROS ROS unobtainable Vital Sign Vital Signs Vital Signs Date Time Temp Pulse Resp B/P (MAP) Pulse Ox O2 Delivery O2 Flow Rate FiO2 12/27/18 09:00 75 16 121/49 (73) 93 Ventilator 12/27/18 08:00 98.2 98.2 Physical Exam PHYSICAL EXAM GENERAL: Intubated, sedated HEENT: PERRL, ETT LUNGS: Mechanical breath sounds . HEART: S1 and S2. No gallops or murmurs. ABDOMEN: Obese, soft, BS quiet, MISTY - sanguinous drainage, G-tube in place, midline incision well-approx, blister : Pepe in place, scrotal swelling EXTREMITIES: Generalized edema. DERMATOLOGICAL: Multiple tattoos. Warm and dry. No generalized rash. CENTRAL NERVOUS SYSTEM: Sedated and intubated. RUE-PICC ( POA), RIJ ( 12/22) and LUE art-lines without signs of any complications Labs Lab Laboratory Tests Test 12/26/18 12:27 12/26/18 18:11 12/26/18 22:04 12/26/18 23:52 Glucose (Fingerstick) 187 mg/dL (70-99) 175 mg/dL (70-99) 185 mg/dL (70-99) Potassium Level 3.9 mmol/L (3.5-5.1) Test 12/27/18 05:51 12/27/18 06:05 Glucose (Fingerstick) 187 mg/dL (70-99) White Blood Count 3.2 x10^3/uL (4.0-11.0) Red Blood Count 2.99 x10^6/uL (4.30-5.70) Hemoglobin 8.0 g/dL (13.0-17.5) Hematocrit 24.8 % (39.0-53.0) Mean Corpuscular Volume 83 fL (79-100) Mean Corpuscular Hemoglobin 27 pg (25-35) Mean Corpuscular Hemoglobin Concent 33 g/dL (31-37) Red Cell Distribution Width 19.6 % (11.5-14.5) Platelet Count 152 x10^3/uL (140-400) Neutrophils (%) (Auto) 66 % (31-73) Lymphocytes (%) (Auto) 16 % (24-48) Monocytes (%) (Auto) 14 % (0-9) Eosinophils (%) (Auto) 3 % (0-3) Basophils (%) (Auto) 1 % (0-3) Neutrophils # (Auto) 2.1 x10^3uL (1.8-7.7) Lymphocytes # (Auto) 0.5 x10^3/uL (1.0-4.8) Monocytes # (Auto) 0.4 x10^3/uL (0.0-1.1) Eosinophils # (Auto) 0.1 x10^3/uL (0.0-0.7) Basophils # (Auto) 0.0 x10^3/uL (0.0-0.2) Sodium Level 136 mmol/L (136-145) Potassium Level 3.8 mmol/L (3.5-5.1) Chloride Level 102 mmol/L (98-107) Carbon Dioxide Level 33 mmol/L (21-32) Anion Gap 1 (6-14) Blood Urea Nitrogen 13 mg/dL (8-26) Creatinine 0.4 mg/dL (0.7-1.3) Estimated GFR (Cockcroft-Gault) 220.9 BUN/Creatinine Ratio 33 (6-20) Glucose Level 222 mg/dL (70-99) Calcium Level 7.4 mg/dL (8.5-10.1) Magnesium Level 1.7 mg/dL (1.8-2.4) Total Bilirubin 0.5 mg/dL (0.2-1.0) Aspartate Amino Transf (AST/SGOT) 11 U/L (15-37) Alanine Aminotransferase (ALT/SGPT) 8 U/L (16-63) Alkaline Phosphatase 113 U/L (46-116) Total Protein 4.2 g/dL (6.4-8.2) Albumin 1.5 g/dL (3.4-5.0) Albumin/Globulin Ratio 0.6 (1.0-1.7) Micro ANAEROBIC RES 1 Preliminary Comment No anaerobes recovered in 48 hours. AEROBIC CULT Final Final report AEROBIC RES 1 Final Comment No growth in 56 - 72 hours. Objective Assessment Severe cholecystitis, status post cholecystectomy, 12/22/2018. Large pancreatic pseudocyst, status post open pancreatic pseudocyst gastrostomy , open cholecystectomy and gastrostomy tube placement on 12/22/2018. cx no growth Leucopenia , Mild thrombocytopenia ? cult neg, ? drug induced, though Zyvox was started on 12/24 Anemia, likely postop blood loss.S/P PRBC transfusion, 12/25 Acute respiratory failure postop intubated. History of heavy alcohol dependence. Systolic congestive heart failure. Coronary artery disease, status post coronary artery bypass graft. Acute metabolic encephalopathy. History of fall with nasal fracture. History of atrial fibrillation. Severe protein-calorie malnutrition. Obesity hypoventilation syndrome, likely obstructive sleep apnea, has bilevel positive airway pressure at night. Plan Plan of Care Merrem since 12/25 Check sputum cult and XRAY given increased 02 need and sputum - maybe plug that was removed by respiratory Previously on Zyvox and Zosyn d/c Flagyl Monitor labs/temp Supportive care. D/w nursing Attending Co-Sign Attending Co-Sign The patient was seen and interviewed as well as examined at the bedside. The chart was reviewed. The case was discussed. Agree with the plan of care. RACHEL CHEN APRN Dec 27, 2018 10:06 CHET WOODSON MD Dec 27, 2018 13:09
[2018-12-27] MEDS ORDERED: FUROSEMIDE 40 MG/4 ML VIAL. IVP ONE (10:30)
--- NOTE | 2018-12-27 10:32 | PDOC ---
G I PROGRESS NOTE Reason for Follow-up Pancreatic pseudocyst, post-op Subjective Sedated on ventilator. Not responsive. Objective Failed feeding trial. Physical Exam Lungs fairly clear anteriorly. RRR Abdomen soft, not apparently tender. MISTY output more serous. Review of Relevant I have reviewed the following items johanny (where applicable) has been applied. Labs Laboratory Tests Test 12/25/18 13:18 12/25/18 17:43 12/26/18 00:35 12/26/18 06:07 Glucose (Fingerstick) 231 mg/dL (70-99) 231 mg/dL (70-99) 175 mg/dL (70-99) 165 mg/dL (70-99) Test 12/26/18 06:10 12/26/18 09:00 12/26/18 12:27 12/26/18 18:11 White Blood Count 3.4 x10^3/uL (4.0-11.0) Red Blood Count 2.84 x10^6/uL (4.30-5.70) Hemoglobin 7.5 g/dL (13.0-17.5) Hematocrit 23.6 % (39.0-53.0) Mean Corpuscular Volume 83 fL (79-100) Mean Corpuscular Hemoglobin 27 pg (25-35) Mean Corpuscular Hemoglobin Concent 32 g/dL (31-37) Red Cell Distribution Width 18.8 % (11.5-14.5) Platelet Count 151 x10^3/uL (140-400) Neutrophils (%) (Auto) 65 % (31-73) Lymphocytes (%) (Auto) 16 % (24-48) Monocytes (%) (Auto) 14 % (0-9) Eosinophils (%) (Auto) 5 % (0-3) Basophils (%) (Auto) 1 % (0-3) Neutrophils # (Auto) 2.2 x10^3uL (1.8-7.7) Lymphocytes # (Auto) 0.5 x10^3/uL (1.0-4.8) Monocytes # (Auto) 0.5 x10^3/uL (0.0-1.1) Eosinophils # (Auto) 0.2 x10^3/uL (0.0-0.7) Basophils # (Auto) 0.0 x10^3/uL (0.0-0.2) Sodium Level 139 mmol/L (136-145) Potassium Level 3.6 mmol/L (3.5-5.1) Chloride Level 103 mmol/L (98-107) Carbon Dioxide Level 31 mmol/L (21-32) Anion Gap 5 (6-14) Blood Urea Nitrogen 11 mg/dL (8-26) Creatinine 0.5 mg/dL (0.7-1.3) Estimated GFR (Cockcroft-Gault) 170.8 BUN/Creatinine Ratio 22 (6-20) Glucose Level 188 mg/dL (70-99) Calcium Level 7.4 mg/dL (8.5-10.1) Phosphorus Level 3.8 mg/dL (2.6-4.7) Magnesium Level 1.5 mg/dL (1.8-2.4) Total Bilirubin 0.6 mg/dL (0.2-1.0) Aspartate Amino Transf (AST/SGOT) 9 U/L (15-37) Alanine Aminotransferase (ALT/SGPT) 12 U/L (16-63) Alkaline Phosphatase 123 U/L (46-116) Total Protein 4.1 g/dL (6.4-8.2) Albumin 1.5 g/dL (3.4-5.0) Albumin/Globulin Ratio 0.6 (1.0-1.7) O2 Saturation 93 % (92-99) Arterial Blood pH 7.41 (7.35-7.45) Arterial Blood pCO2 at Patient Temp 50 mmHg (35-46) Arterial Blood pO2 at Patient Temp 70 mmHg (75-108) Arterial Blood HCO3 31 mmol/L (21-28) Arterial Blood Base Excess 5 mmol/L (-3-3) FiO2 40% Glucose (Fingerstick) 187 mg/dL (70-99) 175 mg/dL (70-99) Test 12/26/18 22:04 12/26/18 23:52 12/27/18 05:51 12/27/18 06:05 Potassium Level 3.9 mmol/L (3.5-5.1) 3.8 mmol/L (3.5-5.1) Glucose (Fingerstick) 185 mg/dL (70-99) 187 mg/dL (70-99) White Blood Count 3.2 x10^3/uL (4.0-11.0) Red Blood Count 2.99 x10^6/uL (4.30-5.70) Hemoglobin 8.0 g/dL (13.0-17.5) Hematocrit 24.8 % (39.0-53.0) Mean Corpuscular Volume 83 fL (79-100) Mean Corpuscular Hemoglobin 27 pg (25-35) Mean Corpuscular Hemoglobin Concent 33 g/dL (31-37) Red Cell Distribution Width 19.6 % (11.5-14.5) Platelet Count 152 x10^3/uL (140-400) Neutrophils (%) (Auto) 66 % (31-73) Lymphocytes (%) (Auto) 16 % (24-48) Monocytes (%) (Auto) 14 % (0-9) Eosinophils (%) (Auto) 3 % (0-3) Basophils (%) (Auto) 1 % (0-3) Neutrophils # (Auto) 2.1 x10^3uL (1.8-7.7) Lymphocytes # (Auto) 0.5 x10^3/uL (1.0-4.8) Monocytes # (Auto) 0.4 x10^3/uL (0.0-1.1) Eosinophils # (Auto) 0.1 x10^3/uL (0.0-0.7) Basophils # (Auto) 0.0 x10^3/uL (0.0-0.2) Sodium Level 136 mmol/L (136-145) Chloride Level 102 mmol/L (98-107) Carbon Dioxide Level 33 mmol/L (21-32) Anion Gap 1 (6-14) Blood Urea Nitrogen 13 mg/dL (8-26) Creatinine 0.4 mg/dL (0.7-1.3) Estimated GFR (Cockcroft-Gault) 220.9 BUN/Creatinine Ratio 33 (6-20) Glucose Level 222 mg/dL (70-99) Calcium Level 7.4 mg/dL (8.5-10.1) Magnesium Level 1.7 mg/dL (1.8-2.4) Total Bilirubin 0.5 mg/dL (0.2-1.0) Aspartate Amino Transf (AST/SGOT) 11 U/L (15-37) Alanine Aminotransferase (ALT/SGPT) 8 U/L (16-63) Alkaline Phosphatase 113 U/L (46-116) Total Protein 4.2 g/dL (6.4-8.2) Albumin 1.5 g/dL (3.4-5.0) Albumin/Globulin Ratio 0.6 (1.0-1.7) Laboratory Tests Test 12/26/18 12:27 12/26/18 18:11 12/26/18 22:04 12/26/18 23:52 Glucose (Fingerstick) 187 mg/dL (70-99) 175 mg/dL (70-99) 185 mg/dL (70-99) Potassium Level 3.9 mmol/L (3.5-5.1) Test 12/27/18 05:51 12/27/18 06:05 Glucose (Fingerstick) 187 mg/dL (70-99) White Blood Count 3.2 x10^3/uL (4.0-11.0) Red Blood Count 2.99 x10^6/uL (4.30-5.70) Hemoglobin 8.0 g/dL (13.0-17.5) Hematocrit 24.8 % (39.0-53.0) Mean Corpuscular Volume 83 fL (79-100) Mean Corpuscular Hemoglobin 27 pg (25-35) Mean Corpuscular Hemoglobin Concent 33 g/dL (31-37) Red Cell Distribution Width 19.6 % (11.5-14.5) Platelet Count 152 x10^3/uL (140-400) Neutrophils (%) (Auto) 66 % (31-73) Lymphocytes (%) (Auto) 16 % (24-48) Monocytes (%) (Auto) 14 % (0-9) Eosinophils (%) (Auto) 3 % (0-3) Basophils (%) (Auto) 1 % (0-3) Neutrophils # (Auto) 2.1 x10^3uL (1.8-7.7) Lymphocytes # (Auto) 0.5 x10^3/uL (1.0-4.8) Monocytes # (Auto) 0.4 x10^3/uL (0.0-1.1) Eosinophils # (Auto) 0.1 x10^3/uL (0.0-0.7) Basophils # (Auto) 0.0 x10^3/uL (0.0-0.2) Sodium Level 136 mmol/L (136-145) Potassium Level 3.8 mmol/L (3.5-5.1) Chloride Level 102 mmol/L (98-107) Carbon Dioxide Level 33 mmol/L (21-32) Anion Gap 1 (6-14) Blood Urea Nitrogen 13 mg/dL (8-26) Creatinine 0.4 mg/dL (0.7-1.3) Estimated GFR (Cockcroft-Gault) 220.9 BUN/Creatinine Ratio 33 (6-20) Glucose Level 222 mg/dL (70-99) Calcium Level 7.4 mg/dL (8.5-10.1) Magnesium Level 1.7 mg/dL (1.8-2.4) Total Bilirubin 0.5 mg/dL (0.2-1.0) Aspartate Amino Transf (AST/SGOT) 11 U/L (15-37) Alanine Aminotransferase (ALT/SGPT) 8 U/L (16-63) Alkaline Phosphatase 113 U/L (46-116) Total Protein 4.2 g/dL (6.4-8.2) Albumin 1.5 g/dL (3.4-5.0) Albumin/Globulin Ratio 0.6 (1.0-1.7) Microbiology 12/22/18 Anaerobic/Aerobic Culture - Preliminary, Resulted 12/22/18 Anaerobic Culture Result 1 (MELONY) - Preliminary, Resulted 12/22/18 Aerobic Culture - Final, Resulted 12/22/18 Aerobic Culture Result 1 (MELONY) - Final, Resulted 12/22/18 Gram Stain - Final, Resulted 12/22/18 Gram Stain Result 1 (MELONY) - Final, Resulted 12/22/18 Gram Stain Result 2 (MELONY) - Final, Resulted LFT's normal. Vitals/I & O Vital Sign - Last 24 Hours 12/26/18 12/26/18 12/26/18 12/26/18 10:53 11:00 12:00 12:00 Temp 98.6 98.6 Pulse 76 76 76 Resp 16 16 B/P (MAP) 107/49 (68) 95/66 (76) 95/66 (76) Pulse Ox 94 95 O2 Delivery Ventilator Ventilator Ventilator 12/26/18 12/26/18 12/26/18 12/26/18 12:00 13:00 14:00 15:00 Pulse 74 76 76 Resp 18 16 16 B/P (MAP) 120/52 (74) 135/58 (83) 106/55 (72) Pulse Ox 95 94 95 O2 Delivery Mechanical Ventilator Ventilator Ventilator Ventilator 12/26/18 12/26/18 12/26/18 12/26/18 15:43 16:00 16:00 16:00 Pulse 75 75 Resp 16 B/P (MAP) 113/62 (79) 113/62 (79) Pulse Ox 95 95 O2 Delivery Ventilator Ventilator Mechanical Ventilator 12/26/18 12/26/18 12/26/18 12/26/18 16:50 17:00 18:00 19:00 Temp 98.7 98.7 Pulse 75 77 76 Resp 16 16 21 B/P (MAP) 116/50 (72) 129/56 (80) 144/52 (82) Pulse Ox 98 95 95 95 O2 Delivery Ventilator Ventilator Ventilator 12/26/18 12/26/18 12/26/18 12/26/18 20:00 20:00 20:47 21:00 Temp 97.9 97.9 Pulse 74 74 Resp 17 19 B/P (MAP) 134/48 (76) 140/52 (81) Pulse Ox 96 98 95 O2 Delivery Ventilator Mechanical Ventilator Ventilator 12/26/18 12/26/18 12/26/18 12/26/18 22:00 23:00 23:36 23:49 Pulse 72 72 Resp 14 18 B/P (MAP) 120/48 (72) 124/50 (74) Pulse Ox 96 96 95 96 O2 Delivery Ventilator Ventilator Ventilator 12/26/18 12/27/18 12/27/18 12/27/18 23:59 00:00 00:19 01:00 Temp 97.8 97.8 Pulse 74 74 Resp 23 25 B/P (MAP) 108/42 (64) 121/49 (73) Pulse Ox 95 95 O2 Delivery Mechanical Ventilator Ventilator Ventilator Ventilator 12/27/18 12/27/18 12/27/18 12/27/18 02:00 02:02 03:00 04:00 Pulse 78 74 Resp 22 19 B/P (MAP) 141/58 (85) 111/51 (71) Pulse Ox 93 92 95 O2 Delivery Ventilator Ventilator Mechanical Ventilator 12/27/18 12/27/18 12/27/1812/27/19 04:00 04:49 05:00 06:00 Temp 98.4 98.4 Pulse 76 76 76 Resp 18 20 18 B/P (MAP) 124/53 (76) 124/54 (77) 108/46 (66) Pulse Ox 94 95 94 94 O2 Delivery Ventilator Ventilator Ventilator 12/27/18 12/27/18 12/27/18 12/27/18 07:00 08:00 08:00 08:00 Temp 98.2 98.2 Pulse 75 75 75 Resp 18 16 B/P (MAP) 112/48 (69) 123/51 (75) 123/51 (75) Pulse Ox 94 94 O2 Delivery Ventilator Mechanical Ventilator Ventilator 12/27/18 12/27/18 09:00 10:00 Pulse 75 78 Resp 16 20 B/P (MAP) 121/49 (73) 132/55 (80) Pulse Ox 93 93 O2 Delivery Ventilator Ventilator Intake and Output 12/26/18 12/26/18 12/27/18 15:00 23:00 07:00 Intake Total 813 ml 1462.69 ml 1318 ml Output Total 2810 ml 2635 ml 1470 ml Balance -1997 ml -1172.31 ml -152 ml Assessment 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 Ongoing ileus. Plan of Care Note Continue support. Await return of gut function. JUSTIN RIVERA MD Dec 27, 2018 10:32
[2018-12-27 10:49] LABS: FIO2 ABG 40
--- NOTE | 2018-12-27 12:20 | PDOC ---
PULMONARY PROGRESS NOTES Subjective PT OFF SEDATION AC MODE Vitals Vital Signs Date Time Temp Pulse Resp B/P (MAP) Pulse Ox O2 Delivery O2 Flow Rate FiO2 12/27/18 11:56 93 Ventilator 12/27/18 10:00 78 20 132/55 (80) 12/27/18 08:00 98.2 98.2 Lungs: Crackles Cardiovascular: S1, S2 Abdomen: Soft, Other (G TUBE) Extremities: Other (EDEMA) Skin: Warm Labs Laboratory Tests Test 12/25/18 13:18 12/25/18 17:43 12/26/18 00:35 12/26/18 06:07 Glucose (Fingerstick) 231 mg/dL (70-99) 231 mg/dL (70-99) 175 mg/dL (70-99) 165 mg/dL (70-99) Test 12/26/18 06:10 12/26/18 09:00 12/26/18 12:27 12/26/18 18:11 White Blood Count 3.4 x10^3/uL (4.0-11.0) Red Blood Count 2.84 x10^6/uL (4.30-5.70) Hemoglobin 7.5 g/dL (13.0-17.5) Hematocrit 23.6 % (39.0-53.0) Mean Corpuscular Volume 83 fL (79-100) Mean Corpuscular Hemoglobin 27 pg (25-35) Mean Corpuscular Hemoglobin Concent 32 g/dL (31-37) Red Cell Distribution Width 18.8 % (11.5-14.5) Platelet Count 151 x10^3/uL (140-400) Neutrophils (%) (Auto) 65 % (31-73) Lymphocytes (%) (Auto) 16 % (24-48) Monocytes (%) (Auto) 14 % (0-9) Eosinophils (%) (Auto) 5 % (0-3) Basophils (%) (Auto) 1 % (0-3) Neutrophils # (Auto) 2.2 x10^3uL (1.8-7.7) Lymphocytes # (Auto) 0.5 x10^3/uL (1.0-4.8) Monocytes # (Auto) 0.5 x10^3/uL (0.0-1.1) Eosinophils # (Auto) 0.2 x10^3/uL (0.0-0.7) Basophils # (Auto) 0.0 x10^3/uL (0.0-0.2) Sodium Level 139 mmol/L (136-145) Potassium Level 3.6 mmol/L (3.5-5.1) Chloride Level 103 mmol/L (98-107) Carbon Dioxide Level 31 mmol/L (21-32) Anion Gap 5 (6-14) Blood Urea Nitrogen 11 mg/dL (8-26) Creatinine 0.5 mg/dL (0.7-1.3) Estimated GFR (Cockcroft-Gault) 170.8 BUN/Creatinine Ratio 22 (6-20) Glucose Level 188 mg/dL (70-99) Calcium Level 7.4 mg/dL (8.5-10.1) Phosphorus Level 3.8 mg/dL (2.6-4.7) Magnesium Level 1.5 mg/dL (1.8-2.4) Total Bilirubin 0.6 mg/dL (0.2-1.0) Aspartate Amino Transf (AST/SGOT) 9 U/L (15-37) Alanine Aminotransferase (ALT/SGPT) 12 U/L (16-63) Alkaline Phosphatase 123 U/L (46-116) Total Protein 4.1 g/dL (6.4-8.2) Albumin 1.5 g/dL (3.4-5.0) Albumin/Globulin Ratio 0.6 (1.0-1.7) O2 Saturation 93 % (92-99) Arterial Blood pH 7.41 (7.35-7.45) Arterial Blood pCO2 at Patient Temp 50 mmHg (35-46) Arterial Blood pO2 at Patient Temp 70 mmHg (75-108) Arterial Blood HCO3 31 mmol/L (21-28) Arterial Blood Base Excess 5 mmol/L (-3-3) FiO2 40% Glucose (Fingerstick) 187 mg/dL (70-99) 175 mg/dL (70-99) Test 12/26/18 22:04 12/26/18 23:52 12/27/18 05:51 12/27/18 06:05 Potassium Level 3.9 mmol/L (3.5-5.1) 3.8 mmol/L (3.5-5.1) Glucose (Fingerstick) 185 mg/dL (70-99) 187 mg/dL (70-99) White Blood Count 3.2 x10^3/uL (4.0-11.0) Red Blood Count 2.99 x10^6/uL (4.30-5.70) Hemoglobin 8.0 g/dL (13.0-17.5) Hematocrit 24.8 % (39.0-53.0) Mean Corpuscular Volume 83 fL (79-100) Mean Corpuscular Hemoglobin 27 pg (25-35) Mean Corpuscular Hemoglobin Concent 33 g/dL (31-37) Red Cell Distribution Width 19.6 % (11.5-14.5) Platelet Count 152 x10^3/uL (140-400) Neutrophils (%) (Auto) 66 % (31-73) Lymphocytes (%) (Auto) 16 % (24-48) Monocytes (%) (Auto) 14 % (0-9) Eosinophils (%) (Auto) 3 % (0-3) Basophils (%) (Auto) 1 % (0-3) Neutrophils # (Auto) 2.1 x10^3uL (1.8-7.7) Lymphocytes # (Auto) 0.5 x10^3/uL (1.0-4.8) Monocytes # (Auto) 0.4 x10^3/uL (0.0-1.1) Eosinophils # (Auto) 0.1 x10^3/uL (0.0-0.7) Basophils # (Auto) 0.0 x10^3/uL (0.0-0.2) Sodium Level 136 mmol/L (136-145) Chloride Level 102 mmol/L (98-107) Carbon Dioxide Level 33 mmol/L (21-32) Anion Gap 1 (6-14) Blood Urea Nitrogen 13 mg/dL (8-26) Creatinine 0.4 mg/dL (0.7-1.3) Estimated GFR (Cockcroft-Gault) 220.9 BUN/Creatinine Ratio 33 (6-20) Glucose Level 222 mg/dL (70-99) Calcium Level 7.4 mg/dL (8.5-10.1) Magnesium Level 1.7 mg/dL (1.8-2.4) Total Bilirubin 0.5 mg/dL (0.2-1.0) Aspartate Amino Transf (AST/SGOT) 11 U/L (15-37) Alanine Aminotransferase (ALT/SGPT) 8 U/L (16-63) Alkaline Phosphatase 113 U/L (46-116) Total Protein 4.2 g/dL (6.4-8.2) Albumin 1.5 g/dL (3.4-5.0) Albumin/Globulin Ratio 0.6 (1.0-1.7) Test 12/27/18 09:50 O2 Saturation 95 % (92-99) Arterial Blood pH 7.44 (7.35-7.45) Arterial Blood pCO2 at Patient Temp 49 mmHg (35-46) Arterial Blood pO2 at Patient Temp 77 mmHg (75-108) Arterial Blood HCO3 33 mmol/L (21-28) Arterial Blood Base Excess 8 mmol/L (-3-3) FiO2 40 Laboratory Tests Test 12/26/18 12:27 12/26/18 18:11 12/26/18 22:04 12/26/18 23:52 Glucose (Fingerstick) 187 mg/dL (70-99) 175 mg/dL (70-99) 185 mg/dL (70-99) Potassium Level 3.9 mmol/L (3.5-5.1) Test 12/27/18 05:51 12/27/18 06:05 12/27/18 09:50 Glucose (Fingerstick) 187 mg/dL (70-99) White Blood Count 3.2 x10^3/uL (4.0-11.0) Red Blood Count 2.99 x10^6/uL (4.30-5.70) Hemoglobin 8.0 g/dL (13.0-17.5) Hematocrit 24.8 % (39.0-53.0) Mean Corpuscular Volume 83 fL (79-100) Mean Corpuscular Hemoglobin 27 pg (25-35) Mean Corpuscular Hemoglobin Concent 33 g/dL (31-37) Red Cell Distribution Width 19.6 % (11.5-14.5) Platelet Count 152 x10^3/uL (140-400) Neutrophils (%) (Auto) 66 % (31-73) Lymphocytes (%) (Auto) 16 % (24-48) Monocytes (%) (Auto) 14 % (0-9) Eosinophils (%) (Auto) 3 % (0-3) Basophils (%) (Auto) 1 % (0-3) Neutrophils # (Auto) 2.1 x10^3uL (1.8-7.7) Lymphocytes # (Auto) 0.5 x10^3/uL (1.0-4.8) Monocytes # (Auto) 0.4 x10^3/uL (0.0-1.1) Eosinophils # (Auto) 0.1 x10^3/uL (0.0-0.7) Basophils # (Auto) 0.0 x10^3/uL (0.0-0.2) Sodium Level 136 mmol/L (136-145) Potassium Level 3.8 mmol/L (3.5-5.1) Chloride Level 102 mmol/L (98-107) Carbon Dioxide Level 33 mmol/L (21-32) Anion Gap 1 (6-14) Blood Urea Nitrogen 13 mg/dL (8-26) Creatinine 0.4 mg/dL (0.7-1.3) Estimated GFR (Cockcroft-Gault) 220.9 BUN/Creatinine Ratio 33 (6-20) Glucose Level 222 mg/dL (70-99) Calcium Level 7.4 mg/dL (8.5-10.1) Magnesium Level 1.7 mg/dL (1.8-2.4) Total Bilirubin 0.5 mg/dL (0.2-1.0) Aspartate Amino Transf (AST/SGOT) 11 U/L (15-37) Alanine Aminotransferase (ALT/SGPT) 8 U/L (16-63) Alkaline Phosphatase 113 U/L (46-116) Total Protein 4.2 g/dL (6.4-8.2) Albumin 1.5 g/dL (3.4-5.0) Albumin/Globulin Ratio 0.6 (1.0-1.7) O2 Saturation 95 % (92-99) Arterial Blood pH 7.44 (7.35-7.45) Arterial Blood pCO2 at Patient Temp 49 mmHg (35-46) Arterial Blood pO2 at Patient Temp 77 mmHg (75-108) Arterial Blood HCO3 33 mmol/L (21-28) Arterial Blood Base Excess 8 mmol/L (-3-3) FiO2 40 Medications Active Scripts Medications Dose Route/Sig Max Daily Dose Days Date Category Trophamine (Amino Acids 10 %) 500 Ml Iv.soln 500 Ml IV DAILY 199912/21/18 Reported Duoneb 0.5-3(2.5) Mg/3 Ml (Albuterol/Ipratropium) 3 Ml Ampul.neb 3 Ml NEB BID 12/21/18 Reported Dulcolax (Bisacodyl) 10 Mg Supp.rect 10 Mg RC PRN DAILY PRN 12/21/18 Reported Duoneb 0.5-3(2.5) Mg/3 Ml (Albuterol/Ipratropium) 3 Ml Ampul.neb 3 Ml NEB PRN Q4HRS PRN 12/21/18 Reported Atorvastatin Calcium 40 Mg Tablet 1 Tab PO QHS 12/21/18 Reported Simethicone 80 Mg Tab.chew 80 Mg PO PRN TID PRN 12/21/18 Reported Humalog (Insulin Lispro) 100 Unit/1 Ml Vial 0 SQ Q6HRS 12/21/18 Reported Ondansetron Hcl 4 Mg/2 Ml Vial (Ondansetron Hcl/Pf) 4 Mg/2 Ml Vial 4 Mg IJ PRN Q6HRS PRN 12/21/18 Reported Actos (Pioglitazone Hcl) 15 Mg Tablet 1 Tab PO DAILY 12/21/18 Reported Tylenol Extra Strength (Acetaminophen) 500 Mg Tablet 1,000 Mg PO PRN Q6HRS PRN 12/21/18 Reported Senokot-S Tablet (Sennosides/Docusate Sodium) 1 Each Tablet 1 Tab PO BID 12/21/18 Reported Vitamin D3 (Cholecalciferol (Vitamin D3)) 1,000 Unit Tablet 1 Tab PO DAILY 12/21/18 Reported Carvedilol (Carvedilol) 12.5 Mg Tablet 12.5 Mg PO BIDWMEALS 12/21/18 Reported Impression . IMPRESSION: 1. Expected hypoxemic respiratory failure, status post open pancreatic pseudocyst gastrostomy, open cholecystectomy, G-tube placement. 2. History of necrotizing pancreatitis. 3. Abnormal x-ray. 4. Possible sepsis. 5. Coronary artery disease, status post coronary artery bypass grafting. 6. History of alcoholism. 7. Protein malnutrition, present upon admission. 8. Acute blood loss anemia, expected. S/P TRANSFUSIONS Plan . WILL CONTINUE SUPPORT D/W BROTHER WILL KEEP OFF SEDATION TRIAL WHEN HE AWAKENS MAKING PROGRESS OFF PRESSORS D/W RN ABG NOTED DECREASE MINUTE VENTILATION DECREASE VT CXR REVIEWED PENDING TPN FOR NUTRITION DVT PROPH FOLLOW CONSULTANTS INPUT CCT 33 NALINI GASCA MD Dec 27, 2018 12:20
--- NOTE | 2018-12-27 13:07 | PDOC ---
PROGRESS NOTES Subjective Subjective on the vent, sedated Objective Objective Vital Signs Date Time Temp Pulse Resp B/P (MAP) Pulse Ox O2 Delivery O2 Flow Rate FiO2 12/27/18 12:00 12/27/18 12:00 98.1 76 20 90 Ventilator 98.1 12/22/18 10:52 3 Intake and Output 12/27/18 07:00 Intake Total 3593.69 ml Output Total 6915 ml Balance -3321.31 ml IV Total 3130.69 ml Tube Feeding 463 ml Output Urine Total 4330 ml Gastric Drainage Total 800 ml Drainage Total 1785 ml Physical Exam Abdomen: Soft (drains intact, incision looks good) Assessment Assessment PO cystgastrostomy, karis Plan Plan of Care Supportive care Comment Review of Relevant I have reviewed the following items johanny (where applicable) has been applied. Labs Laboratory Tests Test 12/25/18 13:18 12/25/18 17:43 12/26/18 00:35 12/26/18 06:07 Glucose (Fingerstick) 231 mg/dL (70-99) 231 mg/dL (70-99) 175 mg/dL (70-99) 165 mg/dL (70-99) Test 12/26/18 06:10 12/26/18 09:00 12/26/18 12:27 12/26/18 18:11 White Blood Count 3.4 x10^3/uL (4.0-11.0) Red Blood Count 2.84 x10^6/uL (4.30-5.70) Hemoglobin 7.5 g/dL (13.0-17.5) Hematocrit 23.6 % (39.0-53.0) Mean Corpuscular Volume 83 fL (79-100) Mean Corpuscular Hemoglobin 27 pg (25-35) Mean Corpuscular Hemoglobin Concent 32 g/dL (31-37) Red Cell Distribution Width 18.8 % (11.5-14.5) Platelet Count 151 x10^3/uL (140-400) Neutrophils (%) (Auto) 65 % (31-73) Lymphocytes (%) (Auto) 16 % (24-48) Monocytes (%) (Auto) 14 % (0-9) Eosinophils (%) (Auto) 5 % (0-3) Basophils (%) (Auto) 1 % (0-3) Neutrophils # (Auto) 2.2 x10^3uL (1.8-7.7) Lymphocytes # (Auto) 0.5 x10^3/uL (1.0-4.8) Monocytes # (Auto) 0.5 x10^3/uL (0.0-1.1) Eosinophils # (Auto) 0.2 x10^3/uL (0.0-0.7) Basophils # (Auto) 0.0 x10^3/uL (0.0-0.2) Sodium Level 139 mmol/L (136-145) Potassium Level 3.6 mmol/L (3.5-5.1) Chloride Level 103 mmol/L (98-107) Carbon Dioxide Level 31 mmol/L (21-32) Anion Gap 5 (6-14) Blood Urea Nitrogen 11 mg/dL (8-26) Creatinine 0.5 mg/dL (0.7-1.3) Estimated GFR (Cockcroft-Gault) 170.8 BUN/Creatinine Ratio 22 (6-20) Glucose Level 188 mg/dL (70-99) Calcium Level 7.4 mg/dL (8.5-10.1) Phosphorus Level 3.8 mg/dL (2.6-4.7) Magnesium Level 1.5 mg/dL (1.8-2.4) Total Bilirubin 0.6 mg/dL (0.2-1.0) Aspartate Amino Transf (AST/SGOT) 9 U/L (15-37) Alanine Aminotransferase (ALT/SGPT) 12 U/L (16-63) Alkaline Phosphatase 123 U/L (46-116) Total Protein 4.1 g/dL (6.4-8.2) Albumin 1.5 g/dL (3.4-5.0) Albumin/Globulin Ratio 0.6 (1.0-1.7) O2 Saturation 93 % (92-99) Arterial Blood pH 7.41 (7.35-7.45) Arterial Blood pCO2 at Patient Temp 50 mmHg (35-46) Arterial Blood pO2 at Patient Temp 70 mmHg (75-108) Arterial Blood HCO3 31 mmol/L (21-28) Arterial Blood Base Excess 5 mmol/L (-3-3) FiO2 40% Glucose (Fingerstick) 187 mg/dL (70-99) 175 mg/dL (70-99) Test 3/30/19 22:04 12/26/18 23:52 12/27/18 05:51 12/27/18 06:05 Potassium Level 3.9 mmol/L (3.5-5.1) 3.8 mmol/L (3.5-5.1) Glucose (Fingerstick) 185 mg/dL (70-99) 187 mg/dL (70-99) White Blood Count 3.2 x10^3/uL (4.0-11.0) Red Blood Count 2.99 x10^6/uL (4.30-5.70) Hemoglobin 8.0 g/dL (13.0-17.5) Hematocrit 24.8 % (39.0-53.0) Mean Corpuscular Volume 83 fL (79-100) Mean Corpuscular Hemoglobin 27 pg (25-35) Mean Corpuscular Hemoglobin Concent 33 g/dL (31-37) Red Cell Distribution Width 19.6 % (11.5-14.5) Platelet Count 152 x10^3/uL (140-400) Neutrophils (%) (Auto) 66 % (31-73) Lymphocytes (%) (Auto) 16 % (24-48) Monocytes (%) (Auto) 14 % (0-9) Eosinophils (%) (Auto) 3 % (0-3) Basophils (%) (Auto) 1 % (0-3) Neutrophils # (Auto) 2.1 x10^3uL (1.8-7.7) Lymphocytes # (Auto) 0.5 x10^3/uL (1.0-4.8) Monocytes # (Auto) 0.4 x10^3/uL (0.0-1.1) Eosinophils # (Auto) 0.1 x10^3/uL (0.0-0.7) Basophils # (Auto) 0.0 x10^3/uL (0.0-0.2) Sodium Level 136 mmol/L (136-145) Chloride Level 102 mmol/L (98-107) Carbon Dioxide Level 33 mmol/L (21-32) Anion Gap 1 (6-14) Blood Urea Nitrogen 13 mg/dL (8-26) Creatinine 0.4 mg/dL (0.7-1.3) Estimated GFR (Cockcroft-Gault) 220.9 BUN/Creatinine Ratio 33 (6-20) Glucose Level 222 mg/dL (70-99) Calcium Level 7.4 mg/dL (8.5-10.1) Magnesium Level 1.7 mg/dL (1.8-2.4) Total Bilirubin 0.5 mg/dL (0.2-1.0) Aspartate Amino Transf (AST/SGOT) 11 U/L (15-37) Alanine Aminotransferase (ALT/SGPT) 8 U/L (16-63) Alkaline Phosphatase 113 U/L (46-116) Total Protein 4.2 g/dL (6.4-8.2) Albumin 1.5 g/dL (3.4-5.0) Albumin/Globulin Ratio 0.6 (1.0-1.7) Test 12/27/18 09:50 O2 Saturation 95 % (92-99) Arterial Blood pH 7.44 (7.35-7.45) Arterial Blood pCO2 at Patient Temp 49 mmHg (35-46) Arterial Blood pO2 at Patient Temp 77 mmHg (75-108) Arterial Blood HCO3 33 mmol/L (21-28) Arterial Blood Base Excess 8 mmol/L (-3-3) FiO2 40 Laboratory Tests Test 12/26/18 18:11 12/26/18 22:04 12/26/18 23:52 12/27/18 05:51 Glucose (Fingerstick) 175 mg/dL (70-99) 185 mg/dL (70-99) 187 mg/dL (70-99) Potassium Level 3.9 mmol/L (3.5-5.1) Test 12/27/18 06:05 12/27/18 09:50 White Blood Count 3.2 x10^3/uL (4.0-11.0) Red Blood Count 2.99 x10^6/uL (4.30-5.70) Hemoglobin 8.0 g/dL (13.0-17.5) Hematocrit 24.8 % (39.0-53.0) Mean Corpuscular Volume 83 fL (79-100) Mean Corpuscular Hemoglobin 27 pg (25-35) Mean Corpuscular Hemoglobin Concent 33 g/dL (31-37) Red Cell Distribution Width 19.6 % (11.5-14.5) Platelet Count 152 x10^3/uL (140-400) Neutrophils (%) (Auto) 66 % (31-73) Lymphocytes (%) (Auto) 16 % (24-48) Monocytes (%) (Auto) 14 % (0-9) Eosinophils (%) (Auto) 3 % (0-3) Basophils (%) (Auto) 1 % (0-3) Neutrophils # (Auto) 2.1 x10^3uL (1.8-7.7) Lymphocytes # (Auto) 0.5 x10^3/uL (1.0-4.8) Monocytes # (Auto) 0.4 x10^3/uL (0.0-1.1) Eosinophils # (Auto) 0.1 x10^3/uL (0.0-0.7) Basophils # (Auto) 0.0 x10^3/uL (0.0-0.2) Sodium Level 136 mmol/L (136-145) Potassium Level 3.8 mmol/L (3.5-5.1) Chloride Level 102 mmol/L (98-107) Carbon Dioxide Level 33 mmol/L (21-32) Anion Gap 1 (6-14) Blood Urea Nitrogen 13 mg/dL (8-26) Creatinine 0.4 mg/dL (0.7-1.3) Estimated GFR (Cockcroft-Gault) 220.9 BUN/Creatinine Ratio 33 (6-20) Glucose Level 222 mg/dL (70-99) Calcium Level 7.4 mg/dL (8.5-10.1) Magnesium Level 1.7 mg/dL (1.8-2.4) Total Bilirubin 0.5 mg/dL (0.2-1.0) Aspartate Amino Transf (AST/SGOT) 11 U/L (15-37) Alanine Aminotransferase (ALT/SGPT) 8 U/L (16-63) Alkaline Phosphatase 113 U/L (46-116) Total Protein 4.2 g/dL (6.4-8.2) Albumin 1.5 g/dL (3.4-5.0) Albumin/Globulin Ratio 0.6 (1.0-1.7) O2 Saturation 95 % (92-99) Arterial Blood pH 7.44 (7.35-7.45) Arterial Blood pCO2 at Patient Temp 49 mmHg (35-46) Arterial Blood pO2 at Patient Temp 77 mmHg (75-108) Arterial Blood HCO3 33 mmol/L (21-28) Arterial Blood Base Excess 8 mmol/L (-3-3) FiO2 40 Microbiology 12/22/18 Anaerobic/Aerobic Culture - Preliminary, Resulted 12/22/18 Anaerobic Culture Result 1 (MELONY) - Preliminary, Resulted 12/22/18 Aerobic Culture - Final, Resulted 12/22/18 Aerobic Culture Result 1 (MELONY) - Final, Resulted 12/22/18 Gram Stain - Final, Resulted 12/22/18 Gram Stain Result 1 (MELONY) - Final, Resulted 12/22/18 Gram Stain Result 2 (MELONY) - Final, Resulted Medications Current Medications Heparin Sodium (Porcine) 1000 unit/Sodium Chloride 1,001 ml @ 1,001 mls/hr 1X ONCE IRR Last administered on 12/22/18at 12:56; Start 12/22/18 at 06:00; Stop at 06:59; Status DC Ondansetron HCl (Zofran) 4 mg PRN Q6HRS PRN IV NAUSEA/VOMITING; Start 12/22/18 at 07:00; Stop 12/22/18 at 19:00; Status DC Fentanyl Citrate (Fentanyl 2ml Vial) 25 mcg PRN Q5MIN PRN IV MILD PAIN; Start 12/22/18 at 07:00; Stop 12/22/18 at 19:00; Status DC Fentanyl Citrate (Fentanyl 2ml Vial) 50 mcg PRN Q5MIN PRN IV MODERATE TO SEVERE PAIN; Start 12/22/18 at 07:00; Stop 12/22/18 at 19:00; Status DC Morphine Sulfate (Morphine Sulfate) 1 mg PRN Q10MIN PRN IV SEVERE PAIN; Start 12/22/18 at 07:00; Stop 12/22/18 at 19:00; Status DC Ringer's Solution 1,000 ml @ 30 mls/hr Q24H IV Last administered on 12/22/18at 10:55; Start 12/22/18 at 07:00; Stop 12/22/18 at 18:59; Status DC Hydromorphone HCl (Dilaudid) 0.5 mg PRN Q10MIN PRN IV SEV PAIN, Second choice; Start 12/22/18 at 07:00; Stop 12/22/18 at 19:00; Status DC Prochlorperazine Edisylate (Compazine) 5 mg PACU PRN PRN IV NAUSEA, MRX1; Start 12/22/18 at 07:00; Stop 12/22/18 at 19:00; Status DC Ibuprofen (Motrin) 200 mg 1X PREOP PO ; Start 12/22/18 at 08:00; Stop 12/23/18 at 12:33; Status DC Cefazolin Sodium/ Dextrose 50 ml @ 100 mls/hr 1X PREOP PRN IV PRIOR TO PROCEDURE Last administered on 12/22/18at 11:28; Start 12/22/18 at 06:00; Stop at 18:00; Status DC Bisacodyl (Dulcolax Supp) 10 mg 1X PRN PRN CO CONSTIPATION; Start 12/22/18 at 08:00; Stop 12/22/18 at 18:00; Status DC Bupivacaine HCl/ Epinephrine Bitart (Sensorcain-Mpf Epi 0.5%-[id number]) 30 ml STK -MED ONCE .ROUTE Last administered on 12/22/18at 12:23; Start 12/22/18 at 07:03 ; Stop 12/22/18 at 08:05; Status DC Iohexol (Omnipaque 300 Mg/ml) 100 ml STK-MED ONCE .ROUTE Last administered on at 12:24; Start 12/22/18 at 07:03; Stop 12/22/18 at 08:05; Status DC Cellulose (Surgicel Hemostat 4x8) 1 each STK-MED ONCE .ROUTE Last administered on 12/22/18at 13:58; Start 12/22/18 at 07:03; Stop 12/22/18 at 08:05; Status DC Bisacodyl (Dulcolax Supp) 10 mg STK-MED ONCE .ROUTE ; Start 12/22/18 at 07:03; Stop 12/22/18 at 08:05; Status DC Propofol 20 ml @ As Directed STK-MED ONCE IV ; Start 12/22/18 at 09:59; Stop at 10:00; Status DC Lidocaine HCl (Lidocaine Pf 2% Vial) 5 ml STK-MED ONCE .ROUTE ; Start 12/22/18 at 09:59; Stop 12/22/18 at 10:00; Status DC Dexamethasone Sodium Phosphate (Decadron) 20 mg STK-MED ONCE .ROUTE ; Start at 09:59; Stop 12/22/18 at 10:00; Status DC Ondansetron HCl (Zofran) 4 mg STK-MED ONCE .ROUTE ; Start 12/22/18 at 09:59; Stop 12/22/18 at 10:00; Status DC Famotidine (Pepcid Vial) 20 mg STK-MED ONCE .ROUTE ; Start 12/22/18 at 09:59; Stop 12/22/18 at 10:00; Status DC Rocuronium [place] (Zemuron) 50 mg STK-MED ONCE .ROUTE ; Start 12/22/18 at 10:00 ; Stop 12/22/18 at 10:01; Status DC Midazolam HCl (Versed) 2 mg STK-MED ONCE .ROUTE ; Start 12/22/18 at 10:00; Stop 12/22/18 at 10:01; Status DC Fentanyl Citrate (Fentanyl 2ml Vial) 100 mcg STK-MED ONCE .ROUTE ; Start at 10:01; Stop 12/22/18 at 10:02; Status DC Ephedrine Sulfate (ePHEDrine PF IN SALINE SYRINGE) 50 mg STK-MED ONCE IV ; Start 12/22/18 at 11:42; Stop 12/22/18 at 11:43; Status DC Glycopyrrolate (Robinul) 1 mg STK-MED ONCE .ROUTE ; Start 12/22/18 at 12:28; Stop 12/22/18 at 12:29; Status DC Neostigmine Methylsulfate (Neostigmine Methylsulfate) 5 mg STK-MED ONCE .ROUTE ; Start 12/22/18 at 12:29; Stop 12/22/18 at 12:30; Status DC Sevoflurane (Ultane) 90 ml STK-MED ONCE IH ; Start 12/22/18 at 12:35; Stop 12/22 at 12:36; Status DC Phenylephrine HCl (PHENYLEPHRINE in 0.9% NACL PF) 1 mg STK-MED ONCE IV ; Start 12/22/18 at 12:39; Stop 12/22/18 at 12:40; Status DC Albumin Human 500 ml @ As Directed STK-MED ONCE IV ; Start 12/22/18 at 12:48; Stop 12/22/18 at 12:49; Status DC Phenylephrine HCl (Jeromy-Synephrine Inj) 10 mg STK-MED ONCE .ROUTE ; Start at 12:49; Stop 12/22/18 at 12:50; Status DC Rocuronium [place] (Zemuron) 50 mg STK-MED ONCE .ROUTE ; Start 12/22/18 at 13:04 ; Stop 12/22/18 at 13:05; Status DC Dopamine HCl/ Dextrose 250 ml @ As Directed STK-MED ONCE IV ; Start 12/22/18 at 13:15; Stop 12/22/18 at 13:16; Status DC Ephedrine Sulfate (Akovaz) 50 mg STK-MED ONCE .ROUTE ; Start 12/22/18 at 13:52; Stop 12/22/18 at 13:53; Status DC Rocuronium [place] (Zemuron) 50 mg STK-MED ONCE .ROUTE ; Start 12/22/18 at 13:52 ; Stop 12/22/18 at 13:53; Status DC Albumin Human 500 ml @ As Directed STK-MED ONCE IV ; Start 12/22/18 at 13:57; Stop 12/22/18 at 13:58; Status DC Ephedrine Sulfate (ePHEDrine PF IN SALINE SYRINGE) 50 mg STK-MED ONCE IV ; Start 12/22/18 at 14:29; Stop 12/22/18 at 14:30; Status DC Metronidazole 100 ml @ 100 mls/hr Q12HR IV Last administered on 12/27/18at 08: 28; Start 12/22/18 at 21:00; Stop 12/27/18 at 10:04; Status DC Cefazolin Sodium/ Dextrose 50 ml @ 100 mls/hr Q8H IV Last administered on 12/23at 12:10; Start 12/22/18 at 20:00; Stop 12/23/18 at 13:48; Status DC Enoxaparin Sodium (Lovenox 40mg Syringe) 40 mg Q24H SQ Last administered on at 08:25; Start 12/23/18 at 09:00; Stop 12/26/18 at 09:48; Status DC Sodium Chloride (Normal Saline Flush) 3 ml QSHIFT PRN IV AFTER MEDS AND BLOOD DRAWS; Start 12/22/18 at 14:45 Ringer's Solution 1,000 ml @ 100 mls/hr Q10H IV Last administered on at 07:08; Start 12/22/18 at 16:00; Stop 12/25/18 at 15:08; Status DC Naloxone HCl (Narcan) 0.4 mg PRN Q2MIN PRN IV SEE INSTRUCTIONS; Start 12/22/18 at 14:45 Sodium Chloride 1,000 ml @ 25 mls/hr Q24H IV Last administered on 12/26/18at 18 :10; Start 12/22/18 at 16:00 Morphine Sulfate 30 ml @ 0 mls/hr CONT PRN PRN IV PER PROTOCOL Last administered on 12/22/18at 17:50; Start 12/22/18 at 14:45; Stop 12/22/18 at 18:22 ; Status DC Ondansetron HCl (Zofran) 4 mg PRN Q6HRS PRN IV NAUESA, 1ST CHOICE; Start at 14:45 Chlorhexidine Gluconate (Peridex) 15 ml BID MM Last administered on 12/25/18at 21:12; Start 12/22/18 at 21:00; Stop 12/26/18 at 07:46; Status DC Midazolam HCl 100 ml @ 0 mls/hr CONT PRN IV SEE PROTOCOL Last administered on at 04:56; Start 12/22/18 at 15:30 Dopamine HCl/ Dextrose 250 ml @ 8.686 mls/ hr CONT PRN IV SEE I/O RECORD Last administered on 12/24/18at 21:56; Start 12/22/18 at 17:45 Morphine Sulfate 30 ml @ 0 mls/hr CONT PRN PRN IV PER PROTOCOL Last administered on 12/26/18at 23:49; Start 12/22/18 at 18:30 Magnesium Sulfate/ Dextrose 100 ml @ 25 mls/hr 1X ONCE IV ; Start 12/23/18 at 09:00; Stop 12/23/18 at 12:59; Status UNV Insulin Human Lispro (HumaLOG) 0-8 UNITS Q6HRS SQ Last administered on at 18:15; Start 12/23/18 at 12:00 Magnesium Sulfate 50 ml @ 25 mls/hr Q2H IV Last administered on 12/23/18at 12:09 ; Start 12/23/18 at 09:15; Stop 12/23/18 at 13:14; Status DC Info (Tpn Per Pharmacy) 1 each PRN DAILY PRN MC SEE COMMENTS Last administered on 12/26/18at 12:47; Start 12/23/18 at 09:15 Furosemide (Lasix) 20 mg 1X ONCE IVP Last administered on 12/23/18 12:03; Start 12/23/18 at 09:15; Stop 12/23/18 at 09:19; Status DC Albumin Human 100 ml @ 100 mls/hr 1X ONCE IV Last administered on 12/23/18at 09:48; Start 12/23/18 at 09:15; Stop 12/23/18 at 10:14; Status DC Pantoprazole Sodium (PROTONIX VIAL for IV PUSH) 40 mg DAILYAC IVP Last administered on 12/27/18at 08:28; Start 12/23/18 at 10:30 Cefazolin Sodium/ Dextrose (Ancef 2gm Premix) 2 gm STK-MED ONCE IV ; Start 12/22 at 12:00; Stop 12/23/18 at 12:38; Status DC Sodium Chloride 110 meq/Sodium Acetate 12 meq/ Potassium Chloride 36 meq/ Magnesium Sulfate 12 meq/Calcium Gluconate 9.3 meq/ Multivitamins 10 ml/Chromium / Copper/Manganese/ Seleni/Zn 1 ml/ Insulin Human Regular 70 unit/ Total Parenteral Nutrition/Amino Acids/Dextrose/ Fat Emulsion Intravenous 2,400 ml @ 100 mls/hr TPN CONT IV Last administered on 12/23/18at 22:15; Start 12/23/18 at 22:00; Stop 12/24/18 at 21:59; Status DC Piperacillin Sod/ Tazobactam Sod 3.375 gm/Sodium Chloride 50 ml @ 100 mls/hr Q6HRS IV Last administered on 12/25/18at 06:13; Start 12/23/18 at 18:00; Stop at 09:18; Status DC Linezolid/Dextrose 300 ml @ 300 mls/hr Q12HR IV Last administered on at 08:41; Start 12/24/18 at 09:00; Stop 12/25/18 at 09:18; Status DC Magnesium Sulfate 50 ml @ 25 mls/hr 1X ONCE IV Last administered on 12/24/18at 10:34; Start 12/24/18 at 10:30; Stop 12/24/18 at 12:29; Status DC Potassium Phosphate 10 mmol/ Dextrose 103.3333 ml @ 51.667 m... Q2H IV Last administered on 12/24/18at 13:02; Start 12/24/18 at 10:30; Stop 12/24/18 at 14:29 ; Status DC Furosemide (Lasix) 20 mg 1X ONCE IVP Last administered on 12/24/18at 13:03; Start 12/24/18 at 11:15; Stop 12/24/18 at 11:19; Status DC Albumin Human 100 ml @ 100 mls/hr 1X ONCE IV Last administered on 12/24/18at 12:41; Start 12/24/18 at 11:15; Stop 12/24/18 at 12:14; Status DC Potassium Chloride/Water 50 ml @ 50 mls/hr Q1H IV Last administered on at 14:10; Start 12/24/18 at 13:30; Stop 12/24/18 at 15:29; Status DC Sodium Chloride 110 meq/Sodium Acetate 12 meq/ Potassium Chloride 50 meq/ Potassium Phosphate 20 mmol/ Magnesium Sulfate 20 meq/Calcium Gluconate 9.3 meq / Multivitamins 10 ml/Chromium/ Copper/Manganese/ Seleni/Zn 1 ml/ Insulin Human Regular 80 unit/ Total Parenteral Nutrition/Amino Acids/Dextro... 2,400 ml @ 100 mls/hr TPN CONT IV Last administered on 12/24/18at 23:24; Start 12/24/18 at 22:00; Stop 12/25/18 at 21:59; Status DC Meropenem 500 mg/ Sodium Chloride 50 ml @ 100 mls/hr Q6HRS IV Last administered on 12/27/18at 05:51; Start 12/25/18 at 12:00 Potassium Chloride/Water 50 ml @ 50 mls/hr Q1H IV Last administered on at 11:58; Start 12/25/18 at 10:00; Stop 12/25/18 at 11:59; Status DC Magnesium Sulfate 50 ml @ 25 mls/hr 1X ONCE IV Last administered on 12/25/18at 10:06; Start 12/25/18 at 09:30; Stop 12/25/18 at 11:29; Status DC Albumin Human 100 ml @ 100 mls/hr 1X ONCE IV Last administered on 12/25/18at 11:12; Start 12/25/18 at 10:15; Stop 12/25/18 at 11:14; Status DC Furosemide (Lasix) 40 mg 1X ONCE IVP ; Start 12/25/18 at 10:15; Stop 12/25/18 at 10:16; Status Cancel Sodium Chloride 110 meq/Sodium Acetate 12 meq/ Potassium Chloride 60 meq/ Potassium Phosphate 20 mmol/ Magnesium Sulfate 25 meq/Calcium Gluconate 9.3 meq / Multivitamins 10 ml/Chromium/ Copper/Manganese/ Seleni/Zn 1 ml/ Insulin Human Regular 85 unit/ Total Parenteral Nutrition/Amino Acids/Dextro... 2,400 ml @ 100 mls/hr TPN CONT IV Last administered on 12/25/18at 21:16; Start 12/25/18 at 22:00; Stop 12/26/18 at 21:59; Status DC Furosemide (Lasix) 40 mg 1X ONCE IVP Last administered on 12/25/18at 16:11; Start 12/25/18 at 16:15; Stop 12/25/18 at 16:16; Status DC Albumin Human 100 ml @ 100 mls/hr 1X ONCE IV Last administered on 12/26/18at 10:43; Start 12/26/18 at 10:30; Stop 12/26/18 at 11:29; Status DC Furosemide (Lasix) 40 mg 1X ONCE IVP Last administered on 12/26/18at 12:55; Start 12/26/18 at 12:00; Stop 12/26/18 at 12:01; Status DC Sodium Chloride 110 meq/Sodium Acetate 12 meq/ Potassium Chloride 60 meq/ Potassium Phosphate 20 mmol/ Magnesium Sulfate 25 meq/Calcium Gluconate 9.3 meq / Multivitamins 10 ml/Chromium/ Copper/Manganese/ Seleni/Zn 1 ml/ Insulin Human Regular 85 unit/ Total Parenteral Nutrition/Amino Acids/Dextro... 1,800 ml @ 75 mls/hr TPN CONT IV Last administered on 12/26/18at 22:08; Start 12/26/18 at 22:00; Stop 12/27/18 at 21:59 Magnesium Sulfate/ Dextrose 100 ml @ 100 mls/hr 1X ONCE IV Last administered on 12/26/18at 13:39; Start 12/26/18 at 13:00; Stop 12/26/18 at 13:59; Status DC Magnesium Sulfate/ Dextrose 100 ml @ 100 mls/hr 1X ONCE IV ; Start 12/26/18 at 14:30; Stop 12/26/18 at 15:29; Status UNV Albumin Human 100 ml @ 100 mls/hr 1X ONCE IV Last administered on 12/27/18at 09:34; Start 12/27/18 at 09:15; Stop 12/27/18 at 10:14; Status DC Furosemide (Lasix) 40 mg 1X ONCE IVP Last administered on 12/27/18at 10:34; Start 12/27/18 at 10:30; Stop 12/27/18 at 10:31; Status DC Magnesium Sulfate/ Dextrose 100 ml @ 100 mls/hr 1X ONCE IV ; Start 12/27/18 at 14:00; Stop 12/27/18 at 14:59 Active Scripts Active Reported Trophamine (Amino Acids 10 %) 500 Ml Iv.soln 500 Ml IV DAILY 2000 Duoneb 0.5-3(2.5) Mg/3 Ml (Albuterol/Ipratropium) 3 Ml Ampul.neb 3 Ml NEB BID Dulcolax (Bisacodyl) 10 Mg Supp.rect 10 Mg RC PRN DAILY PRN Duoneb 0.5-3(2.5) Mg/3 Ml (Albuterol/Ipratropium) 3 Ml Ampul.neb 3 Ml NEB PRN Q4HRS PRN Atorvastatin Calcium 40 Mg Tablet 1 Tab PO QHS Simethicone 80 Mg Tab.chew 80 Mg PO PRN TID PRN Humalog (Insulin Lispro) 100 Unit/1 Ml Vial 0 SQ Q6HRS Ondansetron Hcl 4 Mg/2 Ml Vial (Ondansetron Hcl/Pf) 4 Mg/2 Ml Vial 4 Mg IJ PRN Q6HRS PRN Actos (Pioglitazone Hcl) 15 Mg Tablet 1 Tab PO DAILY Tylenol Extra Strength (Acetaminophen) 500 Mg Tablet 1,000 Mg PO PRN Q6HRS PRN Senokot-S Tablet (Sennosides/Docusate Sodium) 1 Each Tablet 1 Tab PO BID Vitamin D3 (Cholecalciferol (Vitamin D3)) 1,000 Unit Tablet 1 Tab PO DAILY Carvedilol (Carvedilol) 12.5 Mg Tablet 12.5 Mg PO BIDWMEALS Vitals/I & O Vital Sign - Last 24 Hours 12/26/18 12/26/18 12/26/18 12/26/18 14:00 15:00 15:43 16:00 Pulse 76 76 75 Resp 16 16 B/P (MAP) 135/58 (83) 106/55 (72) 113/62 (79) Pulse Ox 94 95 95 O2 Delivery Ventilator Ventilator Ventilator 12/26/18 12/26/18 12/26/18 12/26/18 16:00 16:00 16:50 17:00 Temp 98.7 98.7 Pulse 75 75 Resp 16 16 B/P (MAP) 113/62 (79) 116/50 (72) Pulse Ox 95 98 95 O2 Delivery Ventilator Mechanical Ventilator Ventilator 12/26/18 12/26/18 12/26/18 12/26/18 18:00 19:00 20:00 20:00 Temp 97.9 97.9 Pulse 77 76 74 Resp 16 21 17 B/P (MAP) 129/56 (80) 144/52 (82) 134/48 (76) Pulse Ox 95 95 96 O2 Delivery Ventilator Ventilator Ventilator Mechanical Ventilator 12/26/18 12/26/18 12/26/18 12/26/18 20:47 21:00 22:00 23:00 Pulse 74 72 72 Resp 19 14 18 B/P (MAP) 140/52 (81) 120/48 (72) 124/50 (74) Pulse Ox 98 95 96 96 O2 Delivery Ventilator Ventilator Ventilator 12/26/18 12/26/18 12/26/18 12/27/18 23:36 23:49 23:59 00:00 Temp 97.8 97.8 Pulse 74 Resp 23 B/P (MAP) 108/42 (64) Pulse Ox 95 96 95 O2 Delivery Ventilator Mechanical Ventilator Ventilator 12/27/18 12/27/18 12/27/18 12/27/18 00:19 01:00 02:00 02:02 Pulse 74 78 Resp 25 22 B/P (MAP) 121/49 (73) 141/58 (85) Pulse Ox 95 93 92 O2 Delivery Ventilator Ventilator Ventilator 312/27/18 12/27/18 12/27/18 03:00 04:00 04:00 04:49 Temp 98.4 98.4 Pulse 74 76 Resp 19 18 B/P (MAP) 111/51 (71) 124/53 (76) Pulse Ox 95 94 95 O2 Delivery Ventilator Mechanical Ventilator Ventilator 12/27/18 12/27/18 12/27/18 12/27/18 05:00 06:00 07:00 08:00 Pulse 76 76 75 75 Resp 20 18 18 B/P (MAP) 124/54 (77) 108/46 (66) 112/48 (69) 123/51 (75) Pulse Ox 94 94 94 O2 Delivery Ventilator Ventilator Ventilator 12/27/18 12/27/18 12/27/18 12/27/18 08:00 08:00 09:00 10:00 Temp 98.2 98.2 Pulse 75 75 78 Resp 16 16 20 B/P (MAP) 123/51 (75) 121/49 (73) 132/55 (80) Pulse Ox 94 93 93 O2 Delivery Mechanical Ventilator Ventilator Ventilator Ventilator 12/27/18 12/27/18 12/27/18 12/27/18 11:00 11:56 12:00 12:00 Temp 98.1 98.1 Pulse 76 76 Resp 16 20 B/P (MAP) 138/56 (83) 132/50 (77) Pulse Ox 93 93 90 O2 Delivery Ventilator Ventilator Mechanical Ventilator Ventilator 12/27/18 12:00 B/P (MAP) Intake and Output 12/26/18 12/26/18 12/27/18 15:00 23:00 07:00 Intake Total 813 ml 1462.69 ml 1318 ml Output Total 2810 ml 2635 ml 1470 ml Balance -1997 ml -1172.31 ml -152 ml JONNY LEACH MD Dec 27, 2018 13:07
[2018-12-27] MEDS ORDERED: MAGNESIUM SULFATE 1GM 100 ML IV ONE (14:00)
--- NOTE | 2018-12-27 14:33 | RAD ---
CHEST AP ONLY Clinical Indication: increased O2 requirements Comparison: 12/23/2018 portable chest x-ray exam. Findings: Endotracheal tube is in place. Sternal wires are present. Right internal jugular catheter is overlying the superior vena cava. Right-sided PICC noted. Mediastinal clips are present. The cardiomediastinal silhouette is normal. Slight pulmonary vasculature congestion noted. There is no pneumothorax. Slight decrease in the small left pleural effusion noted. Subtle left basilar opacification which may represent atelectasis or consolidation noted. No acute bone abnormality. IMPRESSION: Slight decrease in small left pleural effusion. Mild pulmonary vasculature congestion. Electronically signed by: Regan Ching MD (12/27/2018 2:30 PM) [facility]
[2018-12-27] MEDS: TPN PER PHARMACY MC PRN (15:25)
--- NOTE | 2018-12-27 15:29 | NUR ---
Pharmacy TPN Dosing Note S: JUSTIN OLSEN is a 58 year old M Currently receiving Central Continuous TPN B:Pertinent PMH: PANCREATITIS; Alf TPN from [facility] Height: 6 feet, 0 inches Weight: 112.9 kg Current diet: NPO LABS: Sodium: 136 Potassium: 3.8 Chloride: 102 Calcium: 7.4 Corrected Calcium: 9.40 Magnesium: 1.7 CO2: 33 SCr: 0.4 Glucose: 185-222 Albumin: 1.5 AST: 11 ALT: 8 TPN FORMULA: TPN TYPE: Central Continuous AMINO ACIDS: 100 gm DEXTROSE: 375 gm LIPIDS: 30 gm SODIUM CHLORIDE: 110 mEq SODIUM ACETATE: 12 mEq POTASSIUM CHLORIDE: 60 mEq POTASSIUM PHOSPHATE: 20 mmol MAGNESIUM: 25 mEq CALCIUM: 9.3 mEq INSULIN: 85 units MULTIPLE VITAMIN: 10 ml TRACE ELEMENTS: 1 ml TPN PLAN: No changes today; 1g of magnsium ordered IVPB. R: Continue TPN Will monitor electrolytes, glucose, and tolerance to TPN. Vicky Garces Andria, 12/27/18 [id number]
[2018-12-27] MEDS: IV NORMAL SALINE 1000ML BAG 1,000 ML IV SCH (17:39)
[2018-12-27] MEDS ORDERED: TOTAL PARENTERAL NUTRITION IV SCH ×12 (22:00)
[2018-12-27] MEDS ORDERED: [UNRECOGNIZED DRUG - OTHER] IV SCH ×12 (22:00)
[2018-12-27] MEDS ORDERED: DEXTROSE 70% IV SCH ×12 (22:00)
[2018-12-27] MEDS ORDERED: AMINO ACID IV SCH ×12 (22:00)
[2018-12-28] VITALS (25 sets, daily range): BP systolic 104–169; BP diastolic 46–63
[2018-12-28] MEDS: MEROPENEM 500 MG in IV NORMAL SALINE 50ML 50 ML IV SCH ×4 (00:07→19:00)
[2018-12-28] MEDS: INSULIN LISPRO 300 UNITS/3 ML INSULN.PEN. SQ SCH ×4 (00:10→19:04)
[2018-12-28] MEDS: MIDAZOLAM 100mg/100ml NS BAG 100 ML IV PRN (04:13)
[2018-12-28] MEDS: MORPHINE SULFATE/PF 30 ML IV PRN (05:37)
[2018-12-28 06:45] LABS: ALBUMIN 1.7 g/dL (3.4-5.0); ALBUMIN/GLOBULIN RATIO 0.6 (1.0-1.7); BASO % 1 % (0-3); CALCIUM 7.8 mg/dL (8.5-10.1); CREATININE 0.5 mg/dL (0.7-1.3); EOS # 0.1 x10^3/uL (0.0-0.7); EOS % 3 % (0-3); GFR 170.8; HEMATOCRIT 25.5 % (39.0-53.0); HEMOGLOBIN 8.1 g/dL (13.0-17.5); LYMPH # 0.7 x10^3/uL (1.0-4.8); LYMPH % 19 % (24-48); MAGNESIUM 1.6 mg/dL (1.8-2.4); MEAN CORPUSCULAR HEMOGLOBIN 27 pg (25-35); MEAN CORPUSCULAR HGB CONC 32 g/dL (31-37); MEAN CORPUSCULAR VOLUME 84 fL (79-100); MONO # 0.5 x10^3/uL (0.0-1.1); MONO % 14 % (0-9); NEUT # 2.3 x10^3uL (1.8-7.7); NEUT % 63 % (31-73); PLATELET COUNT 184 x10^3/uL (140-400); POTASSIUM 4.2 mmol/L (3.5-5.1); RED BLOOD COUNT 3.04 x10^6/uL (4.30-5.70); RED CELL DISTRIBUTION WIDTH 19.5 % (11.5-14.5); TOTAL BILIRUBIN 0.6 mg/dL (0.2-1.0); TOTAL PROTEIN 4.5 g/dL (6.4-8.2); WHITE BLOOD COUNT 3.7 x10^3/uL (4.0-11.0)
--- NOTE | 2018-12-28 07:25 | PDOC ---
Infectious Disease Note Subjective Subjective Intubated/sedated ROS ROS Unable to obtain Vital Sign Vital Signs Vital Signs Date Time Temp Pulse Resp B/P (MAP) Pulse Ox O2 Delivery O2 Flow Rate FiO2 12/28/18 06:07 15 95 Ventilator 12/28/18 06:00 85 104/48 (66) 12/28/18 04:00 99.5 99.5 Physical Exam PHYSICAL EXAM GENERAL: Intubated, sedated HEENT: PERRL, ETT LUNGS: Mechanical breath sounds . HEART: S1 and S2. No gallops or murmurs. ABDOMEN: Obese, soft, BS quiet, MISTY - sanguinous drainage, G-tube in place, midline incision well-approx, blister : Ppee in place, scrotal swelling EXTREMITIES: Generalized edema. DERMATOLOGICAL: Multiple tattoos. Warm and dry. No generalized rash. CENTRAL NERVOUS SYSTEM: Sedated and intubated. RUE-PICC ( POA), RIJ ( 12/22) and LUE art-lines without signs of any complications Labs Lab Laboratory Tests Test 12/27/18 09:50 12/27/18 13:14 12/27/18 17:37 12/27/18 23:41 O2 Saturation 95 % (92-99) Arterial Blood pH 7.44 (7.35-7.45) Arterial Blood pCO2 at Patient Temp 49 mmHg (35-46) Arterial Blood pO2 at Patient Temp 77 mmHg (75-108) Arterial Blood HCO3 33 mmol/L (21-28) Arterial Blood Base Excess 8 mmol/L (-3-3) FiO2 40 Glucose (Fingerstick) 214 mg/dL (70-99) 200 mg/dL (70-99) 159 mg/dL (70-99) Test 12/28/18 00:06 12/28/18 05:40 12/28/18 05:50 Glucose (Fingerstick) 177 mg/dL (70-99) 167 mg/dL (70-99) White Blood Count 3.7 x10^3/uL (4.0-11.0) Red Blood Count 3.04 x10^6/uL (4.30-5.70) Hemoglobin 8.1 g/dL (13.0-17.5) Hematocrit 25.5 % (39.0-53.0) Mean Corpuscular Volume 84 fL (79-100) Mean Corpuscular Hemoglobin 27 pg (25-35) Mean Corpuscular Hemoglobin Concent 32 g/dL (31-37) Red Cell Distribution Width 19.5 % (11.5-14.5) Platelet Count 184 x10^3/uL (140-400) Neutrophils (%) (Auto) 63 % (31-73) Lymphocytes (%) (Auto) 19 % (24-48) Monocytes (%) (Auto) 14 % (0-9) Eosinophils (%) (Auto) 3 % (0-3) Basophils (%) (Auto) 1 % (0-3) Neutrophils # (Auto) 2.3 x10^3uL (1.8-7.7) Lymphocytes # (Auto) 0.7 x10^3/uL (1.0-4.8) Monocytes # (Auto) 0.5 x10^3/uL (0.0-1.1) Eosinophils # (Auto) 0.1 x10^3/uL (0.0-0.7) Basophils # (Auto) 0.0 x10^3/uL (0.0-0.2) Sodium Level 141 mmol/L (136-145) Potassium Level 4.2 mmol/L (3.5-5.1) Chloride Level 103 mmol/L (98-107) Carbon Dioxide Level 36 mmol/L (21-32) Anion Gap 2 (6-14) Blood Urea Nitrogen 11 mg/dL (8-26) Creatinine 0.5 mg/dL (0.7-1.3) Estimated GFR (Cockcroft-Gault) 170.8 BUN/Creatinine Ratio 22 (6-20) Glucose Level 182 mg/dL (70-99) Calcium Level 7.8 mg/dL (8.5-10.1) Phosphorus Level 4.0 mg/dL (2.6-4.7) Magnesium Level 1.6 mg/dL (1.8-2.4) Total Bilirubin 0.6 mg/dL (0.2-1.0) Aspartate Amino Transf (AST/SGOT) 13 U/L (15-37) Alanine Aminotransferase (ALT/SGPT) 11 U/L (16-63) Alkaline Phosphatase 135 U/L (46-116) Total Protein 4.5 g/dL (6.4-8.2) Albumin 1.7 g/dL (3.4-5.0) Albumin/Globulin Ratio 0.6 (1.0-1.7) Micro Microbiology 12/22/18 Anaerobic/Aerobic Culture - Preliminary, Resulted 12/22/18 Anaerobic Culture Result 1 (MELONY) - Preliminary, Resulted 12/22/18 Aerobic Culture - Final, Resulted 12/22/18 Aerobic Culture Result 1 (MELONY) - Final, Resulted 12/22/18 Gram Stain - Final, Resulted 12/22/18 Gram Stain Result 1 (MELONY) - Final, Resulted 12/22/18 Gram Stain Result 2 (MELONY) - Final, Resulted Objective Assessment Severe cholecystitis, status post cholecystectomy, 12/22/2018. Large pancreatic pseudocyst, status post open pancreatic pseudocyst gastrostomy , open cholecystectomy and gastrostomy tube placement on 12/22/2018. Leucopenia , Mild thrombocytopenia ? cult neg, ? drug induced, though Zyvox was started on 12/24 so unlikely - better today Anemia, likely postop blood loss.S/P PRBC transfusion, 12/25 Acute respiratory failure postop intubated. History of heavy alcohol dependence. Systolic congestive heart failure. Coronary artery disease, status post coronary artery bypass graft. Acute metabolic encephalopathy. History of fall with nasal fracture. History of atrial fibrillation. Severe protein-calorie malnutrition. Obesity hypoventilation syndrome, likely obstructive sleep apnea, has bilevel positive airway pressure at night. Plan Plan of Care Cont Merrem since 12/25 F/u sputum cult Monitor labs/temp Supportive care. Critically ill D/w nursing CHTE WOODSON MD Dec 28, 2018 07:25
--- NOTE | 2018-12-28 07:46 | RAD ---
Portable chest, 12/28/2018: HISTORY: Respiratory failure The ET tube is unchanged in position with its tip lying 7 cm above the juan. The right jugular central venous catheter extends in the superior vena cava. The right PICC extends to the level the atrial caval junction. The heart is unchanged in size. The pulmonary vascularity appears congested and somewhat poorly defined. There are moderate ongoing bibasilar opacities compatible with pleural fluid and underlying atelectasis/infiltrate. This has worsened slightly on the right, although differences in patient positioning could be contributing to this apparent change. IMPRESSION: 1. Stable tube positions. 2. Ongoing pleural effusions and bibasilar atelectasis/infiltrate with slight interval worsening on the right. Electronically signed by: Michoacano Bruce MD (12/28/2018 7:43 AM) [facility]
--- NOTE | 2018-12-28 08:02 | PDOC ---
SURGICAL PROGRESS NOTE Subjective intubated drain increased drainage over night Vital Signs Vital Signs Date Time Temp Pulse Resp B/P (MAP) Pulse Ox O2 Delivery O2 Flow Rate FiO2 12/28/18 06:07 15 95 Ventilator 12/28/18 06:00 85 104/48 (66) 12/28/18 04:00 99.5 99.5 I&O Intake and Output 12/28/18 07:00 Intake Total 2574.43 ml Output Total 6130 ml Balance -3555.57 ml IV Total 2574.43 ml Output Urine Total 4590 ml Drainage Total 1540 ml PATIENT HAS A MAGAÑA: Yes General: Other (sedated, intubated) Abdomen: Soft, Other (ruth-serosang, g tube to DD, incision c/d/i, no erythema, mild distention) Labs Laboratory Tests Test 12/26/18 09:00 12/26/18 12:27 12/26/18 18:11 12/26/18 22:04 O2 Saturation 93 % (92-99) Arterial Blood pH 7.41 (7.35-7.45) Arterial Blood pCO2 at Patient Temp 50 mmHg (35-46) Arterial Blood pO2 at Patient Temp 70 mmHg (75-108) Arterial Blood HCO3 31 mmol/L (21-28) Arterial Blood Base Excess 5 mmol/L (-3-3) FiO2 40% Glucose (Fingerstick) 187 mg/dL (70-99) 175 mg/dL (70-99) Potassium Level 3.9 mmol/L (3.5-5.1) Test 12/26/18 23:52 12/27/18 05:51 12/27/18 06:05 12/27/18 09:50 Glucose (Fingerstick) 185 mg/dL (70-99) 187 mg/dL (70-99) White Blood Count 3.2 x10^3/uL (4.0-11.0) Red Blood Count 2.99 x10^6/uL (4.30-5.70) Hemoglobin 8.0 g/dL (13.0-17.5) Hematocrit 24.8 % (39.0-53.0) Mean Corpuscular Volume 83 fL (79-100) Mean Corpuscular Hemoglobin 27 pg (25-35) Mean Corpuscular Hemoglobin Concent 33 g/dL (31-37) Red Cell Distribution Width 19.6 % (11.5-14.5) Platelet Count 152 x10^3/uL (140-400) Neutrophils (%) (Auto) 66 % (31-73) Lymphocytes (%) (Auto) 16 % (24-48) Monocytes (%) (Auto) 14 % (0-9) Eosinophils (%) (Auto) 3 % (0-3) Basophils (%) (Auto) 1 % (0-3) Neutrophils # (Auto) 2.1 x10^3uL (1.8-7.7) Lymphocytes # (Auto) 0.5 x10^3/uL (1.0-4.8) Monocytes # (Auto) 0.4 x10^3/uL (0.0-1.1) Eosinophils # (Auto) 0.1 x10^3/uL (0.0-0.7) Basophils # (Auto) 0.0 x10^3/uL (0.0-0.2) Sodium Level 136 mmol/L (136-145) Potassium Level 3.8 mmol/L (3.5-5.1) Chloride Level 102 mmol/L (98-107) Carbon Dioxide Level 33 mmol/L (21-32) Anion Gap 1 (6-14) Blood Urea Nitrogen 13 mg/dL (8-26) Creatinine 0.4 mg/dL (0.7-1.3) Estimated GFR (Cockcroft-Gault) 220.9 BUN/Creatinine Ratio 33 (6-20) Glucose Level 222 mg/dL (70-99) Calcium Level 7.4 mg/dL (8.5-10.1) Magnesium Level 1.7 mg/dL (1.8-2.4) Total Bilirubin 0.5 mg/dL (0.2-1.0) Aspartate Amino Transf (AST/SGOT) 11 U/L (15-37) Alanine Aminotransferase (ALT/SGPT) 8 U/L (16-63) Alkaline Phosphatase 113 U/L (46-116) Total Protein 4.2 g/dL (6.4-8.2) Albumin 1.5 g/dL (3.4-5.0) Albumin/Globulin Ratio 0.6 (1.0-1.7) O2 Saturation 95 % (92-99) Arterial Blood pH 7.44 (7.35-7.45) Arterial Blood pCO2 at Patient Temp 49 mmHg (35-46) Arterial Blood pO2 at Patient Temp 77 mmHg (75-108) Arterial Blood HCO3 33 mmol/L (21-28) Arterial Blood Base Excess 8 mmol/L (-3-3) FiO2 40 Test 12/27/18 13:14 12/27/18 17:37 12/27/18 23:41 12/28/18 00:06 Glucose (Fingerstick) 214 mg/dL (70-99) 200 mg/dL (70-99) 159 mg/dL (70-99) 177 mg/dL (70-99) Test 12/28/18 05:40 12/28/18 05:50 Glucose (Fingerstick) 167 mg/dL (70-99) White Blood Count 3.7 x10^3/uL (4.0-11.0) Red Blood Count 3.04 x10^6/uL (4.30-5.70) Hemoglobin 8.1 g/dL (13.0-17.5) Hematocrit 25.5 % (39.0-53.0) Mean Corpuscular Volume 84 fL (79-100) Mean Corpuscular Hemoglobin 27 pg (25-35) Mean Corpuscular Hemoglobin Concent 32 g/dL (31-37) Red Cell Distribution Width 19.5 % (11.5-14.5) Platelet Count 184 x10^3/uL (140-400) Neutrophils (%) (Auto) 63 % (31-73) Lymphocytes (%) (Auto) 19 % (24-48) Monocytes (%) (Auto) 14 % (0-9) Eosinophils (%) (Auto) 3 % (0-3) Basophils (%) (Auto) 1 % (0-3) Neutrophils # (Auto) 2.3 x10^3uL (1.8-7.7) Lymphocytes # (Auto) 0.7 x10^3/uL (1.0-4.8) Monocytes # (Auto) 0.5 x10^3/uL (0.0-1.1) Eosinophils # (Auto) 0.1 x10^3/uL (0.0-0.7) Basophils # (Auto) 0.0 x10^3/uL (0.0-0.2) Sodium Level 141 mmol/L (136-145) Potassium Level 4.2 mmol/L (3.5-5.1) Chloride Level 103 mmol/L (98-107) Carbon Dioxide Level 36 mmol/L (21-32) Anion Gap 2 (6-14) Blood Urea Nitrogen 11 mg/dL (8-26) Creatinine 0.5 mg/dL (0.7-1.3) Estimated GFR (Cockcroft-Gault) 170.8 BUN/Creatinine Ratio 22 (6-20) Glucose Level 182 mg/dL (70-99) Calcium Level 7.8 mg/dL (8.5-10.1) Phosphorus Level 4.0 mg/dL (2.6-4.7) Magnesium Level 1.6 mg/dL (1.8-2.4) Total Bilirubin 0.6 mg/dL (0.2-1.0) Aspartate Amino Transf (AST/SGOT) 13 U/L (15-37) Alanine Aminotransferase (ALT/SGPT) 11 U/L (16-63) Alkaline Phosphatase 135 U/L (46-116) Total Protein 4.5 g/dL (6.4-8.2) Albumin 1.7 g/dL (3.4-5.0) Albumin/Globulin Ratio 0.6 (1.0-1.7) Laboratory Tests Test 12/27/18 09:50 12/27/18 13:14 12/27/18 17:37 12/27/18 23:41 O2 Saturation 95 % (92-99) Arterial Blood pH 7.44 (7.35-7.45) Arterial Blood pCO2 at Patient Temp 49 mmHg (35-46) Arterial Blood pO2 at Patient Temp 77 mmHg (75-108) Arterial Blood HCO3 33 mmol/L (21-28) Arterial Blood Base Excess 8 mmol/L (-3-3) FiO2 40 Glucose (Fingerstick) 214 mg/dL (70-99) 200 mg/dL (70-99) 159 mg/dL (70-99) Test 12/28/18 00:06 12/28/18 05:40 12/28/18 05:50 Glucose (Fingerstick) 177 mg/dL (70-99) 167 mg/dL (70-99) White Blood Count 3.7 x10^3/uL (4.0-11.0) Red Blood Count 3.04 x10^6/uL (4.30-5.70) Hemoglobin 8.1 g/dL (13.0-17.5) Hematocrit 25.5 % (39.0-53.0) Mean Corpuscular Volume 84 fL (79-100) Mean Corpuscular Hemoglobin 27 pg (25-35) Mean Corpuscular Hemoglobin Concent 32 g/dL (31-37) Red Cell Distribution Width 19.5 % (11.5-14.5) Platelet Count 184 x10^3/uL (140-400) Neutrophils (%) (Auto) 63 % (31-73) Lymphocytes (%) (Auto) 19 % (24-48) Monocytes (%) (Auto) 14 % (0-9) Eosinophils (%) (Auto) 3 % (0-3) Basophils (%) (Auto) 1 % (0-3) Neutrophils # (Auto) 2.3 x10^3uL (1.8-7.7) Lymphocytes # (Auto) 0.7 x10^3/uL (1.0-4.8) Monocytes # (Auto) 0.5 x10^3/uL (0.0-1.1) Eosinophils # (Auto) 0.1 x10^3/uL (0.0-0.7) Basophils # (Auto) 0.0 x10^3/uL (0.0-0.2) Sodium Level 141 mmol/L (136-145) Potassium Level 4.2 mmol/L (3.5-5.1) Chloride Level 103 mmol/L (98-107) Carbon Dioxide Level 36 mmol/L (21-32) Anion Gap 2 (6-14) Blood Urea Nitrogen 11 mg/dL (8-26) Creatinine 0.5 mg/dL (0.7-1.3) Estimated GFR (Cockcroft-Gault) 170.8 BUN/Creatinine Ratio 22 (6-20) Glucose Level 182 mg/dL (70-99) Calcium Level 7.8 mg/dL (8.5-10.1) Phosphorus Level 4.0 mg/dL (2.6-4.7) Magnesium Level 1.6 mg/dL (1.8-2.4) Total Bilirubin 0.6 mg/dL (0.2-1.0) Aspartate Amino Transf (AST/SGOT) 13 U/L (15-37) Alanine Aminotransferase (ALT/SGPT) 11 U/L (16-63) Alkaline Phosphatase 135 U/L (46-116) Total Protein 4.5 g/dL (6.4-8.2) Albumin 1.7 g/dL (3.4-5.0) Albumin/Globulin Ratio 0.6 (1.0-1.7) Problem List supportive measures MAIKOL MORRELL [employer] Dec 28, 2018 08:02
[2018-12-28] MEDS: PANTOPRAZOLE IV PUSH 40 MG VIAL. IVP SCH (08:50)
--- NOTE | 2018-12-28 08:59 | PDOC ---
PULMONARY PROGRESS NOTES Subjective PT OFF SEDATION AC MODE Vitals Vital Signs Date Time Temp Pulse Resp B/P (MAP) Pulse Ox O2 Delivery O2 Flow Rate FiO2 12/28/18 08:05 99.1 93 18 117/52 (73) 99 Ventilator 99.1 Lungs: Crackles Cardiovascular: S1, S2 Abdomen: Soft, Other (G TUBE) Extremities: Other (EDEMA) Skin: Warm Labs Laboratory Tests Test 12/26/18 09:00 12/26/18 12:27 12/26/18 18:11 12/26/18 22:04 O2 Saturation 93 % (92-99) Arterial Blood pH 7.41 (7.35-7.45) Arterial Blood pCO2 at Patient Temp 50 mmHg (35-46) Arterial Blood pO2 at Patient Temp 70 mmHg (75-108) Arterial Blood HCO3 31 mmol/L (21-28) Arterial Blood Base Excess 5 mmol/L (-3-3) FiO2 40% Glucose (Fingerstick) 187 mg/dL (70-99) 175 mg/dL (70-99) Potassium Level 3.9 mmol/L (3.5-5.1) Test 12/26/18 23:52 12/27/18 05:51 12/27/18 06:05 12/27/18 09:50 Glucose (Fingerstick) 185 mg/dL (70-99) 187 mg/dL (70-99) White Blood Count 3.2 x10^3/uL (4.0-11.0) Red Blood Count 2.99 x10^6/uL (4.30-5.70) Hemoglobin 8.0 g/dL (13.0-17.5) Hematocrit 24.8 % (39.0-53.0) Mean Corpuscular Volume 83 fL (79-100) Mean Corpuscular Hemoglobin 27 pg (25-35) Mean Corpuscular Hemoglobin Concent 33 g/dL (31-37) Red Cell Distribution Width 19.6 % (11.5-14.5) Platelet Count 152 x10^3/uL (140-400) Neutrophils (%) (Auto) 66 % (31-73) Lymphocytes (%) (Auto) 16 % (24-48) Monocytes (%) (Auto) 14 % (0-9) Eosinophils (%) (Auto) 3 % (0-3) Basophils (%) (Auto) 1 % (0-3) Neutrophils # (Auto) 2.1 x10^3uL (1.8-7.7) Lymphocytes # (Auto) 0.5 x10^3/uL (1.0-4.8) Monocytes # (Auto) 0.4 x10^3/uL (0.0-1.1) Eosinophils # (Auto) 0.1 x10^3/uL (0.0-0.7) Basophils # (Auto) 0.0 x10^3/uL (0.0-0.2) Sodium Level 136 mmol/L (136-145) Potassium Level 3.8 mmol/L (3.5-5.1) Chloride Level 102 mmol/L (98-107) Carbon Dioxide Level 33 mmol/L (21-32) Anion Gap 1 (6-14) Blood Urea Nitrogen 13 mg/dL (8-26) Creatinine 0.4 mg/dL (0.7-1.3) Estimated GFR (Cockcroft-Gault) 220.9 BUN/Creatinine Ratio 33 (6-20) Glucose Level 222 mg/dL (70-99) Calcium Level 7.4 mg/dL (8.5-10.1) Magnesium Level 1.7 mg/dL (1.8-2.4) Total Bilirubin 0.5 mg/dL (0.2-1.0) Aspartate Amino Transf (AST/SGOT) 11 U/L (15-37) Alanine Aminotransferase (ALT/SGPT) 8 U/L (16-63) Alkaline Phosphatase 113 U/L (46-116) Total Protein 4.2 g/dL (6.4-8.2) Albumin 1.5 g/dL (3.4-5.0) Albumin/Globulin Ratio 0.6 (1.0-1.7) O2 Saturation 95 % (92-99) Arterial Blood pH 7.44 (7.35-7.45) Arterial Blood pCO2 at Patient Temp 49 mmHg (35-46) Arterial Blood pO2 at Patient Temp 77 mmHg (75-108) Arterial Blood HCO3 33 mmol/L (21-28) Arterial Blood Base Excess 8 mmol/L (-3-3) FiO2 40 Test 12/27/18 13:14 12/27/18 17:37 12/27/18 23:41 12/28/18 00:06 Glucose (Fingerstick) 214 mg/dL (70-99) 200 mg/dL (70-99) 159 mg/dL (70-99) 177 mg/dL (70-99) Test 12/28/18 05:40 12/28/18 05:50 Glucose (Fingerstick) 167 mg/dL (70-99) White Blood Count 3.7 x10^3/uL (4.0-11.0) Red Blood Count 3.04 x10^6/uL (4.30-5.70) Hemoglobin 8.1 g/dL (13.0-17.5) Hematocrit 25.5 % (39.0-53.0) Mean Corpuscular Volume 84 fL (79-100) Mean Corpuscular Hemoglobin 27 pg (25-35) Mean Corpuscular Hemoglobin Concent 32 g/dL (31-37) Red Cell Distribution Width 19.5 % (11.5-14.5) Platelet Count 184 x10^3/uL (140-400) Neutrophils (%) (Auto) 63 % (31-73) Lymphocytes (%) (Auto) 19 % (24-48) Monocytes (%) (Auto) 14 % (0-9) Eosinophils (%) (Auto) 3 % (0-3) Basophils (%) (Auto) 1 % (0-3) Neutrophils # (Auto) 2.3 x10^3uL (1.8-7.7) Lymphocytes # (Auto) 0.7 x10^3/uL (1.0-4.8) Monocytes # (Auto) 0.5 x10^3/uL (0.0-1.1) Eosinophils # (Auto) 0.1 x10^3/uL (0.0-0.7) Basophils # (Auto) 0.0 x10^3/uL (0.0-0.2) Sodium Level 141 mmol/L (136-145) Potassium Level 4.2 mmol/L (3.5-5.1) Chloride Level 103 mmol/L (98-107) Carbon Dioxide Level 36 mmol/L (21-32) Anion Gap 2 (6-14) Blood Urea Nitrogen 11 mg/dL (8-26) Creatinine 0.5 mg/dL (0.7-1.3) Estimated GFR (Cockcroft-Gault) 170.8 BUN/Creatinine Ratio 22 (6-20) Glucose Level 182 mg/dL (70-99) Calcium Level 7.8 mg/dL (8.5-10.1) Phosphorus Level 4.0 mg/dL (2.6-4.7) Magnesium Level 1.6 mg/dL (1.8-2.4) Total Bilirubin 0.6 mg/dL (0.2-1.0) Aspartate Amino Transf (AST/SGOT) 13 U/L (15-37) Alanine Aminotransferase (ALT/SGPT) 11 U/L (16-63) Alkaline Phosphatase 135 U/L (46-116) Total Protein 4.5 g/dL (6.4-8.2) Albumin 1.7 g/dL (3.4-5.0) Albumin/Globulin Ratio 0.6 (1.0-1.7) Laboratory Tests Test 12/27/18 09:50 12/27/18 13:14 12/27/18 17:37 12/27/18 23:41 O2 Saturation 95 % (92-99) Arterial Blood pH 7.44 (7.35-7.45) Arterial Blood pCO2 at Patient Temp 49 mmHg (35-46) Arterial Blood pO2 at Patient Temp 77 mmHg (75-108) Arterial Blood HCO3 33 mmol/L (21-28) Arterial Blood Base Excess 8 mmol/L (-3-3) FiO2 40 Glucose (Fingerstick) 214 mg/dL (70-99) 200 mg/dL (70-99) 159 mg/dL (70-99) Test 12/28/18 00:06 12/28/18 05:40 12/28/18 05:50 Glucose (Fingerstick) 177 mg/dL (70-99) 167 mg/dL (70-99) White Blood Count 3.7 x10^3/uL (4.0-11.0) Red Blood Count 3.04 x10^6/uL (4.30-5.70) Hemoglobin 8.1 g/dL (13.0-17.5) Hematocrit 25.5 % (39.0-53.0) Mean Corpuscular Volume 84 fL (79-100) Mean Corpuscular Hemoglobin 27 pg (25-35) Mean Corpuscular Hemoglobin Concent 32 g/dL (31-37) Red Cell Distribution Width 19.5 % (11.5-14.5) Platelet Count 184 x10^3/uL (140-400) Neutrophils (%) (Auto) 63 % (31-73) Lymphocytes (%) (Auto) 19 % (24-48) Monocytes (%) (Auto) 14 % (0-9) Eosinophils (%) (Auto) 3 % (0-3) Basophils (%) (Auto) 1 % (0-3) Neutrophils # (Auto) 2.3 x10^3uL (1.8-7.7) Lymphocytes # (Auto) 0.7 x10^3/uL (1.0-4.8) Monocytes # (Auto) 0.5 x10^3/uL (0.0-1.1) Eosinophils # (Auto) 0.1 x10^3/uL (0.0-0.7) Basophils # (Auto) 0.0 x10^3/uL (0.0-0.2) Sodium Level 141 mmol/L (136-145) Potassium Level 4.2 mmol/L (3.5-5.1) Chloride Level 103 mmol/L (98-107) Carbon Dioxide Level 36 mmol/L (21-32) Anion Gap 2 (6-14) Blood Urea Nitrogen 11 mg/dL (8-26) Creatinine 0.5 mg/dL (0.7-1.3) Estimated GFR (Cockcroft-Gault) 170.8 BUN/Creatinine Ratio 22 (6-20) Glucose Level 182 mg/dL (70-99) Calcium Level 7.8 mg/dL (8.5-10.1) Phosphorus Level 4.0 mg/dL (2.6-4.7) Magnesium Level 1.6 mg/dL (1.8-2.4) Total Bilirubin 0.6 mg/dL (0.2-1.0) Aspartate Amino Transf (AST/SGOT) 13 U/L (15-37) Alanine Aminotransferase (ALT/SGPT) 11 U/L (16-63) Alkaline Phosphatase 135 U/L (46-116) Total Protein 4.5 g/dL (6.4-8.2) Albumin 1.7 g/dL (3.4-5.0) Albumin/Globulin Ratio 0.6 (1.0-1.7) Medications Active Scripts Medications Dose Route/Sig Max Daily Dose Days Date Category Trophamine (Amino Acids 10 %) 500 Ml Iv.soln 500 Ml IV DAILY 199912/21/18 Reported Duoneb 0.5-3(2.5) Mg/3 Ml (Albuterol/Ipratropium) 3 Ml Ampul.neb 3 Ml NEB BID 12/21/18 Reported Dulcolax (Bisacodyl) 10 Mg Supp.rect 10 Mg RC PRN DAILY PRN 12/21/18 Reported Duoneb 0.5-3(2.5) Mg/3 Ml (Albuterol/Ipratropium) 3 Ml Ampul.neb 3 Ml NEB PRN Q4HRS PRN 12/21/18 Reported Atorvastatin Calcium 40 Mg Tablet 1 Tab PO QHS 12/21/18 Reported Simethicone 80 Mg Tab.chew 80 Mg PO PRN TID PRN 12/21/18 Reported Humalog (Insulin Lispro) 100 Unit/1 Ml Vial 0 SQ Q6HRS 12/21/18 Reported Ondansetron Hcl 4 Mg/2 Ml Vial (Ondansetron Hcl/Pf) 4 Mg/2 Ml Vial 4 Mg IJ PRN Q6HRS PRN 12/21/18 Reported Actos (Pioglitazone Hcl) 15 Mg Tablet 1 Tab PO DAILY 12/21/18 Reported Tylenol Extra Strength (Acetaminophen) 500 Mg Tablet 1,000 Mg PO PRN Q6HRS PRN 12/21/18 Reported Senokot-S Tablet (Sennosides/Docusate Sodium) 1 Each Tablet 1 Tab PO BID 12/21/18 Reported Vitamin D3 (Cholecalciferol (Vitamin D3)) 1,000 Unit Tablet 1 Tab PO DAILY 12/21/18 Reported Carvedilol (Carvedilol) 12.5 Mg Tablet 12.5 Mg PO BIDWMEALS 12/21/18 Reported Impression . IMPRESSION: 1. Expected hypoxemic respiratory failure, status post open pancreatic pseudocyst gastrostomy, open cholecystectomy, G-tube placement. 2. History of necrotizing pancreatitis. 3. Abnormal x-ray. 4. Possible sepsis. 5. Coronary artery disease, status post coronary artery bypass grafting. 6. History of alcoholism. 7. Protein malnutrition, present upon admission. 8. Acute blood loss anemia, expected. S/P TRANSFUSIONS CXR 1. Stable tube positions. 2. Ongoing pleural effusions and bibasilar atelectasis/infiltrate with slight interval worsening on the right. Plan . WILL CONTINUE SUPPORT TRIAL WHEN HE AWAKENS MAKING PROGRESS OFF PRESSORS D/W RN ABG NOTED DECREASE MINUTE VENTILATION DECREASE VT TPN FOR NUTRITION DVT PROPH FOLLOW CONSULTANTS INPUT CCT 33 NALINI GASCA MD Dec 28, 2018 08:59
[2018-12-28 09:20] LABS: BASE EXCESS ABG 10 mmol/L (-3-3); HCO3 ABG 36 mmol/L (21-28); PCO2 ABG 58 mmHg (35-46); PO2 ABG 83 mmHg (75-108); SAT O2 ABG 96 % (92-99)
[2018-12-28 09:28] LABS: FIO2 ABG 50
[2018-12-28] MEDS ORDERED: MAGNESIUM SULFATE 2GM 50 ML IV ONE (09:30)
--- NOTE | 2018-12-28 09:34 | PDOC ---
IM PROGRESS NOTES- Subjective Subjective Patient is sedated and unable to do systems review. Objective Vitals Vital Signs Date Time Temp Pulse Resp B/P (MAP) Pulse Ox O2 Delivery O2 Flow Rate FiO2 12/28/18 08:05 99.1 93 18 136/59 (84) 99 Ventilator 99.1 Input & Output Intake and Output 12/28/18 07:00 Intake Total 2574.43 ml Output Total 6130 ml Balance -3555.57 ml IV Total 2574.43 ml Output Urine Total 4590 ml Drainage Total 1540 ml Physical Exam Physical Exam GENERAL: The patient is sedated on mechanical ventilation. Tracheostomy tube in place, eyes closed. HEENT: Partial exam. No other changes. LUNGS: Decreased breath sounds at bases. CARDIOVASCULAR: S1, S2 regular. ABDOMEN: The patient is status post surgery with dressing in place. Bowel sounds hyperactive. EXTREMITIES: 2-3 + edema. The patient also has anasarca. CENTRAL NERVOUS SYSTEM: Sedated. Labs Laboratory Tests Test 12/26/18 12:27 12/26/18 18:11 12/26/18 22:04 12/26/18 23:52 Glucose (Fingerstick) 187 mg/dL (70-99) 175 mg/dL (70-99) 185 mg/dL (70-99) Potassium Level 3.9 mmol/L (3.5-5.1) Test 12/27/18 05:51 12/27/18 06:05 12/27/18 09:50 12/27/18 13:14 Glucose (Fingerstick) 187 mg/dL (70-99) 214 mg/dL (70-99) White Blood Count 3.2 x10^3/uL (4.0-11.0) Red Blood Count 2.99 x10^6/uL (4.30-5.70) Hemoglobin 8.0 g/dL (13.0-17.5) Hematocrit 24.8 % (39.0-53.0) Mean Corpuscular Volume 83 fL (79-100) Mean Corpuscular Hemoglobin 27 pg (25-35) Mean Corpuscular Hemoglobin Concent 33 g/dL (31-37) Red Cell Distribution Width 19.6 % (11.5-14.5) Platelet Count 152 x10^3/uL (140-400) Neutrophils (%) (Auto) 66 % (31-73) Lymphocytes (%) (Auto) 16 % (24-48) Monocytes (%) (Auto) 14 % (0-9) Eosinophils (%) (Auto) 3 % (0-3) Basophils (%) (Auto) 1 % (0-3) Neutrophils # (Auto) 2.1 x10^3uL (1.8-7.7) Lymphocytes # (Auto) 0.5 x10^3/uL (1.0-4.8) Monocytes # (Auto) 0.4 x10^3/uL (0.0-1.1) Eosinophils # (Auto) 0.1 x10^3/uL (0.0-0.7) Basophils # (Auto) 0.0 x10^3/uL (0.0-0.2) Sodium Level 136 mmol/L (136-145) Potassium Level 3.8 mmol/L (3.5-5.1) Chloride Level 102 mmol/L (98-107) Carbon Dioxide Level 33 mmol/L (21-32) Anion Gap 1 (6-14) Blood Urea Nitrogen 13 mg/dL (8-26) Creatinine 0.4 mg/dL (0.7-1.3) Estimated GFR (Cockcroft-Gault) 220.9 BUN/Creatinine Ratio 33 (6-20) Glucose Level 222 mg/dL (70-99) Calcium Level 7.4 mg/dL (8.5-10.1) Magnesium Level 1.7 mg/dL (1.8-2.4) Total Bilirubin 0.5 mg/dL (0.2-1.0) Aspartate Amino Transf (AST/SGOT) 11 U/L (15-37) Alanine Aminotransferase (ALT/SGPT) 8 U/L (16-63) Alkaline Phosphatase 113 U/L (46-116) Total Protein 4.2 g/dL (6.4-8.2) Albumin 1.5 g/dL (3.4-5.0) Albumin/Globulin Ratio 0.6 (1.0-1.7) O2 Saturation 95 % (92-99) Arterial Blood pH 7.44 (7.35-7.45) Arterial Blood pCO2 at Patient Temp 49 mmHg (35-46) Arterial Blood pO2 at Patient Temp 77 mmHg (75-108) Arterial Blood HCO3 33 mmol/L (21-28) Arterial Blood Base Excess 8 mmol/L (-3-3) FiO2 40 Test 12/27/18 17:37 12/27/18 23:41 12/28/18 00:06 12/28/18 05:40 Glucose (Fingerstick) 200 mg/dL (70-99) 159 mg/dL (70-99) 177 mg/dL (70-99) 167 mg/dL (70-99) Test 12/28/18 05:50 12/28/18 09:00 White Blood Count 3.7 x10^3/uL (4.0-11.0) Red Blood Count 3.04 x10^6/uL (4.30-5.70) Hemoglobin 8.1 g/dL (13.0-17.5) Hematocrit 25.5 % (39.0-53.0) Mean Corpuscular Volume 84 fL (79-100) Mean Corpuscular Hemoglobin 27 pg (25-35) Mean Corpuscular Hemoglobin Concent 32 g/dL (31-37) Red Cell Distribution Width 19.5 % (11.5-14.5) Platelet Count 184 x10^3/uL (140-400) Neutrophils (%) (Auto) 63 % (31-73) Lymphocytes (%) (Auto) 19 % (24-48) Monocytes (%) (Auto) 14 % (0-9) Eosinophils (%) (Auto) 3 % (0-3) Basophils (%) (Auto) 1 % (0-3) Neutrophils # (Auto) 2.3 x10^3uL (1.8-7.7) Lymphocytes # (Auto) 0.7 x10^3/uL (1.0-4.8) Monocytes # (Auto) 0.5 x10^3/uL (0.0-1.1) Eosinophils # (Auto) 0.1 x10^3/uL (0.0-0.7) Basophils # (Auto) 0.0 x10^3/uL (0.0-0.2) Sodium Level 141 mmol/L (136-145) Potassium Level 4.2 mmol/L (3.5-5.1) Chloride Level 103 mmol/L (98-107) Carbon Dioxide Level 36 mmol/L (21-32) Anion Gap 2 (6-14) Blood Urea Nitrogen 11 mg/dL (8-26) Creatinine 0.5 mg/dL (0.7-1.3) Estimated GFR (Cockcroft-Gault) 170.8 BUN/Creatinine Ratio 22 (6-20) Glucose Level 182 mg/dL (70-99) Calcium Level 7.8 mg/dL (8.5-10.1) Phosphorus Level 4.0 mg/dL (2.6-4.7) Magnesium Level 1.6 mg/dL (1.8-2.4) Total Bilirubin 0.6 mg/dL (0.2-1.0) Aspartate Amino Transf (AST/SGOT) 13 U/L (15-37) Alanine Aminotransferase (ALT/SGPT) 11 U/L (16-63) Alkaline Phosphatase 135 U/L (46-116) Total Protein 4.5 g/dL (6.4-8.2) Albumin 1.7 g/dL (3.4-5.0) Albumin/Globulin Ratio 0.6 (1.0-1.7) O2 Saturation 96 % (92-99) Arterial Blood pH 7.41 (7.35-7.45) Arterial Blood pCO2 at Patient Temp 58 mmHg (35-46) Arterial Blood pO2 at Patient Temp 83 mmHg (75-108) Arterial Blood HCO3 36 mmol/L (21-28) Arterial Blood Base Excess 10 mmol/L (-3-3) FiO2 50 Laboratory Tests Test 12/27/18 09:50 12/27/18 13:14 12/27/18 17:37 12/27/18 23:41 O2 Saturation 95 % (92-99) Arterial Blood pH 7.44 (7.35-7.45) Arterial Blood pCO2 at Patient Temp 49 mmHg (35-46) Arterial Blood pO2 at Patient Temp 77 mmHg (75-108) Arterial Blood HCO3 33 mmol/L (21-28) Arterial Blood Base Excess 8 mmol/L (-3-3) FiO2 40 Glucose (Fingerstick) 214 mg/dL (70-99) 200 mg/dL (70-99) 159 mg/dL (70-99) Test 12/28/18 00:06 12/28/18 05:40 12/28/18 05:50 12/28/18 09:00 Glucose (Fingerstick) 177 mg/dL (70-99) 167 mg/dL (70-99) White Blood Count 3.7 x10^3/uL (4.0-11.0) Red Blood Count 3.04 x10^6/uL (4.30-5.70) Hemoglobin 8.1 g/dL (13.0-17.5) Hematocrit 25.5 % (39.0-53.0) Mean Corpuscular Volume 84 fL (79-100) Mean Corpuscular Hemoglobin 27 pg (25-35) Mean Corpuscular Hemoglobin Concent 32 g/dL (31-37) Red Cell Distribution Width 19.5 % (11.5-14.5) Platelet Count 184 x10^3/uL (140-400) Neutrophils (%) (Auto) 63 % (31-73) Lymphocytes (%) (Auto) 19 % (24-48) Monocytes (%) (Auto) 14 % (0-9) Eosinophils (%) (Auto) 3 % (0-3) Basophils (%) (Auto) 1 % (0-3) Neutrophils # (Auto) 2.3 x10^3uL (1.8-7.7) Lymphocytes # (Auto) 0.7 x10^3/uL (1.0-4.8) Monocytes # (Auto) 0.5 x10^3/uL (0.0-1.1) Eosinophils # (Auto) 0.1 x10^3/uL (0.0-0.7) Basophils # (Auto) 0.0 x10^3/uL (0.0-0.2) Sodium Level 141 mmol/L (136-145) Potassium Level 4.2 mmol/L (3.5-5.1) Chloride Level 103 mmol/L (98-107) Carbon Dioxide Level 36 mmol/L (21-32) Anion Gap 2 (6-14) Blood Urea Nitrogen 11 mg/dL (8-26) Creatinine 0.5 mg/dL (0.7-1.3) Estimated GFR (Cockcroft-Gault) 170.8 BUN/Creatinine Ratio 22 (6-20) Glucose Level 182 mg/dL (70-99) Calcium Level 7.8 mg/dL (8.5-10.1) Phosphorus Level 4.0 mg/dL (2.6-4.7) Magnesium Level 1.6 mg/dL (1.8-2.4) Total Bilirubin 0.6 mg/dL (0.2-1.0) Aspartate Amino Transf (AST/SGOT) 13 U/L (15-37) Alanine Aminotransferase (ALT/SGPT) 11 U/L (16-63) Alkaline Phosphatase 135 U/L (46-116) Total Protein 4.5 g/dL (6.4-8.2) Albumin 1.7 g/dL (3.4-5.0) Albumin/Globulin Ratio 0.6 (1.0-1.7) O2 Saturation 96 % (92-99) Arterial Blood pH 7.41 (7.35-7.45) Arterial Blood pCO2 at Patient Temp 58 mmHg (35-46) Arterial Blood pO2 at Patient Temp 83 mmHg (75-108) Arterial Blood HCO3 36 mmol/L (21-28) Arterial Blood Base Excess 10 mmol/L (-3-3) FiO2 50 Meds Current Medications Furosemide (Lasix) 40 mg 1X ONCE IVP Last administered on 12/27/18at 10:34; Start 12/27/18 at 10:30; Stop 12/27/18 at 10:31; Status DC Magnesium Sulfate 50 ml @ 25 mls/hr 1X ONCE IV ; Start 12/28/18 at 09:30; Stop 12/28/18 at 11:29 Magnesium Sulfate/ Dextrose 100 ml @ 100 mls/hr 1X ONCE IV Last administered on 12/27/18at 13:16; Start 12/27/18 at 14:00; Stop 12/27/18 at 14:59; Status DC Sodium Chloride 110 meq/Sodium Acetate 12 meq/ Potassium Chloride 60 meq/ Potassium Phosphate 20 mmol/ Magnesium Sulfate 25 meq/Calcium Gluconate 9.3 meq / Multivitamins 10 ml/Chromium/ Copper/Manganese/ Seleni/Zn 1 ml/ Insulin Human Regular 85 unit/ Total Parenteral Nutrition/Amino Acids/Dextro... 1,800 ml @ 75 mls/hr TPN CONT IV Last administered on 12/27/18at 21:58; Start 12/27/18 at 22:00; Stop 12/28/18 at 21:59 Assessment Assessment 1. Acute respiratory failure. 2. Acute hypotension, on dopamine. The patient's urine output is stable, but the patient has a significant fluid retention due to third spacing. 3. Acute pancreatitis with pseudocyst. 4. Systolic congestive heart failure. 5. Coronary artery disease, history of coronary artery bypass graft x 5. 6. Acute metabolic encephalopathy. 7. History of fall with nasal fracture. 8. History of atrial fibrillation. 9. Hyperlipidemia. 10. Severe protein-calorie malnutrition. 11. Anemia. 12. Obesity hypoventilation syndrome, with likely obstructive sleep apnea, has been on BiPAP at night. PLAN: The patient is retaining significant amount of fluids, so I will give him 1 amp of 25% albumin along with 1 unit of packed red cells as well as Lasix. Continue IV dopamine to maintain systolic blood pressure. Monitor urine output. I ordered 1 unit of packed red cells because of significant blood loss yesterday along with significant hypotension with his coronary artery disease, congestive heart failure and third spacing due to hypotension even though his hemoglobin is 7.5. We will consult Dr. Moralez for cardiology evaluation and management, Dr. Cornejo for infectious disease evaluation and management and Dr. Romero has been consulted for pulmonary evaluation and management. Continue management of the mechanical ventilation. Continue to hold some of the previous medications. We will start TPN this evening and continue to monitor blood sugars every 6 hours and regular insulin to TPN and also start him on IV Protonix. Prognosis of this patient is very poor. For details, please refer to the orders. I will also consult Dr. Giraldo for GI evaluation and management. Fluid retention- ,give 1 amp of the IV albumin as well as 40 mg of IV Lasix. Consult Dr. Ken for management of fluid retention. He has severe anasarca.He has decreased drainage in the MISTY drain. He put out a lot of the urine yesterday and has lost 6 pounds. Severe protein calorie malnutrition- continue TPN. Albumin has increased to 1.7. Give IV albumin followed by Lasix. Patient does not have bowel sounds. Continue IV TPN. Diabetes mellitus type 2- not controlled. Continue regular insulin in TPN as well as sliding scale insulin. Hypokalemia-better. Hypomagnesemia- replace. Magnesium is 1.6. Replace Discussed with patient's brother Weston. Hypotension- resolved off dopamine . Coronary artery disease- echocardiogram shows ejection fraction of 60%. Acute cholecystitis off. IV Zosyn. On Merrem and Zyvox Anemia- hemoglobin is 8.1 Plan Plan For more details regarding further plans, please refer to the orders. REHANA CASE MD Dec 28, 2018 09:34
--- NOTE | 2018-12-28 11:34 | PDOC ---
Objective: Objective: Reviewed w/ RN - still w/ significant MISTY output. On TPN. Vital Signs: Vital Signs Date Time Temp Pulse Resp B/P (MAP) Pulse Ox O2 Delivery O2 Flow Rate FiO2 12/28/18 11:00 85 22 112/50 (70) 94 Ventilator 12/28/18 10:00 99.0 99.0 Labs: Laboratory Tests Test 12/27/18 13:14 12/27/18 17:37 12/27/18 23:41 12/28/18 00:06 Glucose (Fingerstick) 214 mg/dL 200 mg/dL 159 mg/dL 177 mg/dL Test 12/28/18 05:40 12/28/18 05:50 12/28/18 09:00 Glucose (Fingerstick) 167 mg/dL White Blood Count 3.7 x10^3/uL Red Blood Count 3.04 x10^6/uL Hemoglobin 8.1 g/dL Hematocrit 25.5 % Mean Corpuscular Volume 84 fL Mean Corpuscular Hemoglobin 27 pg Mean Corpuscular Hemoglobin Concent 32 g/dL Red Cell Distribution Width 19.5 % Platelet Count 184 x10^3/uL Neutrophils (%) (Auto) 63 % Lymphocytes (%) (Auto) 19 % Monocytes (%) (Auto) 14 % Eosinophils (%) (Auto) 3 % Basophils (%) (Auto) 1 % Neutrophils # (Auto) 2.3 x10^3uL Lymphocytes # (Auto) 0.7 x10^3/uL Monocytes # (Auto) 0.5 x10^3/uL Eosinophils # (Auto) 0.1 x10^3/uL Basophils # (Auto) 0.0 x10^3/uL Sodium Level 141 mmol/L Potassium Level 4.2 mmol/L Chloride Level 103 mmol/L Carbon Dioxide Level 36 mmol/L Anion Gap 2 Blood Urea Nitrogen 11 mg/dL Creatinine 0.5 mg/dL Estimated GFR (Cockcroft-Gault) 170.8 BUN/Creatinine Ratio 22 Glucose Level 182 mg/dL Calcium Level 7.8 mg/dL Phosphorus Level 4.0 mg/dL Magnesium Level 1.6 mg/dL Total Bilirubin 0.6 mg/dL Aspartate Amino Transf (AST/SGOT) 13 U/L Alanine Aminotransferase (ALT/SGPT) 11 U/L Alkaline Phosphatase 135 U/L Total Protein 4.5 g/dL Albumin 1.7 g/dL Albumin/Globulin Ratio 0.6 O2 Saturation 96 % Arterial Blood pH 7.41 Arterial Blood pCO2 at Patient Temp 58 mmHg Arterial Blood pO2 at Patient Temp 83 mmHg Arterial Blood HCO3 36 mmol/L Arterial Blood Base Excess 10 mmol/L FiO2 50 ANAEROBIC-AEROBIC CULTURE Final Final report ANAEROBIC RES 1 Final Comment No anaerobic growth in 72 hours. AEROBIC CULT Final Final report AEROBIC RES 1 Final Comment No growth in 56 - 72 hours. GRAM STAIN Final Final report GRAM STAIN RES 1 Final Comment No white blood cells seen. GRAM STAIN RES 2 Final No organisms seen Imaging: CXR 12/28 IMPRESSION: 1. Stable tube positions. 2. Ongoing pleural effusions and bibasilar atelectasis/infiltrate with slight interval worsening on the right. PE: GEN: intubated LUNGS: vent HEART: RRR ABD: quiet, soft, MISTY and G tube NEURO/PSYCH: sedated A/P: Necrotizing pancreatitis s/p pancreatic pseudocystgastrostomy, post-op ileus Resp failure - intubated on TPN Anemia - improved, last transfused 12/25, on PPI Mildly elevated Alk Phos -- Continue support. KALEE ULLOA Dec 28, 2018 11:34
[2018-12-28] MEDS: TPN PER PHARMACY MC PRN (12:54)
--- NOTE | 2018-12-28 12:55 | NUR ---
Pharmacy TPN Dosing Note S: JUSTIN OLSEN is a 58 year old M Currently receiving Central Continuous TPN started B:Pertinent PMH: PANCREATITIS; Alf TPN from [facility] Height: 6 feet, 0 inches Weight: 112.180038 kg Current diet: NPO LABS: Sodium: 141 Potassium: 4.2 Chloride: 103 Calcium: 7.8 Corrected Calcium: 9.64 Magnesium: 1.6 CO2: 36 SCr: 0.5 Glucose: 159-185 Albumin: 1.7 AST: 13 ALT: 11 TPN FORMULA: TPN TYPE: Central Continuous AMINO ACIDS: 100 gm DEXTROSE: 375 gm LIPIDS: 30 gm SODIUM CHLORIDE: 110 mEq SODIUM ACETATE: 12 mEq SODIUM PHOSPHATE: mmol POTASSIUM CHLORIDE: 60 mEq POTASSIUM ACETATE: mEq POTASSIUM PHOSPHATE: 20 mmol MAGNESIUM: 25 mEq CALCIUM: 9.3 mEq INSULIN: 85 units MULTIPLE VITAMIN: 10 ml TRACE ELEMENTS: 1 ml(s) TPN PLAN: TF trial stopped, pt did not tolerate. No changes to TPN today. BG nearly on goal. Mag low, pt rec'd 2 g repletion per primary. R: Continue TPN as above. Will monitor electrolytes, glucose, and tolerance to TPN. HAYLEE KEEN [facility], 12/28/18 [id number]
[2018-12-28] MEDS ORDERED: ALBUMIN HUMAN 25% 100 ML IV ONE (13:00)
[2018-12-28] MEDS ORDERED: FUROSEMIDE 40 MG/4 ML VIAL. IVP ONE (13:00)
--- NOTE | 2018-12-28 13:40 | PDOC ---
Renal-Progress Notes Subjective Notes Notes NONE History of Present Illness Hx of present illness NO CHANGES Vitals Vitals Vital Signs Date Time Temp Pulse Resp B/P (MAP) Pulse Ox O2 Delivery O2 Flow Rate FiO2 12/28/18 13:01 95 Ventilator 12/28/18 12:00 81 19 127/53 (77) 12/28/18 10:00 99.0 99.0 Weight Weight [ ] I.O. Intake and Output Intake and Output 12/28/18 07:00 Intake Total 2574.43 ml Output Total 6130 ml Balance -3555.57 ml IV Total 2574.43 ml Output Urine Total 4590 ml Drainage Total 1540 ml Labs Labs Laboratory Tests Test 12/27/18 17:37 12/27/18 23:41 12/28/18 00:06 12/28/18 05:40 Glucose (Fingerstick) 200 mg/dL (70-99) 159 mg/dL (70-99) 177 mg/dL (70-99) 167 mg/dL (70-99) Test 12/28/18 05:50 12/28/18 09:00 12/28/18 12:05 White Blood Count 3.7 x10^3/uL (4.0-11.0) Red Blood Count 3.04 x10^6/uL (4.30-5.70) Hemoglobin 8.1 g/dL (13.0-17.5) Hematocrit 25.5 % (39.0-53.0) Mean Corpuscular Volume 84 fL (79-100) Mean Corpuscular Hemoglobin 27 pg (25-35) Mean Corpuscular Hemoglobin Concent 32 g/dL (31-37) Red Cell Distribution Width 19.5 % (11.5-14.5) Platelet Count 184 x10^3/uL (140-400) Neutrophils (%) (Auto) 63 % (31-73) Lymphocytes (%) (Auto) 19 % (24-48) Monocytes (%) (Auto) 14 % (0-9) Eosinophils (%) (Auto) 3 % (0-3) Basophils (%) (Auto) 1 % (0-3) Neutrophils # (Auto) 2.3 x10^3uL (1.8-7.7) Lymphocytes # (Auto) 0.7 x10^3/uL (1.0-4.8) Monocytes # (Auto) 0.5 x10^3/uL (0.0-1.1) Eosinophils # (Auto) 0.1 x10^3/uL (0.0-0.7) Basophils # (Auto) 0.0 x10^3/uL (0.0-0.2) Sodium Level 141 mmol/L (136-145) Potassium Level 4.2 mmol/L (3.5-5.1) Chloride Level 103 mmol/L (98-107) Carbon Dioxide Level 36 mmol/L (21-32) Anion Gap 2 (6-14) Blood Urea Nitrogen 11 mg/dL (8-26) Creatinine 0.5 mg/dL (0.7-1.3) Estimated GFR (Cockcroft-Gault) 170.8 BUN/Creatinine Ratio 22 (6-20) Glucose Level 182 mg/dL (70-99) Calcium Level 7.8 mg/dL (8.5-10.1) Phosphorus Level 4.0 mg/dL (2.6-4.7) Magnesium Level 1.6 mg/dL (1.8-2.4) Total Bilirubin 0.6 mg/dL (0.2-1.0) Aspartate Amino Transf (AST/SGOT) 13 U/L (15-37) Alanine Aminotransferase (ALT/SGPT) 11 U/L (16-63) Alkaline Phosphatase 135 U/L (46-116) Total Protein 4.5 g/dL (6.4-8.2) Albumin 1.7 g/dL (3.4-5.0) Albumin/Globulin Ratio 0.6 (1.0-1.7) O2 Saturation 96 % (92-99) Arterial Blood pH 7.41 (7.35-7.45) Arterial Blood pCO2 at Patient Temp 58 mmHg (35-46) Arterial Blood pO2 at Patient Temp 83 mmHg (75-108) Arterial Blood HCO3 36 mmol/L (21-28) Arterial Blood Base Excess 10 mmol/L (-3-3) FiO2 50 Glucose (Fingerstick) 185 mg/dL (70-99) Micro Micro Microbiology 12/22/18 Anaerobic/Aerobic Culture - Final, Complete 12/22/18 Anaerobic Culture Result 1 (MELONY) - Final, Complete 12/22/18 Aerobic Culture - Final, Complete 12/22/18 Aerobic Culture Result 1 (MELONY) - Final, Complete 12/22/18 Gram Stain - Final, Complete 12/22/18 Gram Stain Result 1 (MELONY) - Final, Complete 12/22/18 Gram Stain Result 2 (MELONY) - Final, Complete Review of Systems Constitutional: yes: other (UNABLE TO OBTAIN) Physical Exam General Appearance: other (SEDATED) Skin: warm Respiratory: decreased breath sounds Heart: S1S2 Abdomen: soft, bowel sounds present Genitourinary: bladder flat Extremities: pulses present Neurology: other (sedated) Assessment Assessment IMP PANCREATIC PSEUDOCYST RESECTION MALNUTRITION EDEMA DUE TO 3RD SPACING LOW K AND MAG DM II ETOH ABUSE HX PLAN AGREE WITH IV LASIX TODAY CONT TPN FOR NOW CONT WITH K AND MAG REPLACEMENT PROTOCOL ANTIBIOTICS VENT SUPPORT SUPPORTIVE CARE PRESSORS NEEDED DIURESE WHEN ABLE WILL FOLLOW SARAHY BALDERAS MD Dec 28, 2018 13:40
--- NOTE | 2018-12-28 14:31 | NUR ---
SS following up with discharge planning. SS phoned and faxed clinical updates to [facility], ; fax [phone]. SS will continue to follow for discharge planning.
[2018-12-28] MEDS ORDERED: ACETAMINOPHEN 650 MG SUPP.RECT. PR PRN (17:00)
[2018-12-28] MEDS: IV NORMAL SALINE 1000ML BAG 1,000 ML IV SCH (19:01)
[2018-12-28] MEDS ORDERED: TOTAL PARENTERAL NUTRITION IV SCH ×12 (22:00)
[2018-12-28] MEDS ORDERED: DEXTROSE 70% IV SCH ×12 (22:00)
[2018-12-28] MEDS ORDERED: [UNRECOGNIZED DRUG - OTHER] IV SCH ×12 (22:00)
[2018-12-28] MEDS ORDERED: AMINO ACID IV SCH ×12 (22:00)
[2018-12-29] VITALS (24 sets, daily range): BP systolic 113–166; BP diastolic 52–80
[2018-12-29] MEDS: MEROPENEM 500 MG in IV NORMAL SALINE 50ML 50 ML IV SCH ×5 (00:23→23:31)
[2018-12-29] MEDS: MIDAZOLAM 100mg/100ml NS BAG 100 ML IV PRN (00:23)
[2018-12-29] MEDS: INSULIN LISPRO 300 UNITS/3 ML INSULN.PEN. SQ SCH ×5 (00:28→23:42)
[2018-12-29 05:51] LABS: BASO % 1 % (0-3); EOS # 0.1 x10^3/uL (0.0-0.7); EOS % 3 % (0-3); HEMATOCRIT 25.7 % (39.0-53.0); HEMOGLOBIN 8.1 g/dL (13.0-17.5); LYMPH # 0.8 x10^3/uL (1.0-4.8); LYMPH % 19 % (24-48); MEAN CORPUSCULAR HEMOGLOBIN 26 pg (25-35); MEAN CORPUSCULAR HGB CONC 32 g/dL (31-37); MEAN CORPUSCULAR VOLUME 83 fL (79-100); MONO # 0.6 x10^3/uL (0.0-1.1); MONO % 15 % (0-9); NEUT # 2.7 x10^3uL (1.8-7.7); NEUT % 63 % (31-73); PLATELET COUNT 174 x10^3/uL (140-400); RED BLOOD COUNT 3.09 x10^6/uL (4.30-5.70); RED CELL DISTRIBUTION WIDTH 19.1 % (11.5-14.5); WHITE BLOOD COUNT 4.2 x10^3/uL (4.0-11.0)
[2018-12-29 06:18] LABS: ALBUMIN 1.8 g/dL (3.4-5.0); ALBUMIN/GLOBULIN RATIO 0.6 (1.0-1.7); ALK PHOS 176 U/L (46-116); ALT (SGPT) 10 U/L (16-63); AST (SGOT) 16 U/L (15-37); BLOOD UREA NITROGEN 14 mg/dL (8-26); BUN/CREATININE RATIO 47 (6-20); CALCIUM 7.8 mg/dL (8.5-10.1); CARBON DIOXIDE 37 mmol/L (21-32); CHLORIDE 102 mmol/L (98-107); CREATININE 0.3 mg/dL (0.7-1.3); GFR > 300.0; GLUCOSE 218 mg/dL (70-99); MAGNESIUM 1.8 mg/dL (1.8-2.4); PHOSPHORUS 3.5 mg/dL (2.6-4.7); POTASSIUM 4.3 mmol/L (3.5-5.1); SODIUM 137 mmol/L (136-145); TOTAL BILIRUBIN 0.5 mg/dL (0.2-1.0); TOTAL PROTEIN 4.8 g/dL (6.4-8.2)
--- NOTE | 2018-12-29 06:46 | PDOC ---
Infectious Disease Note Subjective Subjective Intubated/sedated ROS ROS Unable to obtain Vital Sign Vital Signs Vital Signs Date Time Temp Pulse Resp B/P (MAP) Pulse Ox O2 Delivery O2 Flow Rate FiO2 12/29/18 06:00 75 16 124/64 (84) 97 Ventilator 12/29/18 04:00 99.8 99.8 Physical Exam PHYSICAL EXAM GENERAL: Intubated, sedated HEENT: PERRL, ETT LUNGS: Mechanical breath sounds . HEART: S1 and S2. No gallops or murmurs. ABDOMEN: Obese, soft, BS quiet, MISTY - sanguinous drainage, G-tube in place, midline incision well-approx, blister - better. min erythema : Pepe in place, scrotal swelling EXTREMITIES: Generalized edema. DERMATOLOGICAL: Multiple tattoos. Warm and dry. No generalized rash. CENTRAL NERVOUS SYSTEM: Sedated and intubated. RUE-PICC ( POA), RIJ ( 12/22) and LUE art-lines without signs of any complications Labs Lab Laboratory Tests Test 12/28/18 09:00 12/28/18 12:05 12/28/18 19:03 12/29/18 00:25 O2 Saturation 96 % (92-99) Arterial Blood pH 7.41 (7.35-7.45) Arterial Blood pCO2 at Patient Temp 58 mmHg (35-46) Arterial Blood pO2 at Patient Temp 83 mmHg (75-108) Arterial Blood HCO3 36 mmol/L (21-28) Arterial Blood Base Excess 10 mmol/L (-3-3) FiO2 50 Glucose (Fingerstick) 185 mg/dL (70-99) 205 mg/dL (70-99) 203 mg/dL (70-99) Test 12/29/18 05:30 White Blood Count 4.2 x10^3/uL (4.0-11.0) Red Blood Count 3.09 x10^6/uL (4.30-5.70) Hemoglobin 8.1 g/dL (13.0-17.5) Hematocrit 25.7 % (39.0-53.0) Mean Corpuscular Volume 83 fL (79-100) Mean Corpuscular Hemoglobin 26 pg (25-35) Mean Corpuscular Hemoglobin Concent 32 g/dL (31-37) Red Cell Distribution Width 19.1 % (11.5-14.5) Platelet Count 174 x10^3/uL (140-400) Neutrophils (%) (Auto) 63 % (31-73) Lymphocytes (%) (Auto) 19 % (24-48) Monocytes (%) (Auto) 15 % (0-9) Eosinophils (%) (Auto) 3 % (0-3) Basophils (%) (Auto) 1 % (0-3) Neutrophils # (Auto) 2.7 x10^3uL (1.8-7.7) Lymphocytes # (Auto) 0.8 x10^3/uL (1.0-4.8) Monocytes # (Auto) 0.6 x10^3/uL (0.0-1.1) Eosinophils # (Auto) 0.1 x10^3/uL (0.0-0.7) Basophils # (Auto) 0.0 x10^3/uL (0.0-0.2) Sodium Level 137 mmol/L (136-145) Potassium Level 4.3 mmol/L (3.5-5.1) Chloride Level 102 mmol/L (98-107) Carbon Dioxide Level 37 mmol/L (21-32) Anion Gap (6-14) Blood Urea Nitrogen 14 mg/dL (8-26) Creatinine 0.3 mg/dL (0.7-1.3) Estimated GFR (Cockcroft-Gault) > 300.0 BUN/Creatinine Ratio 47 (6-20) Glucose Level 218 mg/dL (70-99) Calcium Level 7.8 mg/dL (8.5-10.1) Phosphorus Level 3.5 mg/dL (2.6-4.7) Magnesium Level 1.8 mg/dL (1.8-2.4) Total Bilirubin 0.5 mg/dL (0.2-1.0) Aspartate Amino Transf (AST/SGOT) 16 U/L (15-37) Alanine Aminotransferase (ALT/SGPT) 10 U/L (16-63) Alkaline Phosphatase 176 U/L (46-116) Total Protein 4.8 g/dL (6.4-8.2) Albumin 1.8 g/dL (3.4-5.0) Albumin/Globulin Ratio 0.6 (1.0-1.7) Micro Microbiology 12/22/18 Anaerobic/Aerobic Culture - Preliminary, Resulted 3/26/19 Anaerobic Culture Result 1 (MELONY) - Preliminary, Resulted 12/22/18 Aerobic Culture - Final, Resulted 12/22/18 Aerobic Culture Result 1 (MELONY) - Final, Resulted 12/22/18 Gram Stain - Final, Resulted 12/22/18 Gram Stain Result 1 (MELONY) - Final, Resulted 12/22/18 Gram Stain Result 2 (MELONY) - Final, Resulted Objective Assessment Low grade temp times one. sputum cult pending Severe cholecystitis, status post cholecystectomy, 12/22/2018. Large pancreatic pseudocyst, status post open pancreatic pseudocyst gastrostomy , open cholecystectomy and gastrostomy tube placement on 12/22/2018. Leucopenia , Mild thrombocytopenia ? cult neg, ? drug induced, though Zyvox was started on 12/24 so unlikely - better today Anemia, likely postop blood loss.S/P PRBC transfusion, 12/25 Acute respiratory failure postop intubated. History of heavy alcohol dependence. Systolic congestive heart failure. Coronary artery disease, status post coronary artery bypass graft. Acute metabolic encephalopathy. History of fall with nasal fracture. History of atrial fibrillation. Severe protein-calorie malnutrition. Obesity hypoventilation syndrome, likely obstructive sleep apnea, has bilevel positive airway pressure at night. Plan Plan of Care Cont Merrem since 12/25 Add lipase/procalcitonin to this am labs D/c IJ IF spikes will recult and begin Vanc/Micafungin F/u sputum cult Monitor labs/temp Supportive care. Critically ill D/w nursing CHET WOODSON MD Dec 29, 2018 06:46
--- NOTE | 2018-12-29 07:00 | RAD ---
One view chest HISTORY: Follow-up respiratory failure AP view chest 6:06 AM COMPARISON: December 28, 2018 The heart is top normal limits in size. The pulmonary vessels appear normal. There is hazy opacity in the lower lungs and obscuration diaphragm. The endotracheal tube right jugular line and right PICC are unchanged. Median sternotomy wires are again seen. IMPRESSION: [id number] effusions with adjacent infiltrates. No change. Electronically signed by: Caden Hays III, MD (12/29/2018 6:58 AM) [id number]
[2018-12-29] MEDS: PANTOPRAZOLE IV PUSH 40 MG VIAL. IVP SCH (07:23)
[2018-12-29 08:22] LABS: BASE EXCESS ABG 11 mmol/L (-3-3); HCO3 ABG 37 mmol/L (21-28); PO2 ABG 95 mmHg (75-108); SAT O2 ABG 97 % (92-99)
[2018-12-29 08:26] LABS: FIO2 ABG 50; PCO2 ABG 62 mmHg (35-46)
--- NOTE | 2018-12-29 08:40 | PDOC ---
SURGICAL PROGRESS NOTE Subjective off pressors intubated Vital Signs Vital Signs Date Time Temp Pulse Resp B/P (MAP) Pulse Ox O2 Delivery O2 Flow Rate FiO2 12/29/18 08:00 76 16 113/65 (81) 97 Ventilator 12/29/18 07:00 98.0 98.0 I&O Intake and Output 12/29/18 07:00 Intake Total 2526.1 ml Output Total 5483 ml Balance -2956.9 ml IV Total 2526.1 ml Output Urine Total 4230 ml Drainage Total 1253 ml PATIENT HAS A MAGAÑA: Yes HEENT: Other (intubated ) Abdomen: Soft, Other (drain serous, g tube in place, incision healing ) Labs Laboratory Tests Test 12/27/18 09:50 12/27/18 13:14 12/27/18 17:37 12/27/18 23:41 O2 Saturation 95 % (92-99) Arterial Blood pH 7.44 (7.35-7.45) Arterial Blood pCO2 at Patient Temp 49 mmHg (35-46) Arterial Blood pO2 at Patient Temp 77 mmHg (75-108) Arterial Blood HCO3 33 mmol/L (21-28) Arterial Blood Base Excess 8 mmol/L (-3-3) FiO2 40 Glucose (Fingerstick) 214 mg/dL (70-99) 200 mg/dL (70-99) 159 mg/dL (70-99) Test 12/28/18 00:06 12/28/18 05:40 12/28/18 05:50 12/28/18 09:00 Glucose (Fingerstick) 177 mg/dL (70-99) 167 mg/dL (70-99) White Blood Count 3.7 x10^3/uL (4.0-11.0) Red Blood Count 3.04 x10^6/uL (4.30-5.70) Hemoglobin 8.1 g/dL (13.0-17.5) Hematocrit 25.5 % (39.0-53.0) Mean Corpuscular Volume 84 fL (79-100) Mean Corpuscular Hemoglobin 27 pg (25-35) Mean Corpuscular Hemoglobin Concent 32 g/dL (31-37) Red Cell Distribution Width 19.5 % (11.5-14.5) Platelet Count 184 x10^3/uL (140-400) Neutrophils (%) (Auto) 63 % (31-73) Lymphocytes (%) (Auto) 19 % (24-48) Monocytes (%) (Auto) 14 % (0-9) Eosinophils (%) (Auto) 3 % (0-3) Basophils (%) (Auto) 1 % (0-3) Neutrophils # (Auto) 2.3 x10^3uL (1.8-7.7) Lymphocytes # (Auto) 0.7 x10^3/uL (1.0-4.8) Monocytes # (Auto) 0.5 x10^3/uL (0.0-1.1) Eosinophils # (Auto) 0.1 x10^3/uL (0.0-0.7) Basophils # (Auto) 0.0 x10^3/uL (0.0-0.2) Sodium Level 141 mmol/L (136-145) Potassium Level 4.2 mmol/L (3.5-5.1) Chloride Level 103 mmol/L (98-107) Carbon Dioxide Level 36 mmol/L (21-32) Anion Gap 2 (6-14) Blood Urea Nitrogen 11 mg/dL (8-26) Creatinine 0.5 mg/dL (0.7-1.3) Estimated GFR (Cockcroft-Gault) 170.8 BUN/Creatinine Ratio 22 (6-20) Glucose Level 182 mg/dL (70-99) Calcium Level 7.8 mg/dL (8.5-10.1) Phosphorus Level 4.0 mg/dL (2.6-4.7) Magnesium Level 1.6 mg/dL (1.8-2.4) Total Bilirubin 0.6 mg/dL (0.2-1.0) Aspartate Amino Transf (AST/SGOT) 13 U/L (15-37) Alanine Aminotransferase (ALT/SGPT) 11 U/L (16-63) Alkaline Phosphatase 135 U/L (46-116) Total Protein 4.5 g/dL (6.4-8.2) Albumin 1.7 g/dL (3.4-5.0) Albumin/Globulin Ratio 0.6 (1.0-1.7) O2 Saturation 96 % (92-99) Arterial Blood pH 7.41 (7.35-7.45) Arterial Blood pCO2 at Patient Temp 58 mmHg (35-46) Arterial Blood pO2 at Patient Temp 83 mmHg (75-108) Arterial Blood HCO3 36 mmol/L (21-28) Arterial Blood Base Excess 10 mmol/L (-3-3) FiO2 50 Test 12/28/18 12:05 12/28/18 19:03 12/29/18 00:25 12/29/18 05:30 Glucose (Fingerstick) 185 mg/dL (70-99) 205 mg/dL (70-99) 203 mg/dL (70-99) White Blood Count 4.2 x10^3/uL (4.0-11.0) Red Blood Count 3.09 x10^6/uL (4.30-5.70) Hemoglobin 8.1 g/dL (13.0-17.5) Hematocrit 25.7 % (39.0-53.0) Mean Corpuscular Volume 83 fL (79-100) Mean Corpuscular Hemoglobin 26 pg (25-35) Mean Corpuscular Hemoglobin Concent 32 g/dL (31-37) Red Cell Distribution Width 19.1 % (11.5-14.5) Platelet Count 174 x10^3/uL (140-400) Neutrophils (%) (Auto) 63 % (31-73) Lymphocytes (%) (Auto) 19 % (24-48) Monocytes (%) (Auto) 15 % (0-9) Eosinophils (%) (Auto) 3 % (0-3) Basophils (%) (Auto) 1 % (0-3) Neutrophils # (Auto) 2.7 x10^3uL (1.8-7.7) Lymphocytes # (Auto) 0.8 x10^3/uL (1.0-4.8) Monocytes # (Auto) 0.6 x10^3/uL (0.0-1.1) Eosinophils # (Auto) 0.1 x10^3/uL (0.0-0.7) Basophils # (Auto) 0.0 x10^3/uL (0.0-0.2) Sodium Level 137 mmol/L (136-145) Potassium Level 4.3 mmol/L (3.5-5.1) Chloride Level 102 mmol/L (98-107) Carbon Dioxide Level 37 mmol/L (21-32) Anion Gap (6-14) Blood Urea Nitrogen 14 mg/dL (8-26) Creatinine 0.3 mg/dL (0.7-1.3) Estimated GFR (Cockcroft-Gault) > 300.0 BUN/Creatinine Ratio 47 (6-20) Glucose Level 218 mg/dL (70-99) Calcium Level 7.8 mg/dL (8.5-10.1) Phosphorus Level 3.5 mg/dL (2.6-4.7) Magnesium Level 1.8 mg/dL (1.8-2.4) Total Bilirubin 0.5 mg/dL (0.2-1.0) Aspartate Amino Transf (AST/SGOT) 16 U/L (15-37) Alanine Aminotransferase (ALT/SGPT) 10 U/L (16-63) Alkaline Phosphatase 176 U/L (46-116) Total Protein 4.8 g/dL (6.4-8.2) Albumin 1.8 g/dL (3.4-5.0) Albumin/Globulin Ratio 0.6 (1.0-1.7) Lipase 115 U/L (73-393) Procalcitonin 0.17 ng/mL (0.00-0.10) Test 12/29/18 05:32 12/29/18 08:15 Glucose (Fingerstick) 210 mg/dL (70-99) O2 Saturation 97 % (92-99) Arterial Blood pH 7.39 (7.35-7.45) Arterial Blood pCO2 at Patient Temp 62 mmHg (35-46) Arterial Blood pO2 at Patient Temp 95 mmHg (75-108) Arterial Blood HCO3 37 mmol/L (21-28) Arterial Blood Base Excess 11 mmol/L (-3-3) FiO2 50 Laboratory Tests Test 12/28/18 09:00 12/28/18 12:05 12/28/18 19:03 12/29/18 00:25 O2 Saturation 96 % (92-99) Arterial Blood pH 7.41 (7.35-7.45) Arterial Blood pCO2 at Patient Temp 58 mmHg (35-46) Arterial Blood pO2 at Patient Temp 83 mmHg (75-108) Arterial Blood HCO3 36 mmol/L (21-28) Arterial Blood Base Excess 10 mmol/L (-3-3) FiO2 50 Glucose (Fingerstick) 185 mg/dL (70-99) 205 mg/dL (70-99) 203 mg/dL (70-99) Test 12/29/18 05:30 12/29/18 05:32 12/29/18 08:15 White Blood Count 4.2 x10^3/uL (4.0-11.0) Red Blood Count 3.09 x10^6/uL (4.30-5.70) Hemoglobin 8.1 g/dL (13.0-17.5) Hematocrit 25.7 % (39.0-53.0) Mean Corpuscular Volume 83 fL (79-100) Mean Corpuscular Hemoglobin 26 pg (25-35) Mean Corpuscular Hemoglobin Concent 32 g/dL (31-37) Red Cell Distribution Width 19.1 % (11.5-14.5) Platelet Count 174 x10^3/uL (140-400) Neutrophils (%) (Auto) 63 % (31-73) Lymphocytes (%) (Auto) 19 % (24-48) Monocytes (%) (Auto) 15 % (0-9) Eosinophils (%) (Auto) 3 % (0-3) Basophils (%) (Auto) 1 % (0-3) Neutrophils # (Auto) 2.7 x10^3uL (1.8-7.7) Lymphocytes # (Auto) 0.8 x10^3/uL (1.0-4.8) Monocytes # (Auto) 0.6 x10^3/uL (0.0-1.1) Eosinophils # (Auto) 0.1 x10^3/uL (0.0-0.7) Basophils # (Auto) 0.0 x10^3/uL (0.0-0.2) Sodium Level 137 mmol/L (136-145) Potassium Level 4.3 mmol/L (3.5-5.1) Chloride Level 102 mmol/L (98-107) Carbon Dioxide Level 37 mmol/L (21-32) Anion Gap (6-14) Blood Urea Nitrogen 14 mg/dL (8-26) Creatinine 0.3 mg/dL (0.7-1.3) Estimated GFR (Cockcroft-Gault) > 300.0 BUN/Creatinine Ratio 47 (6-20) Glucose Level 218 mg/dL (70-99) Calcium Level 7.8 mg/dL (8.5-10.1) Phosphorus Level 3.5 mg/dL (2.6-4.7) Magnesium Level 1.8 mg/dL (1.8-2.4) Total Bilirubin 0.5 mg/dL (0.2-1.0) Aspartate Amino Transf (AST/SGOT) 16 U/L (15-37) Alanine Aminotransferase (ALT/SGPT) 10 U/L (16-63) Alkaline Phosphatase 176 U/L (46-116) Total Protein 4.8 g/dL (6.4-8.2) Albumin 1.8 g/dL (3.4-5.0) Albumin/Globulin Ratio 0.6 (1.0-1.7) Lipase 115 U/L (73-393) Procalcitonin 0.17 ng/mL (0.00-0.10) Glucose (Fingerstick) 210 mg/dL (70-99) O2 Saturation 97 % (92-99) Arterial Blood pH 7.39 (7.35-7.45) Arterial Blood pCO2 at Patient Temp 62 mmHg (35-46) Arterial Blood pO2 at Patient Temp 95 mmHg (75-108) Arterial Blood HCO3 37 mmol/L (21-28) Arterial Blood Base Excess 11 mmol/L (-3-3) FiO2 50 Assessment/Plan supportive measures MAIKOL MORRELL MEDICAL TECHNOLOGIST PRN Dec 29, 2018 08:40
[2018-12-29] MEDS: MORPHINE SULFATE/PF 30 ML IV PRN (10:04)
--- NOTE | 2018-12-29 10:21 | PDOC ---
IM PROGRESS NOTES- Subjective Subjective Patient is sedated and unable to do systems review. Objective Vitals Vital Signs Date Time Temp Pulse Resp B/P (MAP) Pulse Ox O2 Delivery O2 Flow Rate FiO2 12/29/18 10:15 95 Ventilator 12/29/18 09:00 77 16 139/67 (91) 12/29/18 07:00 98.0 98.0 Input & Output Intake and Output 12/29/18 07:00 Intake Total 2526.1 ml Output Total 5483 ml Balance -2956.9 ml IV Total 2526.1 ml Output Urine Total 4230 ml Drainage Total 1253 ml Physical Exam Physical Exam GENERAL: The patient is sedated on mechanical ventilation. Tracheostomy tube in place, eyes closed. HEENT: Partial exam. No other changes. LUNGS: Decreased breath sounds at bases. CARDIOVASCULAR: S1, S2 regular. ABDOMEN: The patient is status post surgery with dressing in place. Bowel sounds hyperactive. EXTREMITIES: 2-3 + edema. The patient also has anasarca. CENTRAL NERVOUS SYSTEM: Sedated. Labs Laboratory Tests Test 12/27/18 13:14 12/27/18 17:37 12/27/18 23:41 12/28/18 00:06 Glucose (Fingerstick) 214 mg/dL (70-99) 200 mg/dL (70-99) 159 mg/dL (70-99) 177 mg/dL (70-99) Test 12/28/18 05:40 12/28/18 05:50 12/28/18 09:00 12/28/18 12:05 Glucose (Fingerstick) 167 mg/dL (70-99) 185 mg/dL (70-99) White Blood Count 3.7 x10^3/uL (4.0-11.0) Red Blood Count 3.04 x10^6/uL (4.30-5.70) Hemoglobin 8.1 g/dL (13.0-17.5) Hematocrit 25.5 % (39.0-53.0) Mean Corpuscular Volume 84 fL (79-100) Mean Corpuscular Hemoglobin 27 pg (25-35) Mean Corpuscular Hemoglobin Concent 32 g/dL (31-37) Red Cell Distribution Width 19.5 % (11.5-14.5) Platelet Count 184 x10^3/uL (140-400) Neutrophils (%) (Auto) 63 % (31-73) Lymphocytes (%) (Auto) 19 % (24-48) Monocytes (%) (Auto) 14 % (0-9) Eosinophils (%) (Auto) 3 % (0-3) Basophils (%) (Auto) 1 % (0-3) Neutrophils # (Auto) 2.3 x10^3uL (1.8-7.7) Lymphocytes # (Auto) 0.7 x10^3/uL (1.0-4.8) Monocytes # (Auto) 0.5 x10^3/uL (0.0-1.1) Eosinophils # (Auto) 0.1 x10^3/uL (0.0-0.7) Basophils # (Auto) 0.0 x10^3/uL (0.0-0.2) Sodium Level 141 mmol/L (136-145) Potassium Level 4.2 mmol/L (3.5-5.1) Chloride Level 103 mmol/L (98-107) Carbon Dioxide Level 36 mmol/L (21-32) Anion Gap 2 (6-14) Blood Urea Nitrogen 11 mg/dL (8-26) Creatinine 0.5 mg/dL (0.7-1.3) Estimated GFR (Cockcroft-Gault) 170.8 BUN/Creatinine Ratio 22 (6-20) Glucose Level 182 mg/dL (70-99) Calcium Level 7.8 mg/dL (8.5-10.1) Phosphorus Level 4.0 mg/dL (2.6-4.7) Magnesium Level 1.6 mg/dL (1.8-2.4) Total Bilirubin 0.6 mg/dL (0.2-1.0) Aspartate Amino Transf (AST/SGOT) 13 U/L (15-37) Alanine Aminotransferase (ALT/SGPT) 11 U/L (16-63) Alkaline Phosphatase 135 U/L (46-116) Total Protein 4.5 g/dL (6.4-8.2) Albumin 1.7 g/dL (3.4-5.0) Albumin/Globulin Ratio 0.6 (1.0-1.7) O2 Saturation 96 % (92-99) Arterial Blood pH 7.41 (7.35-7.45) Arterial Blood pCO2 at Patient Temp 58 mmHg (35-46) Arterial Blood pO2 at Patient Temp 83 mmHg (75-108) Arterial Blood HCO3 36 mmol/L (21-28) Arterial Blood Base Excess 10 mmol/L (-3-3) FiO2 50 Test 12/28/18 19:03 12/29/18 00:25 12/29/18 05:30 12/29/18 05:32 Glucose (Fingerstick) 205 mg/dL (70-99) 203 mg/dL (70-99) 210 mg/dL (70-99) White Blood Count 4.2 x10^3/uL (4.0-11.0) Red Blood Count 3.09 x10^6/uL (4.30-5.70) Hemoglobin 8.1 g/dL (13.0-17.5) Hematocrit 25.7 % (39.0-53.0) Mean Corpuscular Volume 83 fL (79-100) Mean Corpuscular Hemoglobin 26 pg (25-35) Mean Corpuscular Hemoglobin Concent 32 g/dL (31-37) Red Cell Distribution Width 19.1 % (11.5-14.5) Platelet Count 174 x10^3/uL (140-400) Neutrophils (%) (Auto) 63 % (31-73) Lymphocytes (%) (Auto) 19 % (24-48) Monocytes (%) (Auto) 15 % (0-9) Eosinophils (%) (Auto) 3 % (0-3) Basophils (%) (Auto) 1 % (0-3) Neutrophils # (Auto) 2.7 x10^3uL (1.8-7.7) Lymphocytes # (Auto) 0.8 x10^3/uL (1.0-4.8) Monocytes # (Auto) 0.6 x10^3/uL (0.0-1.1) Eosinophils # (Auto) 0.1 x10^3/uL (0.0-0.7) Basophils # (Auto) 0.0 x10^3/uL (0.0-0.2) Sodium Level 137 mmol/L (136-145) Potassium Level 4.3 mmol/L (3.5-5.1) Chloride Level 102 mmol/L (98-107) Carbon Dioxide Level 37 mmol/L (21-32) Anion Gap (6-14) Blood Urea Nitrogen 14 mg/dL (8-26) Creatinine 0.3 mg/dL (0.7-1.3) Estimated GFR (Cockcroft-Gault) > 300.0 BUN/Creatinine Ratio 47 (6-20) Glucose Level 218 mg/dL (70-99) Calcium Level 7.8 mg/dL (8.5-10.1) Phosphorus Level 3.5 mg/dL (2.6-4.7) Magnesium Level 1.8 mg/dL (1.8-2.4) Total Bilirubin 0.5 mg/dL (0.2-1.0) Aspartate Amino Transf (AST/SGOT) 16 U/L (15-37) Alanine Aminotransferase (ALT/SGPT) 10 U/L (16-63) Alkaline Phosphatase 176 U/L (46-116) Total Protein 4.8 g/dL (6.4-8.2) Albumin 1.8 g/dL (3.4-5.0) Albumin/Globulin Ratio 0.6 (1.0-1.7) Lipase 115 U/L (73-393) Procalcitonin 0.17 ng/mL (0.00-0.10) Test 12/29/18 08:15 O2 Saturation 97 % (92-99) Arterial Blood pH 7.39 (7.35-7.45) Arterial Blood pCO2 at Patient Temp 62 mmHg (35-46) Arterial Blood pO2 at Patient Temp 95 mmHg (75-108) Arterial Blood HCO3 37 mmol/L (21-28) Arterial Blood Base Excess 11 mmol/L (-3-3) FiO2 50 Laboratory Tests Test 12/28/18 12:05 12/28/18 19:03 12/29/18 00:25 12/29/18 05:30 Glucose (Fingerstick) 185 mg/dL (70-99) 205 mg/dL (70-99) 203 mg/dL (70-99) White Blood Count 4.2 x10^3/uL (4.0-11.0) Red Blood Count 3.09 x10^6/uL (4.30-5.70) Hemoglobin 8.1 g/dL (13.0-17.5) Hematocrit 25.7 % (39.0-53.0) Mean Corpuscular Volume 83 fL (79-100) Mean Corpuscular Hemoglobin 26 pg (25-35) Mean Corpuscular Hemoglobin Concent 32 g/dL (31-37) Red Cell Distribution Width 19.1 % (11.5-14.5) Platelet Count 174 x10^3/uL (140-400) Neutrophils (%) (Auto) 63 % (31-73) Lymphocytes (%) (Auto) 19 % (24-48) Monocytes (%) (Auto) 15 % (0-9) Eosinophils (%) (Auto) 3 % (0-3) Basophils (%) (Auto) 1 % (0-3) Neutrophils # (Auto) 2.7 x10^3uL (1.8-7.7) Lymphocytes # (Auto) 0.8 x10^3/uL (1.0-4.8) Monocytes # (Auto) 0.6 x10^3/uL (0.0-1.1) Eosinophils # (Auto) 0.1 x10^3/uL (0.0-0.7) Basophils # (Auto) 0.0 x10^3/uL (0.0-0.2) Sodium Level 137 mmol/L (136-145) Potassium Level 4.3 mmol/L (3.5-5.1) Chloride Level 102 mmol/L (98-107) Carbon Dioxide Level 37 mmol/L (21-32) Anion Gap (6-14) Blood Urea Nitrogen 14 mg/dL (8-26) Creatinine 0.3 mg/dL (0.7-1.3) Estimated GFR (Cockcroft-Gault) > 300.0 BUN/Creatinine Ratio 47 (6-20) Glucose Level 218 mg/dL (70-99) Calcium Level 7.8 mg/dL (8.5-10.1) Phosphorus Level 3.5 mg/dL (2.6-4.7) Magnesium Level 1.8 mg/dL (1.8-2.4) Total Bilirubin 0.5 mg/dL (0.2-1.0) Aspartate Amino Transf (AST/SGOT) 16 U/L (15-37) Alanine Aminotransferase (ALT/SGPT) 10 U/L (16-63) Alkaline Phosphatase 176 U/L (46-116) Total Protein 4.8 g/dL (6.4-8.2) Albumin 1.8 g/dL (3.4-5.0) Albumin/Globulin Ratio 0.6 (1.0-1.7) Lipase 115 U/L (73-393) Procalcitonin 0.17 ng/mL (0.00-0.10) Test 12/29/18 05:32 12/29/18 08:15 Glucose (Fingerstick) 210 mg/dL (70-99) O2 Saturation 97 % (92-99) Arterial Blood pH 7.39 (7.35-7.45) Arterial Blood pCO2 at Patient Temp 62 mmHg (35-46) Arterial Blood pO2 at Patient Temp 95 mmHg (75-108) Arterial Blood HCO3 37 mmol/L (21-28) Arterial Blood Base Excess 11 mmol/L (-3-3) FiO2 50 Meds Current Medications Acetaminophen (Tylenol Supp) 650 mg PRN Q6HRS PRN [place] MILD PAIN / TEMP Last administered on 12/28/18at 17:44; Start 12/28/18 at 17:00 Albumin Human 100 ml @ 100 mls/hr 1X ONCE IV Last administered on 12/28/18at 13 :59; Start 12/28/18 at 13:00; Stop 12/28/18 at 13:59; Status DC Furosemide (Lasix) 40 mg 1X ONCE IVP Last administered on 12/28/18at 13:59; Start 12/28/18 at 13:00; Stop 12/28/18 at 13:01; Status DC Sodium Chloride 110 meq/Sodium Acetate 12 meq/ Potassium Chloride 60 meq/ Potassium Phosphate 20 mmol/ Magnesium Sulfate 25 meq/Calcium Gluconate 9.3 meq / Multivitamins 10 ml/Chromium/ Copper/Manganese/ Seleni/Zn 1 ml/ Insulin Human Regular 85 unit/ Total Parenteral Nutrition/Amino Acids/Dextro... 1,800 ml @ 75 mls/hr TPN CONT IV Last administered on 12/28/18at 22:25; Start 12/28/18 at 22 :00; Stop 12/29/18 at 21:59 Assessment Assessment 1. Acute respiratory failure. 2. Acute hypotension, on dopamine. The patient's urine output is stable, but the patient has a significant fluid retention due to third spacing. 3. Acute pancreatitis with pseudocyst. 4. Systolic congestive heart failure. 5. Coronary artery disease, history of coronary artery bypass graft x 5. 6. Acute metabolic encephalopathy. 7. History of fall with nasal fracture. 8. History of atrial fibrillation. 9. Hyperlipidemia. 10. Severe protein-calorie malnutrition. 11. Anemia. 12. Obesity hypoventilation syndrome, with likely obstructive sleep apnea, has been on BiPAP at night. PLAN: The patient is retaining significant amount of fluids, so I will give him 1 amp of 25% albumin along with 1 unit of packed red cells as well as Lasix. Continue IV dopamine to maintain systolic blood pressure. Monitor urine output. I ordered 1 unit of packed red cells because of significant blood loss yesterday along with significant hypotension with his coronary artery disease, congestive heart failure and third spacing due to hypotension even though his hemoglobin is 7.5. We will consult Dr. Moralez for cardiology evaluation and management, Dr. Cornejo for infectious disease evaluation and management and Dr. Romero has been consulted for pulmonary evaluation and management. Continue management of the mechanical ventilation. Continue to hold some of the previous medications. We will start TPN this evening and continue to monitor blood sugars every 6 hours and regular insulin to TPN and also start him on IV Protonix. Prognosis of this patient is very poor. For details, please refer to the orders. I will also consult Dr. Giraldo for GI evaluation and management. Fluid retention- ,give 1 amp of the IV albumin as well as 40 mg of IV Lasix. Consult Dr. Ken for management of fluid retention. He has severe anasarca.He has decreased drainage in the MISTY drain. He put out a lot of the urine yesterday and has lost 6 pounds. Severe protein calorie malnutrition- continue TPN. Albumin has increased to 1.8. Give IV albumin followed by Lasix. Patient does not have bowel sounds. Continue IV TPN. Diabetes mellitus type 2- not controlled. Continue regular insulin in TPN as well as sliding scale insulin. Hypokalemia-better. Hypomagnesemia- replaced. Discussed with patient's brother Weston. Hypotension- resolved off dopamine . Coronary artery disease- echocardiogram shows ejection fraction of 60%. Acute cholecystitis off. IV Zosyn. On Merrem Anemia- hemoglobin is 8.1 Plan Plan For more details regarding further plans, please refer to the orders. REHANA CASE MD Dec 29, 2018 10:21
--- NOTE | 2018-12-29 11:43 | PDOC ---
PULMONARY PROGRESS NOTES Subjective REMAINS ON SEDATION AC MODE Vitals Vital Signs Date Time Temp Pulse Resp B/P (MAP) Pulse Ox O2 Delivery O2 Flow Rate FiO2 12/29/18 11:00 90 17 166/77 (106) 99 Ventilator 12/29/18 07:00 98.0 98.0 Lungs: Other (decrease bs) Cardiovascular: S1, S2 Abdomen: Soft, Other (G TUBE) Extremities: Other (EDEMA) Skin: Warm Labs Laboratory Tests Test 12/27/18 13:14 12/27/18 17:37 12/27/18 23:41 12/28/18 00:06 Glucose (Fingerstick) 214 mg/dL (70-99) 200 mg/dL (70-99) 159 mg/dL (70-99) 177 mg/dL (70-99) Test 12/28/18 05:40 12/28/18 05:50 12/28/18 09:00 12/28/18 12:05 Glucose (Fingerstick) 167 mg/dL (70-99) 185 mg/dL (70-99) White Blood Count 3.7 x10^3/uL (4.0-11.0) Red Blood Count 3.04 x10^6/uL (4.30-5.70) Hemoglobin 8.1 g/dL (13.0-17.5) Hematocrit 25.5 % (39.0-53.0) Mean Corpuscular Volume 84 fL (79-100) Mean Corpuscular Hemoglobin 27 pg (25-35) Mean Corpuscular Hemoglobin Concent 32 g/dL (31-37) Red Cell Distribution Width 19.5 % (11.5-14.5) Platelet Count 184 x10^3/uL (140-400) Neutrophils (%) (Auto) 63 % (31-73) Lymphocytes (%) (Auto) 19 % (24-48) Monocytes (%) (Auto) 14 % (0-9) Eosinophils (%) (Auto) 3 % (0-3) Basophils (%) (Auto) 1 % (0-3) Neutrophils # (Auto) 2.3 x10^3uL (1.8-7.7) Lymphocytes # (Auto) 0.7 x10^3/uL (1.0-4.8) Monocytes # (Auto) 0.5 x10^3/uL (0.0-1.1) Eosinophils # (Auto) 0.1 x10^3/uL (0.0-0.7) Basophils # (Auto) 0.0 x10^3/uL (0.0-0.2) Sodium Level 141 mmol/L (136-145) Potassium Level 4.2 mmol/L (3.5-5.1) Chloride Level 103 mmol/L (98-107) Carbon Dioxide Level 36 mmol/L (21-32) Anion Gap 2 (6-14) Blood Urea Nitrogen 11 mg/dL (8-26) Creatinine 0.5 mg/dL (0.7-1.3) Estimated GFR (Cockcroft-Gault) 170.8 BUN/Creatinine Ratio 22 (6-20) Glucose Level 182 mg/dL (70-99) Calcium Level 7.8 mg/dL (8.5-10.1) Phosphorus Level 4.0 mg/dL (2.6-4.7) Magnesium Level 1.6 mg/dL (1.8-2.4) Total Bilirubin 0.6 mg/dL (0.2-1.0) Aspartate Amino Transf (AST/SGOT) 13 U/L (15-37) Alanine Aminotransferase (ALT/SGPT) 11 U/L (16-63) Alkaline Phosphatase 135 U/L (46-116) Total Protein 4.5 g/dL (6.4-8.2) Albumin 1.7 g/dL (3.4-5.0) Albumin/Globulin Ratio 0.6 (1.0-1.7) O2 Saturation 96 % (92-99) Arterial Blood pH 7.41 (7.35-7.45) Arterial Blood pCO2 at Patient Temp 58 mmHg (35-46) Arterial Blood pO2 at Patient Temp 83 mmHg (75-108) Arterial Blood HCO3 36 mmol/L (21-28) Arterial Blood Base Excess 10 mmol/L (-3-3) FiO2 50 Test 12/28/18 19:03 12/29/18 00:25 12/29/18 05:30 12/29/18 05:32 Glucose (Fingerstick) 205 mg/dL (70-99) 203 mg/dL (70-99) 210 mg/dL (70-99) White Blood Count 4.2 x10^3/uL (4.0-11.0) Red Blood Count 3.09 x10^6/uL (4.30-5.70) Hemoglobin 8.1 g/dL (13.0-17.5) Hematocrit 25.7 % (39.0-53.0) Mean Corpuscular Volume 83 fL (79-100) Mean Corpuscular Hemoglobin 26 pg (25-35) Mean Corpuscular Hemoglobin Concent 32 g/dL (31-37) Red Cell Distribution Width 19.1 % (11.5-14.5) Platelet Count 174 x10^3/uL (140-400) Neutrophils (%) (Auto) 63 % (31-73) Lymphocytes (%) (Auto) 19 % (24-48) Monocytes (%) (Auto) 15 % (0-9) Eosinophils (%) (Auto) 3 % (0-3) Basophils (%) (Auto) 1 % (0-3) Neutrophils # (Auto) 2.7 x10^3uL (1.8-7.7) Lymphocytes # (Auto) 0.8 x10^3/uL (1.0-4.8) Monocytes # (Auto) 0.6 x10^3/uL (0.0-1.1) Eosinophils # (Auto) 0.1 x10^3/uL (0.0-0.7) Basophils # (Auto) 0.0 x10^3/uL (0.0-0.2) Sodium Level 137 mmol/L (136-145) Potassium Level 4.3 mmol/L (3.5-5.1) Chloride Level 102 mmol/L (98-107) Carbon Dioxide Level 37 mmol/L (21-32) Anion Gap (6-14) Blood Urea Nitrogen 14 mg/dL (8-26) Creatinine 0.3 mg/dL (0.7-1.3) Estimated GFR (Cockcroft-Gault) > 300.0 BUN/Creatinine Ratio 47 (6-20) Glucose Level 218 mg/dL (70-99) Calcium Level 7.8 mg/dL (8.5-10.1) Phosphorus Level 3.5 mg/dL (2.6-4.7) Magnesium Level 1.8 mg/dL (1.8-2.4) Total Bilirubin 0.5 mg/dL (0.2-1.0) Aspartate Amino Transf (AST/SGOT) 16 U/L (15-37) Alanine Aminotransferase (ALT/SGPT) 10 U/L (16-63) Alkaline Phosphatase 176 U/L (46-116) Total Protein 4.8 g/dL (6.4-8.2) Albumin 1.8 g/dL (3.4-5.0) Albumin/Globulin Ratio 0.6 (1.0-1.7) Lipase 115 U/L (73-393) Procalcitonin 0.17 ng/mL (0.00-0.10) Test 12/29/18 08:15 O2 Saturation 97 % (92-99) Arterial Blood pH 7.39 (7.35-7.45) Arterial Blood pCO2 at Patient Temp 62 mmHg (35-46) Arterial Blood pO2 at Patient Temp 95 mmHg (75-108) Arterial Blood HCO3 37 mmol/L (21-28) Arterial Blood Base Excess 11 mmol/L (-3-3) FiO2 50 Laboratory Tests Test 12/28/18 12:05 12/28/18 19:03 12/29/18 00:25 12/29/18 05:30 Glucose (Fingerstick) 185 mg/dL (70-99) 205 mg/dL (70-99) 203 mg/dL (70-99) White Blood Count 4.2 x10^3/uL (4.0-11.0) Red Blood Count 3.09 x10^6/uL (4.30-5.70) Hemoglobin 8.1 g/dL (13.0-17.5) Hematocrit 25.7 % (39.0-53.0) Mean Corpuscular Volume 83 fL (79-100) Mean Corpuscular Hemoglobin 26 pg (25-35) Mean Corpuscular Hemoglobin Concent 32 g/dL (31-37) Red Cell Distribution Width 19.1 % (11.5-14.5) Platelet Count 174 x10^3/uL (140-400) Neutrophils (%) (Auto) 63 % (31-73) Lymphocytes (%) (Auto) 19 % (24-48) Monocytes (%) (Auto) 15 % (0-9) Eosinophils (%) (Auto) 3 % (0-3) Basophils (%) (Auto) 1 % (0-3) Neutrophils # (Auto) 2.7 x10^3uL (1.8-7.7) Lymphocytes # (Auto) 0.8 x10^3/uL (1.0-4.8) Monocytes # (Auto) 0.6 x10^3/uL (0.0-1.1) Eosinophils # (Auto) 0.1 x10^3/uL (0.0-0.7) Basophils # (Auto) 0.0 x10^3/uL (0.0-0.2) Sodium Level 137 mmol/L (136-145) Potassium Level 4.3 mmol/L (3.5-5.1) Chloride Level 102 mmol/L (98-107) Carbon Dioxide Level 37 mmol/L (21-32) Anion Gap (6-14) Blood Urea Nitrogen 14 mg/dL (8-26) Creatinine 0.3 mg/dL (0.7-1.3) Estimated GFR (Cockcroft-Gault) > 300.0 BUN/Creatinine Ratio 47 (6-20) Glucose Level 218 mg/dL (70-99) Calcium Level 7.8 mg/dL (8.5-10.1) Phosphorus Level 3.5 mg/dL (2.6-4.7) Magnesium Level 1.8 mg/dL (1.8-2.4) Total Bilirubin 0.5 mg/dL (0.2-1.0) Aspartate Amino Transf (AST/SGOT) 16 U/L (15-37) Alanine Aminotransferase (ALT/SGPT) 10 U/L (16-63) Alkaline Phosphatase 176 U/L (46-116) Total Protein 4.8 g/dL (6.4-8.2) Albumin 1.8 g/dL (3.4-5.0) Albumin/Globulin Ratio 0.6 (1.0-1.7) Lipase 115 U/L (73-393) Procalcitonin 0.17 ng/mL (0.00-0.10) Test 12/29/18 05:32 12/29/18 08:15 Glucose (Fingerstick) 210 mg/dL (70-99) O2 Saturation 97 % (92-99) Arterial Blood pH 7.39 (7.35-7.45) Arterial Blood pCO2 at Patient Temp 62 mmHg (35-46) Arterial Blood pO2 at Patient Temp 95 mmHg (75-108) Arterial Blood HCO3 37 mmol/L (21-28) Arterial Blood Base Excess 11 mmol/L (-3-3) FiO2 50 Medications Active Scripts Medications Dose Route/Sig Max Daily Dose Days Date Category Trophamine (Amino Acids 10 %) 500 Ml Iv.soln 500 Ml IV DAILY 199912/21/18 Reported Duoneb 0.5-3(2.5) Mg/3 Ml (Albuterol/Ipratropium) 3 Ml Ampul.neb 3 Ml NEB BID 12/21/18 Reported Dulcolax (Bisacodyl) 10 Mg Supp.rect 10 Mg RC PRN DAILY PRN 12/21/18 Reported Duoneb 0.5-3(2.5) Mg/3 Ml (Albuterol/Ipratropium) 3 Ml Ampul.neb 3 Ml NEB PRN Q4HRS PRN 12/21/18 Reported Atorvastatin Calcium 40 Mg Tablet 1 Tab PO QHS 12/21/18 Reported Simethicone 80 Mg Tab.chew 80 Mg PO PRN TID PRN 12/21/18 Reported Humalog (Insulin Lispro) 100 Unit/1 Ml Vial 0 SQ Q6HRS 12/21/18 Reported Ondansetron Hcl 4 Mg/2 Ml Vial (Ondansetron Hcl/Pf) 4 Mg/2 Ml Vial 4 Mg IJ PRN Q6HRS PRN 12/21/18 Reported Actos (Pioglitazone Hcl) 15 Mg Tablet 1 Tab PO DAILY 12/21/18 Reported Tylenol Extra Strength (Acetaminophen) 500 Mg Tablet 1,000 Mg PO PRN Q6HRS PRN 12/21/18 Reported Senokot-S Tablet (Sennosides/Docusate Sodium) 1 Each Tablet 1 Tab PO BID 12/21/18 Reported Vitamin D3 (Cholecalciferol (Vitamin D3)) 1,000 Unit Tablet 1 Tab PO DAILY 12/21/18 Reported Carvedilol (Carvedilol) 12.5 Mg Tablet 12.5 Mg PO BIDWMEALS 12/21/18 Reported Comments CXR 12/29 IMPRESSION: [id number] effusions with adjacent infiltrates. No change. Impression . 1. Expected hypoxemic respiratory failure, status post open pancreatic pseudocyst gastrostomy, open cholecystectomy, G-tube placement. 2. History of necrotizing pancreatitis. 3. Abnormal x-ray c/w basal effusions 4. Possible sepsis. 5. Coronary artery disease, status post coronary artery bypass grafting. 6. History of alcoholism. 7. Protein malnutrition, present upon admission. 8. Acute blood loss anemia, expected. S/P TRANSFUSIONS Plan . WEAN OFF SEDATION SLOWLY WEAN FIO2 AND PEEP TRIAL WHEN SEDATION OFF AND HE AWAKENS MAKING MILD PROGRESS OFF PRESSORS D/W RN ABG NOTED TPN FOR NUTRITION DVT PROPH FOLLOW CONSULTANTS INPUT CCT 30 STEVIE WHITE MD Dec 29, 2018 11:43
--- NOTE | 2018-12-29 12:00 | PDOC ---
Objective: Objective: Reviewed w/ RN - about the same, ongoing MISTY output. Vital Signs: Vital Signs Date Time Temp Pulse Resp B/P (MAP) Pulse Ox O2 Delivery O2 Flow Rate FiO2 12/29/18 11:00 90 17 166/77 (106) 99 Ventilator 12/29/18 07:00 98.0 98.0 Labs: Laboratory Tests Test 12/28/18 12:05 12/28/18 19:03 12/29/18 00:25 12/29/18 05:30 Glucose (Fingerstick) 185 mg/dL 205 mg/dL 203 mg/dL White Blood Count 4.2 x10^3/uL Red Blood Count 3.09 x10^6/uL Hemoglobin 8.1 g/dL Hematocrit 25.7 % Mean Corpuscular Volume 83 fL Mean Corpuscular Hemoglobin 26 pg Mean Corpuscular Hemoglobin Concent 32 g/dL Red Cell Distribution Width 19.1 % Platelet Count 174 x10^3/uL Neutrophils (%) (Auto) 63 % Lymphocytes (%) (Auto) 19 % Monocytes (%) (Auto) 15 % Eosinophils (%) (Auto) 3 % Basophils (%) (Auto) 1 % Neutrophils # (Auto) 2.7 x10^3uL Lymphocytes # (Auto) 0.8 x10^3/uL Monocytes # (Auto) 0.6 x10^3/uL Eosinophils # (Auto) 0.1 x10^3/uL Basophils # (Auto) 0.0 x10^3/uL Sodium Level 137 mmol/L Potassium Level 4.3 mmol/L Chloride Level 102 mmol/L Carbon Dioxide Level 37 mmol/L Anion Gap Blood Urea Nitrogen 14 mg/dL Creatinine 0.3 mg/dL Estimated GFR (Cockcroft-Gault) > 300.0 BUN/Creatinine Ratio 47 Glucose Level 218 mg/dL Calcium Level 7.8 mg/dL Phosphorus Level 3.5 mg/dL Magnesium Level 1.8 mg/dL Total Bilirubin 0.5 mg/dL Aspartate Amino Transf (AST/SGOT) 16 U/L Alanine Aminotransferase (ALT/SGPT) 10 U/L Alkaline Phosphatase 176 U/L Total Protein 4.8 g/dL Albumin 1.8 g/dL Albumin/Globulin Ratio 0.6 Lipase 115 U/L Procalcitonin 0.17 ng/mL Test 12/29/18 05:32 12/29/18 08:15 Glucose (Fingerstick) 210 mg/dL O2 Saturation 97 % Arterial Blood pH 7.39 Arterial Blood pCO2 at Patient Temp 62 mmHg Arterial Blood pO2 at Patient Temp 95 mmHg Arterial Blood HCO3 37 mmol/L Arterial Blood Base Excess 11 mmol/L FiO2 50 Imaging: CXR 12/29 IMPRESSION: Ovlfo-nj-[id number] effusions with adjacent infiltrates. No change. PE: GEN: intubated LUNGS: vent HEART: RRR ABD: still quiet - MISTY serosang NEURO/PSYCH: sedated A/P: Necrotizing pancreatitis s/p pancreatic pseudocystgastrostomy, karis, and G- tube placement ---> post-op ileus, intubated on TPN Anemia (stable), elevated Alk Phos -- Continue support. KALEE ULLOA Dec 29, 2018 12:00
[2018-12-29] MEDS: FUROSEMIDE 40 MG/4 ML VIAL. IVP SCH ×2 (12:28→19:45)
--- NOTE | 2018-12-29 12:46 | PDOC ---
Renal-Progress Notes Subjective Notes Notes INTUBATED AND REMAINS IN THE ICU History of Present Illness Hx of present illness NOT MUCH BETTER Vitals Vitals Vital Signs Date Time Temp Pulse Resp B/P (MAP) Pulse Ox O2 Delivery O2 Flow Rate FiO2 12/29/18 12:16 95 Ventilator 12/29/18 11:00 90 17 166/77 (106) 12/29/18 07:00 98.0 98.0 Weight Weight [ ] I.O. Intake and Output Intake and Output 12/29/18 07:00 Intake Total 2526.1 ml Output Total 5483 ml Balance -2956.9 ml IV Total 2526.1 ml Output Urine Total 4230 ml Drainage Total 1253 ml Labs Labs Laboratory Tests Test 12/28/18 19:03 12/29/18 00:25 12/29/18 05:30 12/29/18 05:32 Glucose (Fingerstick) 205 mg/dL (70-99) 203 mg/dL (70-99) 210 mg/dL (70-99) White Blood Count 4.2 x10^3/uL (4.0-11.0) Red Blood Count 3.09 x10^6/uL (4.30-5.70) Hemoglobin 8.1 g/dL (13.0-17.5) Hematocrit 25.7 % (39.0-53.0) Mean Corpuscular Volume 83 fL (79-100) Mean Corpuscular Hemoglobin 26 pg (25-35) Mean Corpuscular Hemoglobin Concent 32 g/dL (31-37) Red Cell Distribution Width 19.1 % (11.5-14.5) Platelet Count 174 x10^3/uL (140-400) Neutrophils (%) (Auto) 63 % (31-73) Lymphocytes (%) (Auto) 19 % (24-48) Monocytes (%) (Auto) 15 % (0-9) Eosinophils (%) (Auto) 3 % (0-3) Basophils (%) (Auto) 1 % (0-3) Neutrophils # (Auto) 2.7 x10^3uL (1.8-7.7) Lymphocytes # (Auto) 0.8 x10^3/uL (1.0-4.8) Monocytes # (Auto) 0.6 x10^3/uL (0.0-1.1) Eosinophils # (Auto) 0.1 x10^3/uL (0.0-0.7) Basophils # (Auto) 0.0 x10^3/uL (0.0-0.2) Sodium Level 137 mmol/L (136-145) Potassium Level 4.3 mmol/L (3.5-5.1) Chloride Level 102 mmol/L (98-107) Carbon Dioxide Level 37 mmol/L (21-32) Anion Gap (6-14) Blood Urea Nitrogen 14 mg/dL (8-26) Creatinine 0.3 mg/dL (0.7-1.3) Estimated GFR (Cockcroft-Gault) > 300.0 BUN/Creatinine Ratio 47 (6-20) Glucose Level 218 mg/dL (70-99) Calcium Level 7.8 mg/dL (8.5-10.1) Phosphorus Level 3.5 mg/dL (2.6-4.7) Magnesium Level 1.8 mg/dL (1.8-2.4) Total Bilirubin 0.5 mg/dL (0.2-1.0) Aspartate Amino Transf (AST/SGOT) 16 U/L (15-37) Alanine Aminotransferase (ALT/SGPT) 10 U/L (16-63) Alkaline Phosphatase 176 U/L (46-116) Total Protein 4.8 g/dL (6.4-8.2) Albumin 1.8 g/dL (3.4-5.0) Albumin/Globulin Ratio 0.6 (1.0-1.7) Lipase 115 U/L (73-393) Procalcitonin 0.17 ng/mL (0.00-0.10) Test 12/29/18 08:15 O2 Saturation 97 % (92-99) Arterial Blood pH 7.39 (7.35-7.45) Arterial Blood pCO2 at Patient Temp 62 mmHg (35-46) Arterial Blood pO2 at Patient Temp 95 mmHg (75-108) Arterial Blood HCO3 37 mmol/L (21-28) Arterial Blood Base Excess 11 mmol/L (-3-3) FiO2 50 Micro Micro Microbiology 12/22/18 Anaerobic/Aerobic Culture - Final, Complete 12/22/18 Anaerobic Culture Result 1 (MELONY) - Final, Complete 12/22/18 Aerobic Culture - Final, Complete 12/22/18 Aerobic Culture Result 1 (MELONY) - Final, Complete 12/22/18 Gram Stain - Final, Complete 12/22/18 Gram Stain Result 1 (MELONY) - Final, Complete 12/22/18 Gram Stain Result 2 (MELONY) - Final, Complete Review of Systems Constitutional: yes: other (UNABLE TO OBTAIN) Physical Exam General Appearance: other (SEDATED) Skin: warm Respiratory: decreased breath sounds Heart: S1S2, RRR Abdomen: soft, distension, other (HYPOACTIVE) Genitourinary: bladder flat Extremities: pulses present, edema Neurology: other (sedated) Assessment Assessment IMP PANCREATIC PSEUDOCYST RESECTION MALNUTRITION EDEMA DUE TO 3RD SPACING LOW K AND MAG-BETTER DM II ETOH ABUSE HX EDEMA/ANASARCA PLAN SCHEDULED IV LASIX CONT TPN FOR NOW CONT WITH K AND MAG REPLACEMENT PROTOCOL ANTIBIOTICS VENT SUPPORT SUPPORTIVE CARE PRESSORS NEEDED D/W DR WHITE WILL FOLLOW SARAHY BALDERAS MD Dec 29, 2018 12:46
[2018-12-29] MEDS: TPN PER PHARMACY MC PRN ×2 (14:09→14:11)
--- NOTE | 2018-12-29 14:12 | NUR ---
Pharmacy TPN Dosing Note S: JUSTIN OLSEN is a 58 year old M Currently receiving Central Continuous TPN started B:Pertinent PMH: PANCREATITIS; [facility] T[facility] from [facility] Height: 6 feet, 0 inches Weight: 108.818721 kg Current diet: NPO LABS: Sodium: 137 Potassium: 4.3 Chloride: 102 Calcium: 7.8 Corrected Calcium: 9.64 Magnesium: 1.8 CO2: 37 SCr: 0.3 Glucose: 170-218 Albumin: 1.7 AST: 16 ALT: 10 TPN FORMULA: TPN TYPE: Central Continuous AMINO ACIDS: 100 gm DEXTROSE: 375 gm LIPIDS: 30 gm SODIUM CHLORIDE: 110 mEq SODIUM ACETATE: 12 mEq SODIUM PHOSPHATE: mmol POTASSIUM CHLORIDE: 60 mEq POTASSIUM ACETATE: mEq POTASSIUM PHOSPHATE: 20 mmol MAGNESIUM: 25 mEq CALCIUM: 9.3 mEq INSULIN: 85 units MULTIPLE VITAMIN: 10 ml TRACE ELEMENTS: 1 ml(s) TPN PLAN: Lytes stable, no changes. BG starting to creep up, 8 units SSI given today. Will increase insulin by 5 units to 90 units in bag. No other changes. R: Continue TPN ABOVE. Will monitor electrolytes, glucose, and tolerance to TPN. HAYLEE KEEN [facility], 12/29/18 1410
--- NOTE | 2018-12-29 15:00 | RAD ---
Portable chest, 12/29/2018, 2:21 PM: HISTORY: Check ET tube placement Comparison is made to the study of earlier the same day. The ET tube tip lies 9-10 cm above the juan. A right PICC extends into the inferior aspect of the superior vena cava. The right jugular central venous catheter has been removed. The heart size is unchanged. There are ongoing hazy bibasilar opacities compatible with pleural fluid and mild underlying atelectasis/infiltrate. These opacities are probably unchanged when allowing for differences in patient positioning. There is no evidence of pneumothorax. No new abnormality is seen. IMPRESSION: 1. The ET tube tip lies 9-10 cm above the juan. 2. Unchanged pleural effusions with underlying bibasilar atelectasis/infiltrate. Electronically signed by: Michoacano Bruce MD (12/29/2018 2:57 PM) [facility]
[2018-12-29 15:44] LABS: BASE EXCESS ABG 13 mmol/L (-3-3); HCO3 ABG 40 mmol/L (21-28); PO2 ABG 103 mmHg (75-108); SAT O2 ABG 97 % (92-99)
[2018-12-29 15:46] LABS: PCO2 ABG 64 mmHg (35-46)
[2018-12-29 15:47] LABS: FIO2 ABG 100
[2018-12-29] MEDS: IV NORMAL SALINE 1000ML BAG 1,000 ML IV SCH (16:00)
[2018-12-29] MEDS ORDERED: DEXTROSE 70% IV SCH ×12 (22:00)
[2018-12-29] MEDS ORDERED: AMINO ACID IV SCH ×12 (22:00)
[2018-12-29] MEDS ORDERED: [UNRECOGNIZED DRUG - OTHER] IV SCH ×12 (22:00)
[2018-12-29] MEDS ORDERED: TOTAL PARENTERAL NUTRITION IV SCH ×12 (22:00)
[2018-12-29] MEDS: MORPHINE SULFATE 2 MG/ML VIAL. IV PRN (23:23)
[2018-12-30] VITALS (24 sets, daily range): BP systolic 121–159; BP diastolic 63–85
[2018-12-30] MEDS: FUROSEMIDE 40 MG/4 ML VIAL. IVP SCH ×3 (04:08→20:57)
[2018-12-30] MEDS: MORPHINE SULFATE 2 MG/ML VIAL. IV PRN ×2 (05:27→13:23)
[2018-12-30] MEDS: INSULIN LISPRO 300 UNITS/3 ML INSULN.PEN. SQ SCH ×4 (05:45→23:59)
[2018-12-30] MEDS: MEROPENEM 500 MG in IV NORMAL SALINE 50ML 50 ML IV SCH ×4 (05:46→23:57)
[2018-12-30 05:52] LABS: BASO % 1 % (0-3); EOS # 0.1 x10^3/uL (0.0-0.7); EOS % 2 % (0-3); HEMATOCRIT 28.4 % (39.0-53.0); HEMOGLOBIN 9.3 g/dL (13.0-17.5); LYMPH # 0.9 x10^3/uL (1.0-4.8); LYMPH % 15 % (24-48); MEAN CORPUSCULAR HEMOGLOBIN 27 pg (25-35); MEAN CORPUSCULAR HGB CONC 33 g/dL (31-37); MEAN CORPUSCULAR VOLUME 83 fL (79-100); MONO # 0.8 x10^3/uL (0.0-1.1); MONO % 14 % (0-9); NEUT % 68 % (31-73); PLATELET COUNT 210 x10^3/uL (140-400); RED BLOOD COUNT 3.43 x10^6/uL (4.30-5.70); RED CELL DISTRIBUTION WIDTH 19.3 % (11.5-14.5); WHITE BLOOD COUNT 5.9 x10^3/uL (4.0-11.0)
[2018-12-30 06:12] LABS: ALBUMIN 1.9 g/dL (3.4-5.0); ALBUMIN/GLOBULIN RATIO 0.5 (1.0-1.7); CREATININE 0.6 mg/dL (0.7-1.3); GFR 138.4; MAGNESIUM 1.5 mg/dL (1.8-2.4); PHOSPHORUS 3.5 mg/dL (2.6-4.7); TOTAL BILIRUBIN 0.6 mg/dL (0.2-1.0); TOTAL PROTEIN 5.4 g/dL (6.4-8.2)
--- NOTE | 2018-12-30 07:52 | RAD ---
PORTABLE CHEST 1V History: respiratory failure Comparison: December 29, 2018 Findings: AP portable view of the chest is submitted. There again has been a median sternotomy, fractures of the superior 3 wires as seen previously. Pericardial cardiac silhouette is somewhat enlarged although unchanged. There are again small right greater than left pleural effusions with adjacent bibasilar airspace opacity, also perihilar opacity bilaterally overall fairly similar. There is no pneumothorax. Endotracheal tube tip terminates about 5 cm from juan. Impression: 1. Radiographic findings are similar, small bilateral pleural effusions greater on the right as well as bibasilar and perihilar airspace opacity which may be due to edema and/or infiltrates. Electronically signed by: Fco Denny MD (12/30/2018 7:49 AM) [id number]
[2018-12-30] MEDS ORDERED: MAGNESIUM SULFATE 2GM 50 ML IV ONE ×2 (08:30→12:15)
[2018-12-30] MEDS: PANTOPRAZOLE IV PUSH 40 MG VIAL. IVP SCH (08:48)
[2018-12-30] MEDS ORDERED: BISACODYL 10 MG SUPP.RECT. PR PRN (09:00)
--- NOTE | 2018-12-30 09:00 | PDOC ---
Infectious Disease Note Subjective Subjective Intubated/sedated Tube came out yesterday but did not do well on Bipap and reintubated Vital Sign Vital Signs Vital Signs Date Time Temp Pulse Resp B/P (MAP) Pulse Ox O2 Delivery O2 Flow Rate FiO2 12/30/18 08:23 94 Ventilator 12/30/18 06:00 96 25 121/64 (83) 12/30/18 04:00 98.7 98.7 12/29/18 13:00 15.0 Physical Exam PHYSICAL EXAM GENERAL: Intubated, sedated HEENT: PERRL, ETT LUNGS: Mechanical breath sounds . HEART: S1 and S2. No gallops or murmurs. ABDOMEN: Obese, soft, BS quiet, MISTY - sanguinous drainage, G-tube in place, midline incision well-approx, blister - better. min erythema : Pepe in place, scrotal swelling EXTREMITIES: Generalized edema. DERMATOLOGICAL: Multiple tattoos. Warm and dry. No generalized rash. CENTRAL NERVOUS SYSTEM: Sedated and intubated. RUE-PICC ( POA) Labs Lab Laboratory Tests Test 12/29/18 12:44 12/29/18 15:30 12/29/18 18:24 12/29/18 23:38 Glucose (Fingerstick) 170 mg/dL (70-99) 231 mg/dL (70-99) 292 mg/dL (70-99) O2 Saturation 97 % (92-99) Arterial Blood pH 7.41 (7.35-7.45) Arterial Blood pCO2 at Patient Temp 64 mmHg (35-46) Arterial Blood pO2 at Patient Temp 103 mmHg (75-108) Arterial Blood HCO3 40 mmol/L (21-28) Arterial Blood Base Excess 13 mmol/L (-3-3) FiO2 100 Test 12/30/18 05:30 12/30/18 05:44 12/30/18 07:42 White Blood Count 5.9 x10^3/uL (4.0-11.0) Red Blood Count 3.43 x10^6/uL (4.30-5.70) Hemoglobin 9.3 g/dL (13.0-17.5) Hematocrit 28.4 % (39.0-53.0) Mean Corpuscular Volume 83 fL (79-100) Mean Corpuscular Hemoglobin 27 pg (25-35) Mean Corpuscular Hemoglobin Concent 33 g/dL (31-37) Red Cell Distribution Width 19.3 % (11.5-14.5) Platelet Count 210 x10^3/uL (140-400) Neutrophils (%) (Auto) 68 % (31-73) Lymphocytes (%) (Auto) 15 % (24-48) Monocytes (%) (Auto) 14 % (0-9) Eosinophils (%) (Auto) 2 % (0-3) Basophils (%) (Auto) 1 % (0-3) Neutrophils # (Auto) 4.0 x10^3uL (1.8-7.7) Lymphocytes # (Auto) 0.9 x10^3/uL (1.0-4.8) Monocytes # (Auto) 0.8 x10^3/uL (0.0-1.1) Eosinophils # (Auto) 0.1 x10^3/uL (0.0-0.7) Basophils # (Auto) 0.0 x10^3/uL (0.0-0.2) Sodium Level 139 mmol/L (136-145) Potassium Level 4.0 mmol/L (3.5-5.1) Chloride Level 100 mmol/L (98-107) Carbon Dioxide Level 38 mmol/L (21-32) Anion Gap 1 (6-14) Blood Urea Nitrogen 15 mg/dL (8-26) Creatinine 0.6 mg/dL (0.7-1.3) Estimated GFR (Cockcroft-Gault) 138.4 BUN/Creatinine Ratio 25 (6-20) Glucose Level 268 mg/dL (70-99) Calcium Level 8.0 mg/dL (8.5-10.1) Phosphorus Level 3.5 mg/dL (2.6-4.7) Magnesium Level 1.5 mg/dL (1.8-2.4) Total Bilirubin 0.6 mg/dL (0.2-1.0) Aspartate Amino Transf (AST/SGOT) 28 U/L (15-37) Alanine Aminotransferase (ALT/SGPT) 17 U/L (16-63) Alkaline Phosphatase 184 U/L (46-116) Total Protein 5.4 g/dL (6.4-8.2) Albumin 1.9 g/dL (3.4-5.0) Albumin/Globulin Ratio 0.5 (1.0-1.7) Glucose (Fingerstick) 240 mg/dL (70-99) 212 mg/dL (70-99) Micro Microbiology 12/22/18 Anaerobic/Aerobic Culture - Preliminary, Resulted 12/22/18 Anaerobic Culture Result 1 (MELONY) - Preliminary, Resulted 12/22/18 Aerobic Culture - Final, Resulted 12/22/18 Aerobic Culture Result 1 (MELONY) - Final, Resulted 12/22/18 Gram Stain - Final, Resulted 12/22/18 Gram Stain Result 1 (MELONY) - Final, Resulted 12/22/18 Gram Stain Result 2 (MELONY) - Final, Resulted Objective Assessment Low grade temp times one. sputum cult pending - Had large BM today. Procalcitonin mild elevation Severe cholecystitis, status post cholecystectomy, 12/22/2018. Large pancreatic pseudocyst, status post open pancreatic pseudocyst gastrostomy , open cholecystectomy and gastrostomy tube placement on 12/22/2018. Leukopenia - better Anemia, likely postop blood loss.S/P PRBC transfusion, 12/25 Acute respiratory failure postop intubated. History of heavy alcohol dependence. Systolic congestive heart failure. Coronary artery disease, status post coronary artery bypass graft. Acute metabolic encephalopathy. History of fall with nasal fracture. History of atrial fibrillation. Severe protein-calorie malnutrition. Obesity hypoventilation syndrome, likely obstructive sleep apnea, has bilevel positive airway pressure at night. Plan Plan of Care Cont Merrem since 12/25 IF spikes will recult and begin Vanc/Micafungin F/u sputum cult Monitor labs/temp Supportive care. Critically ill D/w nursing CHET WOODSON MD Dec 30, 2018 09:00
--- NOTE | 2018-12-30 09:12 | PDOC ---
SURGICAL PROGRESS NOTE Subjective Pt intubated, off sedation but minimally awake Vital Signs Vital Signs Date Time Temp Pulse Resp B/P (MAP) Pulse Ox O2 Delivery O2 Flow Rate FiO2 12/30/18 08:23 94 Ventilator 12/30/18 06:00 96 25 121/64 (83) 12/30/18 04:00 98.7 98.7 12/29/18 13:00 15.0 I&O Intake and Output 12/30/18 07:00 Intake Total 2564 ml Output Total 6510 ml Balance -3946 ml IV Total 2441 ml Tube Feeding 123 ml Output Urine Total 5505 ml Drainage Total 1005 ml PATIENT HAS A MAGAÑA: Yes (accurate i and o) General: No acute distress Abdomen: Soft, No tenderness, Other (michelle TF, MISTY min serosang) Labs Laboratory Tests Test 12/28/18 12:05 12/28/18 19:03 12/29/18 00:25 12/29/18 05:30 Glucose (Fingerstick) 185 mg/dL (70-99) 205 mg/dL (70-99) 203 mg/dL (70-99) White Blood Count 4.2 x10^3/uL (4.0-11.0) Red Blood Count 3.09 x10^6/uL (4.30-5.70) Hemoglobin 8.1 g/dL (13.0-17.5) Hematocrit 25.7 % (39.0-53.0) Mean Corpuscular Volume 83 fL (79-100) Mean Corpuscular Hemoglobin 26 pg (25-35) Mean Corpuscular Hemoglobin Concent 32 g/dL (31-37) Red Cell Distribution Width 19.1 % (11.5-14.5) Platelet Count 174 x10^3/uL (140-400) Neutrophils (%) (Auto) 63 % (31-73) Lymphocytes (%) (Auto) 19 % (24-48) Monocytes (%) (Auto) 15 % (0-9) Eosinophils (%) (Auto) 3 % (0-3) Basophils (%) (Auto) 1 % (0-3) Neutrophils # (Auto) 2.7 x10^3uL (1.8-7.7) Lymphocytes # (Auto) 0.8 x10^3/uL (1.0-4.8) Monocytes # (Auto) 0.6 x10^3/uL (0.0-1.1) Eosinophils # (Auto) 0.1 x10^3/uL (0.0-0.7) Basophils # (Auto) 0.0 x10^3/uL (0.0-0.2) Sodium Level 137 mmol/L (136-145) Potassium Level 4.3 mmol/L (3.5-5.1) Chloride Level 102 mmol/L (98-107) Carbon Dioxide Level 37 mmol/L (21-32) Anion Gap (6-14) Blood Urea Nitrogen 14 mg/dL (8-26) Creatinine 0.3 mg/dL (0.7-1.3) Estimated GFR (Cockcroft-Gault) > 300.0 BUN/Creatinine Ratio 47 (6-20) Glucose Level 218 mg/dL (70-99) Calcium Level 7.8 mg/dL (8.5-10.1) Phosphorus Level 3.5 mg/dL (2.6-4.7) Magnesium Level 1.8 mg/dL (1.8-2.4) Total Bilirubin 0.5 mg/dL (0.2-1.0) Aspartate Amino Transf (AST/SGOT) 16 U/L (15-37) Alanine Aminotransferase (ALT/SGPT) 10 U/L (16-63) Alkaline Phosphatase 176 U/L (46-116) Total Protein 4.8 g/dL (6.4-8.2) Albumin 1.8 g/dL (3.4-5.0) Albumin/Globulin Ratio 0.6 (1.0-1.7) Lipase 115 U/L (73-393) Procalcitonin 0.17 ng/mL (0.00-0.10) Test 12/29/18 05:32 12/29/18 08:15 12/29/18 12:44 12/29/18 15:30 Glucose (Fingerstick) 210 mg/dL (70-99) 170 mg/dL (70-99) O2 Saturation 97 % (92-99) 97 % (92-99) Arterial Blood pH 7.39 (7.35-7.45) 7.41 (7.35-7.45) Arterial Blood pCO2 at Patient Temp 62 mmHg (35-46) 64 mmHg (35-46) Arterial Blood pO2 at Patient Temp 95 mmHg (75-108) 103 mmHg (75-108) Arterial Blood HCO3 37 mmol/L (21-28) 40 mmol/L (21-28) Arterial Blood Base Excess 11 mmol/L (-3-3) 13 mmol/L (-3-3) FiO2 50 100 Test 12/29/18 18:24 12/29/18 23:38 12/30/18 05:30 12/30/18 05:44 Glucose (Fingerstick) 231 mg/dL (70-99) 292 mg/dL (70-99) 240 mg/dL (70-99) White Blood Count 5.9 x10^3/uL (4.0-11.0) Red Blood Count 3.43 x10^6/uL (4.30-5.70) Hemoglobin 9.3 g/dL (13.0-17.5) Hematocrit 28.4 % (39.0-53.0) Mean Corpuscular Volume 83 fL (79-100) Mean Corpuscular Hemoglobin 27 pg (25-35) Mean Corpuscular Hemoglobin Concent 33 g/dL (31-37) Red Cell Distribution Width 19.3 % (11.5-14.5) Platelet Count 210 x10^3/uL (140-400) Neutrophils (%) (Auto) 68 % (31-73) Lymphocytes (%) (Auto) 15 % (24-48) Monocytes (%) (Auto) 14 % (0-9) Eosinophils (%) (Auto) 2 % (0-3) Basophils (%) (Auto) 1 % (0-3) Neutrophils # (Auto) 4.0 x10^3uL (1.8-7.7) Lymphocytes # (Auto) 0.9 x10^3/uL (1.0-4.8) Monocytes # (Auto) 0.8 x10^3/uL (0.0-1.1) Eosinophils # (Auto) 0.1 x10^3/uL (0.0-0.7) Basophils # (Auto) 0.0 x10^3/uL (0.0-0.2) Sodium Level 139 mmol/L (136-145) Potassium Level 4.0 mmol/L (3.5-5.1) Chloride Level 100 mmol/L (98-107) Carbon Dioxide Level 38 mmol/L (21-32) Anion Gap 1 (6-14) Blood Urea Nitrogen 15 mg/dL (8-26) Creatinine 0.6 mg/dL (0.7-1.3) Estimated GFR (Cockcroft-Gault) 138.4 BUN/Creatinine Ratio 25 (6-20) Glucose Level 268 mg/dL (70-99) Calcium Level 8.0 mg/dL (8.5-10.1) Phosphorus Level 3.5 mg/dL (2.6-4.7) Magnesium Level 1.5 mg/dL (1.8-2.4) Total Bilirubin 0.6 mg/dL (0.2-1.0) Aspartate Amino Transf (AST/SGOT) 28 U/L (15-37) Alanine Aminotransferase (ALT/SGPT) 17 U/L (16-63) Alkaline Phosphatase 184 U/L (46-116) Total Protein 5.4 g/dL (6.4-8.2) Albumin 1.9 g/dL (3.4-5.0) Albumin/Globulin Ratio 0.5 (1.0-1.7) Test 12/30/18 07:42 Glucose (Fingerstick) 212 mg/dL (70-99) Laboratory Tests Test 12/29/18 12:44 12/29/18 15:30 12/29/18 18:24 12/29/18 23:38 Glucose (Fingerstick) 170 mg/dL (70-99) 231 mg/dL (70-99) 292 mg/dL (70-99) O2 Saturation 97 % (92-99) Arterial Blood pH 7.41 (7.35-7.45) Arterial Blood pCO2 at Patient Temp 64 mmHg (35-46) Arterial Blood pO2 at Patient Temp 103 mmHg (75-108) Arterial Blood HCO3 40 mmol/L (21-28) Arterial Blood Base Excess 13 mmol/L (-3-3) FiO2 100 Test 12/30/18 05:30 12/30/18 05:44 12/30/18 07:42 White Blood Count 5.9 x10^3/uL (4.0-11.0) Red Blood Count 3.43 x10^6/uL (4.30-5.70) Hemoglobin 9.3 g/dL (13.0-17.5) Hematocrit 28.4 % (39.0-53.0) Mean Corpuscular Volume 83 fL (79-100) Mean Corpuscular Hemoglobin 27 pg (25-35) Mean Corpuscular Hemoglobin Concent 33 g/dL (31-37) Red Cell Distribution Width 19.3 % (11.5-14.5) Platelet Count 210 x10^3/uL (140-400) Neutrophils (%) (Auto) 68 % (31-73) Lymphocytes (%) (Auto) 15 % (24-48) Monocytes (%) (Auto) 14 % (0-9) Eosinophils (%) (Auto) 2 % (0-3) Basophils (%) (Auto) 1 % (0-3) Neutrophils # (Auto) 4.0 x10^3uL (1.8-7.7) Lymphocytes # (Auto) 0.9 x10^3/uL (1.0-4.8) Monocytes # (Auto) 0.8 x10^3/uL (0.0-1.1) Eosinophils # (Auto) 0.1 x10^3/uL (0.0-0.7) Basophils # (Auto) 0.0 x10^3/uL (0.0-0.2) Sodium Level 139 mmol/L (136-145) Potassium Level 4.0 mmol/L (3.5-5.1) Chloride Level 100 mmol/L (98-107) Carbon Dioxide Level 38 mmol/L (21-32) Anion Gap 1 (6-14) Blood Urea Nitrogen 15 mg/dL (8-26) Creatinine 0.6 mg/dL (0.7-1.3) Estimated GFR (Cockcroft-Gault) 138.4 BUN/Creatinine Ratio 25 (6-20) Glucose Level 268 mg/dL (70-99) Calcium Level 8.0 mg/dL (8.5-10.1) Phosphorus Level 3.5 mg/dL (2.6-4.7) Magnesium Level 1.5 mg/dL (1.8-2.4) Total Bilirubin 0.6 mg/dL (0.2-1.0) Aspartate Amino Transf (AST/SGOT) 28 U/L (15-37) Alanine Aminotransferase (ALT/SGPT) 17 U/L (16-63) Alkaline Phosphatase 184 U/L (46-116) Total Protein 5.4 g/dL (6.4-8.2) Albumin 1.9 g/dL (3.4-5.0) Albumin/Globulin Ratio 0.5 (1.0-1.7) Glucose (Fingerstick) 240 mg/dL (70-99) 212 mg/dL (70-99) Problem List s/p xlap cont vent wean, will increase tube feeds GOMEZ BRADLEY MD Dec 30, 2018 09:12
[2018-12-30 09:27] LABS: BASE EXCESS ABG 13 mmol/L (-3-3); HCO3 ABG 38 mmol/L (21-28); PCO2 ABG 51 mmHg (35-46); PO2 ABG 60 mmHg (75-108); SAT O2 ABG 91 % (92-99)
[2018-12-30 09:30] LABS: FIO2 ABG 50
--- NOTE | 2018-12-30 09:58 | PDOC ---
Objective: Objective: Reviewed w/ RN - plans for suppository, off sedation - waking up a little, ongoing MISTY ouput. Reviewed chart - on TPN, apparently tolerating tube feeds. Vital Signs: Vital Signs Date Time Temp Pulse Resp B/P (MAP) Pulse Ox O2 Delivery O2 Flow Rate FiO2 12/30/18 09:44 92 Ventilator 12/30/18 06:00 96 25 121/64 (83) 12/30/18 04:00 98.7 98.7 12/29/18 13:00 15.0 Labs: Laboratory Tests Test 12/29/18 12:44 12/29/18 15:30 12/29/18 18:24 12/29/18 23:38 Glucose (Fingerstick) 170 mg/dL 231 mg/dL 292 mg/dL O2 Saturation 97 % Arterial Blood pH 7.41 Arterial Blood pCO2 at Patient Temp 64 mmHg Arterial Blood pO2 at Patient Temp 103 mmHg Arterial Blood HCO3 40 mmol/L Arterial Blood Base Excess 13 mmol/L FiO2 100 Test 12/30/18 05:30 12/30/18 05:44 12/30/18 07:42 12/30/18 09:24 White Blood Count 5.9 x10^3/uL Red Blood Count 3.43 x10^6/uL Hemoglobin 9.3 g/dL Hematocrit 28.4 % Mean Corpuscular Volume 83 fL Mean Corpuscular Hemoglobin 27 pg Mean Corpuscular Hemoglobin Concent 33 g/dL Red Cell Distribution Width 19.3 % Platelet Count 210 x10^3/uL Neutrophils (%) (Auto) 68 % Lymphocytes (%) (Auto) 15 % Monocytes (%) (Auto) 14 % Eosinophils (%) (Auto) 2 % Basophils (%) (Auto) 1 % Neutrophils # (Auto) 4.0 x10^3uL Lymphocytes # (Auto) 0.9 x10^3/uL Monocytes # (Auto) 0.8 x10^3/uL Eosinophils # (Auto) 0.1 x10^3/uL Basophils # (Auto) 0.0 x10^3/uL Sodium Level 139 mmol/L Potassium Level 4.0 mmol/L Chloride Level 100 mmol/L Carbon Dioxide Level 38 mmol/L Anion Gap 1 Blood Urea Nitrogen 15 mg/dL Creatinine 0.6 mg/dL Estimated GFR (Cockcroft-Gault) 138.4 BUN/Creatinine Ratio 25 Glucose Level 268 mg/dL Calcium Level 8.0 mg/dL Phosphorus Level 3.5 mg/dL Magnesium Level 1.5 mg/dL Total Bilirubin 0.6 mg/dL Aspartate Amino Transf (AST/SGOT) 28 U/L Alanine Aminotransferase (ALT/SGPT) 17 U/L Alkaline Phosphatase 184 U/L Total Protein 5.4 g/dL Albumin 1.9 g/dL Albumin/Globulin Ratio 0.5 Glucose (Fingerstick) 240 mg/dL 212 mg/dL O2 Saturation 91 % Arterial Blood pH 7.49 Arterial Blood pCO2 at Patient Temp 51 mmHg Arterial Blood pO2 at Patient Temp 60 mmHg Arterial Blood HCO3 38 mmol/L Arterial Blood Base Excess 13 mmol/L FiO2 50 UNKNOWN PCP NAME ORDERED: SPUTUM CULTURE Procedure Result GRAM STAIN WHITE BLOOD CELLS Final Few GRAM STAIN EPITHELIAL CELLS Final No organisms seen GRAM STAIN RESULT 1 Final No organisms seen GRAM STAIN EVALUATION Final Comment This specimen is of good quality and is acceptable for routine bacterial culture. Performed at: DA - [facility] [address], [place], [place] [id number] Patient Safety Sitter: SUE Worrell MD, Phone: [phone] SPUTUM CULTURE-LC PENDING Imaging: CXR 12/30 Impression: 1. Radiographic findings are similar, small bilateral pleural effusions greater on the right as well as bibasilar and perihilar airspace opacity which may be due to edema and/or infiltrates. PE: GEN: intubated LUNGS: vent HEART: RRR ABD: BS+, soft, MISTY serosang w/ a little blood NEURO/PSYCH: waking up A/P: Necrotizing pancreatitis s/p pancreatic pseudocystogastrostomy, cholecystectomy , G-tube placement -- Off sedation and on tube feeds, will follow. KALEE ULLOA Dec 30, 2018 09:58
[2018-12-30] MEDS ORDERED: ALBUMIN HUMAN 25% 100 ML IV ONE (10:30)
[2018-12-30] MEDS ORDERED: DEXTROSE 50% 25 GM / 50ML DISP.SYRIN. IV PRN (10:30)
--- NOTE | 2018-12-30 11:37 | PDOC ---
PULMONARY PROGRESS NOTES Subjective OFF SEDATION/ NOT AWAKE YET AC MODE Vitals Vital Signs Date Time Temp Pulse Resp B/P (MAP) Pulse Ox O2 Delivery O2 Flow Rate FiO2 12/30/18 09:44 92 Ventilator 12/30/18 06:00 96 25 121/64 (83) 12/30/18 04:00 98.7 98.7 12/29/18 13:00 15.0 Lungs: Other (decrease bs) Cardiovascular: S1, S2 Abdomen: Soft, Other (G TUBE) Extremities: Other (EDEMA) Skin: Warm Labs Laboratory Tests Test 12/28/18 12:05 12/28/18 19:03 12/29/18 00:25 12/29/18 05:30 Glucose (Fingerstick) 185 mg/dL (70-99) 205 mg/dL (70-99) 203 mg/dL (70-99) White Blood Count 4.2 x10^3/uL (4.0-11.0) Red Blood Count 3.09 x10^6/uL (4.30-5.70) Hemoglobin 8.1 g/dL (13.0-17.5) Hematocrit 25.7 % (39.0-53.0) Mean Corpuscular Volume 83 fL (79-100) Mean Corpuscular Hemoglobin 26 pg (25-35) Mean Corpuscular Hemoglobin Concent 32 g/dL (31-37) Red Cell Distribution Width 19.1 % (11.5-14.5) Platelet Count 174 x10^3/uL (140-400) Neutrophils (%) (Auto) 63 % (31-73) Lymphocytes (%) (Auto) 19 % (24-48) Monocytes (%) (Auto) 15 % (0-9) Eosinophils (%) (Auto) 3 % (0-3) Basophils (%) (Auto) 1 % (0-3) Neutrophils # (Auto) 2.7 x10^3uL (1.8-7.7) Lymphocytes # (Auto) 0.8 x10^3/uL (1.0-4.8) Monocytes # (Auto) 0.6 x10^3/uL (0.0-1.1) Eosinophils # (Auto) 0.1 x10^3/uL (0.0-0.7) Basophils # (Auto) 0.0 x10^3/uL (0.0-0.2) Sodium Level 137 mmol/L (136-145) Potassium Level 4.3 mmol/L (3.5-5.1) Chloride Level 102 mmol/L (98-107) Carbon Dioxide Level 37 mmol/L (21-32) Anion Gap (6-14) Blood Urea Nitrogen 14 mg/dL (8-26) Creatinine 0.3 mg/dL (0.7-1.3) Estimated GFR (Cockcroft-Gault) > 300.0 BUN/Creatinine Ratio 47 (6-20) Glucose Level 218 mg/dL (70-99) Calcium Level 7.8 mg/dL (8.5-10.1) Phosphorus Level 3.5 mg/dL (2.6-4.7) Magnesium Level 1.8 mg/dL (1.8-2.4) Total Bilirubin 0.5 mg/dL (0.2-1.0) Aspartate Amino Transf (AST/SGOT) 16 U/L (15-37) Alanine Aminotransferase (ALT/SGPT) 10 U/L (16-63) Alkaline Phosphatase 176 U/L (46-116) Total Protein 4.8 g/dL (6.4-8.2) Albumin 1.8 g/dL (3.4-5.0) Albumin/Globulin Ratio 0.6 (1.0-1.7) Lipase 115 U/L (73-393) Procalcitonin 0.17 ng/mL (0.00-0.10) Test 12/29/18 05:32 12/29/18 08:15 12/29/18 12:44 12/29/18 15:30 Glucose (Fingerstick) 210 mg/dL (70-99) 170 mg/dL (70-99) O2 Saturation 97 % (92-99) 97 % (92-99) Arterial Blood pH 7.39 (7.35-7.45) 7.41 (7.35-7.45) Arterial Blood pCO2 at Patient Temp 62 mmHg (35-46) 64 mmHg (35-46) Arterial Blood pO2 at Patient Temp 95 mmHg (75-108) 103 mmHg (75-108) Arterial Blood HCO3 37 mmol/L (21-28) 40 mmol/L (21-28) Arterial Blood Base Excess 11 mmol/L (-3-3) 13 mmol/L (-3-3) FiO2 50 100 Test 12/29/18 18:24 12/29/18 23:38 12/30/18 05:30 12/30/18 05:44 Glucose (Fingerstick) 231 mg/dL (70-99) 292 mg/dL (70-99) 240 mg/dL (70-99) White Blood Count 5.9 x10^3/uL (4.0-11.0) Red Blood Count 3.43 x10^6/uL (4.30-5.70) Hemoglobin 9.3 g/dL (13.0-17.5) Hematocrit 28.4 % (39.0-53.0) Mean Corpuscular Volume 83 fL (79-100) Mean Corpuscular Hemoglobin 27 pg (25-35) Mean Corpuscular Hemoglobin Concent 33 g/dL (31-37) Red Cell Distribution Width 19.3 % (11.5-14.5) Platelet Count 210 x10^3/uL (140-400) Neutrophils (%) (Auto) 68 % (31-73) Lymphocytes (%) (Auto) 15 % (24-48) Monocytes (%) (Auto) 14 % (0-9) Eosinophils (%) (Auto) 2 % (0-3) Basophils (%) (Auto) 1 % (0-3) Neutrophils # (Auto) 4.0 x10^3uL (1.8-7.7) Lymphocytes # (Auto) 0.9 x10^3/uL (1.0-4.8) Monocytes # (Auto) 0.8 x10^3/uL (0.0-1.1) Eosinophils # (Auto) 0.1 x10^3/uL (0.0-0.7) Basophils # (Auto) 0.0 x10^3/uL (0.0-0.2) Sodium Level 139 mmol/L (136-145) Potassium Level 4.0 mmol/L (3.5-5.1) Chloride Level 100 mmol/L (98-107) Carbon Dioxide Level 38 mmol/L (21-32) Anion Gap 1 (6-14) Blood Urea Nitrogen 15 mg/dL (8-26) Creatinine 0.6 mg/dL (0.7-1.3) Estimated GFR (Cockcroft-Gault) 138.4 BUN/Creatinine Ratio 25 (6-20) Glucose Level 268 mg/dL (70-99) Calcium Level 8.0 mg/dL (8.5-10.1) Phosphorus Level 3.5 mg/dL (2.6-4.7) Magnesium Level 1.5 mg/dL (1.8-2.4) Total Bilirubin 0.6 mg/dL (0.2-1.0) Aspartate Amino Transf (AST/SGOT) 28 U/L (15-37) Alanine Aminotransferase (ALT/SGPT) 17 U/L (16-63) Alkaline Phosphatase 184 U/L (46-116) Total Protein 5.4 g/dL (6.4-8.2) Albumin 1.9 g/dL (3.4-5.0) Albumin/Globulin Ratio 0.5 (1.0-1.7) Test 12/30/18 07:42 12/30/18 09:24 Glucose (Fingerstick) 212 mg/dL (70-99) O2 Saturation 91 % (92-99) Arterial Blood pH 7.49 (7.35-7.45) Arterial Blood pCO2 at Patient Temp 51 mmHg (35-46) Arterial Blood pO2 at Patient Temp 60 mmHg (75-108) Arterial Blood HCO3 38 mmol/L (21-28) Arterial Blood Base Excess 13 mmol/L (-3-3) FiO2 50 Laboratory Tests Test 12/29/18 12:44 12/29/18 15:30 12/29/18 18:24 12/29/18 23:38 Glucose (Fingerstick) 170 mg/dL (70-99) 231 mg/dL (70-99) 292 mg/dL (70-99) O2 Saturation 97 % (92-99) Arterial Blood pH 7.41 (7.35-7.45) Arterial Blood pCO2 at Patient Temp 64 mmHg (35-46) Arterial Blood pO2 at Patient Temp 103 mmHg (75-108) Arterial Blood HCO3 40 mmol/L (21-28) Arterial Blood Base Excess 13 mmol/L (-3-3) FiO2 100 Test 12/30/18 05:30 12/30/18 05:44 12/30/18 07:42 12/30/18 09:24 White Blood Count 5.9 x10^3/uL (4.0-11.0) Red Blood Count 3.43 x10^6/uL (4.30-5.70) Hemoglobin 9.3 g/dL (13.0-17.5) Hematocrit 28.4 % (39.0-53.0) Mean Corpuscular Volume 83 fL (79-100) Mean Corpuscular Hemoglobin 27 pg (25-35) Mean Corpuscular Hemoglobin Concent 33 g/dL (31-37) Red Cell Distribution Width 19.3 % (11.5-14.5) Platelet Count 210 x10^3/uL (140-400) Neutrophils (%) (Auto) 68 % (31-73) Lymphocytes (%) (Auto) 15 % (24-48) Monocytes (%) (Auto) 14 % (0-9) Eosinophils (%) (Auto) 2 % (0-3) Basophils (%) (Auto) 1 % (0-3) Neutrophils # (Auto) 4.0 x10^3uL (1.8-7.7) Lymphocytes # (Auto) 0.9 x10^3/uL (1.0-4.8) Monocytes # (Auto) 0.8 x10^3/uL (0.0-1.1) Eosinophils # (Auto) 0.1 x10^3/uL (0.0-0.7) Basophils # (Auto) 0.0 x10^3/uL (0.0-0.2) Sodium Level 139 mmol/L (136-145) Potassium Level 4.0 mmol/L (3.5-5.1) Chloride Level 100 mmol/L (98-107) Carbon Dioxide Level 38 mmol/L (21-32) Anion Gap 1 (6-14) Blood Urea Nitrogen 15 mg/dL (8-26) Creatinine 0.6 mg/dL (0.7-1.3) Estimated GFR (Cockcroft-Gault) 138.4 BUN/Creatinine Ratio 25 (6-20) Glucose Level 268 mg/dL (70-99) Calcium Level 8.0 mg/dL (8.5-10.1) Phosphorus Level 3.5 mg/dL (2.6-4.7) Magnesium Level 1.5 mg/dL (1.8-2.4) Total Bilirubin 0.6 mg/dL (0.2-1.0) Aspartate Amino Transf (AST/SGOT) 28 U/L (15-37) Alanine Aminotransferase (ALT/SGPT) 17 U/L (16-63) Alkaline Phosphatase 184 U/L (46-116) Total Protein 5.4 g/dL (6.4-8.2) Albumin 1.9 g/dL (3.4-5.0) Albumin/Globulin Ratio 0.5 (1.0-1.7) Glucose (Fingerstick) 240 mg/dL (70-99) 212 mg/dL (70-99) O2 Saturation 91 % (92-99) Arterial Blood pH 7.49 (7.35-7.45) Arterial Blood pCO2 at Patient Temp 51 mmHg (35-46) Arterial Blood pO2 at Patient Temp 60 mmHg (75-108) Arterial Blood HCO3 38 mmol/L (21-28) Arterial Blood Base Excess 13 mmol/L (-3-3) FiO2 50 Medications Active Scripts Medications Dose Route/Sig Max Daily Dose Days Date Category Trophamine (Amino Acids 10 %) 500 Ml Iv.soln 500 Ml IV DAILY 199912/21/18 Reported Duoneb 0.5-3(2.5) Mg/3 Ml (Albuterol/Ipratropium) 3 Ml Ampul.neb 3 Ml NEB BID 12/21/18 Reported Dulcolax (Bisacodyl) 10 Mg Supp.rect 10 Mg RC PRN DAILY PRN 12/21/18 Reported Duoneb 0.5-3(2.5) Mg/3 Ml (Albuterol/Ipratropium) 3 Ml Ampul.neb 3 Ml NEB PRN Q4HRS PRN 12/21/18 Reported Atorvastatin Calcium 40 Mg Tablet 1 Tab PO QHS 12/21/18 Reported Simethicone 80 Mg Tab.chew 80 Mg PO PRN TID PRN 12/21/18 Reported Humalog (Insulin Lispro) 100 Unit/1 Ml Vial 0 SQ Q6HRS 12/21/18 Reported Ondansetron Hcl 4 Mg/2 Ml Vial (Ondansetron Hcl/Pf) 4 Mg/2 Ml Vial 4 Mg IJ PRN Q6HRS PRN 12/21/18 Reported Actos (Pioglitazone Hcl) 15 Mg Tablet 1 Tab PO DAILY 12/21/18 Reported Tylenol Extra Strength (Acetaminophen) 500 Mg Tablet 1,000 Mg PO PRN Q6HRS PRN 12/21/18 Reported Senokot-S Tablet (Sennosides/Docusate Sodium) 1 Each Tablet 1 Tab PO BID 12/21/18 Reported Vitamin D3 (Cholecalciferol (Vitamin D3)) 1,000 Unit Tablet 1 Tab PO DAILY 12/21/18 Reported Carvedilol (Carvedilol) 12.5 Mg Tablet 12.5 Mg PO BIDWMEALS 12/21/18 Reported Comments CXR 12/30 IMPRESSION: [id number] effusions with adjacent infiltrates. No change. Impression . 1. Expected hypoxemic respiratory failure, status post open pancreatic pseudocyst gastrostomy, open cholecystectomy, G-tube placement. 2. History of necrotizing pancreatitis. 3. Abnormal x-ray c/w basal effusions/ Mild CHF 4. Possible sepsis. 5. Coronary artery disease, status post coronary artery bypass grafting. 6. History of alcoholism. 7. Protein malnutrition, present upon admission. 8. Acute blood loss anemia, expected. S/P TRANSFUSIONS Plan . OFF SEDATION/ NOT AWAKE YET WEAN FIO2 AND PEEP SLOWLY TRIAL WHEN HE AWAKENS MAKING MILD PROGRESS OFF PRESSORS D/W RN ABG NOTED TPN FOR NUTRITION DVT PROPH FOLLOW CONSULTANTS INPUT EXTRA DIURESIS FOLLOW CXR D/W DR BALDERAS AND DR CASE CCT 30 STEVIE WHITE MD Dec 30, 2018 11:37
[2018-12-30] MEDS ORDERED: INSULIN LISPRO 300 UNITS/3 ML INSULN.PEN. SQ SCH (12:00)
--- NOTE | 2018-12-30 12:13 | PDOC ---
Renal-Progress Notes Subjective Notes Notes INTUBATED History of Present Illness Hx of present illness STABLE Vitals Vitals Vital Signs Date Time Temp Pulse Resp B/P (MAP) Pulse Ox O2 Delivery O2 Flow Rate FiO2 12/30/18 09:44 92 Ventilator 12/30/18 06:00 96 25 121/64 (83) 12/30/18 04:00 98.7 98.7 12/29/18 13:00 15.0 Weight Weight [ ] I.O. Intake and Output Intake and Output 12/30/18 07:00 Intake Total 2564 ml Output Total 6920 ml Balance -4356 ml IV Total 2441 ml Tube Feeding 123 ml Output Urine Total 5855 ml Drainage Total 1065 ml Labs Labs Laboratory Tests Test 12/29/18 12:44 12/29/18 15:30 12/29/18 18:24 12/29/18 23:38 Glucose (Fingerstick) 170 mg/dL (70-99) 231 mg/dL (70-99) 292 mg/dL (70-99) O2 Saturation 97 % (92-99) Arterial Blood pH 7.41 (7.35-7.45) Arterial Blood pCO2 at Patient Temp 64 mmHg (35-46) Arterial Blood pO2 at Patient Temp 103 mmHg (75-108) Arterial Blood HCO3 40 mmol/L (21-28) Arterial Blood Base Excess 13 mmol/L (-3-3) FiO2 100 Test 12/30/18 05:30 12/30/18 05:44 12/30/18 07:42 12/30/18 09:24 White Blood Count 5.9 x10^3/uL (4.0-11.0) Red Blood Count 3.43 x10^6/uL (4.30-5.70) Hemoglobin 9.3 g/dL (13.0-17.5) Hematocrit 28.4 % (39.0-53.0) Mean Corpuscular Volume 83 fL (79-100) Mean Corpuscular Hemoglobin 27 pg (25-35) Mean Corpuscular Hemoglobin Concent 33 g/dL (31-37) Red Cell Distribution Width 19.3 % (11.5-14.5) Platelet Count 210 x10^3/uL (140-400) Neutrophils (%) (Auto) 68 % (31-73) Lymphocytes (%) (Auto) 15 % (24-48) Monocytes (%) (Auto) 14 % (0-9) Eosinophils (%) (Auto) 2 % (0-3) Basophils (%) (Auto) 1 % (0-3) Neutrophils # (Auto) 4.0 x10^3uL (1.8-7.7) Lymphocytes # (Auto) 0.9 x10^3/uL (1.0-4.8) Monocytes # (Auto) 0.8 x10^3/uL (0.0-1.1) Eosinophils # (Auto) 0.1 x10^3/uL (0.0-0.7) Basophils # (Auto) 0.0 x10^3/uL (0.0-0.2) Sodium Level 139 mmol/L (136-145) Potassium Level 4.0 mmol/L (3.5-5.1) Chloride Level 100 mmol/L (98-107) Carbon Dioxide Level 38 mmol/L (21-32) Anion Gap 1 (6-14) Blood Urea Nitrogen 15 mg/dL (8-26) Creatinine 0.6 mg/dL (0.7-1.3) Estimated GFR (Cockcroft-Gault) 138.4 BUN/Creatinine Ratio 25 (6-20) Glucose Level 268 mg/dL (70-99) Calcium Level 8.0 mg/dL (8.5-10.1) Phosphorus Level 3.5 mg/dL (2.6-4.7) Magnesium Level 1.5 mg/dL (1.8-2.4) Total Bilirubin 0.6 mg/dL (0.2-1.0) Aspartate Amino Transf (AST/SGOT) 28 U/L (15-37) Alanine Aminotransferase (ALT/SGPT) 17 U/L (16-63) Alkaline Phosphatase 184 U/L (46-116) Total Protein 5.4 g/dL (6.4-8.2) Albumin 1.9 g/dL (3.4-5.0) Albumin/Globulin Ratio 0.5 (1.0-1.7) Glucose (Fingerstick) 240 mg/dL (70-99) 212 mg/dL (70-99) O2 Saturation 91 % (92-99) Arterial Blood pH 7.49 (7.35-7.45) Arterial Blood pCO2 at Patient Temp 51 mmHg (35-46) Arterial Blood pO2 at Patient Temp 60 mmHg (75-108) Arterial Blood HCO3 38 mmol/L (21-28) Arterial Blood Base Excess 13 mmol/L (-3-3) FiO2 50 Micro Micro Microbiology 12/27/18 - Final, Resulted 12/27/18 - Final, Resulted 12/27/18 - Final, Resulted 12/27/18 Gram Stain Evaluation - Final, Resulted 12/27/18 Sputum Culture, Resulted Pending 12/22/18 Anaerobic/Aerobic Culture - Final, Complete 12/22/18 Anaerobic Culture Result 1 (MELONY) - Final, Complete 12/22/18 Aerobic Culture - Final, Complete 12/22/18 Aerobic Culture Result 1 (MELONY) - Final, Complete 12/22/18 Gram Stain - Final, Complete 12/22/18 Gram Stain Result 1 (MELONY) - Final, Complete 12/22/18 Gram Stain Result 2 (MELONY) - Final, Complete Review of Systems Constitutional: yes: other (UNABLE TO OBTAIN) Physical Exam General Appearance: other (SEDATED) Skin: warm Respiratory: decreased breath sounds Heart: S1S2, RRR Abdomen: soft, distension, other (HYPOACTIVE) Genitourinary: bladder flat Extremities: pulses present, edema Neurology: other (sedated) Assessment Assessment IMP PANCREATIC PSEUDOCYST RESECTION MALNUTRITION EDEMA DUE TO 3RD SPACING LOW K AND MAG-BETTER DM II ETOH ABUSE HX EDEMA/ANASARCA PLAN SCHEDULED IV LASIX CONT TPN FOR NOW CONT WITH K AND MAG REPLACEMENT PROTOCOL ANTIBIOTICS VENT SUPPORT SUPPORTIVE CARE PRESSORS NEEDED D/W DR WHITE WILL FOLLOW SARAHY BALDERAS MD Dec 30, 2018 12:13
[2018-12-30] MEDS: IV NORMAL SALINE 1000ML BAG 1,000 ML IV SCH (12:51)
[2018-12-30] MEDS: TPN PER PHARMACY MC PRN (14:45)
--- NOTE | 2018-12-30 16:20 | NUR ---
SS following up with discharge planning. Clinical updates phoned and faxed to [facility], ; fax [phone]. SS will continue to follow for discharge planning.
--- NOTE | 2018-12-30 16:20 | NUR ---
Pharmacy TPN Dosing Note S: JUSTIN OLSEN is a 58 year old M Currently receiving Central Continuous TPN started prior to admission B:Pertinent PMH: PANCREATITIS; Correction TPN from [facility] Height: 6 feet, 0 inches Weight: 105.685330 kg Current diet: NPO LABS: Sodium: 139 Potassium: 4 Chloride: 100 Calcium: 8.0 Corrected Calcium: 9.68 Magnesium: 1.5 CO2: 38 SCr: 0.6 Glucose: 212-292 Albumin: 1.9 AST: 28 ALT: 17 TPN FORMULA: TPN TYPE: Central Continuous AMINO ACIDS: 100 gm DEXTROSE: 375 gm LIPIDS: 30 gm SODIUM CHLORIDE: 110 mEq SODIUM ACETATE: 12 mEq SODIUM PHOSPHATE: - mmol POTASSIUM CHLORIDE: 60 mEq POTASSIUM ACETATE: - mEq POTASSIUM PHOSPHATE: 20 mmol MAGNESIUM: 28 mEq CALCIUM: 9.3 mEq INSULIN: 100 units MULTIPLE VITAMIN: 10 ml TRACE ELEMENTS: 1 ml(s) TPN PLAN: -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 SCr increased to 0.6 from 0.3, furosemide now scheduled q8 hours and tube feeds to be re-started today at low rate. For this reason will increase Mag slightly to 28 mEq -BG elevated today, 9 units SSI given today so far in addition to increased insulin in TPN of 90 units. Also tube feeds re-started today. Dr. Cha requested insulin be increased to 100 units today in TPN. -BMP, Mag and Phos ordered for 12/31/18 R: Continue TPN with adjustment to insulin per Dr. Cha and slight increase in Mag Will monitor electrolytes, glucose, and tolerance to TPN. JENNIFER COSTA, [facility], 12/30/18 [id number]
--- NOTE | 2018-12-30 17:16 | PDOC ---
IM PROGRESS NOTES- Subjective Subjective Patient is sedated and unable to do systems review. Objective Vitals Vital Signs Date Time Temp Pulse Resp B/P (MAP) Pulse Ox O2 Delivery O2 Flow Rate FiO2 12/30/18 16:34 95 Ventilator 12/30/18 16:00 99 25 144/70 (94) 12/30/18 15:09 15.0 12/30/18 07:00 98.7 98.7 Input & Output Intake and Output 12/30/18 07:00 Intake Total 2564 ml Output Total 6920 ml Balance -4356 ml IV Total 2441 ml Tube Feeding 123 ml Output Urine Total 5855 ml Drainage Total 1065 ml Physical Exam Physical Exam GENERAL: The patient is sedated on mechanical ventilation. Tracheostomy tube in place, eyes closed. HEENT: Partial exam. No other changes. LUNGS: Decreased breath sounds at bases. CARDIOVASCULAR: S1, S2 regular. ABDOMEN: The patient is status post surgery with dressing in place. Bowel sounds hyperactive. EXTREMITIES: 2-3 + edema. The patient also has anasarca. CENTRAL NERVOUS SYSTEM: Sedated. Labs Laboratory Tests Test 12/28/18 19:03 12/29/18 00:25 12/29/18 05:30 12/29/18 05:32 Glucose (Fingerstick) 205 mg/dL (70-99) 203 mg/dL (70-99) 210 mg/dL (70-99) White Blood Count 4.2 x10^3/uL (4.0-11.0) Red Blood Count 3.09 x10^6/uL (4.30-5.70) Hemoglobin 8.1 g/dL (13.0-17.5) Hematocrit 25.7 % (39.0-53.0) Mean Corpuscular Volume 83 fL (79-100) Mean Corpuscular Hemoglobin 26 pg (25-35) Mean Corpuscular Hemoglobin Concent 32 g/dL (31-37) Red Cell Distribution Width 19.1 % (11.5-14.5) Platelet Count 174 x10^3/uL (140-400) Neutrophils (%) (Auto) 63 % (31-73) Lymphocytes (%) (Auto) 19 % (24-48) Monocytes (%) (Auto) 15 % (0-9) Eosinophils (%) (Auto) 3 % (0-3) Basophils (%) (Auto) 1 % (0-3) Neutrophils # (Auto) 2.7 x10^3uL (1.8-7.7) Lymphocytes # (Auto) 0.8 x10^3/uL (1.0-4.8) Monocytes # (Auto) 0.6 x10^3/uL (0.0-1.1) Eosinophils # (Auto) 0.1 x10^3/uL (0.0-0.7) Basophils # (Auto) 0.0 x10^3/uL (0.0-0.2) Sodium Level 137 mmol/L (136-145) Potassium Level 4.3 mmol/L (3.5-5.1) Chloride Level 102 mmol/L (98-107) Carbon Dioxide Level 37 mmol/L (21-32) Anion Gap (6-14) Blood Urea Nitrogen 14 mg/dL (8-26) Creatinine 0.3 mg/dL (0.7-1.3) Estimated GFR (Cockcroft-Gault) > 300.0 BUN/Creatinine Ratio 47 (6-20) Glucose Level 218 mg/dL (70-99) Calcium Level 7.8 mg/dL (8.5-10.1) Phosphorus Level 3.5 mg/dL (2.6-4.7) Magnesium Level 1.8 mg/dL (1.8-2.4) Total Bilirubin 0.5 mg/dL (0.2-1.0) Aspartate Amino Transf (AST/SGOT) 16 U/L (15-37) Alanine Aminotransferase (ALT/SGPT) 10 U/L (16-63) Alkaline Phosphatase 176 U/L (46-116) Total Protein 4.8 g/dL (6.4-8.2) Albumin 1.8 g/dL (3.4-5.0) Albumin/Globulin Ratio 0.6 (1.0-1.7) Lipase 115 U/L (73-393) Procalcitonin 0.17 ng/mL (0.00-0.10) Test 12/29/18 08:15 12/29/18 12:44 12/29/18 15:30 12/29/18 18:24 O2 Saturation 97 % (92-99) 97 % (92-99) Arterial Blood pH 7.39 (7.35-7.45) 7.41 (7.35-7.45) Arterial Blood pCO2 at Patient Temp 62 mmHg (35-46) 64 mmHg (35-46) Arterial Blood pO2 at Patient Temp 95 mmHg (75-108) 103 mmHg (75-108) Arterial Blood HCO3 37 mmol/L (21-28) 40 mmol/L (21-28) Arterial Blood Base Excess 11 mmol/L (-3-3) 13 mmol/L (-3-3) FiO2 50 100 Glucose (Fingerstick) 170 mg/dL (70-99) 231 mg/dL (70-99) Test 12/29/18 23:38 12/30/18 05:30 12/30/18 05:44 12/30/18 07:42 Glucose (Fingerstick) 292 mg/dL (70-99) 240 mg/dL (70-99) 212 mg/dL (70-99) White Blood Count 5.9 x10^3/uL (4.0-11.0) Red Blood Count 3.43 x10^6/uL (4.30-5.70) Hemoglobin 9.3 g/dL (13.0-17.5) Hematocrit 28.4 % (39.0-53.0) Mean Corpuscular Volume 83 fL (79-100) Mean Corpuscular Hemoglobin 27 pg (25-35) Mean Corpuscular Hemoglobin Concent 33 g/dL (31-37) Red Cell Distribution Width 19.3 % (11.5-14.5) Platelet Count 210 x10^3/uL (140-400) Neutrophils (%) (Auto) 68 % (31-73) Lymphocytes (%) (Auto) 15 % (24-48) Monocytes (%) (Auto) 14 % (0-9) Eosinophils (%) (Auto) 2 % (0-3) Basophils (%) (Auto) 1 % (0-3) Neutrophils # (Auto) 4.0 x10^3uL (1.8-7.7) Lymphocytes # (Auto) 0.9 x10^3/uL (1.0-4.8) Monocytes # (Auto) 0.8 x10^3/uL (0.0-1.1) Eosinophils # (Auto) 0.1 x10^3/uL (0.0-0.7) Basophils # (Auto) 0.0 x10^3/uL (0.0-0.2) Sodium Level 139 mmol/L (136-145) Potassium Level 4.0 mmol/L (3.5-5.1) Chloride Level 100 mmol/L (98-107) Carbon Dioxide Level 38 mmol/L (21-32) Anion Gap 1 (6-14) Blood Urea Nitrogen 15 mg/dL (8-26) Creatinine 0.6 mg/dL (0.7-1.3) Estimated GFR (Cockcroft-Gault) 138.4 BUN/Creatinine Ratio 25 (6-20) Glucose Level 268 mg/dL (70-99) Calcium Level 8.0 mg/dL (8.5-10.1) Phosphorus Level 3.5 mg/dL (2.6-4.7) Magnesium Level 1.5 mg/dL (1.8-2.4) Total Bilirubin 0.6 mg/dL (0.2-1.0) Aspartate Amino Transf (AST/SGOT) 28 U/L (15-37) Alanine Aminotransferase (ALT/SGPT) 17 U/L (16-63) Alkaline Phosphatase 184 U/L (46-116) Total Protein 5.4 g/dL (6.4-8.2) Albumin 1.9 g/dL (3.4-5.0) Albumin/Globulin Ratio 0.5 (1.0-1.7) Test 12/30/18 09:24 12/30/18 12:46 O2 Saturation 91 % (92-99) Arterial Blood pH 7.49 (7.35-7.45) Arterial Blood pCO2 at Patient Temp 51 mmHg (35-46) Arterial Blood pO2 at Patient Temp 60 mmHg (75-108) Arterial Blood HCO3 38 mmol/L (21-28) Arterial Blood Base Excess 13 mmol/L (-3-3) FiO2 50 Glucose (Fingerstick) 234 mg/dL (70-99) Laboratory Tests Test 12/29/18 18:24 12/29/18 23:38 12/30/18 05:30 12/30/18 05:44 Glucose (Fingerstick) 231 mg/dL (70-99) 292 mg/dL (70-99) 240 mg/dL (70-99) White Blood Count 5.9 x10^3/uL (4.0-11.0) Red Blood Count 3.43 x10^6/uL (4.30-5.70) Hemoglobin 9.3 g/dL (13.0-17.5) Hematocrit 28.4 % (39.0-53.0) Mean Corpuscular Volume 83 fL (79-100) Mean Corpuscular Hemoglobin 27 pg (25-35) Mean Corpuscular Hemoglobin Concent 33 g/dL (31-37) Red Cell Distribution Width 19.3 % (11.5-14.5) Platelet Count 210 x10^3/uL (140-400) Neutrophils (%) (Auto) 68 % (31-73) Lymphocytes (%) (Auto) 15 % (24-48) Monocytes (%) (Auto) 14 % (0-9) Eosinophils (%) (Auto) 2 % (0-3) Basophils (%) (Auto) 1 % (0-3) Neutrophils # (Auto) 4.0 x10^3uL (1.8-7.7) Lymphocytes # (Auto) 0.9 x10^3/uL (1.0-4.8) Monocytes # (Auto) 0.8 x10^3/uL (0.0-1.1) Eosinophils # (Auto) 0.1 x10^3/uL (0.0-0.7) Basophils # (Auto) 0.0 x10^3/uL (0.0-0.2) Sodium Level 139 mmol/L (136-145) Potassium Level 4.0 mmol/L (3.5-5.1) Chloride Level 100 mmol/L (98-107) Carbon Dioxide Level 38 mmol/L (21-32) Anion Gap 1 (6-14) Blood Urea Nitrogen 15 mg/dL (8-26) Creatinine 0.6 mg/dL (0.7-1.3) Estimated GFR (Cockcroft-Gault) 138.4 BUN/Creatinine Ratio 25 (6-20) Glucose Level 268 mg/dL (70-99) Calcium Level 8.0 mg/dL (8.5-10.1) Phosphorus Level 3.5 mg/dL (2.6-4.7) Magnesium Level 1.5 mg/dL (1.8-2.4) Total Bilirubin 0.6 mg/dL (0.2-1.0) Aspartate Amino Transf (AST/SGOT) 28 U/L (15-37) Alanine Aminotransferase (ALT/SGPT) 17 U/L (16-63) Alkaline Phosphatase 184 U/L (46-116) Total Protein 5.4 g/dL (6.4-8.2) Albumin 1.9 g/dL (3.4-5.0) Albumin/Globulin Ratio 0.5 (1.0-1.7) Test 12/30/18 07:42 12/30/18 09:24 12/30/18 12:46 Glucose (Fingerstick) 212 mg/dL (70-99) 234 mg/dL (70-99) O2 Saturation 91 % (92-99) Arterial Blood pH 7.49 (7.35-7.45) Arterial Blood pCO2 at Patient Temp 51 mmHg (35-46) Arterial Blood pO2 at Patient Temp 60 mmHg (75-108) Arterial Blood HCO3 38 mmol/L (21-28) Arterial Blood Base Excess 13 mmol/L (-3-3) FiO2 50 Meds Current Medications Albumin Human 100 ml @ 100 mls/hr 1X ONCE IV Last administered on 12/30/18at 11 :57; Start 12/30/18 at 10:30; Stop 12/30/18 at 11:29; Status DC Bisacodyl (Dulcolax Supp) 10 mg PRN DAILY PRN [place] CONSTIPATION Last administered on 12/30/18at 09:06; Start 12/30/18 at 09:00 Dextrose (Dextrose 50%-Water Syringe) 12.5 gm PRN Q15MIN PRN IV SEE COMMENTS; Start 12/30/18 at 10:30 Insulin Human Lispro (HumaLOG) 0-7 UNITS TIDWMEALS SQ ; Start 12/30/18 at 12:00; Status UNV Magnesium Sulfate 50 ml @ 25 mls/hr 1X ONCE IV Last administered on 12/30/18at 08:48; Start 12/30/18 at 08:30; Stop 12/30/18 at 10:29; Status DC Magnesium Sulfate 50 ml @ 25 mls/hr 1X ONCE IV Last administered on 12/30/18at 12:50; Start 12/30/18 at 12:15; Stop 4/3/19 at 14:14; Status DC Sodium Chloride 110 meq/Sodium Acetate 12 meq/ Potassium Chloride 60 meq/ Potassium Phosphate 20 mmol/ Magnesium Sulfate 25 meq/Calcium Gluconate 9.3 meq / Multivitamins 10 ml/Chromium/ Copper/Manganese/ Seleni/Zn 1 ml/ Insulin Human Regular 90 unit/ Total Parenteral Nutrition/Amino Acids/Dextro... 1,800 ml @ 75 mls/hr TPN CONT IV Last administered on 12/29/18at 22:17; Start 12/29/18 at 22 :00; Stop 12/30/18 at 21:59 Sodium Chloride 110 meq/Sodium Acetate 12 meq/ Potassium Chloride 60 meq/ Potassium Phosphate 20 mmol/ Magnesium Sulfate 28 meq/Calcium Gluconate 9.3 meq / Multivitamins 10 ml/Chromium/ Copper/Manganese/ Seleni/Zn 1 ml/ Insulin Human Regular 100 unit/ Total Parenteral Nutrition/Amino Acids/Dextro... 1,800 ml @ 75 mls/hr TPN CONT IV ; Start 12/30/18 at 22:00; Stop 12/31/18 at 21:59 Assessment Assessment 1. Acute respiratory failure. 2. Acute hypotension, on dopamine. The patient's urine output is stable, but the patient has a significant fluid retention due to third spacing. 3. Acute pancreatitis with pseudocyst. 4. Systolic congestive heart failure. 5. Coronary artery disease, history of coronary artery bypass graft x 5. 6. Acute metabolic encephalopathy. 7. History of fall with nasal fracture. 8. History of atrial fibrillation. 9. Hyperlipidemia. 10. Severe protein-calorie malnutrition. 11. Anemia. 12. Obesity hypoventilation syndrome, with likely obstructive sleep apnea, has been on BiPAP at night. PLAN: The patient is retaining significant amount of fluids, so I will give him 1 amp of 25% albumin along with 1 unit of packed red cells as well as Lasix. Continue IV dopamine to maintain systolic blood pressure. Monitor urine output. I ordered 1 unit of packed red cells because of significant blood loss yesterday along with significant hypotension with his coronary artery disease, congestive heart failure and third spacing due to hypotension even though his hemoglobin is 7.5. We will consult Dr. Moralez for cardiology evaluation and management, Dr. Cornejo for infectious disease evaluation and management and Dr. Romero has been consulted for pulmonary evaluation and management. Continue management of the mechanical ventilation. Continue to hold some of the previous medications. We will start TPN this evening and continue to monitor blood sugars every 6 hours and regular insulin to TPN and also start him on IV Protonix. Prognosis of this patient is very poor. For details, please refer to the orders. I will also consult Dr. Giraldo for GI evaluation and management. Fluid retention- ,give 1 amp of the IV albumin as well as 40 mg of IV Lasix. Consult Dr. Ken for management of fluid retention. He has severe anasarca.He has decreased drainage in the MISTY drain. He put out a lot of the urine yesterday and has lost 4 pounds.currently is on IV Lasix 3 times a day. Severe protein calorie malnutrition- continue TPN. Albumin has increased to 1.8. Give IV albumin followed by Lasix. Patient does not have bowel sounds. Continue IV TPN. Diabetes mellitus type 2- not controlled. Continue regular insulin in TPN as well as sliding scale insulin. Hypokalemia-better. Hypomagnesemia- replaced. Discussed with patient's brother Weston. Hypotension- resolved off dopamine . Coronary artery disease- echocardiogram shows ejection fraction of 60%. Acute cholecystitis off. IV Zosyn. On Merrem Anemia- hemoglobin is 9.[address] Romero.he will wean off sedation.patient is on Versed drip so it may take some time for him to wake up. Plan Plan For more details regarding further plans, please refer to the orders. REHANA CASE MD Dec 30, 2018 17:16
--- NOTE | 2018-12-30 18:19 | NUR ---
Patient off sedation for duration of shift. Bowel sounds present with BM X2 today. Patient TPN dosing changed by pharmacy per . Tube feed to increase per RD at request of Dr. Cook. Family made aware of patient status. Will continue to monitor.
[2018-12-30] MEDS ORDERED: TOTAL PARENTERAL NUTRITION IV SCH ×12 (22:00)
[2018-12-30] MEDS ORDERED: [UNRECOGNIZED DRUG - OTHER] IV SCH ×12 (22:00)
[2018-12-30] MEDS ORDERED: DEXTROSE 70% IV SCH ×12 (22:00)
[2018-12-30] MEDS ORDERED: AMINO ACID IV SCH ×12 (22:00)
[2018-12-31] VITALS (24 sets, daily range): BP systolic 118–180; BP diastolic 60–83
[2018-12-31] MEDS: FUROSEMIDE 40 MG/4 ML VIAL. IVP SCH ×3 (04:18→20:01)
[2018-12-31] MEDS: MEROPENEM 500 MG in IV NORMAL SALINE 50ML 50 ML IV SCH ×4 (05:19→23:52)
[2018-12-31 05:46] LABS: BASO % 1 % (0-3); EOS # 0.1 x10^3/uL (0.0-0.7); EOS % 2 % (0-3); HEMATOCRIT 25.2 % (39.0-53.0); HEMOGLOBIN 8.2 g/dL (13.0-17.5); LYMPH # 0.9 x10^3/uL (1.0-4.8); LYMPH % 15 % (24-48); MEAN CORPUSCULAR HEMOGLOBIN 27 pg (25-35); MEAN CORPUSCULAR HGB CONC 33 g/dL (31-37); MEAN CORPUSCULAR VOLUME 83 fL (79-100); MONO # 0.8 x10^3/uL (0.0-1.1); MONO % 14 % (0-9); NEUT % 68 % (31-73); PLATELET COUNT 207 x10^3/uL (140-400); RED BLOOD COUNT 3.04 x10^6/uL (4.30-5.70); RED CELL DISTRIBUTION WIDTH 18.9 % (11.5-14.5); WHITE BLOOD COUNT 5.9 x10^3/uL (4.0-11.0)
[2018-12-31 06:07] LABS: ALBUMIN 2.1 g/dL (3.4-5.0); ALBUMIN/GLOBULIN RATIO 0.6 (1.0-1.7); CALCIUM 8.1 mg/dL (8.5-10.1); CREATININE 0.5 mg/dL (0.7-1.3); GFR 170.8; MAGNESIUM 1.8 mg/dL (1.8-2.4); PHOSPHORUS 3.4 mg/dL (2.6-4.7); POTASSIUM 3.5 mmol/L (3.5-5.1); TOTAL BILIRUBIN 0.6 mg/dL (0.2-1.0); TOTAL PROTEIN 5.5 g/dL (6.4-8.2)
[2018-12-31] MEDS: PANTOPRAZOLE IV PUSH 40 MG VIAL. IVP SCH (07:16)
[2018-12-31] MEDS: INSULIN LISPRO 300 UNITS/3 ML INSULN.PEN. SQ SCH ×4 (07:18→23:55)
--- NOTE | 2018-12-31 07:44 | RAD ---
Portable chest, 12/31/2018: HISTORY: Respiratory failure Comparison is made yesterday study. The ET tube tip lies well above the juan. A right PICC extends into the inferior aspect of the superior vena cava. The heart is enlarged. There are moderate ongoing bibasilar opacities compatible with pleural fluid and underlying atelectasis/infiltrate. These opacities appear unchanged. There is no evidence of pneumothorax. No new abnormality is seen. IMPRESSION: No significant change since yesterday's study. Electronically signed by: Michoacano Bruce MD (12/31/2018 7:41 AM) [facility]
[2018-12-31 07:57] LABS: BASE EXCESS ABG 13 mmol/L (-3-3); HCO3 ABG 38 mmol/L (21-28); PCO2 ABG 49 mmHg (35-46); PO2 ABG 79 mmHg (75-108); SAT O2 ABG 96 % (92-99)
[2018-12-31 08:06] LABS: FIO2 ABG 50
[2018-12-31] MEDS ORDERED: ACETAMINOPHEN 650 MG SUPP.RECT. PR PRN (08:15)
--- NOTE | 2018-12-31 08:16 | PDOC ---
Infectious Disease Note Subjective Subjective Intubated/lightly sedated ROS ROS unable to obtain Vital Sign Vital Signs Vital Signs Date Time Temp Pulse Resp B/P (MAP) Pulse Ox O2 Delivery O2 Flow Rate FiO2 12/31/18 07:33 95 Ventilator 12/31/18 06:00 101 22 155/77 (103) 12/31/18 04:00 99.6 99.6 12/30/18 15:09 15.0 Physical Exam PHYSICAL EXAM GENERAL: Intubated, sedated lightly HEENT: PERRL, ETT eyes open LUNGS: Mechanical breath sounds . HEART: S1 and S2. No gallops or murmurs. ABDOMEN: Obese, soft, BS quiet, MISTY - clean but dislodged G-tube in place, midline incision well-approx, blister - better. min erythema : Pepe in place, scrotal swelling EXTREMITIES: Generalized edema. DERMATOLOGICAL: Multiple tattoos. Warm and dry. No generalized rash. CENTRAL NERVOUS SYSTEM: Sedated lightly and intubated. RUE-PICC ( POA) Labs Lab Laboratory Tests Test 12/30/18 09:24 12/30/18 12:46 12/30/18 16:58 12/30/18 23:57 O2 Saturation 91 % (92-99) Arterial Blood pH 7.49 (7.35-7.45) Arterial Blood pCO2 at Patient Temp 51 mmHg (35-46) Arterial Blood pO2 at Patient Temp 60 mmHg (75-108) Arterial Blood HCO3 38 mmol/L (21-28) Arterial Blood Base Excess 13 mmol/L (-3-3) FiO2 50 Glucose (Fingerstick) 234 mg/dL (70-99) 212 mg/dL (70-99) 267 mg/dL (70-99) Test 12/31/18 05:24 12/31/18 06:13 12/31/18 07:45 White Blood Count 5.9 x10^3/uL (4.0-11.0) Red Blood Count 3.04 x10^6/uL (4.30-5.70) Hemoglobin 8.2 g/dL (13.0-17.5) Hematocrit 25.2 % (39.0-53.0) Mean Corpuscular Volume 83 fL (79-100) Mean Corpuscular Hemoglobin 27 pg (25-35) Mean Corpuscular Hemoglobin Concent 33 g/dL (31-37) Red Cell Distribution Width 18.9 % (11.5-14.5) Platelet Count 207 x10^3/uL (140-400) Neutrophils (%) (Auto) 68 % (31-73) Lymphocytes (%) (Auto) 15 % (24-48) Monocytes (%) (Auto) 14 % (0-9) Eosinophils (%) (Auto) 2 % (0-3) Basophils (%) (Auto) 1 % (0-3) Neutrophils # (Auto) 4.0 x10^3uL (1.8-7.7) Lymphocytes # (Auto) 0.9 x10^3/uL (1.0-4.8) Monocytes # (Auto) 0.8 x10^3/uL (0.0-1.1) Eosinophils # (Auto) 0.1 x10^3/uL (0.0-0.7) Basophils # (Auto) 0.0 x10^3/uL (0.0-0.2) Sodium Level 142 mmol/L (136-145) Potassium Level 3.5 mmol/L (3.5-5.1) Chloride Level 100 mmol/L (98-107) Carbon Dioxide Level 40 mmol/L (21-32) Anion Gap 2 (6-14) Blood Urea Nitrogen 16 mg/dL (8-26) Creatinine 0.5 mg/dL (0.7-1.3) Estimated GFR (Cockcroft-Gault) 170.8 BUN/Creatinine Ratio 32 (6-20) Glucose Level 267 mg/dL (70-99) Calcium Level 8.1 mg/dL (8.5-10.1) Phosphorus Level 3.4 mg/dL (2.6-4.7) Magnesium Level 1.8 mg/dL (1.8-2.4) Total Bilirubin 0.6 mg/dL (0.2-1.0) Aspartate Amino Transf (AST/SGOT) 32 U/L (15-37) Alanine Aminotransferase (ALT/SGPT) 20 U/L (16-63) Alkaline Phosphatase 166 U/L (46-116) Total Protein 5.5 g/dL (6.4-8.2) Albumin 2.1 g/dL (3.4-5.0) Albumin/Globulin Ratio 0.6 (1.0-1.7) Glucose (Fingerstick) 261 mg/dL (70-99) O2 Saturation 96 % (92-99) Arterial Blood pH 7.50 (7.35-7.45) Arterial Blood pCO2 at Patient Temp 49 mmHg (35-46) Arterial Blood pO2 at Patient Temp 79 mmHg (75-108) Arterial Blood HCO3 38 mmol/L (21-28) Arterial Blood Base Excess 13 mmol/L (-3-3) FiO2 50 Micro Microbiology 12/22/18 Anaerobic/Aerobic Culture - Preliminary, Resulted 12/22/18 Anaerobic Culture Result 1 (MELONY) - Preliminary, Resulted 12/22/18 Aerobic Culture - Final, Resulted 12/22/18 Aerobic Culture Result 1 (MELONY) - Final, Resulted 12/22/18 Gram Stain - Final, Resulted 12/22/18 Gram Stain Result 1 (MELONY) - Final, Resulted 12/22/18 Gram Stain Result 2 (MELONY) - Final, Resulted Objective Assessment Low grade temps - MISTY dislodged. Procalcitonin mild elevation Severe cholecystitis, status post cholecystectomy, 12/22/2018. Large pancreatic pseudocyst, status post open pancreatic pseudocyst gastrostomy , open cholecystectomy and gastrostomy tube placement on 12/22/2018. Leukopenia - better Anemia, likely postop blood loss.S/P PRBC transfusion, 12/25 Acute respiratory failure postop intubated. History of heavy alcohol dependence. Systolic congestive heart failure. Coronary artery disease, status post coronary artery bypass graft. Acute metabolic encephalopathy. History of fall with nasal fracture. History of atrial fibrillation. Severe protein-calorie malnutrition. Obesity hypoventilation syndrome, likely obstructive sleep apnea, has bilevel positive airway pressure at night. Plan Plan of Care ? If low grade temps from MISTY dislodge Asked Nursing to contact surgery Obtain blood cults Cont Merrem since 12/25 begin Vanc/Micafungin May need PICC removed F/u sputum cult - neg so far Monitor labs/temp Supportive care. Critically ill D/w nursing CHET WOODSON MD Dec 31, 2018 08:16
[2018-12-31] MEDS ORDERED: VANCOMYCIN 2 GM in IV NORMAL SALINE 500ML BAG 500 ML IV ONE (09:00)
[2018-12-31] MEDS: MICAFUNGIN 100 MG in IV DEXTROSE 5% 100ML 100 ML IV SCH (09:29)
--- NOTE | 2018-12-31 09:59 | PDOC ---
Objective: Objective: Reviewed w/ RN - MISTY dislodged/removed, stooling, tolerating tube feeds, continues off sedation. Vital Signs: Vital Signs Date Time Temp Pulse Resp B/P (MAP) Pulse Ox O2 Delivery O2 Flow Rate FiO2 12/31/18 09:24 95 Ventilator 12/31/18 06:00 101 22 155/77 (103) 12/31/18 04:00 99.6 99.6 12/30/18 15:09 15.0 Labs: Laboratory Tests Test 12/30/18 12:46 12/30/18 16:58 12/30/18 23:57 12/31/18 05:24 Glucose (Fingerstick) 234 mg/dL 212 mg/dL 267 mg/dL White Blood Count 5.9 x10^3/uL Red Blood Count 3.04 x10^6/uL Hemoglobin 8.2 g/dL Hematocrit 25.2 % Mean Corpuscular Volume 83 fL Mean Corpuscular Hemoglobin 27 pg Mean Corpuscular Hemoglobin Concent 33 g/dL Red Cell Distribution Width 18.9 % Platelet Count 207 x10^3/uL Neutrophils (%) (Auto) 68 % Lymphocytes (%) (Auto) 15 % Monocytes (%) (Auto) 14 % Eosinophils (%) (Auto) 2 % Basophils (%) (Auto) 1 % Neutrophils # (Auto) 4.0 x10^3uL Lymphocytes # (Auto) 0.9 x10^3/uL Monocytes # (Auto) 0.8 x10^3/uL Eosinophils # (Auto) 0.1 x10^3/uL Basophils # (Auto) 0.0 x10^3/uL Sodium Level 142 mmol/L Potassium Level 3.5 mmol/L Chloride Level 100 mmol/L Carbon Dioxide Level 40 mmol/L Anion Gap 2 Blood Urea Nitrogen 16 mg/dL Creatinine 0.5 mg/dL Estimated GFR (Cockcroft-Gault) 170.8 BUN/Creatinine Ratio 32 Glucose Level 267 mg/dL Calcium Level 8.1 mg/dL Phosphorus Level 3.4 mg/dL Magnesium Level 1.8 mg/dL Total Bilirubin 0.6 mg/dL Aspartate Amino Transf (AST/SGOT) 32 U/L Alanine Aminotransferase (ALT/SGPT) 20 U/L Alkaline Phosphatase 166 U/L Total Protein 5.5 g/dL Albumin 2.1 g/dL Albumin/Globulin Ratio 0.6 Test 4/4/19 06:13 12/31/18 07:45 Glucose (Fingerstick) 261 mg/dL O2 Saturation 96 % Arterial Blood pH 7.50 Arterial Blood pCO2 at Patient Temp 49 mmHg Arterial Blood pO2 at Patient Temp 79 mmHg Arterial Blood HCO3 38 mmol/L Arterial Blood Base Excess 13 mmol/L FiO2 50 Imaging: CXR IMPRESSION: No significant change since yesterday's study. PE: GEN: intubated LUNGS: vent HEART: tachycardic ABD: BS+, soft NEURO/PSYCH: briefly opens eyes A/P: S/p pancreatic pseudocystogastrostomy and cholecystectomy -- Continue support. KALEE ULLOA Dec 31, 2018 09:59
--- NOTE | 2018-12-31 11:22 | PDOC ---
SURGICAL PROGRESS NOTE Subjective vent drain out, not much drainage tolerating TF had loose stools Vital Signs Vital Signs Date Time Temp Pulse Resp B/P (MAP) Pulse Ox O2 Delivery O2 Flow Rate FiO2 12/31/18 10:00 100.7 100 26 133/71 (91) 97 Ventilator 100.7 12/30/18 15:09 15.0 I&O Intake and Output 12/31/18 07:00 Intake Total 2556 ml Output Total 2787 ml Balance -231 ml Intake Oral 0 ml IV Total 1908 ml Tube Feeding 623 ml Other 25 ml Output Urine Total 2655 ml Stool Total 2 ml Gastric Drainage Total 0 ml Drainage Total 130 ml # Bowel Movements 1 General: No acute distress HEENT: Other (vent) Abdomen: Soft, Other (incision healing, g tube) Labs Laboratory Tests Test 12/29/18 12:44 12/29/18 15:30 12/29/18 18:24 12/29/18 23:38 Glucose (Fingerstick) 170 mg/dL (70-99) 231 mg/dL (70-99) 292 mg/dL (70-99) O2 Saturation 97 % (92-99) Arterial Blood pH 7.41 (7.35-7.45) Arterial Blood pCO2 at Patient Temp 64 mmHg (35-46) Arterial Blood pO2 at Patient Temp 103 mmHg (75-108) Arterial Blood HCO3 40 mmol/L (21-28) Arterial Blood Base Excess 13 mmol/L (-3-3) FiO2 100 Test 12/30/18 05:30 12/30/18 05:44 12/30/18 07:42 12/30/18 09:24 White Blood Count 5.9 x10^3/uL (4.0-11.0) Red Blood Count 3.43 x10^6/uL (4.30-5.70) Hemoglobin 9.3 g/dL (13.0-17.5) Hematocrit 28.4 % (39.0-53.0) Mean Corpuscular Volume 83 fL (79-100) Mean Corpuscular Hemoglobin 27 pg (25-35) Mean Corpuscular Hemoglobin Concent 33 g/dL (31-37) Red Cell Distribution Width 19.3 % (11.5-14.5) Platelet Count 210 x10^3/uL (140-400) Neutrophils (%) (Auto) 68 % (31-73) Lymphocytes (%) (Auto) 15 % (24-48) Monocytes (%) (Auto) 14 % (0-9) Eosinophils (%) (Auto) 2 % (0-3) Basophils (%) (Auto) 1 % (0-3) Neutrophils # (Auto) 4.0 x10^3uL (1.8-7.7) Lymphocytes # (Auto) 0.9 x10^3/uL (1.0-4.8) Monocytes # (Auto) 0.8 x10^3/uL (0.0-1.1) Eosinophils # (Auto) 0.1 x10^3/uL (0.0-0.7) Basophils # (Auto) 0.0 x10^3/uL (0.0-0.2) Sodium Level 139 mmol/L (136-145) Potassium Level 4.0 mmol/L (3.5-5.1) Chloride Level 100 mmol/L (98-107) Carbon Dioxide Level 38 mmol/L (21-32) Anion Gap 1 (6-14) Blood Urea Nitrogen 15 mg/dL (8-26) Creatinine 0.6 mg/dL (0.7-1.3) Estimated GFR (Cockcroft-Gault) 138.4 BUN/Creatinine Ratio 25 (6-20) Glucose Level 268 mg/dL (70-99) Calcium Level 8.0 mg/dL (8.5-10.1) Phosphorus Level 3.5 mg/dL (2.6-4.7) Magnesium Level 1.5 mg/dL (1.8-2.4) Total Bilirubin 0.6 mg/dL (0.2-1.0) Aspartate Amino Transf (AST/SGOT) 28 U/L (15-37) Alanine Aminotransferase (ALT/SGPT) 17 U/L (16-63) Alkaline Phosphatase 184 U/L (46-116) Total Protein 5.4 g/dL (6.4-8.2) Albumin 1.9 g/dL (3.4-5.0) Albumin/Globulin Ratio 0.5 (1.0-1.7) Glucose (Fingerstick) 240 mg/dL (70-99) 212 mg/dL (70-99) O2 Saturation 91 % (92-99) Arterial Blood pH 7.49 (7.35-7.45) Arterial Blood pCO2 at Patient Temp 51 mmHg (35-46) Arterial Blood pO2 at Patient Temp 60 mmHg (75-108) Arterial Blood HCO3 38 mmol/L (21-28) Arterial Blood Base Excess 13 mmol/L (-3-3) FiO2 50 Test 12/30/18 12:46 12/30/18 16:58 12/30/18 23:57 12/31/18 05:24 Glucose (Fingerstick) 234 mg/dL (70-99) 212 mg/dL (70-99) 267 mg/dL (70-99) White Blood Count 5.9 x10^3/uL (4.0-11.0) Red Blood Count 3.04 x10^6/uL (4.30-5.70) Hemoglobin 8.2 g/dL (13.0-17.5) Hematocrit 25.2 % (39.0-53.0) Mean Corpuscular Volume 83 fL (79-100) Mean Corpuscular Hemoglobin 27 pg (25-35) Mean Corpuscular Hemoglobin Concent 33 g/dL (31-37) Red Cell Distribution Width 18.9 % (11.5-14.5) Platelet Count 207 x10^3/uL (140-400) Neutrophils (%) (Auto) 68 % (31-73) Lymphocytes (%) (Auto) 15 % (24-48) Monocytes (%) (Auto) 14 % (0-9) Eosinophils (%) (Auto) 2 % (0-3) Basophils (%) (Auto) 1 % (0-3) Neutrophils # (Auto) 4.0 x10^3uL (1.8-7.7) Lymphocytes # (Auto) 0.9 x10^3/uL (1.0-4.8) Monocytes # (Auto) 0.8 x10^3/uL (0.0-1.1) Eosinophils # (Auto) 0.1 x10^3/uL (0.0-0.7) Basophils # (Auto) 0.0 x10^3/uL (0.0-0.2) Sodium Level 142 mmol/L (136-145) Potassium Level 3.5 mmol/L (3.5-5.1) Chloride Level 100 mmol/L (98-107) Carbon Dioxide Level 40 mmol/L (21-32) Anion Gap 2 (6-14) Blood Urea Nitrogen 16 mg/dL (8-26) Creatinine 0.5 mg/dL (0.7-1.3) Estimated GFR (Cockcroft-Gault) 170.8 BUN/Creatinine Ratio 32 (6-20) Glucose Level 267 mg/dL (70-99) Calcium Level 8.1 mg/dL (8.5-10.1) Phosphorus Level 3.4 mg/dL (2.6-4.7) Magnesium Level 1.8 mg/dL (1.8-2.4) Total Bilirubin 0.6 mg/dL (0.2-1.0) Aspartate Amino Transf (AST/SGOT) 32 U/L (15-37) Alanine Aminotransferase (ALT/SGPT) 20 U/L (16-63) Alkaline Phosphatase 166 U/L (46-116) Total Protein 5.5 g/dL (6.4-8.2) Albumin 2.1 g/dL (3.4-5.0) Albumin/Globulin Ratio 0.6 (1.0-1.7) Test 12/31/18 06:13 12/31/18 07:45 Glucose (Fingerstick) 261 mg/dL (70-99) O2 Saturation 96 % (92-99) Arterial Blood pH 7.50 (7.35-7.45) Arterial Blood pCO2 at Patient Temp 49 mmHg (35-46) Arterial Blood pO2 at Patient Temp 79 mmHg (75-108) Arterial Blood HCO3 38 mmol/L (21-28) Arterial Blood Base Excess 13 mmol/L (-3-3) FiO2 50 Laboratory Tests Test 12/30/18 12:46 12/30/18 16:58 12/30/18 23:57 12/31/18 05:24 Glucose (Fingerstick) 234 mg/dL (70-99) 212 mg/dL (70-99) 267 mg/dL (70-99) White Blood Count 5.9 x10^3/uL (4.0-11.0) Red Blood Count 3.04 x10^6/uL (4.30-5.70) Hemoglobin 8.2 g/dL (13.0-17.5) Hematocrit 25.2 % (39.0-53.0) Mean Corpuscular Volume 83 fL (79-100) Mean Corpuscular Hemoglobin 27 pg (25-35) Mean Corpuscular Hemoglobin Concent 33 g/dL (31-37) Red Cell Distribution Width 18.9 % (11.5-14.5) Platelet Count 207 x10^3/uL (140-400) Neutrophils (%) (Auto) 68 % (31-73) Lymphocytes (%) (Auto) 15 % (24-48) Monocytes (%) (Auto) 14 % (0-9) Eosinophils (%) (Auto) 2 % (0-3) Basophils (%) (Auto) 1 % (0-3) Neutrophils # (Auto) 4.0 x10^3uL (1.8-7.7) Lymphocytes # (Auto) 0.9 x10^3/uL (1.0-4.8) Monocytes # (Auto) 0.8 x10^3/uL (0.0-1.1) Eosinophils # (Auto) 0.1 x10^3/uL (0.0-0.7) Basophils # (Auto) 0.0 x10^3/uL (0.0-0.2) Sodium Level 142 mmol/L (136-145) Potassium Level 3.5 mmol/L (3.5-5.1) Chloride Level 100 mmol/L (98-107) Carbon Dioxide Level 40 mmol/L (21-32) Anion Gap 2 (6-14) Blood Urea Nitrogen 16 mg/dL (8-26) Creatinine 0.5 mg/dL (0.7-1.3) Estimated GFR (Cockcroft-Gault) 170.8 BUN/Creatinine Ratio 32 (6-20) Glucose Level 267 mg/dL (70-99) Calcium Level 8.1 mg/dL (8.5-10.1) Phosphorus Level 3.4 mg/dL (2.6-4.7) Magnesium Level 1.8 mg/dL (1.8-2.4) Total Bilirubin 0.6 mg/dL (0.2-1.0) Aspartate Amino Transf (AST/SGOT) 32 U/L (15-37) Alanine Aminotransferase (ALT/SGPT) 20 U/L (16-63) Alkaline Phosphatase 166 U/L (46-116) Total Protein 5.5 g/dL (6.4-8.2) Albumin 2.1 g/dL (3.4-5.0) Albumin/Globulin Ratio 0.6 (1.0-1.7) Test 12/31/18 06:13 12/31/18 07:45 Glucose (Fingerstick) 261 mg/dL (70-99) O2 Saturation 96 % (92-99) Arterial Blood pH 7.50 (7.35-7.45) Arterial Blood pCO2 at Patient Temp 49 mmHg (35-46) Arterial Blood pO2 at Patient Temp 79 mmHg (75-108) Arterial Blood HCO3 38 mmol/L (21-28) Arterial Blood Base Excess 13 mmol/L (-3-3) FiO2 50 Assessment/Plan continue TF supportive measures 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
[2018-12-31] MEDS: MORPHINE SULFATE 2 MG/ML VIAL. IV PRN ×3 (12:16→22:20)
--- NOTE | 2018-12-31 13:04 | PDOC ---
PULMONARY PROGRESS NOTES Subjective OFF SEDATION/ NOT AWAKE YET/ EYES OPEN AC MODE Vitals Vital Signs Date Time Temp Pulse Resp B/P (MAP) Pulse Ox O2 Delivery O2 Flow Rate FiO2 12/31/18 12:53 98 15.0 12/31/18 12:50 Ventilator 12/31/18 12:00 89 25 125/74 (91) 12/31/18 10:00 100.7 100.7 Lungs: Other (decrease bs) Cardiovascular: S1, S2 Abdomen: Soft, Other (G TUBE) Extremities: Other (EDEMA) Skin: Warm Labs Laboratory Tests Test 12/29/18 15:30 12/29/18 18:24 12/29/18 23:38 12/30/18 05:30 O2 Saturation 97 % (92-99) Arterial Blood pH 7.41 (7.35-7.45) Arterial Blood pCO2 at Patient Temp 64 mmHg (35-46) Arterial Blood pO2 at Patient Temp 103 mmHg (75-108) Arterial Blood HCO3 40 mmol/L (21-28) Arterial Blood Base Excess 13 mmol/L (-3-3) FiO2 100 Glucose (Fingerstick) 231 mg/dL (70-99) 292 mg/dL (70-99) White Blood Count 5.9 x10^3/uL (4.0-11.0) Red Blood Count 3.43 x10^6/uL (4.30-5.70) Hemoglobin 9.3 g/dL (13.0-17.5) Hematocrit 28.4 % (39.0-53.0) Mean Corpuscular Volume 83 fL (79-100) Mean Corpuscular Hemoglobin 27 pg (25-35) Mean Corpuscular Hemoglobin Concent 33 g/dL (31-37) Red Cell Distribution Width 19.3 % (11.5-14.5) Platelet Count 210 x10^3/uL (140-400) Neutrophils (%) (Auto) 68 % (31-73) Lymphocytes (%) (Auto) 15 % (24-48) Monocytes (%) (Auto) 14 % (0-9) Eosinophils (%) (Auto) 2 % (0-3) Basophils (%) (Auto) 1 % (0-3) Neutrophils # (Auto) 4.0 x10^3uL (1.8-7.7) Lymphocytes # (Auto) 0.9 x10^3/uL (1.0-4.8) Monocytes # (Auto) 0.8 x10^3/uL (0.0-1.1) Eosinophils # (Auto) 0.1 x10^3/uL (0.0-0.7) Basophils # (Auto) 0.0 x10^3/uL (0.0-0.2) Sodium Level 139 mmol/L (136-145) Potassium Level 4.0 mmol/L (3.5-5.1) Chloride Level 100 mmol/L (98-107) Carbon Dioxide Level 38 mmol/L (21-32) Anion Gap 1 (6-14) Blood Urea Nitrogen 15 mg/dL (8-26) Creatinine 0.6 mg/dL (0.7-1.3) Estimated GFR (Cockcroft-Gault) 138.4 BUN/Creatinine Ratio 25 (6-20) Glucose Level 268 mg/dL (70-99) Calcium Level 8.0 mg/dL (8.5-10.1) Phosphorus Level 3.5 mg/dL (2.6-4.7) Magnesium Level 1.5 mg/dL (1.8-2.4) Total Bilirubin 0.6 mg/dL (0.2-1.0) Aspartate Amino Transf (AST/SGOT) 28 U/L (15-37) Alanine Aminotransferase (ALT/SGPT) 17 U/L (16-63) Alkaline Phosphatase 184 U/L (46-116) Total Protein 5.4 g/dL (6.4-8.2) Albumin 1.9 g/dL (3.4-5.0) Albumin/Globulin Ratio 0.5 (1.0-1.7) Test 12/30/18 05:44 12/30/18 07:42 12/30/18 09:24 12/30/18 12:46 Glucose (Fingerstick) 240 mg/dL (70-99) 212 mg/dL (70-99) 234 mg/dL (70-99) O2 Saturation 91 % (92-99) Arterial Blood pH 7.49 (7.35-7.45) Arterial Blood pCO2 at Patient Temp 51 mmHg (35-46) Arterial Blood pO2 at Patient Temp 60 mmHg (75-108) Arterial Blood HCO3 38 mmol/L (21-28) Arterial Blood Base Excess 13 mmol/L (-3-3) FiO2 50 Test 12/30/18 16:58 12/30/18 23:57 12/31/18 05:24 12/31/18 06:13 Glucose (Fingerstick) 212 mg/dL (70-99) 267 mg/dL (70-99) 261 mg/dL (70-99) White Blood Count 5.9 x10^3/uL (4.0-11.0) Red Blood Count 3.04 x10^6/uL (4.30-5.70) Hemoglobin 8.2 g/dL (13.0-17.5) Hematocrit 25.2 % (39.0-53.0) Mean Corpuscular Volume 83 fL (79-100) Mean Corpuscular Hemoglobin 27 pg (25-35) Mean Corpuscular Hemoglobin Concent 33 g/dL (31-37) Red Cell Distribution Width 18.9 % (11.5-14.5) Platelet Count 207 x10^3/uL (140-400) Neutrophils (%) (Auto) 68 % (31-73) Lymphocytes (%) (Auto) 15 % (24-48) Monocytes (%) (Auto) 14 % (0-9) Eosinophils (%) (Auto) 2 % (0-3) Basophils (%) (Auto) 1 % (0-3) Neutrophils # (Auto) 4.0 x10^3uL (1.8-7.7) Lymphocytes # (Auto) 0.9 x10^3/uL (1.0-4.8) Monocytes # (Auto) 0.8 x10^3/uL (0.0-1.1) Eosinophils # (Auto) 0.1 x10^3/uL (0.0-0.7) Basophils # (Auto) 0.0 x10^3/uL (0.0-0.2) Sodium Level 142 mmol/L (136-145) Potassium Level 3.5 mmol/L (3.5-5.1) Chloride Level 100 mmol/L (98-107) Carbon Dioxide Level 40 mmol/L (21-32) Anion Gap 2 (6-14) Blood Urea Nitrogen 16 mg/dL (8-26) Creatinine 0.5 mg/dL (0.7-1.3) Estimated GFR (Cockcroft-Gault) 170.8 BUN/Creatinine Ratio 32 (6-20) Glucose Level 267 mg/dL (70-99) Calcium Level 8.1 mg/dL (8.5-10.1) Phosphorus Level 3.4 mg/dL (2.6-4.7) Magnesium Level 1.8 mg/dL (1.8-2.4) Total Bilirubin 0.6 mg/dL (0.2-1.0) Aspartate Amino Transf (AST/SGOT) 32 U/L (15-37) Alanine Aminotransferase (ALT/SGPT) 20 U/L (16-63) Alkaline Phosphatase 166 U/L (46-116) Total Protein 5.5 g/dL (6.4-8.2) Albumin 2.1 g/dL (3.4-5.0) Albumin/Globulin Ratio 0.6 (1.0-1.7) Test 12/31/18 07:45 O2 Saturation 96 % (92-99) Arterial Blood pH 7.50 (7.35-7.45) Arterial Blood pCO2 at Patient Temp 49 mmHg (35-46) Arterial Blood pO2 at Patient Temp 79 mmHg (75-108) Arterial Blood HCO3 38 mmol/L (21-28) Arterial Blood Base Excess 13 mmol/L (-3-3) FiO2 50 Laboratory Tests Test 12/30/18 16:58 12/30/18 23:57 12/31/18 05:24 12/31/18 06:13 Glucose (Fingerstick) 212 mg/dL (70-99) 267 mg/dL (70-99) 261 mg/dL (70-99) White Blood Count 5.9 x10^3/uL (4.0-11.0) Red Blood Count 3.04 x10^6/uL (4.30-5.70) Hemoglobin 8.2 g/dL (13.0-17.5) Hematocrit 25.2 % (39.0-53.0) Mean Corpuscular Volume 83 fL (79-100) Mean Corpuscular Hemoglobin 27 pg (25-35) Mean Corpuscular Hemoglobin Concent 33 g/dL (31-37) Red Cell Distribution Width 18.9 % (11.5-14.5) Platelet Count 207 x10^3/uL (140-400) Neutrophils (%) (Auto) 68 % (31-73) Lymphocytes (%) (Auto) 15 % (24-48) Monocytes (%) (Auto) 14 % (0-9) Eosinophils (%) (Auto) 2 % (0-3) Basophils (%) (Auto) 1 % (0-3) Neutrophils # (Auto) 4.0 x10^3uL (1.8-7.7) Lymphocytes # (Auto) 0.9 x10^3/uL (1.0-4.8) Monocytes # (Auto) 0.8 x10^3/uL (0.0-1.1) Eosinophils # (Auto) 0.1 x10^3/uL (0.0-0.7) Basophils # (Auto) 0.0 x10^3/uL (0.0-0.2) Sodium Level 142 mmol/L (136-145) Potassium Level 3.5 mmol/L (3.5-5.1) Chloride Level 100 mmol/L (98-107) Carbon Dioxide Level 40 mmol/L (21-32) Anion Gap 2 (6-14) Blood Urea Nitrogen 16 mg/dL (8-26) Creatinine 0.5 mg/dL (0.7-1.3) Estimated GFR (Cockcroft-Gault) 170.8 BUN/Creatinine Ratio 32 (6-20) Glucose Level 267 mg/dL (70-99) Calcium Level 8.1 mg/dL (8.5-10.1) Phosphorus Level 3.4 mg/dL (2.6-4.7) Magnesium Level 1.8 mg/dL (1.8-2.4) Total Bilirubin 0.6 mg/dL (0.2-1.0) Aspartate Amino Transf (AST/SGOT) 32 U/L (15-37) Alanine Aminotransferase (ALT/SGPT) 20 U/L (16-63) Alkaline Phosphatase 166 U/L (46-116) Total Protein 5.5 g/dL (6.4-8.2) Albumin 2.1 g/dL (3.4-5.0) Albumin/Globulin Ratio 0.6 (1.0-1.7) Test 12/31/18 07:45 O2 Saturation 96 % (92-99) Arterial Blood pH 7.50 (7.35-7.45) Arterial Blood pCO2 at Patient Temp 49 mmHg (35-46) Arterial Blood pO2 at Patient Temp 79 mmHg (75-108) Arterial Blood HCO3 38 mmol/L (21-28) Arterial Blood Base Excess 13 mmol/L (-3-3) FiO2 50 Medications Active Scripts Medications Dose Route/Sig Max Daily Dose Days Date Category Trophamine (Amino Acids 10 %) 500 Ml Iv.soln 500 Ml IV DAILY 199912/21/18 Reported Duoneb 0.5-3(2.5) Mg/3 Ml (Albuterol/Ipratropium) 3 Ml Ampul.neb 3 Ml NEB BID 12/21/18 Reported Dulcolax (Bisacodyl) 10 Mg Supp.rect 10 Mg RC PRN DAILY PRN 12/21/18 Reported Duoneb 0.5-3(2.5) Mg/3 Ml (Albuterol/Ipratropium) 3 Ml Ampul.neb 3 Ml NEB PRN Q4HRS PRN 12/21/18 Reported Atorvastatin Calcium 40 Mg Tablet 1 Tab PO QHS 12/21/18 Reported Simethicone 80 Mg Tab.chew 80 Mg PO PRN TID PRN 12/21/18 Reported Humalog (Insulin Lispro) 100 Unit/1 Ml Vial 0 SQ Q6HRS 12/21/18 Reported Ondansetron Hcl 4 Mg/2 Ml Vial (Ondansetron Hcl/Pf) 4 Mg/2 Ml Vial 4 Mg IJ PRN Q6HRS PRN 12/21/18 Reported Actos (Pioglitazone Hcl) 15 Mg Tablet 1 Tab PO DAILY 12/21/18 Reported Tylenol Extra Strength (Acetaminophen) 500 Mg Tablet 1,000 Mg PO PRN Q6HRS PRN 12/21/18 Reported Senokot-S Tablet (Sennosides/Docusate Sodium) 1 Each Tablet 1 Tab PO BID 12/21/18 Reported Vitamin D3 (Cholecalciferol (Vitamin D3)) 1,000 Unit Tablet 1 Tab PO DAILY 12/21/18 Reported Carvedilol (Carvedilol) 12.5 Mg Tablet 12.5 Mg PO BIDWMEALS 12/21/18 Reported Comments CXR / IMPRESSION: [id number] effusions with adjacent infiltrates ( R>L). No change. Impression . 1. Expected hypoxemic respiratory failure, status post open pancreatic pseudocyst gastrostomy, open cholecystectomy, G-tube placement. 2. History of necrotizing pancreatitis. 3. Abnormal x-ray c/w basal effusions/ Mild CHF 4. Possible sepsis. 5. Coronary artery disease, status post coronary artery bypass grafting. 6. History of alcoholism. 7. Protein malnutrition, present upon admission. 8. Acute blood loss anemia, expected. S/P TRANSFUSIONS 9. Persistent encephalopathy/ sedation induced. Plan . OFF SEDATION/ NOT AWAKE YET WEAN FIO2 AND PEEP SLOWLY CPAP TRIAL WHEN HE AWAKENS MAKING MILD PROGRESS OFF PRESSORS ABG NOTED / VENT CHANGES MADE TPN FOR NUTRITION DVT PROPH FOLLOW CONSULTANTS INPUT DIURESIS FOLLOW CXR ABX PER ID STEVIE WHITE MD Dec 31, 2018 13:04
[2018-12-31] MEDS: TPN PER PHARMACY MC PRN (13:36)
[2018-12-31] MEDS: VANCOMYCIN PER PHARMACY MC PRN (13:38)
--- NOTE | 2018-12-31 13:38 | NUR ---
Pharmacy TPN Dosing Note S: JUSTIN OLSEN is a 58 year old M Currently receiving Central Continuous TPN started B:Pertinent PMH: PANCREATITIS; Long-Term TPN from [facility] Height: 6 feet, 0 inches Weight: 101.6 kg Current diet: Tube feeding LABS: Sodium: 142 Potassium: 3.5 Chloride: 100 Calcium: 8.1 Corrected Calcium: 9.62 Magnesium: 1.8 CO2: 40 SCr: 0.5 Glucose: 212-267 Albumin: 2.1 AST: 32 ALT: 20 TPN FORMULA: TPN TYPE: Central Continuous AMINO ACIDS: 100 gm DEXTROSE: 375 gm LIPIDS: 30 gm SODIUM CHLORIDE: 110 mEq SODIUM ACETATE: 12 mEq POTASSIUM CHLORIDE: 60 mEq POTASSIUM PHOSPHATE: 20 mmol MAGNESIUM: 28 mEq CALCIUM: 9.3 mEq INSULIN: 100 units MULTIPLE VITAMIN: 10 ml TRACE ELEMENTS: 1 ml(s) TPN PLAN: Tube feeding advanced to 30mL/hr so far (goal 60mL/hr). No changes made to TPN. R: Continue TPN Will monitor electrolytes, glucose, and tolerance to TPN. Vicky Garces [facility], 12/31/18 [id number]
--- NOTE | 2018-12-31 13:55 | NUR ---
Pharmacy Vancomycin Dosing Note S:Consulted to monitor and dose vancomycin started 12/31/18. O:JUSTIN OLSEN is a 58 year old M started empirically on vanco due to fever Height: 6 feet, 0 inches Weight: 101.6 kg [place] Body Weight: 77.60 Adjusted Body Weight: 88.84 Dosing Weight: Actual Other Antibiotics: Merrem Mycamine LABS: Last BUN: 16 Last Creatinine: 0.5 Creatinine Clearance: >100 mL/min Last WBC: 5.9 Last Procalcitonin: Tmax (past 24 hours): 100.8 I/O: 5015/5905 Last dose given 12/31/18 at 0929 Vancomycin Dosing: Loading Dose: 2000 mg x1 Dosing Weight: Actual Target Trough: 15-20 A: Based on: weight and renal function P: 1. Begin Vancomycin 1500 mg IV q8h 2. Follow up Trough level on 01/01/19 at 0900 3. Pharmacy will continue to monitor, follow and adjust therapy as needed. Vicky Garces [facility], 12/31/18 [id number]
--- NOTE | 2018-12-31 15:56 | PDOC ---
PROGRESS NOTES Subjective Subjective seen in ICU on vent Objective Objective Vital Signs Date Time Temp Pulse Resp B/P (MAP) Pulse Ox O2 Delivery O2 Flow Rate FiO2 12/31/18 15:20 97 Ventilator 12/31/18 12:53 15.0 12/31/18 12:00 89 25 125/74 (91) 12/31/18 10:00 100.7 100.7 Intake and Output 12/31/18 07:00 Intake Total 2556 ml Output Total 2787 ml Balance -231 ml Intake Oral 0 ml IV Total 1908 ml Tube Feeding 623 ml Other 25 ml Output Urine Total 2655 ml Stool Total 2 ml Gastric Drainage Total 0 ml Drainage Total 130 ml # Bowel Movements 1 Physical Exam Physical Exam orally intubated Abdomen: Soft, Other (incision healing, g tube) Heart: Regular rate, Normal S1, Normal S2, No murmurs, Gallops Extremities: Other (DIFFUSE EDEMA) General: No acute distress HEENT: Other (vent) Lungs: Clear to auscultation, Other (ON VENT) MUSCULOSKELETAL: No deformity, Other (+ EDEMA) Neuro: Other (SEDATED) Psych/Mental Status: Other (SEDATED) Skin: No breakdown Assessment Assessment IMP: Pancreatic pseudocyst+h/o necrotizing pancreatitis. 1. Acute respiratory failure on Vent. 2. Acute hypotension resolved , 3. Acute pancreatitis with pseudocyst. 4. Systolic congestive heart failure. 5. Coronary artery disease, history of coronary artery bypass graft x 5. 6. Acute metabolic encephalopathy. 7. History of fall with nasal fracture. 8. History of atrial fibrillation. 9. Hyperlipidemia. 10. Severe protein-calorie malnutrition. 11. Anemia. 12. Obesity hypoventilation syndrome, with likely obstructive sleep apnea, has been on BiPAP at night. PLAN: vent management POD #9,laparotomy, pancreatic pseudocyst surgery labs reviewed cxr no change TPN for nutrition iv antibiotics maropenum+vanco+diflucan. dvt prevention. spoke with LLOYD will seen in ICU Comment Review of Relevant I have reviewed the following items johanny (where applicable) has been applied. Labs Laboratory Tests Test 12/30/18 16:58 12/30/18 23:57 12/31/18 05:24 12/31/18 06:13 Glucose (Fingerstick) 212 mg/dL (70-99) 267 mg/dL (70-99) 261 mg/dL (70-99) White Blood Count 5.9 x10^3/uL (4.0-11.0) Red Blood Count 3.04 x10^6/uL (4.30-5.70) Hemoglobin 8.2 g/dL (13.0-17.5) Hematocrit 25.2 % (39.0-53.0) Mean Corpuscular Volume 83 fL (79-100) Mean Corpuscular Hemoglobin 27 pg (25-35) Mean Corpuscular Hemoglobin Concent 33 g/dL (31-37) Red Cell Distribution Width 18.9 % (11.5-14.5) Platelet Count 207 x10^3/uL (140-400) Neutrophils (%) (Auto) 68 % (31-73) Lymphocytes (%) (Auto) 15 % (24-48) Monocytes (%) (Auto) 14 % (0-9) Eosinophils (%) (Auto) 2 % (0-3) Basophils (%) (Auto) 1 % (0-3) Neutrophils # (Auto) 4.0 x10^3uL (1.8-7.7) Lymphocytes # (Auto) 0.9 x10^3/uL (1.0-4.8) Monocytes # (Auto) 0.8 x10^3/uL (0.0-1.1) Eosinophils # (Auto) 0.1 x10^3/uL (0.0-0.7) Basophils # (Auto) 0.0 x10^3/uL (0.0-0.2) Sodium Level 142 mmol/L (136-145) Potassium Level 3.5 mmol/L (3.5-5.1) Chloride Level 100 mmol/L (98-107) Carbon Dioxide Level 40 mmol/L (21-32) Anion Gap 2 (6-14) Blood Urea Nitrogen 16 mg/dL (8-26) Creatinine 0.5 mg/dL (0.7-1.3) Estimated GFR (Cockcroft-Gault) 170.8 BUN/Creatinine Ratio 32 (6-20) Glucose Level 267 mg/dL (70-99) Calcium Level 8.1 mg/dL (8.5-10.1) Phosphorus Level 3.4 mg/dL (2.6-4.7) Magnesium Level 1.8 mg/dL (1.8-2.4) Total Bilirubin 0.6 mg/dL (0.2-1.0) Aspartate Amino Transf (AST/SGOT) 32 U/L (15-37) Alanine Aminotransferase (ALT/SGPT) 20 U/L (16-63) Alkaline Phosphatase 166 U/L (46-116) Total Protein 5.5 g/dL (6.4-8.2) Albumin 2.1 g/dL (3.4-5.0) Albumin/Globulin Ratio 0.6 (1.0-1.7) Test 12/31/18 07:45 O2 Saturation 96 % (92-99) Arterial Blood pH 7.50 (7.35-7.45) Arterial Blood pCO2 at Patient Temp 49 mmHg (35-46) Arterial Blood pO2 at Patient Temp 79 mmHg (75-108) Arterial Blood HCO3 38 mmol/L (21-28) Arterial Blood Base Excess 13 mmol/L (-3-3) FiO2 50 Microbiology 12/27/18 - Final, Complete 12/27/18 - Final, Complete 12/27/18 - Final, Complete 12/27/18 Gram Stain Evaluation - Final, Complete 12/27/18 Sputum Culture - Final, Complete 12/27/18 Sputum Result 1 - Final, Complete 12/22/18 Anaerobic/Aerobic Culture - Final, Complete 12/22/18 Anaerobic Culture Result 1 (MELONY) - Final, Complete 12/22/18 Aerobic Culture - Final, Complete 12/22/18 Aerobic Culture Result 1 (MELONY) - Final, Complete 12/22/18 Gram Stain - Final, Complete 12/22/18 Gram Stain Result 1 (MELONY) - Final, Complete 12/22/18 Gram Stain Result 2 (MELONY) - Final, Complete Medications Current Medications Acetaminophen (Tylenol Supp) 650 mg PRN Q6HRS PRN HI MILD PAIN / TEMP Last administered on 12/31/18at 08:42; Start 12/31/18 at 08:15 Micafungin Sodium 100 mg/Dextrose 100 ml @ 100 mls/hr Q24H IV Last administered on 12/31/18at 09:29; Start 12/31/18 at 10:00 Sodium Chloride 110 meq/Sodium Acetate 12 meq/ Potassium Chloride 60 meq/ Potassium Phosphate 20 mmol/ Magnesium Sulfate 28 meq/Calcium Gluconate 9.3 meq / Multivitamins 10 ml/Chromium/ Copper/Manganese/ Seleni/Zn 1 ml/ Insulin Human Regular 100 unit/ Total Parenteral Nutrition/Amino Acids/Dextro... 1,800 ml @ 75 mls/hr TPN CONT IV Last administered on 12/30/18at 22:14; Start 12/30/18 at 22 :00; Stop 12/31/18 at 21:59 Sodium Chloride 110 meq/Sodium Acetate 12 meq/ Potassium Chloride 60 meq/ Potassium Phosphate 20 mmol/ Magnesium Sulfate 28 meq/Calcium Gluconate 9.3 meq / Multivitamins 10 ml/Chromium/ Copper/Manganese/ Seleni/Zn 1 ml/ Insulin Human Regular 100 unit/ Total Parenteral Nutrition/Amino Acids/Dextro... 1,800 ml @ 75 mls/hr TPN CONT IV ; Start 12/31/18 at 22:00; Stop 01/01/19 at 21:59 Vancomycin HCl (Vanco Per Pharmacy) 1 each PRN DAILY PRN MC SEE COMMENTS Last administered on 12/31/18at 13:38; Start 12/31/18 at 08:15 Vancomycin HCl (Vancomycin Trough Level) 1 each 1X ONCE MC ; Start 01/01/19 at 09:00; Stop 01/01/19 at 09:01 Vancomycin HCl 2 gm/Sodium Chloride 500 ml @ 250 mls/hr 1X ONCE IV Last administered on 12/31/18at 09:29; Start 12/31/18 at 09:00; Stop 12/31/18 at 10:59; Status DC Vitals/I & O Vital Sign - Last 24 Hours 12/30/18 12/30/18 12/30/18 12/30/18 16:00 16:07 16:34 17:00 Pulse 99 100 Resp 25 25 B/P (MAP) 144/70 (94) 140/69 (92) Pulse Ox 95 95 94 O2 Delivery Ventilator Mechanical Ventilator Ventilator Ventilator 12/30/18 12/30/18 12/30/18 12/30/18 17:58 18:00 19:00 20:00 Pulse 106 108 Resp 25 24 B/P (MAP) 140/69 (92) 139/63 (88) Pulse Ox 95 94 94 O2 Delivery Ventilator Ventilator Ventilator Mechanical Ventilator 12/30/18 12/30/18 12/30/18 12/30/18 20:00 20:12 21:00 22:00 Temp 100.8 100.8 Pulse 102 98 100 Resp 25 24 24 B/P (MAP) 132/65 (87) 149/69 (95) 140/70 (93) Pulse Ox 94 94 95 93 O2 Delivery Ventilator Ventilator Ventilator Ventilator 12/30/18 12/31/18 12/31/18 12/31/18 23:00 00:00 00:00 00:01 Temp 98.0 98.0 Pulse 104 100 Resp 27 B/P (MAP) 133/67 (89) 118/64 (82) Pulse Ox 94 95 94 O2 Delivery Ventilator Mechanical Ventilator Ventilator Ventilator 12/31/18 12/31/18 12/31/18 12/31/18 01:00 02:00 02:39 03:00 Pulse 102 99 97 Resp 28 B/P (MAP) 126/62 (83) 138/70 (92) 143/76 (98) Pulse Ox 96 94 97 96 O2 Delivery Ventilator Ventilator Ventilator Ventilator 12/31/18 12/31/18 12/31/18 12/31/18 04:00 04:00 04:34 05:00 Temp 99.6 99.6 Pulse 105 98 Resp B/P (MAP) 146/78 (100) 140/70 (93) Pulse Ox 96 96 96 O2 Delivery Mechanical Ventilator Ventilator Ventilator Ventilator 12/31/18 12/31/18 12/31/18 12/31/18 05:44 06:00 07:00 07:33 Temp 100.8 100.8 Pulse 101 100 Resp 22 B/P (MAP) 155/77 (103) 133/71 (91) Pulse Ox 95 95 95 95 O2 Delivery Ventilator Ventilator Ventilator Ventilator 12/31/18 12/31/18 12/31/18 12/31/18 08:00 08:00 09:00 09:24 Pulse 100 104 Resp 22 B/P (MAP) 138/72 (94) 138/70 (92) Pulse Ox 97 95 95 O2 Delivery Ventilator Mechanical Ventilator Ventilator Ventilator 12/31/18 12/31/18 12/31/18 12/31/18 10:00 11:00 11:40 12:00 Temp 100.7 100.7 Pulse 100 90 Resp 25 B/P (MAP) 133/71 (91) 156/74 (101) Pulse Ox 97 95 98 O2 Delivery Ventilator Ventilator Ventilator Mechanical Ventilator 12/31/18 12/31/18 12/31/18 12/31/18 12:00 12:16 12:50 12:53 Pulse 89 Resp 25 B/P (MAP) 125/74 (91) Pulse Ox 95 98 95 98 O2 Delivery Ventilator Ventilator O2 Flow Rate 15.0 15.0 12/31/18 15:20 Pulse Ox 97 O2 Delivery Ventilator Intake and Output 12/30/18 12/30/18 12/31/18 15:00 23:00 07:00 Intake Total 1025 ml 1531 ml Output Total 400 ml 1267 ml 1120 ml Balance -400 ml -242 ml 411 ml ARMANDO MCCORMICK MD Dec 31, 2018 15:56
[2018-12-31] MEDS ORDERED: TOTAL PARENTERAL NUTRITION IV SCH ×12 (22:00)
[2018-12-31] MEDS ORDERED: AMINO ACID IV SCH ×12 (22:00)
[2018-12-31] MEDS ORDERED: [UNRECOGNIZED DRUG - OTHER] IV SCH ×12 (22:00)
[2018-12-31] MEDS ORDERED: DEXTROSE 70% IV SCH ×12 (22:00)
[2019-01-01] VITALS (24 sets, daily range): BP systolic 98–176; BP diastolic 49–92
[2019-01-01] MEDS: FUROSEMIDE 40 MG/4 ML VIAL. IVP SCH ×3 (04:48→20:22)
[2019-01-01] MEDS: MEROPENEM 500 MG in IV NORMAL SALINE 50ML 50 ML IV SCH ×3 (05:35→18:31)
[2019-01-01] MEDS: INSULIN LISPRO 300 UNITS/3 ML INSULN.PEN. SQ SCH ×3 (05:41→18:35)
--- NOTE | 2019-01-01 07:16 | PDOC ---
Infectious Disease Note Subjective Subjective Intubated but alert Denies pain Vital Sign Vital Signs Vital Signs Date Time Temp Pulse Resp B/P (MAP) Pulse Ox O2 Delivery O2 Flow Rate FiO2 01/01/19 06:00 97 22 141/69 (93) 95 Ventilator 01/01/19 04:00 99.2 99.2 12/31/18 18:19 15.0 Physical Exam PHYSICAL EXAM GENERAL: Intubated alet NAD HEENT: PERRL, ETT eyes open LUNGS: Mechanical breath sounds . HEART: S1 and S2. No gallops or murmurs. ABDOMEN: Obese, soft, BS quiet, previous MISTY site- clean midline incision well- approx, blister - better. min erythema : Pepe in place, scrotal swelling EXTREMITIES: trace edema. MITTS DERMATOLOGICAL: Multiple tattoos. Warm and dry. No generalized rash. CENTRAL NERVOUS SYSTEM: Moves all extremities and intubated. RUE-PICC ( POA) Labs Lab Laboratory Tests Test 12/31/18 07:45 12/31/18 17:13 12/31/18 23:54 01/01/19 05:35 O2 Saturation 96 % (92-99) Arterial Blood pH 7.50 (7.35-7.45) Arterial Blood pCO2 at Patient Temp 49 mmHg (35-46) Arterial Blood pO2 at Patient Temp 79 mmHg (75-108) Arterial Blood HCO3 38 mmol/L (21-28) Arterial Blood Base Excess 13 mmol/L (-3-3) FiO2 50 Glucose (Fingerstick) 269 mg/dL (70-99) 240 mg/dL (70-99) 238 mg/dL (70-99) Micro Microbiology 12/22/18 Anaerobic/Aerobic Culture - Preliminary, Resulted 12/22/18 Anaerobic Culture Result 1 (MELONY) - Preliminary, Resulted 12/22/18 Aerobic Culture - Final, Resulted 12/22/18 Aerobic Culture Result 1 (MELONY) - Final, Resulted 12/22/18 Gram Stain - Final, Resulted 12/22/18 Gram Stain Result 1 (MELONY) - Final, Resulted 12/22/18 Gram Stain Result 2 (MELONY) - Final, Resulted Objective Assessment Low grade temps - overall fever curve better - PICC not drawing Severe cholecystitis, status post cholecystectomy, 12/22/2018. Large pancreatic pseudocyst, status post open pancreatic pseudocyst gastrostomy , open cholecystectomy and gastrostomy tube placement on 12/22/2018. Leukopenia - better Anemia, likely postop blood loss.S/P PRBC transfusion, 12/25 Acute respiratory failure postop intubated. History of heavy alcohol dependence. Systolic congestive heart failure. Coronary artery disease, status post coronary artery bypass graft. Acute metabolic encephalopathy. History of fall with nasal fracture. History of atrial fibrillation. Severe protein-calorie malnutrition. Obesity hypoventilation syndrome, likely obstructive sleep apnea, has bilevel positive airway pressure at night. Plan Plan of Care Labs not obtained as PICC not drawing and lab has not come to obtain PICC line not drawing so will change F/u blood cults Cont Merrem since 12/25 began Vanc/Micafungin 12/31 F/u sputum cult - neg so far Monitor labs in am/temp Supportive care. Critically ill D/w nursing CHET WOODSON MD Jan 01, 2019 07:16
--- NOTE | 2019-01-01 07:42 | RAD ---
Portable chest, 01/01/2019: HISTORY: Respiratory failure Comparison is made to yesterday's study. The ET tube and right PICC remain in satisfactory positions. The heart is enlarged. There are ongoing hazy bibasilar opacities compatible with pleural fluid and underlying atelectasis/infiltrate. These are unchanged. The upper lung galeas remain clear. No new abnormality is detected. IMPRESSION: 1. Stable tube positions. 2. Unchanged bibasilar opacities compatible with pleural fluid and underlying atelectasis/infiltrate. Electronically signed by: Michoacano Bruce MD (01/01/2019 7:39 AM) [facility]
[2019-01-01 08:13] LABS: BASE EXCESS ABG 13 mmol/L (-3-3); HCO3 ABG 37 mmol/L (21-28); PCO2 ABG 49 mmHg (35-46); PO2 ABG 84 mmHg (75-108); SAT O2 ABG 96 % (92-99)
[2019-01-01 08:18] LABS: FIO2 ABG 45%
--- NOTE | 2019-01-01 09:40 | NUR ---
SS following up with discharge planning. SS phoned and faxed clinical updates to [facility], ; fax [phone]. SS will continue to follow for discharge planning.
[2019-01-01 09:46] LABS: BASE EXCESS ABG 12 mmol/L (-3-3); HCO3 ABG 36 mmol/L (21-28); PCO2 ABG 46 mmHg (35-46); PO2 ABG 68 mmHg (75-108); SAT O2 ABG 94 % (92-99)
[2019-01-01 09:48] LABS: BASO % 1 % (0-3); EOS # 0.2 x10^3/uL (0.0-0.7); EOS % 3 % (0-3); HEMATOCRIT 26.3 % (39.0-53.0); HEMOGLOBIN 8.3 g/dL (13.0-17.5); LYMPH # 0.7 x10^3/uL (1.0-4.8); LYMPH % 14 % (24-48); MEAN CORPUSCULAR HEMOGLOBIN 26 pg (25-35); MEAN CORPUSCULAR HGB CONC 32 g/dL (31-37); MEAN CORPUSCULAR VOLUME 83 fL (79-100); MONO # 0.6 x10^3/uL (0.0-1.1); MONO % 12 % (0-9); NEUT # 3.5 x10^3uL (1.8-7.7); NEUT % 71 % (31-73); PLATELET COUNT 203 x10^3/uL (140-400); RED BLOOD COUNT 3.19 x10^6/uL (4.30-5.70); RED CELL DISTRIBUTION WIDTH 18.5 % (11.5-14.5)
[2019-01-01 09:49] LABS: FIO2 ABG 40%
[2019-01-01 10:03] LABS: ALBUMIN/GLOBULIN RATIO 0.7 (1.0-1.7); CALCIUM 7.7 mg/dL (8.5-10.1); CREATININE 0.5 mg/dL (0.7-1.3); GFR 170.8; POTASSIUM 3.5 mmol/L (3.5-5.1); TOTAL BILIRUBIN 0.5 mg/dL (0.2-1.0); TOTAL PROTEIN 4.7 g/dL (6.4-8.2)
[2019-01-01 10:04] LABS: VANC TR 2.8 mcg/mL (10.0-20.0)
--- NOTE | 2019-01-01 10:11 | PDOC ---
PROGRESS NOTES Subjective Subjective on vent ,more awake today Objective Objective Vital Signs Date Time Temp Pulse Resp B/P (MAP) Pulse Ox O2 Delivery O2 Flow Rate FiO2 01/01/19 09:37 94 Ventilator 01/01/19 06:00 97 22 141/69 (93) 01/01/19 04:00 99.2 99.2 12/31/18 18:19 15.0 Intake and Output 01/01/19 07:00 Intake Total 3713 ml Output Total 4596 ml Balance -883 ml IV Total 2584 ml Tube Feeding 1079 ml Other 50 ml Output Urine Total 4575 ml Stool Total 1 ml Gastric Drainage Total 20 ml # Bowel Movements 3 Physical Exam Physical Exam orally intubated Abdomen: Soft, Other (incision healing, g tube) Heart: Regular rate, Normal S1, Normal S2, No murmurs, Gallops Extremities: Other (DIFFUSE EDEMA) General: No acute distress HEENT: Other (vent) Lungs: Clear to auscultation, Other (ON VENT) MUSCULOSKELETAL: No deformity, Other (+ EDEMA) Neuro: Other (SEDATED) Psych/Mental Status: Other (SEDATED) Skin: No breakdown COMMENT peg tube+rollins Assessment Assessment IMP: * Pancreatic pseudocyst+h/o necrotizing pancreatitis. 1. Acute respiratory failure on Vent. 2. Acute hypotension resolved , 3. Acute pancreatitis with pseudocyst. 4. Systolic congestive heart failure. 5. Coronary artery disease, history of coronary artery bypass graft x 5. 6. Acute metabolic encephalopathy. 7. History of fall with nasal fracture. 8. History of atrial fibrillation. 9. Hyperlipidemia. 10. Severe protein-calorie malnutrition. 11. Anemia. 12. Obesity hypoventilation syndrome, with likely obstructive sleep apnea, has been on BiPAP at night. PLAN: vent weaning , spoke with pulmonary POD #10,laparotomy, pancreatic pseudocyst surgery labs reviewed , stable cxr no change TPN for nutrition iv antibiotics maropenum+vanco+diflucan. dvt prevention. spoke with RT lasix prn seen in ICU Comment Review of Relevant I have reviewed the following items johanny (where applicable) has been applied. Labs Laboratory Tests Test 12/31/18 17:13 12/31/18 23:54 01/01/19 05:35 01/01/19 08:00 Glucose (Fingerstick) 269 mg/dL (70-99) 240 mg/dL (70-99) 238 mg/dL (70-99) O2 Saturation 96 % (92-99) Arterial Blood pH 7.50 (7.35-7.45) Arterial Blood pCO2 at Patient Temp 49 mmHg (35-46) Arterial Blood pO2 at Patient Temp 84 mmHg (75-108) Arterial Blood HCO3 37 mmol/L (21-28) Arterial Blood Base Excess 13 mmol/L (-3-3) FiO2 45% Test 01/01/19 09:10 01/01/19 09:42 White Blood Count 5.0 x10^3/uL (4.0-11.0) Red Blood Count 3.19 x10^6/uL (4.30-5.70) Hemoglobin 8.3 g/dL (13.0-17.5) Hematocrit 26.3 % (39.0-53.0) Mean Corpuscular Volume 83 fL (79-100) Mean Corpuscular Hemoglobin 26 pg (25-35) Mean Corpuscular Hemoglobin Concent 32 g/dL (31-37) Red Cell Distribution Width 18.5 % (11.5-14.5) Platelet Count 203 x10^3/uL (140-400) Neutrophils (%) (Auto) 71 % (31-73) Lymphocytes (%) (Auto) 14 % (24-48) Monocytes (%) (Auto) 12 % (0-9) Eosinophils (%) (Auto) 3 % (0-3) Basophils (%) (Auto) 1 % (0-3) Neutrophils # (Auto) 3.5 x10^3uL (1.8-7.7) Lymphocytes # (Auto) 0.7 x10^3/uL (1.0-4.8) Monocytes # (Auto) 0.6 x10^3/uL (0.0-1.1) Eosinophils # (Auto) 0.2 x10^3/uL (0.0-0.7) Basophils # (Auto) 0.0 x10^3/uL (0.0-0.2) Sodium Level 145 mmol/L (136-145) Potassium Level 3.5 mmol/L (3.5-5.1) Chloride Level 104 mmol/L (98-107) Carbon Dioxide Level 38 mmol/L (21-32) Anion Gap 3 (6-14) Blood Urea Nitrogen 15 mg/dL (8-26) Creatinine 0.5 mg/dL (0.7-1.3) Estimated GFR (Cockcroft-Gault) 170.8 BUN/Creatinine Ratio 30 (6-20) Glucose Level 260 mg/dL (70-99) Calcium Level 7.7 mg/dL (8.5-10.1) Total Bilirubin 0.5 mg/dL (0.2-1.0) Aspartate Amino Transf (AST/SGOT) 146 U/L (15-37) Alanine Aminotransferase (ALT/SGPT) 103 U/L (16-63) Alkaline Phosphatase 195 U/L (46-116) Total Protein 4.7 g/dL (6.4-8.2) Albumin 2.0 g/dL (3.4-5.0) Albumin/Globulin Ratio 0.7 (1.0-1.7) Vancomycin Level Trough 2.8 mcg/mL (10.0-20.0) Vancomycin Last Dose Date 01/01/19 Vancomycin Last Dose Time 0130 O2 Saturation 94 % (92-99) Arterial Blood pH 7.52 (7.35-7.45) Arterial Blood pCO2 at Patient Temp 46 mmHg (35-46) Arterial Blood pO2 at Patient Temp 68 mmHg (75-108) Arterial Blood HCO3 36 mmol/L (21-28) Arterial Blood Base Excess 12 mmol/L (-3-3) FiO2 40% Microbiology 12/31/18 Blood Culture - Preliminary, Resulted NO GROWTH AFTER 1 DAY 12/27/18 - Final, Complete 12/27/18 - Final, Complete 12/27/18 - Final, Complete 12/27/18 Gram Stain Evaluation - Final, Complete 12/27/18 Sputum Culture - Final, Complete 12/27/18 Sputum Result 1 - Final, Complete 12/22/18 Anaerobic/Aerobic Culture - Final, Complete 12/22/18 Anaerobic Culture Result 1 (MELONY) - Final, Complete 12/22/18 Aerobic Culture - Final, Complete 12/22/18 Aerobic Culture Result 1 (MELONY) - Final, Complete 12/22/18 Gram Stain - Final, Complete 12/22/18 Gram Stain Result 1 (MELONY) - Final, Complete 12/22/18 Gram Stain Result 2 (MELONY) - Final, Complete Medications Current Medications Sodium Chloride 110 meq/Sodium Acetate 12 meq/ Potassium Chloride 60 meq/ Potassium Phosphate 20 mmol/ Magnesium Sulfate 28 meq/Calcium Gluconate 9.3 meq / Multivitamins 10 ml/Chromium/ Copper/Manganese/ Seleni/Zn 1 ml/ Insulin Human Regular 100 unit/ Total Parenteral Nutrition/Amino Acids/Dextro... 1,800 ml @ 75 mls/hr TPN CONT IV Last administered on 12/31/18at 22:24; Start 12/31/18 at 22 :00; Stop 01/01/19 at 21:59 Vancomycin HCl (Vancomycin Trough Level) 1 each 1X ONCE MC ; Start 01/01/19 at 09:00; Stop 01/01/19 at 09:01; Status DC Vitals/I & O Vital Sign - Last 24 Hours 12/31/18 12/31/18 12/31/18 12/31/18 11:00 11:40 12:00 12:00 Pulse 90 89 Resp 25 25 B/P (MAP) 156/74 (101) 125/74 (91) Pulse Ox 95 98 95 O2 Delivery Ventilator Ventilator Mechanical Ventilator Ventilator 12/31/18 12/31/18 12/31/18 12/31/18 12:16 12:50 13:00 14:00 Pulse 89 90 Resp 25 25 B/P (MAP) 134/65 (88) 132/65 (87) Pulse Ox 98 95 95 95 O2 Delivery Ventilator Ventilator Ventilator O2 Flow Rate 15.0 12/31/18 12/31/18 12/31/18 12/31/18 15:00 15:20 16:00 16:00 Pulse 92 92 Resp 25 25 B/P (MAP) 124/65 (84) 132/60 (84) Pulse Ox 95 97 95 O2 Delivery Ventilator Ventilator Mechanical Ventilator Ventilator 12/31/18 12/31/18 12/31/18 12/31/18 17:00 17:24 17:35 17:47 Temp 98.9 98.9 Pulse 90 Resp 25 20 B/P (MAP) 129/77 (94) Pulse Ox 95 96 97 O2 Delivery Ventilator Ventilator Mechanical Ventilator Ventilator 12/31/18 12/31/18 12/31/18 12/31/18 18:00 18:19 19:00 19:50 Pulse 90 94 Resp 25 24 B/P (MAP) 158/74 (102) 141/71 (94) Pulse Ox 95 97 97 O2 Delivery Ventilator Ventilator Ventilator O2 Flow Rate 15.0 12/31/18 12/31/18 12/31/18 12/31/18 19:51 20:00 21:00 22:00 Temp 98.4 98.4 Pulse 90 86 96 Resp 24 B/P (MAP) 159/83 (108) 164/71 (102) 165/79 (107) Pulse Ox 97 96 96 O2 Delivery Mechanical Ventilator Ventilator Ventilator Ventilator 12/31/18 12/31/18 12/31/18 12/31/18 22:20 23:00 23:00 23:41 Pulse 103 Resp B/P (MAP) 180/78 (112) Pulse Ox 96 96 96 96 O2 Delivery Ventilator Ventilator Ventilator Ventilator 01/01/19 01/01/19 01/01/19 01/01/19 00:00 00:04 01:00 01:44 Temp 99.5 99.5 Pulse 101 98 Resp B/P (MAP) 161/83 (109) 155/80 (105) Pulse Ox 97 98 96 O2 Delivery Ventilator Mechanical Ventilator Ventilator Ventilator 01/01/19 01/01/19 01/01/19 01/01/19 02:00 03:00 04:00 04:00 Temp 99.2 99.2 Pulse 98 103 100 Resp 23 B/P (MAP) 174/84 (114) 176/78 (110) 175/92 (119) Pulse Ox 97 96 97 O2 Delivery Ventilator Ventilator Mechanical Ventilator Ventilator 01/01/19 01/01/19 01/01/19 01/01/19 04:10 05:00 05:58 06:00 Pulse 105 97 Resp B/P (MAP) 157/76 (103) 141/69 (93) Pulse Ox 97 97 97 95 O2 Delivery Ventilator Ventilator Ventilator Ventilator 01/01/19 01/01/19 01/01/19 01/01/19 07:47 08:00 08:42 09:05 Pulse Ox 96 95 95 O2 Delivery Ventilator Mechanical Ventilator Ventilator Ventilator 01/01/19 09:37 Pulse Ox 94 O2 Delivery Ventilator Intake and Output 12/31/18 12/31/18 01/01/19 15:00 23:00 07:00 Intake Total 850 ml 1235 ml 1628 ml Output Total 401 ml 1605 ml 2590 ml Balance 449 ml -370 ml -962 ml ARMANDO MCCORMICK MD Jan 01, 2019:11
[2019-01-01] MEDS: PANTOPRAZOLE IV PUSH 40 MG VIAL. IVP SCH (10:19)
[2019-01-01] MEDS: MICAFUNGIN 100 MG in IV DEXTROSE 5% 100ML 100 ML IV SCH (10:19)
--- NOTE | 2019-01-01 10:24 | PDOC ---
PULMONARY PROGRESS NOTES Subjective OFF SEDATION/ MORE AWAKE ON CPAP TRIAL TODAY Vitals Vital Signs Date Time Temp Pulse Resp B/P (MAP) Pulse Ox O2 Delivery O2 Flow Rate FiO2 01/01/19 09:37 94 Ventilator 01/01/19 06:00 97 22 141/69 (93) 01/01/19 04:00 99.2 99.2 12/31/18 18:19 15.0 General: Alert Lungs: Other (decrease bs) Cardiovascular: S1, S2 Abdomen: Soft, Other (G TUBE) Extremities: Other (EDEMA) Skin: Warm Labs Laboratory Tests Test 12/30/18 12:46 12/30/18 16:58 12/30/18 23:57 12/31/18 05:24 Glucose (Fingerstick) 234 mg/dL (70-99) 212 mg/dL (70-99) 267 mg/dL (70-99) White Blood Count 5.9 x10^3/uL (4.0-11.0) Red Blood Count 3.04 x10^6/uL (4.30-5.70) Hemoglobin 8.2 g/dL (13.0-17.5) Hematocrit 25.2 % (39.0-53.0) Mean Corpuscular Volume 83 fL (79-100) Mean Corpuscular Hemoglobin 27 pg (25-35) Mean Corpuscular Hemoglobin Concent 33 g/dL (31-37) Red Cell Distribution Width 18.9 % (11.5-14.5) Platelet Count 207 x10^3/uL (140-400) Neutrophils (%) (Auto) 68 % (31-73) Lymphocytes (%) (Auto) 15 % (24-48) Monocytes (%) (Auto) 14 % (0-9) Eosinophils (%) (Auto) 2 % (0-3) Basophils (%) (Auto) 1 % (0-3) Neutrophils # (Auto) 4.0 x10^3uL (1.8-7.7) Lymphocytes # (Auto) 0.9 x10^3/uL (1.0-4.8) Monocytes # (Auto) 0.8 x10^3/uL (0.0-1.1) Eosinophils # (Auto) 0.1 x10^3/uL (0.0-0.7) Basophils # (Auto) 0.0 x10^3/uL (0.0-0.2) Sodium Level 142 mmol/L (136-145) Potassium Level 3.5 mmol/L (3.5-5.1) Chloride Level 100 mmol/L (98-107) Carbon Dioxide Level 40 mmol/L (21-32) Anion Gap 2 (6-14) Blood Urea Nitrogen 16 mg/dL (8-26) Creatinine 0.5 mg/dL (0.7-1.3) Estimated GFR (Cockcroft-Gault) 170.8 BUN/Creatinine Ratio 32 (6-20) Glucose Level 267 mg/dL (70-99) Calcium Level 8.1 mg/dL (8.5-10.1) Phosphorus Level 3.4 mg/dL (2.6-4.7) Magnesium Level 1.8 mg/dL (1.8-2.4) Total Bilirubin 0.6 mg/dL (0.2-1.0) Aspartate Amino Transf (AST/SGOT) 32 U/L (15-37) Alanine Aminotransferase (ALT/SGPT) 20 U/L (16-63) Alkaline Phosphatase 166 U/L (46-116) Total Protein 5.5 g/dL (6.4-8.2) Albumin 2.1 g/dL (3.4-5.0) Albumin/Globulin Ratio 0.6 (1.0-1.7) Test 12/31/18 06:13 12/31/18 07:45 12/31/18 17:13 12/31/18 23:54 Glucose (Fingerstick) 261 mg/dL (70-99) 269 mg/dL (70-99) 240 mg/dL (70-99) O2 Saturation 96 % (92-99) Arterial Blood pH 7.50 (7.35-7.45) Arterial Blood pCO2 at Patient Temp 49 mmHg (35-46) Arterial Blood pO2 at Patient Temp 79 mmHg (75-108) Arterial Blood HCO3 38 mmol/L (21-28) Arterial Blood Base Excess 13 mmol/L (-3-3) FiO2 50 Test 01/01/19 05:35 01/01/19 08:00 01/01/19 09:10 01/01/19 09:42 Glucose (Fingerstick) 238 mg/dL (70-99) O2 Saturation 96 % (92-99) 94 % (92-99) Arterial Blood pH 7.50 (7.35-7.45) 7.52 (7.35-7.45) Arterial Blood pCO2 at Patient Temp 49 mmHg (35-46) 46 mmHg (35-46) Arterial Blood pO2 at Patient Temp 84 mmHg (75-108) 68 mmHg (75-108) Arterial Blood HCO3 37 mmol/L (21-28) 36 mmol/L (21-28) Arterial Blood Base Excess 13 mmol/L (-3-3) 12 mmol/L (-3-3) FiO2 45% 40% White Blood Count 5.0 x10^3/uL (4.0-11.0) Red Blood Count 3.19 x10^6/uL (4.30-5.70) Hemoglobin 8.3 g/dL (13.0-17.5) Hematocrit 26.3 % (39.0-53.0) Mean Corpuscular Volume 83 fL (79-100) Mean Corpuscular Hemoglobin 26 pg (25-35) Mean Corpuscular Hemoglobin Concent 32 g/dL (31-37) Red Cell Distribution Width 18.5 % (11.5-14.5) Platelet Count 203 x10^3/uL (140-400) Neutrophils (%) (Auto) 71 % (31-73) Lymphocytes (%) (Auto) 14 % (24-48) Monocytes (%) (Auto) 12 % (0-9) Eosinophils (%) (Auto) 3 % (0-3) Basophils (%) (Auto) 1 % (0-3) Neutrophils # (Auto) 3.5 x10^3uL (1.8-7.7) Lymphocytes # (Auto) 0.7 x10^3/uL (1.0-4.8) Monocytes # (Auto) 0.6 x10^3/uL (0.0-1.1) Eosinophils # (Auto) 0.2 x10^3/uL (0.0-0.7) Basophils # (Auto) 0.0 x10^3/uL (0.0-0.2) Sodium Level 145 mmol/L (136-145) Potassium Level 3.5 mmol/L (3.5-5.1) Chloride Level 104 mmol/L (98-107) Carbon Dioxide Level 38 mmol/L (21-32) Anion Gap 3 (6-14) Blood Urea Nitrogen 15 mg/dL (8-26) Creatinine 0.5 mg/dL (0.7-1.3) Estimated GFR (Cockcroft-Gault) 170.8 BUN/Creatinine Ratio 30 (6-20) Glucose Level 260 mg/dL (70-99) Calcium Level 7.7 mg/dL (8.5-10.1) Total Bilirubin 0.5 mg/dL (0.2-1.0) Aspartate Amino Transf (AST/SGOT) 146 U/L (15-37) Alanine Aminotransferase (ALT/SGPT) 103 U/L (16-63) Alkaline Phosphatase 195 U/L (46-116) Total Protein 4.7 g/dL (6.4-8.2) Albumin 2.0 g/dL (3.4-5.0) Albumin/Globulin Ratio 0.7 (1.0-1.7) Vancomycin Level Trough 2.8 mcg/mL (10.0-20.0) Vancomycin Last Dose Date 01/01/19 Vancomycin Last Dose Time 013 Laboratory Tests Test 12/31/18 17:13 12/31/18 23:54 01/01/19 05:35 01/01/19 08:00 Glucose (Fingerstick) 269 mg/dL (70-99) 240 mg/dL (70-99) 238 mg/dL (70-99) O2 Saturation 96 % (92-99) Arterial Blood pH 7.50 (7.35-7.45) Arterial Blood pCO2 at Patient Temp 49 mmHg (35-46) Arterial Blood pO2 at Patient Temp 84 mmHg (75-108) Arterial Blood HCO3 37 mmol/L (21-28) Arterial Blood Base Excess 13 mmol/L (-3-3) FiO2 45% Test 01/01/19 09:10 01/01/19 09:42 White Blood Count 5.0 x10^3/uL (4.0-11.0) Red Blood Count 3.19 x10^6/uL (4.30-5.70) Hemoglobin 8.3 g/dL (13.0-17.5) Hematocrit 26.3 % (39.0-53.0) Mean Corpuscular Volume 83 fL (79-100) Mean Corpuscular Hemoglobin 26 pg (25-35) Mean Corpuscular Hemoglobin Concent 32 g/dL (31-37) Red Cell Distribution Width 18.5 % (11.5-14.5) Platelet Count 203 x10^3/uL (140-400) Neutrophils (%) (Auto) 71 % (31-73) Lymphocytes (%) (Auto) 14 % (24-48) Monocytes (%) (Auto) 12 % (0-9) Eosinophils (%) (Auto) 3 % (0-3) Basophils (%) (Auto) 1 % (0-3) Neutrophils # (Auto) 3.5 x10^3uL (1.8-7.7) Lymphocytes # (Auto) 0.7 x10^3/uL (1.0-4.8) Monocytes # (Auto) 0.6 x10^3/uL (0.0-1.1) Eosinophils # (Auto) 0.2 x10^3/uL (0.0-0.7) Basophils # (Auto) 0.0 x10^3/uL (0.0-0.2) Sodium Level 145 mmol/L (136-145) Potassium Level 3.5 mmol/L (3.5-5.1) Chloride Level 104 mmol/L (98-107) Carbon Dioxide Level 38 mmol/L (21-32) Anion Gap 3 (6-14) Blood Urea Nitrogen 15 mg/dL (8-26) Creatinine 0.5 mg/dL (0.7-1.3) Estimated GFR (Cockcroft-Gault) 170.8 BUN/Creatinine Ratio 30 (6-20) Glucose Level 260 mg/dL (70-99) Calcium Level 7.7 mg/dL (8.5-10.1) Total Bilirubin 0.5 mg/dL (0.2-1.0) Aspartate Amino Transf (AST/SGOT) 146 U/L (15-37) Alanine Aminotransferase (ALT/SGPT) 103 U/L (16-63) Alkaline Phosphatase 195 U/L (46-116) Total Protein 4.7 g/dL (6.4-8.2) Albumin 2.0 g/dL (3.4-5.0) Albumin/Globulin Ratio 0.7 (1.0-1.7) Vancomycin Level Trough 2.8 mcg/mL (10.0-20.0) Vancomycin Last Dose Date 01/01/19 Vancomycin Last Dose Time 0130 O2 Saturation 94 % (92-99) Arterial Blood pH 7.52 (7.35-7.45) Arterial Blood pCO2 at Patient Temp 46 mmHg (35-46) Arterial Blood pO2 at Patient Temp 68 mmHg (75-108) Arterial Blood HCO3 36 mmol/L (21-28) Arterial Blood Base Excess 12 mmol/L (-3-3) FiO2 40% Medications Active Scripts Medications Dose Route/Sig Max Daily Dose Days Date Category Trophamine (Amino Acids 10 %) 500 Ml Iv.soln 500 Ml IV DAILY 199912/21/18 Reported Duoneb 0.5-3(2.5) Mg/3 Ml (Albuterol/Ipratropium) 3 Ml Ampul.neb 3 Ml NEB BID 12/21/18 Reported Dulcolax (Bisacodyl) 10 Mg Supp.rect 10 Mg RC PRN DAILY PRN 12/21/18 Reported Duoneb 0.5-3(2.5) Mg/3 Ml (Albuterol/Ipratropium) 3 Ml Ampul.neb 3 Ml NEB PRN Q4HRS PRN 12/21/18 Reported Atorvastatin Calcium 40 Mg Tablet 1 Tab PO QHS 12/21/18 Reported Simethicone 80 Mg Tab.chew 80 Mg PO PRN TID PRN 12/21/18 Reported Humalog (Insulin Lispro) 100 Unit/1 Ml Vial 0 SQ Q6HRS 12/21/18 Reported Ondansetron Hcl 4 Mg/2 Ml Vial (Ondansetron Hcl/Pf) 4 Mg/2 Ml Vial 4 Mg IJ PRN Q6HRS PRN 12/21/18 Reported Actos (Pioglitazone Hcl) 15 Mg Tablet 1 Tab PO DAILY 12/21/18 Reported Tylenol Extra Strength (Acetaminophen) 500 Mg Tablet 1,000 Mg PO PRN Q6HRS PRN 12/21/18 Reported Senokot-S Tablet (Sennosides/Docusate Sodium) 1 Each Tablet 1 Tab PO BID 12/21/18 Reported Vitamin D3 (Cholecalciferol (Vitamin D3)) 1,000 Unit Tablet 1 Tab PO DAILY 12/21/18 Reported Carvedilol (Carvedilol) 12.5 Mg Tablet 12.5 Mg PO BIDWMEALS 3/25/19 Reported Comments CXR 01/01 IMPRESSION: Small right effusions with adjacent infiltrates ( R>L). No change. Impression . 1. Expected hypoxemic respiratory failure, status post open pancreatic pseudocyst gastrostomy, open cholecystectomy, G-tube placement. 2. History of necrotizing pancreatitis. 3. Abnormal x-ray c/w basal effusions/ Mild CHF 4. Possible sepsis. 5. Coronary artery disease, status post coronary artery bypass grafting. 6. History of alcoholism. 7. Protein malnutrition, present upon admission. 8. Acute blood loss anemia, expected. S/P TRANSFUSIONS 9. encephalopathy/ sedation induced./ improving 10. Worsening LFT's Today Plan . OFF SEDATION/ WEAK BUT MORE AWAKE INITIATED ON CPAP LIKELY EXTUBATION IN 24 HRS WEAN FIO2 AND PEEP SLOWLY MAKING MILD PROGRESS OFF PRESSORS ABG NOTED INCREASE LFT NOTED/ AWAIT GI INPUT TPN FOR NUTRITION DVT PROPH FOLLOW CONSULTANTS INPUT DIURESIS FOLLOW CXR ABX PER STEVIE RAYGOZA MD Jan 01, 2019 10:24
--- NOTE | 2019-01-01 10:50 | PDOC ---
SUBJECTIVE ROS Intubated, alert OBJECTIVE Vital Signs Vital Signs Date Time Temp Pulse Resp B/P (MAP) Pulse Ox O2 Delivery O2 Flow Rate FiO2 01/01/19 09:37 94 Ventilator 01/01/19 06:00 97 22 141/69 (93) 01/01/19 04:00 99.2 99.2 12/31/18 18:19 15.0 I & 0 Intake and Output 01/01/19 07:00 Intake Total 3713 ml Output Total 4596 ml Balance -883 ml IV Total 2584 ml Tube Feeding 1079 ml Other 50 ml Output Urine Total 4575 ml Stool Total 1 ml Gastric Drainage Total 20 ml # Bowel Movements 3 PHYSICAL EXAM Physical Exam GENERAL: Intubated , alert HEENT: Intubated LUNGS: CTA HEART: S1 and S2. ABDOMEN: Obese, soft, midline incision : Pepe in place, scrotal swelling EXTREMITIES: trace edema. SKIN: Multiple tattoos CENTRAL NERVOUS SYSTEM: Moves all extremities and intubated. DIAGNOSIS/ASSESSMENT Assessment & Plan Edema- Due to 3 rd spacing Low Albumin Wt down since Hospitalization Can decrease Lasix to Q 12 hrs Monitor Pancreatic Pseudocyst Resection Expected hypoxemic respiratory failure, status post open pancreatic pseudocyst gastrostomy, open cholecystectomy, G-tube placement. - Intubated, No plans for extubation today DM II Hx of ETOH abuse COMMENT/RELEVANT DATA Meds Current Medications Medications (Trade) Dose Ordered Sig/Nicola Start Time Stop Time Status Last Admin Dose Admin Acetaminophen (Tylenol Supp) 650 mg PRN Q6HRS PRN 12/31/18 08:15 12/31/18 08:42 650 MG Albumin Human 100 ml @ 100 mls/hr 1X ONCE 12/30/18 10:30 12/30/18 11:29 DC 12/30/18 11:57 100 MLS/HR Bisacodyl (Dulcolax Supp) 10 mg PRN DAILY PRN 12/30/18 09:00 12/30/18 09:06 10 MG Bupivacaine HCl/ Epinephrine Bitart (Sensorcain-Mpf Epi 0.5%-1:[id number]) 30 ml STK-MED ONCE 12/22/18 07:03 12/22/18 08:05 DC 12/22/18 12:23 5 ML Cefazolin Sodium/ Dextrose (Ancef 2gm Premix) 2 gm STK-MED ONCE 12/22/18 12:00 12/23/18 12:38 DC Cellulose (Surgicel Hemostat 4x8) 1 each STK-MED ONCE 12/22/18 07:03 12/22/18 08:05 DC 12/22/18 13:58 1 EACH Chlorhexidine Gluconate (Peridex) 15 ml BID 12/22/18 21:00 12/26/18 07:46 DC 12/25/18 21:12 15 ML Dexamethasone Sodium Phosphate (Decadron) 20 mg STK-MED ONCE 12/22/18 09:59 12/22/18 10:00 DC Dextrose (Dextrose 50%-Water Syringe) 12.5 gm PRN Q15MIN PRN 12/30/18 10:30 Dopamine HCl/ Dextrose 250 ml @ 8.686 mls/ hr CONT PRN 12/22/18 17:45 12/24/18 21:56 21.714 MLS/HR Enoxaparin Sodium (Lovenox 40mg Syringe) 40 mg Q24H 12/23/18 09:00 12/26/18 09:48 DC 12/24/18 08:25 40 MG Ephedrine Sulfate (Akovaz) 50 mg STK-MED ONCE 12/22/18 13:52 12/22/18 13:53 DC Ephedrine Sulfate (ePHEDrine PF IN SALINE SYRINGE) 50 mg STK-MED ONCE 12/22/18 14:29 12/22/18 14:30 DC Famotidine (Pepcid Vial) 20 mg STK-MED ONCE 12/22/18 09:59 12/22/18 10:00 DC Fentanyl Citrate (Fentanyl 2ml Vial) 100 mcg STK-MED ONCE 12/22/18 10:01 12/22/18 10:02 DC Furosemide (Lasix) 40 mg Q8H 12/29/18 12:00 01/01/19 04:48 40 MG Glycopyrrolate (Robinul) 1 mg STK-MED ONCE 12/22/18 12:28 12/22/18 12:29 DC Heparin Sodium (Porcine) 1000 unit/Sodium Chloride 1,001 ml @ 1,001 mls/hr 1X ONCE 12/22/18 06:00 12/22/18 06:59 DC 12/22/18 12:56 Hydromorphone HCl (Dilaudid) 0.5 mg PRN Q10MIN PRN 12/22/18 07:00 12/22/18 19:00 DC Ibuprofen (Motrin) 200 mg 1X PREOP 12/22/18 08:00 12/23/18 12:33 DC Info (Tpn Per Pharmacy) 1 each PRN DAILY PRN 12/23/18 09:15 12/31/18 13:36 1 EACH Insulin Human Lispro (HumaLOG) 0-7 UNITS TIDWMEALS 12/30/18 12:00 UNV Iohexol (Omnipaque 300 Mg/ml) 100 ml STK-MED ONCE 12/22/18 07:03 12/22/18 08:05 DC 12/22/18 12:24 100 ML Lidocaine HCl (Lidocaine Pf 2% Vial) 5 ml STK-MED ONCE 12/22/18 09:59 12/22/18 10:00 DC Linezolid/Dextrose 300 ml @ 300 mls/hr Q12HR 12/24/18 09:00 12/25/18 09:18 DC 12/25/18 08:41 300 MLS/HR Magnesium Sulfate 50 ml @ 25 mls/hr 1X ONCE 12/30/18 12:15 12/30/18 14:14 DC 12/30/18 12:50 25 MLS/HR Magnesium Sulfate/ Dextrose 100 ml @ 100 mls/hr 1X ONCE 12/27/18 14:00 12/27/18 14:59 DC 12/27/18 13:16 100 MLS/HR Meropenem 500 mg/ Sodium Chloride 50 ml @ 100 mls/hr Q6HRS 12/25/18 12:00 01/01/19 05:35 100 MLS/HR Metronidazole 100 ml @ 100 mls/hr Q12HR 12/22/18 21:00 12/27/18 10:04 DC 12/27/18 08:28 100 MLS/HR Micafungin Sodium 100 mg/Dextrose 100 ml @ 100 mls/hr Q24H 12/31/18 10:00 01/01/19 10:19 100 MLS/HR Midazolam HCl 100 ml @ 0 mls/hr CONT PRN 12/22/18 15:30 12/29/18 16:27 DC 12/29/18 00:23 5 MLS/HR Midazolam HCl (Versed) 2 mg STK-MED ONCE 12/22/18 10:00 12/22/18 10:01 DC Morphine Sulfate (Morphine Sulfate) 2 mg PRN Q2HR PRN 12/29/18 16:30 12/31/18 22:20 2 MG Naloxone HCl (Narcan) 0.4 mg PRN Q2MIN PRN 12/22/18 14:45 Neostigmine Methylsulfate (Neostigmine Methylsulfate) 5 mg STK-MED ONCE 12/22/18 12:29 12/22/18 12:30 DC Ondansetron HCl (Zofran) 4 mg PRN Q6HRS PRN 12/22/18 14:45 Pantoprazole Sodium (PROTONIX VIAL for IV PUSH) 40 mg DAILYAC 12/23/18 10:30 01/01/19 10:19 40 MG Phenylephrine HCl (Jeromy-Synephrine Inj) 10 mg STK-MED ONCE 12/22/18 12:49 12/22/18 12:50 DC Phenylephrine HCl (PHENYLEPHRINE in 0.9% NACL PF) 1 mg STK-MED ONCE 12/22/18 12:39 12/22/18 12:40 DC Piperacillin Sod/ Tazobactam Sod 3.375 gm/Sodium Chloride 50 ml @ 100 mls/hr Q6HRS 12/23/18 18:00 12/25/18 09:18 DC 12/25/18 06:13 100 MLS/HR Potassium Chloride/Water 50 ml @ 50 mls/hr Q1H 12/25/18 10:00 12/25/18 11:59 DC 12/25/18 11:58 50 MLS/HR Potassium Phosphate 10 mmol/ Dextrose 103.3333 ml @ 51.667 m... Q2H 12/24/18 10:30 12/24/18 14:29 DC 12/24/18 13:02 51.667 MLS/HR Prochlorperazine Edisylate (Compazine) 5 mg PACU PRN PRN 12/22/18 07:00 12/22/18 19:00 DC Propofol 100 ml @ 1.621 mls/ hr CONT PRN 12/29/18 16:30 Ringer's Solution 1,000 ml @ 100 mls/hr Q10H 12/22/18 16:00 12/25/18 15:08 DC 12/25/18 07:08 100 MLS/HR Rocuronium Rembert (Zemuron) 50 mg STK-MED ONCE 12/22/18 13:52 12/22/18 13:53 DC Sevoflurane (Ultane) 90 ml STK-MED ONCE 12/22/18 12:35 12/22/18 12:36 DC Sodium Chloride (Normal Saline Flush) 3 ml QSHIFT PRN 12/22/18 14:45 Sodium Chloride 110 meq/Sodium Acetate 12 meq/ Potassium Chloride 36 meq/ Magnesium Sulfate 12 meq/Calcium Gluconate 9.3 meq/ Multivitamins 10 ml/Chromium/ Copper/Manganese/ Seleni/Zn 1 ml/ Insulin Human Regular 70 unit/ Total Parenteral Nutrition/Amino Acids/Dextrose/ Fat Emulsion Intravenous 2,400 ml @ 100 mls/hr TPN CONT 12/23/18 22:00 12/24/18 21:59 DC 12/23/18 22:15 100 MLS/HR Sodium Chloride 110 meq/Sodium Acetate 12 meq/ Potassium Chloride 50 meq/ Potassium Phosphate 20 mmol/ Magnesium Sulfate 20 meq/Calcium Gluconate 9.3 meq/ Multivitamins 10 ml/Chromium/ Copper/Manganese/ Seleni/Zn 1 ml/ Insulin Human Regular 80 unit/ Total Parenteral Nutrition/Amino Acids/Dextro... 2,400 ml @ 100 mls/hr TPN CONT 12/24/18 22:00 12/25/18 21:59 DC 12/24/18 23:24 100 MLS/HR Sodium Chloride 110 meq/Sodium Acetate 12 meq/ Potassium Chloride 60 meq/ Potassium Phosphate 20 mmol/ Magnesium Sulfate 25 meq/Calcium Gluconate 9.3 meq/ Multivitamins 10 ml/Chromium/ Copper/Manganese/ Seleni/Zn 1 ml/ Insulin Human Regular 85 unit/ Total Parenteral Nutrition/Amino Acids/Dextro... 1,800 ml @ 75 mls/hr TPN CONT 12/28/18 22:00 12/29/18 21:59 DC 12/28/18 22:25 75 MLS/HR Sodium Chloride 110 meq/Sodium Acetate 12 meq/ Potassium Chloride 60 meq/ Potassium Phosphate 20 mmol/ Magnesium Sulfate 25 meq/Calcium Gluconate 9.3 meq/ Multivitamins 10 ml/Chromium/ Copper/Manganese/ Seleni/Zn 1 ml/ Insulin Human Regular 90 unit/ Total Parenteral Nutrition/Amino Acids/Dextro... 1,800 ml @ 75 mls/hr TPN CONT 12/29/18 22:00 12/30/18 21:59 DC 12/29/18 22:17 75 MLS/HR Sodium Chloride 110 meq/Sodium Acetate 12 meq/ Potassium Chloride 60 meq/ Potassium Phosphate 20 mmol/ Magnesium Sulfate 28 meq/Calcium Gluconate 9.3 meq/ Multivitamins 10 ml/Chromium/ Copper/Manganese/ Seleni/Zn 1 ml/ Insulin Human Regular 100 unit/ Total Parenteral Nutrition/Amino Acids/Dextro... 1,800 ml @ 75 mls/hr TPN CONT 12/31/18 22:00 01/01/19 21:59 12/31/18 22:24 75 MLS/HR Vancomycin HCl (Vanco Per Pharmacy) 1 each PRN DAILY PRN 12/31/18 08:15 12/31/18 13:38 1 EACH Vancomycin HCl (Vancomycin Trough Level) 1 each 1X ONCE 01/01/19 09:00 01/01/19 09:01 DC 01/01/19 09:00 1 EACH Vancomycin HCl 2 gm/Sodium Chloride 500 ml @ 250 mls/hr 1X ONCE 12/31/18 09:00 12/31/18 10:59 DC 12/31/18 09:29 250 MLS/HR Lab Laboratory Tests Test 12/31/18 17:13 12/31/18 23:54 01/01/19 05:35 01/01/19 08:00 Glucose (Fingerstick) 269 mg/dL (70-99) 240 mg/dL (70-99) 238 mg/dL (70-99) O2 Saturation 96 % (92-99) Arterial Blood pH 7.50 (7.35-7.45) Arterial Blood pCO2 at Patient Temp 49 mmHg (35-46) Arterial Blood pO2 at Patient Temp 84 mmHg (75-108) Arterial Blood HCO3 37 mmol/L (21-28) Arterial Blood Base Excess 13 mmol/L (-3-3) FiO2 45% Test 01/01/19 09:10 01/01/19 09:42 White Blood Count 5.0 x10^3/uL (4.0-11.0) Red Blood Count 3.19 x10^6/uL (4.30-5.70) Hemoglobin 8.3 g/dL (13.0-17.5) Hematocrit 26.3 % (39.0-53.0) Mean Corpuscular Volume 83 fL (79-100) Mean Corpuscular Hemoglobin 26 pg (25-35) Mean Corpuscular Hemoglobin Concent 32 g/dL (31-37) Red Cell Distribution Width 18.5 % (11.5-14.5) Platelet Count 203 x10^3/uL (140-400) Neutrophils (%) (Auto) 71 % (31-73) Lymphocytes (%) (Auto) 14 % (24-48) Monocytes (%) (Auto) 12 % (0-9) Eosinophils (%) (Auto) 3 % (0-3) Basophils (%) (Auto) 1 % (0-3) Neutrophils # (Auto) 3.5 x10^3uL (1.8-7.7) Lymphocytes # (Auto) 0.7 x10^3/uL (1.0-4.8) Monocytes # (Auto) 0.6 x10^3/uL (0.0-1.1) Eosinophils # (Auto) 0.2 x10^3/uL (0.0-0.7) Basophils # (Auto) 0.0 x10^3/uL (0.0-0.2) Sodium Level 145 mmol/L (136-145) Potassium Level 3.5 mmol/L (3.5-5.1) Chloride Level 104 mmol/L (98-107) Carbon Dioxide Level 38 mmol/L (21-32) Anion Gap 3 (6-14) Blood Urea Nitrogen 15 mg/dL (8-26) Creatinine 0.5 mg/dL (0.7-1.3) Estimated GFR (Cockcroft-Gault) 170.8 BUN/Creatinine Ratio 30 (6-20) Glucose Level 260 mg/dL (70-99) Calcium Level 7.7 mg/dL (8.5-10.1) Total Bilirubin 0.5 mg/dL (0.2-1.0) Aspartate Amino Transf (AST/SGOT) 146 U/L (15-37) Alanine Aminotransferase (ALT/SGPT) 103 U/L (16-63) Alkaline Phosphatase 195 U/L (46-116) Total Protein 4.7 g/dL (6.4-8.2) Albumin 2.0 g/dL (3.4-5.0) Albumin/Globulin Ratio 0.7 (1.0-1.7) Vancomycin Level Trough 2.8 mcg/mL (10.0-20.0) Vancomycin Last Dose Date 01/01/19 Vancomycin Last Dose Time 0130 O2 Saturation 94 % (92-99) Arterial Blood pH 7.52 (7.35-7.45) Arterial Blood pCO2 at Patient Temp 46 mmHg (35-46) Arterial Blood pO2 at Patient Temp 68 mmHg (75-108) Arterial Blood HCO3 36 mmol/L (21-28) Arterial Blood Base Excess 12 mmol/L (-3-3) FiO2 40% Results All relevant outside records, renal labs, imaging studies, telemetry/EKG's were reviewed .1. Stable tube positions. 2. Unchanged bibasilar opacities compatible with pleural fluid and underlying atelectasis/infiltrate. NILAY SINGLETARY MD Jan 01, 2019 10:50
[2019-01-01] MEDS: VANCOMYCIN PER PHARMACY MC PRN (10:52)
--- NOTE | 2019-01-01 10:53 | NUR ---
Pharmacy Vancomycin Dosing Note S: Consulted to monitor and dose vancomycin started 12/31/18. O: JUSTIN OLSEN is a 58 year old M with Empiric, Fever . Other Antibiotics: Merrem,Mycamine LABS: Last BUN: 15 Last Creatinine: 0.5 Creatinine Clearance: >100 mL/min Last WBC: 5.0 Tmax (past 24 hours): 99.2 Drug Levels: Last Trough level: 2.8 on 01/01/19 at 0900 Last dose given 12/31/18 at 0929 Vancomycin Dosing: Dosing Weight: Actual Target Trough: 15-20 A: Based on: Subtherapeutic trough level P: 1. Give Vancomycin 1500 mg IV q8h 2. Follow up Trough level on 01/02/19 at 1030 3. Pharmacy will continue to monitor, follow and adjust therapy as needed. [facility], 01/01/19 0249
--- NOTE | 2019-01-01 11:07 | PDOC ---
Objective: Objective: Reviewed w/ RN - tolerating feeds, no stools today, on CPAP. Vital Signs: Vital Signs Date Time Temp Pulse Resp B/P (MAP) Pulse Ox O2 Delivery O2 Flow Rate FiO2 01/01/19 09:37 94 Ventilator 01/01/19 06:00 97 22 141/69 (93) 01/01/19 04:00 99.2 99.2 12/31/18 18:19 15.0 Labs: Laboratory Tests Test 12/31/18 17:13 12/31/18 23:54 01/01/19 05:35 01/01/19 08:00 Glucose (Fingerstick) 269 mg/dL 240 mg/dL 238 mg/dL O2 Saturation 96 % Arterial Blood pH 7.50 Arterial Blood pCO2 at Patient Temp 49 mmHg Arterial Blood pO2 at Patient Temp 84 mmHg Arterial Blood HCO3 37 mmol/L Arterial Blood Base Excess 13 mmol/L FiO2 45% Test 01/01/19 09:10 01/01/19 09:42 White Blood Count 5.0 x10^3/uL Red Blood Count 3.19 x10^6/uL Hemoglobin 8.3 g/dL Hematocrit 26.3 % Mean Corpuscular Volume 83 fL Mean Corpuscular Hemoglobin 26 pg Mean Corpuscular Hemoglobin Concent 32 g/dL Red Cell Distribution Width 18.5 % Platelet Count 203 x10^3/uL Neutrophils (%) (Auto) 71 % Lymphocytes (%) (Auto) 14 % Monocytes (%) (Auto) 12 % Eosinophils (%) (Auto) 3 % Basophils (%) (Auto) 1 % Neutrophils # (Auto) 3.5 x10^3uL Lymphocytes # (Auto) 0.7 x10^3/uL Monocytes # (Auto) 0.6 x10^3/uL Eosinophils # (Auto) 0.2 x10^3/uL Basophils # (Auto) 0.0 x10^3/uL Sodium Level 145 mmol/L Potassium Level 3.5 mmol/L Chloride Level 104 mmol/L Carbon Dioxide Level 38 mmol/L Anion Gap 3 Blood Urea Nitrogen 15 mg/dL Creatinine 0.5 mg/dL Estimated GFR (Cockcroft-Gault) 170.8 BUN/Creatinine Ratio 30 Glucose Level 260 mg/dL Calcium Level 7.7 mg/dL Total Bilirubin 0.5 mg/dL Aspartate Amino Transf (AST/SGOT) 146 U/L Alanine Aminotransferase (ALT/SGPT) 103 U/L Alkaline Phosphatase 195 U/L Total Protein 4.7 g/dL Albumin 2.0 g/dL Albumin/Globulin Ratio 0.7 Vancomycin Level Trough 2.8 mcg/mL Vancomycin Last Dose Date 01/01/19 Vancomycin Last Dose Time 0130 O2 Saturation 94 % Arterial Blood pH 7.52 Arterial Blood pCO2 at Patient Temp 46 mmHg Arterial Blood pO2 at Patient Temp 68 mmHg Arterial Blood HCO3 36 mmol/L Arterial Blood Base Excess 12 mmol/L FiO2 40% BLOOD CULTURE Preliminary NO GROWTH AFTER 1 DAY Imaging: CXR 01/01 IMPRESSION: 1. Stable tube positions. 2. Unchanged bibasilar opacities compatible with pleural fluid and underlying atelectasis/infiltrate. PE: GEN: intubated LUNGS: CPAP/vent HEART: RRR ABD: BS+ NEURO/PSYCH: awake, groggy A/P: S/p pancreatic pseudocystogastrostomy and cholecystectomy Resp failure Elevated LFTs - AST and ALT elevated some today, Alk Phos a little worse -- Continue support, watch labs. Called later by RN re: LFTs - okay per GI to stop TPN and continue tube feeds but would also check with surgery. KALEE ULLOA Jan 01, 2019 11:07
--- NOTE | 2019-01-01 11:47 | PDOC ---
SURGICAL PROGRESS NOTE Subjective vent Tolerating TF at goal rate questions about stopping TPN Vital Signs Vital Signs Date Time Temp Pulse Resp B/P (MAP) Pulse Ox O2 Delivery O2 Flow Rate FiO2 01/01/19 09:37 94 Ventilator 01/01/19 06:00 97 22 141/69 (93) 01/01/19 04:00 99.2 99.2 12/31/18 18:19 15.0 I&O Intake and Output 01/01/19 07:00 Intake Total 3713 ml Output Total 4596 ml Balance -883 ml IV Total 2584 ml Tube Feeding 1079 ml Other 50 ml Output Urine Total 4575 ml Stool Total 1 ml Gastric Drainage Total 20 ml # Bowel Movements 3 General: No acute distress Abdomen: Soft, Other (incision healing ) Labs Laboratory Tests Test 12/30/18 12:46 12/30/18 16:58 12/30/18 23:57 12/31/18 05:24 Glucose (Fingerstick) 234 mg/dL (70-99) 212 mg/dL (70-99) 267 mg/dL (70-99) White Blood Count 5.9 x10^3/uL (4.0-11.0) Red Blood Count 3.04 x10^6/uL (4.30-5.70) Hemoglobin 8.2 g/dL (13.0-17.5) Hematocrit 25.2 % (39.0-53.0) Mean Corpuscular Volume 83 fL (79-100) Mean Corpuscular Hemoglobin 27 pg (25-35) Mean Corpuscular Hemoglobin Concent 33 g/dL (31-37) Red Cell Distribution Width 18.9 % (11.5-14.5) Platelet Count 207 x10^3/uL (140-400) Neutrophils (%) (Auto) 68 % (31-73) Lymphocytes (%) (Auto) 15 % (24-48) Monocytes (%) (Auto) 14 % (0-9) Eosinophils (%) (Auto) 2 % (0-3) Basophils (%) (Auto) 1 % (0-3) Neutrophils # (Auto) 4.0 x10^3uL (1.8-7.7) Lymphocytes # (Auto) 0.9 x10^3/uL (1.0-4.8) Monocytes # (Auto) 0.8 x10^3/uL (0.0-1.1) Eosinophils # (Auto) 0.1 x10^3/uL (0.0-0.7) Basophils # (Auto) 0.0 x10^3/uL (0.0-0.2) Sodium Level 142 mmol/L (136-145) Potassium Level 3.5 mmol/L (3.5-5.1) Chloride Level 100 mmol/L (98-107) Carbon Dioxide Level 40 mmol/L (21-32) Anion Gap 2 (6-14) Blood Urea Nitrogen 16 mg/dL (8-26) Creatinine 0.5 mg/dL (0.7-1.3) Estimated GFR (Cockcroft-Gault) 170.8 BUN/Creatinine Ratio 32 (6-20) Glucose Level 267 mg/dL (70-99) Calcium Level 8.1 mg/dL (8.5-10.1) Phosphorus Level 3.4 mg/dL (2.6-4.7) Magnesium Level 1.8 mg/dL (1.8-2.4) Total Bilirubin 0.6 mg/dL (0.2-1.0) Aspartate Amino Transf (AST/SGOT) 32 U/L (15-37) Alanine Aminotransferase (ALT/SGPT) 20 U/L (16-63) Alkaline Phosphatase 166 U/L (46-116) Total Protein 5.5 g/dL (6.4-8.2) Albumin 2.1 g/dL (3.4-5.0) Albumin/Globulin Ratio 0.6 (1.0-1.7) Test 12/31/18 06:13 12/31/18 07:45 12/31/18 17:13 12/31/18 23:54 Glucose (Fingerstick) 261 mg/dL (70-99) 269 mg/dL (70-99) 240 mg/dL (70-99) O2 Saturation 96 % (92-99) Arterial Blood pH 7.50 (7.35-7.45) Arterial Blood pCO2 at Patient Temp 49 mmHg (35-46) Arterial Blood pO2 at Patient Temp 79 mmHg (75-108) Arterial Blood HCO3 38 mmol/L (21-28) Arterial Blood Base Excess 13 mmol/L (-3-3) FiO2 50 Test 01/01/19 05:35 01/01/19 08:00 01/01/19 09:10 01/01/19 09:42 Glucose (Fingerstick) 238 mg/dL (70-99) O2 Saturation 96 % (92-99) 94 % (92-99) Arterial Blood pH 7.50 (7.35-7.45) 7.52 (7.35-7.45) Arterial Blood pCO2 at Patient Temp 49 mmHg (35-46) 46 mmHg (35-46) Arterial Blood pO2 at Patient Temp 84 mmHg (75-108) 68 mmHg (75-108) Arterial Blood HCO3 37 mmol/L (21-28) 36 mmol/L (21-28) Arterial Blood Base Excess 13 mmol/L (-3-3) 12 mmol/L (-3-3) FiO2 45% 40% White Blood Count 5.0 x10^3/uL (4.0-11.0) Red Blood Count 3.19 x10^6/uL (4.30-5.70) Hemoglobin 8.3 g/dL (13.0-17.5) Hematocrit 26.3 % (39.0-53.0) Mean Corpuscular Volume 83 fL (79-100) Mean Corpuscular Hemoglobin 26 pg (25-35) Mean Corpuscular Hemoglobin Concent 32 g/dL (31-37) Red Cell Distribution Width 18.5 % (11.5-14.5) Platelet Count 203 x10^3/uL (140-400) Neutrophils (%) (Auto) 71 % (31-73) Lymphocytes (%) (Auto) 14 % (24-48) Monocytes (%) (Auto) 12 % (0-9) Eosinophils (%) (Auto) 3 % (0-3) Basophils (%) (Auto) 1 % (0-3) Neutrophils # (Auto) 3.5 x10^3uL (1.8-7.7) Lymphocytes # (Auto) 0.7 x10^3/uL (1.0-4.8) Monocytes # (Auto) 0.6 x10^3/uL (0.0-1.1) Eosinophils # (Auto) 0.2 x10^3/uL (0.0-0.7) Basophils # (Auto) 0.0 x10^3/uL (0.0-0.2) Sodium Level 145 mmol/L (136-145) Potassium Level 3.5 mmol/L (3.5-5.1) Chloride Level 104 mmol/L (98-107) Carbon Dioxide Level 38 mmol/L (21-32) Anion Gap 3 (6-14) Blood Urea Nitrogen 15 mg/dL (8-26) Creatinine 0.5 mg/dL (0.7-1.3) Estimated GFR (Cockcroft-Gault) 170.8 BUN/Creatinine Ratio 30 (6-20) Glucose Level 260 mg/dL (70-99) Calcium Level 7.7 mg/dL (8.5-10.1) Total Bilirubin 0.5 mg/dL (0.2-1.0) Aspartate Amino Transf (AST/SGOT) 146 U/L (15-37) Alanine Aminotransferase (ALT/SGPT) 103 U/L (16-63) Alkaline Phosphatase 195 U/L (46-116) Total Protein 4.7 g/dL (6.4-8.2) Albumin 2.0 g/dL (3.4-5.0) Albumin/Globulin Ratio 0.7 (1.0-1.7) Vancomycin Level Trough 2.8 mcg/mL (10.0-20.0) Vancomycin Last Dose Date 01/01/19 Vancomycin Last Dose Time 0130 Laboratory Tests Test 12/31/18 17:13 12/31/18 23:54 01/01/19 05:35 01/01/19 08:00 Glucose (Fingerstick) 269 mg/dL (70-99) 240 mg/dL (70-99) 238 mg/dL (70-99) O2 Saturation 96 % (92-99) Arterial Blood pH 7.50 (7.35-7.45) Arterial Blood pCO2 at Patient Temp 49 mmHg (35-46) Arterial Blood pO2 at Patient Temp 84 mmHg (75-108) Arterial Blood HCO3 37 mmol/L (21-28) Arterial Blood Base Excess 13 mmol/L (-3-3) FiO2 45% Test 01/01/19 09:10 01/01/19 09:42 White Blood Count 5.0 x10^3/uL (4.0-11.0) Red Blood Count 3.19 x10^6/uL (4.30-5.70) Hemoglobin 8.3 g/dL (13.0-17.5) Hematocrit 26.3 % (39.0-53.0) Mean Corpuscular Volume 83 fL (79-100) Mean Corpuscular Hemoglobin 26 pg (25-35) Mean Corpuscular Hemoglobin Concent 32 g/dL (31-37) Red Cell Distribution Width 18.5 % (11.5-14.5) Platelet Count 203 x10^3/uL (140-400) Neutrophils (%) (Auto) 71 % (31-73) Lymphocytes (%) (Auto) 14 % (24-48) Monocytes (%) (Auto) 12 % (0-9) Eosinophils (%) (Auto) 3 % (0-3) Basophils (%) (Auto) 1 % (0-3) Neutrophils # (Auto) 3.5 x10^3uL (1.8-7.7) Lymphocytes # (Auto) 0.7 x10^3/uL (1.0-4.8) Monocytes # (Auto) 0.6 x10^3/uL (0.0-1.1) Eosinophils # (Auto) 0.2 x10^3/uL (0.0-0.7) Basophils # (Auto) 0.0 x10^3/uL (0.0-0.2) Sodium Level 145 mmol/L (136-145) Potassium Level 3.5 mmol/L (3.5-5.1) Chloride Level 104 mmol/L (98-107) Carbon Dioxide Level 38 mmol/L (21-32) Anion Gap 3 (6-14) Blood Urea Nitrogen 15 mg/dL (8-26) Creatinine 0.5 mg/dL (0.7-1.3) Estimated GFR (Cockcroft-Gault) 170.8 BUN/Creatinine Ratio 30 (6-20) Glucose Level 260 mg/dL (70-99) Calcium Level 7.7 mg/dL (8.5-10.1) Total Bilirubin 0.5 mg/dL (0.2-1.0) Aspartate Amino Transf (AST/SGOT) 146 U/L (15-37) Alanine Aminotransferase (ALT/SGPT) 103 U/L (16-63) Alkaline Phosphatase 195 U/L (46-116) Total Protein 4.7 g/dL (6.4-8.2) Albumin 2.0 g/dL (3.4-5.0) Albumin/Globulin Ratio 0.7 (1.0-1.7) Vancomycin Level Trough 2.8 mcg/mL (10.0-20.0) Vancomycin Last Dose Date 01/01/19 Vancomycin Last Dose Time 0130 O2 Saturation 94 % (92-99) Arterial Blood pH 7.52 (7.35-7.45) Arterial Blood pCO2 at Patient Temp 46 mmHg (35-46) Arterial Blood pO2 at Patient Temp 68 mmHg (75-108) Arterial Blood HCO3 36 mmol/L (21-28) Arterial Blood Base Excess 12 mmol/L (-3-3) FiO2 40% Assessment/Plan ok to stop TPN 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
[2019-01-01] MEDS ORDERED: PROPOFOL 10 MG/ML (100ML) VIAL. IV ONE (14:09)
[2019-01-01] MEDS: VANCOMYCIN 1.5 GM in IV NORMAL SALINE 500ML BAG 500 ML IV SCH ×2 (15:13→23:40)
[2019-01-01] MEDS: PROPOFOL 100 ML IV PRN ×2 (18:31→23:52)
[2019-01-01] MEDS ORDERED: [UNRECOGNIZED DRUG - OTHER] IV SCH ×12 (22:00)
[2019-01-01] MEDS ORDERED: DEXTROSE 70% IV SCH ×12 (22:00)
[2019-01-01] MEDS ORDERED: TOTAL PARENTERAL NUTRITION IV SCH ×12 (22:00)
[2019-01-01] MEDS ORDERED: AMINO ACID IV SCH ×12 (22:00)
[2019-01-01] MEDS: MORPHINE SULFATE 2 MG/ML VIAL. IV PRN (23:40)
[2019-01-02] VITALS (24 sets, daily range): BP systolic 86–142; BP diastolic 51–78
[2019-01-02] MEDS: INSULIN LISPRO 300 UNITS/3 ML INSULN.PEN. SQ SCH ×4 (00:51→17:44)
[2019-01-02] MEDS: MEROPENEM 500 MG in IV NORMAL SALINE 50ML 50 ML IV SCH ×4 (00:52→17:44)
[2019-01-02] MEDS: FUROSEMIDE 40 MG/4 ML VIAL. IVP SCH ×3 (03:30→21:07)
[2019-01-02 06:29] LABS: ALBUMIN 1.7 g/dL (3.4-5.0); ALBUMIN/GLOBULIN RATIO 0.6 (1.0-1.7); CALCIUM 7.1 mg/dL (8.5-10.1); CREATININE 0.5 mg/dL (0.7-1.3); GFR 170.8; POTASSIUM 3.1 mmol/L (3.5-5.1); TOTAL BILIRUBIN 0.4 mg/dL (0.2-1.0); TOTAL PROTEIN 4.7 g/dL (6.4-8.2)
--- NOTE | 2019-01-02 06:37 | PDOC ---
PULMONARY PROGRESS NOTES Subjective on vent, open eyes w verbal stimuli, small ett secretion, on propofol Vitals Vital Signs Date Time Temp Pulse Resp B/P (MAP) Pulse Ox O2 Delivery O2 Flow Rate FiO2 01/02/19 06:00 94 20 86/56 (66) 95 Ventilator 01/02/19 04:00 99.2 99.2 Comments ros as mentioned as above discussed w rn, rt other sys otherwise neg on vent open eyes w verbal stimuli HEENT: Other (nc at perrl nose clear orally intubated neck no lad no thyromegaly) Lungs: Other (decrease bs) Cardiovascular: S1, S2 Abdomen: Soft, Non-tender, Other (G TUBE no mass) Extremities: Other (EDEMA) Skin: Warm Labs Laboratory Tests Test 12/31/18 07:45 12/31/18 17:13 12/31/18 23:54 01/01/19 05:35 O2 Saturation 96 % (92-99) Arterial Blood pH 7.50 (7.35-7.45) Arterial Blood pCO2 at Patient Temp 49 mmHg (35-46) Arterial Blood pO2 at Patient Temp 79 mmHg (75-108) Arterial Blood HCO3 38 mmol/L (21-28) Arterial Blood Base Excess 13 mmol/L (-3-3) FiO2 50 Glucose (Fingerstick) 269 mg/dL (70-99) 240 mg/dL (70-99) 238 mg/dL (70-99) Test 01/01/19 08:00 01/01/19 09:10 01/01/19 09:42 01/01/19 12:15 O2 Saturation 96 % (92-99) 94 % (92-99) Arterial Blood pH 7.50 (7.35-7.45) 7.52 (7.35-7.45) Arterial Blood pCO2 at Patient Temp 49 mmHg (35-46) 46 mmHg (35-46) Arterial Blood pO2 at Patient Temp 84 mmHg (75-108) 68 mmHg (75-108) Arterial Blood HCO3 37 mmol/L (21-28) 36 mmol/L (21-28) Arterial Blood Base Excess 13 mmol/L (-3-3) 12 mmol/L (-3-3) FiO2 45% 40% White Blood Count 5.0 x10^3/uL (4.0-11.0) Red Blood Count 3.19 x10^6/uL (4.30-5.70) Hemoglobin 8.3 g/dL (13.0-17.5) Hematocrit 26.3 % (39.0-53.0) Mean Corpuscular Volume 83 fL (79-100) Mean Corpuscular Hemoglobin 26 pg (25-35) Mean Corpuscular Hemoglobin Concent 32 g/dL (31-37) Red Cell Distribution Width 18.5 % (11.5-14.5) Platelet Count 203 x10^3/uL (140-400) Neutrophils (%) (Auto) 71 % (31-73) Lymphocytes (%) (Auto) 14 % (24-48) Monocytes (%) (Auto) 12 % (0-9) Eosinophils (%) (Auto) 3 % (0-3) Basophils (%) (Auto) 1 % (0-3) Neutrophils # (Auto) 3.5 x10^3uL (1.8-7.7) Lymphocytes # (Auto) 0.7 x10^3/uL (1.0-4.8) Monocytes # (Auto) 0.6 x10^3/uL (0.0-1.1) Eosinophils # (Auto) 0.2 x10^3/uL (0.0-0.7) Basophils # (Auto) 0.0 x10^3/uL (0.0-0.2) Sodium Level 145 mmol/L (136-145) Potassium Level 3.5 mmol/L (3.5-5.1) Chloride Level 104 mmol/L (98-107) Carbon Dioxide Level 38 mmol/L (21-32) Anion Gap 3 (6-14) Blood Urea Nitrogen 15 mg/dL (8-26) Creatinine 0.5 mg/dL (0.7-1.3) Estimated GFR (Cockcroft-Gault) 170.8 BUN/Creatinine Ratio 30 (6-20) Glucose Level 260 mg/dL (70-99) Calcium Level 7.7 mg/dL (8.5-10.1) Total Bilirubin 0.5 mg/dL (0.2-1.0) Aspartate Amino Transf (AST/SGOT) 146 U/L (15-37) Alanine Aminotransferase (ALT/SGPT) 103 U/L (16-63) Alkaline Phosphatase 195 U/L (46-116) Total Protein 4.7 g/dL (6.4-8.2) Albumin 2.0 g/dL (3.4-5.0) Albumin/Globulin Ratio 0.7 (1.0-1.7) Vancomycin Level Trough 2.8 mcg/mL (10.0-20.0) Vancomycin Last Dose Date 01/01/19 Vancomycin Last Dose Time 0130 Glucose (Fingerstick) 235 mg/dL (70-99) Test 01/01/19 18:33 01/02/19 00:50 01/02/19 05:40 01/02/19 05:42 Glucose (Fingerstick) 221 mg/dL (70-99) 221 mg/dL (70-99) 242 mg/dL (70-99) Sodium Level 147 mmol/L (136-145) Potassium Level 3.1 mmol/L (3.5-5.1) Chloride Level 106 mmol/L (98-107) Carbon Dioxide Level 35 mmol/L (21-32) Anion Gap 6 (6-14) Blood Urea Nitrogen 15 mg/dL (8-26) Creatinine 0.5 mg/dL (0.7-1.3) Estimated GFR (Cockcroft-Gault) 170.8 BUN/Creatinine Ratio 30 (6-20) Glucose Level 265 mg/dL (70-99) Calcium Level 7.1 mg/dL (8.5-10.1) Total Bilirubin 0.4 mg/dL (0.2-1.0) Aspartate Amino Transf (AST/SGOT) 96 U/L (15-37) Alanine Aminotransferase (ALT/SGPT) 109 U/L (16-63) Alkaline Phosphatase 174 U/L (46-116) Total Protein 4.7 g/dL (6.4-8.2) Albumin 1.7 g/dL (3.4-5.0) Albumin/Globulin Ratio 0.6 (1.0-1.7) Laboratory Tests Test 01/01/19 08:00 01/01/19 09:10 01/01/19 09:42 01/01/19 12:15 O2 Saturation 96 % (92-99) 94 % (92-99) Arterial Blood pH 7.50 (7.35-7.45) 7.52 (7.35-7.45) Arterial Blood pCO2 at Patient Temp 49 mmHg (35-46) 46 mmHg (35-46) Arterial Blood pO2 at Patient Temp 84 mmHg (75-108) 68 mmHg (75-108) Arterial Blood HCO3 37 mmol/L (21-28) 36 mmol/L (21-28) Arterial Blood Base Excess 13 mmol/L (-3-3) 12 mmol/L (-3-3) FiO2 45% 40% White Blood Count 5.0 x10^3/uL (4.0-11.0) Red Blood Count 3.19 x10^6/uL (4.30-5.70) Hemoglobin 8.3 g/dL (13.0-17.5) Hematocrit 26.3 % (39.0-53.0) Mean Corpuscular Volume 83 fL (79-100) Mean Corpuscular Hemoglobin 26 pg (25-35) Mean Corpuscular Hemoglobin Concent 32 g/dL (31-37) Red Cell Distribution Width 18.5 % (11.5-14.5) Platelet Count 203 x10^3/uL (140-400) Neutrophils (%) (Auto) 71 % (31-73) Lymphocytes (%) (Auto) 14 % (24-48) Monocytes (%) (Auto) 12 % (0-9) Eosinophils (%) (Auto) 3 % (0-3) Basophils (%) (Auto) 1 % (0-3) Neutrophils # (Auto) 3.5 x10^3uL (1.8-7.7) Lymphocytes # (Auto) 0.7 x10^3/uL (1.0-4.8) Monocytes # (Auto) 0.6 x10^3/uL (0.0-1.1) Eosinophils # (Auto) 0.2 x10^3/uL (0.0-0.7) Basophils # (Auto) 0.0 x10^3/uL (0.0-0.2) Sodium Level 145 mmol/L (136-145) Potassium Level 3.5 mmol/L (3.5-5.1) Chloride Level 104 mmol/L (98-107) Carbon Dioxide Level 38 mmol/L (21-32) Anion Gap 3 (6-14) Blood Urea Nitrogen 15 mg/dL (8-26) Creatinine 0.5 mg/dL (0.7-1.3) Estimated GFR (Cockcroft-Gault) 170.8 BUN/Creatinine Ratio 30 (6-20) Glucose Level 260 mg/dL (70-99) Calcium Level 7.7 mg/dL (8.5-10.1) Total Bilirubin 0.5 mg/dL (0.2-1.0) Aspartate Amino Transf (AST/SGOT) 146 U/L (15-37) Alanine Aminotransferase (ALT/SGPT) 103 U/L (16-63) Alkaline Phosphatase 195 U/L (46-116) Total Protein 4.7 g/dL (6.4-8.2) Albumin 2.0 g/dL (3.4-5.0) Albumin/Globulin Ratio 0.7 (1.0-1.7) Vancomycin Level Trough 2.8 mcg/mL (10.0-20.0) Vancomycin Last Dose Date 01/01/19 Vancomycin Last Dose Time 0130 Glucose (Fingerstick) 235 mg/dL (70-99) Test 01/01/19 18:33 01/02/19 00:50 01/02/19 05:40 01/02/19 05:42 Glucose (Fingerstick) 221 mg/dL (70-99) 221 mg/dL (70-99) 242 mg/dL (70-99) Sodium Level 147 mmol/L (136-145) Potassium Level 3.1 mmol/L (3.5-5.1) Chloride Level 106 mmol/L (98-107) Carbon Dioxide Level 35 mmol/L (21-32) Anion Gap 6 (6-14) Blood Urea Nitrogen 15 mg/dL (8-26) Creatinine 0.5 mg/dL (0.7-1.3) Estimated GFR (Cockcroft-Gault) 170.8 BUN/Creatinine Ratio 30 (6-20) Glucose Level 265 mg/dL (70-99) Calcium Level 7.1 mg/dL (8.5-10.1) Total Bilirubin 0.4 mg/dL (0.2-1.0) Aspartate Amino Transf (AST/SGOT) 96 U/L (15-37) Alanine Aminotransferase (ALT/SGPT) 109 U/L (16-63) Alkaline Phosphatase 174 U/L (46-116) Total Protein 4.7 g/dL (6.4-8.2) Albumin 1.7 g/dL (3.4-5.0) Albumin/Globulin Ratio 0.6 (1.0-1.7) Medications Active Scripts Medications Dose Route/Sig Max Daily Dose Days Date Category Trophamine (Amino Acids 10 %) 500 Ml Iv.soln 500 Ml IV DAILY 199912/21/18 Reported Duoneb 0.5-3(2.5) Mg/3 Ml (Albuterol/Ipratropium) 3 Ml Ampul.neb 3 Ml NEB BID 12/21/18 Reported Dulcolax (Bisacodyl) 10 Mg Supp.rect 10 Mg RC PRN DAILY PRN 12/21/18 Reported Duoneb 0.5-3(2.5) Mg/3 Ml (Albuterol/Ipratropium) 3 Ml Ampul.neb 3 Ml NEB PRN Q4HRS PRN 12/21/18 Reported Atorvastatin Calcium 40 Mg Tablet 1 Tab PO QHS 12/21/18 Reported Simethicone 80 Mg Tab.chew 80 Mg PO PRN TID PRN 12/21/18 Reported Humalog (Insulin Lispro) 100 Unit/1 Ml Vial 0 SQ Q6HRS 12/21/18 Reported Ondansetron Hcl 4 Mg/2 Ml Vial (Ondansetron Hcl/Pf) 4 Mg/2 Ml Vial 4 Mg IJ PRN Q6HRS PRN 12/21/18 Reported Actos (Pioglitazone Hcl) 15 Mg Tablet 1 Tab PO DAILY 12/21/18 Reported Tylenol Extra Strength (Acetaminophen) 500 Mg Tablet 1,000 Mg PO PRN Q6HRS PRN 12/21/18 Reported Senokot-S Tablet (Sennosides/Docusate Sodium) 1 Each Tablet 1 Tab PO BID 12/21/18 Reported Vitamin D3 (Cholecalciferol (Vitamin D3)) 1,000 Unit Tablet 1 Tab PO DAILY 12/21/18 Reported Carvedilol (Carvedilol) 12.5 Mg Tablet 12.5 Mg PO BIDWMEALS 12/21/18 Reported Comments reviewed CXR 4/5 Small right effusions with adjacent infiltrates ( R>L). No change. Impression . 1. Expected hypoxemic respiratory failure, status post open pancreatic pseudocyst gastrostomy, open cholecystectomy, G-tube placement. 2. History of necrotizing pancreatitis. 3. Abnormal x-ray c/w basal effusions/ Mild CHF 4. Possible sepsis. 5. Coronary artery disease, status post coronary artery bypass grafting. 6. History of alcoholism. 7. Protein malnutrition, present upon admission. 8. Acute blood loss anemia, expected. S/P TRANSFUSIONS 9. encephalopathy/ sedation induced./ improving 10. abnl LFT's Plan . cont vent support, setting reviewed, sbt, rr in high 30s, not ready for extubation. 02 titration to keep sat 94% slow PROGRESS OFF PRESSORS ABG NOTED INCREASE LFTs per GI TPN FOR NUTRITION DVT PROPH FOLLOW CONSULTANTS INPUT DIURESIS FOLLOW CXR ABX PER ID discussed w rn, rt JUAN CARLOS CALHOUN MD Jan 02, 2019 06:37
[2019-01-02] MEDS: PROPOFOL 100 ML IV PRN ×3 (06:56→23:36)
[2019-01-02] MEDS: PANTOPRAZOLE IV PUSH 40 MG VIAL. IVP SCH (08:33)
[2019-01-02] MEDS: VANCOMYCIN 1.5 GM in IV NORMAL SALINE 500ML BAG 500 ML IV SCH ×2 (08:34→15:42)
--- NOTE | 2019-01-02 08:46 | PDOC ---
MAIKOL MORRELL [employer]ENGER [employer] 01/02/19 0846: SURGICAL PROGRESS NOTE Subjective sedation off Tolerating TF at goal rate rectal tube for stools Vital Signs Vital Signs Date Time Temp Pulse Resp B/P (MAP) Pulse Ox O2 Delivery O2 Flow Rate FiO2 01/02/19 07:54 95 Ventilator 01/02/19 06:00 94 20 86/56 (66) 01/02/19 04:00 99.2 99.2 I&O Intake and Output 01/02/19 07:00 Intake Total 2494 ml Output Total 3030 ml Balance -536 ml IV Total 799 ml Tube Feeding 1595 ml Other 100 ml Output Urine Total 3030 ml Gastric Drainage Total 0 ml # Bowel Movements 3 PATIENT HAS A MAGAÑA: Yes General: No acute distress Abdomen: Soft, Other (incision clean) Labs Laboratory Tests Test 12/31/18 17:13 12/31/18 23:54 01/01/19 05:35 01/01/19 08:00 Glucose (Fingerstick) 269 mg/dL (70-99) 240 mg/dL (70-99) 238 mg/dL (70-99) O2 Saturation 96 % (92-99) Arterial Blood pH 7.50 (7.35-7.45) Arterial Blood pCO2 at Patient Temp 49 mmHg (35-46) Arterial Blood pO2 at Patient Temp 84 mmHg (75-108) Arterial Blood HCO3 37 mmol/L (21-28) Arterial Blood Base Excess 13 mmol/L (-3-3) FiO2 45% Test 01/01/19 09:10 01/01/19 09:42 01/01/19 12:15 01/01/19 18:33 White Blood Count 5.0 x10^3/uL (4.0-11.0) Red Blood Count 3.19 x10^6/uL (4.30-5.70) Hemoglobin 8.3 g/dL (13.0-17.5) Hematocrit 26.3 % (39.0-53.0) Mean Corpuscular Volume 83 fL (79-100) Mean Corpuscular Hemoglobin 26 pg (25-35) Mean Corpuscular Hemoglobin Concent 32 g/dL (31-37) Red Cell Distribution Width 18.5 % (11.5-14.5) Platelet Count 203 x10^3/uL (140-400) Neutrophils (%) (Auto) 71 % (31-73) Lymphocytes (%) (Auto) 14 % (24-48) Monocytes (%) (Auto) 12 % (0-9) Eosinophils (%) (Auto) 3 % (0-3) Basophils (%) (Auto) 1 % (0-3) Neutrophils # (Auto) 3.5 x10^3uL (1.8-7.7) Lymphocytes # (Auto) 0.7 x10^3/uL (1.0-4.8) Monocytes # (Auto) 0.6 x10^3/uL (0.0-1.1) Eosinophils # (Auto) 0.2 x10^3/uL (0.0-0.7) Basophils # (Auto) 0.0 x10^3/uL (0.0-0.2) Sodium Level 145 mmol/L (136-145) Potassium Level 3.5 mmol/L (3.5-5.1) Chloride Level 104 mmol/L (98-107) Carbon Dioxide Level 38 mmol/L (21-32) Anion Gap 3 (6-14) Blood Urea Nitrogen 15 mg/dL (8-26) Creatinine 0.5 mg/dL (0.7-1.3) Estimated GFR (Cockcroft-Gault) 170.8 BUN/Creatinine Ratio 30 (6-20) Glucose Level 260 mg/dL (70-99) Calcium Level 7.7 mg/dL (8.5-10.1) Total Bilirubin 0.5 mg/dL (0.2-1.0) Aspartate Amino Transf (AST/SGOT) 146 U/L (15-37) Alanine Aminotransferase (ALT/SGPT) 103 U/L (16-63) Alkaline Phosphatase 195 U/L (46-116) Total Protein 4.7 g/dL (6.4-8.2) Albumin 2.0 g/dL (3.4-5.0) Albumin/Globulin Ratio 0.7 (1.0-1.7) Vancomycin Level Trough 2.8 mcg/mL (10.0-20.0) Vancomycin Last Dose Date 01/01/19 Vancomycin Last Dose Time 0130 O2 Saturation 94 % (92-99) Arterial Blood pH 7.52 (7.35-7.45) Arterial Blood pCO2 at Patient Temp 46 mmHg (35-46) Arterial Blood pO2 at Patient Temp 68 mmHg (75-108) Arterial Blood HCO3 36 mmol/L (21-28) Arterial Blood Base Excess 12 mmol/L (-3-3) FiO2 40% Glucose (Fingerstick) 235 mg/dL (70-99) 221 mg/dL (70-99) Test 01/02/19 00:50 01/02/19 05:40 01/02/19 05:42 Glucose (Fingerstick) 221 mg/dL (70-99) 242 mg/dL (70-99) Sodium Level 147 mmol/L (136-145) Potassium Level 3.1 mmol/L (3.5-5.1) Chloride Level 106 mmol/L (98-107) Carbon Dioxide Level 35 mmol/L (21-32) Anion Gap 6 (6-14) Blood Urea Nitrogen 15 mg/dL (8-26) Creatinine 0.5 mg/dL (0.7-1.3) Estimated GFR (Cockcroft-Gault) 170.8 BUN/Creatinine Ratio 30 (6-20) Glucose Level 265 mg/dL (70-99) Calcium Level 7.1 mg/dL (8.5-10.1) Total Bilirubin 0.4 mg/dL (0.2-1.0) Aspartate Amino Transf (AST/SGOT) 96 U/L (15-37) Alanine Aminotransferase (ALT/SGPT) 109 U/L (16-63) Alkaline Phosphatase 174 U/L (46-116) Total Protein 4.7 g/dL (6.4-8.2) Albumin 1.7 g/dL (3.4-5.0) Albumin/Globulin Ratio 0.6 (1.0-1.7) Laboratory Tests Test 01/01/19 09:10 01/01/19 09:42 01/01/19 12:15 01/01/19 18:33 White Blood Count 5.0 x10^3/uL (4.0-11.0) Red Blood Count 3.19 x10^6/uL (4.30-5.70) Hemoglobin 8.3 g/dL (13.0-17.5) Hematocrit 26.3 % (39.0-53.0) Mean Corpuscular Volume 83 fL (79-100) Mean Corpuscular Hemoglobin 26 pg (25-35) Mean Corpuscular Hemoglobin Concent 32 g/dL (31-37) Red Cell Distribution Width 18.5 % (11.5-14.5) Platelet Count 203 x10^3/uL (140-400) Neutrophils (%) (Auto) 71 % (31-73) Lymphocytes (%) (Auto) 14 % (24-48) Monocytes (%) (Auto) 12 % (0-9) Eosinophils (%) (Auto) 3 % (0-3) Basophils (%) (Auto) 1 % (0-3) Neutrophils # (Auto) 3.5 x10^3uL (1.8-7.7) Lymphocytes # (Auto) 0.7 x10^3/uL (1.0-4.8) Monocytes # (Auto) 0.6 x10^3/uL (0.0-1.1) Eosinophils # (Auto) 0.2 x10^3/uL (0.0-0.7) Basophils # (Auto) 0.0 x10^3/uL (0.0-0.2) Sodium Level 145 mmol/L (136-145) Potassium Level 3.5 mmol/L (3.5-5.1) Chloride Level 104 mmol/L (98-107) Carbon Dioxide Level 38 mmol/L (21-32) Anion Gap 3 (6-14) Blood Urea Nitrogen 15 mg/dL (8-26) Creatinine 0.5 mg/dL (0.7-1.3) Estimated GFR (Cockcroft-Gault) 170.8 BUN/Creatinine Ratio 30 (6-20) Glucose Level 260 mg/dL (70-99) Calcium Level 7.7 mg/dL (8.5-10.1) Total Bilirubin 0.5 mg/dL (0.2-1.0) Aspartate Amino Transf (AST/SGOT) 146 U/L (15-37) Alanine Aminotransferase (ALT/SGPT) 103 U/L (16-63) Alkaline Phosphatase 195 U/L (46-116) Total Protein 4.7 g/dL (6.4-8.2) Albumin 2.0 g/dL (3.4-5.0) Albumin/Globulin Ratio 0.7 (1.0-1.7) Vancomycin Level Trough 2.8 mcg/mL (10.0-20.0) Vancomycin Last Dose Date 01/01/19 Vancomycin Last Dose Time 0130 O2 Saturation 94 % (92-99) Arterial Blood pH 7.52 (7.35-7.45) Arterial Blood pCO2 at Patient Temp 46 mmHg (35-46) Arterial Blood pO2 at Patient Temp 68 mmHg (75-108) Arterial Blood HCO3 36 mmol/L (21-28) Arterial Blood Base Excess 12 mmol/L (-3-3) FiO2 40% Glucose (Fingerstick) 235 mg/dL (70-99) 221 mg/dL (70-99) Test 01/02/19 00:50 01/02/19 05:40 01/02/19 05:42 Glucose (Fingerstick) 221 mg/dL (70-99) 242 mg/dL (70-99) Sodium Level 147 mmol/L (136-145) Potassium Level 3.1 mmol/L (3.5-5.1) Chloride Level 106 mmol/L (98-107) Carbon Dioxide Level 35 mmol/L (21-32) Anion Gap 6 (6-14) Blood Urea Nitrogen 15 mg/dL (8-26) Creatinine 0.5 mg/dL (0.7-1.3) Estimated GFR (Cockcroft-Gault) 170.8 BUN/Creatinine Ratio 30 (6-20) Glucose Level 265 mg/dL (70-99) Calcium Level 7.1 mg/dL (8.5-10.1) Total Bilirubin 0.4 mg/dL (0.2-1.0) Aspartate Amino Transf (AST/SGOT) 96 U/L (15-37) Alanine Aminotransferase (ALT/SGPT) 109 U/L (16-63) Alkaline Phosphatase 174 U/L (46-116) Total Protein 4.7 g/dL (6.4-8.2) Albumin 1.7 g/dL (3.4-5.0) Albumin/Globulin Ratio 0.6 (1.0-1.7) Assessment/Plan continue supportive care DAVIDSON VAZQUEZ MD 01/02/19 1015: SURGICAL PROGRESS NOTE Assessment/Plan No acute changes agree with Aury assessment and plan continue supportive care MAIKOL MORRELL [employer] Jan 02, 2019 08:46 DAVIDSON VAZQUEZ MD Jan 02, 2019 10:15
--- NOTE | 2019-01-02 09:07 | PDOC ---
Infectious Disease Note Subjective Subjective Intubated, FiO2 40% Tube feedings No fevers + diarrhea ROS ROS unobtainable Vital Sign Vital Signs Vital Signs Date Time Temp Pulse Resp B/P (MAP) Pulse Ox O2 Delivery O2 Flow Rate FiO2 01/02/19 07:54 95 Ventilator 01/02/19 06:00 94 20 86/56 (66) 01/02/19 04:00 99.2 99.2 Physical Exam PHYSICAL EXAM GENERAL: Intubated, calm, mitts HEENT: PERRL, ETT LUNGS: Mechanical breath sounds . HEART: S1 and S2. irregular ABDOMEN: Obese, soft, hypoactive BS, incision well approx, G-tube : Pepe, scrotal swelling EXTREMITIES: Generalized edema SKIN: Multiple tattoos. Warm and dry. No generalized rash. LUE-PICC (01/01) Labs Lab Laboratory Tests Test 01/01/19 09:10 01/01/19 09:42 01/01/19 12:15 01/01/19 18:33 White Blood Count 5.0 x10^3/uL (4.0-11.0) Red Blood Count 3.19 x10^6/uL (4.30-5.70) Hemoglobin 8.3 g/dL (13.0-17.5) Hematocrit 26.3 % (39.0-53.0) Mean Corpuscular Volume 83 fL (79-100) Mean Corpuscular Hemoglobin 26 pg (25-35) Mean Corpuscular Hemoglobin Concent 32 g/dL (31-37) Red Cell Distribution Width 18.5 % (11.5-14.5) Platelet Count 203 x10^3/uL (140-400) Neutrophils (%) (Auto) 71 % (31-73) Lymphocytes (%) (Auto) 14 % (24-48) Monocytes (%) (Auto) 12 % (0-9) Eosinophils (%) (Auto) 3 % (0-3) Basophils (%) (Auto) 1 % (0-3) Neutrophils # (Auto) 3.5 x10^3uL (1.8-7.7) Lymphocytes # (Auto) 0.7 x10^3/uL (1.0-4.8) Monocytes # (Auto) 0.6 x10^3/uL (0.0-1.1) Eosinophils # (Auto) 0.2 x10^3/uL (0.0-0.7) Basophils # (Auto) 0.0 x10^3/uL (0.0-0.2) Sodium Level 145 mmol/L (136-145) Potassium Level 3.5 mmol/L (3.5-5.1) Chloride Level 104 mmol/L (98-107) Carbon Dioxide Level 38 mmol/L (21-32) Anion Gap 3 (6-14) Blood Urea Nitrogen 15 mg/dL (8-26) Creatinine 0.5 mg/dL (0.7-1.3) Estimated GFR (Cockcroft-Gault) 170.8 BUN/Creatinine Ratio 30 (6-20) Glucose Level 260 mg/dL (70-99) Calcium Level 7.7 mg/dL (8.5-10.1) Total Bilirubin 0.5 mg/dL (0.2-1.0) Aspartate Amino Transf (AST/SGOT) 146 U/L (15-37) Alanine Aminotransferase (ALT/SGPT) 103 U/L (16-63) Alkaline Phosphatase 195 U/L (46-116) Total Protein 4.7 g/dL (6.4-8.2) Albumin 2.0 g/dL (3.4-5.0) Albumin/Globulin Ratio 0.7 (1.0-1.7) Vancomycin Level Trough 2.8 mcg/mL (10.0-20.0) Vancomycin Last Dose Date 01/01/19 Vancomycin Last Dose Time 0130 O2 Saturation 94 % (92-99) Arterial Blood pH 7.52 (7.35-7.45) Arterial Blood pCO2 at Patient Temp 46 mmHg (35-46) Arterial Blood pO2 at Patient Temp 68 mmHg (75-108) Arterial Blood HCO3 36 mmol/L (21-28) Arterial Blood Base Excess 12 mmol/L (-3-3) FiO2 40% Glucose (Fingerstick) 235 mg/dL (70-99) 221 mg/dL (70-99) Test 01/02/19 00:50 01/02/19 05:40 01/02/19 05:42 Glucose (Fingerstick) 221 mg/dL (70-99) 242 mg/dL (70-99) Sodium Level 147 mmol/L (136-145) Potassium Level 3.1 mmol/L (3.5-5.1) Chloride Level 106 mmol/L (98-107) Carbon Dioxide Level 35 mmol/L (21-32) Anion Gap 6 (6-14) Blood Urea Nitrogen 15 mg/dL (8-26) Creatinine 0.5 mg/dL (0.7-1.3) Estimated GFR (Cockcroft-Gault) 170.8 BUN/Creatinine Ratio 30 (6-20) Glucose Level 265 mg/dL (70-99) Calcium Level 7.1 mg/dL (8.5-10.1) Total Bilirubin 0.4 mg/dL (0.2-1.0) Aspartate Amino Transf (AST/SGOT) 96 U/L (15-37) Alanine Aminotransferase (ALT/SGPT) 109 U/L (16-63) Alkaline Phosphatase 174 U/L (46-116) Total Protein 4.7 g/dL (6.4-8.2) Albumin 1.7 g/dL (3.4-5.0) Albumin/Globulin Ratio 0.6 (1.0-1.7) Micro /. BLOOD CULTURE Preliminary NO GROWTH AFTER 2 DAYS Objective Assessment Low grade temps - overall fever curve better Severe cholecystitis, status post cholecystectomy, 12/22/2018. Large pancreatic pseudocyst, status post open pancreatic pseudocyst gastrostomy , open cholecystectomy and gastrostomy tube placement on 12/22/2018. Leukopenia - better Anemia, likely postop blood loss.S/P PRBC transfusion, 12/25 Acute respiratory failure postop intubated. History of heavy alcohol dependence. Systolic congestive heart failure. Coronary artery disease, status post coronary artery bypass graft. Acute metabolic encephalopathy. History of fall with nasal fracture. History of atrial fibrillation. Severe protein-calorie malnutrition. Obesity hypoventilation syndrome, likely obstructive sleep apnea, has bilevel positive airway pressure at night. Plan Plan of Care Cont Merrem since 12/25 Cont Vanc and Micafungin 12/31 Trough 2.8 sputum cult - neg so far Monitor labs/temp Supportive care. Critically ill D/w nursing Attending Co-Sign The patient was seen and interviewed as well as examined at the bedside. The chart was reviewed. The case was discussed. Agree with the plan of care. RACHEL CHEN APRN Jan 02, 2019 09:07 GILMAR COY MD Jan 02, 2019 10:42
[2019-01-02 09:13] LABS: BASE EXCESS ABG 12 mmol/L (-3-3); HCO3 ABG 38 mmol/L (21-28); PCO2 ABG 54 mmHg (35-46); PO2 ABG 57 mmHg (75-108); SAT O2 ABG 89 % (92-99)
[2019-01-02 09:14] LABS: FIO2 ABG 45
[2019-01-02] MEDS: VANCOMYCIN PER PHARMACY MC PRN ×2 (09:53→14:42)
[2019-01-02] MEDS: MICAFUNGIN 100 MG in IV DEXTROSE 5% 100ML 100 ML IV SCH (10:56)
--- NOTE | 2019-01-02 11:18 | PDOC ---
PROGRESS NOTES Subjective Subjective on vent ,low grade fever Objective Objective Vital Signs Date Time Temp Pulse Resp B/P (MAP) Pulse Ox O2 Delivery O2 Flow Rate FiO2 01/02/19 11:00 106 20 103/65 (78) 95 Ventilator 01/02/19 08:00 100.1 100.1 Intake and Output 01/02/19 07:00 Intake Total 2494 ml Output Total 3170 ml Balance -676 ml IV Total 799 ml Tube Feeding 1595 ml Other 100 ml Output Urine Total 3170 ml Gastric Drainage Total 0 ml # Bowel Movements 3 Physical Exam Physical Exam orally intubated Abdomen: Soft, Other (incision clean) Heart: Regular rate, Normal S1, Normal S2, No murmurs, Gallops Extremities: Other (DIFFUSE EDEMA) General: No acute distress HEENT: Other (vent) Lungs: Clear to auscultation, Other (ON VENT) MUSCULOSKELETAL: No deformity, Other (+ EDEMA) Neuro: Other (SEDATED) Psych/Mental Status: Other (SEDATED) Skin: No breakdown COMMENT peg tube+rollins+rectal tube Assessment Assessment IMP: * Pancreatic pseudocyst+h/o necrotizing pancreatitis. 1. Acute respiratory failure on Vent. 2. Acute hypotension resolved , 3. Acute pancreatitis with pseudocyst. 4. Systolic congestive heart failure. 5. Coronary artery disease, history of coronary artery bypass graft x 5. 6. Acute metabolic encephalopathy. 7. History of fall with nasal fracture. 8. History of atrial fibrillation. 9. Hyperlipidemia. 10. Severe protein-calorie malnutrition. 11. Anemia. 12. Obesity hypoventilation syndrome, with likely obstructive sleep apnea, has been on BiPAP at night. PLAN: low grade fever, c/s neg . vent weaning , spoke with pulmonary,low dose propofol POD #11,laparotomy, pancreatic pseudocyst surgery labs reviewed , pot 3.1 , replace cxr no change d/fela TPN for nutrition, tube feedings iv antibiotics maropenum+vanco+diflucan. dvt prevention. spoke with RT lasix prn seen in ICU Comment Review of Relevant I have reviewed the following items johanny (where applicable) has been applied. Labs Laboratory Tests Test 01/01/19 12:15 01/01/19 18:33 01/02/19 00:50 01/02/19 05:40 Glucose (Fingerstick) 235 mg/dL (70-99) 221 mg/dL (70-99) 221 mg/dL (70-99) Sodium Level 147 mmol/L (136-145) Potassium Level 3.1 mmol/L (3.5-5.1) Chloride Level 106 mmol/L (98-107) Carbon Dioxide Level 35 mmol/L (21-32) Anion Gap 6 (6-14) Blood Urea Nitrogen 15 mg/dL (8-26) Creatinine 0.5 mg/dL (0.7-1.3) Estimated GFR (Cockcroft-Gault) 170.8 BUN/Creatinine Ratio 30 (6-20) Glucose Level 265 mg/dL (70-99) Calcium Level 7.1 mg/dL (8.5-10.1) Total Bilirubin 0.4 mg/dL (0.2-1.0) Aspartate Amino Transf (AST/SGOT) 96 U/L (15-37) Alanine Aminotransferase (ALT/SGPT) 109 U/L (16-63) Alkaline Phosphatase 174 U/L (46-116) Total Protein 4.7 g/dL (6.4-8.2) Albumin 1.7 g/dL (3.4-5.0) Albumin/Globulin Ratio 0.6 (1.0-1.7) Test 01/02/19 05:42 01/02/19 08:00 Glucose (Fingerstick) 242 mg/dL (70-99) O2 Saturation 89 % (92-99) Arterial Blood pH 7.46 (7.35-7.45) Arterial Blood pCO2 at Patient Temp 54 mmHg (35-46) Arterial Blood pO2 at Patient Temp 57 mmHg (75-108) Arterial Blood HCO3 38 mmol/L (21-28) Arterial Blood Base Excess 12 mmol/L (-3-3) FiO2 45 Microbiology 12/31/18 Blood Culture - Preliminary, Resulted NO GROWTH AFTER 2 DAYS 12/27/18 - Final, Complete 12/27/18 - Final, Complete 12/27/18 - Final, Complete 12/27/18 Gram Stain Evaluation - Final, Complete 12/27/18 Sputum Culture - Final, Complete 12/27/18 Sputum Result 1 - Final, Complete 12/22/18 Anaerobic/Aerobic Culture - Final, Complete 12/22/18 Anaerobic Culture Result 1 (MELONY) - Final, Complete 12/22/18 Aerobic Culture - Final, Complete 12/22/18 Aerobic Culture Result 1 (MELONY) - Final, Complete 12/22/18 Gram Stain - Final, Complete 12/22/18 Gram Stain Result 1 (MELONY) - Final, Complete 12/22/18 Gram Stain Result 2 (MELONY) - Final, Complete Medications Current Medications Sodium Chloride 110 meq/Sodium Acetate 12 meq/ Potassium Chloride 60 meq/ Potassium Phosphate 20 mmol/ Magnesium Sulfate 28 meq/Calcium Gluconate 9.3 meq / Multivitamins 10 ml/Chromium/ Copper/Manganese/ Seleni/Zn 1 ml/ Insulin Human Regular 100 unit/ Total Parenteral Nutrition/Amino Acids/Dextro... 1,800 ml @ 75 mls/hr TPN CONT IV ; Start 01/01/19 at 22:00; Stop 01/02/19 at 21:59; Status Cancel Vancomycin HCl (Vancomycin Trough Level) 1 each 1X ONCE MC ; Start 01/02/19 at 14:30; Stop 01/02/19 at 14:31 Vitals/I & O Vital Sign - Last 24 Hours 01/01/19 01/01/19 01/01/19 01/01/19 11:43 12:00 12:00 13:00 Temp 98.9 98.9 Pulse 97 97 Resp B/P (MAP) 103/63 (76) 112/64 (80) Pulse Ox 95 96 95 O2 Delivery Ventilator Ventilator Mechanical Ventilator Ventilator 01/01/19 01/01/19 01/01/19 01/01/19 14:00 14:17 15:00 16:00 Pulse 97 97 97 Resp 22 B/P (MAP) 121/69 (86) 122/68 (86) 128/63 (84) Pulse Ox 98 94 98 98 O2 Delivery Ventilator Ventilator Ventilator Ventilator 01/01/19 01/01/19 01/01/19 01/01/19 16:00 16:24 17:00 17:48 Temp 99.0 99.0 Pulse 85 Resp 24 B/P (MAP) 132/58 (82) Pulse Ox 95 98 96 O2 Delivery Mechanical Ventilator Ventilator Ventilator Ventilator 01/01/19 01/01/19 01/01/19 01/01/19 18:00 19:00 20:00 20:15 Temp 97.9 97.9 Pulse 85 82 81 Resp 24 22 21 B/P (MAP) 98/49 (65) 98/49 (65) 116/66 (83) Pulse Ox 98 97 97 O2 Delivery Ventilator Ventilator Ventilator Mechanical Ventilator 01/01/19 01/01/19 01/01/19 01/01/19 20:23 21:00 22:00 23:00 Pulse 85 90 84 Resp 20 22 21 B/P (MAP) 116/66 (83) 113/57 (75) 115/61 (79) Pulse Ox 96 97 96 96 O2 Delivery Ventilator Ventilator Ventilator Ventilator 01/01/19 01/01/19 01/02/19 01/02/19 23:40 23:40 00:00 00:00 Temp 98.0 98.0 Pulse 88 Resp 15 24 B/P (MAP) 142/78 (99) Pulse Ox 96 96 95 O2 Delivery Ventilator Ventilator Ventilator Mechanical Ventilator 01/02/19 01/02/19 01/02/19 01/02/19 00:10 01:00 02:00 02:44 Pulse 90 88 Resp 20 B/P (MAP) 116/66 (83) 126/64 (84) Pulse Ox 97 97 97 95 O2 Delivery Ventilator Ventilator Ventilator Ventilator 01/02/19 01/02/19 01/02/19 01/02/19 03:00 04:00 04:00 05:00 Temp 99.2 99.2 Pulse 89 87 93 Resp 24 B/P (MAP) 121/62 (81) 86/51 (63) 113/59 (77) Pulse Ox 96 95 93 O2 Delivery Ventilator Mechanical Ventilator Ventilator Ventilator 01/02/19 01/02/19 01/02/19 01/02/19 05:46 06:00 07:00 07:54 Pulse 94 104 Resp 19 B/P (MAP) 86/56 (66) 101/69 (80) Pulse Ox 95 95 94 95 O2 Delivery Ventilator Ventilator Ventilator Ventilator 01/02/19 01/02/19 01/02/19 01/02/19 08:00 08:00 09:00 10:00 Temp 100.1 100.1 Pulse 104 114 107 Resp 21 24 22 B/P (MAP) 115/69 (84) 108/73 (85) 93/65 (74) Pulse Ox 94 94 94 O2 Delivery Ventilator Mechanical Ventilator Ventilator Ventilator 01/02/19 11:00 Pulse 106 Resp 20 B/P (MAP) 103/65 (78) Pulse Ox 95 O2 Delivery Ventilator Intake and Output 01/01/19 01/01/19 01/02/19 15:00 23:00 07:00 Intake Total 60 ml 825 ml 1609 ml Output Total 0 ml 2400 ml 770 ml Balance 60 ml -1575 ml 839 ml ARMANDO MCCORMICK MD Jan 02, 2019 11:18
[2019-01-02] MEDS: POTASSIUM CHL 20MEQ PREMIX 50 ML IV SCH ×2 (13:06→14:15)
--- NOTE | 2019-01-02 14:04 | NUR ---
FACULTY CO-SIGN I have reviewed the documentation by vocational nursing instructor: Addendum: 01/02/19 at 1404 by LAINA ALMANZA RN Amended: Links added.
--- NOTE | 2019-01-02 14:32 | PDOC ---
SUBJECTIVE ROS Intubated, alert OBJECTIVE Vital Signs Vital Signs Date Time Temp Pulse Resp B/P (MAP) Pulse Ox O2 Delivery O2 Flow Rate FiO2 01/02/19 14:00 109 23 119/69 (86) 94 Ventilator 01/02/19 12:00 99.8 99.8 I & 0 Intake and Output 01/02/19 07:00 Intake Total 2494 ml Output Total 3170 ml Balance -676 ml IV Total 799 ml Tube Feeding 1595 ml Other 100 ml Output Urine Total 3170 ml Gastric Drainage Total 0 ml # Bowel Movements 3 PHYSICAL EXAM Physical Exam GENERAL: Intubated , alert HEENT: Intubated LUNGS: CTA HEART: S1 and S2. ABDOMEN: Obese, soft, midline incision : Pepe in place, scrotal swelling EXTREMITIES: trace edema. SKIN: Multiple tattoos CENTRAL NERVOUS SYSTEM: Moves all extremities and intubated. DIAGNOSIS/ASSESSMENT Assessment & Plan Edema- Due to 3 rd spacing Low Albumin Wt down since Hospitalization , Bicarb Increasing, Na elevated Good UOP, Recommend decreasing IV Lasix to q12 from q8 Monitor Pancreatic Pseudocyst Resection Expected hypoxemic respiratory failure, status post open pancreatic pseudocyst gastrostomy, open cholecystectomy, G-tube placement. - Intubated, No plans for extubation today DM II Hx of ETOH abuse Discussed with RN COMMENT/RELEVANT DATA Meds Current Medications Medications (Trade) Dose Ordered Sig/Nicola Start Time Stop Time Status Last Admin Dose Admin Acetaminophen (Tylenol Supp) 650 mg PRN Q6HRS PRN 12/31/18 08:15 12/31/18 08:42 650 MG Albumin Human 100 ml @ 100 mls/hr 1X ONCE 12/30/18 10:30 12/30/18 11:29 DC 12/30/18 11:57 100 MLS/HR Bisacodyl (Dulcolax Supp) 10 mg PRN DAILY PRN 12/30/18 09:00 12/30/18 09:06 10 MG Bupivacaine HCl/ Epinephrine Bitart (Sensorcain-Mpf Epi 0.5%-1:[id number]) 30 ml STK-MED ONCE 12/22/18 07:03 12/22/18 08:05 DC 12/22/18 12:23 5 ML Cefazolin Sodium/ Dextrose (Ancef 2gm Premix) 2 gm STK-MED ONCE 12/22/18 12:00 12/23/18 12:38 DC Cellulose (Surgicel Hemostat 4x8) 1 each STK-MED ONCE 12/22/18 07:03 12/22/18 08:05 DC 12/22/18 13:58 1 EACH Chlorhexidine Gluconate (Peridex) 15 ml BID 12/22/18 21:00 12/26/18 07:46 DC 12/25/18 21:12 15 ML Dexamethasone Sodium Phosphate (Decadron) 20 mg STK-MED ONCE 12/22/18 09:59 12/22/18 10:00 DC Dextrose (Dextrose 50%-Water Syringe) 12.5 gm PRN Q15MIN PRN 12/30/18 10:30 Dopamine HCl/ Dextrose 250 ml @ 8.686 mls/ hr CONT PRN 12/22/18 17:45 12/24/18 21:56 21.714 MLS/HR Enoxaparin Sodium (Lovenox 40mg Syringe) 40 mg Q24H 12/23/18 09:00 12/26/18 09:48 DC 12/24/18 08:25 40 MG Ephedrine Sulfate (Akovaz) 50 mg STK-MED ONCE 12/22/18 13:52 12/22/18 13:53 DC Ephedrine Sulfate (ePHEDrine PF IN SALINE SYRINGE) 50 mg STK-MED ONCE 12/22/18 14:29 12/22/18 14:30 DC Famotidine (Pepcid Vial) 20 mg STK-MED ONCE 12/22/18 09:59 12/22/18 10:00 DC Fentanyl Citrate (Fentanyl 2ml Vial) 100 mcg STK-MED ONCE 12/22/18 10:01 12/22/18 10:02 DC Furosemide (Lasix) 40 mg Q8H 12/29/18 12:00 01/02/19 12:16 40 MG Glycopyrrolate (Robinul) 1 mg STK-MED ONCE 12/22/18 12:28 12/22/18 12:29 DC Heparin Sodium (Porcine) 1000 unit/Sodium Chloride 1,001 ml @ 1,001 mls/hr 1X ONCE 12/22/18 06:00 12/22/18 06:59 DC 12/22/18 12:56 Hydromorphone HCl (Dilaudid) 0.5 mg PRN Q10MIN PRN 12/22/18 07:00 12/22/18 19:00 DC Ibuprofen (Motrin) 200 mg 1X PREOP 12/22/18 08:00 12/23/18 12:33 DC Info (Tpn Per Pharmacy) 1 each PRN DAILY PRN 12/23/18 09:15 01/01/19 11:48 DC 12/31/18 13:36 1 EACH Insulin Human Lispro (HumaLOG) 0-7 UNITS TIDWMEALS 12/30/18 12:00 UNV Iohexol (Omnipaque 300 Mg/ml) 100 ml STK-MED ONCE 12/22/18 07:03 12/22/18 08:05 DC 12/22/18 12:24 100 ML Lidocaine HCl (Lidocaine Pf 2% Vial) 5 ml STK-MED ONCE 12/22/18 09:59 12/22/18 10:00 DC Linezolid/Dextrose 300 ml @ 300 mls/hr Q12HR 12/24/18 09:00 12/25/18 09:18 DC 12/25/18 08:41 300 MLS/HR Magnesium Sulfate 50 ml @ 25 mls/hr 1X ONCE 12/30/18 12:15 12/30/18 14:14 DC 12/30/18 12:50 25 MLS/HR Magnesium Sulfate/ Dextrose 100 ml @ 100 mls/hr 1X ONCE 12/27/18 14:00 12/27/18 14:59 DC 12/27/18 13:16 100 MLS/HR Meropenem 500 mg/ Sodium Chloride 50 ml @ 100 mls/hr Q6HRS 12/25/18 12:00 01/02/19 12:16 100 MLS/HR Metronidazole 100 ml @ 100 mls/hr Q12HR 12/22/18 21:00 12/27/18 10:04 DC 12/27/18 08:28 100 MLS/HR Micafungin Sodium 100 mg/Dextrose 100 ml @ 100 mls/hr Q24H 12/31/18 10:00 01/02/19 10:56 100 MLS/HR Midazolam HCl 100 ml @ 0 mls/hr CONT PRN 12/22/18 15:30 12/29/18 16:27 DC 12/29/18 00:23 5 MLS/HR Midazolam HCl (Versed) 2 mg STK-MED ONCE 12/22/18 10:00 12/22/18 10:01 DC Morphine Sulfate (Morphine Sulfate) 2 mg PRN Q2HR PRN 12/29/18 16:30 01/01/19 23:40 2 MG Naloxone HCl (Narcan) 0.4 mg PRN Q2MIN PRN 12/22/18 14:45 Neostigmine Methylsulfate (Neostigmine Methylsulfate) 5 mg STK-MED ONCE 12/22/18 12:29 12/22/18 12:30 DC Ondansetron HCl (Zofran) 4 mg PRN Q6HRS PRN 12/22/18 14:45 Pantoprazole Sodium (PROTONIX VIAL for IV PUSH) 40 mg DAILYAC 12/23/18 10:30 01/02/19 08:33 40 MG Phenylephrine HCl (Jeromy-Synephrine Inj) 10 mg STK-MED ONCE 12/22/18 12:49 12/22/18 12:50 DC Phenylephrine HCl (PHENYLEPHRINE in 0.9% NACL PF) 1 mg STK-MED ONCE 12/22/18 12:39 12/22/18 12:40 DC Piperacillin Sod/ Tazobactam Sod 3.375 gm/Sodium Chloride 50 ml @ 100 mls/hr Q6HRS 12/23/18 18:00 12/25/18 09:18 DC 12/25/18 06:13 100 MLS/HR Potassium Chloride/Water 50 ml @ 50 mls/hr Q1H 01/02/19 12:00 01/02/19 13:59 DC 01/02/19 14:15 50 MLS/HR Potassium Phosphate 10 mmol/ Dextrose 103.3333 ml @ 51.667 m... Q2H 12/24/18 10:30 12/24/18 14:29 DC 12/24/18 13:02 51.667 MLS/HR Prochlorperazine Edisylate (Compazine) 5 mg PACU PRN PRN 12/22/18 07:00 12/22/18 19:00 DC Propofol 100 ml @ 1.621 mls/ hr CONT PRN 12/29/18 16:30 01/02/19 06:56 1.621 MLS/HR Ringer's Solution 1,000 ml @ 100 mls/hr Q10H 12/22/18 16:00 12/25/18 15:08 DC 12/25/18 07:08 100 MLS/HR Rocuronium Kitzmiller (Zemuron) 50 mg STK-MED ONCE 12/22/18 13:52 12/22/18 13:53 DC Sevoflurane (Ultane) 90 ml STK-MED ONCE 12/22/18 12:35 12/22/18 12:36 DC Sodium Chloride (Normal Saline Flush) 3 ml QSHIFT PRN 12/22/18 14:45 Sodium Chloride 110 meq/Sodium Acetate 12 meq/ Potassium Chloride 36 meq/ Magnesium Sulfate 12 meq/Calcium Gluconate 9.3 meq/ Multivitamins 10 ml/Chromium/ Copper/Manganese/ Seleni/Zn 1 ml/ Insulin Human Regular 70 unit/ Total Parenteral Nutrition/Amino Acids/Dextrose/ Fat Emulsion Intravenous 2,400 ml @ 100 mls/hr TPN CONT 12/23/18 22:00 12/24/18 21:59 DC 12/23/18 22:15 100 MLS/HR Sodium Chloride 110 meq/Sodium Acetate 12 meq/ Potassium Chloride 50 meq/ Potassium Phosphate 20 mmol/ Magnesium Sulfate 20 meq/Calcium Gluconate 9.3 meq/ Multivitamins 10 ml/Chromium/ Copper/Manganese/ Seleni/Zn 1 ml/ Insulin Human Regular 80 unit/ Total Parenteral Nutrition/Amino Acids/Dextro... 2,400 ml @ 100 mls/hr TPN CONT 12/24/18 22:00 12/25/18 21:59 DC 12/24/18 23:24 100 MLS/HR Sodium Chloride 110 meq/Sodium Acetate 12 meq/ Potassium Chloride 60 meq/ Potassium Phosphate 20 mmol/ Magnesium Sulfate 25 meq/Calcium Gluconate 9.3 meq/ Multivitamins 10 ml/Chromium/ Copper/Manganese/ Seleni/Zn 1 ml/ Insulin Human Regular 85 unit/ Total Parenteral Nutrition/Amino Acids/Dextro... 1,800 ml @ 75 mls/hr TPN CONT 12/28/18 22:00 12/29/18 21:59 DC 12/28/18 22:25 75 MLS/HR Sodium Chloride 110 meq/Sodium Acetate 12 meq/ Potassium Chloride 60 meq/ Potassium Phosphate 20 mmol/ Magnesium Sulfate 25 meq/Calcium Gluconate 9.3 meq/ Multivitamins 10 ml/Chromium/ Copper/Manganese/ Seleni/Zn 1 ml/ Insulin Human Regular 90 unit/ Total Parenteral Nutrition/Amino Acids/Dextro... 1,800 ml @ 75 mls/hr TPN CONT 12/29/18 22:00 12/30/18 21:59 DC 12/29/18 22:17 75 MLS/HR Sodium Chloride 110 meq/Sodium Acetate 12 meq/ Potassium Chloride 60 meq/ Potassium Phosphate 20 mmol/ Magnesium Sulfate 28 meq/Calcium Gluconate 9.3 meq/ Multivitamins 10 ml/Chromium/ Copper/Manganese/ Seleni/Zn 1 ml/ Insulin Human Regular 100 unit/ Total Parenteral Nutrition/Amino Acids/Dextro... 1,800 ml @ 75 mls/hr TPN CONT 01/01/19 22:00 01/02/19 21:59 Cancel Vancomycin HCl (Vanco Per Pharmacy) 1 each PRN DAILY PRN 12/31/18 08:15 01/02/19 09:53 1 EACH Vancomycin HCl (Vancomycin Trough Level) 1 each 1X ONCE 01/02/19 14:30 01/02/19 14:31 01/02/19 14:18 1 EACH Vancomycin HCl 1.5 gm/Sodium Chloride 500 ml @ 250 mls/hr Q8H 01/01/19 11:00 01/02/19 08:34 250 MLS/HR Vancomycin HCl 2 gm/Sodium Chloride 500 ml @ 250 mls/hr 1X ONCE 12/31/18 09:00 12/31/18 10:59 DC 12/31/18 09:29 250 MLS/HR Lab Laboratory Tests Test 01/01/19 18:33 01/02/19 00:50 01/02/19 05:40 01/02/19 05:42 Glucose (Fingerstick) 221 mg/dL (70-99) 221 mg/dL (70-99) 242 mg/dL (70-99) Sodium Level 147 mmol/L (136-145) Potassium Level 3.1 mmol/L (3.5-5.1) Chloride Level 106 mmol/L (98-107) Carbon Dioxide Level 35 mmol/L (21-32) Anion Gap 6 (6-14) Blood Urea Nitrogen 15 mg/dL (8-26) Creatinine 0.5 mg/dL (0.7-1.3) Estimated GFR (Cockcroft-Gault) 170.8 BUN/Creatinine Ratio 30 (6-20) Glucose Level 265 mg/dL (70-99) Calcium Level 7.1 mg/dL (8.5-10.1) Total Bilirubin 0.4 mg/dL (0.2-1.0) Aspartate Amino Transf (AST/SGOT) 96 U/L (15-37) Alanine Aminotransferase (ALT/SGPT) 109 U/L (16-63) Alkaline Phosphatase 174 U/L (46-116) Total Protein 4.7 g/dL (6.4-8.2) Albumin 1.7 g/dL (3.4-5.0) Albumin/Globulin Ratio 0.6 (1.0-1.7) Test 01/02/19 08:00 01/02/19 12:01 O2 Saturation 89 % (92-99) Arterial Blood pH 7.46 (7.35-7.45) Arterial Blood pCO2 at Patient Temp 54 mmHg (35-46) Arterial Blood pO2 at Patient Temp 57 mmHg (75-108) Arterial Blood HCO3 38 mmol/L (21-28) Arterial Blood Base Excess 12 mmol/L (-3-3) FiO2 45 Glucose (Fingerstick) 268 mg/dL (70-99) Results All relevant outside records, renal labs, imaging studies, telemetry/EKG's were reviewed. INLAY SINGLETARY MD Jan 02, 2019 14:32
--- NOTE | 2019-01-02 14:50 | NUR ---
Pharmacy Vancomycin Dosing Note S:Consulted to monitor and dose vancomycin started 12/31/18. O:JUSTIN OLSEN is a 58 year old M with Empiric Fever . Height: 6 feet, 0 inches Weight: 95.243030 kg [place] Body Weight: 77.60 Adjusted Body Weight: 87.20 Dosing Weight: Actual Other Antibiotics: Merrem Mycamine LABS: Last BUN: 15 Last Creatinine: 0.5 Creatinine Clearance: >100 mL/min Last WBC: 5.0 Last Procalcitonin: Tmax (past 24 hours): 99.2 Microbiology: I/O: 3788/3546 Drug Levels: Last Trough level: 19 on 01/02/19 at 1415 Last dose given 12/31/18 at 0929 Vancomycin Dosing: Loading Dose: 2000 mg x1 Dosing Weight: Actual Target Trough: 15-20 A: Based on: LEVEL P: 1. Continue Vancomycin 1500 mg IV q8h 2. Follow up Trough level NEEDED 3. Pharmacy will continue to monitor, follow and adjust therapy as needed. MARC HUERTA [facility], 01/02/19 [id number]
[2019-01-03] VITALS (24 sets, daily range): BP systolic 96–154; BP diastolic 39–88
[2019-01-03] MEDS: VANCOMYCIN 1.5 GM in IV NORMAL SALINE 500ML BAG 500 ML IV SCH ×4 (00:07→23:12)
[2019-01-03] MEDS: MEROPENEM 500 MG in IV NORMAL SALINE 50ML 50 ML IV SCH ×4 (00:07→17:35)
[2019-01-03] MEDS: INSULIN LISPRO 300 UNITS/3 ML INSULN.PEN. SQ SCH ×4 (00:12→17:37)
[2019-01-03 05:38] LABS: BASO # 0.1 x10^3/uL (0.0-0.2); BASO % 1 % (0-3); EOS # 0.2 x10^3/uL (0.0-0.7); EOS % 2 % (0-3); HEMATOCRIT 32.7 % (39.0-53.0); HEMOGLOBIN 10.2 g/dL (13.0-17.5); LYMPH # 1.2 x10^3/uL (1.0-4.8); LYMPH % 13 % (24-48); MEAN CORPUSCULAR HEMOGLOBIN 26 pg (25-35); MEAN CORPUSCULAR HGB CONC 31 g/dL (31-37); MEAN CORPUSCULAR VOLUME 83 fL (79-100); MONO # 0.8 x10^3/uL (0.0-1.1); MONO % 9 % (0-9); NEUT # 6.8 x10^3uL (1.8-7.7); NEUT % 74 % (31-73); PLATELET COUNT 271 x10^3/uL (140-400); RED BLOOD COUNT 3.96 x10^6/uL (4.30-5.70); RED CELL DISTRIBUTION WIDTH 19.1 % (11.5-14.5); WHITE BLOOD COUNT 9.1 x10^3/uL (4.0-11.0)
[2019-01-03 06:17] LABS: ALBUMIN 1.7 g/dL (3.4-5.0); ALBUMIN/GLOBULIN RATIO 0.5 (1.0-1.7); CALCIUM 7.8 mg/dL (8.5-10.1); CREATININE 0.6 mg/dL (0.7-1.3); GFR 138.4; TOTAL BILIRUBIN 0.5 mg/dL (0.2-1.0); TOTAL PROTEIN 5.1 g/dL (6.4-8.2)
[2019-01-03] MEDS: PANTOPRAZOLE IV PUSH 40 MG VIAL. IVP SCH (07:54)
[2019-01-03] MEDS: FUROSEMIDE 40 MG/4 ML VIAL. IVP SCH ×2 (07:55→21:05)
[2019-01-03] MEDS: MORPHINE SULFATE 2 MG/ML VIAL. IV PRN (08:00)
--- NOTE | 2019-01-03 08:31 | PDOC ---
Infectious Disease Note Subjective Subjective Awake, off sedation Still intubated, weaning trial today per RN Tube feedings Fever 100.0 last evening + diarrhea rectal tube in place No fevers Denies pain Vital Sign Vital Signs Vital Signs Date Time Temp Pulse Resp B/P (MAP) Pulse Ox O2 Delivery O2 Flow Rate FiO2 01/03/19 08:00 Ventilator 01/03/19 07:46 97 01/03/19 07:00 94 22 107/66 (80) 01/03/19 04:00 98.8 98.8 Physical Exam PHYSICAL EXAM GENERAL: Awake, calm HEENT: PERRL, ETT LUNGS: Clear HEART: S1 and S2. ABDOMEN: Obese, soft, hypoactive BS, incision well approx, G-tube; Rectal tube : Pepe, scrotal swelling EXTREMITIES: Generalized edema SKIN: Multiple tattoos. Warm and dry. No generalized rash. 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, nods to simple questions LUE-PICC (01/01) Labs Lab Laboratory Tests Test 01/02/19 12:01 01/02/19 14:15 01/02/19 17:42 01/03/19 00:10 Glucose (Fingerstick) 268 mg/dL (70-99) 304 mg/dL (70-99) 310 mg/dL (70-99) Vancomycin Level Trough 19.0 mcg/mL (10.0-20.0) Vancomycin Last Dose Date Unk Vancomycin Last Dose Time Unk Test 01/03/19 05:20 01/03/19 05:25 White Blood Count 9.1 x10^3/uL (4.0-11.0) Red Blood Count 3.96 x10^6/uL (4.30-5.70) Hemoglobin 10.2 g/dL (13.0-17.5) Hematocrit 32.7 % (39.0-53.0) Mean Corpuscular Volume 83 fL (79-100) Mean Corpuscular Hemoglobin 26 pg (25-35) Mean Corpuscular Hemoglobin Concent 31 g/dL (31-37) Red Cell Distribution Width 19.1 % (11.5-14.5) Platelet Count 271 x10^3/uL (140-400) Neutrophils (%) (Auto) 74 % (31-73) Lymphocytes (%) (Auto) 13 % (24-48) Monocytes (%) (Auto) 9 % (0-9) Eosinophils (%) (Auto) 2 % (0-3) Basophils (%) (Auto) 1 % (0-3) Neutrophils # (Auto) 6.8 x10^3uL (1.8-7.7) Lymphocytes # (Auto) 1.2 x10^3/uL (1.0-4.8) Monocytes # (Auto) 0.8 x10^3/uL (0.0-1.1) Eosinophils # (Auto) 0.2 x10^3/uL (0.0-0.7) Basophils # (Auto) 0.1 x10^3/uL (0.0-0.2) Sodium Level 143 mmol/L (136-145) Potassium Level 4.0 mmol/L (3.5-5.1) Chloride Level 105 mmol/L (98-107) Carbon Dioxide Level 33 mmol/L (21-32) Anion Gap 5 (6-14) Blood Urea Nitrogen 23 mg/dL (8-26) Creatinine 0.6 mg/dL (0.7-1.3) Estimated GFR (Cockcroft-Gault) 138.4 BUN/Creatinine Ratio 38 (6-20) Glucose Level 324 mg/dL (70-99) Calcium Level 7.8 mg/dL (8.5-10.1) Total Bilirubin 0.5 mg/dL (0.2-1.0) Aspartate Amino Transf (AST/SGOT) 34 U/L (15-37) Alanine Aminotransferase (ALT/SGPT) 70 U/L (16-63) Alkaline Phosphatase 153 U/L (46-116) Total Protein 5.1 g/dL (6.4-8.2) Albumin 1.7 g/dL (3.4-5.0) Albumin/Globulin Ratio 0.5 (1.0-1.7) Glucose (Fingerstick) 315 mg/dL (70-99) Micro 4/4. BLOOD CULTURE Preliminary NO GROWTH AFTER 2 DAYS SPUTUM CULT RES 1 Final No growth in 56 - 72 hours. Objective Assessment Low grade temps - overall fever curve better Severe cholecystitis, status post cholecystectomy, 12/22/2018. Large pancreatic pseudocyst, status post open pancreatic pseudocyst gastrostomy , open cholecystectomy and gastrostomy tube placement on 12/22/2018. Leukopenia - better Anemia, likely postop blood loss.S/P PRBC transfusion, 12/25 Acute respiratory failure postop intubated. History of heavy alcohol dependence. Systolic congestive heart failure. Coronary artery disease, status post coronary artery bypass graft. Acute metabolic encephalopathy. History of fall with nasal fracture. History of atrial fibrillation. Severe protein-calorie malnutrition. Obesity hypoventilation syndrome, likely obstructive sleep apnea, has bilevel positive airway pressure at night. Plan Plan of Care Cont vanc, Merrem and micafungin Trough 19.0 Monitor labs/temp Supportive care. D/w nursing Critically ill Attending Co-Sign The patient was seen and interviewed as well as examined at the bedside. The chart was reviewed. The case was discussed. Agree with the plan of care. RACHEL CHEN APRN Jan 03, 2019 08:31 GILMAR COY MD Jan 03, 2019 09:38
--- NOTE | 2019-01-03 08:53 | NUR ---
Pt awake on breathing trial at this. Pt guarding stomach and when asked if he is in pain he shakes his head yes. Gave PRN morphine. Reassessed pain and pt still in pain. Spoke to Lucía Metzger NP and received orders for pain medication. Will continue to monitor.
[2019-01-03] MEDS: MORPHINE SULFATE 2 MG/ML VIAL. IV ONE ×2 (09:15→09:56)
--- NOTE | 2019-01-03 09:20 | PDOC ---
MAIKOL MORRELL LEAF FAT SCRAPER 01/03/19 0920: SURGICAL PROGRESS NOTE Subjective awake, on vent abdominal pain Vital Signs Vital Signs Date Time Temp Pulse Resp B/P (MAP) Pulse Ox O2 Delivery O2 Flow Rate FiO2 01/03/19 08:47 Ventilator 01/03/19 08:00 98.8 104 22 132/71 (91) 94 98.8 I&O Intake and Output 01/03/19 07:00 Intake Total 3313 ml Output Total 1568 ml Balance 1745 ml Intake Oral 0 ml IV Total 1495 ml Tube Feeding 1718 ml Other 100 ml Output Urine Total 1268 ml Stool Total 300 ml Gastric Drainage Total 0 ml PATIENT HAS A MAGAÑA: Yes General: Alert, Cooperative, No acute distress Abdomen: Soft, Other (ND, g tube) Labs Laboratory Tests Test 01/01/19 09:42 01/01/19 12:15 01/01/19 18:33 01/02/19 00:50 O2 Saturation 94 % (92-99) Arterial Blood pH 7.52 (7.35-7.45) Arterial Blood pCO2 at Patient Temp 46 mmHg (35-46) Arterial Blood pO2 at Patient Temp 68 mmHg (75-108) Arterial Blood HCO3 36 mmol/L (21-28) Arterial Blood Base Excess 12 mmol/L (-3-3) FiO2 40% Glucose (Fingerstick) 235 mg/dL (70-99) 221 mg/dL (70-99) 221 mg/dL (70-99) Test 01/02/19 05:40 01/02/19 05:42 01/02/19 08:00 01/02/19 12:01 Sodium Level 147 mmol/L (136-145) Potassium Level 3.1 mmol/L (3.5-5.1) Chloride Level 106 mmol/L (98-107) Carbon Dioxide Level 35 mmol/L (21-32) Anion Gap 6 (6-14) Blood Urea Nitrogen 15 mg/dL (8-26) Creatinine 0.5 mg/dL (0.7-1.3) Estimated GFR (Cockcroft-Gault) 170.8 BUN/Creatinine Ratio 30 (6-20) Glucose Level 265 mg/dL (70-99) Calcium Level 7.1 mg/dL (8.5-10.1) Total Bilirubin 0.4 mg/dL (0.2-1.0) Aspartate Amino Transf (AST/SGOT) 96 U/L (15-37) Alanine Aminotransferase (ALT/SGPT) 109 U/L (16-63) Alkaline Phosphatase 174 U/L (46-116) Total Protein 4.7 g/dL (6.4-8.2) Albumin 1.7 g/dL (3.4-5.0) Albumin/Globulin Ratio 0.6 (1.0-1.7) Glucose (Fingerstick) 242 mg/dL (70-99) 268 mg/dL (70-99) O2 Saturation 89 % (92-99) Arterial Blood pH 7.46 (7.35-7.45) Arterial Blood pCO2 at Patient Temp 54 mmHg (35-46) Arterial Blood pO2 at Patient Temp 57 mmHg (75-108) Arterial Blood HCO3 38 mmol/L (21-28) Arterial Blood Base Excess 12 mmol/L (-3-3) FiO2 45 Test 01/02/19 14:15 01/02/19 17:42 01/03/19 00:10 01/03/19 05:20 Vancomycin Level Trough 19.0 mcg/mL (10.0-20.0) Vancomycin Last Dose Date Unk Vancomycin Last Dose Time Unk Glucose (Fingerstick) 304 mg/dL (70-99) 310 mg/dL (70-99) White Blood Count 9.1 x10^3/uL (4.0-11.0) Red Blood Count 3.96 x10^6/uL (4.30-5.70) Hemoglobin 10.2 g/dL (13.0-17.5) Hematocrit 32.7 % (39.0-53.0) Mean Corpuscular Volume 83 fL (79-100) Mean Corpuscular Hemoglobin 26 pg (25-35) Mean Corpuscular Hemoglobin Concent 31 g/dL (31-37) Red Cell Distribution Width 19.1 % (11.5-14.5) Platelet Count 271 x10^3/uL (140-400) Neutrophils (%) (Auto) 74 % (31-73) Lymphocytes (%) (Auto) 13 % (24-48) Monocytes (%) (Auto) 9 % (0-9) Eosinophils (%) (Auto) 2 % (0-3) Basophils (%) (Auto) 1 % (0-3) Neutrophils # (Auto) 6.8 x10^3uL (1.8-7.7) Lymphocytes # (Auto) 1.2 x10^3/uL (1.0-4.8) Monocytes # (Auto) 0.8 x10^3/uL (0.0-1.1) Eosinophils # (Auto) 0.2 x10^3/uL (0.0-0.7) Basophils # (Auto) 0.1 x10^3/uL (0.0-0.2) Sodium Level 143 mmol/L (136-145) Potassium Level 4.0 mmol/L (3.5-5.1) Chloride Level 105 mmol/L (98-107) Carbon Dioxide Level 33 mmol/L (21-32) Anion Gap 5 (6-14) Blood Urea Nitrogen 23 mg/dL (8-26) Creatinine 0.6 mg/dL (0.7-1.3) Estimated GFR (Cockcroft-Gault) 138.4 BUN/Creatinine Ratio 38 (6-20) Glucose Level 324 mg/dL (70-99) Calcium Level 7.8 mg/dL (8.5-10.1) Total Bilirubin 0.5 mg/dL (0.2-1.0) Aspartate Amino Transf (AST/SGOT) 34 U/L (15-37) Alanine Aminotransferase (ALT/SGPT) 70 U/L (16-63) Alkaline Phosphatase 153 U/L (46-116) Total Protein 5.1 g/dL (6.4-8.2) Albumin 1.7 g/dL (3.4-5.0) Albumin/Globulin Ratio 0.5 (1.0-1.7) Test 01/03/19 05:25 Glucose (Fingerstick) 315 mg/dL (70-99) Laboratory Tests Test 01/02/19 12:01 01/02/19 14:15 01/02/19 17:42 01/03/19 00:10 Glucose (Fingerstick) 268 mg/dL (70-99) 304 mg/dL (70-99) 310 mg/dL (70-99) Vancomycin Level Trough 19.0 mcg/mL (10.0-20.0) Vancomycin Last Dose Date Unk Vancomycin Last Dose Time Unk Test 01/03/19 05:20 01/03/19 05:25 White Blood Count 9.1 x10^3/uL (4.0-11.0) Red Blood Count 3.96 x10^6/uL (4.30-5.70) Hemoglobin 10.2 g/dL (13.0-17.5) Hematocrit 32.7 % (39.0-53.0) Mean Corpuscular Volume 83 fL (79-100) Mean Corpuscular Hemoglobin 26 pg (25-35) Mean Corpuscular Hemoglobin Concent 31 g/dL (31-37) Red Cell Distribution Width 19.1 % (11.5-14.5) Platelet Count 271 x10^3/uL (140-400) Neutrophils (%) (Auto) 74 % (31-73) Lymphocytes (%) (Auto) 13 % (24-48) Monocytes (%) (Auto) 9 % (0-9) Eosinophils (%) (Auto) 2 % (0-3) Basophils (%) (Auto) 1 % (0-3) Neutrophils # (Auto) 6.8 x10^3uL (1.8-7.7) Lymphocytes # (Auto) 1.2 x10^3/uL (1.0-4.8) Monocytes # (Auto) 0.8 x10^3/uL (0.0-1.1) Eosinophils # (Auto) 0.2 x10^3/uL (0.0-0.7) Basophils # (Auto) 0.1 x10^3/uL (0.0-0.2) Sodium Level 143 mmol/L (136-145) Potassium Level 4.0 mmol/L (3.5-5.1) Chloride Level 105 mmol/L (98-107) Carbon Dioxide Level 33 mmol/L (21-32) Anion Gap 5 (6-14) Blood Urea Nitrogen 23 mg/dL (8-26) Creatinine 0.6 mg/dL (0.7-1.3) Estimated GFR (Cockcroft-Gault) 138.4 BUN/Creatinine Ratio 38 (6-20) Glucose Level 324 mg/dL (70-99) Calcium Level 7.8 mg/dL (8.5-10.1) Total Bilirubin 0.5 mg/dL (0.2-1.0) Aspartate Amino Transf (AST/SGOT) 34 U/L (15-37) Alanine Aminotransferase (ALT/SGPT) 70 U/L (16-63) Alkaline Phosphatase 153 U/L (46-116) Total Protein 5.1 g/dL (6.4-8.2) Albumin 1.7 g/dL (3.4-5.0) Albumin/Globulin Ratio 0.5 (1.0-1.7) Glucose (Fingerstick) 315 mg/dL (70-99) Problem List improving awake continue TFs DAVIDSON VAQZUEZ MD 01/03/19 1234: SURGICAL PROGRESS NOTE Assessment/Plan No acute changes. Agree with So's assessment and plan. MAIKOL MORRELL LEAF FAT SCRAPER Jan 03, 2019 09:20 DAVIDSON VAZQUEZ MD Jan 03, 2019 12:34
[2019-01-03 09:25] LABS: BASE EXCESS ABG 6 mmol/L (-3-3); HCO3 ABG 30 mmol/L (21-28); PCO2 ABG 41 mmHg (35-46); PO2 ABG 67 mmHg (75-108); SAT O2 ABG 93 % (92-99)
[2019-01-03 09:25] LABS: BASE EXCESS ABG 10 mmol/L (-3-3); HCO3 ABG 34 mmol/L (21-28); PCO2 ABG 44 mmHg (35-46); PO2 ABG 61 mmHg (75-108); SAT O2 ABG 92 % (92-99)
[2019-01-03 09:28] LABS: FIO2 ABG 40
[2019-01-03] MEDS: MICAFUNGIN 100 MG in IV DEXTROSE 5% 100ML 100 ML IV SCH (09:36)
[2019-01-03 09:37] LABS: FIO2 ABG 40
--- NOTE | 2019-01-03 10:04 | PDOC ---
PROGRESS NOTES Subjective Subjective extubated this morning Objective Objective Vital Signs Date Time Temp Pulse Resp B/P (MAP) Pulse Ox O2 Delivery O2 Flow Rate FiO2 01/03/19 09:56 50 Venturi Mask 01/03/19 09:00 98 24 141/76 (97) 01/03/19 08:00 98.8 98.8 Intake and Output 01/03/19 07:00 Intake Total 3313 ml Output Total 1568 ml Balance 1745 ml Intake Oral 0 ml IV Total 1495 ml Tube Feeding 1718 ml Other 100 ml Output Urine Total 1268 ml Stool Total 300 ml Gastric Drainage Total 0 ml Physical Exam Physical Exam face mask Abdomen: Soft, Other (ND, g tube) Heart: Regular rate, Normal S1, Normal S2, No murmurs, Gallops Extremities: Other (DIFFUSE EDEMA) General: Alert, Cooperative, No acute distress HEENT: Other (vent) Lungs: Clear to auscultation, Other (ON VENT) MUSCULOSKELETAL: No deformity, Other (+ EDEMA) Neuro: Other (SEDATED) Psych/Mental Status: Other (SEDATED) Skin: No breakdown COMMENT peg tube+rollins+rectal tube Assessment Assessment IMP: * Pancreatic pseudocyst+h/o necrotizing pancreatitis. 1. Acute respiratory failure on Vent. 2. Acute hypotension resolved , 3. Acute pancreatitis with pseudocyst. 4. Systolic congestive heart failure. 5. Coronary artery disease, history of coronary artery bypass graft x 5. 6. Acute metabolic encephalopathy. 7. History of fall with nasal fracture. 8. History of atrial fibrillation. 9. Hyperlipidemia. 10. Severe protein-calorie malnutrition. 11. Anemia. 12. Obesity hypoventilation syndrome, with likely obstructive sleep apnea, has been on BiPAP at night. PLAN: extubated this morning low grade fever resolved, c/s neg . Select tomorrow? POD #12,laparotomy, pancreatic pseudocyst surgery labs reviewed , pot 4.3 , cxr no change d/fela TPN for nutrition, tube feedings iv antibiotics maropenum+vanco+diflucan. dvt prevention. spoke with RT lasix prn seen in ICU Comment Review of Relevant I have reviewed the following items johanny (where applicable) has been applied. Labs Laboratory Tests Test 01/02/19 12:01 01/02/19 14:15 01/02/19 17:42 01/03/19 00:10 Glucose (Fingerstick) 268 mg/dL (70-99) 304 mg/dL (70-99) 310 mg/dL (70-99) Vancomycin Level Trough 19.0 mcg/mL (10.0-20.0) Vancomycin Last Dose Date Unk Vancomycin Last Dose Time Unk Test 01/03/19 05:20 01/03/19 05:25 01/03/19 08:00 01/03/19 09:10 White Blood Count 9.1 x10^3/uL (4.0-11.0) Red Blood Count 3.96 x10^6/uL (4.30-5.70) Hemoglobin 10.2 g/dL (13.0-17.5) Hematocrit 32.7 % (39.0-53.0) Mean Corpuscular Volume 83 fL (79-100) Mean Corpuscular Hemoglobin 26 pg (25-35) Mean Corpuscular Hemoglobin Concent 31 g/dL (31-37) Red Cell Distribution Width 19.1 % (11.5-14.5) Platelet Count 271 x10^3/uL (140-400) Neutrophils (%) (Auto) 74 % (31-73) Lymphocytes (%) (Auto) 13 % (24-48) Monocytes (%) (Auto) 9 % (0-9) Eosinophils (%) (Auto) 2 % (0-3) Basophils (%) (Auto) 1 % (0-3) Neutrophils # (Auto) 6.8 x10^3uL (1.8-7.7) Lymphocytes # (Auto) 1.2 x10^3/uL (1.0-4.8) Monocytes # (Auto) 0.8 x10^3/uL (0.0-1.1) Eosinophils # (Auto) 0.2 x10^3/uL (0.0-0.7) Basophils # (Auto) 0.1 x10^3/uL (0.0-0.2) Sodium Level 143 mmol/L (136-145) Potassium Level 4.0 mmol/L (3.5-5.1) Chloride Level 105 mmol/L (98-107) Carbon Dioxide Level 33 mmol/L (21-32) Anion Gap 5 (6-14) Blood Urea Nitrogen 23 mg/dL (8-26) Creatinine 0.6 mg/dL (0.7-1.3) Estimated GFR (Cockcroft-Gault) 138.4 BUN/Creatinine Ratio 38 (6-20) Glucose Level 324 mg/dL (70-99) Calcium Level 7.8 mg/dL (8.5-10.1) Total Bilirubin 0.5 mg/dL (0.2-1.0) Aspartate Amino Transf (AST/SGOT) 34 U/L (15-37) Alanine Aminotransferase (ALT/SGPT) 70 U/L (16-63) Alkaline Phosphatase 153 U/L (46-116) Total Protein 5.1 g/dL (6.4-8.2) Albumin 1.7 g/dL (3.4-5.0) Albumin/Globulin Ratio 0.5 (1.0-1.7) Glucose (Fingerstick) 315 mg/dL (70-99) O2 Saturation 93 % (92-99) 92 % (92-99) Arterial Blood pH 7.48 (7.35-7.45) 7.51 (7.35-7.45) Arterial Blood pCO2 at Patient Temp 41 mmHg (35-46) 44 mmHg (35-46) Arterial Blood pO2 at Patient Temp 67 mmHg (75-108) 61 mmHg (75-108) Arterial Blood HCO3 30 mmol/L (21-28) 34 mmol/L (21-28) Arterial Blood Base Excess 6 mmol/L (-3-3) 10 mmol/L (-3-3) FiO2 40 40 Microbiology 12/31/18 Blood Culture - Preliminary, Resulted NO GROWTH AFTER 3 DAYS 12/27/18 - Final, Complete 12/27/18 - Final, Complete 12/27/18 - Final, Complete 12/27/18 Gram Stain Evaluation - Final, Complete 12/27/18 Sputum Culture - Final, Complete 12/27/18 Sputum Result 1 - Final, Complete 12/22/18 Anaerobic/Aerobic Culture - Final, Complete 12/22/18 Anaerobic Culture Result 1 (MELONY) - Final, Complete 12/22/18 Aerobic Culture - Final, Complete 12/22/18 Aerobic Culture Result 1 (MELONY) - Final, Complete 12/22/18 Gram Stain - Final, Complete 12/22/18 Gram Stain Result 1 (MELONY) - Final, Complete 12/22/18 Gram Stain Result 2 (MELONY) - Final, Complete Medications Current Medications Furosemide (Lasix) 40 mg Q12HR IVP Last administered on 01/03/19at 07:55; Start 01/02/19 at 21:00 Morphine Sulfate (Morphine Sulfate) 2 mg 1X ONCE IV Last administered on at 09:56; Start 01/03/19 at 09:15; Stop 01/03/19 at 09:16; Status DC Morphine Sulfate (Morphine Sulfate) 4 mg PRN Q3HRS PRN IV PAIN; Start 01/03/19 at 09:00 Potassium Chloride/Water 50 ml @ 50 mls/hr Q1H IV Last administered on at 14:15; Start 01/02/19 at 12:00; Stop 01/02/19 at 13:59; Status DC Vancomycin HCl (Vancomycin Trough Level) 1 each 1X ONCE MC Last administered on 01/02/19at 14:18; Start 01/02/19 at 14:30; Stop 01/02/19 at 14:31; Status DC Vitals/I & O Vital Sign - Last 24 Hours 01/02/19 01/02/19 01/02/19 01/02/19 11:00 12:00 12:00 12:28 Temp 99.8 99.8 Pulse 106 106 Resp 20 24 B/P (MAP) 103/65 (78) 105/63 (77) Pulse Ox 95 95 95 O2 Delivery Ventilator Ventilator Mechanical Ventilator Ventilator 01/02/19 01/02/19 01/02/19 01/02/19 13:00 13:58 14:00 15:00 Pulse 105 109 106 Resp 24 23 19 B/P (MAP) 116/63 (80) 119/69 (86) 129/77 (94) Pulse Ox 94 93 94 94 O2 Delivery Ventilator Ventilator Ventilator Ventilator 01/02/19 01/02/19 01/02/19 01/02/19 16:00 16:00 17:00 18:00 Temp 99.2 99.2 Pulse 111 111 102 Resp 20 19 20 B/P (MAP) 108/74 (85) 126/78 (94) 114/73 (87) Pulse Ox 93 93 94 O2 Delivery Mechanical Ventilator Ventilator Ventilator Ventilator 01/02/19 01/02/19 01/02/19 01/02/19 19:00 20:00 20:00 20:34 Temp 100.0 100.0 Pulse 115 96 Resp 29 20 B/P (MAP) 118/65 (82) 101/64 (76) Pulse Ox 94 95 95 O2 Delivery Ventilator Ventilator Mechanical Ventilator Ventilator 01/02/19 01/02/19 01/02/19 01/02/19 21:00 21:06 22:00 23:00 Pulse 93 102 93 Resp 27 28 17 B/P (MAP) 100/55 (70) 96/66 (76) 90/59 (69) Pulse Ox 95 95 92 94 O2 Delivery Ventilator Ventilator Ventilator Ventilator 01/02/19 01/03/19 01/03/19 01/03/19 23:30 00:00 00:00 01:00 Temp 99.0 99.0 Pulse 90 92 Resp 26 24 B/P (MAP) 118/60 (79) 96/59 (71) Pulse Ox 94 93 94 O2 Delivery Ventilator Ventilator Mechanical Ventilator Ventilator 01/03/19 01/03/19 01/03/19 01/03/19 01:45 02:00 03:00 04:00 Temp 98.8 98.8 Pulse 87 86 82 Resp 15 23 22 B/P (MAP) 107/68 (81) 106/66 (79) 108/67 (81) Pulse Ox 94 94 95 95 O2 Delivery Ventilator Ventilator Ventilator Ventilator 01/03/19 01/03/19 01/03/19 01/03/19 04:00 04:40 05:00 06:00 Pulse 83 96 Resp 16 23 B/P (MAP) 101/63 (76) 118/79 (92) Pulse Ox 94 96 94 O2 Delivery Mechanical Ventilator Ventilator Ventilator Ventilator 01/03/19 01/03/19 01/03/19 01/03/19 07:00 07:46 08:00 08:00 Temp 98.8 98.8 Pulse 94 104 Resp 22 22 B/P (MAP) 107/66 (80) 132/71 (91) Pulse Ox 97 97 94 O2 Delivery Ventilator Ventilator Ventilator Ventilator 01/03/19 01/03/19 01/03/19 01/03/19 08:00 08:30 08:47 09:00 Pulse 98 Resp 24 B/P (MAP) 141/76 (97) Pulse Ox 93 O2 Delivery Mechanical Ventilator Ventilator Ventilator Ventilator 01/03/19 09:56 Pulse Ox 50 O2 Delivery Venturi Mask Intake and Output 401/02/19 01/03/19 15:00 23:00 07:00 Intake Total 250 ml 1537 ml 1526 ml Output Total 730 ml 488 ml 350 ml Balance -480 ml 1049 ml 1176 ml ARMANDO MCCORMICK MD Jan 03, 2019 10:04
--- NOTE | 2019-01-03 10:15 | NUR ---
Patient extubated at 0955 to 50% Venti Mask. Will continue to titrate oxygen as patient tolerates.
--- NOTE | 2019-01-03 13:58 | PDOC ---
SUBJECTIVE ROS Extubated this am, No complaints OBJECTIVE Vital Signs Vital Signs Date Time Temp Pulse Resp B/P (MAP) Pulse Ox O2 Delivery O2 Flow Rate FiO2 01/03/19 13:00 104 22 121/72 (88) 95 Nasal Cannula 4.0 01/03/19 12:00 98.9 98.9 I & 0 Intake and Output 01/03/19 07:00 Intake Total 3313 ml Output Total 1568 ml Balance 1745 ml Intake Oral 0 ml IV Total 1495 ml Tube Feeding 1718 ml Other 100 ml Output Urine Total 1268 ml Stool Total 300 ml Gastric Drainage Total 0 ml PHYSICAL EXAM Physical Exam GENERAL: NAD HEENT: OM moist, On O2 by NC LUNGS: CTA HEART: S1 and S2. ABDOMEN: Obese, soft : Pepe in place, EXTREMITIES: trace edema. SKIN: Multiple tattoos CENTRAL NERVOUS SYSTEM: AXO x 3 DIAGNOSIS/ASSESSMENT Assessment & Plan Edema- Due to 3 rd spacing Low Albumin Wt down since Hospitalization , Bicarb stable Good UOP, IV Lasix decreased to q12 from q8 yesterday , good uop Monitor Pancreatic Pseudocyst Resection Expected hypoxemic respiratory failure, status post open pancreatic pseudocyst gastrostomy, open cholecystectomy, G-tube placement. DM II Hx of ETOH abuse Will sign off Discussed with RN COMMENT/RELEVANT DATA Meds Current Medications Medications (Trade) Dose Ordered Sig/Nicola Start Time Stop Time Status Last Admin Dose Admin Acetaminophen (Tylenol Supp) 650 mg PRN Q6HRS PRN 12/31/18 08:15 12/31/18 08:42 650 MG Albumin Human 100 ml @ 100 mls/hr 1X ONCE 12/30/18 10:30 12/30/18 11:29 DC 12/30/18 11:57 100 MLS/HR Bisacodyl (Dulcolax Supp) 10 mg PRN DAILY PRN 12/30/18 09:00 12/30/18 09:06 10 MG Bupivacaine HCl/ Epinephrine Bitart (Sensorcain-Mpf Epi 0.5%-[id number]) 30 ml STK-MED ONCE 12/22/18 07:03 12/22/18 08:05 DC 12/22/18 12:23 5 ML Cefazolin Sodium/ Dextrose (Ancef 2gm Premix) 2 gm STK-MED ONCE 12/22/18 12:00 12/23/18 12:38 DC Cellulose (Surgicel Hemostat 4x8) 1 each STK-MED ONCE 12/22/18 07:03 12/22/18 08:05 DC 12/22/18 13:58 1 EACH Chlorhexidine Gluconate (Peridex) 15 ml BID 12/22/18 21:00 12/26/18 07:46 DC 12/25/18 21:12 15 ML Dexamethasone Sodium Phosphate (Decadron) 20 mg STK-MED ONCE 12/22/18 09:59 12/22/18 10:00 DC Dextrose (Dextrose 50%-Water Syringe) 12.5 gm PRN Q15MIN PRN 12/30/18 10:30 Dopamine HCl/ Dextrose 250 ml @ 8.686 mls/ hr CONT PRN 12/22/18 17:45 12/24/18 21:56 21.714 MLS/HR Enoxaparin Sodium (Lovenox 40mg Syringe) 40 mg Q24H 12/23/18 09:00 12/26/18 09:48 DC 12/24/18 08:25 40 MG Ephedrine Sulfate (Akovaz) 50 mg STK-MED ONCE 12/22/18 13:52 12/22/18 13:53 DC Ephedrine Sulfate (ePHEDrine PF IN SALINE SYRINGE) 50 mg STK-MED ONCE 12/22/18 14:29 12/22/18 14:30 DC Famotidine (Pepcid Vial) 20 mg STK-MED ONCE 12/22/18 09:59 12/22/18 10:00 DC Fentanyl Citrate (Fentanyl 2ml Vial) 100 mcg STK-MED ONCE 12/22/18 10:01 12/22/18 10:02 DC Furosemide (Lasix) 40 mg Q12HR 01/02/19 21:00 01/03/19 07:55 40 MG Glycopyrrolate (Robinul) 1 mg STK-MED ONCE 12/22/18 12:28 12/22/18 12:29 DC Heparin Sodium (Porcine) 1000 unit/Sodium Chloride 1,001 ml @ 1,001 mls/hr 1X ONCE 12/22/18 06:00 12/22/18 06:59 DC 12/22/18 12:56 Hydromorphone HCl (Dilaudid) 0.5 mg PRN Q10MIN PRN 12/22/18 07:00 12/22/18 19:00 DC Ibuprofen (Motrin) 200 mg 1X PREOP 12/22/18 08:00 12/23/18 12:33 DC Info (Tpn Per Pharmacy) 1 each PRN DAILY PRN 12/23/18 09:15 01/01/19 11:48 DC 12/31/18 13:36 1 EACH Insulin Human Lispro (HumaLOG) 0-7 UNITS TIDWMEALS 12/30/18 12:00 UNV Iohexol (Omnipaque 300 Mg/ml) 100 ml STK-MED ONCE 12/22/18 07:03 12/22/18 08:05 DC 12/22/18 12:24 100 ML Lidocaine HCl (Lidocaine Pf 2% Vial) 5 ml STK-MED ONCE 12/22/18 09:59 12/22/18 10:00 DC Linezolid/Dextrose 300 ml @ 300 mls/hr Q12HR 12/24/18 09:00 12/25/18 09:18 DC 12/25/18 08:41 300 MLS/HR Magnesium Sulfate 50 ml @ 25 mls/hr 1X ONCE 12/30/18 12:15 12/30/18 14:14 DC 12/30/18 12:50 25 MLS/HR Magnesium Sulfate/ Dextrose 100 ml @ 100 mls/hr 1X ONCE 12/27/18 14:00 12/27/18 14:59 DC 12/27/18 13:16 100 MLS/HR Meropenem 500 mg/ Sodium Chloride 50 ml @ 100 mls/hr Q6HRS 12/25/18 12:00 01/03/19 12:06 100 MLS/HR Metronidazole 100 ml @ 100 mls/hr Q12HR 12/22/18 21:00 12/27/18 10:04 DC 12/27/18 08:28 100 MLS/HR Micafungin Sodium 100 mg/Dextrose 100 ml @ 100 mls/hr Q24H 12/31/18 10:00 01/03/19 09:36 100 MLS/HR Midazolam HCl 100 ml @ 0 mls/hr CONT PRN 12/22/18 15:30 12/29/18 16:27 DC 12/29/18 00:23 5 MLS/HR Midazolam HCl (Versed) 2 mg STK-MED ONCE 12/22/18 10:00 12/22/18 10:01 DC Morphine Sulfate (Morphine Sulfate) 2 mg 1X ONCE 01/03/19 09:15 01/03/19 09:16 DC 01/03/19 09:56 2 MG Naloxone HCl (Narcan) 0.4 mg PRN Q2MIN PRN 12/22/18 14:45 Neostigmine Methylsulfate (Neostigmine Methylsulfate) 5 mg STK-MED ONCE 12/22/18 12:29 12/22/18 12:30 DC Ondansetron HCl (Zofran) 4 mg PRN Q6HRS PRN 12/22/18 14:45 Pantoprazole Sodium (PROTONIX VIAL for IV PUSH) 40 mg DAILYAC 12/23/18 10:30 01/03/19 07:54 40 MG Phenylephrine HCl (Jeromy-Synephrine Inj) 10 mg STK-MED ONCE 12/22/18 12:49 12/22/18 12:50 DC Phenylephrine HCl (PHENYLEPHRINE in 0.9% NACL PF) 1 mg STK-MED ONCE 12/22/18 12:39 12/22/18 12:40 DC Piperacillin Sod/ Tazobactam Sod 3.375 gm/Sodium Chloride 50 ml @ 100 mls/hr Q6HRS 12/23/18 18:00 12/25/18 09:18 DC 12/25/18 06:13 100 MLS/HR Potassium Chloride/Water 50 ml @ 50 mls/hr Q1H 01/02/19 12:00 01/02/19 13:59 DC 01/02/19 14:15 50 MLS/HR Potassium Phosphate 10 mmol/ Dextrose 103.3333 ml @ 51.667 m... Q2H 12/24/18 10:30 12/24/18 14:29 DC 12/24/18 13:02 51.667 MLS/HR Prochlorperazine Edisylate (Compazine) 5 mg PACU PRN PRN 12/22/18 07:00 12/22/18 19:00 DC Propofol 100 ml @ 1.621 mls/ hr CONT PRN 12/29/18 16:30 01/02/19 23:36 19.447 MLS/HR Ringer's Solution 1,000 ml @ 100 mls/hr Q10H 12/22/18 16:00 12/25/18 15:08 DC 12/25/18 07:08 100 MLS/HR Rocuronium Hatteras (Zemuron) 50 mg STK-MED ONCE 12/22/18 13:52 12/22/18 13:53 DC Sevoflurane (Ultane) 90 ml STK-MED ONCE 12/22/18 12:35 12/22/18 12:36 DC Sodium Chloride (Normal Saline Flush) 3 ml QSHIFT PRN 12/22/18 14:45 Sodium Chloride 110 meq/Sodium Acetate 12 meq/ Potassium Chloride 36 meq/ Magnesium Sulfate 12 meq/Calcium Gluconate 9.3 meq/ Multivitamins 10 ml/Chromium/ Copper/Manganese/ Seleni/Zn 1 ml/ Insulin Human Regular 70 unit/ Total Parenteral Nutrition/Amino Acids/Dextrose/ Fat Emulsion Intravenous 2,400 ml @ 100 mls/hr TPN CONT 12/23/18 22:00 12/24/18 21:59 DC 12/23/18 22:15 100 MLS/HR Sodium Chloride 110 meq/Sodium Acetate 12 meq/ Potassium Chloride 50 meq/ Potassium Phosphate 20 mmol/ Magnesium Sulfate 20 meq/Calcium Gluconate 9.3 meq/ Multivitamins 10 ml/Chromium/ Copper/Manganese/ Seleni/Zn 1 ml/ Insulin Human Regular 80 unit/ Total Parenteral Nutrition/Amino Acids/Dextro... 2,400 ml @ 100 mls/hr TPN CONT 12/24/18 22:00 12/25/18 21:59 DC 12/24/18 23:24 100 MLS/HR Sodium Chloride 110 meq/Sodium Acetate 12 meq/ Potassium Chloride 60 meq/ Potassium Phosphate 20 mmol/ Magnesium Sulfate 25 meq/Calcium Gluconate 9.3 meq/ Multivitamins 10 ml/Chromium/ Copper/Manganese/ Seleni/Zn 1 ml/ Insulin Human Regular 85 unit/ Total Parenteral Nutrition/Amino Acids/Dextro... 1,800 ml @ 75 mls/hr TPN CONT 12/28/18 22:00 12/29/18 21:59 DC 12/28/18 22:25 75 MLS/HR Sodium Chloride 110 meq/Sodium Acetate 12 meq/ Potassium Chloride 60 meq/ Potassium Phosphate 20 mmol/ Magnesium Sulfate 25 meq/Calcium Gluconate 9.3 meq/ Multivitamins 10 ml/Chromium/ Copper/Manganese/ Seleni/Zn 1 ml/ Insulin Human Regular 90 unit/ Total Parenteral Nutrition/Amino Acids/Dextro... 1,800 ml @ 75 mls/hr TPN CONT 12/29/18 22:00 12/30/18 21:59 DC 12/29/18 22:17 75 MLS/HR Sodium Chloride 110 meq/Sodium Acetate 12 meq/ Potassium Chloride 60 meq/ Potassium Phosphate 20 mmol/ Magnesium Sulfate 28 meq/Calcium Gluconate 9.3 meq/ Multivitamins 10 ml/Chromium/ Copper/Manganese/ Seleni/Zn 1 ml/ Insulin Human Regular 100 unit/ Total Parenteral Nutrition/Amino Acids/Dextro... 1,800 ml @ 75 mls/hr TPN CONT 01/01/19 22:00 01/02/19 21:59 Cancel Vancomycin HCl (Vanco Per Pharmacy) 1 each PRN DAILY PRN 12/31/18 08:15 01/02/19 14:42 1 EACH Vancomycin HCl (Vancomycin Trough Level) 1 each 1X ONCE 01/02/19 14:30 01/02/19 14:31 DC 01/02/19 14:18 1 EACH Vancomycin HCl 1.5 gm/Sodium Chloride 500 ml @ 250 mls/hr Q8H 01/01/19 11:00 01/03/19 05:18 250 MLS/HR Vancomycin HCl 2 gm/Sodium Chloride 500 ml @ 250 mls/hr 1X ONCE 12/31/18 09:00 12/31/18 10:59 DC 12/31/18 09:29 250 MLS/HR Lab Laboratory Tests Test 01/02/19 14:15 01/02/19 17:42 01/03/19 00:10 01/03/19 05:20 Vancomycin Level Trough 19.0 mcg/mL (10.0-20.0) Vancomycin Last Dose Date Unk Vancomycin Last Dose Time Unk Glucose (Fingerstick) 304 mg/dL (70-99) 310 mg/dL (70-99) White Blood Count 9.1 x10^3/uL (4.0-11.0) Red Blood Count 3.96 x10^6/uL (4.30-5.70) Hemoglobin 10.2 g/dL (13.0-17.5) Hematocrit 32.7 % (39.0-53.0) Mean Corpuscular Volume 83 fL (79-100) Mean Corpuscular Hemoglobin 26 pg (25-35) Mean Corpuscular Hemoglobin Concent 31 g/dL (31-37) Red Cell Distribution Width 19.1 % (11.5-14.5) Platelet Count 271 x10^3/uL (140-400) Neutrophils (%) (Auto) 74 % (31-73) Lymphocytes (%) (Auto) 13 % (24-48) Monocytes (%) (Auto) 9 % (0-9) Eosinophils (%) (Auto) 2 % (0-3) Basophils (%) (Auto) 1 % (0-3) Neutrophils # (Auto) 6.8 x10^3uL (1.8-7.7) Lymphocytes # (Auto) 1.2 x10^3/uL (1.0-4.8) Monocytes # (Auto) 0.8 x10^3/uL (0.0-1.1) Eosinophils # (Auto) 0.2 x10^3/uL (0.0-0.7) Basophils # (Auto) 0.1 x10^3/uL (0.0-0.2) Sodium Level 143 mmol/L (136-145) Potassium Level 4.0 mmol/L (3.5-5.1) Chloride Level 105 mmol/L (98-107) Carbon Dioxide Level 33 mmol/L (21-32) Anion Gap 5 (6-14) Blood Urea Nitrogen 23 mg/dL (8-26) Creatinine 0.6 mg/dL (0.7-1.3) Estimated GFR (Cockcroft-Gault) 138.4 BUN/Creatinine Ratio 38 (6-20) Glucose Level 324 mg/dL (70-99) Calcium Level 7.8 mg/dL (8.5-10.1) Total Bilirubin 0.5 mg/dL (0.2-1.0) Aspartate Amino Transf (AST/SGOT) 34 U/L (15-37) Alanine Aminotransferase (ALT/SGPT) 70 U/L (16-63) Alkaline Phosphatase 153 U/L (46-116) Total Protein 5.1 g/dL (6.4-8.2) Albumin 1.7 g/dL (3.4-5.0) Albumin/Globulin Ratio 0.5 (1.0-1.7) Test 4/7/19 05:25 01/03/19 08:00 01/03/19 09:10 01/03/19 12:05 Glucose (Fingerstick) 315 mg/dL (70-99) 340 mg/dL (70-99) O2 Saturation 93 % (92-99) 92 % (92-99) Arterial Blood pH 7.48 (7.35-7.45) 7.51 (7.35-7.45) Arterial Blood pCO2 at Patient Temp 41 mmHg (35-46) 44 mmHg (35-46) Arterial Blood pO2 at Patient Temp 67 mmHg (75-108) 61 mmHg (75-108) Arterial Blood HCO3 30 mmol/L (21-28) 34 mmol/L (21-28) Arterial Blood Base Excess 6 mmol/L (-3-3) 10 mmol/L (-3-3) FiO2 40 40 Results All relevant outside records, renal labs, imaging studies, telemetry/EKG's were reviewed. NILAY SINGLETARY MD Jan 03, 2019 13:58
--- NOTE | 2019-01-03 15:11 | PDOC ---
PULMONARY PROGRESS NOTES Subjective did well on CPAP trial extubated this am Vitals Vital Signs Date Time Temp Pulse Resp B/P (MAP) Pulse Ox O2 Delivery O2 Flow Rate FiO2 01/03/19 14:00 97 19 136/67 (90) 96 Nasal Cannula 4.0 01/03/19 12:00 98.9 98.9 Comments ros as mentioned as above discussed w rn, rt other sys otherwise neg on vent open eyes w verbal stimuli General: Alert, No acute distress HEENT: Other (nc at perrl nose clear orally intubated neck no lad no thyromegaly) Lungs: Other (decrease bs) Cardiovascular: S1, S2 Abdomen: Soft, Non-tender, Other (G TUBE no mass) Extremities: Other (EDEMA) Skin: Warm Labs Laboratory Tests Test 01/01/19 18:33 01/02/19 00:50 01/02/19 05:40 01/02/19 05:42 Glucose (Fingerstick) 221 mg/dL (70-99) 221 mg/dL (70-99) 242 mg/dL (70-99) Sodium Level 147 mmol/L (136-145) Potassium Level 3.1 mmol/L (3.5-5.1) Chloride Level 106 mmol/L (98-107) Carbon Dioxide Level 35 mmol/L (21-32) Anion Gap 6 (6-14) Blood Urea Nitrogen 15 mg/dL (8-26) Creatinine 0.5 mg/dL (0.7-1.3) Estimated GFR (Cockcroft-Gault) 170.8 BUN/Creatinine Ratio 30 (6-20) Glucose Level 265 mg/dL (70-99) Calcium Level 7.1 mg/dL (8.5-10.1) Total Bilirubin 0.4 mg/dL (0.2-1.0) Aspartate Amino Transf (AST/SGOT) 96 U/L (15-37) Alanine Aminotransferase (ALT/SGPT) 109 U/L (16-63) Alkaline Phosphatase 174 U/L (46-116) Total Protein 4.7 g/dL (6.4-8.2) Albumin 1.7 g/dL (3.4-5.0) Albumin/Globulin Ratio 0.6 (1.0-1.7) Test 01/02/19 08:00 01/02/19 12:01 01/02/19 14:15 01/02/19 17:42 O2 Saturation 89 % (92-99) Arterial Blood pH 7.46 (7.35-7.45) Arterial Blood pCO2 at Patient Temp 54 mmHg (35-46) Arterial Blood pO2 at Patient Temp 57 mmHg (75-108) Arterial Blood HCO3 38 mmol/L (21-28) Arterial Blood Base Excess 12 mmol/L (-3-3) FiO2 45 Glucose (Fingerstick) 268 mg/dL (70-99) 304 mg/dL (70-99) Vancomycin Level Trough 19.0 mcg/mL (10.0-20.0) Vancomycin Last Dose Date Unk Vancomycin Last Dose Time Unk Test 01/03/19 00:10 01/03/19 05:20 01/03/19 05:25 01/03/19 08:00 Glucose (Fingerstick) 310 mg/dL (70-99) 315 mg/dL (70-99) White Blood Count 9.1 x10^3/uL (4.0-11.0) Red Blood Count 3.96 x10^6/uL (4.30-5.70) Hemoglobin 10.2 g/dL (13.0-17.5) Hematocrit 32.7 % (39.0-53.0) Mean Corpuscular Volume 83 fL (79-100) Mean Corpuscular Hemoglobin 26 pg (25-35) Mean Corpuscular Hemoglobin Concent 31 g/dL (31-37) Red Cell Distribution Width 19.1 % (11.5-14.5) Platelet Count 271 x10^3/uL (140-400) Neutrophils (%) (Auto) 74 % (31-73) Lymphocytes (%) (Auto) 13 % (24-48) Monocytes (%) (Auto) 9 % (0-9) Eosinophils (%) (Auto) 2 % (0-3) Basophils (%) (Auto) 1 % (0-3) Neutrophils # (Auto) 6.8 x10^3uL (1.8-7.7) Lymphocytes # (Auto) 1.2 x10^3/uL (1.0-4.8) Monocytes # (Auto) 0.8 x10^3/uL (0.0-1.1) Eosinophils # (Auto) 0.2 x10^3/uL (0.0-0.7) Basophils # (Auto) 0.1 x10^3/uL (0.0-0.2) Sodium Level 143 mmol/L (136-145) Potassium Level 4.0 mmol/L (3.5-5.1) Chloride Level 105 mmol/L (98-107) Carbon Dioxide Level 33 mmol/L (21-32) Anion Gap 5 (6-14) Blood Urea Nitrogen 23 mg/dL (8-26) Creatinine 0.6 mg/dL (0.7-1.3) Estimated GFR (Cockcroft-Gault) 138.4 BUN/Creatinine Ratio 38 (6-20) Glucose Level 324 mg/dL (70-99) Calcium Level 7.8 mg/dL (8.5-10.1) Total Bilirubin 0.5 mg/dL (0.2-1.0) Aspartate Amino Transf (AST/SGOT) 34 U/L (15-37) Alanine Aminotransferase (ALT/SGPT) 70 U/L (16-63) Alkaline Phosphatase 153 U/L (46-116) Total Protein 5.1 g/dL (6.4-8.2) Albumin 1.7 g/dL (3.4-5.0) Albumin/Globulin Ratio 0.5 (1.0-1.7) O2 Saturation 93 % (92-99) Arterial Blood pH 7.48 (7.35-7.45) Arterial Blood pCO2 at Patient Temp 41 mmHg (35-46) Arterial Blood pO2 at Patient Temp 67 mmHg (75-108) Arterial Blood HCO3 30 mmol/L (21-28) Arterial Blood Base Excess 6 mmol/L (-3-3) FiO2 40 Test 01/03/19 09:10 01/03/19 12:05 O2 Saturation 92 % (92-99) Arterial Blood pH 7.51 (7.35-7.45) Arterial Blood pCO2 at Patient Temp 44 mmHg (35-46) Arterial Blood pO2 at Patient Temp 61 mmHg (75-108) Arterial Blood HCO3 34 mmol/L (21-28) Arterial Blood Base Excess 10 mmol/L (-3-3) FiO2 40 Glucose (Fingerstick) 340 mg/dL (70-99) Laboratory Tests Test 01/02/19 17:42 01/03/19 00:10 01/03/19 05:20 01/03/19 05:25 Glucose (Fingerstick) 304 mg/dL (70-99) 310 mg/dL (70-99) 315 mg/dL (70-99) White Blood Count 9.1 x10^3/uL (4.0-11.0) Red Blood Count 3.96 x10^6/uL (4.30-5.70) Hemoglobin 10.2 g/dL (13.0-17.5) Hematocrit 32.7 % (39.0-53.0) Mean Corpuscular Volume 83 fL (79-100) Mean Corpuscular Hemoglobin 26 pg (25-35) Mean Corpuscular Hemoglobin Concent 31 g/dL (31-37) Red Cell Distribution Width 19.1 % (11.5-14.5) Platelet Count 271 x10^3/uL (140-400) Neutrophils (%) (Auto) 74 % (31-73) Lymphocytes (%) (Auto) 13 % (24-48) Monocytes (%) (Auto) 9 % (0-9) Eosinophils (%) (Auto) 2 % (0-3) Basophils (%) (Auto) 1 % (0-3) Neutrophils # (Auto) 6.8 x10^3uL (1.8-7.7) Lymphocytes # (Auto) 1.2 x10^3/uL (1.0-4.8) Monocytes # (Auto) 0.8 x10^3/uL (0.0-1.1) Eosinophils # (Auto) 0.2 x10^3/uL (0.0-0.7) Basophils # (Auto) 0.1 x10^3/uL (0.0-0.2) Sodium Level 143 mmol/L (136-145) Potassium Level 4.0 mmol/L (3.5-5.1) Chloride Level 105 mmol/L (98-107) Carbon Dioxide Level 33 mmol/L (21-32) Anion Gap 5 (6-14) Blood Urea Nitrogen 23 mg/dL (8-26) Creatinine 0.6 mg/dL (0.7-1.3) Estimated GFR (Cockcroft-Gault) 138.4 BUN/Creatinine Ratio 38 (6-20) Glucose Level 324 mg/dL (70-99) Calcium Level 7.8 mg/dL (8.5-10.1) Total Bilirubin 0.5 mg/dL (0.2-1.0) Aspartate Amino Transf (AST/SGOT) 34 U/L (15-37) Alanine Aminotransferase (ALT/SGPT) 70 U/L (16-63) Alkaline Phosphatase 153 U/L (46-116) Total Protein 5.1 g/dL (6.4-8.2) Albumin 1.7 g/dL (3.4-5.0) Albumin/Globulin Ratio 0.5 (1.0-1.7) Test 01/03/19 08:00 01/03/19 09:10 01/03/19 12:05 O2 Saturation 93 % (92-99) 92 % (92-99) Arterial Blood pH 7.48 (7.35-7.45) 7.51 (7.35-7.45) Arterial Blood pCO2 at Patient Temp 41 mmHg (35-46) 44 mmHg (35-46) Arterial Blood pO2 at Patient Temp 67 mmHg (75-108) 61 mmHg (75-108) Arterial Blood HCO3 30 mmol/L (21-28) 34 mmol/L (21-28) Arterial Blood Base Excess 6 mmol/L (-3-3) 10 mmol/L (-3-3) FiO2 40 40 Glucose (Fingerstick) 340 mg/dL (70-99) Medications Active Scripts Medications Dose Route/Sig Max Daily Dose Days Date Category Trophamine (Amino Acids 10 %) 500 Ml Iv.soln 500 Ml IV DAILY 199912/21/18 Reported Duoneb 0.5-3(2.5) Mg/3 Ml (Albuterol/Ipratropium) 3 Ml Ampul.neb 3 Ml NEB BID 12/21/18 Reported Dulcolax (Bisacodyl) 10 Mg Supp.rect 10 Mg RC PRN DAILY PRN 12/21/18 Reported Duoneb 0.5-3(2.5) Mg/3 Ml (Albuterol/Ipratropium) 3 Ml Ampul.neb 3 Ml NEB PRN Q4HRS PRN 12/21/18 Reported Atorvastatin Calcium 40 Mg Tablet 1 Tab PO QHS 12/21/18 Reported Simethicone 80 Mg Tab.chew 80 Mg PO PRN TID PRN 12/21/18 Reported Humalog (Insulin Lispro) 100 Unit/1 Ml Vial 0 SQ Q6HRS 12/21/18 Reported Ondansetron Hcl 4 Mg/2 Ml Vial (Ondansetron Hcl/Pf) 4 Mg/2 Ml Vial 4 Mg IJ PRN Q6HRS PRN 12/21/18 Reported Actos (Pioglitazone Hcl) 15 Mg Tablet 1 Tab PO DAILY 12/21/18 Reported Tylenol Extra Strength (Acetaminophen) 500 Mg Tablet 1,000 Mg PO PRN Q6HRS PRN 12/21/18 Reported Senokot-S Tablet (Sennosides/Docusate Sodium) 1 Each Tablet 1 Tab PO BID 12/21/18 Reported Vitamin D3 (Cholecalciferol (Vitamin D3)) 1,000 Unit Tablet 1 Tab PO DAILY 12/21/18 Reported Carvedilol (Carvedilol) 12.5 Mg Tablet 12.5 Mg PO BIDWMEALS 12/21/18 Reported Comments reviewed CXR 4/5 Small right effusions with adjacent infiltrates ( R>L). No change. Impression . 1. Expected hypoxemic respiratory failure, status post open pancreatic pseudocyst gastrostomy, open cholecystectomy, G-tube placement. extubated 01/03 2. History of necrotizing pancreatitis. 3. Abnormal x-ray c/w basal effusions/ Mild CHF 4. Possible sepsis. 5. Coronary artery disease, status post coronary artery bypass grafting. 6. History of alcoholism. 7. Protein malnutrition, present upon admission. 8. Acute blood loss anemia, expected. S/P TRANSFUSIONS 9. encephalopathy/ sedation induced./ improving 10. abnl LFT's Plan . 02 titration to keep sat 94% slow PROGRESS OFF PRESSORS ABG NOTED INCREASE LFTs per GI TPN FOR NUTRITION SPEECH EVAL FRIDAY DVT PROPH FOLLOW CONSULTANTS INPUT DIURESIS FOLLOW CXR ABX PER ID discussed w rn, rt STEVIE WHITE MD Jan 03, 2019 15:11
[2019-01-03] MEDS: MORPHINE SULFATE 4 MG/ML VIAL. IV PRN ×3 (15:20→23:10)
[2019-01-04] VITALS (16 sets, daily range): BP systolic 113–155; BP diastolic 56–78
[2019-01-04] MEDS: MEROPENEM 500 MG in IV NORMAL SALINE 50ML 50 ML IV SCH ×3 (00:15→12:23)
[2019-01-04] MEDS: INSULIN LISPRO 300 UNITS/3 ML INSULN.PEN. SQ SCH ×3 (00:17→12:29)
[2019-01-04] MEDS: VANCOMYCIN 1.5 GM in IV NORMAL SALINE 500ML BAG 500 ML IV SCH (06:02)
[2019-01-04] MEDS: MORPHINE SULFATE 4 MG/ML VIAL. IV PRN (06:06)
[2019-01-04] MEDS: FUROSEMIDE 40 MG/4 ML VIAL. IVP SCH (08:16)
[2019-01-04] MEDS: PANTOPRAZOLE IV PUSH 40 MG VIAL. IVP SCH (08:17)
[2019-01-04] MEDS: MICAFUNGIN 100 MG in IV DEXTROSE 5% 100ML 100 ML IV SCH (08:17)
--- NOTE | 2019-01-04 09:06 | PDOC ---
Infectious Disease Note Subjective Subjective extubated, awake, says feeling better ROS ROS no n/v/d/sob Vital Sign Vital Signs Vital Signs Date Time Temp Pulse Resp B/P (MAP) Pulse Ox O2 Delivery O2 Flow Rate FiO2 01/04/19 08:00 99 18 113/56 (75) 95 Nasal Cannula 4.0 01/04/19 07:00 99.6 99.6 Physical Exam PHYSICAL EXAM GENERAL: Awake, calm HEENT: PERRL, LUNGS: Clear HEART: S1 and S2. ABDOMEN: Obese, soft, hypoactive BS, incision well approx, G-tube; Rectal tube : Pepe, scrotal swelling EXTREMITIES: Generalized edema SKIN: Multiple tattoos. Warm and dry. No generalized rash. CHERRY PITTER: Awake, no focal deficit LUE-PICC (01/01) Labs Lab Laboratory Tests Test 01/03/19 09:10 01/03/19 12:05 01/03/19 17:35 01/04/19 00:16 O2 Saturation 92 % (92-99) Arterial Blood pH 7.51 (7.35-7.45) Arterial Blood pCO2 at Patient Temp 44 mmHg (35-46) Arterial Blood pO2 at Patient Temp 61 mmHg (75-108) Arterial Blood HCO3 34 mmol/L (21-28) Arterial Blood Base Excess 10 mmol/L (-3-3) FiO2 40 Glucose (Fingerstick) 340 mg/dL (70-99) 362 mg/dL (70-99) 310 mg/dL (70-99) Test 01/04/19 06:08 Glucose (Fingerstick) 305 mg/dL (70-99) Micro Microbiology 12/31/18 Blood Culture - Preliminary, Resulted NO GROWTH AFTER 4 DAYS 01/02/19 - Final, Resulted 01/02/19 - Final, Resulted 01/02/19 - Final, Resulted 01/02/19 Gram Stain Evaluation - Final, Resulted 01/02/19 Sputum Culture, Resulted Pending 12/22/18 Anaerobic/Aerobic Culture - Final, Complete 12/22/18 Anaerobic Culture Result 1 (MELONY) - Final, Complete 12/22/18 Aerobic Culture - Final, Complete 12/22/18 Aerobic Culture Result 1 (MELONY) - Final, Complete 12/22/18 Gram Stain - Final, Complete 12/22/18 Gram Stain Result 1 (MELONY) - Final, Complete 12/22/18 Gram Stain Result 2 (MELONY) - Final, Complete Objective Assessment Low grade temps - overall fever curve better Severe cholecystitis, status post cholecystectomy, 12/22/2018. Large pancreatic pseudocyst, status post open pancreatic pseudocyst gastrostomy , open cholecystectomy and gastrostomy tube placement on 12/22/2018. Leukopenia - better Anemia, likely postop blood loss.S/P PRBC transfusion, 12/25 Acute respiratory failure postop intubated. History of heavy alcohol dependence. Systolic congestive heart failure. Coronary artery disease, status post coronary artery bypass graft. Acute metabolic encephalopathy. History of fall with nasal fracture. History of atrial fibrillation. Severe protein-calorie malnutrition. Obesity hypoventilation syndrome, likely obstructive sleep apnea, has bilevel positive airway pressure at night. Plan Plan of Care Cont Merrem and micafungin Trough 19.0 d/c vanc Monitor labs/temp Supportive care. D/w nursing Critically ill GILMAR COY MD Jan 04, 2019 09:06
--- NOTE | 2019-01-04 09:35 | PDOC ---
Subjective: Subjective: Doing okay. Objective: Objective: Per RN - tolerated G tube feeds, lots of rectal tube output, asks about Questran. Vital Signs: Vital Signs Date Time Temp Pulse Resp B/P (MAP) Pulse Ox O2 Delivery O2 Flow Rate FiO2 01/04/19 08:00 99 18 113/56 (75) 95 Nasal Cannula 4.0 01/04/19 07:00 99.6 99.6 Labs: Laboratory Tests Test 01/03/19 12:05 01/03/19 17:35 01/04/19 00:16 01/04/19 06:08 Glucose (Fingerstick) 340 mg/dL 362 mg/dL 310 mg/dL 305 mg/dL BLOOD CULTURE Preliminary NO GROWTH AFTER 4 DAYS GRAM STAIN WHITE BLOOD CELLS Final None seen GRAM STAIN EPITHELIAL CELLS Final Few GRAM STAIN RESULT 1 Final No organisms seen GRAM STAIN EVALUATION Final Comment This specimen is of good quality and is acceptable for routine bacterial culture. Performed at: [facility] - [facility] [address], [place], [place] [id number] [employer] Paralegal: SUE Worrell MD, Phone: [phone] SPUTUM CULTURE-LC PENDING PE: GEN: NAD LUNGS: NC, clear anteriorly HEART: RRR ABD: NABS, soft - rectal tube w/ light-colored stool NEURO/PSYCH: A & O 3 A/P: S/p pancreatic pseudocystogastrostomy and cholecystectomy w/ G tube placement Resp failure - now extubated Elevated LFTs - improved off TPN Anemia - better -- Will review w/ Dr. Giraldo. KALEE ULLOA Jan 04, 2019 09:34
--- NOTE | 2019-01-04 10:25 | PDOC ---
IM PROGRESS NOTES- Subjective Subjective The patient was extubated yesterday. He is tolerating the extubation well. He is sitting up in chair and would like to drink water. He is thirsty. He denies any pain, nausea or dyspnea. Patient is a poor historian and unable to do full systems review. Objective Vitals Vital Signs Date Time Temp Pulse Resp B/P (MAP) Pulse Ox O2 Delivery O2 Flow Rate FiO2 01/04/19 10:05 97 18 128/67 (87) 96 Nasal Cannula 4.0 01/04/19 07:00 99.6 99.6 Input & Output Intake and Output 01/04/19 07:00 Intake Total 3560.67 ml Output Total 3085 ml Balance 475.67 ml IV Total 1883.67 ml Tube Feeding 1552 ml Other 125 ml Output Urine Total 1985 ml Stool Total 1100 ml Gastric Drainage Total 0 ml Physical Exam Physical Exam GENERAL: The patient is alert and weak. He is not in any acute distress. He is a poor historian. HEENT: Throat is not congested. LUNGS: Decreased breath sounds at bases. CARDIOVASCULAR: S1, S2 regular. ABDOMEN: The patient is status post surgery with dressing in place. Bowel sounds present EXTREMITIES: No edema of lower extremities. CENTRAL NERVOUS SYSTEM: Alert and responsive, weak Labs Laboratory Tests Test 01/02/19 12:01 01/02/19 14:15 01/02/19 17:42 01/03/19 00:10 Glucose (Fingerstick) 268 mg/dL (70-99) 304 mg/dL (70-99) 310 mg/dL (70-99) Vancomycin Level Trough 19.0 mcg/mL (10.0-20.0) Vancomycin Last Dose Date Unk Vancomycin Last Dose Time Unk Test 01/03/19 05:20 01/03/19 05:25 01/03/19 08:00 01/03/19 09:10 White Blood Count 9.1 x10^3/uL (4.0-11.0) Red Blood Count 3.96 x10^6/uL (4.30-5.70) Hemoglobin 10.2 g/dL (13.0-17.5) Hematocrit 32.7 % (39.0-53.0) Mean Corpuscular Volume 83 fL (79-100) Mean Corpuscular Hemoglobin 26 pg (25-35) Mean Corpuscular Hemoglobin Concent 31 g/dL (31-37) Red Cell Distribution Width 19.1 % (11.5-14.5) Platelet Count 271 x10^3/uL (140-400) Neutrophils (%) (Auto) 74 % (31-73) Lymphocytes (%) (Auto) 13 % (24-48) Monocytes (%) (Auto) 9 % (0-9) Eosinophils (%) (Auto) 2 % (0-3) Basophils (%) (Auto) 1 % (0-3) Neutrophils # (Auto) 6.8 x10^3uL (1.8-7.7) Lymphocytes # (Auto) 1.2 x10^3/uL (1.0-4.8) Monocytes # (Auto) 0.8 x10^3/uL (0.0-1.1) Eosinophils # (Auto) 0.2 x10^3/uL (0.0-0.7) Basophils # (Auto) 0.1 x10^3/uL (0.0-0.2) Sodium Level 143 mmol/L (136-145) Potassium Level 4.0 mmol/L (3.5-5.1) Chloride Level 105 mmol/L (98-107) Carbon Dioxide Level 33 mmol/L (21-32) Anion Gap 5 (6-14) Blood Urea Nitrogen 23 mg/dL (8-26) Creatinine 0.6 mg/dL (0.7-1.3) Estimated GFR (Cockcroft-Gault) 138.4 BUN/Creatinine Ratio 38 (6-20) Glucose Level 324 mg/dL (70-99) Calcium Level 7.8 mg/dL (8.5-10.1) Total Bilirubin 0.5 mg/dL (0.2-1.0) Aspartate Amino Transf (AST/SGOT) 34 U/L (15-37) Alanine Aminotransferase (ALT/SGPT) 70 U/L (16-63) Alkaline Phosphatase 153 U/L (46-116) Total Protein 5.1 g/dL (6.4-8.2) Albumin 1.7 g/dL (3.4-5.0) Albumin/Globulin Ratio 0.5 (1.0-1.7) Glucose (Fingerstick) 315 mg/dL (70-99) O2 Saturation 93 % (92-99) 92 % (92-99) Arterial Blood pH 7.48 (7.35-7.45) 7.51 (7.35-7.45) Arterial Blood pCO2 at Patient Temp 41 mmHg (35-46) 44 mmHg (35-46) Arterial Blood pO2 at Patient Temp 67 mmHg (75-108) 61 mmHg (75-108) Arterial Blood HCO3 30 mmol/L (21-28) 34 mmol/L (21-28) Arterial Blood Base Excess 6 mmol/L (-3-3) 10 mmol/L (-3-3) FiO2 40 40 Test 01/03/19 12:05 01/03/19 17:35 01/04/19 00:16 01/04/19 06:08 Glucose (Fingerstick) 340 mg/dL (70-99) 362 mg/dL (70-99) 310 mg/dL (70-99) 305 mg/dL (70-99) Laboratory Tests Test 01/03/19 12:05 01/03/19 17:35 01/04/19 00:16 01/04/19 06:08 Glucose (Fingerstick) 340 mg/dL (70-99) 362 mg/dL (70-99) 310 mg/dL (70-99) 305 mg/dL (70-99) Assessment Assessment IMP: * Pancreatic pseudocyst+h/o necrotizing pancreatitis. 1. Acute respiratory failure on Vent. 2. Acute hypotension resolved , 3. Acute pancreatitis with pseudocyst. 4. Systolic congestive heart failure. 5. Coronary artery disease, history of coronary artery bypass graft x 5. 6. Acute metabolic encephalopathy. 7. History of fall with nasal fracture. 8. History of atrial fibrillation. 9. Hyperlipidemia. 10. Severe protein-calorie malnutrition. 11. Anemia. 12. Obesity hypoventilation syndrome, with likely obstructive sleep apnea, has been on BiPAP at night. PLAN: The patient was extubated yesterday. Tolerating extubation well. POD #13,laparotomy, pancreatic pseudocyst surgery labs reviewed , pot 4.3 , cxr no change He has a rectal tube with liquid stool. tube feedings Patient is on IV vancomycin, meropenem and the Diflucan. dvt prevention. Patient remains in ICU. Lasix dose has been decreased to twice daily. Patient is improving. Order speech therapy physical therapy occupational therapy. Diet will be advanced as tolerated if his swallowing is better. [facility] and [facility]. Discharge management 35 minutes. Plan Plan For more details regarding further plans, please refer to the orders. REHANA CASE MD Jan 04, 2019 10:25
[2019-01-04] MEDS ORDERED: DEXTROSE 50% IV (10:30)
[2019-01-04] MEDS ORDERED: MORP4CAR IV (10:30)
[2019-01-04] MEDS ORDERED: WATER IV (10:30)
[2019-01-04] MEDS ORDERED: NALO0.4V14 IV (10:30)
[2019-01-04] MEDS ORDERED: INSULIN GLARGINE 300 UNITS/3 ML INSULN.PEN. SQ SCH (10:30)
[2019-01-04] MEDS ORDERED: ACET650S11 PR (10:30)
[2019-01-04] MEDS ORDERED: INSU100I13 SQ (10:30)
[2019-01-04] MEDS ORDERED: 0.92DISP2 IV (10:30)
--- NOTE | 2019-01-04 10:36 | SNU/HH DC ---
DISCHARGE ORDERS DISCHARGE INFORMATION: CONDITION ON DISCHARGE: Stable LTAC: ADMIT TO LTAC: Yes POST DISCHARGE ORDERS: ACTIVITY ORDERS: Other, see below (as per PT OT) DIET AFTER DISCHARGE: Glucerna 1.5 60 mL/h, water flush 100 mL every 6 hours CHECKS AFTER DISCHARGE: CHECKS AFTER DISCHARGE: Check blood press - daily, Check blood sugar, ac/hs FOLLOW-UP: PHYSICIAN FOLLOW-UP: by Dr. REHANA Case ADDITIONAL FOLLOW-UP: resume previous consults LAB ORDERS FOR FOLLOW-UP: CBC with differential, CMP and magnesium in a.m. TREATMENT/EQUIPMENT ORDERS: INFUSION EQUIPMENT NEEDED: IV Line Physical Therapy For: Evalulation/Treatment Occupational Therapy For: Evaluation/Treatment Speech Language Pathology For: Evaluation/Treatment DISCHARGE MEDICATIONS: Home Meds Reported Medications Amino Acids 10 % (TROPHAMINE) 500 Ml Iv.soln, 500 ML IV DAILY 1999 for IV SUPPLEMENTATION, MISC 12/21/18 Ipratropium/Albuterol Sulfate (DUONEB 0.5-3(2.5) MG/3 ML) 3 Ml Ampul.neb, 3 ML NEB BID for DYSPNEA, EACH 12/21/18 Bisacodyl (DULCOLAX) 10 Mg Supp.rect, 10 MG RC PRN DAILY PRN for CONSTIPATION, SUPP.RECT 0 Refills 12/21/18 Ipratropium/Albuterol Sulfate (DUONEB 0.5-3(2.5) MG/3 ML) 3 Ml Ampul.neb, 3 ML NEB PRN Q4HRS PRN for DYSPNEA, EACH 12/21/18 Atorvastatin Calcium (ATORVASTATIN CALCIUM) 40 Mg Tablet, 1 TAB PO QHS for HIGH CHOLESTEROL, #30 TAB 5 Refills 12/21/18 Simethicone (SIMETHICONE) 80 Mg Tab.chew, 80 MG PO PRN TID PRN for INDIGESTION, TAB.CHEW 12/21/18 Insulin Lispro (HUMALOG) 100 Unit/1 Ml Vial, 0 SQ Q6HRS for DIABETES/TPN, VIAL 12/21/18 Ondansetron Hcl/Pf (ONDANSETRON HCL 4 MG/2 ML VIAL) 4 Mg/2 Ml Vial, 4 MG IJ PRN Q6HRS PRN for NAUSEA/VOMITING, VIAL 12/21/18 Pioglitazone Hcl (ACTOS) 15 Mg Tablet, 1 TAB PO DAILY for DIABETES, #30 TAB 5 Refills 12/21/18 Acetaminophen (TYLENOL EXTRA STRENGTH) 500 Mg Tablet, 1000 MG PO PRN Q6HRS PRN for MILD PAIN, TAB 12/21/18 Sennosides/Docusate Sodium (SENOKOT-S TABLET) 1 Each Tablet, 1 TAB PO BID for STOOL SOFTENER, #30 TAB 12/21/18 Cholecalciferol (Vitamin D3) (VITAMIN D3) 1,000 Unit Tablet, 1 TAB PO DAILY for supplement, #30 TAB 5 Refills 12/21/18 Carvedilol (CARVEDILOL ) 12.5 Mg Tablet, 12.5 MG PO BIDWMEALS for CARDIAC, TAB 12/21/18 REHANA CASE MD Jan 04, 2019 10:36
--- NOTE | 2019-01-04 11:15 | NUR ---
pt was able to take a few steps this am to chair x 2 assist. pt now assisted back to bed x2 assist and a gait belt. pt tolerated sitting up in chair well. pt utilizing oral swabs for his mouth. Pt being evaluated [facility] and family aware.
--- NOTE | 2019-01-04 11:49 | PDOC ---
PULMONARY PROGRESS NOTES Subjective extubated 01/03 doing better Vitals Vital Signs Date Time Temp Pulse Resp B/P (MAP) Pulse Ox O2 Delivery O2 Flow Rate FiO2 01/04/19 10:05 97 18 128/67 (87) 96 Nasal Cannula 4.0 01/04/19 07:00 99.6 99.6 General: Alert, No acute distress HEENT: Other (nc at perrl nose clear orally intubated neck no lad no thyromegaly) Lungs: Other (decrease bs) Cardiovascular: S1, S2 Abdomen: Soft, Non-tender, Other (G TUBE no mass) Extremities: Other (EDEMA) Skin: Warm Labs Laboratory Tests Test 01/02/19 12:01 01/02/19 14:15 01/02/19 17:42 01/03/19 00:10 Glucose (Fingerstick) 268 mg/dL (70-99) 304 mg/dL (70-99) 310 mg/dL (70-99) Vancomycin Level Trough 19.0 mcg/mL (10.0-20.0) Vancomycin Last Dose Date Unk Vancomycin Last Dose Time Unk Test 01/03/19 05:20 01/03/19 05:25 01/03/19 08:00 01/03/19 09:10 White Blood Count 9.1 x10^3/uL (4.0-11.0) Red Blood Count 3.96 x10^6/uL (4.30-5.70) Hemoglobin 10.2 g/dL (13.0-17.5) Hematocrit 32.7 % (39.0-53.0) Mean Corpuscular Volume 83 fL (79-100) Mean Corpuscular Hemoglobin 26 pg (25-35) Mean Corpuscular Hemoglobin Concent 31 g/dL (31-37) Red Cell Distribution Width 19.1 % (11.5-14.5) Platelet Count 271 x10^3/uL (140-400) Neutrophils (%) (Auto) 74 % (31-73) Lymphocytes (%) (Auto) 13 % (24-48) Monocytes (%) (Auto) 9 % (0-9) Eosinophils (%) (Auto) 2 % (0-3) Basophils (%) (Auto) 1 % (0-3) Neutrophils # (Auto) 6.8 x10^3uL (1.8-7.7) Lymphocytes # (Auto) 1.2 x10^3/uL (1.0-4.8) Monocytes # (Auto) 0.8 x10^3/uL (0.0-1.1) Eosinophils # (Auto) 0.2 x10^3/uL (0.0-0.7) Basophils # (Auto) 0.1 x10^3/uL (0.0-0.2) Sodium Level 143 mmol/L (136-145) Potassium Level 4.0 mmol/L (3.5-5.1) Chloride Level 105 mmol/L (98-107) Carbon Dioxide Level 33 mmol/L (21-32) Anion Gap 5 (6-14) Blood Urea Nitrogen 23 mg/dL (8-26) Creatinine 0.6 mg/dL (0.7-1.3) Estimated GFR (Cockcroft-Gault) 138.4 BUN/Creatinine Ratio 38 (6-20) Glucose Level 324 mg/dL (70-99) Calcium Level 7.8 mg/dL (8.5-10.1) Total Bilirubin 0.5 mg/dL (0.2-1.0) Aspartate Amino Transf (AST/SGOT) 34 U/L (15-37) Alanine Aminotransferase (ALT/SGPT) 70 U/L (16-63) Alkaline Phosphatase 153 U/L (46-116) Total Protein 5.1 g/dL (6.4-8.2) Albumin 1.7 g/dL (3.4-5.0) Albumin/Globulin Ratio 0.5 (1.0-1.7) Glucose (Fingerstick) 315 mg/dL (70-99) O2 Saturation 93 % (92-99) 92 % (92-99) Arterial Blood pH 7.48 (7.35-7.45) 7.51 (7.35-7.45) Arterial Blood pCO2 at Patient Temp 41 mmHg (35-46) 44 mmHg (35-46) Arterial Blood pO2 at Patient Temp 67 mmHg (75-108) 61 mmHg (75-108) Arterial Blood HCO3 30 mmol/L (21-28) 34 mmol/L (21-28) Arterial Blood Base Excess 6 mmol/L (-3-3) 10 mmol/L (-3-3) FiO2 40 40 Test 01/03/19 12:05 4/7/19 17:35 01/04/19 00:16 01/04/19 06:08 Glucose (Fingerstick) 340 mg/dL (70-99) 362 mg/dL (70-99) 310 mg/dL (70-99) 305 mg/dL (70-99) Laboratory Tests Test 01/03/19 12:05 01/03/19 17:35 01/04/19 00:16 01/04/19 06:08 Glucose (Fingerstick) 340 mg/dL (70-99) 362 mg/dL (70-99) 310 mg/dL (70-99) 305 mg/dL (70-99) Medications Active Scripts Medications Dose Route/Sig Max Daily Dose Days Date Category Trophamine (Amino Acids 10 %) 500 Ml Iv.soln 500 Ml IV DAILY 199912/21/18 Reported Duoneb 0.5-3(2.5) Mg/3 Ml (Albuterol/Ipratropium) 3 Ml Ampul.neb 3 Ml NEB BID 12/21/18 Reported Dulcolax (Bisacodyl) 10 Mg Supp.rect 10 Mg RC PRN DAILY PRN 12/21/18 Reported Duoneb 0.5-3(2.5) Mg/3 Ml (Albuterol/Ipratropium) 3 Ml Ampul.neb 3 Ml NEB PRN Q4HRS PRN 12/21/18 Reported Atorvastatin Calcium 40 Mg Tablet 1 Tab PO QHS 12/21/18 Reported Simethicone 80 Mg Tab.chew 80 Mg PO PRN TID PRN 12/21/18 Reported Humalog (Insulin Lispro) 100 Unit/1 Ml Vial 0 SQ Q6HRS 12/21/18 Reported Ondansetron Hcl 4 Mg/2 Ml Vial (Ondansetron Hcl/Pf) 4 Mg/2 Ml Vial 4 Mg IJ PRN Q6HRS PRN 12/21/18 Reported Actos (Pioglitazone Hcl) 15 Mg Tablet 1 Tab PO DAILY 12/21/18 Reported Tylenol Extra Strength (Acetaminophen) 500 Mg Tablet 1,000 Mg PO PRN Q6HRS PRN 12/21/18 Reported Senokot-S Tablet (Sennosides/Docusate Sodium) 1 Each Tablet 1 Tab PO BID 12/21/18 Reported Vitamin D3 (Cholecalciferol (Vitamin D3)) 1,000 Unit Tablet 1 Tab PO DAILY 12/21/18 Reported Carvedilol (Carvedilol) 12.5 Mg Tablet 12.5 Mg PO BIDWMEALS 12/21/18 Reported Comments reviewed CXR 4/5 Small right effusions with adjacent infiltrates ( R>L). No change. Impression . 1. Expected hypoxemic respiratory failure, status post open pancreatic pseudocyst gastrostomy, open cholecystectomy, G-tube placement. extubated 01/03 2. History of necrotizing pancreatitis. 3. Abnormal x-ray c/w basal effusions/ Mild CHF 4. Possible sepsis. 5. Coronary artery disease, status post coronary artery bypass grafting. 6. History of alcoholism. 7. Protein malnutrition, present upon admission. 8. Acute blood loss anemia, expected. S/P TRANSFUSIONS 9. encephalopathy/ sedation induced./ improving 10. abnl LFT's Plan . Nasal canula 02 titration to keep sat 94% OFF PRESSORS Abnormal LFTs per GI TPN FOR NUTRITION SPEECH EVAL TODAY DVT PROPH FOLLOW CONSULTANTS INPUT DIURESIS PRN ABX PER ID discussed w rn, rt/ transfer to floor STEVIE WHITE MD Jan 04, 2019 11:49
--- NOTE | 2019-01-04 12:16 | PDOC ---
SURGICAL PROGRESS NOTE Subjective pain managed Vital Signs Vital Signs Date Time Temp Pulse Resp B/P (MAP) Pulse Ox O2 Delivery O2 Flow Rate FiO2 01/04/19 10:05 97 18 128/67 (87) 96 Nasal Cannula 4.0 01/04/19 07:00 99.6 99.6 I&O Intake and Output 01/04/19 07:00 Intake Total 3560.67 ml Output Total 3085 ml Balance 475.67 ml IV Total 1883.67 ml Tube Feeding 1552 ml Other 125 ml Output Urine Total 1985 ml Stool Total 1100 ml Gastric Drainage Total 0 ml General: Alert, Cooperative Abdomen: Soft, Other (g tube with TF) Labs Laboratory Tests Test 01/02/19 14:15 01/02/19 17:42 01/03/19 00:10 01/03/19 05:20 Vancomycin Level Trough 19.0 mcg/mL (10.0-20.0) Vancomycin Last Dose Date Unk Vancomycin Last Dose Time Unk Glucose (Fingerstick) 304 mg/dL (70-99) 310 mg/dL (70-99) White Blood Count 9.1 x10^3/uL (4.0-11.0) Red Blood Count 3.96 x10^6/uL (4.30-5.70) Hemoglobin 10.2 g/dL (13.0-17.5) Hematocrit 32.7 % (39.0-53.0) Mean Corpuscular Volume 83 fL (79-100) Mean Corpuscular Hemoglobin 26 pg (25-35) Mean Corpuscular Hemoglobin Concent 31 g/dL (31-37) Red Cell Distribution Width 19.1 % (11.5-14.5) Platelet Count 271 x10^3/uL (140-400) Neutrophils (%) (Auto) 74 % (31-73) Lymphocytes (%) (Auto) 13 % (24-48) Monocytes (%) (Auto) 9 % (0-9) Eosinophils (%) (Auto) 2 % (0-3) Basophils (%) (Auto) 1 % (0-3) Neutrophils # (Auto) 6.8 x10^3uL (1.8-7.7) Lymphocytes # (Auto) 1.2 x10^3/uL (1.0-4.8) Monocytes # (Auto) 0.8 x10^3/uL (0.0-1.1) Eosinophils # (Auto) 0.2 x10^3/uL (0.0-0.7) Basophils # (Auto) 0.1 x10^3/uL (0.0-0.2) Sodium Level 143 mmol/L (136-145) Potassium Level 4.0 mmol/L (3.5-5.1) Chloride Level 105 mmol/L (98-107) Carbon Dioxide Level 33 mmol/L (21-32) Anion Gap 5 (6-14) Blood Urea Nitrogen 23 mg/dL (8-26) Creatinine 0.6 mg/dL (0.7-1.3) Estimated GFR (Cockcroft-Gault) 138.4 BUN/Creatinine Ratio 38 (6-20) Glucose Level 324 mg/dL (70-99) Calcium Level 7.8 mg/dL (8.5-10.1) Total Bilirubin 0.5 mg/dL (0.2-1.0) Aspartate Amino Transf (AST/SGOT) 34 U/L (15-37) Alanine Aminotransferase (ALT/SGPT) 70 U/L (16-63) Alkaline Phosphatase 153 U/L (46-116) Total Protein 5.1 g/dL (6.4-8.2) Albumin 1.7 g/dL (3.4-5.0) Albumin/Globulin Ratio 0.5 (1.0-1.7) Test 01/03/19 05:25 01/03/19 08:00 01/03/19 09:10 01/03/19 12:05 Glucose (Fingerstick) 315 mg/dL (70-99) 340 mg/dL (70-99) O2 Saturation 93 % (92-99) 92 % (92-99) Arterial Blood pH 7.48 (7.35-7.45) 7.51 (7.35-7.45) Arterial Blood pCO2 at Patient Temp 41 mmHg (35-46) 44 mmHg (35-46) Arterial Blood pO2 at Patient Temp 67 mmHg (75-108) 61 mmHg (75-108) Arterial Blood HCO3 30 mmol/L (21-28) 34 mmol/L (21-28) Arterial Blood Base Excess 6 mmol/L (-3-3) 10 mmol/L (-3-3) FiO2 40 40 Test 01/03/19 17:35 01/04/19 00:16 01/04/19 06:08 Glucose (Fingerstick) 362 mg/dL (70-99) 310 mg/dL (70-99) 305 mg/dL (70-99) Laboratory Tests Test 01/03/19 17:35 01/04/19 00:16 01/04/19 06:08 Glucose (Fingerstick) 362 mg/dL (70-99) 310 mg/dL (70-99) 305 mg/dL (70-99) Assessment/Plan supportive measures will review with MAIKOL Hadley APRN Jan 04, 2019 12:16
--- NOTE | 2019-01-04 13:39 | NUR ---
SS following for discharge planning. Pt's RN notified SS that pt is ready to return to [facility]. [phone]; fax [phone]. Discharge orders and clinical updates phoned and faxed to [facility]. Packet and ambulance form on the chart. SS will await bed availability at [facility] and will proceed accordingly with transfer. Pt's RN notified.
--- NOTE | 2019-01-04 14:08 | NUR ---
SS following up with discharge planning. [facility] reported that bed was available for pt at 1500. Pt will discharge today and return to [facility] at 1500 via [facility] ambulance. Pt's RN and pt's family notified.
--- NOTE | 2019-01-04 15:20 | NUR ---
[facility] for [facility] care. report called.
--- NOTE | 2019-01-26 10:29 | PDOC3 ---
Discharge Summary Visit Information Date of Admission: Dec 22, 2018 Date of Discharge: Jan 04, 2019 Admitting Diagnosis: Pancreatitis with pancreatic pseudocyst Brief Hospital Course Allergies Allergies Coded Allergies Type Severity Reaction Last Updated Verified No Known Drug Allergies 12/22/18 No Brief Hospital Course Mr. Prater is a 59 old M with severe pancreatitis. Patient was recovering at [facility], but noticed to have large persistent pancreatic pseudocyst. He was admitted at [facility] for cystgastrostomy, performed on day of admission. He had prolonged, expected post operative respiratory failure, requiring prolonged vent weaning. He was weaned and gradually improved and subsequently d/c'ed back to [facility]. He is tolerating diet and increasing activity. Discharge Information Condition at Discharge: Improved Scheduled Atorvastatin Calcium (Atorvastatin Calcium) 40 Mg Tablet, 1 TAB PO QHS for HIGH CHOLESTEROL, #30 Ref 5 (Reported) Entered as Reported by: MYRA MON on 12/21/18 1254 Last Action: HELD on 12/23/18957 by REHANA CASE Carvedilol (Carvedilol ) 12.5 Mg Tablet, 12.5 MG PO BIDWMEALS for CARDIAC, (Reported) Entered as Reported by: MYRA MON on 12/21/18 1241 Last Action: HELD on 12/23/18957 by REHANA CASE Insulin Glargine,Hum.rec.anlog (Lantus Solostar) 100 Unit/1 Ml Insuln.pen, 10 UNITS SQ DAILY08 for Diabetes for 30 Days, #30 Prescribed by: REHANA CASE on 01/04/19 1030 Insulin Lispro (Humalog) 100 Unit/1 Ml Vial, 0 SQ Q6HRS for DIABETES/TPN, (Reported) Entered as Reported by: MYRA MON on 12/21/18 1252 Last Action: HELD on 12/23/18957 by REHANA CASE Ipratropium/Albuterol Sulfate (Duoneb 0.5-3(2.5) Mg/3 Ml) 3 Ml Ampul.neb, 3 ML NEB BID for DYSPNEA, (Reported) Entered as Reported by: MYRA MON on 12/21/18 1301 Last Action: HELD on 12/23/18957 by REHANA CASE Scheduled PRN 0.9 % Sodium Chloride (Normal Saline Flush) 2 Ml Disp.syrin, 3 ML IV QSHIFT PRN for AFTER MEDS AND BLOOD DRAWS for 30 Days, #60 Prescribed by: REHANA CASE on 01/04/19 1030 Acetaminophen (Tylenol Extra Strength) 500 Mg Tablet, 1,000 MG PO PRN Q6HRS PRN for MILD PAIN, (Reported) Entered as Reported by: MYRA MON on 12/21/18 1245 Last Action: HELD on 12/23/18957 by REHANA CASE Acetaminophen (Acetaminophen Supp) 650 Mg Supp.rect, 650 MG PA PRN Q6HRS PRN for MILD PAIN / TEMP for 7 Days Prescribed by: REHANA CASE on 01/04/19 1030 Ipratropium/Albuterol Sulfate (Duoneb 0.5-3(2.5) Mg/3 Ml) 3 Ml Ampul.neb, 3 ML NEB PRN Q4HRS PRN for DYSPNEA, (Reported) Entered as Reported by: MYRA MON on 12/21/18 1256 Last Action: HELD on 12/23/18957 by REHANA CASE Morphine Sulfate (Morphine Sulfate) 4 Mg/1 Ml Cartridge, 4 MG IV PRN Q3HRS PRN for PAIN for 14 Days, #56 Prescribed by: REHANA CASE on 01/04/19 1030 Naloxone Hcl (Naloxone Hcl) 0.4 Mg/1 Ml Vial, 0.4 MG IV PRN Q2MIN PRN for SEE INSTRUCTIONS for 30 Days, #30 Prescribed by: REHNAA CASE on 01/04/19 1030 Ondansetron Hcl/Pf (Ondansetron Hcl 4 Mg/2 Ml Vial) 4 Mg/2 Ml Vial, 4 MG IJ PRN Q6HRS PRN for NAUSEA/VOMITING, (Reported) Entered as Reported by: MYRA MON on 12/21/18 1250 Last Action: HELD on 12/23/18957 by REHANA CASE [Dextrose 50 % In Water] 50 ML DISP.SYRIN, 12.5 GM IV PRN Q15MIN PRN for SEE COMMENTS for 30 Days Prescribed by: REHANA CASE on 01/04/19 1030 GOMEZ BRADLEY MD Jan 26, 2019 10:29
== END 2019-01-04 15:20 | disposition home or self-care (01) | DRG 853 ==
LOC: SURG 10:18 → EDSTATUS 11:30 → 1 WEST ICU 14:43
PROVIDERS: ADMIT Surgery; ATTEND Surgery
PROC: 0BH17EZ Insertion of Endotracheal Airway into Trachea, Via Natural or Artificial Opening (ICD-10-PCS; 2018-12-22)
PROC: 5A1955Z Respiratory Ventilation, Greater than 96 Consecutive Hours (ICD-10-PCS; 2018-12-22)
PROC: 0D9600Z Drainage of Stomach with Drainage Device, Open Approach (ICD-10-PCS; 2018-12-22)
PROC: 0DJW4ZZ Inspection of Peritoneum, Percutaneous Endoscopic Approach (ICD-10-PCS; 2018-12-22)
PROC: 30233N1 Transfusion of Nonautologous Red Blood Cells into Peripheral Vein, Percutaneous Approach (ICD-10-PCS; 2018-12-22)
PROC: 0DB60ZX Excision of Stomach, Open Approach, Diagnostic (ICD-10-PCS; 2018-12-22)
PROC: 0DH60UZ Insertion of Feeding Device into Stomach, Open Approach (ICD-10-PCS; 2018-12-22)
PROC: 0FT40ZZ Resection of Gallbladder, Open Approach (ICD-10-PCS; principal; 2018-12-22 11:30)
PROC: 0FBG0ZX Excision of Pancreas, Open Approach, Diagnostic (ICD-10-PCS; 2018-12-22 11:30)
DX: A41.9 Sepsis, unspecified organism (principal); G93.41 Metabolic encephalopathy; E43 Unspecified severe protein-calorie malnutrition; J96.01 Acute respiratory failure with hypoxia; J96.02 Acute respiratory failure with hypercapnia; K85.91 Acute pancreatitis with uninfected necrosis, unspecified; D62 Acute posthemorrhagic anemia; E66.2 Morbid (severe) obesity with alveolar hypoventilation; I50.20 Unspecified systolic (congestive) heart failure; K56.7 Ileus, unspecified; K86.3 Pseudocyst of pancreas; K81.0 Acute cholecystitis; K86.1 Other chronic pancreatitis; E11.9 Type 2 diabetes mellitus without complications; Z68.29 Body mass index [BMI] 29.0-29.9, adult; E78.5 Hyperlipidemia, unspecified; E83.42 Hypomagnesemia; E87.6 Hypokalemia; I11.0 Hypertensive heart disease with heart failure; I25.10 Atherosclerotic heart disease of native coronary artery without angina pectoris; I48.2 Chronic atrial fibrillation; K21.9 Gastro-esophageal reflux disease without esophagitis; K31.89 Other diseases of stomach and duodenum; K57.90 Diverticulosis of intestine, part unspecified, without perforation or abscess without bleeding; I95.81 Postprocedural hypotension; Z53.31 Laparoscopic surgical procedure converted to open procedure; Z87.820 Personal history of traumatic brain injury; Z87.891 Personal history of nicotine dependence; Z90.49 Acquired absence of other specified parts of digestive tract; Z93.1 Gastrostomy status; Z95.1 Presence of aortocoronary bypass graft; Z98.61 Coronary angioplasty status; F10.20 Alcohol dependence, uncomplicated; Z87.81 Personal history of (healed) traumatic fracture
CPT/HCPCS: 36415; 36600; 71045; 74018; 80053; 80061; 80202; 82805; 82962; 83690; 83735; 83880; 84100; 84132; 84145; 85025; 86850; 86900; 86901; 86920; 87040; 87070; 87071; 87075; 87205; 87641; 88112; 88304; 88305; 93005; 93306; 94002; 94003; 94640; 94660; 94760; A7015; C9113; J0171; J0610; J0696; J1100; J1265; J1644; J1650; J1815; J1940; J2001; J2020; J2185; J2248; J2250; J2270; J2370; J2405; J2543; J2704; J2710; J3010; J3370; J3475; J3480; J3490; J7030; J7040; J7120; P9016; P9045; P9046; Q9967; 97530